=== PATIENT | female | born 1945 | race African-American/Black ===

== ENCOUNTER 2022-10-21 21:04 | Observation (INO) | payer MEDICARE ==
--- NOTE | 2022-10-21 21:21 | ED ---
General Adult HPI - General Chief complaint: Abdominal Pain Stated complaint: nausea/vomiting Time Seen by Provider: 10/21/22 21:15 Source: patient, family Mode of arrival: ambulatory Limitations: no limitations - History of Present Illness Initial comments: Patient presents to the ED with her son for evaluation. Patient states that she has had nausea and vomiting for the past 3 days or so. Patient also admits to having a mild cough and feeling generally weak. Patient also states that she has had "chills" at times. Patient denies having any "pain". Patient denies measured fever, headache, focal numbness/weakness/neuro deficit, visual changes, speech difficulty, sore throat, chest pain or pressure, dyspnea, palpitations, dizziness, abdominal pain, diarrhea or constipation, bloody or melanotic stool, hematemesis, dysuria or urinary symptoms, or any other symptoms or complaints. Patient's son states that the patient appeared to be dragging her left leg when she came out of the bathroom earlier today, and he is unsure if this may be a "h ip issue". Patient denies having any lower extremity pain or leg numbness/weakness. Patient denies Covid vaccination. - Related Data Home Medications Medication Instructions Recorded Confirmed Benztropine Mesylate [Cogentin] 2 mg PO BID 09/18/17 09/18/17 Loratadine [Claritin] 10 mg PO DAILY 09/18/17 09/18/17 Multivitamins, Thera [Multivitamin 1 tab PO DAILY 09/18/17 09/18/17 (formulary)] Triamcinolone 0.5% Cream [Kenalog 1 applic TOPICAL BID PRN 09/18/17 09/18/17 0.5% Cream] haloperidoL [Haldol] 3 mg PO HS 09/18/17 09/18/17 Allergies Allergy/AdvReac Type Severity Reaction Status Date / Time metformin Allergy Unknown Verified 10/21/22 21:14 Sulfa (Sulfonamide Allergy Unknown Verified 10/21/22 21:14 Antibiotics) Review of Systems ROS Statement: Those systems with pertinent positive or pertinent negative responses have been documented in the HPI. ROS Other: All systems not noted in ROS Statement are negative. Past Medical History Past Medical History: CVA/TIA, Dementia, Diabetes Mellitus, Hypertension, Osteoarthritis (OA) Additional Past Medical History / Comment(s): Pt states she is on an antibiotic for ear infection/throat infection at this time, TIA which affected speech, pt denies HTN but it is documented in past medical hx, diet controlled diabetes History of Any Multi-Drug Resistant Organisms: None Reported Past Surgical History: Orthopedic Surgery Additional Past Surgical History / Comment(s): I&D tooth abscess, left trigger finger surgery Past Anesthesia/Blood Transfusion Reactions: No Reported Reaction Past Psychological History: Anxiety, Bipolar, Depression Smoking Status: Never smoker Past Alcohol Use History: None Reported Past Drug Use History: None Reported - Past Family History Father Family Medical History: No Reported History Mother Family Medical History: No Reported History General Exam Limitations: no limitations General appearance: alert, in no apparent distress Head exam: Present: atraumatic, normocephalic Eye exam: Present: normal appearance, PERRL, EOMI ENT exam: Present: normal oropharynx, mucous membranes moist Respiratory exam: Present: normal lung sounds bilaterally. Absent: respiratory distress, wheezes, rales, rhonchi, stridor Cardiovascular Exam: Present: regular rate, normal rhythm, normal heart sounds, other (Normal radial pulses bilaterally) GI/Abdominal exam: Present: soft, diminished bowel sounds. Absent: distended, tenderness, guarding Rectal exam: Present: normal rectal tone, other (Brown-colored stool was recovered from rectal vault on digital rectal exam and sent for Hemoccult testing). Absent: tenderness Extremities exam: Present: other (Pelvis is stable and nontender; patient has full range of motion at bilateral hips). Absent: tenderness, pedal edema, calf tenderness Back exam: Absent: tenderness, CVA tenderness (R), CVA tenderness (L) Neurological exam: Present: alert, oriented X3, CN II-XII intact, other (Patient has 5 out of 5 strength in all 4 extremities; no evidence of neurological deficit). Absent: motor sensory deficit Psychiatric exam: Present: normal affect, normal mood Skin exam: Present: warm, dry, intact, normal color Course Vital Signs 10/21/22 10/21/22 10/21/22 21:09 22:00 23:00 Temperature 97.5 F L Pulse Rate 104 H 96 93 Respiratory 18 18 18 Rate Blood Pressure 148/83 144/89 159/79 O2 Sat by Pulse 99 98 98 Oximetry 10/22/22 00:00 Temperature 98.1 F Pulse Rate 96 Respiratory 16 Rate Blood Pressure 148/86 O2 Sat by Pulse 98 Oximetry - Reevaluation(s) Reevaluation #1: 10/21/22 23:43 Case, H&P, test results and ED management were discussed with Dr. Donahue. She accepts hospital admission. She has no further recommendations at this time. 10/21/22 23:49 Patient states that her symptoms have improved with ED treatment. Patient's abdomen remains soft and nontender on exam. Patient is aware of her test results, and she agrees with hospital admission at this time. Medical Decision Making - Medical Decision Making Was pt. sent in by a medical professional or institution (, JF, [employer], urgent care, hospital, or fpc...) When possible be specific @ -No Did you speak to anyone other than the patient for history (EMS, parent, family, police, friend...)? What history was obtained from this source @ -No Did you review nursing and triage notes (agree or disagree)? Why? @ -I reviewed and agree with nursing and triage notes Were old charts reviewed (outside hosp., previous admission, EMS record, old EKG, old radiological studies, urgent care reports/EKG's, fpc records)? Report findings @ -No old charts were reviewed Differential Diagnosis (chest pain, altered mental status, abdominal pain women, abdominal pain men, vaginal bleeding, weakness, fever, dyspnea, syncope, headache, dizziness, GI bleed, back pain, seizure, CVA, palpatations, mental health)? @ -Vomiting, gastroenteritis, food toxicity, influenza, Covid, viral illness, bronchitis, pneumonia, URI, dehydration, electrolyte abnormality, anemia, medication reaction EKG interpreted by me (3pts min.). @ -None done X-rays interpreted by me (1pt min.). @ -Negative chest x-ray CT interpreted by me (1pt min.). @ -None done U/S interpreted by me (1pt. min.). @ -None done What testing was considered but not performed or refused? (CT, X-rays, U/S, labs)? Why? @ -None What meds were considered but not given or refused? Why? @ -None Did you discuss the management of the patient with other professionals (professionals i.e. , JF, [employer], lab, RT, psych nurse, professor of social work, woodworker helper, teacher, service officer, porter sample case)? Give summary @ -See above Was smoking cessation discussed for >3mins.? @ -No Was critical care preformed (if so, how long)? @ -No Were there social determinants of health that impacted care today? How? (Homelessness, low income, unemployed, alcoholism, drug addiction, transportation, low edu. Level, literacy, decrease access to med. care, prison, rehab)? @ -No Was there de-escalation of care discussed even if they declined (Discuss DNR or withdrawal of care, Hospice)? DNR status @ -No What co-morbidities impacted this encounter? (DM, HTN, Smoking, COPD, CAD, Cancer, CVA, ARF, Chemo, Hep., AIDS, mental health diagnosis, sleep apnea, morbid obesity)? @ -None Was patient admitted / discharged? Hospital course, mention meds given and route, prescriptions, significant lab abnormalities, going to OR and other pertinent info. @ -Patient reports having nausea and vomiting since yesterday. Patient's viral studies are negative. Patient's chest x-ray is negative. Patient is afebrile and without leukocytosis. Patient has a benign abdominal exam. Patient's hemoglobin is noted to be 7.3 on evaluation. Patient's Hemoccult test is negative. I am uncertain of the etiology of the patient's anemia, but given she reports feeling weak, will admit the patient to the hospital for observation and further evaluation. Dr. Donahue has accepted hospital admission. Undiagnosed new problem with uncertain prognosis? @ -No Drug Therapy requiring intensive monitoring for toxicity (Heparin, Nitro, I nsulin, Cardizem)? @ -No Were any procedures done? @ -No Diagnosis/symptom? @ -Vomiting Acute, or Chronic, or Acute on Chronic? @ -Acute Uncomplicated (without systemic symptoms) or Complicated (systemic symptoms)? @ -Uncomplicated Side effects of treatment? @ -No Exacerbation, Progression, or Severe Exacerbation? @ -No Poses a threat to life or bodily function? How? (Chest pain, [place], [place], pneumonia, PE, COPD, DKA, ARF, appy, cholecystitis, CVA, Diverticulitis, Homicidal, Suicidal, threat to staff... and all critical care pts) @ -No Diagnosis/symptom? @ -Anemia Acute, or Chronic, or Acute on Chronic? @ -Uncertain Uncomplicated (without systemic symptoms) or Complicated (systemic symptoms)? @ -Uncomplicated Side effects of treatment? @ -none Exacerbation, Progression, or Severe Exacerbation] @ -no Poses a threat to life or bodily function? @ -no - Lab Data Result diagrams: 10/21/22 21:42 10/21/22 21:42 Lab Results 10/21/22 10/21/22 10/21/22 Range/Units 21:42 21:42 21:42 WBC 5.5 (3.8-10.6) k/uL RBC 2.51 L (3.80-5.40) m/uL Hgb 7.3 L (11.4-16.0) gm/dL Hct 22.4 L (34.0-46.0) % MCV 89.3 (80.0-100.0) fL MCH 28.9 (25.0-35.0) pg MCHC 32.3 (31.0-37.0) g/dL RDW 14.4 (11.5-15.5) % Plt Count 151 (150-450) k/uL MPV 7.3 Neutrophils % 65 % Lymphocytes % 27 % Monocytes % 5 % Eosinophils % 1 % Basophils % 0 % Neutrophils # 3.6 (1.3-7.7) k/uL Lymphocytes # 1.5 (1.0-4.8) k/uL Monocytes # 0.3 (0-1.0) k/uL Eosinophils # 0.1 (0-0.7) k/uL Basophils # 0.0 (0-0.2) k/uL Sodium 138 (137-145) mmol/L Potassium 4.7 (3.5-5.1) mmol/L Chloride 105 (98-107) mmol/L Carbon Dioxide 18 L (22-30) mmol/L Anion Gap 15 mmol/L BUN 19 H (7-17) mg/dL Creatinine 0.55 (0.52-1.04) mg/dL Est GFR (CKD-EPI)AfAm >90 (>60 ml/min/1.73 sqM) Est GFR (CKD-EPI)NonAf >90 (>60 ml/min/1.73 sqM) Glucose 156 H (74-99) mg/dL Calcium 9.5 (8.4-10.2) mg/dL Total Bilirubin 0.7 (0.2-1.3) mg/dL AST 34 (14-36) U/L ALT 26 (4-34) U/L Alkaline Phosphatase 118 (38-126) U/L Total Protein 9.0 H (6.3-8.2) g/dL Albumin 4.3 (3.5-5.0) g/dL Lipase 48 (23-300) U/L Stool Occult Blood (Negative) Coronavirus (PCR) (Not Detectd) Influenza Type A RNA Not Detected (Not Detectd) Influenza Type B (PCR) Not Detected (Not Detectd) 10/21/22 10/21/22 Range/Units 21:42 23:11 WBC (3.8-10.6) k/uL RBC (3.80-5.40) m/uL Hgb (11.4-16.0) gm/dL Hct (34.0-46.0) % MCV (80.0-100.0) fL MCH (25.0-35.0) pg MCHC (31.0-37.0) g/dL RDW (11.5-15.5) % Plt Count (150-450) k/uL MPV Neutrophils % % Lymphocytes % % Monocytes % % Eosinophils % % Basophils % % Neutrophils # (1.3-7.7) k/uL Lymphocytes # (1.0-4.8) k/uL Monocytes # (0-1.0) k/uL Eosinophils # (0-0.7) k/uL Basophils # (0-0.2) k/uL Sodium (137-145) mmol/L Potassium (3.5-5.1) mmol/L Chloride (98-107) mmol/L Carbon Dioxide (22-30) mmol/L Anion Gap mmol/L BUN (7-17) mg/dL Creatinine (0.52-1.04) mg/dL Est GFR (CKD-EPI)AfAm (>60 ml/min/1.73 sqM) Est GFR (CKD-EPI)NonAf (>60 ml/min/1.73 sqM) Glucose (74-99) mg/dL Calcium (8.4-10.2) mg/dL Total Bilirubin (0.2-1.3) mg/dL AST (14-36) U/L ALT (4-34) U/L Alkaline Phosphatase (38-126) U/L Total Protein (6.3-8.2) g/dL Albumin (3.5-5.0) g/dL Lipase (23-300) U/L Stool Occult Blood Negative (Negative) Coronavirus (PCR) Not Detected (Not Detectd) Influenza Type A RNA (Not Detectd) Influenza Type B (PCR) (Not Detectd) - Radiology Data Chest x-ray: No active cardiopulmonary disease. No change. Normal heart. Disposition Clinical Impression: Nausea and vomiting, Anemia Disposition: ADMITTED IP TO THIS HOSP Condition: Stable Is patient prescribed a controlled substance at d/c from ED?: No Referrals: Galina Narayanan MD [Primary Care Provider] - 1-2 days Time of Disposition: 23:43
[2022-10-21] MEDS ORDERED: SODIUM CHLORIDE 0.9% 500 ML 500 ML IV STA (21:26)
[2022-10-21] MEDS ORDERED: ONDANSETRON 4 MG/2 ML VIAL IVP STA (21:26)
--- NOTE | 2022-10-21 21:51 | XR ---
EXAMINATION TYPE: XR chest 2V DATE OF EXAM: 10/21/2022 COMPARISON: 09/18/2017 HISTORY: Chest pain. Cough TECHNIQUE: FINDINGS: Heart and mediastinum are normal. Lungs are clear. Diaphragm is normal. Bony thorax is inta ct IMPRESSION: No active cardiopulmonary disease. No change. Normal heart.
[2022-10-21 21:54] LABS: Basophils % (A) 0 %; Eosinophils # (A) 0.1 k/uL (0-0.7); Eosinophils % (A) 1 %; HCT 22.4 % (34.0-46.0); HGB 7.3 gm/dL (11.4-16.0); Lymphocytes # (A) 1.5 k/uL (1.0-4.8); Lymphocytes % (A) 27 %; MCH 28.9 pg (25.0-35.0); MCHC 32.3 g/dL (31.0-37.0); MCV 89.3 fL (80.0-100.0); Mean Platelet Volume 7.3; Monocytes # (A) 0.3 k/uL (0-1.0); Monocytes % (A) 5 %; Neutrophils # (A) 3.6 k/uL (1.3-7.7); Neutrophils % (A) 65 %; Platelet Count 151 k/uL (150-450); RBC 2.51 m/uL (3.80-5.40); RDW 14.4 % (11.5-15.5); WBC 5.5 k/uL (3.8-10.6)
[2022-10-21 22:05] LABS: ALT 26 U/L (4-34); AST 34 U/L (14-36); African American GFR (CKD) >90 (>60 ml/min/1.73 sqM); Albumin 4.3 g/dL (3.5-5.0); Alkaline Phosphatase 118 U/L (38-126); Anion Gap 15 mmol/L; Blood Urea Nitrogen 19 mg/dL (7-17); Calcium 9.5 mg/dL (8.4-10.2); Carbon Dioxide 18 mmol/L (22-30); Chloride 105 mmol/L (98-107); Glucose 156 mg/dL (74-99); Lipase 48 U/L (23-300); Non-African American GFR(CKD) >90 (>60 ml/min/1.73 sqM); Potassium 4.7 mmol/L (3.5-5.1); Sodium 138 mmol/L (137-145); Total Bilirubin 0.7 mg/dL (0.2-1.3)
[2022-10-21] MEDS ORDERED: NALOXONE 0.4 MG/ML 1 ML VIAL IV PRN (23:43)
[2022-10-21] MEDS ORDERED: ONDANSETRON 4 MG/2 ML VIAL IVP PRN (23:44)
[2022-10-21] MEDS: SODIUM CHLORIDE 0.9% 1,000 ML IV SCH (23:59)
[2022-10-22 06:11] LABS: Basophils # (A) 0.1 k/uL (0-0.2); Basophils % (A) 1 %; Eosinophils # (A) 0.2 k/uL (0-0.7); Eosinophils % (A) 2 %; HCT 35.4 % (34.0-46.0); Lymphocytes # (A) 3.1 k/uL (1.0-4.8); Lymphocytes % (A) 33 %; MCH 28.9 pg (25.0-35.0); MCHC 33.1 g/dL (31.0-37.0); MCV 87.2 fL (80.0-100.0); Mean Platelet Volume 6.9; Monocytes # (A) 0.4 k/uL (0-1.0); Monocytes % (A) 4 %; Neutrophils # (A) 5.5 k/uL (1.3-7.7); Neutrophils % (A) 59 %; Platelet Count 239 k/uL (150-450); RBC 4.06 m/uL (3.80-5.40); RDW 13.9 % (11.5-15.5); WBC 9.4 k/uL (3.8-10.6)
[2022-10-22 06:52] LABS: ALT 23 U/L (4-34); AST 27 U/L (14-36); African American GFR (CKD) >90 (>60 ml/min/1.73 sqM); Albumin 3.4 g/dL (3.5-5.0); Alkaline Phosphatase 96 U/L (38-126); Anion Gap 7 mmol/L; Blood Urea Nitrogen 17 mg/dL (7-17); Carbon Dioxide 24 mmol/L (22-30); Chloride 107 mmol/L (98-107); Glucose 113 mg/dL (74-99); Non-African American GFR(CKD) >90 (>60 ml/min/1.73 sqM); Potassium 4.1 mmol/L (3.5-5.1); Sodium 138 mmol/L (137-145); Total Bilirubin 0.6 mg/dL (0.2-1.3); Total Protein 7.4 g/dL (6.3-8.2)
[2022-10-22 07:49] LABS: HGB 11.7 gm/dL (11.4-16.0)
--- NOTE | 2022-10-22 09:55 | P.HPIM ---
History of Present Illness This is a pleasant 76 years old female with past medical history of CVA/TIA, Dementia, Diabetes Mellitus, Hypertension, Osteoarthritis, Pt states she is on an antibiotic for ear infection/throat infection at this time, TIA which affected speech, diet controlled diabetes, Anxiety, Bipolar, Depression Information were obtained from the patient and son Mr. Gonzalez at bedside. As per son, 10 PM last night and he was helping his mother getting out of the restroom when he notices that she was dragging her left leg and her speech was abnormal, so they came to the hospital. Patient also was complaining of from some nausea and vomiting, she vomited about 3 times yesterday with no blood however no vomiting today and she finished half of her breakfast this morning, no abdominal pain, she's been constipated for 2 days, no diarrhea. She denies any chest pain or dyspnea, no abdominal pain, no urinary symptoms She's been complaining from headache frontal about 4-5/10 in severity, no sinus symptoms, she is ADMITTED from some mild neck pain. She is fully awake and oriented. No numbness or tingling. Family requested to call the son Mr. Ar Ramírez Vitals are stable and patient is a febrile. Labs are reviewed, CBC showing low hemoglobin 7.3, hold records from 2017 was 11.8. BUN elevated 19, rest of the BMP is unremarkable, glucose 156. Liver enzymes no t elevated. Lipase normal Patient covid and influenza virus is are detected Chest x-ray: No active process. Occult blood in the stool is negative Review of Systems Review of systems CONSTITUTIONAL: No fever, no malaise, no fatigue. HEENT: No recent visual problems or hearing problems. Denied any sore throat. CARDIOVASCULAR: No orthopnea, PND, no palpitations, no syncope. PULMONARY: No shortness of breath, no cough, no hemoptysis. GASTROINTESTINAL: No diarrhea, no nausea, no vomiting, no abdominal pain. Normoactive bowel sounds. NEUROLOGICAL: No headaches, no weakness, no numbness. HEMATOLOGICAL: Denies any bleeding or petechiae. GENITOURINARY: Denies any burning micturition, frequency, or urgency. MUSCULOSKELETAL/RHEUMATOLOGICAL: Denies any joint pain, swelling, or any muscle pain. ENDOCRINE: Denies any polyuria or polydipsia. Past Medical History Past Medical History: CVA/TIA, Dementia, Diabetes Mellitus, Hypertension, Osteoarthritis (OA) Additional Past Medical History / Comment(s): Pt states she is on an antibiotic for ear infection/throat infection at this time, TIA which affected speech, pt denies HTN but it is documented in past medical hx, diet controlled diabetes History of Any Multi-Drug Resistant Organisms: None Reported Past Surgical History: Orthopedic Surgery Additional Past Surgical History / Comment(s): I&D tooth abscess, left trigger finger surgery Past Anesthesia/Blood Transfusion Reactions: No Reported Reaction Past Psychological History: Anxiety, Bipolar, Depression Smoking Status: Never smoker Past Alcohol Use History: None Reported Past Drug Use History: None Reported - Past Family History Father Family Medical History: No Reported History Mother Family Medical History: No Reported History Medications and Allergies Home Medications Medication Instructions Recorded Confirmed Type Atorvastatin [Lipitor] 40 mg PO HS 10/22/22 10/22/22 History Benztropine Mesylate [Cogentin] 1 mg PO BID 10/22/22 10/22/22 History Celecoxib [CeleBREX] 100 mg PO BID 10/22/22 10/22/22 History Metoprolol Tartrate [Lopressor] 50 mg PO BID 10/22/22 10/22/22 History haloperidoL [Haldol] 2.5 mg PO HS 10/22/22 10/22/22 History Allergies Allergy/AdvReac Type Severity Reaction Status Date / Time metformin Allergy Unknown Verified 10/22/22 08:12 Sulfa (Sulfonamide Allergy Unknown Verified 10/22/22 08:12 Antibiotics) Physical Exam Vitals: Vital Signs Temp Pulse Pulse Resp BP BP Pulse Ox 10/22/22 00:20 98.3 F 93 16 149/75 98 10/22/22 00:00 98.1 F 96 16 148/86 98 10/21/22 23:00 93 18 159/79 98 10/21/22 22:00 96 18 144/89 98 10/21/22 21:09 97.5 F L 104 H 18 148/83 99 Intake and Output 10/21/22 10/21/22 10/22/22 14:59 22:59 06:59 Other: Weight 77.111 kg 77.111 kg GENERAL: The patient is alert and oriented x3, not in any acute distress. Well developed, well nourished. HEENT: Pupils are round and equally reacting to light. EOMI. No scleral icterus. No conjunctival pallor. Normocephalic, atraumatic. No pharyngeal erythema. No thyromegaly. CARDIOVASCULAR: S1 and S2 present. No murmurs, rubs, or gallops. PULMONARY: Chest is clear to auscultation, no wheezing or crackles. ABDOMEN: Soft, nontender, nondistended, normoactive bowel sounds. No palpable organomegaly. MUSCULOSKELETAL: No joint swelling or deformity. -EXTREMITIES: No cyanosis, clubbing, or pedal edema. Left leg mildly weaker than the right leg and is slower, no loss of sensation. Meningeal signs are absent NEUROLOGICAL: Gross neurological examination did not reveal any focal deficits. SKIN: No rashes. no petechiae. Results CBC & Chem 7: 10/22/22 05:49 10/22/22 05:49 Labs: Abnormal Lab Results - Last 24 Hours (Table) 10/21/22 10/21/22 Range/Units 21:42 21:42 RBC 2.51 L (3.80-5.40) m/uL Hgb 7.3 L (11.4-16.0) gm/dL Hct 22.4 L (34.0-46.0) % Carbon Dioxide 18 L (22-30) mmol/L BUN 19 H (7-17) mg/dL Glucose 156 H (74-99) mg/dL Total Protein 9.0 H (6.3-8.2) g/dL Assessment and Plan Assessment: Left leg weakness, rule out stroke, with mild pain so we will check x-ray of the left hip Nausea vomiting suspicious for acute gastroenteritis, improving Low hemoglobin, recheck hemoglobin is normal, keep monitoring Diabetes mellitus Hypertension History of CVA/TIA History of dementia History of osteoarthritis History of bipolar and anxiety, not active tissue continue with IV fluids Plan: Check hemoglobin A1c Check urinalysis Follow-up hemoglobin Anemia workup Labs and medication were reviewed.. Continue same treatment. Continue with symptomatic treatment. Resume home medication. Monitor labs and vitals. DVT and GI prophylaxis. Further recommendations as per clinical course of the patient DVT prophylaxis: Subcutaneous heparin, deferred . GI Prophylaxis: Pepcid PT/OT: Pending Prognosis is guarded
[2022-10-22 11:05] LABS: % Iron Saturation 18.5 (12.00-45.00)
--- NOTE | 2022-10-22 11:52 | CT ---
EXAMINATION TYPE: CT brain wo con CT DLP: 1121 mGycm, Automated exposure control for dose reduction was used. DATE OF EXAM: 10/22/2022 11:47 AM COMPARISON: CT brain 10/25/2014. CLINICAL INDICATION:Female, 76 years old with history of left leg weakness, TECHNIQUE: Brain: Multiple axial CT images of the brain were obtained without IV contrast. Coronal and sagittal reformats reviewed. FINDINGS: Brain: Extra-axial spaces: No abnormal extra-axial fluid collections. Ventricular system: Within normal limits Cerebral parenchyma: No acute intraparenchymal hemorrhage or mass effect. The abbott-white junction is well differentiated. Scattered hypoattenuating areas are seen within the white matter. Cerebellum: Unremarkable. Mass effect: No evidence of midline shift. Intracranial vasculature: Atherosclerotic calcifications of the intracranial vessels. Soft tissues: Normal. Calvarium/osseous structures: No depressed skull fracture. Paranasal sinuses and mastoid air cells: Clear Visualized orbits: The lenses are surgically removed from the globes. IMPRESSION: 1. No acute intracranial process. 2. Nonspecific white matter changes, likely secondary to chronic small vessel ischemic disease.
--- NOTE | 2022-10-22 12:18 | XR ---
EXAMINATION TYPE: XR Hip LT and AP Pelvis DATE OF EXAM: 10/22/2022 COMPARISON: CT abdomen and pelvis 2017 HISTORY: Pelvic and left hip pain. TECHNIQUE: A single AP view of the pelvis is obtained. Two views of the left hip are obtained. FINDINGS: Exam is suboptimal secondary to patient's large body habitus along with demineralization of osseous structures. There is moderate axial joint space loss in the left hip with [id number] left-sided acetabular spurring redemonstrated. Right hip shows similar findings. Pubic symphysis is intact. Suboptimal evaluation of sacroiliac joints due to body habitus. There is overlying 4.8 cm rim calcified fibroid in the left pelvis redemonstrated. IMPRESSION: As above.
[2022-10-22] MEDS: SODIUM CHLORIDE 0.9% 1,000 ML IV SCH (15:17)
[2022-10-22 16:56] LABS: Amorphous Sediment,Urine Rare /hpf; Appearance,Urine Clear (Clear); Bilirubin,Urine Negative (Negative); Blood,Urine Trace (Negative); Color,Urine Yellow; Glucose,Urine (UA) Negative (Negative); Ketones,Urine 2+ (Negative); Leukocyte Esterase,Urine Moderate (Negative); Mucus,Urine Occasional /hpf; Nitrite,Urine Negative (Negative); PH, Urine 5.5 (5.0-8.0); Protein,Urine Trace (Negative); RBC,Urine 1 /hpf (0-5); Squamous Epithelial Cell,Urine 1 /hpf (0-4); WBC,Urine 9 /hpf (0-5)
[2022-10-22] MEDS: METOPROLOL TARTRATE 50 MG TAB PO SCH (21:21)
[2022-10-22] MEDS: ATORVASTATIN 40 MG TAB PO SCH (21:21)
[2022-10-22] MEDS: haloperidoL 5 MG TAB PO SCH (21:21)
[2022-10-22] MEDS: BENZTROPINE MESYLATE 1 MG TAB PO SCH (21:22)
[2022-10-23] MEDS: SODIUM CHLORIDE 0.9% 1,000 ML IV SCH (05:24)
--- NOTE | 2022-10-23 08:28 | P.CNNES ---
History of Present Illness Consult date: 10/22/22 Requesting physician: Josué Esposito Reason for Consult: Left leg weakness History of Present Illness: Patient is a 76-year-old female with history of dementia, diabetes, was brought to the hospital by patient's family yesterday at 9:04 PM for possible medication concerns. Patient states that she came to the hospital because "I was vomiting, had chills, head was hurting". I spoke to patient's son also on the phone. History obtained from the patient and her son's report. Patient has been on Haldol 2.5 mg daily and Cogentin 2 mg daily. She takes both of these medications at night. Patient tells me that she cannot take Haldol without Cogentin, as it upsets her stomach. About 3 weeks ago, patient ran out of both of these medications. Patient's son was able to get the refill of Haldol from [facility] pharmacy, but Cogentin required authorization from her physician. It took another couple days to get Cogentin after her physician's authorization. Patient usually takes Cogentin 2 mg tablet at night. This time the pharmacist gave her Cogentin 1 mg tablets and she was supposed to take 2 tablets at bedtim e. As a physical appearance of the medication was different, patient would not take her Cogentin, and also would not take her Haldol with it. Therefore she started feeling "sick" for the past 1 week". Not able to walk like she used to, and "tongue would not relax", and her stomach was hurting and was vomiting. Therefore she was brought to the hospital. Patient's son mentions that patient at baseline walks without any assistive device. In June 2022, patient fell him a hit her head. She was in hospital for a week and then went to rehabilitation. She used walker for a few days, but then stopped using any device. At present patient lives at her home. Vital signs arrival blood pressure 148/83, pulse rate 104, temperature 97.5. Blood test shows normal WBC, hemoglobin 7.3, platelets 151, Chem-7 is normal. Hemoglobin A1c 7.8, hepatic panel normal, Bloom virus PCR negative, influenza screen negative. Stool occult blood negative. Repeat blood test with normal hemoglobin 11.7, likely a lab error earlier. Pelvic x-ray revealed moderate axial joint space loss in the left hip with moderate to severe left-sided acetabular spurring redemonstrated. Right hip shows similar findings. Suboptimal evaluation of sacral iliac joints due to body habitus. Chest x-ray showed no active cardiopulmonary disease. CT head revealed no acute intracranial process. Nonspecific white matter changes, likely secondary to chronic small vessel ischemic disease. I personally review CT had come agree with the findings. Grossly narrow bilateral external auditory canal, with moderate to wax on the right. Patient's current medications include metoprolol 50 matter twice a day, Celebrex 100 mg twice a day, Cogentin 1 mg twice a day (she takes 2 mg once at bedtime), Haldol 2.5 g at bedtime and Lipitor 40 mg at bedtime. Patient has history of diabetes for years. No tobacco or alcohol use. She has history of TIA in 15 years ago when she was diagnosed with diabetes. Review of Systems Constitutional: Denies chills, Denies fever Eyes: denies blurred vision, denies pain Ears: bilateral: decreased hearing Ears, nose, mouth and throat: Denies headache, Denies sore throat Cardiovascular: Denies chest pain, Denies shortness of breath Respiratory: Denies cough Gastrointestinal: Reports abdominal pain, Reports nausea, Reports vomiting Genitourinary: Denies dysuria, Denies hematuria Integumentary: Denies pruritus, Denies rash Neurological: Reports as per HPI, Denies convulsions, Denies loss of vision Psychiatric: Reports anxiety Endocrine: Reports as per HPI, Denies fatigue, Denies weight change Past Medical History Past Medical History: CVA/TIA, Dementia, Diabetes Mellitus, Hypertension, Osteoarthritis (OA) Additional Past Medical History / Comment(s): Pt states she is on an antibiotic for ear infection/throat infection at this time, TIA which affected speech, pt denies HTN but it is documented in past medical hx, diet controlled diabetes History of Any Multi-Drug Resistant Organisms: None Reported Past Surgical History: Orthopedic Surgery Additional Past Surgical History / Comment(s): I&D tooth abscess, left trigger finger surgery Past Anesthesia/Blood Transfusion Reactions: No Reported Reaction Past Psychological History: Anxiety, Bipolar, Depression Smoking Status: Never smoker Past Alcohol Use History: None Reported Past Drug Use History: None Reported - Past Family History Father Family Medical History: No Reported History Mother Family Medical History: No Reported History Medications and Allergies Home Medications Medication Instructions Recorded Confirmed Type Atorvastatin [Lipitor] 40 mg PO HS 10/22/22 10/22/22 History Benztropine Mesylate [Cogentin] 1 mg PO BID 10/22/22 10/22/22 History Celecoxib [CeleBREX] 100 mg PO BID 10/22/22 10/22/22 History Metoprolol Tartrate [Lopressor] 50 mg PO BID 10/22/22 10/22/22 History haloperidoL [Haldol] 2.5 mg PO HS 10/22/22 10/22/22 History Allergies Allergy/AdvReac Type Severity Reaction Status Date / Time metformin Allergy Unknown Verified 10/22/22 08:12 Sulfa (Sulfonamide Allergy Unknown Verified 10/22/22 08:12 Antibiotics) Physical Examination - Vital Signs Vital Signs: Vital Signs Temp Pulse Pulse Resp BP BP Pulse Ox 10/22/22 07:00 98.2 F 93 16 158/82 100 10/22/22 00:20 98.3 F 93 16 149/75 98 10/22/22 00:00 98.1 F 96 16 148/86 98 10/21/22 23:00 93 18 159/79 98 10/21/22 22:00 96 18 144/89 98 10/21/22 21:09 97.5 F L 104 H 18 148/83 99 Intake and Output 10/21/22 10/22/22 10/22/22 22:59 06:59 14:59 Intake Total 118 Balance 118 Intake: Oral 118 Other: # Voids 1 Weight 77.111 kg 77.111 kg Patient is an elderly Afro-Faroese female, very pleasant, in no acute distress. Patient is alert awake. Patient knows it is and of September, and the year is . Speech and language functions are normal. Patient can name and repeat very well. Patient has somewhat hoarse voice with some nasal tone to it. No obvious aphasia or dysarthria. Attention, concentration and fund of knowledge is adequate. Patient has very obvious tardive dyskinesia. On cranial nerve examination, pupils are equal, round and reacting to light, vis ual cabrera are full on confrontation, with no neglect on double simultaneous stimulation. Extraocular muscles are intact with no nystagmus. Face is symmetric, tongue protrudes to the midline. Palatal elevation and sensation normal, hearing is moderately decreased and shoulder shrug normal, facial sensation normal. Patient appears to have torticollis. On muscle strength testing, there is no pronator drift and the strength is normal in arms and legs distally and proximally, except left hip flexion, which is 4+, normal on the right. Her hip adduction, abduction, knees and ankles are all normal. Examination of the hip was negative for any pain or restriction. Deep tendon reflexes are (right/left) biceps 1/2, brachioradialis 1/2, knee 2/2, ankles 0/0 and plantars downgoing bilaterally. Sensory to touch is equal with no neglect on double simultaneous stimulation. Cerebellar function showed no ataxia for [id number] testing. No dysdiadochokinesia. No ataxia for [id number] testing on either side. Tone is mildly increased bilaterally and bulk of muscles normal. Gait: Patient able to get up from the bed, walks with slight stoop and shuffling. Patient believes her gait is still not able to walk like she used to. On general examination, there is no carotid bruit or murmur, S1-S2 audible. Chest is clear on consultation. Abdomen is soft nontender. No organomegaly, b owel sounds present. Peripheral pulses are present. No edema. Results - Laboratory Findings CBC and BMP: 10/22/22 05:49 10/22/22 05:49 Abnormal Lab Findings: Abnormal Labs 10/21/22 10/21/22 10/22/22 21:42 21:42 05:49 RBC 2.51 L Hgb 7.3 L Hct 22.4 L Carbon Dioxide 18 L BUN 19 H Glucose 156 H 113 H Hemoglobin A1c Total Protein 9.0 H Albumin 3.4 L 10/22/22 05:49 RBC Hgb Hct Carbon Dioxide BUN Glucose Hemoglobin A1c 7.8 H Total Protein Albumin Assessment and Plan Assessment: * Difficulty with ambulation, likely due to medication side effect. Patient has not been taking her Cogentin, likely resulting in extrapyramidal side effects and difficulty with ambulation. * Tardive dyskinesia, likely due to long-term side effect of Haldol. * Diabetes * Hypertension * Osteoarthritis Plan: * Resume Cogentin 1 mg twice a day. Patient also on Haldol 2.5 mg at bedtime. Consider psychiatry evaluation to address her psych medications. * B12 472, folate 32.10, both normal. * Patient has left hip flexion weakness. Patient's hip adduction, abduction and rest of the strength of the left leg is normal. No significant pain on examination of the hip. Patient's x-ray of the pelvis showed 4.8 cm calcified fibroid in the left pelvis. Uncertain if this fibroid is compressing the lumbar plexus. Consider ADAPTIVE PHYSICAL EDUCATION SPECIALIST consult. * PT OT evaluate gait. * Neurology will follow. Thank you for the consult. Time with Patient: Greater than 30
[2022-10-23] MEDS: METOPROLOL TARTRATE 50 MG TAB PO SCH ×2 (08:55→21:04)
[2022-10-23] MEDS: BENZTROPINE MESYLATE 1 MG TAB PO SCH ×2 (08:55→21:05)
[2022-10-23] MEDS ORDERED: SODIUM CHLORIDE 0.9% 1,000 ML IV SCH (09:15)
[2022-10-23 10:21] LABS: Basophils # (A) 0.04 X 10*3/uL (0.00-0.10); Basophils % (A) 0.4 %; Eosinophils # (A) 0.16 X 10*3/uL (0.04-0.35); Eosinophils % (A) 1.6 %; HCT 36.5 % (37.2-46.3); HGB 11.4 g/dL (12.0-15.0); Immature Grans, Automated 0.6 %; Lymphocytes # (A) 3.62 X 10*3/uL (0.90-5.00); Lymphocytes % (A) 35.4 %; MCH 28.3 pg (27.0-32.0); MCHC 31.2 g/dL (32.0-37.0); MCV 90.6 fL (80.0-97.0); Mean Platelet Volume 10.5 fL (9.5-12.2); Monocytes # (A) 0.73 X 10*3/uL (0.20-1.00); Monocytes % (A) 7.1 %; NRBC Per 100 WBC 0 /100 WBCS (0.0-0.0); Neutrophils # (A) 5.61 X 10*3/uL (1.80-7.70); Neutrophils % (A) 54.9 %; Platelet Count 217 X 10*3/uL (140-440); RBC 4.03 X 10*6/uL (4.10-5.20); RDW 13.5 % (11.5-14.5); WBC 10.22 X 10*3/uL (4.50-10.00)
[2022-10-23 10:38] LABS: African American GFR (CKD) 98.2 (60.0-200.0); Anion Gap 10.3 mmol/L (10.00-18.00); BUN/Creat Ratio 11.71 Ratio (12.00-20.00); Blood Urea Nitrogen 8.2 mg/dL (9.0-27.0); Calcium 9.2 mg/dL (8.7-10.3); Carbon Dioxide 23.7 mmol/L (20.0-27.5); Non-African American GFR(CKD) 84.8 (60.0-200.0); Potassium 4.1 mmol/L (3.5-5.5)
--- NOTE | 2022-10-23 11:32 | P.PN ---
Subjective This is a pleasant 76 years old female with past medical history of CVA/TIA, Dementia, Diabetes Mellitus, Hypertension, Osteoarthritis, Pt states she is on an antibiotic for ear infection/throat infection at this time, TIA which affected speech, diet controlled diabetes, Anxiety, Bipolar, Depression Information were obtained from the patient and son Mr. Gonzalez at bedside. As per son, 10 PM last night and he was helping his mother getting out of the restroom when he notices that she was dragging her left leg and her speech was abnormal, so they came to the hospital. Patient also was complaining of from some nausea and vomiting, she vomited about 3 times yesterday with no blood however no vomiting today and she finished half of her breakfast this morning, no abdominal pain, she's been constipated for 2 days, no diarrhea. She denies any chest pain or dyspnea, no abdominal pain, no urinary symptoms She's been complaining from headache frontal about 4-5/10 in severity, no sinus symptoms, she is ADMITTED from some mild neck pain. She is fully awake and oriented. No numbness or tingling. Family requested to call the son Mr. Ar Ramírez Vitals are stable and patient is a febrile. Labs are reviewed, CBC showing low hemoglobin 7.3, hold records from 2017 was 11 .8. BUN elevated 19, rest of the BMP is unremarkable, glucose 156. Liver enzymes not elevated. Lipase normal Patient covid and influenza virus is are detected Chest x-ray: No active process. Occult blood in the stool is negative 10/23/2022 Patient is improving slowly and gradually, she feels better, weakness in her leg is better. No urinary symptoms today. She tolerates diet well 100% No diarrhea. Vitals are stable. Neurology input is appreciated, extrapyramidal side effects is suspected, psy chiatric team consulted. Patient is on normal saline floor to 40 mL/h. Continue with ceftriaxone follow- up urine culture results Hemoglobin stable, resume subcu heparin Objective - Vital Signs Vital signs: Vital Signs Temp 98.2 F 10/23/22 07:00 Pulse 87 10/23/22 07:00 Resp 16 10/23/22 07:00 BP 129/71 10/23/22 07:00 Pulse Ox 97 10/23/22 07:00 FiO2 Intake & Output 10/22/22 10/23/22 10/23/22 18:59 06:59 18:59 Intake Total 118 Output Total 810 933 Balance -692 -933 Intake: Oral 118 Output: Urine 600 801 Post Void Residual 210 132 Other: Voiding Method Toilet # Voids 0 - Exam GENERAL: The patient is alert and oriented x3, not in any acute distress. Well developed, well nourished. HEENT: Pupils are round and equally reacting to light. EOMI. No scleral icterus. No conjunctival pallor. Normocephalic, atraumatic. No pharyngeal erythema. No thyromegaly. CARDIOVASCULAR: S1 and S2 present. No murmurs, rubs, or gallops. PULMONARY: Chest is clear to auscultation, no wheezing or crackles. ABDOMEN: Soft, nontender, nondistended, normoactive bowel sounds. No palpable organomegaly. MUSCULOSKELETAL: No joint swelling or deformity. EXTREMITIES: No cyanosis, clubbing, or pedal edema. NEUROLOGICAL: Gross neurological examination did not reveal any focal deficits. SKIN: No rashes. no petechiae. - Labs CBC & Chem 7: 10/23/22 07:03 10/23/22 07:03 Labs: Abnormal Lab Results - Last 24 Hours (Table) 10/22/22 10/22/22 10/23/22 Range/Units 05:49 15:41 07:03 WBC 10.22 H (4.50-10.00) X 10*3/uL RBC 4.03 L (4.10-5.20) X 10*6/uL Hgb 11.4 L (12.0-15.0) g/dL Hct 36.5 L (37.2-46.3) % MCHC 31.2 L (32.0-37.0) g/dL Immature Gran # 0.06 H (0.00-0.04) X 10*3/uL BUN (9.0-27.0) mg/dL BUN/Creatinine Ratio (12.00-20.00) Ratio Glucose (70-110) mg/dL Folate 32.10 H (4.40-31.00) ng/mL Urine Protein Trace H (Negative) Urine Ketones 2+ H (Negative) Urine Blood Trace H (Negative) Ur Leukocyte Esterase Moderate H (Negative) Urine WBC 9 H (0-5) /hpf Amorphous Sediment Rare H (None) /hpf Urine Mucus Occasional H (None) /hpf 10/23/22 Range/Units 07:03 WBC (4.50-10.00) X 10*3/uL RBC (4.10-5.20) X 10*6/uL Hgb (12.0-15.0) g/dL Hct (37.2-46.3) % MCHC (32.0-37.0) g/dL Immature Gran # (0.00-0.04) X 10*3/uL BUN 8.2 L (9.0-27.0) mg/dL BUN/Creatinine Ratio 11.71 L (12.00-20.00) Ratio Glucose 154 H (70-110) mg/dL Folate (4.40-31.00) ng/mL Urine Protein (Negative) Urine Ketones (Negative) Urine Blood (Negative) Ur Leukocyte Esterase (Negative) Urine WBC (0-5) /hpf Amorphous Sediment (None) /hpf Urine Mucus (None) /hpf Microbiology - Last 24 Hours (Table) 10/23/22 01:23 Urine Culture - Preliminary Urine,Voided Assessment and Plan Assessment: Acute urinary tract infection Generalized leg weakness, suspected extrapyramidal side effects from psych medication Nausea vomiting suspicious for acute gastroenteritis, improving Low hemoglobin, recheck hemoglobin is normal, keep monitoring Diabetes mellitus Hypertension History of CVA/TIA History of dementia History of osteoarthritis History of bipolar and anxiety, not active tissue continue with IV fluids Plan: Continue with ceftriaxone follow-up urine culture Neurology input is appreciated Consult psych service to address medication Labs and medication were reviewed.. Continue same treatment. Continue with symptomatic treatment. Resume home medication. Monitor labs and vitals. DVT and GI prophylaxis. Further recommendations as per clinical course of the patient DVT prophylaxis: Subcutaneous heparin, GI Prophylaxis: Pepcid PT/OT: Pending, OT recommended home health care Prognosis is guarded
[2022-10-23] MEDS: FAMOTIDINE 20 MG/2 ML VIAL IV SCH ×2 (12:40→21:05)
--- NOTE | 2022-10-23 15:05 | P.CN ---
Psychiatric Consult - . Consult date: 10/23/22 Consult:: 10/23/22 14:00 IDENTIFYING DATA: This patient is a 76-year-old -Burkin[place] female who currently lives with her brother she is . REASON FOR REFERRAL: Psychiatry was consulted for possible EPS reaction HISTORY OF PRESENT ILLNESS: The patient presented to the hospital for evaluation with patient's son on 10/21 for nausea and vomiting for the past 3 days. Patient was also endorsing having a cough fatigue. Patient apparently was noticed by son to be dragging her left leg. Patient was admitted to the medical floors for treatment and evaluation. Patient had a computed tomography scan of her brain which did not show any acute changes or hemorrhages however did show chronic small vessel ischemia. Neurology has been following a long and advised patient had lip smacking movements and chewing which likely were associated with medication side effects and tardive dyskinesia. Patient was seen sitting in her chair today and agreeable to speech and language specialist. She did appear to have facial asymmetry which appeared to be mild and did not show any visible chewing or lipsmacking movements. She was fairly concrete however very pleasant and directable. She claims that she moved to [place] from [facility] about 4 months ago. She states she was having chills nausea and vomiting at home however now is feeling better in the hospital. Apparently patient states that she does have a chronic history of tardive dyskinesia likely related from her antipsychotic that she has been on for several years now which was Haldol. She claims that taking Cogentin has Medicare and feel better. She claims that when she stops taking both of the medications she starts developing they tardive dyskinesia signs again. She claims that she does have chronic auditory hallucinations however states that they are "quiet and not bothering me". She states she is not paranoid at this time, denies any suicidal or homicidal ideation intent or plan. Denies any visual hallucinations. She states that her sleep has been on and off and appetite has been fair. She claims that she tries and take her medications regularly at home with help of her family. She is denying any depression or any anxiety at this time. She was fairly pleasant and directable, goal oriented and logical. Patients admits to using recreational drugs or cigarettes. PAST PSYCHIATRIC HISTORY: Patient has a a history of schizophrenia. Patient has been chronically on haloperidol and Cogentin. She states that she was last psychiatrically admitted several years ago to "[facility]". Patient denies any psychiatric outpatient follow-up over has stated that she has had several different psychiatrists in the past. She currently follows of with her pcp for her meds. Patient denies any history of suicide attempts in the past. Past Medical History: CVA/TIA, Dementia, Diabetes Mellitus, Hypertension, Osteoarthritis (OA) Additional Past Medical History / Comment(s): Pt states she is on an antibiotic for ear infection/throat infection at this time, TIA which affected speech, pt denies HTN but it is documented in past medical hx, diet controlled diabetes History of Any Multi-Drug Resistant Organisms: None Reported Past Surgical History: Orthopedic Surgery Additional Past Surgical History / Comment(s): I&D tooth abscess, left trigger finger surgery Past Anesthesia/Blood Transfusion Reactions: No Reported Reaction Past Psychological History: Anxiety, Bipolar, Depression Smoking Status: Never smoker Past Alcohol Use History: None Reported Past Drug Use History: None Reported ALLERGIES: as per EMR. CHEMICAL DEPENDENCY HISTORY: as per HPI. FAMILY PSYCHIATRIC/SUBSTANCE USE HISTORY: Claims that her sister has some form of mental illness. SOCIAL HISTORY: Patient was born and raised in [place] however moved to [place] and now has moved recently back to [place] in the past 3-4 months. She currently lives with her brother, her son and she has 5 kids. She lives in a house. 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 Denies any legal history. MENTAL STATUS EXAM: General Appearance: Patient appears to be obese, short hair, mild facial asymmetry, stated age is alert, pleasant, and cooperative. Patient appears to have fair hygiene and grooming wearing hospital gown with fair eye contact. Behavior: Patient is calmly lying in bed without any agitated behavior. cooperative. pleasant Speech: Patient's speech is fluent and nonpressured. concrete. Mood/Affect: Patient reports their mood is "good", affect is congruent Suicidality/Homicidality: Patient denies having any suicidal or homicidal ideation intent or plan. Perceptions: Patient denies any visual hallucinations [and admitts to chronic and non distressing auditory halluicnations. Though content/process: There is no evidence of any delusional thought content and thought process is linear and goal-directed. concrete. Memory and concentration: AOX3, grossly intact for the purposes of this session. Can spell "WORLD" backwards Judgment and insight: fair IMPRESSIONS: schizophrenia tardive dyskinesia PLAN: -At this time patient DOES NOT meet criteria for inpatient psychiatric admission. -Would recommend the following medication changes/additions: Patient can continue on with her current medications including Cogentin 1 mg twice a day for EPS reaction, Haldol 2.5 mg daily at bedtime for psychosis. Cooperer offered patient several different options for adjusting her medications and switching to a second generation antipsychotic however patient at this time has declined that and wants to stay on haloperidol and Cogentin. Cooperer spoke to patient about the drawbacks of continuing on with a first generation antipsychotic and the development of EPS and also tardive dyskinesia however patient once again continue on with her current medication regimen. it was suggested to patient that she establish herself with an outpatient psychiatrist in the area to again have this discussion of adjusting her medications and even trying a vmat inhibitor such as Ingrezza to treat TD. patient agreed to this. -carnival worker to provide patient with outpatient mental health/psychiatry resources for appropriate follow up upon discharge -Communicated plan to patient's nurse -Psychiatry will sign off at this time -Please contact with any questions. 10/23/22 14:55
[2022-10-23] MEDS ORDERED: ARTIFICIAL TEARS-HYPROMELLOSE DROPS 15 ML BTL BOTH EYES PRN (17:35)
[2022-10-23] MEDS: haloperidoL 5 MG TAB PO SCH (21:04)
[2022-10-23] MEDS: ATORVASTATIN 40 MG TAB PO SCH (21:04)
[2022-10-23] MEDS: HEPARIN SODIUM,PORCINE/PF 5,000 UNIT/0.5 ML SYRINGE SQ SCH (21:05)
[2022-10-23] MEDS ORDERED: ACETAMINOPHEN TAB 325 MG TAB PO STA (23:36)
[2022-10-23] MEDS ORDERED: ACETAMINOPHEN TAB 325 MG TAB PO PRN (23:36)
[2022-10-24 07:23] VITALS: BP 144/84; PULSE 85; RESP 16; TEMP 98
[2022-10-24] MEDS: BENZTROPINE MESYLATE 1 MG TAB PO SCH (08:47)
[2022-10-24] MEDS: FAMOTIDINE 20 MG/2 ML VIAL IV SCH (08:47)
[2022-10-24] MEDS: METOPROLOL TARTRATE 50 MG TAB PO SCH (08:47)
[2022-10-24] MEDS: HEPARIN SODIUM,PORCINE/PF 5,000 UNIT/0.5 ML SYRINGE SQ SCH (08:47)
[2022-10-24 08:57] LABS: Glucose,Whole Blood 185 mg/dL (70-110)
--- NOTE | 2022-10-24 10:36 | P.PN ---
Subjective Progress Note Date: 10/23/22 Patient was seen for a follow-up. Patient is doing much better. Patient is sitting in the recliner. Patient states that she took a walk with the therapist and did well. She feels she is back to herself. Patient states that she sees Dr. Montez for tardive dyskinesia. She claims that she is on Baclofen for TD. She does complain of some pain in the neck. Objective - Vital Signs Vital signs: Vital Signs Temp 98.2 F 10/23/22 07:00 Pulse 87 10/23/22 07:00 Resp 16 10/23/22 07:00 BP 129/71 10/23/22 07:00 Pulse Ox 97 10/23/22 07:00 FiO2 Intake & Output 10/22/22 10/23/22 10/23/22 18:59 06:59 18:59 Intake Total 118 Output Total 810 933 Balance -692 -933 Intake: Oral 118 Output: Urine 600 801 Post Void Residual 210 132 Other: Voiding Method Toilet # Voids 0 - Exam Patient's mental status is normal. Her speech is less nasal. Cranial nerves are normal. Patient is less dystonic in the neck, and tardive d yskinesia is better. Muscle strength is normal. No ataxia. Sensations equal. - Labs CBC & Chem 7: 10/23/22 07:03 10/23/22 07:03 Labs: Abnormal Lab Results - Last 24 Hours (Table) 10/22/22 10/23/22 10/23/22 Range/Units 15:41 07:03 07:03 WBC 10.22 H (4.50-10.00) X 10*3/uL RBC 4.03 L (4.10-5.20) X 10*6/uL Hgb 11.4 L (12.0-15.0) g/dL Hct 36.5 L (37.2-46.3) % MCHC 31.2 L (32.0-37.0) g/dL Immature Gran # 0.06 H (0.00-0.04) X 10*3/uL BUN 8.2 L (9.0-27.0) mg/dL BUN/Creatinine Ratio 11.71 L (12.00-20.00) Ratio Glucose 154 H (70-110) mg/dL Urine Protein Trace H (Negative) Urine Ketones 2+ H (Negative) Urine Blood Trace H (Negative) Ur Leukocyte Esterase Moderate H (Negative) Urine WBC 9 H (0-5) /hpf Amorphous Sediment Rare H (None) /hpf Urine Mucus Occasional H (None) /hpf Microbiology - Last 24 Hours (Table) 10/23/22 01:23 Urine Culture - Preliminary Urine,Voided Assessment and Plan Assessment: * Difficulty with ambulation, likely due to medication side effect. Patient has not been taking her Cogentin, likely resulting in extrapyramidal side effects and difficulty with ambulation. * Tardive dyskinesia, likely due to long-term side effect of Haldol. * Diabetes * Hypertension * Osteoarthritis Plan: * Resume Cogentin 1 mg twice a day. Patient also on Haldol 2.5 mg at bedtime. Psychiatry on board. Patient's tardive dyskinesia including cervical dystonia much improved with resuming Cogentin. * B12 472, folate 32.10, both normal. * Patient has left hip flexion weakness. Patient's hip adduction, abduction and rest of the strength of the left leg is normal. No significant pain on exami nation of the hip. Patient's x-ray of the pelvis showed 4.8 cm calcified fibroid in the left pelvis. Uncertain if this fibroid is compressing the lumbar plexus. Consider CONTESTANT COORDINATOR consult. * PT OT evaluate gait. * Patient believes that she is back to baseline. * Neurologically clear, if cleared by PT and OT and psychiatry.
[2022-10-24 11:41] LABS: Glucose,Whole Blood 187 mg/dL (70-110)
[2022-10-24] MEDS ORDERED: INSULIN ASPART (NovoLOG) 100 UNIT/ML VIAL SQ SCH (12:30)
--- NOTE | 2022-10-25 00:56 | P.DS ---
Providers Date of admission: 10/21/22 23:45 Attending physician: Karey Donahue MD Consults: 10/22/22 09:42 Consult Physician Urgent Consulting Provider: Aurelia Goodman Consult Reason/Comments: left leg weakness Do you want consulting provider notified?: Yes 10/23/22 11:27 Consult Physician Routine Consulting Provider: Maykel Delgadillo Consult Reason/Comments: possible extrapyramidal side effect Do you want consulting provider notified?: Yes Primary care physician: Oracio Mojica Hospital Course: Diagnoses: Acute urinary tract infection Generalized leg weakness, suspected extrapyramidal side effects from psych medication Nausea vomiting suspicious for acute gastroenteritis, improving Low hemoglobin, recheck hemoglobin is normal, keep monitoring Diabetes mellitus Hypertension History of CVA/TIA History of dementia History of osteoarthritis History of bipolar and anxiety, not active tissue continue with IV fluids Hospital course: This is a pleasant 76 years old female with past medical history of CVA/TIA, Dementia, Diabetes Mellitus, Hypertension, Osteoarthritis, Pt states she is on an antibiotic for ear infection/throat infection at this time, TIA which affected speech, diet controlled diabetes, Anxiety, Bipolar, Depression Information were obtained from the patient and son Mr. Gonzalez at bedside. As per son, 10 PM last night and he was helping his mother getting out of the restroom when he notices that she was dragging her left leg and her speech was abnormal, so they came to the hospital. Also patient has some which is resolved also patient had some vomiting which is resolved. She has left leg weakness which is mild and with flexion only. Secondary to possible history of fibroid, neurologist evaluated the patient, and clear for discharge. Patient will recommend follow-up with bus trolley and taxi instructor as an outpatient and I talked to the son Mr. Joyner regarding this and he is agreeable. She has multiple UTI responded to antibiotic therapy. She will finish short course of oral antibiotics. Patient also evaluated by psychiatrist. Patient had some tardive dyskinesia which is improved with using of Cogentin. ID To the patient and son with the importance of adherence to therapy. Patient apparently that was refusing to take Cogentin 2 mg at bedtime, currently she is clinically doing well on 1 mg twice daily. Physical therapist recommended home health care versus subacute rehab, patient declines to go to rehab but agreeable to [facility] . Patient was cleared for discharge by all consultants occluded neurologist at psychiatrist Patient denies any other new symptoms. Problems and management plan were discussed with the patient and her son Ar over the phone and they verbalized understanding and acceptance Patient was found stable and can be discharged home in guarded prognosis however he needs follow-up as an outpatient. Patient was instructed to follow up with PCP Dr. Allen within one week and patient agrees Patient was instructed to follow up with bus trolley and taxi instructor Dr. hassan in one week at the neurologist dr. montez in one week and she agrees Physical exam Gen: patient is a AAOx3, no distress CVS: S1-S2, RRR, no murmur Lungs: B/L CTA, no wheezing Abdomen: soft, no distention, no tenderness, positive bowel sounds Extremity: no leg edema or induration Time spent more than 35 minutes Patient Condition at Discharge: Stable Plan - Discharge Summary New Discharge Prescriptions: New Artificial Tears-Hypromellose [Artificial Tear Drops] 1 drops BOTH EYES QID PRN #10 ml PRN Reason: Dry Eye(S) Cefuroxime [Ceftin] 250 mg PO BID 3 Days #6 tab Continue Metoprolol Tartrate [Lopressor] 50 mg PO BID Benztropine Mesylate [Cogentin] 1 mg PO BID #60 tab haloperidoL [Haldol] 2.5 mg PO HS Atorvastatin [Lipitor] 40 mg PO HS Discontinued Celecoxib [CeleBREX] 100 mg PO BID Discharge Medication List Atorvastatin [Lipitor] 40 mg PO HS 10/22/22 [History] Metoprolol Tartrate [Lopressor] 50 mg PO BID 10/22/22 [History] haloperidoL [Haldol] 2.5 mg PO HS 10/22/22 [History] Artificial Tears-Hypromellose [Artificial Tear Drops] 1 drops BOTH EYES QID PRN #10 ml 10/24/22 [Rx] Benztropine Mesylate [Cogentin] 1 mg PO BID #60 tab 10/24/22 [Rx] Cefuroxime [Ceftin] 250 mg PO BID 3 Days #6 tab 10/24/22 [Rx] Follow up Appointment(s)/Referral(s): Galina Narayanan MD [Primary Care Provider] - 1-2 days Weston Montez MD [REFERRING] - 1 Week Sol Larsen DO [Doctor of Osteopathic Medicine] - 1 Week (ob-claims customer service representative doctor for your uterine fibroid, possilbly pressing on nerve plexus) Activity/Diet/Wound Care/Special Instructions: Low carbohydrate diet Activity is restricted till you see your doctor [facility] Michael Dominique MD Specialty:Family Medicine [address] [place] [address] Carin Rodney NP Specialty:Family Medicine [address] [place] [address] Brenda Carpio NP Specialty:Family Medicine Nurse Practitioner [address] [place] [address] Jenn Rubio [facility] Specialty:Family Medicine [address] [place] [address] Devin Harman MD Specialty: Internal Medicine [address] [facility], [address] [place] [address] Bc Diana DO Specialty:Adult Undercover Cop [address] [address] Jefferson Chacko MD Specialty: Internal Medicine [address] [place] [address] Lotus Shaw Specialty:Family Medicine [address] [place] [address] James Roland MD Specialty:Family Medicine [address] [place] [address] Ritesh Slaughter MD Specialty: Internal Medicine [address] [place] [address] Nadya Mixon MD Specialty:Family Medicine [address] [place] [address] Raphael Sanchez DO Specialty:Family Medicine [address] [facility], [address] [place] [address] Serafin Mike MD, [facility] Specialty: Family Medicine [address] [place] [address] Laci Blank MD Specialty:Family Medicine [address] [facility], [address] [place] [address] Laci Diana DO Specialty: Family Medicine [address] [place] [address] Sj Butt MD Specialty:Family Medicine [address] [place] [address] Leo Modi MD Specialty: Internal Medicine [address] [place] [address] Mariela Powers DO Specialty:Family Medicine [address] [place] [address] Brigitte Adams [facility]- Specialty: Internal Medicine [address] [place] [address] Caron Wilkins MD Specialty: Internal Medicine, Pediatrics [address] [place] [address] Brien Humphrey MD Specialty:Family Medicine [address] [place] [address] Samir Scott MD FACP Specialty: Internal Medicine [address] [facility] [address] [place] [address] James Lewis DO Specialty: Family Medicine [address] [place] [address] Jerzy Danielle MD Specialty:Family Medicine [address] [facility], [place] [address] Janet Sultana MD Specialty: Internal Medicine 12[address] [facility], [address] [place] [address] Taylor Venegas WASH TEST CHECKER- Specialty:Nurse Practitioner [address] [place] [address] Shabnam Nicole NP Specialty:Family Medicine Nurse Practitioner [address] [place] [address] Sonja Florez PA-C Specialty:Family Medicine [address] [place] [address] Arnol Phelps DO Specialty:Family Medicine [address] [facility] [place] [address] Sj Zepeda MD Specialty: Internal Medicine [address] [place] [address] [facility] Provider Specialty: Family Medicine 116[address] [place] [address] Mari Cid MD Specialty: Internal Medicine [address] [place] [address] Ihsan Donahue [facility] Provider Specialty: Family Medicine [address] [place] [address] Daphney Thibodeaux NP Specialty: Family Medicine Nurse Practitioner [address] [place] [address] Mimi Mahmood MD Specialty: Family Medicine [address] [place] [address] Lolis Burns MD Specialty:Family Medicine [address] [place] [address] Vee Staton MD [facility] Provider Specialty:Family Medicine [facility] [place] [address] Aleja Lima [facility]- Specialty: Internal Medicine Nurse Practitioner [address] [place] [address] Jose Miguel Spence DO Specialty: Family Medicine [address] [place] [address] Conrad Staples DO Specialty:Family Medicine [address] [place] [address] Jenn Merchant DO Specialty: Family Medicine [address] [place] [address] Sj Clark MD Specialty:Family Medicine [address] [facility], [address] [place] [address] Maik Porter MD Specialty:Family Medicine [address] [place] [address] Phi Wasserman MD Specialty:Family Medicine [address] [place] [address] Rosales Suzy DO Specialty: Family Medicine [address] [place] [address] Gucci Obregon MD Specialty:Family Medicine [address] [place] [address] Tika Dodd DO Specialty:Family Medicine [address] [facility] [place] [address] Zeb Crooks MD Specialty:Family Medicine Sub-Specialty:Gerontology, Sports Medicine [address] [place] [address] Arelis Mota NP Specialty:Family Medicine [address] [facility] [place] [address] Checo Hargrove MD Specialty: Family Medicine [address] [place] [address] Raven Hargrove DO Specialty:Family Medicine Sub-Specialty:Vasectomies, Laser [address] [place] [address] Betzaida Ramos DO Specialty: Family Medicine [address] [address] Aleja Alvarez BABY COUNSELOR-C Specialty: Family Medicine [facility] [address] [place] [address] Ritesh Gama DO Specialty:Family Medicine Sub-Specialty:Pediatrics, Sports Medicine, Women's Medicine, Cryotherapy, Simple Surgeries, Synvisc Injections [address] [place] [address] Maykel Mijares DO Specialty:Family Medicine Sub-Specialty:Geriatrics [address] [place] [address] Romero Jacobs Specialty:Family Medicine [address] [place] [address] Aleja Lobo PA-C [address] [place] [address] Sergio Harris DO Specialty: Family Medicine [address] [place] [address] Jaya Fuller MD Specialty:Family Medicine Sub-Specialty:Wound Care, Family Care [address] [facility], [address] [place] [address] Hailey Hodge MD Specialty:Family Medicine [address] [place] [address] Emma Pierce MD Specialty:Family Medicine [address] [place] [address] [facility] [address] [facility], [address] [place] [address] Bc Gold DO [facility] Provider Specialty: Internal Medicine [address] [place] [address] Lianna Collado Specialty:Family Medicine [address] [place] [address] [place] [address] Discharge/Stand Alone Forms: Outpatient Counseling Discharge Disposition: HOME WITH HOME HEALTH SERVICES
== END 2022-10-24 13:40 | disposition home health service (06) ==
LOC: EC 21:04 → 6NMEDSUR 23:45
PROVIDERS: ADMIT Internal Medicine; ATTEND Internal Medicine
DX: R11.2 Nausea with vomiting, unspecified (principal); R71.0 Precipitous drop in hematocrit; E11.9 Type 2 diabetes mellitus without complications; I10 Essential (primary) hypertension; J02.9 Acute pharyngitis, unspecified; Z20.822 Contact with and (suspected) exposure to COVID-19; I69.328 Other speech and language deficits following cerebral infarction; F03.90 Unspecified dementia, unspecified severity, without behavioral disturbance, psychotic disturbance, mood disturbance, and anxiety; M19.90 Unspecified osteoarthritis, unspecified site; F31.9 Bipolar disorder, unspecified; F41.9 Anxiety disorder, unspecified; G24.01 Drug induced subacute dyskinesia; Z87.440 Personal history of urinary (tract) infections; Z98.890 Other specified postprocedural states; Z79.899 Other long term (current) drug therapy; Z88.2 Allergy status to sulfonamides; Z88.8 Allergy status to other drugs, medicaments and biological substances
CPT/HCPCS: 96376 ×2; 96361 ×3; 96365; 96366 ×2; 96372 ×2; 96375 ×2; 99285; 36415; 97110; 97162; 97166; 86900; 86901; 80053 ×2; 80048; 82607; 82728; 82746; 83540; 83550; 83690; 85025 ×3; 86850; 82272; 81001; 87086; 87502; 83036; 87635; 73502; 71046; 70450; G0378 ×3; J2405; J0696 ×3; J1644 ×2

== ENCOUNTER 2023-07-08 13:10 | Emergency (ER) | payer MEDICARE ==
--- NOTE | 2023-07-08 13:22 | ED ---
General Adult HPI - General Chief complaint: Neuro Symptoms/Deficit Stated complaint: Stroke Time Seen by Provider: 07/08/23 13:16 Source: patient Mode of arrival: EMS Limitations: no limitations, language barrier - History of Present Illness Initial comments: Dictation was produced using [employer] dictation software. please excuse any grammatical, word or spelling errors. Chief Complaint: 77-year-old female presents emergency Department with strokelike symptoms History of Present Illness: 37-year-old female she has past medical history of stroke, dementia and diabetes. She takes anticoagulation medications. Patient was noted to have symptoms at around 11 AM at the care home. EMS states that her scalp staff did not have much information about patient's usual baseline.. She is being fed by family when all of a sudden started to show signs of stroke. Patient is not a good historian. EMS reports normal blood glucose The ROS documented in this emergency department record has been reviewed and confirmed by me. Those systems with pertinent positive or negative responses have been documented in the HPI. All other systems are other negative and/or noncontributory. - Related Data Home Medications Medication Instructions Recorded Confirmed Atorvastatin [Lipitor] 40 mg PO HS 10/22/22 11/07/22 Metoprolol Tartrate [Lopressor] 50 mg PO BID 10/22/22 11/07/22 haloperidoL [Haldol] 2.5 mg PO HS 10/22/22 11/07/22 Artificial Tears-Hypromellose 1 drop BOTH EYES QID PRN 11/07/22 11/07/22 [Artificial Tear Drops] Previous Rx's Medication Instructions Recorded Benztropine Mesylate [Cogentin] 1 mg PO BID #60 tab 10/24/22 Apixaban [Eliquis Starter Pack 5 - 10 mg PO DIRECTED 30 Days 11/07/22 (for VTE)] #1 each Acetaminophen Tab [Tylenol] 650 mg PO Q6HR PRN tab 11/08/22 Gmcedvsw-Wplrvxkrus-Enqg Oint 1 applic TOPICAL TID 30 Days #1 11/08/22 [Triple Antibiotic Ointment] each Nystatin 100,000 Unit/gm Powd 1 applic TOPICAL TID 30 Days #1 11/08/22 [Mycostatin Powder] each Glimepiride [Amaryl] 2 mg PO AC-BRKFST 30 Days #30 11/09/22 tablet Allergies Allergy/AdvReac Type Severity Reaction Status Date / Time metformin Allergy Unknown Verified 11/06/22 10:45 Sulfa (Sulfonamide Allergy Unknown Verified 11/06/22 10:45 Antibiotics) Review of Systems ROS Statement: Those systems with pertinent positive or pertinent negative responses have been documented in the HPI. ROS Other: All systems not noted in ROS Statement are negative. Past Medical History Past Medical History: CVA/TIA, Dementia, Diabetes Mellitus, Hypertension, Osteoarthritis (OA) Additional Past Medical History / Comment(s): Pt states she is on an antibiotic for ear infection/throat infection at this time, TIA which affected speech, pt denies HTN but it is documented in past medical hx, diet controlled diabetes History of Any Multi-Drug Resistant Organisms: None Reported Past Surgical History: Orthopedic Surgery Additional Past Surgical History / Comment(s): I&D tooth abscess, left trigger finger surgery Past Anesthesia/Blood Transfusion Reactions: No Reported Reaction Past Psychological History: Anxiety, Bipolar, Depression Smoking Status: Never smoker Past Alcohol Use History: None Reported Past Drug Use History: None Reported - Past Family History Father Family Medical History: No Reported History Mother Family Medical History: No Reported History General Exam - General Exam Comments Initial Comments: PHYSICAL EXAM: General Impression: Alert and oriented x3, not in acute distress HEENT: Normocephalic atraumatic, extra-ocular movements intact, pupils equal and reactive to light bilaterally, mucous membranes moist. Cardiovascular: Heart regular rate and rhythm Chest: Able to complete full sentences, no retractions, no tachypnea Abdomen: abdomen soft, non-tender, non-distended, no organomegaly Musculoskeletal: Pulses present and equal in all extremities, no peripheral edema Motor: no focal deficits noted Neurological: Right-sided facial droop, poor effort with no movement of the bilateral lower extremities, no drift to the upper extremities, mildly dysarthric and mildly aphasic Skin: Intact with no visualized rashes Psych: Normal affect and mood Limitations: no limitations, language barrier Course Vital Signs 07/08/23 07/08/23 07/08/23 13:16 13:17 13:20 Temperature 97.8 F 97.7 F Pulse Rate 86 86 Respiratory 16 16 Rate Blood Pressure 107/86 129/68 O2 Sat by Pulse 99 998 H Oximetry 07/08/23 14:02 Temperature Pulse Rate 85 Respiratory 20 Rate Blood Pressure 126/62 O2 Sat by Pulse 100 Oximetry - Reevaluation(s) Reevaluation #1: 07/08/23 13:22 Patient seen immediately upon arriving to the emergency department in the hallway. Patient has NIH score of approximately 8. She is not a candidate for alteplase secondary to anticoagulation use 07/08/23 14:13 Stroke network did call back approximately 56 minutes after patient's arrival. Code stroke was activated prior to patient's arrival. Spoke with Christie on behalf of Dr. Lopez, the stroke neurologist. They recommend patient not be given alteplase due to history of anticoagulation use. He also reported the patient static candidate for thrombectomy secondary to risk of doing the benefits. Recommendation for medical management. CT imaging studies were reviewed by myself. CT imaging of the brain and CT angiography interpreted by me shows no large vessel occlusion and no intracranial bleed. Reevaluation #2: 07/08/23 14:50 More history was obtained from family. They report that patient has not been able to walk since yesterday. She was just discharged from [facility] for sepsis secondary to discitis in the lumbar spine. She apparently is on antibiotics. Thumb is worried about patient's inability to use her legs. She was walking allegedly 2 days ago. Family reports that the plan at [place] was 2 patient in rehab to have her discitis treated with plans for future back surgery. Family is not aware of what anabiotic patients taking. EKG Findings - EKG Comments: EKG Findings:: My EKG interpretation: Ventricular rate 97, sinus rhythm,. Interval 147, QRS 80, QTC 4:15. Interpretation limited due to significant artifact. No RI prolongation, no QTC prolongation, no ST or T-wave changes not ed. EKG compared to that her 04/18/2023 showing no changes. Overall, this EKG is unremarkable Medical Decision Making - Medical Decision Making Was pt. sent in by a medical professional or institution (, PA, SPECIAL EVENTS PLANNER, urgent care, hospital, or care home...) When possible be specific @ -No Did you speak to anyone other than the patient for history (EMS, parent, family, police, friend...)? What history was obtained from this source @ -see above Did you review nursing and triage notes (agree or disagree)? Why? @ -I reviewed and agree with nursing and triage notes Were old charts reviewed (outside hosp., previous admission, EMS record, old EKG, old radiological studies, urgent care reports/EKG's, care home records)? Report findings @ -No old charts were reviewed Differential Diagnosis (chest pain, altered mental status, abdominal pain women, abdominal pain men, vaginal bleeding, musculoskeletal, weakness, fever, dyspnea, syncope, headache, dizziness, GI bleed, back pain, seizure, CVA, palpatations, mental health)? @ - Differential CVA: Ischemic stroke, hemorrhagic stroke, brain tumor, atypical migraine, Wernicke's encephalopathy, seizure, multiple sclerosis, meningitis, encephalitis, hypoglycemia, Guillain-Ramos, electrolytes disturbance, myasthenia gravis.... This is not meant to be an all-inclusive list EKG interpreted by me (3pts min.). @ -As above X-rays interpreted by me (1pt min.). @ -Chest x-ray shows no acute abnormalities CT interpreted by me (1pt min.). @ -Angiography of the brain and CT brain without contrast shows no large vessel occlusion or intracranial bleeding U/S interpreted by me (1pt. min.). @ -None done What testing was considered but not performed or refused? (CT, X-rays, U/S, labs)? Why? @ -None What meds were considered but not given or refused? Why? @ -None Did you discuss the management of the patient with other professionals (professionals i.e. Dr., PA, SPECIAL EVENTS PLANNER, lab, RT, psych nurse, social science teacher, records manager, teacher, radiation safety officer, rehabilitation case coordinator)? Give summary @ -Case discussed with [facility] ER physician Dr. Mcguire for ER to ER transfer Was smoking cessation discussed for >3mins.? @ -No Was critical care preformed (if so, how long)? @ -yes 30 minutes Were there social determinants of health that impacted care today? How? (Homelessness, low income, unemployed, alcoholism, drug addiction, transportation, low edu. Level, literacy, decrease access to med. care, snf, rehab)? @ -No Was there de-escalation of care discussed even if they declined (Discuss DNR or withdrawal of care, Hospice)? DNR status @ -No What co-morbidities impacted this encounter? (DM, HTN, Smoking, COPD, CAD, Cancer, CVA, ARF, Chemo, Hep., AIDS, mental health diagnosis, sleep apnea, morbid obesity)? @ -None Was patient admitted / discharged? Hospital course, mention meds given and route, prescriptions, significant lab abnormalities, going to OR and other pertinent info. @ -Year-old female presents to the emergency Department from care home for strokelike symptoms. Vital signs upon arrival are within acceptable limits. Patient given an initial NIH score of approximately 8. I can defer alteplase due to anticoagulation use. Code stroke was paged. Case discussed with stroke neurologist. Patient has a negative CT angiography for any large vessel occlusion. Labs shows leukocytosis 22.1 with thrombocytosis. Coag panel is unremarkable. Metabolic panel shows no significant abnormalities. History was obtained from family who was at the bedside states that she was just discharged from [facility] for sepsis secondary to discitis. There worried about patient's lower extremities appear to be relatively flaccid. There is concern that patient's having extension of an infection from discitis to her spinal cord. We are unable to perform stat MRI. Furthermore I believe patient would benefit from transfer back to [facility] for continuity of care. Patient given broad-spectrum antibiotics Undiagnosed new problem with uncertain prognosis? @ -No Drug Therapy requiring intensive monitoring for toxicity (Heparin, Nitro, Insulin, Cardizem)? @ -No Were any procedures done? @ -No Diagnosis/symptom? Acute, or Chronic, or Acute on Chronic? Uncomplicated (w ithout systemic symptoms) or Complicated (systemic symptoms)? @ -1. CVA, 2. Bilateral lower extremity paralysis, history of sepsis and recent dx of discitis Side effects of treatment? @ -No Exacerbation, Progression, or Severe Exacerbation? @ -No Poses a threat to life or bodily function? How? (Chest pain, USA, ID, pneumonia, PE, COPD, DKA, ARF, appy, cholecystitis, CVA, Diverticulitis, Homicidal, Suicidal, threat to staff... and all critical care pts) @ -yes - Lab Data Result diagrams: 07/08/23 13:16 07/08/23 13:16 Lab Results 07/08/23 07/08/23 07/08/23 Range/Units 13:16 13:16 13:16 WBC 22.1 H (3.8-10.6) k/uL RBC 2.55 L (3.80-5.40) m/uL Hgb 7.5 L (11.4-16.0) gm/dL Hct 24.1 L (34.0-46.0) % MCV 94.5 (80.0-100.0) fL MCH 29.2 (25.0-35.0) pg MCHC 30.9 L (31.0-37.0) g/dL RDW 15.2 (11.5-15.5) % Plt Count 483 H (150-450) k/uL MPV 8.7 Neutrophils % 93 % Lymphocytes % 3 % Monocytes % 2 % Eosinophils % 1 % Basophils % 0 % Neutrophils # 20.4 H (1.3-7.7) k/uL Lymphocytes # 0.7 L (1.0-4.8) k/uL Monocytes # 0.5 (0-1.0) k/uL Eosinophils # 0.2 (0-0.7) k/uL Basophils # 0.1 (0-0.2) k/uL Hypochromasia Marked PT 14.4 H (9.0-12.0) sec INR 1.4 H (<1.2) APTT 29.0 (22.0-30.0) sec Sodium 132 L (137-145) mmol/L Potassium 4.5 (3.5-5.1) mmol/L Chloride 100 (98-107) mmol/L Carbon Dioxide 20 L (22-30) mmol/L Anion Gap 12 mmol/L BUN 20 H (7-17) mg/dL Creatinine 0.72 (0.52-1.04) mg/dL Est GFR (CKD-EPI)AfAm >90 (>60 ml/min/1.73 sqM) Est GFR (CKD-EPI)NonAf 82 (>60 ml/min/1.73 sqM) Glucose 253 H (74-99) mg/dL Calcium 8.9 (8.4-10.2) mg/dL Total Bilirubin 0.3 (0.2-1.3) mg/dL AST 27 (14-36) U/L ALT 36 H (4-34) U/L Alkaline Phosphatase 137 H (38-126) U/L Creatine Kinase 129 (30-135) U/L Troponin I (0.000-0.034) ng/mL Total Protein 7.6 (6.3-8.2) g/dL Albumin 2.6 L (3.5-5.0) g/dL 07/08/23 Range/Units 13:16 WBC (3.8-10.6) k/uL RBC (3.80-5.40) m/uL Hgb (11.4-16.0) gm/dL Hct (34.0-46.0) % MCV (80.0-100.0) fL MCH (25.0-35.0) pg MCHC (31.0-37.0) g/dL RDW (11.5-15.5) % Plt Count (150-450) k/uL MPV Neutrophils % % Lymphocytes % % Monocytes % % Eosinophils % % Basophils % % Neutrophils # (1.3-7.7) k/uL Lymphocytes # (1.0-4.8) k/uL Monocytes # (0-1.0) k/uL Eosinophils # (0-0.7) k/uL Basophils # (0-0.2) k/uL Hypochromasia PT (9.0-12.0) sec INR (<1.2) APTT (22.0-30.0) sec Sodium (137-145) mmol/L Potassium (3.5-5.1) mmol/L Chloride (98-107) mmol/L Carbon Dioxide (22-30) mmol/L Anion Gap mmol/L BUN (7-17) mg/dL Creatinine (0.52-1.04) mg/dL Est GFR (CKD-EPI)AfAm (>60 ml/min/1.73 sqM) Est GFR (CKD-EPI)NonAf (>60 ml/min/1.73 sqM) Glucose (74-99) mg/dL Calcium (8.4-10.2) mg/dL Total Bilirubin (0.2-1.3) mg/dL AST (14-36) U/L ALT (4-34) U/L Alkaline Phosphatase (38-126) U/L Creatine Kinase (30-135) U/L Troponin I <0.012 (0.000-0.034) ng/mL Total Protein (6.3-8.2) g/dL Albumin (3.5-5.0) g/dL Disposition Clinical Impression: Paralysis, SIRS (systemic inflammatory response syndrome), CVA (cerebral vascular accident) Disposition: OTHER INSTITUTION NOT DEFINED Condition: Serious Referrals: Maykel Mijares DO [Primary Care Provider] - 1-2 days Time of Disposition: 15:03 - Out of Hospital Transfer - Req. Specs Out of Hospital Transfer - Requested Specifics: Other Emergency Center ([facility])
[2023-07-08 13:23] VITALS: TEMP 97.7
--- NOTE | 2023-07-08 13:32 | CT ---
EXAMINATION TYPE: CT brain wo con CT DLP: 1104.6 mGycm, Automated exposure control for dose reduction was used. DATE OF EXAM: 07/08/2023 1:26 PM COMPARISON: CT brain C-spine 11/06/2022, CT brain 10/22/2022 CLINICAL INDICATION:Female, 77 years old with history of Neuro deficit, acute, stroke suspected, neur o deficit, CODE STROKE. ams TECHNIQUE: Brain: Multiple axial CT images of the brain were obtained without IV contrast. Coronal and sagittal reformats reviewed. FINDINGS: Brain: Extra-axial spaces: No abnormal extra-axial fluid collections. Ventricular system: Within normal limits Cerebral parenchyma: No acute intraparenchymal hemorrhage or mass effect. The abbott-white junction is well differentiated. Scattered hypoattenuating areas are seen within the white matter. Cerebellum: Unremarkable. Mass effect: No evidence of midline shift. Intracranial vasculature: Atherosclerotic calcifications of the intracranial vessels. Soft tissues: Normal. Calvarium/osseous structures: No depressed skull fracture. Paranasal sinuses and mastoid air cells: Partial opacification of the right mastoid air cells. The le ft mastoid air cells are clear. The visualized paranasal sinuses are clear. Visualized orbits: Orbital contents are intact. IMPRESSION: 1. No acute intracranial process. 2. Nonspecific white matter changes, likely secondary to chronic small vessel ischemic disease. 3. Partial opacification of the right mastoid air cells. Correlate for mastoiditis.
--- NOTE | 2023-07-08 14:09 | CT ---
EXAMINATION TYPE: CT angio head neck CT DLP: 436.4 mGycm, Automated exposure control for dose reduction was used. DATE OF EXAM: 07/08/2023 1:43 PM COMPARISON: CT brain 07/08/2023. CLINICAL INDICATION:Female, 77 years old with history of Neuro deficit, acute, stroke suspected; PHH, neuro deficit, CODE STROKE. ams. rt side facial droop TECHNIQUE: Axially acquired helical CT angiogram of the head and neck was obtained with contrast util izing 65 cc of Isovue-370 administered intravenously. Axial images are supplemented with 3D reconstru ctions which were post-processed at an independent workstation. NASCET criteria used. FINDINGS: CTA HEAD: No evidence of acute intracranial hemorrhage, mass effect, or midline shift. The ventricles, sulci, a nd cisterns are unremarkable. The visualized portions of the internal carotid arteries, middle cerebral arteries, anterior cerebral arteries, and posterior cerebral arteries are patent. The basilar and vertebral arteries are patent. CTA NECK: Right Carotid System: The common carotid artery and external carotid artery are patent. Mild atherosclerotic plaque at the carotid bifurcation without significant stenosis. Medial deviation of the right internal carotid lida ry. Moderate calcified stenosis of the cavernous portion of the internal carotid artery. Left Carotid System: The common carotid artery and external carotid artery are patent. The carotid bifurcation demonstrate s no evidence of hemodynamically significant stenosis. Medial deviation of the left internal carotid artery. Moderate calcified stenosis of the cavernous portion of the internal carotid artery. Vertebral arteries are patent without evidence hemodynamically significant stenosis. Hypoplastic appe arance of the intracranial portion of the left vertebral artery. Right vertebral artery is dominant. There is a three-vessel aortic arch. The origins of the great vessels are patent. No evidence of hemo dynamically significant stenosis. Partial visualization of right PICC line. IMPRESSION: 1. No evidence of dissection of the cervical internal carotid arteries or any evidence of significant stenosis at the carotid bifurcations. Hypoplastic appearance of the intracranial portion of the left vertebral artery. 2. No evidence of high-grade stenosis or intracranial aneurysm.
[2023-07-08 14:16] LABS: Basophils # (A) 0.1 k/uL (0-0.2); Basophils % (A) 0 %; Eosinophils # (A) 0.2 k/uL (0-0.7); Eosinophils % (A) 1 %; HCT 24.1 % (34.0-46.0); HGB 7.5 gm/dL (11.4-16.0); Hypochromasia Marked; Lymphocytes # (A) 0.7 k/uL (1.0-4.8); Lymphocytes % (A) 3 %; MCH 29.2 pg (25.0-35.0); MCHC 30.9 g/dL (31.0-37.0); MCV 94.5 fL (80.0-100.0); Mean Platelet Volume 8.7; Monocytes # (A) 0.5 k/uL (0-1.0); Monocytes % (A) 2 %; Neutrophils # (A) 20.4 k/uL (1.3-7.7); Neutrophils % (A) 93 %; Platelet Count 483 k/uL (150-450); RBC 2.55 m/uL (3.80-5.40); RDW 15.2 % (11.5-15.5); WBC 22.1 k/uL (3.8-10.6)
[2023-07-08 14:18] LABS: AST 27 U/L (14-36); African American GFR (CKD) >90 (>60 ml/min/1.73 sqM); Albumin 2.6 g/dL (3.5-5.0); Alkaline Phosphatase 137 U/L (38-126); Anion Gap 12 mmol/L; Blood Urea Nitrogen 20 mg/dL (7-17); Calcium 8.9 mg/dL (8.4-10.2); Carbon Dioxide 20 mmol/L (22-30); Chloride 100 mmol/L (98-107); Creatine Kinase 129 U/L (30-135); Glucose 253 mg/dL (74-99); Non-African American GFR(CKD) 82 (>60 ml/min/1.73 sqM); Potassium 4.5 mmol/L (3.5-5.1); Sodium 132 mmol/L (137-145); Total Bilirubin 0.3 mg/dL (0.2-1.3); Total Protein 7.6 g/dL (6.3-8.2)
[2023-07-08 14:20] LABS: INR 1.4 (<1.2); Prothrombin Time 14.4 sec (9.0-12.0)
--- NOTE | 2023-07-08 14:28 | XR ---
EXAMINATION TYPE: XR chest 2V DATE OF EXAM: 07/08/2023 2:25 PM COMPARISON: Chest radiographs from 11/06/2022 TECHNIQUE: XR chest 2V Frontal and lateral views of the chest. CLINICAL INDICATION:Female, 77 years old with history of altered mental status; FINDINGS: Lungs/Pleura: No evidence of focal consolidation or pneumothorax. Blunting of the costophrenic angles is present. Chronic senescent parenchymal change. Pulmonary vascularity: Unremarkable. Heart/mediastinum: Cardiomediastinal silhouette is enlarged and stable. Atherosclerotic calcificatio ns are seen in the aorta. Musculoskeletal: No acute osseous pathology. Right PICC line identified with distal tip terminating in the high SVC. IMPRESSION: Cardiomegaly with trace bilateral pleural effusions. No overt pulmonary vascular congestion.
[2023-07-08 14:32] LABS: ALT 36 U/L (4-34)
[2023-07-08] MEDS ORDERED: ASPIRIN 81 MG PO STA (14:35)
[2023-07-08] MEDS ORDERED: NALOXONE 0.4 MG/ML 1 ML VIAL IV PRN (14:37)
[2023-07-08] MEDS ORDERED: SODIUM CHLORIDE 0.9% 1,000 ML IV SCH (14:45)
[2023-07-08] MEDS ORDERED: VANCOMYCIN IV PER PHARMACY 1 EACH MISC MISCELLANE PRN (14:51)
[2023-07-08] MEDS ORDERED: PIPERACILLIN-TAZOBACTAM 3.375 GM in SODIUM CHLORIDE 0.9% 100 ML IVPB SCH (16:00)
[2023-07-08] MEDS ORDERED: VANCOMYCIN 1,500 MG in SODIUM CHLORIDE 0.9% 500 ML 500 ML IVPB ONE (16:00)
[2023-07-08 16:19] VITALS: RESP 16
[2023-07-08 17:02] VITALS: BP 110/60; PULSE 86
[2023-07-09] MEDS ORDERED: VANCOMYCIN 1,500 MG in SODIUM CHLORIDE 0.9% 500 ML 500 ML IVPB SCH (06:00)
== END 2023-07-08 17:02 | disposition other institution (70) ==
LOC: EC 13:10
DX: G83.9 Paralytic syndrome, unspecified (principal); I63.9 Cerebral infarction, unspecified; R65.10 Systemic inflammatory response syndrome (SIRS) of non-infectious origin without acute organ dysfunction; E11.9 Type 2 diabetes mellitus without complications; M19.90 Unspecified osteoarthritis, unspecified site; I10 Essential (primary) hypertension; F41.9 Anxiety disorder, unspecified; F31.9 Bipolar disorder, unspecified; Z88.2 Allergy status to sulfonamides; Z88.8 Allergy status to other drugs, medicaments and biological substances; Z79.899 Other long term (current) drug therapy
CPT/HCPCS: 36415; 93005; 80053; 82550; 84484; 85025; 85610; 85730; 71046; 70496; 70450; 70498; 99291; 96365; J2543; Q9967

== ENCOUNTER 2023-07-29 15:03 | Inpatient (IN) | payer MEDICARE, OTHER ==
[2023-07-29] MEDS ORDERED: SODIUM CHLORIDE 0.9% 1,000 ML IV STA (17:47)
[2023-07-29] MEDS ORDERED: VANCOMYCIN IV PER PHARMACY 1 EACH MISC MISCELLANE PRN (17:49)
[2023-07-29] MEDS ORDERED: PIPERACILLIN-TAZOBACTAM 3.375 GM in SODIUM CHLORIDE 0.9% 100 ML IVPB STA (17:49)
--- NOTE | 2023-07-29 17:51 | ED ---
Recheck HPI - General Chief Complaint: Wound/Laceration Stated Complaint: Sacral Wound Time Seen by Provider: 07/29/23 16:24 Source: EMS, RN notes reviewed, old records reviewed Mode of arrival: EMS Limitations: physical limitation - History of Present Illness Initial Comments: This is a 77 show female to the emergency department for evaluation. Patient presents today for evaluation of multiple chronic conditions but main issue is sacral decubitus ulcer performed prehospital evaluation. Patient was sent in for metal lodged for evaluation of wound antibiotics and to primary, surgical evaluation and wound care. Patient's complex history includes CVA with recent transfer to [facility] where she was also found to have significant discitis, osteomyelitis patient does have significant sacral wound currently, and has had this wound for some time now. Patient does have [place] catheter placed, and presents today for evaluation will care. Patient herself has no complaints MD Complaint: wound re-check -: days(s) Returns Today for: wound recheck, needs IV antibiotics, persistent/worsening pain related to initial visit Symptoms Since Prior Visit: no new symptoms Context: planned re-check Associated Symptoms: none Treatments Prior to Arrival: dressings, Given Pain Meds on - Related Data Home Medications Medication Instructions Recorded Confirmed 0.9 % Sodium Chloride [Sodium 10 ml IV Q6H 07/29/23 07/29/23 Chloride Flush] Ampicillin-Sulbactam [Unasyn 3 gm 3 gm IVPB Q6HR 07/29/23 07/29/23 vial] Apixaban [Eliquis] 5 mg PO BID 07/29/23 07/29/23 Ascorbic Acid [Vitamin C] 250 mg PO DAILY 07/29/23 07/29/23 Benztropine Mesylate [Cogentin] 2 mg PO BID 07/29/23 07/29/23 Cholecalciferol [Vitamin D3 (25 50 mcg PO DAILY 07/29/23 07/29/23 Mcg = 1000 Iu)] Famotidine [Pepcid] 20 mg PO DAILY 07/29/23 07/29/23 Ferrous Sulfate [Iron] 325 mg PO DAILY 07/29/23 07/29/23 Gabapentin [Neurontin] 100 mg PO BID 07/29/23 07/29/23 HYDROcodone/APAP 5-325MG [[place] 1 tab PO Q4HR PRN 07/29/23 07/29/23 5-325] Insulin Lispro [humaLOG Kwikpen] See Protocol SQ ACHS 07/29/23 07/29/23 Lactulose 20 gm PO DAILY 07/29/23 07/29/23 Magnesium Hydroxide [Milk of 2,400 mg PO Q72H PRN 07/29/23 07/29/23 Magnesia] Metoprolol Tartrate [Lopressor] 25 mg PO BID 07/29/23 07/29/23 Multivitamins, Thera [Multivitamin 1 tab PO DAILY 07/29/23 07/29/23 (formulary)] Sennosides/Docusate Sodium [Senna 1 tab PO BID 07/29/23 07/29/23 Plus 8.6-50 mg Tablet] droNABinol [Marinol] 2.5 mg PO BID 07/29/23 07/29/23 haloperidoL [Haldol] 2.5 mg PO HS 07/29/23 07/29/23 polyethylene glycoL 3350 [Miralax] 17 gm PO BID 07/29/23 07/29/23 sitaGLIPtin [Januvia] 50 mg PO DAILY 07/29/23 07/29/23 Allergies Allergy/AdvReac Type Severity Reaction Status Date / Time metformin Allergy Unknown Verified 07/29/23 18:14 Sulfa (Sulfonamide Allergy Unknown Verified 07/29/23 18:14 Antibiotics) Review of Systems ROS Statement: Those systems with pertinent positive or pertinent negative responses have been documented in the HPI. ROS Other: All systems not noted in ROS Statement are negative. Past Medical History Past Medical History: CVA/TIA, Dementia, Diabetes Mellitus, Hypertension, Osteoarthritis (OA) Additional Past Medical History / Comment(s): Pt states she is on an antibiotic for ear infection/throat infection at this time, TIA which affected speech, pt denies HTN but it is documented in past medical hx, diet controlled diabetes History of Any Multi-Drug Resistant Organisms: None Reported Past Surgical History: Orthopedic Surgery Additional Past Surgical History / Comment(s): I&D tooth abscess, left trigger finger surgery Past Anesthesia/Blood Transfusion Reactions: No Reported Reaction Past Psychological History: Anxiety, Bipolar, Depression Smoking Status: Never smoker Past Alcohol Use History: None Reported Past Drug Use History: None Reported - Past Family History Father Family Medical History: No Reported History Mother Family Medical History: No Reported History General Exam - General Exam Comments Initial Comments: Significant sacral wound with multiple stages of healing Limitations: physical limitation General appearance: alert, in no apparent distress Head exam: Present: atraumatic, normocephalic, normal inspection Eye exam: Present: normal appearance, PERRL, EOMI. Absent: scleral icterus, conjunctival injection, periorbital swelling ENT exam: Present: normal exam, mucous membranes moist Neck exam: Present: normal inspection. Absent: tenderness, meningismus, lymphadenopathy Respiratory exam: Present: normal lung sounds bilaterally. Absent: respiratory distress, wheezes, rales, rhonchi, stridor Cardiovascular Exam: Present: regular rate, normal rhythm, normal heart sounds. Absent: systolic murmur, diastolic murmur, rubs, gallop, clicks GI/Abdominal exam: Present: soft, normal bowel sounds. Absent: distended, tenderness, guarding, rebound, rigid Extremities exam: Present: normal inspection, full ROM, normal capillary refill. Absent: tenderness, pedal edema, joint swelling, calf tenderness Back exam: Present: normal inspection Neurological exam: Present: alert, oriented X3, CN II-XII intact Psychiatric exam: Present: normal affect, normal mood Skin exam: Present: warm, dry, intact, normal color. Absent: rash Course Vital Signs 07/29/23 07/29/23 07/29/23 15:12 19:55 21:00 Temperature 98.2 F 98.3 F Pulse Rate 97 117 H 114 H Respiratory 16 22 20 Rate Blood Pressure 174/81 156/74 134/66 O2 Sat by Pulse 98 100 100 Oximetry 07/30/23 07/30/23 07/30/23 08:00 09:00 10:00 Temperature 98.4 F Pulse Rate 120 H 111 H 60 Respiratory 20 20 20 Rate Blood Pressure 140/68 151/86 144/79 O2 Sat by Pulse 95 99 98 Oximetry 07/30/23 07/30/23 07/30/23 11:00 13:00 15:00 Temperature 98.9 F Pulse Rate 100 105 H 114 H Respiratory 20 20 20 Rate Blood Pressure 150/86 154/80 138/70 O2 Sat by Pulse 98 98 98 Oximetry 07/30/23 17:00 Temperature 99.5 F Pulse Rate 110 H Respiratory 20 Rate Blood Pressure 135/86 O2 Sat by Pulse 98 Oximetry - Reevaluation(s) Reevaluation #1: 07/29/23 18:29 Medical record is reviewed Reevaluation #2: 07/29/23 18:29 Patient symptoms are unchanged Reevaluation #3: 07/29/23 18:29 Patient informed results questions answered Family at length regarding patient's initial, multiple family members at beds cecilia. Patient states Dr. Mijares this did send patient in from [facility] for evaluation by wound care regarding also Reevaluation #4: 07/29/23 18:29 Was pt. sent in by a medical professional or institution (, JF, OIL WELL D[employer]LLER, urgent care, hospital, or skilled nursing...) When possible be specific @ -no Did you speak to anyone other than the patient for history (EMS, parent, family, police, friend...)? What history was obtained from this source @ -no Did you review nursing and triage notes (agree or disagree)? Why? @ -agree Are old charts reviewed (outside hosp., previous admission, EMS record, old EKG, old radiological studies, urgent care reports/EKG's, skilled nursing records)? Report findings @ -yes Differential Diagnosis (chest pain, altered mental status, abdominal pain women, abdominal pain men, vaginal bleeding, weakness, fever, dyspnea, syncope, headache, dizziness, GI bleed, back pain, seizure, CVA, palpatations, mental health, musculoskeletal)? @ -prior EKG interpreted by me (3pts min.). @ -yes X-rays interpreted by me (1pt min.). @ -no CT interpreted by me (1pt min.). @ -no U/S interpreted by me (1pt. min.). @ -no What testing was considered but not performed or refused? (CT, X-rays, U/S, labs)? Why? @ -none What meds were considered but not given or refused? Why? @ -none Did you discuss the management of the patient with other professionals (professionals i.e. , JF, [employer], lab, RT, psych nurse, social psychologist, screwdown operator, teacher, consular officer, upper caser)? Give summary @ -no Was smoking cessation discussed for >3mins.? @ -no Was critical care preformed (if so, how long)? @ -no Were there social determinants of health that impacted care today? How? (Homelessness, low income, unemployed, alcoholism, drug addiction, transportat ion, low edu. Level, literacy, decrease access to med. care, care home, rehab)? @ -none Was there de-escalation of care discussed even if they declined (Discuss DNR or withdrawal of care, Hospice)? DNR status @ -no What co-morbidities impacted this encounter? (DM, HTN, Smoking, COPD, CAD, Cancer, CVA, ARF, Chemo, Hep., AIDS, mental health diagnosis, sleep apnea, morbid obesity)? @ -none Was patient admitted / discharged? Hospital course, mention meds given and route, prescriptions, significant lab abnormalities, going to OR and other pertinent info. @ - 77 female will be admitted for IV antibiotics and wound care, sacral decubitus ulcer worsening despite wound snf. Patient will be admitted for acute wound care and antibiotics Minute Undiagnosed new problem with uncertain prognosis? @ -no Drug Therapy requiring intensive monitoring for toxicity (Heparin, Nitro, Insulin, Cardizem)? @ -no Were any procedures done? @ -no Diagnosis/symptom? @ -Decubitus ulcer with infection Acute, or Chronic, or Acute on Chronic? @ -Acute Uncomplicated (without systemic symptoms) or Complicated (systemic symptoms)? @ -Complicated Side effects of treatment? @ -no Exacerbation, Progression, or Severe Exacerbation? @ -exacerbation Poses a threat to life or bodily function? How? (Chest pain, USA, GA, pneumonia, PE, COPD, DKA, ARF, appy, cholecystitis, CVA, Diverticulitis, Homicidal, Suicid al, threat to staff... and all critical care pts) @ -yes with severe debilitated comorbidities Reevaluation #5: 07/29/23 18:30 Differential Weakness: Hypoglycemia, shock, sepsis, hyponatremia, anemia, infection, GA, ETOH, adverse medicine reaction, overdose, stroke, this is not meant to be an all-inclusive list. Medical Decision Making - Medical Decision Making 77 female will be admitted for IV antibiotics and wound care, sacral decubitus ulcer worsening despite wound snf. Patient will be admitted for acute wound care and antibiotics - Lab Data Result diagrams: 08/05/23 05:53 08/05/23 05:53 Lab Results 07/29/23 07/29/23 07/29/23 Range/Units 17:58 17:58 17:58 WBC 10.6 (3.8-10.6) k/uL RBC 2.75 L (3.80-5.40) m/uL Hgb 8.2 L (11.4-16.0) gm/dL Hct 26.2 L (34.0-46.0) % MCV 95.3 (80.0-100.0) fL MCH 29.8 (25.0-35.0) pg MCHC 31.2 (31.0-37.0) g/dL RDW 16.5 H (11.5-15.5) % Plt Count 481 H (150-450) k/uL MPV 7.0 Neutrophils % 45 % Lymphocytes % 41 % Monocytes % 5 % Eosinophils % 6 % Basophils % 1 % Neutrophils # 4.8 (1.3-7.7) k/uL Lymphocytes # 4.4 (1.0-4.8) k/uL Monocytes # 0.5 (0-1.0) k/uL Eosinophils # 0.6 (0-0.7) k/uL Basophils # 0.1 (0-0.2) k/uL Hypochromasia Marked Anisocytosis Slight PT 13.1 H (10.0-12.5) sec INR 1.2 H (<1.2) APTT 25.0 (22.0-30.0) sec Sodium 140 (137-145) mmol/L Potassium 3.3 L (3.5-5.1) mmol/L Chloride 110 H (98-107) mmol/L Carbon Dioxide 23 (22-30) mmol/L Anion Gap 7 mmol/L BUN 7 (7-17) mg/dL Creatinine 0.40 L (0.52-1.04) mg/dL Est GFR (CKD-EPI)AfAm >90 (>60 ml/min/1.73 sqM) Est GFR (CKD-EPI)NonAf >90 (>60 ml/min/1.73 sqM) Glucose 114 H (74-99) mg/dL Calcium 8.7 (8.4-10.2) mg/dL Phosphorus 3.7 (2.5-4.5) mg/dL Magnesium 1.8 (1.6-2.3) mg/dL Total Bilirubin 0.3 (0.2-1.3) mg/dL AST 25 (14-36) U/L ALT 14 (4-34) U/L Alkaline Phosphatase 113 (38-126) U/L Troponin I (0.000-0.034) ng/mL C-Reactive Protein 3.3 H (<1.0) mg/dL NT-Pro-B Natriuret Pep 3220 pg/mL Total Protein 8.0 (6.3-8.2) g/dL Albumin 2.5 L (3.5-5.0) g/dL TSH 1.380 (0.465-4.680) mIU/L 07/29/23 Range/Units 17:58 WBC (3.8-10.6) k/uL RBC (3.80-5.40) m/uL Hgb (11.4-16.0) gm/dL Hct (34.0-46.0) % MCV (80.0-100.0) fL MCH (25.0-35.0) pg MCHC (31.0-37.0) g/dL RDW (11.5-15.5) % Plt Count (150-450) k/uL MPV Neutrophils % % Lymphocytes % % Monocytes % % Eosinophils % % Basophils % % Neutrophils # (1.3-7.7) k/uL Lymphocytes # (1.0-4.8) k/uL Monocytes # (0-1.0) k/uL Eosinophils # (0-0.7) k/uL Basophils # (0-0.2) k/uL Hypochromasia Anisocytosis PT (10.0-12.5) sec INR (<1.2) APTT (22.0-30.0) sec Sodium (137-145) mmol/L Potassium (3.5-5.1) mmol/L Chloride (98-107) mmol/L Carbon Dioxide (22-30) mmol/L Anion Gap mmol/L BUN (7-17) mg/dL Creatinine (0.52-1.04) mg/dL Est GFR (CKD-EPI)AfAm (>60 ml/min/1.73 sqM) Est GFR (CKD-EPI)NonAf (>60 ml/min/1.73 sqM) Glucose (74-99) mg/dL Calcium (8.4-10.2) mg/dL Phosphorus (2.5-4.5) mg/dL Magnesium (1.6-2.3) mg/dL Total Bilirubin (0.2-1.3) mg/dL AST (14-36) U/L ALT (4-34) U/L Alkaline Phosphatase (38-126) U/L Troponin I <0.012 (0.000-0.034) ng/mL C-Reactive Protein (<1.0) mg/dL NT-Pro-B Natriuret Pep pg/mL Total Protein (6.3-8.2) g/dL Albumin (3.5-5.0) g/dL TSH (0.465-4.680) mIU/L - EKG Data -: EKG Interpreted by Me (EKG is sinus tachycardia 111 KS 152 QRS 71 QTC 369) Disposition Clinical Impression: Paralysis, General weakness, Sacral decubitus ulcer Disposition: ADMITTED IP TO THIS HOSP Condition: Fair Is patient prescribed a controlled substance at d/c from ED?: No Time of Disposition: 18:40
[2023-07-29] MEDS ORDERED: VANCOMYCIN 1,500 MG in SODIUM CHLORIDE 0.9% 500 ML 500 ML IVPB STA (17:56)
[2023-07-29 19:35] LABS: Anisocytosis Slight; Basophils # (A) 0.1 k/uL (0-0.2); Basophils % (A) 1 %; Eosinophils # (A) 0.6 k/uL (0-0.7); Eosinophils % (A) 6 %; HCT 26.2 % (34.0-46.0); HGB 8.2 gm/dL (11.4-16.0); Hypochromasia Marked; Lymphocytes # (A) 4.4 k/uL (1.0-4.8); Lymphocytes % (A) 41 %; MCH 29.8 pg (25.0-35.0); MCHC 31.2 g/dL (31.0-37.0); MCV 95.3 fL (80.0-100.0); Monocytes # (A) 0.5 k/uL (0-1.0); Monocytes % (A) 5 %; Neutrophils # (A) 4.8 k/uL (1.3-7.7); Neutrophils % (A) 45 %; Platelet Count 481 k/uL (150-450); RBC 2.75 m/uL (3.80-5.40); RDW 16.5 % (11.5-15.5); WBC 10.6 k/uL (3.8-10.6)
[2023-07-29 19:40] LABS: INR 1.2 (<1.2); Prothrombin Time 13.1 sec (10.0-12.5)
[2023-07-29 19:46] LABS: ALT 14 U/L (4-34); AST 25 U/L (14-36); African American GFR (CKD) >90 (>60 ml/min/1.73 sqM); Albumin 2.5 g/dL (3.5-5.0); Alkaline Phosphatase 113 U/L (38-126); Anion Gap 7 mmol/L; Blood Urea Nitrogen 7 mg/dL (7-17); C Reactive Protein 3.3 mg/dL (<1.0); Calcium 8.7 mg/dL (8.4-10.2); Carbon Dioxide 23 mmol/L (22-30); Chloride 110 mmol/L (98-107); Glucose 114 mg/dL (74-99); Magnesium 1.8 mg/dL (1.6-2.3); Non-African American GFR(CKD) >90 (>60 ml/min/1.73 sqM); Phosphorus 3.7 mg/dL (2.5-4.5); Potassium 3.3 mmol/L (3.5-5.1); Sodium 140 mmol/L (137-145); Total Bilirubin 0.3 mg/dL (0.2-1.3)
[2023-07-29 19:53] LABS: NT-Pro-B-Type Natriuretic Pept 3220 pg/mL
[2023-07-29] MEDS ORDERED: NALOXONE 0.4 MG/ML 1 ML VIAL IV PRN (19:58)
[2023-07-29] MEDS ORDERED: ONDANSETRON 4 MG/2 ML VIAL IVP PRN (19:58)
[2023-07-29] MEDS ORDERED: MORPHINE SULFATE 4 MG/ML SYRINGE IV PRN (19:58)
[2023-07-29] MEDS ORDERED: POTASSIUM BICARBONATE/CIT AC 20 MEQ TABLET.EFF PO ONE (20:00)
[2023-07-29] MEDS ORDERED: MAGNESIUM HYDROXIDE 2,400 MG/30 ML CUP PO PRN (20:52)
[2023-07-29] MEDS: SODIUM CHLORIDE 0.9% 1,000 ML IV SCH (21:07)
[2023-07-29] MEDS: BENZTROPINE MESYLATE 1 MG TAB PO SCH (21:08)
[2023-07-29] MEDS: haloperidoL 5 MG TAB PO SCH (21:08)
[2023-07-29] MEDS: GABAPENTIN 100 MG CAP PO SCH (21:58)
[2023-07-29] MEDS: SENNOSIDES-DOCUSATE SODIUM 1 EACH TAB PO SCH (21:58)
[2023-07-29] MEDS: METOPROLOL TARTRATE 25 MG TAB PO SCH (21:58)
[2023-07-29] MEDS: droNABinol 2.5 MG CAP PO SCH (21:58)
[2023-07-29] MEDS: PIPERACILLIN-TAZOBACTAM 3.375 GM in SODIUM CHLORIDE 0.9% 100 ML IVPB SCH (23:50)
[2023-07-30] MEDS: BENZTROPINE MESYLATE 1 MG TAB PO SCH ×2 (08:01→22:54)
[2023-07-30] MEDS: ASCORBIC ACID 500 MG TAB PO SCH (08:05)
[2023-07-30] MEDS: CHOLECALCIFEROL 25 MCG (1000 IU) TABLET PO SCH (08:06)
[2023-07-30] MEDS: FAMOTIDINE 20 MG TAB PO SCH (08:06)
[2023-07-30] MEDS: MULTIVITAMINS, THERA 1 EACH TAB PO SCH (08:07)
[2023-07-30] MEDS: METOPROLOL TARTRATE 25 MG TAB PO SCH ×2 (08:08→22:54)
[2023-07-30] MEDS: FERROUS SULFATE 325 MG TAB PO SCH (08:09)
[2023-07-30] MEDS: SENNOSIDES-DOCUSATE SODIUM 1 EACH TAB PO SCH ×2 (08:09→22:54)
[2023-07-30] MEDS: PIPERACILLIN-TAZOBACTAM 3.375 GM in SODIUM CHLORIDE 0.9% 100 ML IVPB SCH ×2 (08:11→17:29)
[2023-07-30] MEDS: droNABinol 2.5 MG CAP PO SCH ×2 (08:11→22:54)
[2023-07-30] MEDS: GABAPENTIN 100 MG CAP PO SCH ×2 (08:11→22:53)
[2023-07-30 09:55] LABS: Glucose,Whole Blood 149 mg/dL (70-110)
[2023-07-30 09:57] LABS: ALT 17 U/L (4-34); AST 27 U/L (14-36); African American GFR (CKD) >90 (>60 ml/min/1.73 sqM); Albumin 2.5 g/dL (3.5-5.0); Albumin/Globulin Ratio 0.4; Alkaline Phosphatase 107 U/L (38-126); Anion Gap 6 mmol/L; Blood Urea Nitrogen 5 mg/dL (7-17); Calcium 8.5 mg/dL (8.4-10.2); Carbon Dioxide 23 mmol/L (22-30); Chloride 114 mmol/L (98-107); Globulin 5.7 g/dL; Glucose 152 mg/dL (74-99); Lipase 19 U/L (23-300); Magnesium 1.8 mg/dL (1.6-2.3); Non-African American GFR(CKD) >90 (>60 ml/min/1.73 sqM); Phosphorus 3.8 mg/dL (2.5-4.5); Potassium 4.1 mmol/L (3.5-5.1); Sodium 143 mmol/L (137-145); Total Bilirubin 0.5 mg/dL (0.2-1.3); Total Protein 8.2 g/dL (6.3-8.2)
[2023-07-30] MEDS: LINAGLIPTIN 5 MG TABLET PO SCH (10:02)
[2023-07-30] MEDS: VANCOMYCIN 1,500 MG in SODIUM CHLORIDE 0.9% 500 ML 500 ML IVPB SCH ×2 (10:26→22:55)
[2023-07-30 10:27] LABS: Anisocytosis Slight; Basophils # (A) 0.1 k/uL (0-0.2); Basophils % (A) 1 %; Eosinophils # (A) 0.4 k/uL (0-0.7); Eosinophils % (A) 4 %; HCT 27.3 % (34.0-46.0); HGB 8.4 gm/dL (11.4-16.0); Hypochromasia Marked; Lymphocytes # (A) 2.4 k/uL (1.0-4.8); Lymphocytes % (A) 28 %; MCH 29.5 pg (25.0-35.0); MCHC 30.7 g/dL (31.0-37.0); Mean Platelet Volume 8.2; Monocytes # (A) 0.6 k/uL (0-1.0); Monocytes % (A) 6 %; Neutrophils # (A) 4.9 k/uL (1.3-7.7); Neutrophils % (A) 58 %; Platelet Count 477 k/uL (150-450); RBC 2.84 m/uL (3.80-5.40); RDW 16.4 % (11.5-15.5); WBC 8.5 k/uL (3.8-10.6)
[2023-07-30] MEDS: LACTULOSE 20 GM/30 ML CUP PO SCH (15:23)
[2023-07-30] MEDS: polyethylene glycoL 3350 17 GM POWD.PACK PO SCH ×2 (15:23→22:55)
[2023-07-30] MEDS: ACETAMINOPHEN TAB 500 MG TAB PO PRN (16:43)
--- NOTE | 2023-07-30 17:59 | P.HPIM ---
History of Present Illness H&P Date: 07/30/23 Chief Complaint: Decubital ulcer This is a 77-year-old patient, at rehab at [facility]. Being followed by Dr. Mijares. Chronic stable medical conditions includes dementia, diabetes, hypertension, osteoarthritis, bipolar. Most of the history is obtained by the granddaughter the bedside. Approximately 4 weeks ago patient was sent to [facility] where patient was found to have discitis in the lumbar area. Patient got surgery for the same and rods reported the spine. Patient did come back to rehab. Further change in mental status patient is sent back to [facility] again. Patient had been septic. Is on IV Zosyn. Supposed to get a total of 6 weeks. Being followed by infectious disease. His started off with bedsores that has progressively gotten worse. Local wound care has continued. As a sacral decubiti this became larger patient sent back to the ER for further treatment. As per the granddaughter they'll prefer to have treatment done here and not cold to [place] if that can be avoided. At her baseline currently patient is able to walk about 10-15 steps with physical therapy. Patient has been getting IV antibiotics via PICC line. Consultation to ID and vascular for wound care was done. Past medical history to include: Dementia, diabetes, hypertension, osteoarthritis,, bipolar, discitis-lumbar Social history: No smoking or alcohol history. Currently at rehab at [facility]. Patient's son Ar Ramírez is the POA. Physical examination: VITAL SIGNS: 98.2, 120, 20, 140/68, 95% room air GENERAL: BMI 30.2, declining bed awake tired. EYES: Pupils equal. Conjunctiva normal. HEENT: External appearance of nose and ears normal, oral cavity grossly normal. NECK: JVD not raised; masses not palpable. HEART: First and second heart sounds are normal; no edema. LUNGS: Respiratory rate normal; clear to auscultation. ABDOMEN: Soft, nontender, liver spleen not palpable, no masses palpable. PSYCH: [Able to answer simple questions. DERMATOLOGICAL: Large sacral decubitus ulcer down to the bone. Pictures and nursing chart MUSCULOSKELETAL:No Clubbing/cyanosis;muscles-grossly intact, OA NEUROLOGICAL: Cranial nerves grossly intact; no facial asymmetry, power and sensation grossly intact. LYMPHATICS: No lymph nodes palpable in the axilla and neck INVESTIGATIONS, reviewed in the clinical context: July 30: White count 8.5 hemoglobin 8.4 platelets 477 potassium 4.1 BUN 5 creatinine 0.37 CRP 3.3 proBNP 3220 TSH 1.3 EKG tracing personally reviewed by me-normal sinus rhythm. Nonspecific ST-T wave changes. Assessment and plan: -Stage IV large sacral decubitus ulcer. Possibly infected. This seems to progress at the course of about 4 weeks. Patient has been getting IV Zosyn antibiotic for her discitis. Consults vascular Dr. Cobb. ID Dr. Abreu. -Chronic medical debility. At the baseline using a walker last few weeks. -Chronic constipation MiraLAX, senna plus, lactulose -Diabetes mellitus type 2 Januvia. Follow Accu-Cheks with sliding scale -Essential hypertension Lopressor 25 mg twice a day -History of lumbar discitis. Patient had surgery for the same. Currently on IV Unasyn. -Cognitive impairment -Full code -Mark Anthony AVINA, Ar Ramírez. Son Care was discussed length with patient's granddaughter bedside. Patient's son Ar was also on the phone. I discussed with ID Dr. Abreu and Dr. Cobb from vascular. Patient might need a diverting colostomy because of the position of the sacral decubitus ulcer. Consult Dr. Mullen. Past Medical History Past Medical History: CVA/TIA, Dementia, Diabetes Mellitus, Hypertension, Osteoarthritis (OA) Additional Past Medical History / Comment(s): Pt states she is on an antibiotic for ear infection/throat infection at this time, TIA which affected speech, pt denies HTN but it is documented in past medical hx, diet controlled diabetes History of Any Multi-Drug Resistant Organisms: None Reported Past Surgical History: Orthopedic Surgery Additional Past Surgical History / Comment(s): I&D tooth abscess, left trigger finger surgery Past Anesthesia/Blood Transfusion Reactions: No Reported Reaction Past Psychological History: Anxiety, Bipolar, Depression Smoking Status: Never smoker Past Alcohol Use History: None Reported Past Drug Use History: None Reported - Past Family History Father Family Medical History: No Reported History Mother Family Medical History: No Reported History Medications and Allergies Home Medications Medication Instructions Recorded Confirmed Type 0.9 % Sodium Chloride [Sodium 10 ml IV Q6H 07/29/23 07/29/23 History Chloride Flush] Ampicillin-Sulbactam [Unasyn 3 gm 3 gm IVPB Q6HR 07/29/23 07/29/23 History vial] Apixaban [Eliquis] 5 mg PO BID 07/29/23 07/29/23 History Ascorbic Acid [Vitamin C] 250 mg PO DAILY 07/29/23 07/29/23 History Benztropine Mesylate [Cogentin] 2 mg PO BID 07/29/23 07/29/23 History Cholecalciferol [Vitamin D3 (25 50 mcg PO DAILY 07/29/23 07/29/23 History Mcg = 1000 Iu)] Famotidine [Pepcid] 20 mg PO DAILY 07/29/23 07/29/23 History Ferrous Sulfate [Iron] 325 mg PO DAILY 07/29/23 07/29/23 History Gabapentin [Neurontin] 100 mg PO BID 07/29/23 07/29/23 History HYDROcodone/APAP 5-325MG [[place] 1 tab PO Q4HR PRN 07/29/23 07/29/23 History 5-325] Insulin Lispro [humaLOG Kwikpen] See Protocol SQ ACHS 07/29/23 07/29/23 History Lactulose 20 gm PO DAILY 07/29/23 07/29/23 History Magnesium Hydroxide [Milk of 2,400 mg PO Q72H PRN 07/29/23 07/29/23 History Magnesia] Metoprolol Tartrate [Lopressor] 25 mg PO BID 07/29/23 07/29/23 History Multivitamins, Thera [Multivitamin 1 tab PO DAILY 07/29/23 07/29/23 History (formulary)] Sennosides/Docusate Sodium [Senna 1 tab PO BID 07/29/23 07/29/23 History Plus 8.6-50 mg Tablet] droNABinol [Marinol] 2.5 mg PO BID 07/29/23 07/29/23 History haloperidoL [Haldol] 2.5 mg PO HS 07/29/23 07/29/23 History polyethylene glycoL 3350 [Miralax] 17 gm PO BID 07/29/23 07/29/23 History sitaGLIPtin [Januvia] 50 mg PO DAILY 07/29/23 07/29/23 History Allergies Allergy/AdvReac Type Severity Reaction Status Date / Time metformin Allergy Unknown Verified 07/29/23 18:14 Sulfa (Sulfonamide Allergy Unknown Verified 07/29/23 18:14 Antibiotics) Physical Exam Vitals: Vital Signs Temp Pulse Resp BP Pulse Ox 07/30/23 10:00 60 20 144/79 98 07/30/23 09:00 111 H 20 151/86 99 07/30/23 08:00 98.4 F 120 H 20 140/68 95 07/29/23 21:00 98.3 F 114 H 20 134/66 100 07/29/23 19:55 117 H 22 156/74 100 07/29/23 15:12 98.2 F 97 16 174/81 98 Intake and Output 07/29/23 07/30/23 07/30/23 22:59 06:59 14:59 Other: Weight 79.832 kg Results CBC & Chem 7: 07/30/23 09:09 07/30/23 09:09 Labs: Abnormal Lab Results - Last 24 Hours (Table) 07/29/23 07/29/23 07/29/23 Range/Units 17:58 17:58 17:58 RBC 2.75 L (3.80-5.40) m/uL Hgb 8.2 L (11.4-16.0) gm/dL Hct 26.2 L (34.0-46.0) % MCHC (31.0-37.0) g/dL RDW 16.5 H (11.5-15.5) % Plt Count 481 H (150-450) k/uL PT 13.1 H (10.0-12.5) sec INR 1.2 H (<1.2) Potassium 3.3 L (3.5-5.1) mmol/L Chloride 110 H (98-107) mmol/L BUN (7-17) mg/dL Creatinine 0.40 L (0.52-1.04) mg/dL Glucose 114 H (74-99) mg/dL POC Glucose (mg/dL) (70-110) mg/dL C-Reactive Protein 3.3 H (<1.0) mg/dL Albumin 2.5 L (3.5-5.0) g/dL Lipase (23-300) U/L 07/30/23 07/30/23 07/30/23 Range/Units 09:09 09:09 09:53 RBC 2.84 L (3.80-5.40) m/uL Hgb 8.4 L (11.4-16.0) gm/dL Hct 27.3 L (34.0-46.0) % MCHC 30.7 L (31.0-37.0) g/dL RDW 16.4 H (11.5-15.5) % Plt Count 477 H (150-450) k/uL PT (10.0-12.5) sec INR (<1.2) Potassium (3.5-5.1) mmol/L Chloride 114 H (98-107) mmol/L BUN 5 L (7-17) mg/dL Creatinine 0.37 L (0.52-1.04) mg/dL Glucose 152 H (74-99) mg/dL POC Glucose (mg/dL) 149 H (70-110) mg/dL C-Reactive Protein (<1.0) mg/dL Albumin 2.5 L (3.5-5.0) g/dL Lipase 19 L (23-300) U/L
[2023-07-30] MEDS: SODIUM CHLORIDE 0.9% 1,000 ML IV SCH (22:53)
[2023-07-30] MEDS: haloperidoL 5 MG TAB PO SCH (22:54)
[2023-07-30] MEDS: AMPICILLIN-SULBACTAM 3 GM in SODIUM CHLORIDE 0.9% 100 ML IVPB SCH (23:02)
[2023-07-31] MEDS: AMPICILLIN-SULBACTAM 3 GM in SODIUM CHLORIDE 0.9% 100 ML IVPB SCH ×3 (04:28→16:21)
[2023-07-31 06:09] LABS: Glucose,Whole Blood 104 mg/dL (70-110)
[2023-07-31] MEDS ORDERED: VANCOMYCIN TROUGH DUE 1 EACH MISC MISCELLANE ONE (08:00)
[2023-07-31 08:03] LABS: African American GFR (CKD) >90 (>60 ml/min/1.73 sqM); Non-African American GFR(CKD) >90 (>60 ml/min/1.73 sqM)
[2023-07-31] MEDS: METOPROLOL TARTRATE 25 MG TAB PO SCH ×2 (08:10→21:04)
[2023-07-31] MEDS: FERROUS SULFATE 325 MG TAB PO SCH (08:11)
[2023-07-31] MEDS: polyethylene glycoL 3350 17 GM POWD.PACK PO SCH ×2 (08:11→21:04)
[2023-07-31] MEDS: MULTIVITAMINS, THERA 1 EACH TAB PO SCH (08:13)
[2023-07-31] MEDS: FAMOTIDINE 20 MG TAB PO SCH (08:13)
[2023-07-31] MEDS: LINAGLIPTIN 5 MG TABLET PO SCH (08:13)
[2023-07-31] MEDS: droNABinol 2.5 MG CAP PO SCH ×2 (08:14→21:03)
[2023-07-31] MEDS: SENNOSIDES-DOCUSATE SODIUM 1 EACH TAB PO SCH ×2 (08:15→21:04)
[2023-07-31] MEDS: BENZTROPINE MESYLATE 1 MG TAB PO SCH ×2 (08:16→21:03)
[2023-07-31] MEDS: CHOLECALCIFEROL 25 MCG (1000 IU) TABLET PO SCH (08:16)
[2023-07-31] MEDS: GABAPENTIN 100 MG CAP PO SCH ×2 (08:17→21:04)
[2023-07-31] MEDS: ASCORBIC ACID 500 MG TAB PO SCH (08:17)
[2023-07-31] MEDS: LACTULOSE 20 GM/30 ML CUP PO SCH (08:19)
--- NOTE | 2023-07-31 08:54 | P.CONS ---
History of Present Illness - Reason for Consult Consult date: 07/30/23 Decubitus ulcer Requesting physician: Edgar Zuñiga - Chief Complaint Worsening sacral pressure ulcer x few days - History of Present Illness Patient is a 77-year-old -Indian female with a past medical history significant for hypertension diabetes mellitus dementia CVA TIA patient recently did have 2 stay at [facility] initial 1 was for possible discitis and this patient apparently did have a E. coli infection and was advised a 6-week course of IV Rocephin subsequently readmitted to the [facility] with worsening wound to the sacral area s/p debridement culture positive for Enterococcus faecalis antibiotic was switched over to Unasyn 3 g every 6 hours with the patient scheduled to complete as of 08/20/2023 pending the patient have debridement of the wound and the patient was doing well however patient was noticed to have a worsening of the wound for the patient has been sent to the [facility] ER yesterday afternoon for further evaluation history has been provided by the granddaughter at the bedside as the patient was not a very good historian no clear history of any fever or any chills no history of any nausea vomiting diarrhea main concern has been worsening of the wound the pain has got worse over the last few days with significant slough tissue and did have some foul-smelling drainage, some of the information has been extracted from review of her chart at [facility] Review of Systems Positive point and negatives has been mentioned in the HPI, complete review of systems was performed and all other systems are negative Past Medical History Past Medical History: CVA/TIA, Dementia, Diabetes Mellitus, Hypertension, Osteoarthritis (OA) Additional Past Medical History / Comment(s): Pt states she is on an antibiotic for ear infection/throat infection at this time, TIA which affected speech, pt denies HTN but it is documented in past medical hx, diet controlled diabetes History of Any Multi-Drug Resistant Organisms: None Reported Past Surgical History: Orthopedic Surgery Additional Past Surgical History / Comment(s): I&D tooth abscess, left trigger finger surgery Past Anesthesia/Blood Transfusion Reactions: No Reported Reaction Past Psychological History: Anxiety, Bipolar, Depression Smoking Status: Never smoker Past Alcohol Use History: None Reported Past Drug Use History: None Reported - Past Family History Father Family Medical History: No Reported History Mother Family Medical History: No Reported History Medications and Allergies Home Medications Medication Instructions Recorded Confirmed Type 0.9 % Sodium Chloride [Sodium 10 ml IV Q6H 07/29/23 07/29/23 History Chloride Flush] Apixaban [Eliquis] 5 mg PO BID 07/29/23 07/29/23 History Ascorbic Acid [Vitamin C] 250 mg PO DAILY 07/29/23 07/29/23 History Benztropine Mesylate [Cogentin] 2 mg PO BID 07/29/23 07/29/23 History Cholecalciferol [Vitamin D3 (25 50 mcg PO DAILY 07/29/23 07/29/23 History Mcg = 1000 Iu)] Famotidine [Pepcid] 20 mg PO DAILY 07/29/23 07/29/23 History Ferrous Sulfate [Iron] 325 mg PO DAILY 07/29/23 07/29/23 History Insulin Lispro [humaLOG Kwikpen] See Protocol SQ ACHS 07/29/23 07/29/23 History Lactulose 20 gm PO DAILY 07/29/23 07/29/23 History Magnesium Hydroxide [Milk of 2,400 mg PO Q72H PRN 07/29/23 07/29/23 History Magnesia] Multivitamins, Thera [Multivitamin 1 tab PO DAILY 07/29/23 07/29/23 History (formulary)] Sennosides/Docusate Sodium [Senna 1 tab PO BID 07/29/23 07/29/23 History Plus 8.6-50 mg Tablet] polyethylene glycoL 3350 [Miralax] 17 gm PO BID 07/29/23 07/29/23 History sitaGLIPtin [Januvia] 50 mg PO DAILY 07/29/23 07/29/23 History Acetaminophen Tab [Tylenol] 500 mg PO Q6HR PRN tab 08/09/23 Rx Anidulafungin [Eraxis] 100 mg IVPB DAILY #40 each 08/09/23 Rx Collagenase [Santyl Ointment] 1 applic TOPICAL DAILY each 08/09/23 Rx Diclofenac Sodium Gel [Voltaren 1% 2 gm TOPICAL QID gm 08/09/23 Rx Gel] Gabapentin [Neurontin] 100 mg PO BID #6 cap 08/09/23 Rx HYDROcodone/APAP 5-325MG [[place] 1 tab PO Q4HR PRN #18 tab 08/09/23 Rx 5-325] Metoprolol Tartrate [Lopressor] 25 mg PO TID #0 08/09/23 07/29/23 Rx Piperacillin-Tazobactam [Zosyn] 3.375 gm IVPB Q8HR #120 each 08/09/23 Rx droNABinol [Marinol] 2.5 mg PO BID #6 cap 08/09/23 Rx haloperidoL [Haldol] 2.5 mg PO HS #3 tab 08/09/23 Rx Allergies Allergy/AdvReac Type Severity Reaction Status Date / Time metformin Allergy Unknown Verified 07/29/23 18:14 Sulfa (Sulfonamide Allergy Unknown Verified 07/29/23 18:14 Antibiotics) Physical Exam Vitals: Vital Signs Temp Pulse Resp BP Pulse Ox 07/30/23 10:00 60 20 144/79 98 07/30/23 09:00 111 H 20 151/86 99 07/30/23 08:00 98.4 F 120 H 20 140/68 95 07/29/23 21:00 98.3 F 114 H 20 134/66 100 07/29/23 19:55 117 H 22 156/74 100 07/29/23 15:12 98.2 F 97 16 174/81 98 Intake and Output 07/29/23 07/30/23 07/30/23 22:59 06:59 14:59 Other: Weight 79.832 kg GENERAL DESCRIPTION: Elderly female lying in bed, no distress. No tachypnea or accessory muscle of respiration use. HEENT: Shows Pallor , no scleral icterus. Oral mucous membrane is dry. No pharyngeal erythema or thrush NECK: Trachea central, no thyromegaly. LUNGS: Unlabored breathing. Clear to auscultation anteriorly. No wheeze or crackle. HEART: S1, S2, regular rate and rhythm. No loud murmur ABDOMEN: Soft, no tenderness , guarding or rigidity, no organomegaly EXTREMITIES: No edema of feet. SKIN: No rash, no masses palpable. Patient did have a unstageable sacral pressure ulcer with slough tissue surrounding swelling redness and some drainage NEUROLOGICAL: The patient is awake, alert, oriented x3, mood and affect normal. Results CBC & Chem 7: 08/08/23 06:40 08/08/23 06:40 Labs: Abnormal Lab Results - Last 24 Hours (Table) 1007/29/23 07/29/23 Range/Units 17:58 17:58 17:58 RBC 2.75 L (3.80-5.40) m/uL Hgb 8.2 L (11.4-16.0) gm/dL Hct 26.2 L (34.0-46.0) % MCHC (31.0-37.0) g/dL RDW 16.5 H (11.5-15.5) % Plt Count 481 H (150-450) k/uL PT 13.1 H (10.0-12.5) sec INR 1.2 H (<1.2) Potassium 3.3 L (3.5-5.1) mmol/L Chloride 110 H (98-107) mmol/L BUN (7-17) mg/dL Creatinine 0.40 L (0.52-1.04) mg/dL Glucose 114 H (74-99) mg/dL POC Glucose (mg/dL) (70-110) mg/dL C-Reactive Protein 3.3 H (<1.0) mg/dL Albumin 2.5 L (3.5-5.0) g/dL Lipase (23-300) U/L 07/30/23 07/30/23 07/30/23 Range/Units 09:09 09:09 09:53 RBC 2.84 L (3.80-5.40) m/uL Hgb 8.4 L (11.4-16.0) gm/dL Hct 27.3 L (34.0-46.0) % MCHC 30.7 L (31.0-37.0) g/dL RDW 16.4 H (11.5-15.5) % Plt Count 477 H (150-450) k/uL PT (10.0-12.5) sec INR (<1.2) Potassium (3.5-5.1) mmol/L Chloride 114 H (98-107) mmol/L BUN 5 L (7-17) mg/dL Creatinine 0.37 L (0.52-1.04) mg/dL Glucose 152 H (74-99) mg/dL POC Glucose (mg/dL) 149 H (70-110) mg/dL C-Reactive Protein (<1.0) mg/dL Albumin 2.5 L (3.5-5.0) g/dL Lipase 19 L (23-300) U/L Assessment and Plan (1) Sacral decubitus ulcer Current Visit: Yes Status: Acute Code(s): L89.159 - PRESSURE ULCER OF SACRAL REGION, UNSPECIFIED STAGE SNOMED Code(s): 450930989 Plan: 1patient being brought into the hospital with a worsening wound to the sacral area which apparently was recently acquired during one of her hospital stay with a recent admission at [facility] initial notes for discitis subsequently for worsening wound infection that was debrided and culture positive for Enterococcus faecalis patient was getting Unasyn now being admitted to the hospital with worsening wound patient did have significant slough tissue and would require surgical debridement and deep culture and may n eed diverting colostomy to prevent recurrent stool contamination of her sacral wound and wound VAC placement, this has been discussed in detail with the granddaughter at the illness with admitting physician 2-vascular surgery and subsequently general surgery has been consulted awaiting their evaluation and recommendation 3-continue with the vancomycin however discontinue Zosyn start the patient Un asyn to decrease risk of nephrotoxicity 4-check inflammatory markers Family at the bedside multiple questions were answered in layman term We will follow on clinical condition and cultures to further adjust medication if needed Thank you for this consultation we will follow the patient along with you Dictation was produced using [employer] dictation software. please excuse any grammatical, word or spelling errors. Time with Patient: Greater than 30
[2023-07-31] MEDS: VANCOMYCIN 1,500 MG in SODIUM CHLORIDE 0.9% 500 ML 500 ML IVPB SCH ×2 (11:03→21:04)
[2023-07-31 11:39] LABS: Glucose,Whole Blood 133 mg/dL (70-110)
[2023-07-31] MEDS: ACETAMINOPHEN TAB 500 MG TAB PO PRN (11:57)
--- NOTE | 2023-07-31 12:36 | P.PN ---
Subjective Progress Note Date: 07/31/23 Principal diagnosis: Infected sacral pressure ulcer Patient is a 77-year-old -Greenlandic female with a past medical history significant for hypertension diabetes mellitus dementia CVA TIA patient recently did have 2 stay at [facility] initial 1 was for possible discitis and this patient apparently did have a E. coli infection and was advised a 6-week course of IV Rocephin subsequently readmitted to the [facility] with worsening wound to the sacral area s/p debridement culture positive for Enterococcus faecalis antibiotic was switched over to Unasyn 3 g every 6 hours, patient has not been brought to [facility] ER with worsening sacral wound. On today's evaluation that is 07/31/2023, the patient continues to be afebrile , the patient is breathing comfortably on room air and denies any shortness of breath, the patient denies any chest pain and no cough or sputum production, patient denies abdominal pain and no nausea/vomiting or diarrhea has been reported Patient did have white count of 8.5, creatinine 0.30, local and blood cultures are pending Objective - Vital Signs Vital signs: Vital Signs Temp 98.2 F 07/31/23 07:37 Pulse 111 H 07/31/23 07:37 Resp 16 07/31/23 07:37 BP 146/76 07/31/23 07:37 Pulse Ox 98 07/31/23 07:37 FiO2 Intake & Output 07/30/23 07/31/23 07/31/23 18:59 06:59 18:59 Output Total 4700 2750 Balance -4700 -2750 Weight 79.832 kg Output: Urine 4700 2750 Other: Voiding Method Indwelling Catheter - Exam GENERAL DESCRIPTION: An elderly female lying in bed in no distress RESPIRATORY SYSTEM: Unlabored breathing , clear to auscultation anteriorly HEART: S1 S2 regular rate and rhythm , ABDOMEN: Soft , no tenderness EXTREMITIES: No edema feet Patient did have a stage IV sacral pressure ulcer with some slough tissue - Labs CBC & Chem 7: 07/30/23 09:09 07/31/23 07:14 Labs: Abnormal Lab Results - Last 24 Hours (Table) 07/31/23 07/31/23 Range/Units 07:14 11:38 Creatinine 0.30 L (0.52-1.04) mg/dL POC Glucose (mg/dL) 133 H (70-110) mg/dL Microbiology - Last 24 Hours (Table) 07/29/23 19:22 Blood Culture - Preliminary Blood 07/29/23 19:22 Blood Culture - Preliminary Blood 07/29/23 17:58 Gram Stain - Preliminary Buttock Assessment and Plan (1) Infected pressure ulcer Current Visit: Yes Status: Acute Code(s): L89.90 - PRESSURE ULCER OF UNSPECIFIED SITE, UNSPECIFIED STAGE; L08.9 - LOCAL INFECTION OF THE SKIN AND SUBCUTANEOUS TISSUE, UNSP SNOMED Code(s): 468658589 (2) Sacral decubitus ulcer Current Visit: Yes Status: Acute Code(s): L89.159 - PRESSURE ULCER OF SACRAL REGION, UNSPECIFIED STAGE SNOMED Code(s): 069187298 Plan: 1patient being brought into the hospital with a worsening wound to the sacral area which apparently was recently acquired during one of her hospital stay with a recent admission at [facility] initial notes for discitis subsequently for worsening wound infection that was debrided and culture positive for Enterococcus faecalis patient was getting Unasyn now being admitted to the hospital with worsening wound patient did have significant slough tissue and would require surgical debridement and deep culture and may need diverting colostomy to prevent recurrent stool contamination of her sacral wound and wound VAC placement, this has been discussed in detail with the son on the phone 2-General surgery has been consulted awaiting their evaluation and recommendation 3-patient to continue with the vancomycin along with Unasyn while waiting for the culture to be finalize Care was discussed in detail with the granddaughter at the bedside and with the son on the phone Dictation was produced using [employer] dictation software. please excuse any grammatical, word or spelling errors. Time with Patient: Greater than 30
--- NOTE | 2023-07-31 13:09 | P.GSCN ---
History of Present Illness Consult date: 07/31/23 History of present illness: CHIEF COMPLAINT: Sacral decubitus ulcer HISTORY OF PRESENT ILLNESS: This is a 77-year-old female who has a large sacral decubitus ulcer. Patient has limited activity. She is mostly red pound or in her wheelchair. Approximate 4 week ago at [place] she had a discitis of the lumbar spine and had surgery. Patient had been septic and received IV antibiotics. She had been at rehab. Patient sacral ulcer on had continued to worsen patient did receive a debridement to the sacral wound about 2-3 weeks ago at [facility]. Patient is currently on antibiotics for infection in the sacral decubitus ulcer. She will service has been consulted for possible diverting colostomy. Patient is a diabetic. 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 PAST MEDICAL HISTORY: TIA, Dementia, Diabetes Mellitus, Hypertension, Osteoarthritis (OA), diabetes, anxiety, bipolar, depression PAST SURGICAL HISTORY: Orthopedic surgery MEDICATIONS: See below ALLERGIES: See below SOCIAL HISTORY: No illicit drug use. REVIEW OF SYSTEMS: CONSTITUTIONAL: Denies fever or chills. HEENT: Denies blurred vision, vision changes, or eye pain. Denies hemoptysis CARDIOVASCULAR: Denies chest pain or pressure. RESPIRATORY: No shortness of breath. GASTROINTESTINAL: See HPI for pertinent findings HEMATOLOGIC: Denies bleeding disorders. GENITOURINARY: Denies any blood in urine or increased urinary frequency. SKIN: Denies pruitis. Denies rash. PHYSICAL EXAM: VITAL SIGNS: Reviewed GENERAL: Well-developed in no acute distress. ABDOMEN: Soft. Nondistended. nontender Skin: Large Sacral decubitus ulcer with sloughing tissue. Tunneling noted at the distal point of the ulcer. LABORATORY DATA: WBC 8.5 hgb 8.4 platelets 477 Sodium 143 potassium is 4.1 and creatinine 0.37 Blood cultures IMAGING: ASSESSMENT: 1. Large, stage IV sacral decubitus ulcer PLAN: -Plan for diverting colostomy on 08/05/[address] Mullen. Patient will need a diverting colostomy to prevent stool contamination of the sacral decubitus ulcer -Eliquis needs to be held 48 hours before surgery -Continue antibiotics -Continue local wound care Thank you for this consultation Physician Production Machine Shop Supervisor note has been reviewed by physician. Signing provider agrees with the documented findings, assessment, and plan of care. Past Medical History Past Medical History: CVA/TIA, Dementia, Diabetes Mellitus, Hypertension, Osteoarthritis (OA) Additional Past Medical History / Comment(s): Pt states she is on an antibiotic for ear infection/throat infection at this time, TIA which affected speech, pt denies HTN but it is documented in past medical hx, diet controlled diabetes History of Any Multi-Drug Resistant Organisms: None Reported Past Surgical History: Orthopedic Surgery Additional Past Surgical History / Comment(s): I&D tooth abscess, left trigger finger surgery Past Anesthesia/Blood Transfusion Reactions: No Reported Reaction Past Psychological History: Anxiety, Bipolar, Depression Smoking Status: Never smoker Past Alcohol Use History: None Reported Past Drug Use History: None Reported - Past Family History Father Family Medical History: No Reported History Mother Family Medical History: No Reported History Medications and Allergies Home Medications Medication Instructions Recorded Confirmed Type 0.9 % Sodium Chloride [Sodium 10 ml IV Q6H 07/29/23 07/29/23 History Chloride Flush] Ampicillin-Sulbactam [Unasyn 3 gm 3 gm IVPB Q6HR 07/29/23 07/29/23 History vial] Apixaban [Eliquis] 5 mg PO BID 07/29/23 07/29/23 History Ascorbic Acid [Vitamin C] 250 mg PO DAILY 07/29/23 07/29/23 History Benztropine Mesylate [Cogentin] 2 mg PO BID 07/29/23 07/29/23 History Cholecalciferol [Vitamin D3 (25 50 mcg PO DAILY 07/29/23 07/29/23 History Mcg = 1000 Iu)] Famotidine [Pepcid] 20 mg PO DAILY 07/29/23 07/29/23 History Ferrous Sulfate [Iron] 325 mg PO DAILY 07/29/23 07/29/23 History Gabapentin [Neurontin] 100 mg PO BID 07/29/23 07/29/23 History HYDROcodone/APAP 5-325MG [[place] 1 tab PO Q4HR PRN 07/29/23 07/29/23 History 5-325] Insulin Lispro [humaLOG Kwikpen] See Protocol SQ ACHS 07/29/23 07/29/23 History Lactulose 20 gm PO DAILY 07/29/23 07/29/23 History Magnesium Hydroxide [Milk of 2,400 mg PO Q72H PRN 07/29/23 07/29/23 History Magnesia] Metoprolol Tartrate [Lopressor] 25 mg PO BID 07/29/23 07/29/23 History Multivitamins, Thera [Multivitamin 1 tab PO DAILY 07/29/23 07/29/23 History (formulary)] Sennosides/Docusate Sodium [Senna 1 tab PO BID 07/29/23 07/29/23 History Plus 8.6-50 mg Tablet] droNABinol [Marinol] 2.5 mg PO BID 07/29/23 07/29/23 History haloperidoL [Haldol] 2.5 mg PO HS 07/29/23 07/29/23 History polyethylene glycoL 3350 [Miralax] 17 gm PO BID 07/29/23 07/29/23 History sitaGLIPtin [Januvia] 50 mg PO DAILY 07/29/23 07/29/23 History Allergies Allergy/AdvReac Type Severity Reaction Status Date / Time metformin Allergy Unknown Verified 07/29/23 18:14 Sulfa (Sulfonamide Allergy Unknown Verified 07/29/23 18:14 Antibiotics) Surgical - Exam Vital Signs Temp Pulse Resp BP Pulse Ox 98.2 F 97 16 174/81 98 07/29/23 15:12 07/29/23 15:12 07/29/23 15:12 07/29/23 15:12 07/29/23 15:12 Results - Labs 07/30/23 09:09 07/31/23 07:14 Abnormal Lab Results - Last 24 Hours (Table) 07/31/23 Range/Units 07:14 Creatinine 0.30 L (0.52-1.04) mg/dL Microbiology - Last 24 Hours (Table) 07/29/23 19:22 Blood Culture - Preliminary Blood 07/29/23 19:22 Blood Culture - Preliminary Blood 07/29/23 17:58 Gram Stain - Preliminary Buttock Diabetes panel 07/31/23 Range/Units 07:14 Creatinine 0.30 L (0.52-1.04) mg/dL Pituitary panel 07/31/23 Range/Units 07:14 Creatinine 0.30 L (0.52-1.04) mg/dL Adrenal panel 07/31/23 Range/Units 07:14 Creatinine 0.30 L (0.52-1.04) mg/dL
[2023-07-31 15:23] VITALS: BMI 30.2
[2023-07-31] MEDS ORDERED: DEXTROSE 50% SYRINGE 50 ML IVP PRN ×2 (16:24)
[2023-07-31 16:47] LABS: Glucose,Whole Blood 209 mg/dL (70-110)
[2023-07-31] MEDS: INSULIN ASPART (NovoLOG) 100 UNIT/ML VIAL SQ SCH ×2 (17:24→21:04)
[2023-07-31 20:59] LABS: Glucose,Whole Blood 109 mg/dL (70-110)
[2023-07-31] MEDS: haloperidoL 5 MG TAB PO SCH (21:04)
[2023-07-31] MEDS: SODIUM CHLORIDE 0.9% 1,000 ML IV SCH (21:04)
--- NOTE | 2023-07-31 21:10 | P.PN ---
Progress Note - Text Progress Note Date: 07/31/23 Chief Complaint: Decubital ulcer This is a 77-year-old patient, at rehab at [facility]. Being followed by Dr. Mijares. Chronic stable medical conditions includes dementia, diabetes, hypertension, osteoarthritis, bipolar. Most of the history is obtained by the granddaughter the bedside. Approximately 4 weeks ago patient was sent to [facility] where patient was found to have discitis in the lumbar area. Patient got surgery for the same and rods reported the spine. Patient did come back to rehab. Further change in mental status patient is sent back to [facility] again. Patient had been septic. Is on IV Zosyn. Supposed to get a total of 6 weeks. Being followed by infectious disease. His started off with bedsores that has progressively gotten worse. Local wound care has continued. As a sacral decubiti this became larger patient sent back to the ER for further treatment. As per the granddaughter they'll prefer to have treatment done here and not cold to [place] if that can be avoided. At her baseline currently patient is able to walk about 10-15 steps with physical therapy. Patient has been getting IV antibiotics via PICC line. Consultation to ID and vascular for wound care was done. July 31: In bed. Granddaughter the bedside. Patient's son on the phone. That questions about surgery in the wound. Did direct him to infectious disease and vascular. I did get a call from patient's family doctor Dr. Mijares bedside and is requesting's another surgeon from Dr. Mullen and either Dr. Nguyen or Dr. Sierra. Spoke to Samaria the surgical CABIN CLEANER.. Dr. Nguyen's digital production manager been consulted for the same. Patient is on IV Unasyn and vancomycin. Eating well. Patient's colostomy is being scheduled. Patient herself does not want a coloscopy. But patient's son who is the POA wishes to proceed with the same. There is only very way the wound might heal. The wound is rather extensive Active Medications Acetaminophen (Acetaminophen Tab 500 Mg Tab) 500 mg PO Q6HR PRN PRN Reason: Fever and/ or Pain Last Admin: 07/31/23 11:57 Dose: 500 mg Hydrocodone Bitart/Acetaminophen (Hydrocodone/Apap 5-325mg 1 Each Tab) 1 each PO Q4HR PRN PRN Reason: Pain Ascorbic Acid (Ascorbic Acid 500 Mg Tab) 250 mg PO DAILY [facility] Last Admin: 07/31/23 08:17 Dose: 250 mg Benztropine Mesylate (Benztropine Mesylate 1 Mg Tab) 2 mg PO BID [facility] Last Admin: 07/31/23 21:03 Dose: 2 mg Cholecalciferol (Cholecalciferol 25 Mcg (1000 Iu) Tablet) 50 mcg PO DAILY [facility] Last Admin: 07/31/23 08:16 Dose: 50 mcg Dextrose/Water (Dextrose 50% Syringe 50 Ml) 25 ml IVP PER PROTOCOL PRN; Protocol PRN Reason: Hypoglycemia Dextrose/Water (Dextrose 50% Syringe 50 Ml) 50 ml IVP PER PROTOCOL PRN; Protocol PRN Reason: Hypoglycemia Dronabinol (Dronabinol 2.5 Mg Cap) 2.5 mg PO BID [facility] Last Admin: 07/31/23 21:03 Dose: 2.5 mg Famotidine (Famotidine 20 Mg Tab) 20 mg PO DAILY [facility] Last Admin: 07/31/23 08:13 Dose: 20 mg Ferrous Sulfate (Ferrous Sulfate 325 Mg Tab) 325 mg PO DAILY [facility] Last Admin: 07/31/23 08:11 Dose: 325 mg Gabapentin (Gabapentin 100 Mg Cap) 100 mg PO BID [facility] Last Admin: 07/31/23 21:04 Dose: 100 mg Haloperidol (Haloperidol 5 Mg Tab) 2.5 mg PO HS [facility] Last Admin: 07/31/23 21:04 Dose: 2.5 mg Sodium Chloride (Saline 0.9%) 1,000 mls @ 20 mls/hr IV .Q24H [facility] Last Admin: 07/31/23 21:04 Dose: Not Given Vancomycin HCl 1,500 mg/ (Sodium Chloride) 500 mls @ 167 mls/hr IVPB Q12HR [facility] Last Admin: 07/31/23 21:04 Dose: 167 mls/hr Ampicillin Sodium/Sulbactam (Sodium 3 gm/ Sodium Chloride) 100 mls @ 200 mls/hr IVPB Q6H [facility]; Protocol Last Admin: 07/31/23 16:21 Dose: 200 mls/hr Insulin Aspart (Insulin Aspart (Novolog) 100 Unit/Ml Vial) 0 unit SQ ACHS [facility]; Protocol Last Admin: 07/31/23 21:04 Dose: Not Given Lactulose (Lactulose 20 Gm/30 Ml Cup) 20 gm PO DAILY [facility] Last Admin: 07/31/23 08:19 Dose: Not Given Linagliptin (Linagliptin 5 Mg Tablet) 5 mg PO DAILY [facility] Last Admin: 07/31/23 08:13 Dose: 5 mg Magnesium Hydroxide (Magnesium Hydroxide 2,400 Mg/30 Ml Cup) 2,400 mg PO Q72H PRN PRN Reason: Constipation Metoprolol Tartrate (Metoprolol Tartrate 25 Mg Tab) 25 mg PO BID [facility] Last Admin: 07/31/23 21:04 Dose: 25 mg Multivitamins (Multivitamins, Thera 1 Each Tab) 1 each PO DAILY [facility] Last Admin: 07/31/23 08:13 Dose: 1 each Naloxone HCl (Naloxone 0.4 Mg/Ml 1 Ml Vial) 0.2 mg IV Q2M PRN PRN Reason: Opioid Reversal Ondansetron HCl (Ondansetron 4 Mg/2 Ml Vial) 4 mg IVP Q8HR PRN PRN Reason: Nausea And Vomiting Polyethylene Glycol (Polyethylene Glycol 3350 17 Gm Powd.Pack) 17 gm PO BID [facility] Last Admin: 07/31/23 21:04 Dose: 17 gm Senna/Docusate Sodium (Sennosides-Docusate Sodium 1 Each Tab) 1 each PO BID [facility] Admin: 07/31/23 21:04 Dose: 1 each Past medical history to include: Dementia, diabetes, hypertension, osteoarthritis,, bipolar, discitis-lumbar Social history: No smoking or alcohol history. Currently at rehab at [facility]. Patient's son Ar Ramírez is the POA. Physical examination: VITAL SIGNS: 97.6, 85, 17, 139/80, 100% room air GENERAL: Reclining in bed, comfortable EYES: Pupils equal. Conjunctiva normal. HEENT: External appearance of nose and ears normal, oral cavity grossly normal. NECK: JVD not raised; masses not palpable. HEART: First and second heart sounds are normal; no edema. LUNGS: Respiratory rate normal; clear to auscultation. ABDOMEN: Soft, nontender, liver spleen not palpable, no masses palpable. PSYCH: [Able to answer simple questions. Patient stating I do not want colostomy DERMATOLOGICAL: Large sacral decubitus ulcer down to the bone. Pictures and nursing chart MUSCULOSKELETAL:No Clubbing/cyanosis;muscles-grossly intact, OA INVESTIGATIONS, reviewed in the clinical context: July 30: White count 8.5 hemoglobin 8.4 platelets 477 potassium 4.1 BUN 5 creatinine 0.37 CRP 3.3 proBNP 3220 TSH 1.3 EKG tracing personally reviewed by me-normal sinus rhythm. Nonspecific ST-T wave changes. Assessment and plan: -Stage IV large sacral decubitus ulcer. Per ID patient was positive for Enterococcus faecalis and was getting IV Unasyn.: Worsening Consults vascular Dr. Cobb. ID Dr. Abreu. Dr. Mullen consulted for colostomy. Patient's son requesting another surgeon. Dr. Nguyen consulted on-call today -Chronic medical debility. At the baseline using a walker last few weeks. -Chronic constipation MiraLAX, senna plus, lactulose -Diabetes mellitus type 2 Januvia. Follow Accu-Cheks with sliding scale -Essential hypertension Lopressor 25 mg twice a day -Recent History of lumbar discitis. Patient had surgery for the same. received antibiotics. -Cognitive impairment -Full code -Ar FERRARA. Son Dr. Nguyen in no conservative to surgery. For diverting colostomy. Eliquis has been held.
[2023-08-01] MEDS: AMPICILLIN-SULBACTAM 3 GM in SODIUM CHLORIDE 0.9% 100 ML IVPB SCH ×5 (00:22→23:57)
[2023-08-01 05:49] LABS: Glucose,Whole Blood 129 mg/dL (70-110)
[2023-08-01] MEDS: INSULIN ASPART (NovoLOG) 100 UNIT/ML VIAL SQ SCH ×4 (05:50→21:33)
[2023-08-01 07:21] LABS: Anisocytosis Slight; Basophils # (A) 0.1 k/uL (0-0.2); Basophils % (A) 1 %; Eosinophils # (A) 0.2 k/uL (0-0.7); Eosinophils % (A) 2 %; Hypochromasia Marked; Lymphocytes # (A) 3.2 k/uL (1.0-4.8); Lymphocytes % (A) 27 %; MCH 29.8 pg (25.0-35.0); MCHC 30.9 g/dL (31.0-37.0); MCV 96.2 fL (80.0-100.0); Macrocytosis Slight; Monocytes # (A) 0.5 k/uL (0-1.0); Monocytes % (A) 5 %; Neutrophils # (A) 7.4 k/uL (1.3-7.7); Neutrophils % (A) 63 %; Platelet Count 432 k/uL (150-450); RDW 16.8 % (11.5-15.5); WBC 11.8 k/uL (3.8-10.6)
[2023-08-01 08:03] LABS: African American GFR (CKD) >90 (>60 ml/min/1.73 sqM); Anion Gap 7 mmol/L; Blood Urea Nitrogen 8 mg/dL (7-17); Calcium 8.3 mg/dL (8.4-10.2); Carbon Dioxide 23 mmol/L (22-30); Chloride 112 mmol/L (98-107); Glucose 139 mg/dL (74-99); Non-African American GFR(CKD) >90 (>60 ml/min/1.73 sqM); Potassium 3.4 mmol/L (3.5-5.1); Sodium 142 mmol/L (137-145)
[2023-08-01] MEDS: VANCOMYCIN 1,500 MG in SODIUM CHLORIDE 0.9% 500 ML 500 ML IVPB SCH ×2 (08:56→21:09)
[2023-08-01] MEDS: polyethylene glycoL 3350 17 GM POWD.PACK PO SCH ×2 (09:05→21:33)
[2023-08-01] MEDS: droNABinol 2.5 MG CAP PO SCH ×2 (09:05→21:33)
[2023-08-01] MEDS: ASCORBIC ACID 500 MG TAB PO SCH (09:06)
[2023-08-01] MEDS: MULTIVITAMINS, THERA 1 EACH TAB PO SCH (09:06)
[2023-08-01] MEDS: CHOLECALCIFEROL 25 MCG (1000 IU) TABLET PO SCH (09:06)
[2023-08-01] MEDS: LACTULOSE 20 GM/30 ML CUP PO SCH (09:07)
[2023-08-01] MEDS: LINAGLIPTIN 5 MG TABLET PO SCH (09:07)
[2023-08-01] MEDS: SENNOSIDES-DOCUSATE SODIUM 1 EACH TAB PO SCH ×2 (09:07→21:33)
[2023-08-01] MEDS: FAMOTIDINE 20 MG TAB PO SCH (09:07)
[2023-08-01] MEDS: METOPROLOL TARTRATE 25 MG TAB PO SCH ×2 (09:07→21:33)
[2023-08-01] MEDS: GABAPENTIN 100 MG CAP PO SCH ×2 (09:07→21:33)
[2023-08-01] MEDS: FERROUS SULFATE 325 MG TAB PO SCH (09:07)
[2023-08-01] MEDS: BENZTROPINE MESYLATE 1 MG TAB PO SCH ×2 (09:07→21:33)
[2023-08-01 11:44] LABS: Glucose,Whole Blood 115 mg/dL (70-110)
[2023-08-01] MEDS: ACETAMINOPHEN TAB 500 MG TAB PO PRN ×2 (12:59→19:46)
--- NOTE | 2023-08-01 14:06 | P.PN ---
Subjective Progress Note Date: 08/01/23 CHIEF COMPLAINT: Sacral decubitus ulcer HISTORY OF PRESENT ILLNESS: This is a 77 female with a known large sacral decubitus ulcer that has worsened over the last month. Patient is currently on antibiotics for possible sacral wound infection. She is a diabetic. Surgical service consulted for possible diverging colostomy. Afebrile. Mildly tachycardic. WBC elevated at 11.8 hgb 8.0 potassium 3.4 PHYSICAL EXAM: VITAL SIGNS: Reviewed GENERAL: Well-developed in no acute distress. HEENT: No sclera icterus. Extraocular movements grossly intact. Moist buccal mucosa. Head is atraumatic, normocephalic. Hears conversational speech. No nasal drainage. NECK: Supple without lymphadenopathy. CHEST: Non-labored respirations and equal bilateral excursions. CARDIOVASCULAR: Palpable 2+ radial pulses. ABDOMEN: Soft. Nondistended. Nontender. MUSCULOSKELETAL: No clubbing or cyanosis. NEUROLOGIC: No focal or lateralizing signs. Cranial nerves II through XII grossly intact. PSYCH: Awake and alert SKIN: Large Sacral decubitus ulcer with sloughing tissue. Tunneling noted at the distal point of the ulcer. ASSESSMENT: 1. Large, stage IV sacral decubitus ulcer 2. Chronic medical debility 3. Chronic constipation 4. History of diabetes 5. Recent history of lumbar discitis. Patient did require spinal surgery. PLAN: -Continue local wound -Continue antibiotics -Further recommendations forthcoming per surgeon Physician Car Distributor note has been reviewed by physician. Signing provider agrees with the documented findings, assessment, and plan of care. Objective - Vital Signs Vital signs: Vital Signs Temp 97.7 F 08/01/23 07:52 Pulse 119 H 08/01/23 07:52 Resp 15 08/01/23 07:52 BP 131/76 08/01/23 07:52 Pulse Ox 98 08/01/23 07:52 FiO2 Intake & Output 07/31/23 08/01/23 08/01/23 18:59 06:59 18:59 Output Total 1750 Balance -1750 Weight 79.832 kg Output: Urine 1750 Other: Voiding Method Indwelling Catheter Indwelling Catheter - Labs CBC & Chem 7: 08/01/23 07:06 08/01/23 07:06 Labs: Abnormal Lab Results - Last 24 Hours (Table) 07/31/23 08/01/23 08/01/23 Range/Units 16:46 05:47 07:06 WBC (3.8-10.6) k/uL RBC (3.80-5.40) m/uL Hgb (11.4-16.0) gm/dL Hct (34.0-46.0) % MCHC (31.0-37.0) g/dL RDW (11.5-15.5) % Potassium (3.5-5.1) mmol/L Chloride (98-107) mmol/L Creatinine (0.52-1.04) mg/dL Glucose (74-99) mg/dL POC Glucose (mg/dL) 209 H 129 H (70-110) mg/dL Hemoglobin A1c 6.7 H (<=6.0) % Calcium (8.4-10.2) mg/dL 08/01/23 08/01/23 08/01/23 Range/Units 07:06 07:06 11:43 WBC 11.8 H (3.8-10.6) k/uL RBC 2.70 L (3.80-5.40) m/uL Hgb 8.0 L (11.4-16.0) gm/dL Hct 26.0 L (34.0-46.0) % MCHC 30.9 L (31.0-37.0) g/dL RDW 16.8 H (11.5-15.5) % Potassium 3.4 L (3.5-5.1) mmol/L Chloride 112 H (98-107) mmol/L Creatinine 0.47 L (0.52-1.04) mg/dL Glucose 139 H (74-99) mg/dL POC Glucose (mg/dL) 115 H (70-110) mg/dL Hemoglobin A1c (<=6.0) % Calcium 8.3 L (8.4-10.2) mg/dL Microbiology - Last 24 Hours (Table) 07/29/23 19:22 Blood Culture - Preliminary Blood 07/29/23 19:22 Blood Culture - Preliminary Blood 07/29/23 17:58 Gram Stain - Preliminary Buttock Wound Culture - Preliminary Group D Enterococcus Yeast
--- NOTE | 2023-08-01 14:36 | P.PN ---
Subjective Progress Note Date: 08/01/23 Principal diagnosis: Infected sacral pressure ulcer Patient is a 77-year-old -[place] female with a past medical history significant for hypertension diabetes mellitus dementia CVA TIA patient recently did have 2 stay at [facility] initial 1 was for possible discitis and this patient apparently did have a E. coli infection and was advised a 6-week course of IV Rocephin subsequently readmitted to the [facility] with worsening wound to the sacral area s/p debridement culture positive for Enterococcus faecalis antibiotic was switched over to Unasyn 3 g every 6 hours, patient has not been brought to [facility] ER with worsening sacral wound. On today's evaluation that is 08/01/2023, the patient denies any fever or any chills , the patient is breathing comfortably on room air and no need for supplemental oxygen, the patient did answer some simple questions and no chest pain or cough overall oral intake has improved per the granddaughter at the bedside Patient did have white count is mildly elevated at 11.8, creatinine is 0.47, local culture growing enterococcus and blood cultures are pending Objective - Vital Signs Vital signs: Vital Signs Temp 97.7 F 08/01/23 07:52 Pulse 119 H 08/01/23 07:52 Resp 15 08/01/23 07:52 BP 131/76 08/01/23 07:52 Pulse Ox 98 08/01/23 07:52 FiO2 Intake & Output 07/31/23 08/01/23 08/01/23 18:59 06:59 18:59 Output Total 1750 Balance -1750 Weight 79.832 kg Output: Urine 1750 Other: Voiding Method Indwelling Catheter Indwelling Catheter - Exam GENERAL DESCRIPTION: An elderly female lying in bed in no distress RESPIRATORY SYSTEM: Unlabored breathing , clear to auscultation anteriorly HEART: S1 S2 regular rate and rhythm , ABDOMEN: Soft , no tenderness EXTREMITIES: No edema feet Patient did have a stage IV sacral pressure ulcer with some slough tissue - Labs CBC & Chem 7: 08/01/23 07:06 08/01/23 07:06 Labs: Abnormal Lab Results - Last 24 Hours (Table) 07/31/23 08/01/23 08/01/23 Range/Units 16:46 05:47 07:06 WBC (3.8-10.6) k/uL RBC (3.80-5.40) m/uL Hgb (11.4-16.0) gm/dL Hct (34.0-46.0) % MCHC (31.0-37.0) g/dL RDW (11.5-15.5) % Potassium (3.5-5.1) mmol/L Chloride (98-107) mmol/L Creatinine (0.52-1.04) mg/dL Glucose (74-99) mg/dL POC Glucose (mg/dL) 209 H 129 H (70-110) mg/dL Hemoglobin A1c 6.7 H (<=6.0) % Calcium (8.4-10.2) mg/dL 08/01/23 08/01/23 08/01/23 Range/Units 07:06 07:06 11:43 WBC 11.8 H (3.8-10.6) k/uL RBC 2.70 L (3.80-5.40) m/uL Hgb 8.0 L (11.4-16.0) gm/dL Hct 26.0 L (34.0-46.0) % MCHC 30.9 L (31.0-37.0) g/dL RDW 16.8 H (11.5-15.5) % Potassium 3.4 L (3.5-5.1) mmol/L Chloride 112 H (98-107) mmol/L Creatinine 0.47 L (0.52-1.04) mg/dL Glucose 139 H (74-99) mg/dL POC Glucose (mg/dL) 115 H (70-110) mg/dL Hemoglobin A1c (<=6.0) % Calcium 8.3 L (8.4-10.2) mg/dL Microbiology - Last 24 Hours (Table) 07/29/23 19:22 Blood Culture - Preliminary Blood 07/29/23 19:22 Blood Culture - Preliminary Blood 07/29/23 17:58 Gram Stain - Preliminary Buttock Wound Culture - Preliminary Group D Enterococcus Yeast Assessment and Plan (1) Infected pressure ulcer Current Visit: Yes Status: Acute Code(s): L89.90 - PRESSURE ULCER OF UNSPECIFIED SITE, UNSPECIFIED STAGE; L08.9 - LOCAL INFECTION OF THE SKIN AND SUBCUTANEOUS TISSUE, UNSP SNOMED Code(s): 033285280 (2) Sacral decubitus ulcer Current Visit: Yes Status: Acute Code(s): L89.159 - PRESSURE ULCER OF SACRAL REGION, UNSPECIFIED STAGE SNOMED Code(s): 234136764 Plan: 1patient being brought into the hospital with a worsening wound to the sacral area which apparently was recently acquired during one of her hospital stay with a recent admission at [facility] initial notes for discitis subsequently for worsening wound infection that was debrided and culture positive for Enterococcus faecalis patient was getting Unasyn now being admitted to the hospital with worsening wound patient did have significant slough tissue and would require surgical debridement and deep culture and may need diverting colostomy to prevent recurrent stool contamination of her sacral wound and wound VAC placement, this has been discussed in detail with the son on the phone 2-General surgery has been consulted and planning for possible diverting colostomy and debridement 3-patient to continue with the vancomycin along with Unasyn while waiting for the culture to be finalize and monitor clinical course closely Care was discussed in detail with the granddaughter at the bedside Dictation was produced using [employer] dictation software. please excuse any grammatical, word or spelling errors. Time with Patient: Less than 30
[2023-08-01 16:51] LABS: Glucose,Whole Blood 160 mg/dL (70-110)
[2023-08-01 19:58] LABS: Glucose,Whole Blood 129 mg/dL (70-110)
[2023-08-01] MEDS: SODIUM CHLORIDE 0.9% 1,000 ML IV SCH (21:31)
[2023-08-01] MEDS: haloperidoL 5 MG TAB PO SCH (21:33)
--- NOTE | 2023-08-01 22:37 | P.GSCN ---
History of Present Illness Consult date: 08/01/23 History of present illness: CHIEF COMPLAINT: Nonhealing sacral decubitus ulcer HISTORY OF PRESENT ILLNESS: The patient is a 77 year old female who was in rehab at [facility] after undergoing major back surgery at outside institution [facility] 2-3 weeks ago. Patient developed severe decubiti ulcers which are now chronically infected from which she she presented with sepsis. As a result, consultation with infectious disease provider was maintained and requested for diverting colostomy. I am asked as a second opinion for surgical intervention. I personally had discussion with the patient's son Dr. Ramírez regarding her care for which he agrees and wishes to proceed with surgical intervention for colostomy. Patient denies active abdominal pain. No current fevers. WBC elevated at 11.6. Son reports patient did well after her surgery without cardiac event. PAST MEDICAL HISTORY: See list and reviewed PAST SURGICAL HISTORY: See list and reviewed MEDICATIONS: See list and reviewed ALLERGIES: See list and reviewed SOCIAL HISTORY: See list and reviewed FAMILY HISTORY: See list and reviewed REVIEW OF ORGAN SYSTEMS: CONSTITUTIONAL: Low-grade 99.0 fevers. No chills. EYES: Denies any trouble with vision. No glasses. HEENT: No difficulties with hearing. No nosebleeds. No difficulty swallowing. RESPIRATORY: Denies pneumonia. Denies any troubles with breathing or dyspnea on exertion. CARDIOVASCULAR: Denies any chest pain, palpitations, or recent heart attacks. Has hypertensive heart disease. GASTROINTESTINAL: Denies fatty food intolerance. Denies change in bowel habits and gas bloat. GENITOURINARY: Denies any blood in urine or increased urinary frequency. NEUROLOGICAL: Denies any numbness or tingling along the distal extremities. No seizure disorders or headaches. Recent stroke with sequela of speech impairment. MUSCULOSKELETAL: Denies any back pain, stiffness or joint arthritis. SKIN: No current skin cancer. No rash. PSYCHIATRIC: Denies current depression or suicidal thoughts. History of dementia. Has anxiety and depressive disorder. Has bipolar disorder. ENDOCRINE: Denies current thyroid disorders. Insulin-dependent diabetes type 2. HEME/LYMPHATIC: Denies any lumps and bumps around the neck. No recent deep venous thrombosis. On chronic blood thinners. ALLERGY/IMMUNOLOGY: No immunoglobulin therapy. No immune deficiencies. BREAST: Denies current breast lumps, pain or nipple discharge. PHYSICAL EXAM: VITALS: Reviewed CONSTITUTIONAL: Well developed and in no acute distress. EYES: Conjuctivae without sclera icterus. Extraocular movements grossly intact. HEAD, EARS, NOSE, THROAT: Moist buccal mucosa. Head is atraumatic, normocephalic. Hears conversational speech. No nasal drainage. NECK: Supple. No JV distention. No thyroidomegaly. RESPIRATORY: Non-labored respirations and equal bilateral excursions. No gross wheezes. CARDIOVASCULAR: Palpable 2+ radial pulses. ABDOMEN: No large abdominal scars. Nontender. LYMPH: No neck lymphadenopathy. MUSCULOSKELETAL: No clubbing cyanosis or edema SKIN: Sacral dressing intact. NEUROLOGIC: Cranial nerves II through XII grossly intact. No focal or lateralizing signs. PSYCH: Flat affect. Alert to self. CLINCAL LABS: Reviewed. WBC elevated at 11.6. Anemia 8.0. ECHO: Reviewed from October 2022 demonstrates ejection fraction 50-55%. ASSESSMENT: 1. Stage IV sacral decubitus ulcer 2. Sepsis due to sacral decubitus ulcer 3. History of stroke with sequela speech impairment 4. Anemia 5. Hypertensive heart disease PLAN: 1. Recommend cardiac risk assessment she has recent tachycardia recent surgery 2. She is elevated risk for bleeding including complications with blood thinners. 3. Recommend diverting colostomy 4. Recommend surgical aspiration and debridement 5. All questions addressed with patient and family 6. Recommend Augmentin nutrition ADVANCE DIRECTIVE: Thank you for this kind consultation. Past Medical History Past Medical History: CVA/TIA, Dementia, Diabetes Mellitus, Hypertension, Osteoarthritis (OA) Additional Past Medical History / Comment(s): Pt states she is on an antibiotic for ear infection/throat infection at this time, TIA which affected speech, pt denies HTN but it is documented in past medical hx, diet controlled diabetes History of Any Multi-Drug Resistant Organisms: None Reported Past Surgical History: Orthopedic Surgery Additional Past Surgical History / Comment(s): I&D tooth abscess, left trigger finger surgery Past Anesthesia/Blood Transfusion Reactions: No Reported Reaction Past Psychological History: Anxiety, Bipolar, Depression Smoking Status: Never smoker Past Alcohol Use History: None Reported Past Drug Use History: None Reported - Past Family History Father Family Medical History: No Reported History Mother Family Medical History: No Reported History Medications and Allergies Home Medications Medication Instructions Recorded Confirmed Type 0.9 % Sodium Chloride [Sodium 10 ml IV Q6H 07/29/23 07/29/23 History Chloride Flush] Ampicillin-Sulbactam [Unasyn 3 gm 3 gm IVPB Q6HR 07/29/23 07/29/23 History vial] Apixaban [Eliquis] 5 mg PO BID 07/29/23 07/29/23 History Ascorbic Acid [Vitamin C] 250 mg PO DAILY 07/29/23 07/29/23 History Benztropine Mesylate [Cogentin] 2 mg PO BID 07/29/23 07/29/23 History Cholecalciferol [Vitamin D3 (25 50 mcg PO DAILY 07/29/23 07/29/23 History Mcg = 1000 Iu)] Famotidine [Pepcid] 20 mg PO DAILY 07/29/23 07/29/23 History Ferrous Sulfate [Iron] 325 mg PO DAILY 07/29/23 07/29/23 History Gabapentin [Neurontin] 100 mg PO BID 07/29/23 07/29/23 History HYDROcodone/APAP 5-325MG [[place] 1 tab PO Q4HR PRN 07/29/23 07/29/23 History 5-325] Insulin Lispro [humaLOG Kwikpen] See Protocol SQ ACHS 07/29/23 07/29/23 History Lactulose 20 gm PO DAILY 07/29/23 07/29/23 History Magnesium Hydroxide [Milk of 2,400 mg PO Q72H PRN 07/29/23 07/29/23 History Magnesia] Metoprolol Tartrate [Lopressor] 25 mg PO BID 07/29/23 07/29/23 History Multivitamins, Thera [Multivitamin 1 tab PO DAILY 07/29/23 07/29/23 History (formulary)] Sennosides/Docusate Sodium [Senna 1 tab PO BID 07/29/23 07/29/23 History Plus 8.6-50 mg Tablet] droNABinol [Marinol] 2.5 mg PO BID 07/29/23 07/29/23 History haloperidoL [Haldol] 2.5 mg PO HS 07/29/23 07/29/23 History polyethylene glycoL 3350 [Miralax] 17 gm PO BID 07/29/23 07/29/23 History sitaGLIPtin [Januvia] 50 mg PO DAILY 07/29/23 07/29/23 History Allergies Allergy/AdvReac Type Severity Reaction Status Date / Time metformin Allergy Unknown Verified 07/29/23 18:14 Sulfa (Sulfonamide Allergy Unknown Verified 07/29/23 18:14 Antibiotics) Surgical - Exam Vital Signs Temp Pulse Resp BP Pulse Ox 98.2 F 97 16 174/81 98 07/29/23 15:12 07/29/23 15:12 07/29/23 15:12 07/29/23 15:12 07/29/23 15:12 Results - Labs 08/01/23 07:06 08/01/23 07:06 Abnormal Lab Results - Last 24 Hours (Table) 08/01/23 08/01/23 08/01/23 Range/Units 05:47 07:06 07:06 WBC (3.8-10.6) k/uL RBC (3.80-5.40) m/uL Hgb (11.4-16.0) gm/dL Hct (34.0-46.0) % MCHC (31.0-37.0) g/dL RDW (11.5-15.5) % Potassium 3.4 L (3.5-5.1) mmol/L Chloride 112 H (98-107) mmol/L Creatinine 0.47 L (0.52-1.04) mg/dL Glucose 139 H (74-99) mg/dL POC Glucose (mg/dL) 129 H (70-110) mg/dL Hemoglobin A1c 6.7 H (<=6.0) % Calcium 8.3 L (8.4-10.2) mg/dL 08/01/23 08/01/23 08/01/23 Range/Units 07:06 11:43 16:50 WBC 11.8 H (3.8-10.6) k/uL RBC 2.70 L (3.80-5.40) m/uL Hgb 8.0 L (11.4-16.0) gm/dL Hct 26.0 L (34.0-46.0) % MCHC 30.9 L (31.0-37.0) g/dL RDW 16.8 H (11.5-15.5) % Potassium (3.5-5.1) mmol/L Chloride (98-107) mmol/L Creatinine (0.52-1.04) mg/dL Glucose (74-99) mg/dL POC Glucose (mg/dL) 115 H 160 H (70-110) mg/dL Hemoglobin A1c (<=6.0) % Calcium (8.4-10.2) mg/dL 08/01/23 Range/Units 19:56 WBC (3.8-10.6) k/uL RBC (3.80-5.40) m/uL Hgb (11.4-16.0) gm/dL Hct (34.0-46.0) % MCHC (31.0-37.0) g/dL RDW (11.5-15.5) % Potassium (3.5-5.1) mmol/L Chloride (98-107) mmol/L Creatinine (0.52-1.04) mg/dL Glucose (74-99) mg/dL POC Glucose (mg/dL) 129 H (70-110) mg/dL Hemoglobin A1c (<=6.0) % Calcium (8.4-10.2) mg/dL Microbiology - Last 24 Hours (Table) 07/29/23 19:22 Blood Culture - Preliminary Blood 07/29/23 19:22 Blood Culture - Preliminary Blood 07/29/23 17:58 Gram Stain - Preliminary Buttock Wound Culture - Preliminary Group D Enterococcus Yeast Diabetes panel 08/01/23 08/01/23 Range/Units 07:06 07:06 Sodium 142 (137-145) mmol/L Potassium 3.4 L (3.5-5.1) mmol/L Chloride 112 H (98-107) mmol/L Carbon Dioxide 23 (22-30) mmol/L BUN 8 (7-17) mg/dL Creatinine 0.47 L (0.52-1.04) mg/dL Glucose 139 H (74-99) mg/dL Hemoglobin A1c 6.7 H (<=6.0) % Calcium 8.3 L (8.4-10.2) mg/dL Calcium panel 08/01/23 Range/Units 07:06 Calcium 8.3 L (8.4-10.2) mg/dL Pituitary panel 08/01/23 Range/Units 07:06 Sodium 142 (137-145) mmol/L Potassium 3.4 L (3.5-5.1) mmol/L Chloride 112 H (98-107) mmol/L Carbon Dioxide 23 (22-30) mmol/L BUN 8 (7-17) mg/dL Creatinine 0.47 L (0.52-1.04) mg/dL Glucose 139 H (74-99) mg/dL Calcium 8.3 L (8.4-10.2) mg/dL Adrenal panel 08/01/23 Range/Units 07:06 Sodium 142 (137-145) mmol/L Potassium 3.4 L (3.5-5.1) mmol/L Chloride 112 H (98-107) mmol/L Carbon Dioxide 23 (22-30) mmol/L BUN 8 (7-17) mg/dL Creatinine 0.47 L (0.52-1.04) mg/dL Glucose 139 H (74-99) mg/dL Calcium 8.3 L (8.4-10.2) mg/dL
--- NOTE | 2023-08-01 22:38 | P.PN ---
Progress Note - Text Progress Note Date: 08/01/23 Chief Complaint: Decubital ulcer This is a 77-year-old patient, at rehab at [facility]. Being followed by Dr. Mijares. Chronic stable medical conditions includes dementia, diabetes, hypertension, osteoarthritis, bipolar. Most of the history is obtained by the granddaughter the bedside. Approximately 4 weeks ago patient was sent to [facility] where patient was found to have discitis in the lumbar area. Patient got surgery for the same and rods reported the spine. Patient did come back to rehab. Further change in mental status patient is sent back to [facility] again. Patient had been septic. Is on IV Zosyn. Supposed to get a total of 6 weeks. Being followed by infectious disease. His started off with bedsores that has progressively gotten worse. Local wound care has continued. As a sacral decubiti this became larger patient sent back to the ER for further treatment. As per the granddaughter they'll prefer to have treatment done here and not cold to [place] if that can be avoided. At her baseline currently patient is able to walk about 10-15 steps with physical therapy. Patient has been getting IV antibiotics via PICC line. Consultation to ID and vascular for wound care was done. July 31: In bed. Granddaughter the bedside. Patient's son on the phone. That questions about surgery in the wound. Did direct him to infectious disease and vascular. I did get a call from patient's family doctor Dr. Mijares bedside and is requesting's another surgeon from Dr. Mullen and either Dr. Nguyen or Dr. Sierra. Spoke to Samaria the surgical BEATER WORKER HELPER.. Dr. Nguyen's cardiopulmonary supervisor been consulted for the same. Patient is on IV Unasyn and vancomycin. Eating well. Patient's colostomy is being scheduled. Patient herself does not want a coloscopy. But patient's son who is the POA wishes to proceed with the same. There is only very way the wound might heal. The wound is rather extensive August 01: Patient is seen by Dr. Nguyen from general surgery. She spoke to me. Patient being scheduled for surgery on Saturday. She spoke to the patient's son. We'll start the patient and subcu Lovenox 80 mg every 12. Last dose will be on Saturday evening been held. Other medications to continue including antibiotics per Dr. Abreu. Patient eating well. Discussed with patient granddaughter the bedside. Active Medications Acetaminophen (Acetaminophen Tab 500 Mg Tab) 500 mg PO Q6HR PRN PRN Reason: Fever and/ or Pain Last Admin: 08/01/23 19:46 Dose: 500 mg Hydrocodone Bitart/Acetaminophen (Hydrocodone/Apap 5-325mg 1 Each Tab) 1 each PO Q4HR PRN PRN Reason: Pain Ascorbic Acid (Ascorbic Acid 500 Mg Tab) 250 mg PO DAILY [facility] Last Admin: 08/01/23 09:06 Dose: 250 mg Benztropine Mesylate (Benztropine Mesylate 1 Mg Tab) 2 mg PO BID [facility] Last Admin: 08/01/23 21:33 Dose: 2 mg Cholecalciferol (Cholecalciferol 25 Mcg (1000 Iu) Tablet) 50 mcg PO DAILY [facility] Last Admin: 08/01/23 09:06 Dose: 50 mcg Dextrose/Water (Dextrose 50% Syringe 50 Ml) 25 ml IVP PER PROTOCOL PRN; Protocol PRN Reason: Hypoglycemia Dextrose/Water (Dextrose 50% Syringe 50 Ml) 50 ml IVP PER PROTOCOL PRN; Protocol PRN Reason: Hypoglycemia Dronabinol (Dronabinol 2.5 Mg Cap) 2.5 mg PO BID [facility] Last Admin: 08/01/23 21:33 Dose: 2.5 mg Enoxaparin Sodium (Enoxaparin 80 Mg/0.8 Ml Syringe) 80 mg SQ Q12HR [facility] Stop: 08/04/23 23:59 Famotidine (Famotidine 20 Mg Tab) 20 mg PO DAILY [facility] Last Admin: 08/01/23 09:07 Dose: 20 mg Ferrous Sulfate (Ferrous Sulfate 325 Mg Tab) 325 mg PO DAILY [facility] Last Admin: 08/01/23 09:07 Dose: 325 mg Gabapentin (Gabapentin 100 Mg Cap) 100 mg PO BID [facility] Last Admin: 08/01/23 21:33 Dose: 100 mg Haloperidol (Haloperidol 5 Mg Tab) 2.5 mg PO HS [facility] Last Admin: 08/01/23 21:33 Dose: 2.5 mg Sodium Chloride (Saline 0.9%) 1,000 mls @ 20 mls/hr IV .Q24H [facility] Last Admin: 08/01/23 21:31 Dose: Not Given Vancomycin HCl 1,500 mg/ (Sodium Chloride) 500 mls @ 167 mls/hr IVPB Q12HR [facility] Last Admin: 08/01/23 21:09 Dose: 167 mls/hr Ampicillin Sodium/Sulbactam (Sodium 3 gm/ Sodium Chloride) 100 mls @ 200 mls/hr IVPB Q6H [facility]; Protocol Last Admin: 08/01/23 17:22 Dose: 200 mls/hr Insulin Aspart (Insulin Aspart (Novolog) 100 Unit/Ml Vial) 0 unit SQ ACHS [facility]; Protocol Last Admin: 08/01/23 21:33 Dose: Not Given Lactulose (Lactulose 20 Gm/30 Ml Cup) 20 gm PO DAILY [facility] Last Admin: 08/01/23 09:07 Dose: 20 gm Linagliptin (Linagliptin 5 Mg Tablet) 5 mg PO DAILY [facility] Last Admin: 08/01/23 09:07 Dose: 5 mg Magnesium Hydroxide (Magnesium Hydroxide 2,400 Mg/30 Ml Cup) 2,400 mg PO Q72H PRN PRN Reason: Constipation Metoprolol Tartrate (Metoprolol Tartrate 25 Mg Tab) 25 mg PO BID [facility] Last Admin: 08/01/23 21:33 Dose: 25 mg Multivitamins (Multivitamins, Thera 1 Each Tab) 1 each PO DAILY [facility] Last Admin: 08/01/23 09:06 Dose: 1 each Naloxone HCl (Naloxone 0.4 Mg/Ml 1 Ml Vial) 0.2 mg IV Q2M PRN PRN Reason: Opioid Reversal Ondansetron HCl (Ondansetron 4 Mg/2 Ml Vial) 4 mg IVP Q8HR PRN PRN Reason: Nausea And Vomiting Polyethylene Glycol (Polyethylene Glycol 3350 17 Gm Powd.Pack) 17 gm PO BID [facility] Last Admin: 08/01/23 21:33 Dose: 17 gm Senna/Docusate Sodium (Sennosides-Docusate Sodium 1 Each Tab) 1 each PO BID [facility] Last Admin: 08/01/23 21:33 Dose: 1 each Past medical history to include: Dementia, diabetes, hypertension, osteoarthritis,, bipolar, discitis-lumbar Social history: No smoking or alcohol history. Currently at rehab at [facility]. Patient's son Ar Ramírez is the POA. Physical examination: VITAL SIGNS: 98.4, 120, 133/76, 98% room air GENERAL: Reclining in bed, comfortable EYES: Pupils equal. Conjunctiva normal. HEENT: External appearance of nose and ears normal, oral cavity grossly normal. NECK: JVD not raised; masses not palpable. HEART: First and second heart sounds are normal; no edema. LUNGS: Respiratory rate normal; clear to auscultation. ABDOMEN: Soft, nontender, liver spleen not palpable, no masses palpable. PSYCH: [Able to answer simple questions. Patient stating I do not want colostomy DERMATOLOGICAL: Large sacral decubitus ulcer down to the bone. Pictures and nursing chart MUSCULOSKELETAL:No Clubbing/cyanosis;muscles-grossly intact, OA INVESTIGATIONS, reviewed in the clinical context: August 01: White count 11.8 hemoglobin 8 potassium 3.4 creatinine 0.47 July 30: White count 8.5 hemoglobin 8.4 platelets 477 potassium 4.1 BUN 5 creatinine 0.37 CRP 3.3 proBNP 3220 TSH 1.3 EKG tracing personally reviewed by me-normal sinus rhythm. Nonspecific ST-T wave changes. Assessment and plan: -Stage IV large sacral decubitus ulcer. Per ID patient was positive for Enterococcus faecalis and was getting IV Unasyn.: Not improving Consults vascular Dr. Cobb. ID Dr. Abreu. Dr. Nguyen from general surgery: Diverting colostomy to prevent contamination of sacral wound scheduled for Saturday -Chronic medical debility. At the baseline using a walker last few weeks. -Chronic constipation MiraLAX, senna plus, lactulose -Diabetes mellitus type 2 . Follow Accu-Cheks with sliding scale -Essential hypertension Lopressor 25 mg twice a day -Recent History of lumbar discitis. Patient had surgery for the same. received antibiotics. -Cognitive impairment -Full code -Ar FLANAGAN. Son Patient being scheduled for diverting colostomy for Saturday. Start subcu Lovenox in place of eliquis.. Last dose on Saturday.
[2023-08-01] MEDS ORDERED: ENOXAPARIN 80 MG/0.8 ML SYRINGE SQ SCH (22:45)
[2023-08-02] MEDS: ACETAMINOPHEN TAB 500 MG TAB PO PRN (04:41)
[2023-08-02] MEDS: AMPICILLIN-SULBACTAM 3 GM in SODIUM CHLORIDE 0.9% 100 ML IVPB SCH ×4 (04:41→23:46)
[2023-08-02 05:57] LABS: Glucose,Whole Blood 109 mg/dL (70-110)
[2023-08-02] MEDS: INSULIN ASPART (NovoLOG) 100 UNIT/ML VIAL SQ SCH ×4 (06:02→21:03)
[2023-08-02 08:10] LABS: African American GFR (CKD) >90 (>60 ml/min/1.73 sqM); Non-African American GFR(CKD) >90 (>60 ml/min/1.73 sqM)
[2023-08-02] MEDS: VANCOMYCIN 1,500 MG in SODIUM CHLORIDE 0.9% 500 ML 500 ML IVPB SCH ×2 (09:35→22:30)
[2023-08-02] MEDS: polyethylene glycoL 3350 17 GM POWD.PACK PO SCH ×2 (09:37→21:35)
[2023-08-02] MEDS: GABAPENTIN 100 MG CAP PO SCH ×2 (09:38→21:33)
[2023-08-02] MEDS: droNABinol 2.5 MG CAP PO SCH ×2 (09:39→21:33)
[2023-08-02] MEDS: LINAGLIPTIN 5 MG TABLET PO SCH (09:40)
[2023-08-02] MEDS: CHOLECALCIFEROL 25 MCG (1000 IU) TABLET PO SCH (09:41)
[2023-08-02] MEDS: FERROUS SULFATE 325 MG TAB PO SCH (09:42)
[2023-08-02] MEDS: FAMOTIDINE 20 MG TAB PO SCH (09:42)
[2023-08-02] MEDS: MULTIVITAMINS, THERA 1 EACH TAB PO SCH (09:43)
[2023-08-02] MEDS: ASCORBIC ACID 500 MG TAB PO SCH (09:43)
[2023-08-02] MEDS: LACTULOSE 20 GM/30 ML CUP PO SCH ×2 (09:45→21:34)
[2023-08-02] MEDS: SENNOSIDES-DOCUSATE SODIUM 1 EACH TAB PO SCH ×2 (09:45→21:33)
[2023-08-02] MEDS: BENZTROPINE MESYLATE 1 MG TAB PO SCH ×2 (09:46→21:33)
[2023-08-02] MEDS: ENOXAPARIN 80 MG/0.8 ML SYRINGE SQ SCH ×2 (09:47→21:04)
--- NOTE | 2023-08-02 09:55 | P.CRDCN ---
History of Present Illness Consult date: 08/02/23 Reason for Consult (text): Cardiac risk assessment History of present illness: History of present illness: This is a 77 year old black woman with no previous cardiac history does not follow with a confidential investigator. She has a past medical history of DVT on eliquis, hypertension, diabetes mellitus, dementia, CVA or TIA. Patient recently had 2 admissions at [facility]. Initial one was for possible discitis and also E. coli infection for which she was ordered for 6 weeks of IV antibiotics. Subsequently she was readmitted to [facility] with worsening wound to the sacral area status post debridement. Patient is now at [facility]. Patient was sent into the emergency center due to wound evaluation. It has been decided that patient would be benefited by having a diverting colostomy to aid in healing of her sacral decubitus ulcer. We have been asked to evaluate patient for cardiac risk assessment. Patient states to us that she does not wish to have surgery and has not given permission for this surgery. She denies having any history of cardiac problems in the past. She does not follow with a confidential investigator. She denies having any chest pain, chest pressure, no shortness of breath no palpitations. Patient denies having dizziness or syncopal episodes. No nausea or vomiting. No recent CVA and no seizure disorder. She denies smoking. EKG #1 sinus rhythm at 111 bpm, #2 sinus rhythm at 119 bpm WBC 11.8, hemoglobin 8, platelet count 432. Sodium 132, potassium 3.4, chloride 112, CO2 23, creatinine 0.47. Blood sugar 139. Hemoglobin A1c 6.7. Home cardiac medications: Eliquis 5 mg twice daily, Lopressor 25 mg twice daily. Echocardiogram performed 10/2022: Normal left ventricular size and systolic function. Moderate mitral and tricuspid regurgitation with normal pulmonary pressure. Highly mobile intra-atrial septum. Review Of Systems: At the time of my evaluation: Constitutional: No fever, no chills. EENT: No headache. No dizziness. Lungs: No shortness of breath, cough, no sputum production. No wheezing. Cardiovascular: No chest pain, no lower extremity edema. No palpitations. No paroxysmal nocturnal dyspnea. No orthopnea. No lightheadedness or dizziness. No syncopal episodes. Abdominal: No abdominal pain. No nausea, vomiting. No diarrhea. No constipation. No bloody or tarry stools. Musculoskeletal: No myalgias. No muscle weakness, no frequent falls. No back pain. Integumentary: + wounds. No rash. No unusual bruising. Neurologic: No aphasia. No facial droop. No change in mentation. Physical examination: Gen: This is a 77-year-old black female resting bed and appears to be comfortable and in no acute distress. VS: reviewed HEENT: Head is atraumatic, normocephalic. Pupils equal, round. Sclerae is anicteric. NECK: Supple. No JVD. LUNGS: Clear to auscultation. No wheezes or rhonchi. No intercostal retractions. HEART: Regular rate and rhythm. Soft systolic murmur. ABDOMEN: Soft No tenderness. EXTREMITIES: No pedal edema. No calf tenderness. NEUROLOGICAL: Patient is awake, alert. Assessment: Sacral decubitus ulcer Sinus tachycardia History of DVT Hypertension Diabetes Dementia Plan: Increase Lopressor 25 mg frequency of 3 times daily Eliquis is on hold for surgical intervention No need to repeat echocardiogram Patient is cleared for surgery on Saturday. She is at intermediate risk for complications. There is no signs of ischemic heart disease or heart failure at this time. Further recommendations to follow based upon clinical course Thank you kindly for this consultation. Nurse practitioner note has been reviewed, I agree with documented findings and plan of care. Patient was seen and examined. Past Medical History Past Medical History: CVA/TIA, Dementia, Diabetes Mellitus, Hypertension, Osteoarthritis (OA) Additional Past Medical History / Comment(s): Pt states she is on an antibiotic for ear infection/throat infection at this time, TIA which affected speech, pt denies HTN but it is documented in past medical hx, diet controlled diabetes History of Any Multi-Drug Resistant Organisms: None Reported Past Surgical History: Orthopedic Surgery Additional Past Surgical History / Comment(s): I&D tooth abscess, left trigger finger surgery Past Anesthesia/Blood Transfusion Reactions: No Reported Reaction Past Psychological History: Anxiety, Bipolar, Depression Smoking Status: Never smoker Past Alcohol Use History: None Reported Past Drug Use History: None Reported - Past Family History Father Family Medical History: No Reported History Mother Family Medical History: No Reported History Medications and Allergies Home Medications Medication Instructions Recorded Confirmed Type 0.9 % Sodium Chloride [Sodium 10 ml IV Q6H 07/29/23 07/29/23 History Chloride Flush] Ampicillin-Sulbactam [Unasyn 3 gm 3 gm IVPB Q6HR 07/29/23 07/29/23 History vial] Apixaban [Eliquis] 5 mg PO BID 07/29/23 07/29/23 History Ascorbic Acid [Vitamin C] 250 mg PO DAILY 07/29/23 07/29/23 History Benztropine Mesylate [Cogentin] 2 mg PO BID 07/29/23 07/29/23 History Cholecalciferol [Vitamin D3 (25 50 mcg PO DAILY 07/29/23 07/29/23 History Mcg = 1000 Iu)] Famotidine [Pepcid] 20 mg PO DAILY 07/29/23 07/29/23 History Ferrous Sulfate [Iron] 325 mg PO DAILY 07/29/23 07/29/23 History Gabapentin [Neurontin] 100 mg PO BID 07/29/23 07/29/23 History HYDROcodone/APAP 5-325MG [Snook 1 tab PO Q4HR PRN 07/29/23 07/29/23 History 5-325] Insulin Lispro [humaLOG Kwikpen] See Protocol SQ ACHS 07/29/23 07/29/23 History Lactulose 20 gm PO DAILY 07/29/23 07/29/23 History Magnesium Hydroxide [Milk of 2,400 mg PO Q72H PRN 07/29/23 07/29/23 History Magnesia] Metoprolol Tartrate [Lopressor] 25 mg PO BID 07/29/23 07/29/23 History Multivitamins, Thera [Multivitamin 1 tab PO DAILY 07/29/23 07/29/23 History (formulary)] Sennosides/Docusate Sodium [Senna 1 tab PO BID 07/29/23 07/29/23 History Plus 8.6-50 mg Tablet] droNABinol [Marinol] 2.5 mg PO BID 07/29/23 07/29/23 History haloperidoL [Haldol] 2.5 mg PO HS 07/29/23 07/29/23 History polyethylene glycoL 3350 [Miralax] 17 gm PO BID 07/29/23 07/29/23 History sitaGLIPtin [Januvia] 50 mg PO DAILY 07/29/23 07/29/23 History Allergies Allergy/AdvReac Type Severity Reaction Status Date / Time metformin Allergy Unknown Verified 07/29/23 18:14 Sulfa (Sulfonamide Allergy Unknown Verified 07/29/23 18:14 Antibiotics) Physical Exam Vitals: Vital Signs Temp Pulse Resp BP Pulse Ox 08/02/23 07:44 98.3 F 115 H 15 132/77 99 08/02/23 00:51 97.9 F 115 H 18 138/74 100 08/01/23 20:16 97.4 F L 121 H 17 146/79 98 08/01/23 14:00 98.4 F 124 H 16 133/76 98 Intake and Output 08/01/23 08/02/23 08/02/23 22:59 06:59 14:59 Output Total 2425 1500 Balance -2425 -1500 Output: Urine 2425 1500 Other: Voiding Method Indwelling Catheter Results 08/01/23 07:06 08/02/23 06:38 Current Medications Generic Name Dose Route Start Last Admin Trade Name Freq PRN Reason Stop Dose Admin Acetaminophen 500 mg 07/30/23 06:51 08/02/23 04:41 Acetaminophen Tab 500 Mg Tab PO 500 mg Q6HR PRN Administration Fever and/ or Pain Hydrocodone Bitart/Acetaminophen 1 each 07/29/23 20:52 Hydrocodone/Apap 5-325mg 1 Each Tab PO Q4HR PRN Pain Ascorbic Acid 250 mg 07/30/23 09:00 08/01/23 09:06 Ascorbic Acid 500 Mg Tab PO 250 mg DAILY LAUREN Administration Benztropine Mesylate 2 mg 07/29/23 21:00 08/01/23 21:33 Benztropine Mesylate 1 Mg Tab PO 2 mg BID LAUREN Administration Cholecalciferol 50 mcg 07/30/23 09:00 08/01/23 09:06 Cholecalciferol 25 Mcg (1000 Iu) Tablet PO 50 mcg DAILY LAUREN Administration Dextrose/Water 25 ml 07/31/23 16:24 Dextrose 50% Syringe 50 Ml IVP PER PROTOCOL PRN Hypoglycemia Protocol Dextrose/Water 50 ml 07/31/23 16:24 Dextrose 50% Syringe 50 Ml IVP PER PROTOCOL PRN Hypoglycemia Protocol Dronabinol 2.5 mg 07/29/23 21:00 08/01/23 21:33 Dronabinol 2.5 Mg Cap PO 2.5 mg BID LAUREN Administration Enoxaparin Sodium 80 mg 08/02/23 09:00 Enoxaparin 80 Mg/0.8 Ml Syringe SQ Q12HR LAUREN Famotidine 20 mg 07/30/23 09:00 08/01/23 09:07 Famotidine 20 Mg Tab PO 20 mg DAILY LAUREN Administration Ferrous Sulfate 325 mg 07/30/23 09:00 08/01/23 09:07 Ferrous Sulfate 325 Mg Tab PO 325 mg DAILY LAUREN Administration Gabapentin 100 mg 07/29/23 21:00 08/01/23 21:33 Gabapentin 100 Mg Cap PO 100 mg BID LAUREN Administration Haloperidol 2.5 mg 07/29/23 21:00 08/01/23 21:33 Haloperidol 5 Mg Tab PO 2.5 mg HS LAUREN Administration Sodium Chloride 1,000 mls @ 20 mls/hr 07/29/23 20:00 08/01/23 21:31 Saline 0.9% IV Not Given .Q24H LAUREN Vancomycin HCl 1,500 mg/ 500 mls @ 167 mls/hr 07/30/23 09:00 08/01/23 21:09 Sodium Chloride IVPB 167 mls/hr Q12HR LAUREN Administration Ampicillin Sodium/Sulbactam 100 mls @ 200 mls/hr 07/30/23 23:00 08/02/23 04:41 Sodium 3 gm/ Sodium Chloride IVPB 200 mls/hr Q6H LAUREN Administration Protocol Insulin Aspart 0 unit 07/31/23 17:30 08/02/23 06:02 Insulin Aspart (Novolog) 100 Unit/Ml Vial SQ Not Given ACHS [facility] Protocol Lactulose 20 gm 07/30/23 10:45 08/01/23 09:07 Lactulose 20 Gm/30 Ml Cup PO 20 gm DAILY LAUREN Administration Linagliptin 5 mg 07/30/23 09:00 08/01/23 09:07 Linagliptin 5 Mg Tablet PO 5 mg DAILY LAUREN Administration Magnesium Hydroxide 2,400 mg 07/29/23 20:52 Magnesium Hydroxide 2,400 Mg/30 Ml Cup PO Q72H PRN Constipation Metoprolol Tartrate 25 mg 07/29/23 21:00 08/01/23 21:33 Metoprolol Tartrate 25 Mg Tab PO 25 mg BID LAUREN Administration Multivitamins 1 each 07/30/23 09:00 08/01/23 09:06 Multivitamins, Thera 1 Each Tab PO 1 each DAILY LAUREN Administration Naloxone HCl 0.2 mg 07/29/23 19:58 Naloxone 0.4 Mg/Ml 1 Ml Vial IV Q2M PRN Opioid Reversal Ondansetron HCl 4 mg 07/29/23 19:58 Ondansetron 4 Mg/2 Ml Vial IVP Q8HR PRN Nausea And Vomiting Polyethylene Glycol 17 gm 07/30/23 10:45 08/01/23 21:33 Polyethylene Glycol 3350 17 Gm Powd.Pack PO 17 gm BID LAUREN Administration Senna/Docusate Sodium 1 each 07/29/23 21:00 08/01/23 21:33 Sennosides-Docusate Sodium 1 Each Tab PO 1 each BID LAUREN Administration Intake and Output 08/01/23 08/02/23 08/02/23 22:59 06:59 14:59 Output Total 2425 1500 Balance -2425 -1500 Output: Urine 2425 1500 Other: Voiding Method Indwelling Catheter 08/01/23 07:06 08/01/23 07:06
[2023-08-02] MEDS: METOPROLOL TARTRATE 25 MG TAB PO SCH ×3 (10:07→21:42)
[2023-08-02] MEDS ORDERED: METOPROLOL TARTRATE 25 MG TAB PO STA (10:49)
--- NOTE | 2023-08-02 11:27 | P.PN ---
Subjective Progress Note Date: 08/02/23 CHIEF COMPLAINT: Sacral decubitus ulcer HISTORY OF PRESENT ILLNESS: This is a 77 female with a known large sacral decubitus ulcer that has worsened over the last month. Patient is lying in bed comfortably. Surgical service on consult for diverting colostomy placement. Patient has been cleared by cardiology service for surgery. Afebrile. Tachycardic. PHYSICAL EXAM: VITAL SIGNS: Reviewed GENERAL: Well-developed in no acute distress. HEENT: No sclera icterus. Extraocular movements grossly intact. Moist buccal mucosa. Head is atraumatic, normocephalic. Hears conversational speech. No nasal d rainage. NECK: Supple without lymphadenopathy. CHEST: Non-labored respirations and equal bilateral excursions. CARDIOVASCULAR: Palpable 2+ radial pulses. ABDOMEN: Soft. Nondistended. Nontender. MUSCULOSKELETAL: No clubbing or cyanosis. NEUROLOGIC: No focal or lateralizing signs. Cranial nerves II through XII grossly intact. PSYCH: Awake and alert SKIN: Large Sacral decubitus ulcer with sloughing tissue. Tunneling noted at the distal point of the ulcer. ASSESSMENT: 1. Stage IV sacral decubitus ulcer 2. Sepsis due to sacral decubitus ulcer 3. History of stroke with sequela speech impairment 4. Anemia 5. Hypertensive heart disease 6. History of DVT and had been on Eliquis PLAN: -Patient scheduled for diverting colostomy on 08/05/[address] Atwood -Recommend debridement of sacral wound after the diverting colostomy -Continue local wound -Continue antibiotics -Continue protein supplements -Start bowel prep with lactulose bid and milk of magnesia today. Start 2 liter Nulytely bowel prep on Saturday Physician Obiee [employer] note has been reviewed by physician. Signing provider agrees with the documented findings, assessment, and plan of care. Objective - Vital Signs Vital signs: Vital Signs Temp 98.3 F 08/02/23 07:44 Pulse 115 H 08/02/23 07:44 Resp 15 08/02/23 07:44 BP 132/77 08/02/23 07:44 Pulse Ox 99 08/02/23 07:44 FiO2 Intake & Output 08/01/23 08/02/23 08/02/23 18:59 06:59 18:59 Output Total 1475 2450 Balance -1475 -2450 Output: Urine 1475 2450 Other: Voiding Method Indwelling Catheter Indwelling Catheter Indwelling Catheter - Labs CBC & Chem 7: 08/01/23 07:06 08/02/23 06:38 Labs: Abnormal Lab Results - Last 24 Hours (Table) 08/01/23 08/01/23 08/01/23 Range/Units 07:06 11:43 16:50 Creatinine (0.52-1.04) mg/dL POC Glucose (mg/dL) 115 H 160 H (70-110) mg/dL Hemoglobin A1c 6.7 H (<=6.0) % 08/01/23 08/02/23 Range/Units 19:56 06:38 Creatinine 0.35 L (0.52-1.04) mg/dL POC Glucose (mg/dL) 129 H (70-110) mg/dL Hemoglobin A1c (<=6.0) % Microbiology - Last 24 Hours (Table) 07/29/23 19:22 Blood Culture - Preliminary Blood 07/29/23 19:22 Blood Culture - Preliminary Blood 07/29/23 17:58 Gram Stain - Preliminary Buttock Wound Culture - Preliminary Group D Enterococcus Cristina species, not albicans
[2023-08-02 11:36] LABS: Glucose,Whole Blood 125 mg/dL (70-110)
[2023-08-02] MEDS: HYDROcodone/APAP 5-325MG 1 EACH TAB PO PRN ×2 (12:54→17:39)
--- NOTE | 2023-08-02 13:39 | CDI ---
Documentation Clarification Form Date: 08/02/2023 01:20:09 PM From: Tika Ramos RN CCDS Phone: [phone] Admit Date: 07/29/2023 07:58:00 PM Patient Name: Adeline Ramírez Visit Number: [id number] Discharge Date: ATTENTION: The Clinical Documentation Specialists (CDI) and [facility] Coding Staff appreciate your assistance in clarifying documentation. Please respond to the clarification below the line at the bottom and electronically sign. The CDI & [facility] Coding staff will review the response and follow-up if needed. Please note: Queries are made part of the Legal Health Record. If you have any questions, please contact the author of this message via ITS. Dr. Edgar Zuñiga The patient has Sepsis documented in the surgical consult. Based on this information and the findings below, is there an additional diagnosis that is clinically appropriate for this patient? History/Risk Factors: 77-year-old F presents with a sacral decubitus ulcer that has become larger. Medical history: DM, Dementia, HTN ,OA, Lumbar discitis and Bipolor. 07/30, H&P Clinical Indicators: WBC, 07/29: 10.6 Wound cultures, 07/29: Group D Enterococcus, Cristina species, not albicans Vitals signs, 07/29: B/P 174/81; HR 97; Temp 98.2F Oral; RR 16; SpO2 98% ra Treatment: ID Consult, 07/30: Admitted to the hospital with worsening wound patient did have significant slough tissue and would require surgical debridement and deep culture and may need diverting colostomy to prevent recurrent stool contamination. Antibiotics: 07/29 Zosyn IVPB x 1; Vancomycin IVPB x 1; 07/30 Vancomycin IVPB Q12HR; 07/30 Ampicillin IVPB Q6H. IV Bolus: 07/29 0.9ns 1L Bolus x1 Is there an additional diagnosis that is clinically appropriate for this patient? [ + ] Sepsis, present on admission [ ] Sepsis ruled out [ ] Other, please specify [ ] Unable to determine SIRS Criteria: 2 or more of the following may indicate SIRS Temperature < 96.8F (36C) or > 101.0F (38.3C) Heart Rate > 90 bpm Respiratory Rate > 20 breaths/min or PaCO2 < 32 mmHg White Blood Cell Count > 12,000 or < 4,000 cells/mm3 or > 10% bands (Template Last Reviewed: September 2022) MTDD
--- NOTE | 2023-08-02 16:02 | P.PN ---
Subjective Progress Note Date: 08/02/23 This is a pleasant 77 female who is being treated for a sacral decubitus ulceration currently on IV antibiotics of vancomycin and Unasyn with IV followed closely. Patient is also noted to be tachycardic does have history of atrial fibrillation and her metoprolol was increased to 3 times a day by cardiology and monitor. She is scheduled to undergo diverting colostomy on Saturday. Review of Systems Constitutional: Denied any fatigue denied any fever. Cardio vascular: denied any chest pain, palpitations Gastrointestinal: denied any nausea, vomiting, diarrhea Pulmonary: Denied any shortness of breath cough Neurologic denied any new focal deficits All inpatient medications were reviewed and appropriate changes in these medications as dictated in the interval history and assessment and plan. PHYSICAL EXAMINATION: GENERAL: The patient is alert and oriented x3, not in any acute distress. Well developed, well nourished. HEENT: Pupils are round and equally reacting to light. EOMI. No scleral icterus. No conjunctival pallor. Normocephalic, atraumatic. No pharyngeal erythema. No thyromegaly. CARDIOVASCULAR: S1 and S2 present. No murmurs, rubs, or gallops. PULMONARY: Chest is clear to auscultation, no wheezing or crackles. ABDOMEN: Soft, nontender, nondistended, normoactive bowel sounds. No palpable organomegaly. MUSCULOSKELETAL: No joint swelling or deformity. EXTREMITIES: No cyanosis, clubbing, or pedal edema. NEUROLOGICAL: Gross neurological examination did not reveal any focal deficits. SKIN: No rashes. Sacral decubitus ulcer Assessment -Stage IV large sacral decubitus ulcer and sepsis poa, ID following -Chronic medical debility. At the baseline using a walker last few weeks -Chronic constipation -Diabetes mellitus type 2 -Essential hypertension -Recent History of lumbar discitis.Patient had surgery for the same. received antibiotics. -Cognitive impairment -DVT prophylaxis eliquis being held on lovenox with last dose saturday night due to scheduled surgery on Saturday. -GI prophylaxis -Full code -Ar FLANAGAN. Son Plan Patient to continue on IV antibiotics, ID following closely. General surgery has evaluated the patient with plans for diverting colostomy on Saturday in hopes to allow for wound healing of the large sacral decubitus ulceration. Recommend to continue pressure off loading and turn Q2hour. Repeat labs in AM. The impression and plan of care has been dictated by Martha Romero Nurse Practitioner as directed. Dr. Yuliya MD I have performed a history and physical examination and medical decision making of this patient, discussed the same with the dictator, and agree with the dictators assessment and plan as written, documented as a scribe. Based on total visit time, I have performed more than 50% of this visit. Objective - Vital Signs Vital signs: Vital Signs Temp 98.2 F 08/02/23 14:00 Pulse 126 H 08/02/23 14:00 Resp 16 08/02/23 14:00 BP 114/61 08/02/23 14:00 Pulse Ox 98 08/02/23 14:00 FiO2 Intake & Output 08/01/23 08/02/23 08/02/23 18:59 06:59 18:59 Output Total 1475 2450 640 Balance -1475 -2450 -640 Output: Urine 1475 2450 640 Other: Voiding Method Indwelling Catheter Indwelling Catheter Indwelling Catheter - Labs CBC & Chem 7: 08/01/23 07:06 08/02/23 06:38 Labs: Abnormal Lab Results - Last 24 Hours (Table) 08/01/23 08/01/23 08/02/23 Range/Units 16:50 19:56 06:38 Creatinine 0.35 L (0.52-1.04) mg/dL POC Glucose (mg/dL) 160 H 129 H (70-110) mg/dL 08/02/23 Range/Units 11:34 Creatinine (0.52-1.04) mg/dL POC Glucose (mg/dL) 125 H (70-110) mg/dL Microbiology - Last 24 Hours (Table) 07/29/23 19:22 Blood Culture - Preliminary Blood 07/29/23 19:22 Blood Culture - Preliminary Blood 07/29/23 17:58 Gram Stain - Preliminary Buttock Wound Culture - Preliminary Group D Enterococcus Cristina species, not albicans Assessment and Plan Time with Patient: Less than 30
[2023-08-02 16:43] LABS: Glucose,Whole Blood 146 mg/dL (70-110)
[2023-08-02 19:45] LABS: Glucose,Whole Blood 212 mg/dL (70-110)
[2023-08-02] MEDS: haloperidoL 5 MG TAB PO SCH (21:33)
[2023-08-02] MEDS: COLLAGENASE 250 UNIT/GM OINTMENT 30 GM TUBE TOPICAL SCH (21:34)
[2023-08-02] MEDS: SODIUM CHLORIDE 0.9% 1,000 ML IV SCH (21:34)
[2023-08-03] MEDS ORDERED: METOPROLOL TARTRATE 25 MG TAB PO STA (00:21)
[2023-08-03] MEDS: AMPICILLIN-SULBACTAM 3 GM in SODIUM CHLORIDE 0.9% 100 ML IVPB SCH ×3 (04:47→17:00)
[2023-08-03 06:01] LABS: Glucose,Whole Blood 93 mg/dL (70-110)
[2023-08-03] MEDS: INSULIN ASPART (NovoLOG) 100 UNIT/ML VIAL SQ SCH ×4 (06:12→21:06)
[2023-08-03] MEDS ORDERED: VANCOMYCIN TROUGH DUE 1 EACH MISC MISCELLANE ONE (08:00)
[2023-08-03 08:35] LABS: Anisocytosis Slight; Basophils # (A) 0.1 k/uL (0-0.2); Basophils % (A) 1 %; Eosinophils # (A) 0.5 k/uL (0-0.7); Eosinophils % (A) 3 %; HCT 27.3 % (34.0-46.0); HGB 8.3 gm/dL (11.4-16.0); Hypochromasia Marked; Lymphocytes # (A) 6.1 k/uL (1.0-4.8); Lymphocytes % (A) 40 %; MCH 29.4 pg (25.0-35.0); MCHC 30.6 g/dL (31.0-37.0); MCV 96.2 fL (80.0-100.0); Macrocytosis Slight; Mean Platelet Volume 7.5; Monocytes # (A) 0.6 k/uL (0-1.0); Monocytes % (A) 4 %; Neutrophils # (A) 7.7 k/uL (1.3-7.7); Neutrophils % (A) 50 %; Platelet Count 424 k/uL (150-450); RBC 2.83 m/uL (3.80-5.40); RDW 17.2 % (11.5-15.5); WBC 15.3 k/uL (3.8-10.6)
[2023-08-03] MEDS: LACTULOSE 20 GM/30 ML CUP PO SCH ×4 (08:44→21:25)
[2023-08-03] MEDS: VANCOMYCIN 1,500 MG in SODIUM CHLORIDE 0.9% 500 ML 500 ML IVPB SCH ×2 (08:44→21:11)
[2023-08-03] MEDS: SENNOSIDES-DOCUSATE SODIUM 1 EACH TAB PO SCH ×2 (08:45→21:13)
[2023-08-03] MEDS: CHOLECALCIFEROL 25 MCG (1000 IU) TABLET PO SCH (08:45)
[2023-08-03] MEDS: FAMOTIDINE 20 MG TAB PO SCH (08:45)
[2023-08-03] MEDS: droNABinol 2.5 MG CAP PO SCH ×2 (08:45→21:13)
[2023-08-03] MEDS: polyethylene glycoL 3350 17 GM POWD.PACK PO SCH ×3 (08:45→21:25)
[2023-08-03] MEDS: LINAGLIPTIN 5 MG TABLET PO SCH (08:45)
[2023-08-03] MEDS: ASCORBIC ACID 500 MG TAB PO SCH (08:45)
[2023-08-03] MEDS: FERROUS SULFATE 325 MG TAB PO SCH (08:45)
[2023-08-03] MEDS: METOPROLOL TARTRATE 25 MG TAB PO SCH ×3 (08:45→21:14)
[2023-08-03] MEDS: MULTIVITAMINS, THERA 1 EACH TAB PO SCH (08:45)
[2023-08-03] MEDS: ENOXAPARIN 80 MG/0.8 ML SYRINGE SQ SCH ×2 (08:46→21:11)
[2023-08-03] MEDS: GABAPENTIN 100 MG CAP PO SCH ×2 (08:46→21:13)
[2023-08-03] MEDS: COLLAGENASE 250 UNIT/GM OINTMENT 30 GM TUBE TOPICAL SCH (08:46)
[2023-08-03] MEDS: BENZTROPINE MESYLATE 1 MG TAB PO SCH ×2 (08:46→21:13)
[2023-08-03 09:04] LABS: African American GFR (CKD) >90 (>60 ml/min/1.73 sqM); Anion Gap 6 mmol/L; Blood Urea Nitrogen 16 mg/dL (7-17); Calcium 8.6 mg/dL (8.4-10.2); Carbon Dioxide 24 mmol/L (22-30); Chloride 110 mmol/L (98-107); Glucose 96 mg/dL (74-99); Magnesium 1.8 mg/dL (1.6-2.3); Non-African American GFR(CKD) >90 (>60 ml/min/1.73 sqM); Potassium 3.9 mmol/L (3.5-5.1); Sodium 140 mmol/L (137-145)
--- NOTE | 2023-08-03 10:26 | P.PN ---
Subjective Progress Note Date: 08/03/23 (Surgery) CHIEF COMPLAINT: Sacral decubitus ulcer HISTORY OF PRESENT ILLNESS: This is a 77 female with a known large sacral decubitus ulcer that has worsened over the last month. Patient is lying in bed comfortably. Surgical service on consult for diverting colostomy placement. Patient has been cleared by cardiology service for surgery. Afebrile. Tachycardic. PHYSICAL EXAM: VITAL SIGNS: Reviewed GENERAL: Well-developed in no acute distress. HEENT: No sclera icterus. Extraocular movements grossly intact. Moist buccal mucosa. Head is atraumatic, normocephalic. Hears conversational speech. No nasal drainage. NECK: Supple without lymphadenopathy. CHEST: Non-labored respirations and equal bilateral excursions. CARDIOVASCULAR: Palpable 2+ radial pulses. ABDOMEN: Soft. Nondistended. Nontender. MUSCULOSKELETAL: No clubbing or cyanosis. NEUROLOGIC: No focal or lateralizing signs. Cranial nerves II through XII grossly intact. PSYCH: Awake and alert SKIN: Large Sacral decubitus ulcer with sloughing tissue. ASSESSMENT: 1. Stage IV sacral decubitus ulcer 2. Sepsis due to sacral decubitus ulcer 3. History of stroke with sequela speech impairment 4. Anemia 5. Hypertensive heart disease 6. History of DVT and had been on Eliquis PLAN: -Patient scheduled for diverting colostomy on 08/05/[address] Atwood. According to nurse, family is hesitance now. Will leave the discussion to the primary surgeon. -Recommend debridement of sacral wound after the diverting colostomy -Continue local wound -Continue antibiotics -Continue protein supplements Objective - Vital Signs Vital signs: Vital Signs Temp 97.4 F L 08/03/23 09:45 Pulse 99 08/03/23 07:05 Resp 19 08/03/23 07:05 BP 133/69 08/03/23 07:05 Pulse Ox 97 08/03/23 07:05 FiO2 Intake & Output 08/02/23 08/03/23 08/03/23 18:59 06:59 18:59 Output Total 1465 1275 Balance -1465 -1275 Output: Urine 1465 1275 Other: Voiding Method Indwelling Catheter # Bowel Movements 2 - Labs CBC & Chem 7: 08/03/23 08:09 08/03/23 08:09 Labs: Abnormal Lab Results - Last 24 Hours (Table) 08/02/23 08/02/23 08/02/23 Range/Units 11:34 16:42 19:43 WBC (3.8-10.6) k/uL RBC (3.80-5.40) m/uL Hgb (11.4-16.0) gm/dL Hct (34.0-46.0) % MCHC (31.0-37.0) g/dL RDW (11.5-15.5) % Chloride (98-107) mmol/L Creatinine (0.52-1.04) mg/dL POC Glucose (mg/dL) 125 H 146 H 212 H (70-110) mg/dL 08/03/23 08/03/23 Range/Units 08:09 08:09 WBC 15.3 H (3.8-10.6) k/uL RBC 2.83 L (3.80-5.40) m/uL Hgb 8.3 L (11.4-16.0) gm/dL Hct 27.3 L (34.0-46.0) % MCHC 30.6 L (31.0-37.0) g/dL RDW 17.2 H (11.5-15.5) % Chloride 110 H (98-107) mmol/L Creatinine 0.41 L (0.52-1.04) mg/dL POC Glucose (mg/dL) (70-110) mg/dL Microbiology - Last 24 Hours (Table) 07/29/23 17:58 Anaerobic Culture - Final Buttock Anaerobic Gm Negative Bacilli
[2023-08-03 11:37] LABS: Glucose,Whole Blood 86 mg/dL (70-110)
[2023-08-03] MEDS ORDERED: MAGNESIUM HYDROXIDE 2,400 MG/30 ML CUP PO SCH (12:00)
--- NOTE | 2023-08-03 13:30 | P.PN ---
Subjective Progress Note Date: 08/03/23 This is a 77 year old black woman with no previous cardiac history does not follow with a evp and chief operating officer. She has a past medical history of DVT on eliquis, hypertension, diabetes mellitus, dementia, CVA or TIA. Patient recently had 2 admissions at [facility]. Initial one was for possible discitis and also E. coli infection for which she was ordered for 6 weeks of IV antibiotics. Subsequently she was readmitted to [place] with worsening wound to the sacral area status post debridement. Patient is now at [facility]. Patient was sent into the emergency center due to wound evaluation. It has been decided that patient would be benefited by having a diverting colostomy to aid in healing of her sacral decubitus ulcer. We have been asked to evaluate patient for cardiac risk assessment. Patient states to us that she does not wish to have surgery and has not given permission for this surgery. She denies having any history of cardiac problems in the past. She does not follow with a evp and chief operating officer. She denies having any chest pain, chest pressure, no shortness of breath no palpitations. Patient denies having dizziness or syncopal episodes. No nausea or vomiting. No recent CVA and no seizure disorder. She denies smoking. 08/03/2023 The patient was seen and examined resting comfortably in bed. She's had no chest discomfort, shortness of breath, palpitations, dizziness or syncope. She has remained tachycardic at times with underlying sinus mechanism. Blood pressure has been stable. Hemoglobin is stable at 8.3. Anticoagulation remains on hold for possible surgery on Saturday. Objective - Vital Signs Vital signs: Vital Signs Temp 99.7 F H 08/03/23 07:05 Pulse 99 08/03/23 07:05 Resp 19 08/03/23 07:05 BP 133/69 08/03/23 07:05 Pulse Ox 97 08/03/23 07:05 FiO2 Intake & Output 08/02/23 08/03/23 08/03/23 18:59 06:59 18:59 Output Total 1465 1275 Balance -1465 -1275 Output: Urine 1465 1275 Other: Voiding Method Indwelling Catheter # Bowel Movements 2 - Exam HEENT: Head is atraumatic, normocephalic. Pupils equal, round. Sclerae is anicteric. NECK: Supple. No JVD. LUNGS: Clear to auscultation. No wheezes or rhonchi. No intercostal retractions. HEART: Regular rate and rhythm. Soft systolic murmur. ABDOMEN: Soft No tenderness. EXTREMITIES: No pedal edema. No calf tenderness. NEUROLOGICAL: Patient is awake, alert. - Labs CBC & Chem 7: 08/03/23 08:09 08/03/23 08:09 Labs: Abnormal Lab Results - Last 24 Hours (Table) 08/02/23 08/02/23 08/02/23 Range/Units 11:34 16:42 19:43 WBC (3.8-10.6) k/uL RBC (3.80-5.40) m/uL Hgb (11.4-16.0) gm/dL Hct (34.0-46.0) % MCHC (31.0-37.0) g/dL RDW (11.5-15.5) % Chloride (98-107) mmol/L Creatinine (0.52-1.04) mg/dL POC Glucose (mg/dL) 125 H 146 H 212 H (70-110) mg/dL 08/03/23 08/03/23 Range/Units 08:09 08:09 WBC 15.3 H (3.8-10.6) k/uL RBC 2.83 L (3.80-5.40) m/uL Hgb 8.3 L (11.4-16.0) gm/dL Hct 27.3 L (34.0-46.0) % MCHC 30.6 L (31.0-37.0) g/dL RDW 17.2 H (11.5-15.5) % Chloride 110 H (98-107) mmol/L Creatinine 0.41 L (0.52-1.04) mg/dL POC Glucose (mg/dL) (70-110) mg/dL Microbiology - Last 24 Hours (Table) 07/29/23 17:58 Anaerobic Culture - Final Buttock Anaerobic Gm Negative Bacilli Assessment and Plan Assessment: Sacral decubitus ulcer Sinus tachycardia History of DVT Hypertension Diabetes Dementia Plan: From cardiology's perspective medications were reviewed and we will continue the same at this time. Patient is cleared for surgery the patient decides to proceed on Saturday. She is at intermediate risk for complications. There is no sign of ischemic heart disease or heart failure at this time. This time we will follow the patient on as-needed basis. Please do not hesitate to contact us with questions. ARTILLERY OFFICER note has been reviewed, I agree with a documented findings and plan of care. Patient was seen and examined.
[2023-08-03] MEDS: HYDROcodone/APAP 5-325MG 1 EACH TAB PO PRN (13:43)
[2023-08-03] MEDS ORDERED: Magnesium Replacement Protocol 1 EACH MISC MISCELLANE PRN (16:19)
--- NOTE | 2023-08-03 16:20 | P.PN ---
Subjective Progress Note Date: 08/03/23 This is a pleasant 77 female who is being treated for a sacral decubitus ulceration currently on IV antibiotics of vancomycin and Unasyn with IV followed closely. Patient is also noted to be tachycardic does have history of atrial fibrillation and her metoprolol was increased to 3 times a day by cardiology and monitor. She is scheduled to undergo diverting colostomy on Saturday. 08/03/2023 Patient is evaluated today resting in bed. Patient is alert x 3 remains adament she is not getting the colostomy procedure done on Saturday states she does not want it done and doesn't feel it is necessary. White count has increased up to 15.3 today. Patient also had low grade temp of T-max 100.4. Patients appetite remains fair. On dysphagia 3 chopped diet and sitting upright. Aspiration precautions in place. Review of Systems Constitutional: Denied any fatigue denied any fever. Cardio vascular: denied any chest pain, palpitations Gastrointestinal: denied any nausea, vomiting, diarrhea Pulmonary: Denied any shortness of breath cough Neurologic denied any new focal deficits All inpatient medications were reviewed and appropriate changes in these medications as dictated in the interval history and assessment and plan. PHYSICAL EXAMINATION: GENERAL: The patient is alert and oriented x3, not in any acute distress. Well developed, well nourished. HEENT: Pupils are round and equally reacting to light. EOMI. No scleral icterus. No conjunctival pallor. Normocephalic, atraumatic. No pharyngeal erythema. No thyromegaly. CARDIOVASCULAR: S1 and S2 present. No murmurs, rubs, or gallops. PULMONARY: Chest is clear to auscultation, no wheezing or crackles. ABDOMEN: Soft, nontender, nondistended, normoactive bowel sounds. No palpable organomegaly. MUSCULOSKELETAL: No joint swelling or deformity. EXTREMITIES: No cyanosis, clubbing, or pedal edema. NEUROLOGICAL: Gross neurological examination did not reveal any focal deficits. SKIN: No rashes. Sacral decubitus ulcer Assessment -Stage IV large sacral decubitus ulcer and sepsis poa, ID following -Chronic medical debility. At the baseline using a walker last few weeks -Chronic constipation -Diabetes mellitus type 2 -Essential hypertension -Recent History of lumbar discitis.Patient had surgery for the same. received antibiotics. -History of DVT. -Cognitive impairment -DVT prophylaxis eliquis being held on lovenox with last dose saturday night due to scheduled surgery on Saturday. -GI prophylaxis -Full code -Ar FLANAGAN. Son Plan Patient to continue on IV antibiotics, ID following closely. General surgery has evaluated the patient with plans for diverting colostomy on Saturday in hopes to allow for wound healing of the large sacral decubitus ulceration. Recommend to continue pressure off loading and turn Q2hour. Repeat labs in AM. Patient at this time does not want the surgery will follow up with family. Cardiology has cleared patient for surgery on Saturday felt she was an intermediate risk with no obvious signs of heart failure or ischemic heart disease at this time. Check chest xray and urinalysis. The impression and plan of care has been dictated by Martha Romero, Nurse Practitioner as directed. Dr. Yuliya MD I have performed a history and physical examination and medical decision making of this patient, discussed the same with the dictator, and agree with the dictators assessment and plan as written, documented as a scribe. Based on total visit time, I have performed more than 50% of this visit. Objective - Vital Signs Vital signs: Vital Signs Temp 99.7 F H 08/03/23 14:25 Pulse 100 08/03/23 14:25 Resp 18 08/03/23 14:25 BP 134/69 08/03/23 14:25 Pulse Ox 97 08/03/23 14:25 FiO2 Intake & Output 08/02/23 08/03/23 08/03/23 18:59 06:59 18:59 Output Total 1465 1275 Balance -1465 -1275 Output: Urine 1465 1275 Other: Voiding Method Indwelling Catheter Indwelling Catheter # Bowel Movements 2 - Labs CBC & Chem 7: 08/03/23 08:09 08/03/23 08:09 Labs: Abnormal Lab Results - Last 24 Hours (Table) 08/02/23 08/02/23 08/03/23 Range/Units 16:42 19:43 08:09 WBC (3.8-10.6) k/uL RBC (3.80-5.40) m/uL Hgb (11.4-16.0) gm/dL Hct (34.0-46.0) % MCHC (31.0-37.0) g/dL RDW (11.5-15.5) % Chloride 110 H (98-107) mmol/L Creatinine 0.41 L (0.52-1.04) mg/dL POC Glucose (mg/dL) 146 H 212 H (70-110) mg/dL 08/03/23 Range/Units 08:09 WBC 15.3 H (3.8-10.6) k/uL RBC 2.83 L (3.80-5.40) m/uL Hgb 8.3 L (11.4-16.0) gm/dL Hct 27.3 L (34.0-46.0) % MCHC 30.6 L (31.0-37.0) g/dL RDW 17.2 H (11.5-15.5) % Chloride (98-107) mmol/L Creatinine (0.52-1.04) mg/dL POC Glucose (mg/dL) (70-110) mg/dL Microbiology - Last 24 Hours (Table) 07/29/23 17:58 Anaerobic Culture - Final Buttock Anaerobic Gm Negative Bacilli Assessment and Plan Time with Patient: Less than 30
[2023-08-03 16:44] LABS: Glucose,Whole Blood 120 mg/dL (70-110)
[2023-08-03] MEDS: DICLOFENAC SODIUM GEL 100 GM TUBE TOPICAL SCH ×2 (16:59→23:08)
[2023-08-03] MEDS: BACITRACIN OINT 1 EACH PACKET TOPICAL SCH ×2 (17:00→21:16)
[2023-08-03] MEDS ORDERED: MAGNESIUM SULFATE-D5W PMX 1 GM in DEXTROSE/WATER 1 100ML.BAG IVPB ONE (17:00)
[2023-08-03 19:22] LABS: Glucose,Whole Blood 123 mg/dL (70-110)
--- NOTE | 2023-08-03 19:23 | XR ---
EXAMINATION TYPE: XR chest 1V portable DATE OF EXAM: 08/03/2023 7:05 PM CLINICAL INDICATION:Female, 77 years old with history of leukocytosis; COMPARISON: Chest radiographs from 09/07/2023 TECHNIQUE: XR chest 1V portable Frontal view of the chest. FINDINGS: Lungs/Pleura: There is no evidence of pleural effusion, focal consolidation, or pneumothorax. Pulmonary vascularity: Unremarkable. Heart/mediastinum: Cardiomediastinal silhouette is unremarkable. Musculoskeletal: No acute osseous pathology. IMPRESSION: No acute cardiopulmonary disease/process.
[2023-08-03 20:59] LABS: Appearance,Urine Clear (Clear); Bilirubin,Urine Negative (Negative); Blood,Urine Negative (Negative); Color,Urine Colorless; Glucose,Urine (UA) Negative (Negative); Ketones,Urine Negative (Negative); Leukocyte Esterase,Urine Negative (Negative); Nitrite,Urine Negative (Negative); Protein,Urine Negative (Negative); Specific Gravity,Urine 1.015 (1.001-1.035); Urobilinogen,Urine <2.0 mg/dL (<2.0)
[2023-08-03] MEDS: haloperidoL 5 MG TAB PO SCH (21:14)
--- NOTE | 2023-08-03 23:41 | P.PN ---
Subjective Progress Note Date: 08/02/23 Principal diagnosis: Infected sacral pressure ulcer Patient is a 77-year-old -Angolan female with a past medical history significant for hypertension diabetes mellitus dementia CVA TIA patient recently did have 2 stay at [facility] initial 1 was for possible discitis and this patient apparently did have a E. coli infection and was advised a 6-week course of IV Rocephin subsequently readmitted to the [facility] with worsening wound to the sacral area s/p debridement culture positive for Enterococcus faecalis antibiotic was switched over to Unasyn 3 g every 6 hours, patient has not been brought to [facility] ER with worsening sacral wound. On today's evaluation that is 08/02/2023, the patient remains to be afebrile, the patient is breathing comfortably on room air and denies any shortness of breath, the patient denies any chest pain or cough, patient denies nausea/vomiting or diarrhea and no abdominal pain Patient did have white count is mildly elevated at 11.8, creatinine is 0.47 as of yesterday , no labs today, local culture growing enterococcus and blood cultures are pending Objective - Vital Signs Vital signs: Vital Signs Temp 98.2 F 08/02/23 14:00 Pulse 126 H 08/02/23 14:00 Resp 16 08/02/23 14:00 BP 114/61 08/02/23 14:00 Pulse Ox 98 08/02/23 14:00 FiO2 Intake & Output 08/01/23 08/02/23 08/02/23 18:59 06:59 18:59 Output Total 1475 2450 640 Balance -1475 -2450 -640 Output: Urine 1475 2450 640 Other: Voiding Method Indwelling Catheter Indwelling Catheter Indwelling Catheter - Exam GENERAL DESCRIPTION: An elderly female lying in bed in no distress RESPIRATORY SYSTEM: Unlabored breathing , clear to auscultation anteriorly HEART: S1 S2 regular rate and rhythm , ABDOMEN: Soft , no tenderness EXTREMITIES: No edema feet Patient did have a stage IV sacral pressure ulcer with some slough tissue - Labs CBC & Chem 7: 08/03/23 08:09 08/03/23 08:09 Labs: Abnormal Lab Results - Last 24 Hours (Table) 08/01/23 08/01/23 08/02/23 Range/Units 16:50 19:56 06:38 Creatinine 0.35 L (0.52-1.04) mg/dL POC Glucose (mg/dL) 160 H 129 H (70-110) mg/dL 08/02/23 Range/Units 11:34 Creatinine (0.52-1.04) mg/dL POC Glucose (mg/dL) 125 H (70-110) mg/dL Microbiology - Last 24 Hours (Table) 07/29/23 19:22 Blood Culture - Preliminary Blood 07/29/23 19:22 Blood Culture - Preliminary Blood 07/29/23 17:58 Gram Stain - Preliminary Buttock Wound Culture - Preliminary Group D Enterococcus Cristina species, not albicans Assessment and Plan (1) Infected pressure ulcer Current Visit: Yes Status: Acute Code(s): L89.90 - PRESSURE ULCER OF UNSPECIFIED SITE, UNSPECIFIED STAGE; L08.9 - LOCAL INFECTION OF THE SKIN AND SUBCUTANEOUS TISSUE, UNSP SNOMED Code(s): 664050568 (2) Sacral decubitus ulcer Current Visit: Yes Status: Acute Code(s): L89.159 - PRESSURE ULCER OF SACRAL REGION, UNSPECIFIED STAGE SNOMED Code(s): 465301227 Plan: 1patient being brought into the hospital with a worsening wound to the sacral area which apparently was recently acquired during one of her hospital stay with a recent admission at [facility] initial notes for discitis subsequently for worsening wound infection that was debrided and culture positive for Enterococcus faecalis patient was getting Unasyn now being admitted to the hospital with worsening wound patient did have significant sl ough tissue and would require surgical debridement and deep culture and may need diverting colostomy to prevent recurrent stool contamination of her sacral wound and wound VAC placement, this has been discussed in detail with the son on the phone 2-General surgery has been consulted and planning for possible diverting colostomy and debridement 3-patient to continue with the vancomycin along with Unasyn while waiting for the culture to be finalize and repeat CBC with am labs Dictation was produced using [employer] dictation software. please excuse any grammatical, word or spelling errors. Time with Patient: Less than 30
--- NOTE | 2023-08-03 23:43 | P.PN ---
Subjective Progress Note Date: 08/03/23 Principal diagnosis: Infected sacral pressure ulcer Patient is a 77-year-old -Czech female with a past medical history significant for hypertension diabetes mellitus dementia CVA TIA patient recently did have 2 stay at [facility] initial 1 was for possible discitis and this patient apparently did have a E. coli infection and was advised a 6-week course of IV Rocephin subsequently readmitted to the [facility] with worsening wound to the sacral area s/p debridement culture positive for Enterococcus faecalis antibiotic was switched over to Unasyn 3 g every 6 hours, patient has not been brought to [facility] ER with worsening sacral wound. On today's evaluation that is 08/03/2023, the patient continues to be afebrile, the patient is breathing comfortably on room air and denies chest pain or cough, patient denies nausea/vomiting or diarrhea and no abdominal pain Patient did have white count is elevated at 15.3, creatinine is 0.41 , no labs today, local culture growing enterococcus and blood cultures are pending Objective - Vital Signs Vital signs: Vital Signs Temp 99.2 F 08/03/23 19:20 Pulse 102 H 08/03/23 19:20 Resp 18 08/03/23 19:20 BP 130/72 08/03/23 19:20 Pulse Ox 98 08/03/23 19:20 FiO2 Intake & Output 08/03/23 08/03/23 08/04/23 06:59 18:59 05:59 Output Total 1275 620 400 Balance -3099 -620 -400 Output: Urine 1275 620 400 Other: Voiding Method Indwelling Catheter Indwelling Catheter - Exam GENERAL DESCRIPTION: An elderly female lying in bed in no distress RESPIRATORY SYSTEM: Unlabored breathing , clear to auscultation anteriorly HEART: S1 S2 regular rate and rhythm , ABDOMEN: Soft , no tenderness EXTREMITIES: No edema feet Patient did have a stage IV sacral pressure ulcer with some slough tissue - Labs CBC & Chem 7: 08/03/23 08:09 08/03/23 08:09 Labs: Abnormal Lab Results - Last 24 Hours (Table) 08/03/23 08/03/23 08/03/23 Range/Units 08:09 08:09 16:43 WBC 15.3 H (3.8-10.6) k/uL RBC 2.83 L (3.80-5.40) m/uL Hgb 8.3 L (11.4-16.0) gm/dL Hct 27.3 L (34.0-46.0) % MCHC 30.6 L (31.0-37.0) g/dL RDW 17.2 H (11.5-15.5) % Lymphocytes # 6.1 H (1.0-4.8) k/uL Chloride 110 H (98-107) mmol/L Creatinine 0.41 L (0.52-1.04) mg/dL POC Glucose (mg/dL) 120 H (70-110) mg/dL 08/03/23 Range/Units 19:20 WBC (3.8-10.6) k/uL RBC (3.80-5.40) m/uL Hgb (11.4-16.0) gm/dL Hct (34.0-46.0) % MCHC (31.0-37.0) g/dL RDW (11.5-15.5) % Lymphocytes # (1.0-4.8) k/uL Chloride (98-107) mmol/L Creatinine (0.52-1.04) mg/dL POC Glucose (mg/dL) 123 H (70-110) mg/dL Microbiology - Last 24 Hours (Table) 07/29/23 17:58 Anaerobic Culture - Final Buttock Anaerobic Gm Negative Bacilli Assessment and Plan (1) Infected pressure ulcer Current Visit: Yes Status: Acute Code(s): L89.90 - PRESSURE ULCER OF UNSPECIFIED SITE, UNSPECIFIED STAGE; L08.9 - LOCAL INFECTION OF THE SKIN AND SUBCUTANEOUS TISSUE, UNSP SNOMED Code(s): 758867293 (2) Sacral decubitus ulcer Current Visit: Yes Status: Acute Code(s): L89.159 - PRESSURE ULCER OF SACRAL REGION, UNSPECIFIED STAGE SNOMED Code(s): 040719240 Plan: 1patient being brought into the hospital with a worsening wound to the sacral area which apparently was recently acquired during one of her hospital stay with a recent admission at [facility] initial notes for discitis subsequently for worsening wound infection that was debrided and culture positive for Enterococcus faecalis patient was getting Unasyn now being admitted to the hospital with worsening wound patient did have significant slough tissue and would require surgical debridement and deep culture and may need diverting colostomy to prevent recurrent stool contamination of her sacral wound and wound VAC placement, this has been discussed in detail with the son on the phone 2-General surgery has been consulted and planning for possible diverting colostomy and debridement 3-patient did have slight worsening of white count but afebrile , repeat CBC with am lab , to continue with the vancomycin along with Unasyn and adjust antibiotics further if any further worsening of wbc Dictation was produced using [employer] dictation software. please excuse any grammatical, word or spelling errors. Time with Patient: Less than 30
[2023-08-04] MEDS: AMPICILLIN-SULBACTAM 3 GM in SODIUM CHLORIDE 0.9% 100 ML IVPB SCH ×4 (00:53→16:38)
[2023-08-04] MEDS: SODIUM CHLORIDE 0.9% 1,000 ML IV SCH ×2 (00:53→21:49)
[2023-08-04 05:33] LABS: Glucose,Whole Blood 109 mg/dL (70-110)
[2023-08-04] MEDS: INSULIN ASPART (NovoLOG) 100 UNIT/ML VIAL SQ SCH ×4 (05:51→21:47)
[2023-08-04] MEDS: VANCOMYCIN 1,500 MG in SODIUM CHLORIDE 0.9% 500 ML 500 ML IVPB SCH ×2 (07:54→21:42)
[2023-08-04] MEDS: GABAPENTIN 100 MG CAP PO SCH ×2 (07:55→21:43)
[2023-08-04] MEDS: FERROUS SULFATE 325 MG TAB PO SCH (07:56)
[2023-08-04] MEDS: SENNOSIDES-DOCUSATE SODIUM 1 EACH TAB PO SCH ×2 (07:56→21:43)
[2023-08-04] MEDS: droNABinol 2.5 MG CAP PO SCH ×2 (07:56→21:43)
[2023-08-04] MEDS: FAMOTIDINE 20 MG TAB PO SCH (07:56)
[2023-08-04] MEDS: MULTIVITAMINS, THERA 1 EACH TAB PO SCH (07:56)
[2023-08-04] MEDS: CHOLECALCIFEROL 25 MCG (1000 IU) TABLET PO SCH (07:56)
[2023-08-04] MEDS: METOPROLOL TARTRATE 25 MG TAB PO SCH ×3 (07:57→21:43)
[2023-08-04] MEDS: polyethylene glycoL 3350 17 GM POWD.PACK PO SCH ×2 (07:57→21:47)
[2023-08-04] MEDS: ASCORBIC ACID 500 MG TAB PO SCH (07:57)
[2023-08-04] MEDS: LINAGLIPTIN 5 MG TABLET PO SCH (07:57)
[2023-08-04] MEDS: BACITRACIN OINT 1 EACH PACKET TOPICAL SCH ×2 (07:57→21:42)
[2023-08-04] MEDS: BENZTROPINE MESYLATE 1 MG TAB PO SCH ×2 (07:58→21:43)
[2023-08-04] MEDS: ENOXAPARIN 80 MG/0.8 ML SYRINGE SQ SCH (07:58)
[2023-08-04] MEDS: COLLAGENASE 250 UNIT/GM OINTMENT 30 GM TUBE TOPICAL SCH (07:59)
[2023-08-04] MEDS: DICLOFENAC SODIUM GEL 100 GM TUBE TOPICAL SCH ×4 (07:59→22:06)
[2023-08-04 08:34] LABS: Anisocytosis Slight; Basophils # (A) 0.1 k/uL (0-0.2); Basophils % (A) 0 %; Eosinophils # (A) 0.4 k/uL (0-0.7); Eosinophils % (A) 3 %; HCT 26.4 % (34.0-46.0); HGB 8.4 gm/dL (11.4-16.0); Hypochromasia Marked; Lymphocytes # (A) 5.2 k/uL (1.0-4.8); Lymphocytes % (A) 39 %; MCH 30.8 pg (25.0-35.0); MCHC 31.9 g/dL (31.0-37.0); MCV 96.7 fL (80.0-100.0); Macrocytosis Slight; Mean Platelet Volume 7.1; Monocytes # (A) 0.5 k/uL (0-1.0); Monocytes % (A) 4 %; Neutrophils # (A) 7.1 k/uL (1.3-7.7); Neutrophils % (A) 52 %; Platelet Count 423 k/uL (150-450); RBC 2.73 m/uL (3.80-5.40); RDW 17.2 % (11.5-15.5); WBC 13.5 k/uL (3.8-10.6)
[2023-08-04] MEDS ORDERED: PEG 3350 (420 GM/BTL) + LYTES 4,000 ML BOTTLE PO ONE (09:00)
[2023-08-04 09:08] LABS: African American GFR (CKD) >90 (>60 ml/min/1.73 sqM); Anion Gap 6 mmol/L; Blood Urea Nitrogen 17 mg/dL (7-17); Calcium 8.5 mg/dL (8.4-10.2); Carbon Dioxide 25 mmol/L (22-30); Chloride 110 mmol/L (98-107); Glucose 111 mg/dL (74-99); Magnesium 1.9 mg/dL (1.6-2.3); Non-African American GFR(CKD) >90 (>60 ml/min/1.73 sqM); Potassium 3.7 mmol/L (3.5-5.1); Sodium 141 mmol/L (137-145)
--- NOTE | 2023-08-04 11:43 | P.PN ---
Subjective Progress Note Date: 08/04/23 Principal diagnosis: Sacral decubitus ulcer Patient seen at the bedside with the patient's granddaughter present. She states she is not interested in surgery at this time. Objective - Vital Signs Vital signs: Vital Signs Temp 97.7 F 08/04/23 07:15 Pulse 91 08/04/23 07:15 Resp 19 08/04/23 07:15 BP 144/71 08/04/23 07:15 Pulse Ox 97 08/04/23 07:15 FiO2 Intake & Output 08/03/23 08/04/23 08/04/23 19:59 06:59 18:59 Output Total Balance Output: Urine Other: Voiding Method - Exam Sacral wound dressing in place - Labs CBC & Chem 7: 08/04/23 07:51 08/04/23 07:51 Labs: Abnormal Lab Results - Last 24 Hours (Table) 08/03/23 08/03/23 08/03/23 Range/Units 08:09 16:43 19:20 WBC (3.8-10.6) k/uL RBC (3.80-5.40) m/uL Hgb (11.4-16.0) gm/dL Hct (34.0-46.0) % RDW (11.5-15.5) % Lymphocytes # 6.1 H (1.0-4.8) k/uL Chloride (98-107) mmol/L Creatinine (0.52-1.04) mg/dL Glucose (74-99) mg/dL POC Glucose (mg/dL) 120 H 123 H (70-110) mg/dL 08/04/23 08/04/23 Range/Units 07:51 07:51 WBC 13.5 H (3.8-10.6) k/uL RBC 2.73 L (3.80-5.40) m/uL Hgb 8.4 L (11.4-16.0) gm/dL Hct 26.4 L (34.0-46.0) % RDW 17.2 H (11.5-15.5) % Lymphocytes # 5.2 H (1.0-4.8) k/uL Chloride 110 H (98-107) mmol/L Creatinine 0.42 L (0.52-1.04) mg/dL Glucose 111 H (74-99) mg/dL POC Glucose (mg/dL) (70-110) mg/dL Microbiology - Last 24 Hours (Table) 07/29/23 19:22 Blood Culture - Final Blood 07/29/23 19:22 Blood Culture - Final Blood Assessment and Plan (1) Infected pressure ulcer Narrative/Plan: Patient states that she is not interested in surgery at this time. Continue antibiotics. Continue local wound care. Patient will discuss further with her surgeon tomorrow regarding whether to proceed with diverting ostomy. Current Visit: Yes Status: Acute Code(s): L89.90 - PRESSURE ULCER OF UNSPECIFIED SITE, UNSPECIFIED STAGE; L08.9 - LOCAL INFECTION OF THE SKIN AND SUBCUTANEOUS TISSUE, UNSP SNOMED Code(s): 556323439
[2023-08-04 11:47] LABS: Glucose,Whole Blood 136 mg/dL (70-110)
[2023-08-04] MEDS: HYDROcodone/APAP 5-325MG 1 EACH TAB PO PRN (12:45)
--- NOTE | 2023-08-04 14:16 | P.PN ---
Subjective Progress Note Date: 08/04/23 Principal diagnosis: Infected sacral pressure ulcer Patient is a 77-year-old -Gabonese female with a past medical history significant for hypertension diabetes mellitus dementia CVA TIA patient recently did have 2 stay at [facility] initial 1 was for possible discitis and this patient apparently did have a E. coli infection and was advised a 6-week course of IV Rocephin subsequently readmitted to the [facility] with worsening wound to the sacral area s/p debridement culture positive for Enterococcus faecalis antibiotic was switched over to Unasyn 3 g every 6 hours, patient has not been brought to [facility] ER with worsening sacral wound. On today's evaluation that is 08/04/2023, the patient denies any fever or any chills, the patient is breathing comfortably on room air and no need for supplemental oxygen, the patient denies any chest pain and no cough or sputum production, patient denies Abdominal pain and no nausea/vomiting or diarrhea Patient did have white count is down to 13.5, creatinine is 0.42 , local culture growing enterococcus and blood cultures are pending Objective - Vital Signs Vital signs: Vital Signs Temp 97.7 F 08/04/23 07:15 Pulse 91 08/04/23 07:15 Resp 19 08/04/23 07:15 BP 144/71 08/04/23 07:15 Pulse Ox 97 08/04/23 07:15 FiO2 Intake & Output 08/03/23 08/04/23 08/04/23 19:59 06:59 18:59 Output Total Balance Output: Urine Other: Voiding Method - Exam GENERAL DESCRIPTION: An elderly female lying in bed in no distress RESPIRATORY SYSTEM: Unlabored breathing , clear to auscultation anteriorly HEART: S1 S2 regular rate and rhythm , ABDOMEN: Soft , no tenderness EXTREMITIES: No edema feet Patient did have a stage IV sacral pressure ulcer with some slough tissue - Labs CBC & Chem 7: 08/04/23 07:51 08/04/23 07:51 Labs: Abnormal Lab Results - Last 24 Hours (Table) 08/03/23 08/03/23 08/03/23 Range/Units 08:09 16:43 19:20 WBC (3.8-10.6) k/uL RBC (3.80-5.40) m/uL Hgb (11.4-16.0) gm/dL Hct (34.0-46.0) % RDW (11.5-15.5) % Lymphocytes # 6.1 H (1.0-4.8) k/uL Chloride (98-107) mmol/L Creatinine (0.52-1.04) mg/dL Glucose (74-99) mg/dL POC Glucose (mg/dL) 120 H 123 H (70-110) mg/dL 08/04/23 08/04/23 08/04/23 Range/Units 07:51 07:51 11:45 WBC 13.5 H (3.8-10.6) k/uL RBC 2.73 L (3.80-5.40) m/uL Hgb 8.4 L (11.4-16.0) gm/dL Hct 26.4 L (34.0-46.0) % RDW 17.2 H (11.5-15.5) % Lymphocytes # 5.2 H (1.0-4.8) k/uL Chloride 110 H (98-107) mmol/L Creatinine 0.42 L (0.52-1.04) mg/dL Glucose 111 H (74-99) mg/dL POC Glucose (mg/dL) 136 H (70-110) mg/dL Microbiology - Last 24 Hours (Table) 07/29/23 19:22 Blood Culture - Final Blood 07/29/23 19:22 Blood Culture - Final Blood Assessment and Plan (1) Infected pressure ulcer Current Visit: Yes Status: Acute Code(s): L89.90 - PRESSURE ULCER OF UNSPECIFIED SITE, UNSPECIFIED STAGE; L08.9 - LOCAL INFECTION OF THE SKIN AND SUBCUTANEOUS TISSUE, UNSP SNOMED Code(s): 829193621 (2) Sacral decubitus ulcer Current Visit: Yes Status: Acute Code(s): L89.159 - PRESSURE ULCER OF SACRAL REGION, UNSPECIFIED STAGE SNOMED Code(s): 546180019 Plan: 1patient being brought into the hospital with a worsening wound to the sacral area which apparently was recently acquired during one of her hospital stay with a recent admission at [facility] initial notes for discitis subsequently for worsening wound infection that was debrided and culture positive for Enterococcus faecalis patient was getting Unasyn now being admitted to the hospital with worsening wound patient did have significant sl ough tissue and would require surgical debridement and deep culture and may need diverting colostomy to prevent recurrent stool contamination of her sacral wound and wound VAC placement, 2-Patient apparently has refused diverting colostomy waiting for surgical debridement and deep culture 3- continue with the vancomycin along with Unasyn son at the bedside questions were answered Dictation was produced using [employer] dictation software. please excuse any grammatical, word or spelling errors. Time with Patient: Less than 30
[2023-08-04] MEDS ORDERED: MAGNESIUM OXIDE 400 MG TAB PO STA (15:42)
[2023-08-04] MEDS ORDERED: POTASSIUM CHLORIDE ER 20 MEQ TAB.ER PO STA (15:42)
--- NOTE | 2023-08-04 15:44 | P.PN ---
Subjective Progress Note Date: 08/04/23 This is a pleasant 77 female who is being treated for a sacral decubitus ulceration currently on IV antibiotics of vancomycin and Unasyn with IV followed closely. Patient is also noted to be tachycardic does have history of atrial fibrillation and her metoprolol was increased to 3 times a day by cardiology and monitor. She is scheduled to undergo diverting colostomy on Saturday. 08/03/2023 Patient is evaluated today resting in bed. Patient is alert x 3 remains adament she is not getting the colostomy procedure done on Saturday states she does not want it done and doesn't feel it is necessary. White count has increased up to 15.3 today. Patient also had low grade temp of T-max 100.4. Patients appetite remains fair. On dysphagia 3 chopped diet and sitting upright. Aspiration precautions in place. 08/04/2023 Patient evaluated today resting in bed. Talked with patients son luis who is the POA and patient and family have decided against colostomy at this time. They are agreeable to a FMS placed. They are hoping this can be done during surgical debridement. Discussed with surgery and this will be followed up with Dr Atwood tomorrow. Family is hoping for surgical debridement of the wound and placement of wound vac. Otherwise patient has no acute complaints. White count better today down to 13.5, hgb 8.4. Review of Systems Constitutional: Denied any fatigue denied any fever. Cardio vascular: denied any chest pain, palpitations Gastrointestinal: denied any nausea, vomiting, diarrhea Pulmonary: Denied any shortness of breath cough Neurologic denied any new focal deficits All inpatient medications were reviewed and appropriate changes in these medications as dictated in the interval history and assessment and plan. PHYSICAL EXAMINATION: GENERAL: The patient is alert and oriented x3, not in any acute distress. Well developed, well nourished. HEENT: Pupils are round and equally reacting to light. EOMI. No scleral icterus. No conjunctival pallor. Normocephalic, atraumatic. No pharyngeal erythema. No thyromegaly. CARDIOVASCULAR: S1 and S2 present. No murmurs, rubs, or gallops. PULMONARY: Chest is clear to auscultation, no wheezing or crackles. ABDOMEN: Soft, nontender, nondistended, normoactive bowel sounds. No palpable organomegaly. MUSCULOSKELETAL: No joint swelling or deformity. EXTREMITIES: No cyanosis, clubbing, or pedal edema. NEUROLOGICAL: Gross neurological examination did not reveal any focal deficits. SKIN: No rashes. Sacral decubitus ulcer Assessment -Stage IV large sacral decubitus ulcer and sepsis poa, ID following -Chronic medical debility. At the baseline using a walker last few weeks -Chronic constipation -Diabetes mellitus type 2 -Essential hypertension -Recent History of lumbar discitis.Patient had surgery for the same. received antibiotics. -History of DVT. -Cognitive impairment -DVT prophylaxis eliquis being held on lovenox with last dose saturday night due to scheduled surgery on Saturday. -GI prophylaxis -Full code -DPOBIE, Ar Ramírez. Son Plan Patient to continue on IV antibiotics, ID following closely. Family and patient have decided against ostomy placement and this will be discussed with general surgery in the AM. Family hoping for surgical debridement of the sacral decub and placement of wound vac. Recommend to continue pressure off loading and turn Q2hour. Repeat labs in AM.Cardiology has cleared patient for surgery on Saturday felt she was an intermediate risk with no obvious signs of heart failure or ischemic heart disease at this time. Repeat labs in AM. The impression and plan of care has been dictated by Martha Romero, Nurse Practitioner as directed. Dr. Yuliya MD I have performed a history and physical examination and medical decision making of this patient, discussed the same with the dictator, and agree with the dictators assessment and plan as written, documented as a scribe. Based on total visit time, I have performed more than 50% of this visit. Objective - Vital Signs Vital signs: Vital Signs Temp 98.6 F 08/04/23 14:32 Pulse 100 08/04/23 14:32 Resp 18 08/04/23 14:32 BP 158/77 08/04/23 14:32 Pulse Ox 98 08/04/23 14:32 FiO2 Intake & Output 08/03/23 08/04/23 08/04/23 19:59 06:59 18:59 Output Total Balance Output: Urine Other: Voiding Method - Labs CBC & Chem 7: 08/04/23 07:51 08/04/23 07:51 Labs: Abnormal Lab Results - Last 24 Hours (Table) 08/03/23 08/03/23 08/03/23 Range/Units 08:09 16:43 19:20 WBC (3.8-10.6) k/uL RBC (3.80-5.40) m/uL Hgb (11.4-16.0) gm/dL Hct (34.0-46.0) % RDW (11.5-15.5) % Lymphocytes # 6.1 H (1.0-4.8) k/uL Chloride (98-107) mmol/L Creatinine (0.52-1.04) mg/dL Glucose (74-99) mg/dL POC Glucose (mg/dL) 120 H 123 H (70-110) mg/dL 08/04/23 08/04/23 08/04/23 Range/Units 07:51 07:51 11:45 WBC 13.5 H (3.8-10.6) k/uL RBC 2.73 L (3.80-5.40) m/uL Hgb 8.4 L (11.4-16.0) gm/dL Hct 26.4 L (34.0-46.0) % RDW 17.2 H (11.5-15.5) % Lymphocytes # 5.2 H (1.0-4.8) k/uL Chloride 110 H (98-107) mmol/L Creatinine 0.42 L (0.52-1.04) mg/dL Glucose 111 H (74-99) mg/dL POC Glucose (mg/dL) 136 H (70-110) mg/dL Microbiology - Last 24 Hours (Table) 07/29/23 19:22 Blood Culture - Final Blood 07/29/23 19:22 Blood Culture - Final Blood Assessment and Plan Time with Patient: Less than 30
[2023-08-04] MEDS: ACETAMINOPHEN TAB 500 MG TAB PO PRN (15:58)
[2023-08-04 16:52] LABS: Glucose,Whole Blood 142 mg/dL (70-110)
[2023-08-04 19:17] LABS: Glucose,Whole Blood 152 mg/dL (70-110)
[2023-08-04] MEDS: haloperidoL 5 MG TAB PO SCH (21:42)
[2023-08-04] MEDS: LACTULOSE 20 GM/30 ML CUP PO SCH (21:47)
[2023-08-05] MEDS: AMPICILLIN-SULBACTAM 3 GM in SODIUM CHLORIDE 0.9% 100 ML IVPB SCH ×5 (01:10→23:49)
[2023-08-05 06:01] LABS: Glucose,Whole Blood 107 mg/dL (70-110)
[2023-08-05] MEDS: INSULIN ASPART (NovoLOG) 100 UNIT/ML VIAL SQ SCH ×4 (06:16→21:47)
[2023-08-05] MEDS ORDERED: HYDROmorphone 0.5 MG/0.5 ML SYRINGE IVP PRN (08:13)
[2023-08-05] MEDS ORDERED: DEXAMETHASONE SOD PHOSPHATE 4 MG/ML 1 ML VIAL IV ONE (08:13)
[2023-08-05] MEDS ORDERED: ONDANSETRON 4 MG/2 ML VIAL IVP ONE ×2 (08:13→15:51)
[2023-08-05 08:22] LABS: Basophils # (A) 0.04 X 10*3/uL (0.00-0.10); Basophils % (A) 0.3 %; Eosinophils # (A) 0.45 X 10*3/uL (0.04-0.35); Eosinophils % (A) 3.6 %; HCT 24.8 % (37.2-46.3); HGB 7.5 d/dL (12.0-15.0); Lymphocytes # (A) 4.74 X 10*3/uL (0.90-5.00); Lymphocytes % (A) 37.4 %; MCH 29.3 pg (27.0-32.0); MCHC 30.2 d/dL (32.0-37.0); MCV 96.9 FL (80.0-97.0); Monocytes # (A) 0.77 X 10*3/uL (0.20-1.00); Monocytes % (A) 6.1 %; NRBC Per 100 WBC 0 X 10*3/uL (0.00-0.01); Neutrophils # (A) 6.49 X 10*3/uL (1.80-7.70); Neutrophils % (A) 51.3 %; Platelet Count 352 X 10*3/uL (140-440); RBC 2.56 X 10*6/uL (4.10-5.20); RDW 18.3 % (11.5-14.5); WBC 12.66 X 10*3/uL (4.50-10.00)
[2023-08-05 08:39] LABS: BUN/Creat Ratio 36.75 Ratio (12.00-20.00); Blood Urea Nitrogen 14.7 mg/dL (9.0-27.0); Calcium 8.1 mg/dL (8.7-10.3); Carbon Dioxide 25.9 mmol/L (21.6-31.8); Chloride 111 mmol/L (96-109); Glucose 97 mg/dL (70-110); Potassium 3.6 mmol/L (3.5-5.5); Sodium 141 mmol/L (135-145)
--- NOTE | 2023-08-05 08:56 | P.PN ---
Progress Note - Text Progress Note Date: 08/05/23 Notified by on-call team and medical team that patient no longer wants colostomy creation. She only wants wound debridement. We'll proceed with sacral wound debridement and wound VAC placement.
[2023-08-05] MEDS: LACTATED RINGERS 1,000 ML IV SCH (09:41)
[2023-08-05] MEDS: COLLAGENASE 250 UNIT/GM OINTMENT 30 GM TUBE TOPICAL SCH (09:48)
[2023-08-05] MEDS: METOPROLOL TARTRATE 25 MG TAB PO SCH ×4 (09:56→22:20)
[2023-08-05] MEDS: LACTULOSE 20 GM/30 ML CUP PO SCH ×2 (09:56→22:17)
[2023-08-05] MEDS: GABAPENTIN 100 MG CAP PO SCH ×3 (09:56→22:20)
[2023-08-05] MEDS: LINAGLIPTIN 5 MG TABLET PO SCH (09:56)
[2023-08-05] MEDS: SENNOSIDES-DOCUSATE SODIUM 1 EACH TAB PO SCH ×3 (09:56→22:20)
[2023-08-05] MEDS: droNABinol 2.5 MG CAP PO SCH ×2 (09:56→21:36)
[2023-08-05] MEDS: CHOLECALCIFEROL 25 MCG (1000 IU) TABLET PO SCH (09:56)
[2023-08-05] MEDS: FERROUS SULFATE 325 MG TAB PO SCH (09:56)
[2023-08-05] MEDS: VANCOMYCIN 1,500 MG in SODIUM CHLORIDE 0.9% 500 ML 500 ML IVPB SCH ×2 (09:57→21:35)
[2023-08-05] MEDS: ASCORBIC ACID 500 MG TAB PO SCH (09:57)
[2023-08-05] MEDS: polyethylene glycoL 3350 17 GM POWD.PACK PO SCH ×2 (09:57→22:17)
[2023-08-05] MEDS: FAMOTIDINE 20 MG TAB PO SCH (09:57)
[2023-08-05] MEDS: MULTIVITAMINS, THERA 1 EACH TAB PO SCH (09:57)
[2023-08-05] MEDS: BACITRACIN OINT 1 EACH PACKET TOPICAL SCH ×2 (09:58→21:36)
[2023-08-05] MEDS: BENZTROPINE MESYLATE 1 MG TAB PO SCH ×3 (09:59→22:20)
[2023-08-05] MEDS: DICLOFENAC SODIUM GEL 100 GM TUBE TOPICAL SCH ×4 (10:00→22:17)
--- NOTE | 2023-08-05 11:31 | P.PN ---
Subjective Progress Note Date: 08/05/23 Principal diagnosis: Infected sacral pressure ulcer Patient is a 77-year-old -Citizen Of [place] female with a past medical history significant for hypertension diabetes mellitus dementia CVA TIA patient recently did have 2 stay at [facility] initial 1 was for possible discitis and this patient apparently did have a E. coli infection and was advised a 6-week course of IV Rocephin subsequently readmitted to the [facility] with worsening wound to the sacral area s/p debridement culture positive for Enterococcus faecalis antibiotic was switched over to Unasyn 3 g every 6 hours, patient has not been brought to [facility] ER with worsening sacral wound. On today's evaluation that is 08/05/2023, the patient remains to be afebrile, the patient is breathing comfortably on room air , the patient denies any chest pain or cough and no sputum production, patient denies nausea/vomiting or diarrhea , no abdominal pain Patient did have white count is down to 12.66, creatinine is 0.4, local culture growing enterococcus and blood cultures are pending Objective - Vital Signs Vital signs: Vital Signs Temp 97.6 F 08/05/23 07:01 Pulse 74 08/05/23 07:01 Resp 17 08/05/23 07:01 BP 149/75 08/05/23 07:01 Pulse Ox 99 08/05/23 07:01 FiO2 Intake & Output 08/04/23 08/05/23 08/05/23 18:59 06:59 18:59 Output Total 2760 1800 Balance -2760 -1800 Output: Urine 2760 1800 Other: Voiding Method Indwelling Catheter Indwelling Catheter Indwelling Catheter # Bowel Movements 1 - Exam GENERAL DESCRIPTION: An elderly female lying in bed in no distress RESPIRATORY SYSTEM: Unlabored breathing , clear to auscultation anteriorly HEART: S1 S2 regular rate and rhythm , ABDOMEN: Soft , no tenderness EXTREMITIES: No edema feet Patient did have a stage IV sacral pressure ulcer with some slough tissue - Labs CBC & Chem 7: 08/05/23 05:53 08/05/23 05:53 Labs: Abnormal Lab Results - Last 24 Hours (Table) 08/04/23 08/04/23 08/04/23 Range/Units 11:45 16:38 19:15 WBC (4.50-10.00) X 10*3/uL RBC (4.10-5.20) X 10*6/uL Hgb (12.0-15.0) d/dL Hct (37.2-46.3) % MCHC (32.0-37.0) d/dL RDW (11.5-14.5) % MPV (9.5-12.2) FL Eosinophils # (0.04-0.35) X 10*3/uL Chloride (96-109) mmol/L Creatinine (0.6-1.5) mg/dL BUN/Creatinine Ratio (12.00-20.00) Ratio POC Glucose (mg/dL) 136 H 142 H 152 H (70-110) mg/dL Calcium (8.7-10.3) mg/dL 08/05/23 08/05/23 Range/Units 05:53 05:53 WBC 12.66 H (4.50-10.00) X 10*3/uL RBC 2.56 L (4.10-5.20) X 10*6/uL Hgb 7.5 L (12.0-15.0) d/dL Hct 24.8 L (37.2-46.3) % MCHC 30.2 L (32.0-37.0) d/dL RDW 18.3 H (11.5-14.5) % MPV 9.0 L (9.5-12.2) FL Eosinophils # 0.45 H (0.04-0.35) X 10*3/uL Chloride 111 H (96-109) mmol/L Creatinine 0.4 L (0.6-1.5) mg/dL BUN/Creatinine Ratio 36.75 H (12.00-20.00) Ratio POC Glucose (mg/dL) (70-110) mg/dL Calcium 8.1 L (8.7-10.3) mg/dL Assessment and Plan (1) Infected pressure ulcer Current Visit: Yes Status: Acute Code(s): L89.90 - PRESSURE ULCER OF UNSPECIFIED SITE, UNSPECIFIED STAGE; L08.9 - LOCAL INFECTION OF THE SKIN AND SUBCUTANEOUS TISSUE, UNSP SNOMED Code(s): 294050418 (2) Sacral decubitus ulcer Current Visit: Yes Status: Acute Code(s): L89.159 - PRESSURE ULCER OF SACRAL REGION, UNSPECIFIED STAGE SNOMED Code(s): 621392574 Plan: 1patient being brought into the hospital with a worsening wound to the sacral area which apparently was recently acquired during one of her hospital stay with a recent admission at [facility] initial notes for disci tis subsequently for worsening wound infection that was debrided and culture positive for Enterococcus faecalis patient was getting Unasyn now being admitted to the hospital with worsening wound patient did have significant slough tissue and would require surgical debridement and deep culture and may need diverting colostomy to prevent recurrent stool contamination of her sacral wound and wound VAC placement, 2-Patient apparently has refused diverting colostomy waiting for surgical debridement and deep culture, which is scheduled for this afternoon 3- patient to continue with the vancomycin along with Unasyn , white count is trending down son at the bedside questions were answered Dictation was produced using [employer] dictation software. please excuse any grammatical, word or spelling errors. Time with Patient: Less than 30
[2023-08-05 11:57] LABS: Glucose,Whole Blood 101 mg/dL (70-110)
[2023-08-05] MEDS ORDERED: ACETAMINOPHEN IV (For NPO) 1,000 MG in EMPTY BAG 1 BAG IVPB ONE (12:48)
[2023-08-05] MEDS ORDERED: IV FLUID CONTINUATION 1,000 ML IV ONE (15:17)
[2023-08-05 15:28] LABS: Glucose,Whole Blood 106 mg/dL (70-110)
[2023-08-05] MEDS ORDERED: DEXAMETHASONE SOD PHOSPHATE 4 MG/ML 1 ML VIAL IVP ONE (15:51)
[2023-08-05] MEDS ORDERED: SUCCINYLCHOLINE CHLORIDE 200 MG/10 ML VIAL IV ONE (16:09)
[2023-08-05] MEDS ORDERED: PHENYLEPHRINE 10 MG/ML 5 ML VIAL ONE (16:09)
[2023-08-05] MEDS ORDERED: LIDOCAINE 1% INJ 10MG/ML (20 ML MDV) ONE (16:09)
[2023-08-05] MEDS ORDERED: fentaNYL (PF) 50 MCG/ML 2 ML AMP ONE (16:09)
[2023-08-05] MEDS ORDERED: ETOMIDATE 2 MG/ML 10 ML VIAL ONE (16:09)
[2023-08-05] MEDS ORDERED: LIDOCAINE 2%-EPI 1:100,000 20 ML VIAL SQ ONE (16:16)
--- NOTE | 2023-08-05 18:02 | P.PN ---
Subjective Progress Note Date: 08/05/23 This is a pleasant 77 female who is being treated for a sacral decubitus ulceration currently on IV antibiotics of vancomycin and Unasyn with IV followed closely. Patient is also noted to be tachycardic does have history of atrial fibrillation and her metoprolol was increased to 3 times a day by cardiology and monitor. She is scheduled to undergo diverting colostomy on Saturday. 08/03/2023 Patient is evaluated today resting in bed. Patient is alert x 3 remains adament she is not getting the colostomy procedure done on Saturday states she does not want it done and doesn't feel it is necessary. White count has increased up to 15.3 today. Patient also had low grade temp of T-max 100.4. Patients appetite remains fair. On dysphagia 3 chopped diet and sitting upright. Aspiration precautions in place. 08/04/2023 Patient evaluated today resting in bed. Talked with patients son luis who is the POA and patient and family have decided against colostomy at this time. They are agreeable to a FMS placed. They are hoping this can be done during surgical debridement. Discussed with surgery and this will be followed up with Dr Atwood tomorrow. Family is hoping for surgical debridement of the wound and placement of wound vac. Otherwise patient has no acute complaints. White count better today down to 13.5, hgb 8.4. 08/05/2023 Patient evaluated today resting in bed. Talked with family at the bedside and they have decided against colostomy would like to proceed with surgical debridement and wound vac placement which is scheduled for today. White count continues to improve 12.66 today. Remains on IV unasyn and IV vancomycin. Fever has improved. Review of Systems Constitutional: Denied any fatigue denied any fever. Cardio vascular: denied any chest pain, palpitations Gastrointestinal: denied any nausea, vomiting, diarrhea Pulmonary: Denied any shortness of breath cough Neurologic denied any new focal deficits All inpatient medications were reviewed and appropriate changes in these me dications as dictated in the interval history and assessment and plan. PHYSICAL EXAMINATION: GENERAL: The patient is alert and oriented x3, not in any acute distress. Well developed, well nourished. HEENT: Pupils are round and equally reacting to light. EOMI. No scleral icterus. No conjunctival pallor. Normocephalic, atraumatic. No pharyngeal erythema. No thyromegaly. CARDIOVASCULAR: S1 and S2 present. No murmurs, rubs, or gallops. PULMONARY: Chest is clear to auscultation, no wheezing or crackles. ABDOMEN: Soft, nontender, nondistended, normoactive bowel sounds. No palpable organomegaly. MUSCULOSKELETAL: No joint swelling or deformity. EXTREMITIES: No cyanosis, clubbing, or pedal edema. NEUROLOGICAL: Gross neurological examination did not reveal any focal deficits. SKIN: No rashes. Sacral decubitus ulcer Assessment -Stage IV large sacral decubitus ulcer and sepsis poa, ID following status post surgical debridement and wound VAC placement -Chronic medical debility. At the baseline using a walker last few weeks -Chronic constipation -Diabetes mellitus type 2 -Essential hypertension -Recent History of lumbar discitis.Patient had surgery for the same. received antibiotics. -History of DVT. -Cognitive impairment -DVT prophylaxis eliquis being held was on lovenox will resume lovenox and resume eliquis when cleared by surgery. -GI prophylaxis -Full code -Ar FLANAGAN. Son Plan Patient to continue on IV antibiotics, ID following closely. Family and patient have decided against diverting ostomy placement.Patient is status post surgical debridement of the sacral decub and placement of wound vac. Recommend to continue pressure off loading and turn Q2hour. Pending deep tissue surgical cultures for final D/C antibiotics and patient will return [facility] on discharge. The impression and plan of care has been dictated by Martha Romero, Nurse Practitioner as directed. Dr. Yuliya MD I have performed a history and physical examination and medical decision making of this patient, discussed the same with the dictator, and agree with the dictators assessment and plan as written, documented as a scribe. Based on total visit time, I have performed more than 50% of this visit. Objective - Vital Signs Vital signs: Vital Signs Temp 98.0 F 08/05/23 17: Pulse 103 H 08/05/23 17: Resp 18 08/05/23 17: BP 114/54 08/05/23 17: Pulse Ox 100 08/05/23 17:23 FiO2 Intake & Output 08/04/23 08/05/23 08/05/23 18:59 06:59 18:59 Intake Total 200 Output Total 2760 1800 3105 Balance -2760 -1800 -2905 Weight 79.832 kg Intake: IV 200 Output: Urine 322 [id number] 3107 Estimated Blood Loss 5 Other: Voiding Method Indwelling Catheter Indwelling Catheter Indwelling Catheter # Bowel Movements 1 - Labs CBC & Chem 7: 08/05/23 05:53 08/05/23 05:53 Labs: Abnormal Lab Results - Last 24 Hours (Table) 08/04/23 08/05/23 08/05/23 Range/Units 19:15 05:53 05:53 WBC 12.66 H (4.50-10.00) X 10*3/uL RBC 2.56 L (4.10-5.20) X 10*6/uL Hgb 7.5 L (12.0-15.0) d/dL Hct 24.8 L (37.2-46.3) % MCHC 30.2 L (32.0-37.0) d/dL RDW 18.3 H (11.5-14.5) % MPV 9.0 L (9.5-12.2) FL Eosinophils # 0.45 H (0.04-0.35) X 10*3/uL Chloride 111 H (96-109) mmol/L Creatinine 0.4 L (0.6-1.5) mg/dL BUN/Creatinine Ratio 36.75 H (12.00-20.00) Ratio POC Glucose (mg/dL) 152 H (70-110) mg/dL Calcium 8.1 L (8.7-10.3) mg/dL Assessment and Plan Time with Patient: Less than 30
[2023-08-05 20:26] LABS: Glucose,Whole Blood 245 mg/dL (70-110)
--- NOTE | 2023-08-05 21:18 | P.OP ---
Date of Procedure: 08/05/23 Description of Procedure: SURGEON: AARTI SNEED MD RVDA MASTER CERTIFIED RV TECHNICIAN: None. PREOPERATIVE DIAGNOSES: 1. Unstageable sacral decubitus ulcer 2. Dementia 3. Bipolar disorder 4. Deep venous thrombosis 5. Diabetes type 2, insulin-dependent 6. Iron deficiency anemia 7. History of transient ischemic attack 8. Hypertensive heart disease 9. Generalized anxiety disorder 10. Depressive disorder 11. Obesity due to excess calories, BMI 30.2 POSTOPERATIVE DIAGNOSES: 1. Sacrococcygeal decubitus ulcer, stage IV 2. Dementia 3. Bipolar disorder 4. Deep venous thrombosis 5. Diabetes type 2, insulin-dependent 6. Iron deficiency anemia 7. History of transient ischemic attack 8. Hypertensive heart disease 9. Generalized anxiety disorder 10. Depressive disorder 11. Obesity due to excess calories, BMI 30.2 PROCEDURES PERFORMED: 1. Sharp excisional debridement sacrococcygeal ulcer to bone 11 x 11 cm 2. Mechanical debridement using Pulsavac lavage 3 L normal saline 11 x 11 cm 3. Application of negative wound VAC therapy Anesthesia: GETA Estimated Blood Loss (ml): 20 Pathology: Aerobic and anaerobic culture sacrococcygeal wound, bone biopsy coccyx Condition: stable COMPLICATIONS: None. Operative Findings: 1. Sacrococcygeal stage IV ulcer to coccygeal bone 11 x 11 cm 2. 4 cm undermining at 9:00 in prone position 3. 1-cm undermining at 12:00 in prone position 4. Bone biopsy obtained of coccyx 5. Tunneling at 6:00 to muscle, 3 cm INDICATIONS: The patient is a 77-year-old female with recent stroke and lumbar surgery who developed unstageable ulcer over 6 weeks. Benefits and risks of surgical intervention were described including bleeding, infection, seroma, pain, wound dehiscence and recurrence. Informed consent was obtained. DESCRIPTION OR PROCEDURE: Patient was brought into the operating room. After general induction, she was positioned in prone position. The buttocks were prepped and draped in a standard sterile fashion with Betadine. Timeout protocol was confirmed with the surgical team regarding the patient's name, procedure to be performed including scheduled antibiotics. The wound explored with undermining found at 9:00 depth of 4 cm. Undermining also found at 12:00 by 1 cm. Tunneling identified at 6:00 3 cm. All fibrinous exudate was sharply excised using a #15 blade. Bone was palpated at the depths of wound consistent with the coccyx. Using a rongeur, bone biopsies were obtained of the coccyx for osteomyelitis. The bone was firm. Bleeding was controlled using pulse lavage 3 L normal saline. Depths of the wound was measured 11 cm with an 11 cm length. Sharply the edges of necrosis were excised using #15 blade. Bleeding was controlled with Bovie cautery. Anaerobic and aerobic cultures were obtained of the depth of the wound included a bone biopsy site. Next, black foam sponge was cut to the dimensions. Adhesive Tegaderm were placed. A disc suction was applied. Negative suction seal was confirmed. The wound VAC was set to -125 mmHg pressure. Additional sponge along the right buttock was placed to minimize pressure ulceration from the tubing. At the end of the procedure, needle, sponge, and instrument count was verified correct by surgical coordinator. The patient was transferred into the postanesthesia care unit in stable condition.
[2023-08-05] MEDS: ENOXAPARIN 80 MG/0.8 ML SYRINGE SQ SCH (21:36)
[2023-08-05] MEDS: haloperidoL 5 MG TAB PO SCH ×2 (21:37→22:20)
[2023-08-05] MEDS: SODIUM CHLORIDE 0.9% 1,000 ML IV SCH (22:08)
[2023-08-06] MEDS: AMPICILLIN-SULBACTAM 3 GM in SODIUM CHLORIDE 0.9% 100 ML IVPB SCH ×4 (04:34→23:14)
[2023-08-06 06:02] LABS: Glucose,Whole Blood 138 mg/dL (70-110)
[2023-08-06] MEDS: INSULIN ASPART (NovoLOG) 100 UNIT/ML VIAL SQ SCH ×5 (06:12→19:53)
[2023-08-06] MEDS: LACTATED RINGERS 1,000 ML IV SCH (08:27)
[2023-08-06] MEDS: polyethylene glycoL 3350 17 GM POWD.PACK PO SCH ×2 (08:44→19:59)
[2023-08-06] MEDS: LACTULOSE 20 GM/30 ML CUP PO SCH ×2 (08:44→19:59)
[2023-08-06] MEDS: VANCOMYCIN 1,500 MG in SODIUM CHLORIDE 0.9% 500 ML 500 ML IVPB SCH ×2 (08:45→20:00)
[2023-08-06] MEDS: droNABinol 2.5 MG CAP PO SCH ×2 (08:45→20:02)
[2023-08-06] MEDS: SENNOSIDES-DOCUSATE SODIUM 1 EACH TAB PO SCH ×2 (08:45→19:59)
[2023-08-06] MEDS: GABAPENTIN 100 MG CAP PO SCH ×2 (08:46→20:02)
[2023-08-06] MEDS: LINAGLIPTIN 5 MG TABLET PO SCH (08:46)
[2023-08-06] MEDS: HYDROcodone/APAP 5-325MG 1 EACH TAB PO PRN ×2 (08:46→18:12)
[2023-08-06] MEDS: FAMOTIDINE 20 MG TAB PO SCH (08:46)
[2023-08-06] MEDS: MULTIVITAMINS, THERA 1 EACH TAB PO SCH (08:46)
[2023-08-06] MEDS: CHOLECALCIFEROL 25 MCG (1000 IU) TABLET PO SCH (08:46)
[2023-08-06] MEDS: FERROUS SULFATE 325 MG TAB PO SCH (08:46)
[2023-08-06] MEDS: METOPROLOL TARTRATE 25 MG TAB PO SCH ×3 (08:46→20:02)
[2023-08-06] MEDS: BACITRACIN OINT 1 EACH PACKET TOPICAL SCH ×2 (08:47→20:01)
[2023-08-06] MEDS: BENZTROPINE MESYLATE 1 MG TAB PO SCH ×2 (08:47→20:02)
[2023-08-06] MEDS: ASCORBIC ACID 500 MG TAB PO SCH (08:47)
[2023-08-06] MEDS: ENOXAPARIN 80 MG/0.8 ML SYRINGE SQ SCH ×2 (08:48→20:02)
[2023-08-06] MEDS: COLLAGENASE 250 UNIT/GM OINTMENT 30 GM TUBE TOPICAL SCH (09:23)
[2023-08-06] MEDS: DICLOFENAC SODIUM GEL 100 GM TUBE TOPICAL SCH ×4 (10:57→20:03)
--- NOTE | 2023-08-06 11:14 | P.PN ---
Subjective Progress Note Date: 08/06/23 CHIEF COMPLAINT: Sacral decubitus ulcer HISTORY OF PRESENT ILLNESS: Patient postop day #1 status post sharp excisional debridement of the sacrococcygeal ulcer to bone with wound VAC placement. Patient lying in bed comfortably. Wound VAC is in place. Afebrile. WBC 12.66 PHYSICAL EXAM: VITAL SIGNS: Reviewed GENERAL: Well-developed in no acute distress. HEENT: No sclera icterus. Extraocular movements grossly intact. Moist buccal mucosa. Head is atraumatic, normocephalic. Hears conversational speech. No nasal drainage. NECK: Supple without lymphadenopathy. CHEST: Non-labored respirations and equal bilateral excursions. CARDIOVASCULAR: Palpable 2+ radial pulses. ABDOMEN: Soft. Nondistended. Nontender. MUSCULOSKELETAL: No clubbing or cyanosis. NEUROLOGIC: No focal or lateralizing signs. Cranial nerves II through XII grossly intact. PSYCH: Awake and alert SKIN: Large Sacral decubitus ulcer with wound vac placed ASSESSMENT: 1. Sacrococcygeal decubitus ulcer, stage IV 2. Dementia 3. Bipolar disorder 4. Deep venous thrombosis 5. Diabetes type 2, insulin-dependent 6. Iron deficiency anemia 7. History of transient ischemic attack 8. Hypertensive heart disease 9. Generalized anxiety disorder 10. Depressive disorder 11. Obesity due to excess calories, BMI 30.2 PLAN: -Continue wound VAC. Wound VAC to be changed Saturday, Saturday, Saturday -Continue offloading -Continue antibiotics -Continue high protein diet Physician Area Sales Manager note has been reviewed by physician. Signing provider agrees with the documented findings, assessment, and plan of care. Objective - Vital Signs Vital signs: Vital Signs Temp 98.1 F 08/06/23 07:48 Pulse 87 08/06/23 07:48 Resp 18 08/06/23 07:48 BP 151/80 08/06/23 07:48 Pulse Ox 100 08/06/23 07:48 FiO2 Intake & Output 08/05/23 08/06/23 08/06/23 18:59 06:59 18:59 Intake Total 450 Output Total 3105 1300 Balance -2655 -1300 Weight 79.832 kg Intake: IV 450 Output: Urine 3100 1300 Estimated Blood Loss 5 Other: Voiding Method Indwelling Catheter Indwelling Catheter Indwelling Catheter # Voids 1 # Bowel Movements 2 - Labs CBC & Chem 7: 08/05/23 05:53 08/05/23 05:53 Labs: Abnormal Lab Results - Last 24 Hours (Table) 08/05/23 08/06/23 Range/Units 20:24 05:59 POC Glucose (mg/dL) 245 H 138 H (70-110) mg/dL
[2023-08-06 12:09] LABS: Glucose,Whole Blood 170 mg/dL (70-110)
--- NOTE | 2023-08-06 14:42 | P.PN ---
Subjective Progress Note Date: 08/06/23 Principal diagnosis: Infected sacral pressure ulcer Patient is a 77-year-old -Monegasque female with a past medical history significant for hypertension diabetes mellitus dementia CVA TIA patient recently did have 2 stay at [facility] initial 1 was for possible discitis and this patient apparently did have a E. coli infection and was advised a 6-week course of IV Rocephin subsequently readmitted to the [facility] with worsening wound to the sacral area s/p debridement culture positive for Enterococcus faecalis antibiotic was switched over to Unasyn 3 g every 6 hours, patient has not been brought to [facility] ER with worsening sacral wound. Patient is status post Sharp excisional debridement sacrococcygeal ulcer to bone 11 x 11 cm completed on 08/05/2023 along with a deep cultures On today's evaluation that is 08/06/2023, the patient continues to be afebrile, the patient is breathing comfortably on room air and no need for supplemental oxygen, the patient denies any chest pain or cough , patient denies naus ea/vomiting and no diarrhea has been reported by the nursing staff Patient did have white count is down to 12.66, creatinine is 0.4 as of yesterday no laboratory today, deep OR culture currently pending Objective - Vital Signs Vital signs: Vital Signs Temp 98.1 F 08/06/23 07:48 Pulse 87 08/06/23 07:48 Resp 18 08/06/23 07:48 BP 151/80 08/06/23 07:48 Pulse Ox 100 08/06/23 07:48 FiO2 Intake & Output 08/05/23 08/06/23 08/06/23 18:59 06:59 18:59 Intake Total 450 Output Total 3105 1300 Balance -2655 -1300 Weight 79.832 kg Intake: IV 450 Output: Urine 3100 1300 Estimated Blood Loss 5 Other: Voiding Method Indwelling Catheter Indwelling Catheter Indwelling Catheter # Voids 1 # Bowel Movements 2 - Exam GENERAL DESCRIPTION: An elderly female lying in bed in no distress RESPIRATORY SYSTEM: Unlabored breathing , clear to auscultation anteriorly HEART: S1 S2 regular rate and rhythm , ABDOMEN: Soft , no tenderness EXTREMITIES: No edema feet Patient did have a stage IV sacral pressure ulcer with some slough tissue - Labs CBC & Chem 7: 08/05/23 05:53 08/05/23 05:53 Labs: Abnormal Lab Results - Last 24 Hours (Table) 08/05/23 08/06/23 Range/Units 20:24 05:59 POC Glucose (mg/dL) 245 H 138 H (70-110) mg/dL Assessment and Plan (1) Infected pressure ulcer Current Visit: Yes Status: Acute Code(s): L89.90 - PRESSURE ULCER OF UNSPECIFIED SITE, UNSPECIFIED STAGE; L08.9 - LOCAL INFECTION OF THE SKIN AND SUBCUTANEOUS TISSUE, UNSP SNOMED Code(s): 518247862 (2) Sacral decubitus ulcer Current Visit: Yes Status: Acute Code(s): L89.159 - PRESSURE ULCER OF SACRAL REGION, UNSPECIFIED STAGE SNOMED Code(s): 566086175 Plan: 1patient being brought into the hospital with a worsening wound to the sacral area which apparently was recently acquired during one of her hospital stay with a recent admission at [facility] initial notes for discitis subsequently for worsening wound infection that was debrided and culture positive for Enterococcus faecalis patient was getting Unasyn now being admitted to the hospital with worsening wound patient did have significant slough tissue and would require surgical debridement and deep culture and may need diverting colostomy to prevent recurrent stool contamination of her sacral wound and wound VAC placement, 2-Patient apparently has refused diverting colostomy , the patient is status post Sharp excisional debridement sacrococcygeal ulcer to bone 11 x 11 cm along with deep culture which will be followed 3- patient to continue with the vancomycin along with Unasyn while waiting for the culture finalized to determine her discharge antibiotics Dictation was produced using [employer] dictation software. please excuse any grammatical, word or spelling errors. Time with Patient: Less than 30
[2023-08-06 16:52] LABS: Glucose,Whole Blood 162 mg/dL (70-110)
[2023-08-06 19:53] LABS: Glucose,Whole Blood 112 mg/dL (70-110)
[2023-08-06] MEDS: haloperidoL 5 MG TAB PO SCH (20:02)
--- NOTE | 2023-08-06 20:05 | P.PN ---
Progress Note - Text Progress Note Date: 08/06/23 Chief Complaint: Decubital ulcer This is a 77-year-old patient, at rehab at [facility]. Being followed by Dr. Mijares. Chronic stable medical conditions includes dementia, diabetes, hypertension, osteoarthritis, bipolar. Most of the history is obtained by the granddaughter the bedside. Approximately 4 weeks ago patient was sent to [facility] where patient was found to have discitis in the lumbar area. Patient got surgery for the same and rods reported the spine. Patient did come back to rehab. Further change in mental status patient is sent back to [facility] again. Patient had been septic. Is on IV Zosyn. Supposed to get a total of 6 weeks. Being followed by infectious disease. His started off with bedsores that has progressively gotten worse. Local wound care has continued. As a sacral decubiti this became larger patient sent back to the ER for further treatment. As per the granddaughter they'll prefer to have treatment done here and not cold to [place] if that can be avoided. At her baseline currently patient is able to walk about 10-15 steps with physical therapy. Patient has been getting IV antibiotics via PICC line. Consultation to ID and vascular for wound care was done. July 31: In bed. Granddaughter the bedside. Patient's son on the phone. That questions about surgery in the wound. Did direct him to infectious disease and vascular. I did get a call from patient's family doctor Dr. Mijares bedside and is requesting's another surgeon from Dr. Mullen and either Dr. Nguyen or Dr. Sierra. Spoke to Samaria the surgical PLASTICS SHEET FINISHING PRESS OPERATOR.. Dr. Nguyen's electronic scanner operator been consulted for the same. Patient is on IV Unasyn and vancomycin. Eating well. Patient's colostomy is being scheduled. Patient herself does not want a coloscopy. But patient's son who is the POA wishes to proceed with the same. There is only very way the wound might heal. The wound is rather extensive August 01: Patient is seen by Dr. Nguyen from general surgery. She spoke to me. Patient being scheduled for surgery on Saturday. She spoke to the patient's son. We'll start the patient and subcu Lovenox 80 mg every 12. Last dose will be on Saturday evening been held. Other medications to continue including antibiotics per Dr. Abreu. Patient eating well. Discussed with patient granddaughter the bedside. August 06: I resumed care of the patient today. Patient's son, KAILYN as per patient wishes decided not to proceed with colostomy. Patient yesterday underwent debridement by Dr. Nguyen. Wound VAC is placed. Otherwise patient appears to be comfortable. Eating fair. Discussed with Dr. Griffith from [place]. Pending deep wound cultures. I discussed length with patient's son over the phone. Prognosis guarded given patient's age immobility and that wound VAC can only stay for so long. Also discussed with patient's family doctor Dr. Mijares. Discussed the nurse. Total time spent over 1 hour with over 40 minutes of discussion Active Medications Acetaminophen (Acetaminophen Tab 500 Mg Tab) 500 mg PO Q6HR PRN PRN Reason: Fever and/ or Pain Last Admin: 08/04/23 15:58 Dose: 500 mg Hydrocodone Bitart/Acetaminophen (Hydrocodone/Apap 5-325mg 1 Each Tab) 1 each PO Q4HR PRN PRN Reason: Pain Last Admin: 08/06/23 18:12 Dose: 1 each Ascorbic Acid (Ascorbic Acid 500 Mg Tab) 250 mg PO DAILY LAUREN Last Admin: 08/06/23 08:47 Dose: 250 mg Bacitracin (Bacitracin Oint 1 Each Packet) 1 each TOPICAL BID [facility]; Protocol Last Admin: 08/06/23 08:47 Dose: 1 each Benztropine Mesylate (Benztropine Mesylate 1 Mg Tab) 2 mg PO BID LAUREN Last Admin: 08/06/23 08:47 Dose: 2 mg Cholecalciferol (Cholecalciferol 25 Mcg (1000 Iu) Tablet) 50 mcg PO DAILY LAUREN Last Admin: 08/06/23 08:46 Dose: 50 mcg Collagenase (Collagenase 250 Unit/Gm Ointment 30 Gm Tube) 1 applic TOPICAL DAILY [facility]; Protocol Last Admin: 08/06/23 09:23 Dose: Not Given Dextrose/Water (Dextrose 50% Syringe 50 Ml) 25 ml IVP PER PROTOCOL PRN; Protocol PRN Reason: Hypoglycemia Dextrose/Water (Dextrose 50% Syringe 50 Ml) 50 ml IVP PER PROTOCOL PRN; Protocol PRN Reason: Hypoglycemia Diclofenac Sodium (Diclofenac Sodium Gel 100 Gm Tube) 2 gm TOPICAL QID ALUREN; Protocol Last Admin: 08/06/23 17:51 Dose: Not Given Dronabinol (Dronabinol 2.5 Mg Cap) 2.5 mg PO BID [facility] Last Admin: 08/06/23 08:45 Dose: 2.5 mg Enoxaparin Sodium (Enoxaparin 80 Mg/0.8 Ml Syringe) 80 mg SQ Q12HR [facility] Last Admin: 08/06/23 08:48 Dose: 80 mg Famotidine (Famotidine 20 Mg Tab) 20 mg PO DAILY [facility] Last Admin: 08/06/23 08:46 Dose: 20 mg Ferrous Sulfate (Ferrous Sulfate 325 Mg Tab) 325 mg PO DAILY [facility] Last Admin: 08/06/23 08:46 Dose: 325 mg Gabapentin (Gabapentin 100 Mg Cap) 100 mg PO BID [facility] Last Admin: 08/06/23 08:46 Dose: 100 mg Haloperidol (Haloperidol 5 Mg Tab) 2.5 mg PO HS [facility] Last Admin: 08/05/23 22:20 Dose: Not Given Sodium Chloride (Saline 0.9%) 1,000 mls @ 20 mls/hr IV .Q24H [facility] Last Admin: 08/05/23 22:08 Dose: 20 mls/hr Vancomycin HCl 1,500 mg/ (Sodium Chloride) 500 mls @ 167 mls/hr IVPB Q12HR [facility] Last Admin: 08/06/23 08:45 Dose: 167 mls/hr Ampicillin Sodium/Sulbactam (Sodium 3 gm/ Sodium Chloride) 100 mls @ 200 mls/hr IVPB Q6H [facility]; Protocol Last Admin: 08/06/23 17:14 Dose: 200 mls/hr Lactated Ringer's (Lactated Ringers) 1,000 mls @ 20 mls/hr IV .Q24H [facility] Last Admin: 08/06/23 08:27 Dose: Not Given Insulin Aspart (Insulin Aspart (Novolog) 100 Unit/Ml Vial) 0 unit SQ ACHS [facility]; Protocol Last Admin: 08/06/23 19:53 Dose: Not Given Lactulose (Lactulose 20 Gm/30 Ml Cup) 30 gm PO BID [facility] Last Admin: 08/06/23 19:59 Dose: Not Given Linagliptin (Linagliptin 5 Mg Tablet) 5 mg PO DAILY [facility] Last Admin: 08/06/23 08:46 Dose: 5 mg Magnesium Hydroxide (Magnesium Hydroxide 2,400 Mg/30 Ml Cup) 2,400 mg PO Q72H PRN PRN Reason: Constipation Metoprolol Tartrate (Metoprolol Tartrate 25 Mg Tab) 25 mg PO TID [facility] Last Admin: 08/06/23 17:14 Dose: 25 mg Miscellaneous Information (Magnesium Replacement Protocol 1 Each Misc) 1 each MISCELLANE DAILY PRN; Protocol PRN Reason: Per Protocol Multivitamins (Multivitamins, Thera 1 Each Tab) 1 each PO DAILY [facility] Last Admin: 08/06/23 08:46 Dose: 1 each Naloxone HCl (Naloxone 0.4 Mg/Ml 1 Ml Vial) 0.2 mg IV Q2M PRN PRN Reason: Opioid Reversal Ondansetron HCl (Ondansetron 4 Mg/2 Ml Vial) 4 mg IVP Q8HR PRN PRN Reason: Nausea And Vomiting Polyethylene Glycol (Polyethylene Glycol 3350 17 Gm Powd.Pack) 17 gm PO BID [facility] Last Admin: 08/06/23 19:59 Dose: Not Given Senna/Docusate Sodium (Sennosides-Docusate Sodium 1 Each Tab) 1 each PO BID [facility] Last Admin: 08/06/23 19:59 Dose: Not Given Past medical history to include: Dementia, diabetes, hypertension, osteoarthritis,, bipolar, discitis-lumbar Social history: No smoking or alcohol history. Currently at rehab at [facility]. Patient's son Ar Ramírez is the POA. Physical examination: VITAL SIGNS: 98.2, 92, 18, 1:30/74, 100% room air GENERAL: Reclining in bed, comfortable EYES: Pupils equal. Conjunctiva normal. HEENT: External appearance of nose and ears normal, oral cavity grossly normal. NECK: JVD not raised; masses not palpable. HEART: First and second heart sounds are normal; no edema. LUNGS: Respiratory rate normal; clear to auscultation. ABDOMEN: Soft, nontender, liver spleen not palpable, no masses palpable. [place] PSYCH: [Able to answer simple questions. Patient stating I do not want co lostomy DERMATOLOGICAL: Large sacral decubitus ulcer down to the bone. Pictures and nursing chart : Wound VAC MUSCULOSKELETAL:No Clubbing/cyanosis;muscles-grossly intact, OA INVESTIGATIONS, reviewed in the clinical context: August 05: White count 12.6 hemoglobin 7.5 platelets 352 potassium 3.6 creatinine 0.4 August 01: White count 11.8 hemoglobin 8 potassium 3.4 creatinine 0.47 July 30: White count 8.5 hemoglobin 8.4 platelets 477 potassium 4.1 BUN 5 creatinine 0.37 CRP 3.3 proBNP 3220 TSH 1.3 EKG tracing personally reviewed by me-normal sinus rhythm. Nonspecific ST-T wave changes. Assessment and plan: -Stage IV large sacral decubitus ulcer. Per ID patient was positive for Enterococcus faecalis and was getting IV Unasyn.: Consults vascular Dr. Cobb. ID Dr. Abreu. Surgery Dr. Nguyen. As per patient wishes and the son no diverting colostomy. Debridement care of by Dr. Nguyen on August 05. -Chronic medical debility. -Chronic constipation MiraLAX, senna plus, lactulose -Diabetes mellitus type 2 Sepuvia. Follow Accu-Cheks with sliding scale -Essential hypertension Lopressor 25 mg twice a day -Recent History of lumbar discitis. Patient had surgery for the same. received antibiotics. -Cognitive impairment -Full code -Ar FLANAGAN. Son Continue current treatment plan. Pending cultures. Discussed as above.
[2023-08-06] MEDS: SODIUM CHLORIDE 0.9% 1,000 ML IV SCH (22:16)
[2023-08-07] MEDS: HYDROcodone/APAP 5-325MG 1 EACH TAB PO PRN ×2 (03:34→10:22)
[2023-08-07] MEDS: AMPICILLIN-SULBACTAM 3 GM in SODIUM CHLORIDE 0.9% 100 ML IVPB SCH ×3 (04:59→18:42)
[2023-08-07 06:03] LABS: Glucose,Whole Blood 130 mg/dL (70-110)
[2023-08-07] MEDS: INSULIN ASPART (NovoLOG) 100 UNIT/ML VIAL SQ SCH ×4 (06:13→19:58)
[2023-08-07 08:14] LABS: African American GFR (CKD) >90 (>60 ml/min/1.73 sqM); Non-African American GFR(CKD) >90 (>60 ml/min/1.73 sqM)
[2023-08-07] MEDS: SENNOSIDES-DOCUSATE SODIUM 1 EACH TAB PO SCH ×2 (09:13→20:30)
[2023-08-07] MEDS: LACTULOSE 20 GM/30 ML CUP PO SCH ×2 (09:13→20:30)
[2023-08-07] MEDS: polyethylene glycoL 3350 17 GM POWD.PACK PO SCH ×2 (09:13→20:30)
[2023-08-07] MEDS: BACITRACIN OINT 1 EACH PACKET TOPICAL SCH ×2 (09:18→20:11)
[2023-08-07] MEDS: ASCORBIC ACID 500 MG TAB PO SCH (09:18)
[2023-08-07] MEDS: COLLAGENASE 250 UNIT/GM OINTMENT 30 GM TUBE TOPICAL SCH (09:19)
[2023-08-07] MEDS: BENZTROPINE MESYLATE 1 MG TAB PO SCH ×3 (09:19→20:10)
[2023-08-07] MEDS: CHOLECALCIFEROL 25 MCG (1000 IU) TABLET PO SCH (09:19)
[2023-08-07] MEDS: DICLOFENAC SODIUM GEL 100 GM TUBE TOPICAL SCH ×4 (09:20→23:31)
[2023-08-07] MEDS: GABAPENTIN 100 MG CAP PO SCH ×2 (09:21→20:11)
[2023-08-07] MEDS: ENOXAPARIN 80 MG/0.8 ML SYRINGE SQ SCH ×2 (09:21→20:11)
[2023-08-07] MEDS: METOPROLOL TARTRATE 25 MG TAB PO SCH ×3 (09:21→20:09)
[2023-08-07] MEDS: FERROUS SULFATE 325 MG TAB PO SCH (09:21)
[2023-08-07] MEDS: MULTIVITAMINS, THERA 1 EACH TAB PO SCH (09:21)
[2023-08-07] MEDS: droNABinol 2.5 MG CAP PO SCH ×3 (09:21→20:10)
[2023-08-07] MEDS: FAMOTIDINE 20 MG TAB PO SCH (09:21)
[2023-08-07] MEDS: LINAGLIPTIN 5 MG TABLET PO SCH (09:21)
[2023-08-07] MEDS: VANCOMYCIN 1,500 MG in SODIUM CHLORIDE 0.9% 500 ML 500 ML IVPB SCH (10:01)
[2023-08-07 11:25] LABS: Glucose,Whole Blood 175 mg/dL (70-110)
[2023-08-07 11:39] LABS: Basophils # (A) 0.04 X 10*3/uL (0.00-0.10); Basophils % (A) 0.3 %; Eosinophils # (A) 0.27 X 10*3/uL (0.04-0.35); Eosinophils % (A) 2.1 %; HCT 22.8 % (37.2-46.3); HGB 6.7 g/dL (12.0-15.0); Lymphocytes # (A) 4.55 X 10*3/uL (0.90-5.00); Lymphocytes % (A) 34.7 %; MCH 29.4 pg (27.0-32.0); MCHC 29.4 g/dL (32.0-37.0); Mean Platelet Volume 9.3 FL (9.5-12.2); Monocytes # (A) 0.87 X 10*3/uL (0.20-1.00); Monocytes % (A) 6.6 %; NRBC Per 100 WBC 0.03 X 10*3/uL (0.00-0.01); Neutrophils # (A) 7.23 X 10*3/uL (1.80-7.70); Neutrophils % (A) 55.2 %; Platelet Count 341 X 10*3/uL (140-440); RBC 2.28 X 10*6/uL (4.10-5.20); RDW 19.1 % (11.5-14.5); WBC 13.11 X 10*3/uL (4.50-10.00)
--- NOTE | 2023-08-07 12:01 | P.PN ---
Subjective Progress Note Date: 08/07/23 CHIEF COMPLAINT: Sacral decubitus ulcer HISTORY OF PRESENT ILLNESS: Patient postop day #2 status post sharp excisional debridement of the sacrococcygeal ulcer to bone with wound VAC placement. Patient lying in bed comfortably. Wound VAC tubing apparently got plugged last night from blood clots. Patient's wound VAC is currently off. She has wet to dry dressing in place. Afebrile. WBC is up from 12.6-13.1 Hgb 7.5 down to 6.7 platelets 341 PHYSICAL EXAM: VITAL SIGNS: Reviewed GENERAL: Well-developed in no acute distress. HEENT: No sclera icterus. Extraocular movements grossly intact. Moist buccal mucosa. Head is atraumatic, normocephalic. Hears conversational speech. No nasal drainage. NECK: Supple without lymphadenopathy. CHEST: Non-labored respirations and equal bilateral excursions. CARDIOVASCULAR: Palpable 2+ radial pulses. ABDOMEN: Soft. Nondistended. Nontender. MUSCULOSKELETAL: No clubbing or cyanosis. NEUROLOGIC: No focal or lateralizing signs. Cranial nerves II through XII grossly intact. PSYCH: Awake and alert SKIN: Large Sacral decubitus ulcer with wet to dry dressing ASSESSMENT: 1. Sacrococcygeal decubitus ulcer, stage IV 2. Dementia 3. Bipolar disorder 4. Deep venous thrombosis 5. Diabetes type 2, insulin-dependent 6. Iron deficiency anemia 7. History of transient ischemic attack 8. Hypertensive heart disease 9. Generalized anxiety disorder 10. Depressive disorder 11. Obesity due to excess calories, BMI 30.2 PLAN: -New wound VAC dressing to be placed this morning -Continue offloading -Continue antibiotics -Continue high protein diet -Continue Brandan protein supplement -Recommend blood transfusion for hemoglobin of 6.7 Physician Plaster Machine Tender note has been reviewed by physician. Signing provider agrees with the documented findings, assessment, and plan of care. Objective - Vital Signs Vital signs: Vital Signs Temp 98.6 F 08/07/23 06:58 Pulse 87 08/07/23 06:58 Resp 16 08/07/23 06:58 BP 125/69 08/07/23 06:58 Pulse Ox 99 08/07/23 06:58 FiO2 Intake & Output 08/06/23 08/07/23 08/07/23 18:59 06:59 18:59 Intake Total 240 Output Total 7718 366 7637 Balance -1200 -360 -1000 Intake: Intake, IV Titration 240 Amount Sodium Chloride 0.9% 1, 240 000 ml @ 20 mls/hr IV . Q24H [facility] Rx#:[id number] Output: Urine 3132 394 6246 Other: Voiding Method Indwelling Catheter Indwelling Catheter # Bowel Movements 1 - Labs CBC & Chem 7: 08/07/23 07:24 08/07/23 07:24 Labs: Abnormal Lab Results - Last 24 Hours (Table) 08/06/23 08/06/23 08/06/23 Range/Units 12:07 16:50 19:50 Creatinine (0.52-1.04) mg/dL POC Glucose (mg/dL) 170 H 162 H 112 H (70-110) mg/dL 08/07/23 08/07/23 Range/Units 06:00 07:24 Creatinine 0.48 L (0.52-1.04) mg/dL POC Glucose (mg/dL) 130 H (70-110) mg/dL Microbiology - Last 24 Hours (Table) 08/05/23 16:57 Gram Stain - Preliminary Other - Other Wound Culture - Preliminary Gram Neg Bacilli 08/05/23 16:57 Gram Stain - Preliminary Other - Other
[2023-08-07] MEDS: LACTATED RINGERS 1,000 ML IV SCH (12:21)
[2023-08-07 17:11] LABS: Glucose,Whole Blood 177 mg/dL (70-110)
[2023-08-07 19:58] LABS: Glucose,Whole Blood 123 mg/dL (70-110)
[2023-08-07] MEDS: ACETAMINOPHEN TAB 500 MG TAB PO PRN (20:09)
[2023-08-07] MEDS: haloperidoL 5 MG TAB PO SCH (20:10)
--- NOTE | 2023-08-07 20:42 | P.PN ---
Progress Note - Text Progress Note Date: 08/07/23 Chief Complaint: Decubital ulcer This is a 77-year-old patient, at rehab at [facility]. Being followed by Dr. Mijares. Chronic stable medical conditions includes dementia, diabetes, hypertension, osteoarthritis, bipolar. Most of the history is obtained by the granddaughter the bedside. Approximately 4 weeks ago patient was sent to [facility] where patient was found to have discitis in the lumbar area. Patient got surgery for the same and rods reported the spine. Patient did come back to rehab. Further change in mental status patient is sent back to [facility] again. Patient had been septic. Is on IV Zosyn. Supposed to get a total of 6 weeks. Being followed by infectious disease. His started off with bedsores that has progressively gotten worse. Local wound care has continued. As a sacral decubiti this became larger patient sent back to the ER for further treatment. As per the granddaughter they'll prefer to have treatment done here and not cold to [place] if that can be avoided. At her baseline currently patient is able to walk about 10-15 steps with physical therapy. Patient has been getting IV antibiotics via PICC line. Consultation to ID and vascular for wound care was done. July 31: In bed. Granddaughter the bedside. Patient's son on the phone. That questions about surgery in the wound. Did direct him to infectious disease and vascular. I did get a call from patient's family doctor Dr. Mijares bedside and is requesting's another surgeon from Dr. Mullen and either Dr. Nguyen or Dr. Sierra. Spoke to Samaria the surgical [employer].. Dr. Nguyen's loan documentation specialist been consulted for the same. Patient is on IV Unasyn and vancomycin. Eating well. Patient's colostomy is being scheduled. Patient herself does not want a coloscopy. But patient's son who is the POA wishes to proceed with the same. There is only very way the wound might heal. The wound is rather extensive August 01: Patient is seen by Dr. Nguyen from general surgery. She spoke to me. Patient being scheduled for surgery on Saturday. She spoke to the patient's son. We'll start the patient and subcu Lovenox 80 mg every 12. Last dose will be on Saturday evening been held. Other medications to continue including antibiotics per Dr. Abreu. Patient eating well. Discussed with patient granddaughter the bedside. August 06: I resumed care of the patient today. Patient's son, KAILYN as per patient wishes decided not to proceed with colostomy. Patient yesterday underwent debridement by Dr. Nguyen. Wound VAC is placed. Otherwise patient appears to be comfortable. Eating fair. Discussed with Dr. Griffith from [place]. Pending deep wound cultures. I discussed length with patient's son over the phone. Prognosis guarded given patient's age immobility and that wound VAC can only stay for so long. Also discussed with patient's family doctor Dr. Mijares. Discussed the nurse. Total time spent over 1 hour with over 40 minutes of discussion August 07: Patient dropped hemoglobin to 6.7. 1 unit of blood ordered. Anemia felt to be multifactorial including anemia of chronic disease and blood draws. No overt sign of any dark stools. Family member at the bedside this morning. Patient not eating much. Late I spoke to patient's son Ar the phone at length. Updated them. Questions answered. Did talk about CODE STATUS. DO NOT RESUSCITATE will be appropriate. He'll talk to family members and get back to m e. Stool occult blood ordered. Awaiting cultures to find less. Active Medications Acetaminophen (Acetaminophen Tab 500 Mg Tab) 500 mg PO Q6HR PRN PRN Reason: Fever and/ or Pain Last Admin: 08/07/23 20:09 Dose: 500 mg Hydrocodone Bitart/Acetaminophen (Hydrocodone/Apap 5-325mg 1 Each Tab) 1 each PO Q4HR PRN PRN Reason: Pain Last Admin: 08/07/23 10:22 Dose: 1 each Ascorbic Acid (Ascorbic Acid 500 Mg Tab) 250 mg PO DAILY [facility] Last Admin: 08/07/23 09:18 Dose: 250 mg Bacitracin (Bacitracin Oint 1 Each Packet) 1 each TOPICAL BID [facility]; Protocol Last Admin: 08/07/23 20:11 Dose: 1 each Benztropine Mesylate (Benztropine Mesylate 1 Mg Tab) 2 mg PO BID [facility] Last Admin: 08/07/23 20:10 Dose: 2 mg Cholecalciferol (Cholecalciferol 25 Mcg (1000 Iu) Tablet) 50 mcg PO DAILY [facility] Last Admin: 08/07/23 09:19 Dose: 50 mcg Collagenase (Collagenase 250 Unit/Gm Ointment 30 Gm Tube) 1 applic TOPICAL DAILY [facility]; Protocol Last Admin: 08/07/23 09:19 Dose: Not Given Dextrose/Water (Dextrose 50% Syringe 50 Ml) 25 ml IVP PER PROTOCOL PRN; Protocol PRN Reason: Hypoglycemia Dextrose/Water (Dextrose 50% Syringe 50 Ml) 50 ml IVP PER PROTOCOL PRN; Protoco l PRN Reason: Hypoglycemia Diclofenac Sodium (Diclofenac Sodium Gel 100 Gm Tube) 2 gm TOPICAL QID [facility]; Protocol Last Admin: 08/07/23 18:42 Dose: 2 gm Dronabinol (Dronabinol 2.5 Mg Cap) 2.5 mg PO BID [facility] Last Admin: 08/07/23 20:10 Dose: 2.5 mg Enoxaparin Sodium (Enoxaparin 80 Mg/0.8 Ml Syringe) 80 mg SQ Q12HR [facility] Last Admin: 08/07/23 20:11 Dose: 80 mg Famotidine (Famotidine 20 Mg Tab) 20 mg PO DAILY [facility] Last Admin: 08/07/23 09:21 Dose: 20 mg Ferrous Sulfate (Ferrous Sulfate 325 Mg Tab) 325 mg PO DAILY [facility] Last Admin: 08/07/23 09:21 Dose: 325 mg Gabapentin (Gabapentin 100 Mg Cap) 100 mg PO BID [facility] Last Admin: 08/07/23 20:11 Dose: 100 mg Haloperidol (Haloperidol 5 Mg Tab) 2.5 mg PO HS [facility] Last Admin: 08/07/23 20:10 Dose: 2.5 mg Sodium Chloride (Saline 0.9%) 1,000 mls @ 20 mls/hr IV .Q24H [facility] Last Admin: 08/06/23 22:16 Dose: Not Given Ampicillin Sodium/Sulbactam (Sodium 3 gm/ Sodium Chloride) 100 mls @ 200 mls/hr IVPB Q6H [facility]; Protocol Last Admin: 08/07/23 18:42 Dose: 200 mls/hr Lactated Ringer's (Lactated Ringers) 1,000 mls @ 20 mls/hr IV .Q24H [facility] Last Admin: 08/07/23 12:21 Dose: Not Given Vancomycin HCl 1,250 mg/ (Sodium Chloride) 250 mls @ 125 mls/hr IVPB Q12H [facility] Insulin Aspart (Insulin Aspart (Novolog) 100 Unit/Ml Vial) 0 unit SQ ACHS [facility]; Protocol Last Admin: 08/07/23 19:58 Dose: Not Given Lactulose (Lactulose 20 Gm/30 Ml Cup) 30 gm PO BID [facility] Last Admin: 08/07/23 20:30 Dose: Not Given Linagliptin (Linagliptin 5 Mg Tablet) 5 mg PO DAILY [facility] Last Admin: 08/07/23 09:21 Dose: 5 mg Magnesium Hydroxide (Magnesium Hydroxide 2,400 Mg/30 Ml Cup) 2,400 mg PO Q72H PRN PRN Reason: Constipation Metoprolol Tartrate (Metoprolol Tartrate 25 Mg Tab) 25 mg PO TID [facility] Last Admin: 08/07/23 20:09 Dose: 25 mg Miscellaneous Information (Magnesium Replacement Protocol 1 Each Misc) 1 each MISCELLANE DAILY PRN; Protocol PRN Reason: Per Protocol Multivitamins (Multivitamins, Thera 1 Each Tab) 1 each PO DAILY [facility] Last Admin: 08/07/23 09:21 Dose: 1 each Naloxone HCl (Naloxone 0.4 Mg/Ml 1 Ml Vial) 0.2 mg IV Q2M PRN PRN Reason: Opioid Reversal Ondansetron HCl (Ondansetron 4 Mg/2 Ml Vial) 4 mg IVP Q8HR PRN PRN Reason: Nausea And Vomiting Polyethylene Glycol (Polyethylene Glycol 3350 17 Gm Powd.Pack) 17 gm PO BID [facility] Last Admin: 08/07/23 20:30 Dose: Not Given Senna/Docusate Sodium (Sennosides-Docusate Sodium 1 Each Tab) 1 each PO BID [facility] Last Admin: 08/07/23 20:30 Dose: Not Given Past medical history to include: Dementia, diabetes, hypertension, osteoarthritis,, bipolar, discitis-lumbar Social history: No smoking or alcohol history. Currently at rehab at [facility]. Patient's son Ar Ramírez is the POA. Physical examination: VITAL SIGNS: 99.2, 90, 16, 131/76, 90% room air GENERAL: Reclining in bed, comfortable EYES: Pupils equal. Conjunctiva normal. HEENT: External appearance of nose and ears normal, oral cavity grossly normal. NECK: JVD not raised; masses not palpable. HEART: First and second heart sounds are normal; no edema. LUNGS: Respiratory rate normal; clear to auscultation. ABDOMEN: Soft, nontender, liver spleen not palpable, no masses palpable. [place] PSYCH: [Able to answer simple questions. Patient stating I do not want colostomy DERMATOLOGICAL: Large sacral decubitus ulcer down to the bone. Pictures and nursing chart : Wound VAC MUSCULOSKELETAL:No Clubbing/cyanosis;muscles-grossly intact, OA INVESTIGATIONS, reviewed in the clinical context: August 07: White count 13.1 hemoglobin 6.7 platelets 341 August 05: White count 12.6 hemoglobin 7.5 platelets 352 potassium 3.6 creatinine 0.4 August 01: White count 11.8 hemoglobin 8 potassium 3.4 creatinine 0.47 July 30: White count 8.5 hemoglobin 8.4 platelets 477 potassium 4.1 BUN 5 creatinine 0.37 CRP 3.3 proBNP 3220 TSH 1.3 EKG tracing personally reviewed by me-normal sinus rhythm. Nonspecific ST-T wave changes. Assessment and plan: -Stage IV large sacral decubitus ulcer. Per ID patient was positive for Enterococcus faecalis and was getting IV Unasyn.: Consults vascular Dr. Cobb. ID Dr. Abreu. Surgery Dr. Nguyen. As per patient wishes and the son no diverting colostomy. Debridement care of by Dr. Nguyen on August 05. -Anemia felt to be multifactorial. Including anemia of chronic disease. Blood draw anemia. And possibly some loss during debridement.: New diagnosis Transfuse 1 unit of blood. Stool occult blood. Patient being followed by Dr. Nguyen. -Chronic medical debility. -Chronic constipation MiraLAX, senna plus, lactulose -Diabetes mellitus type 2 Sepuvia. Follow Accu-Cheks with sliding scale -Essential hypertension Lopressor 25 mg twice a day -Recent History of lumbar discitis. Patient had surgery for the same. received antibiotics. -Cognitive impairment -Full code -Ar FLANAGAN. Son 1 unit of blood. Stool occult blood. Follow labs. Encourage oral intake. Advance care planning: [08/07/2023] Spoke with the son Ar the phone. Spoke over patient's overall cardiac prognosis. Decreased mobility. Large decubitus wound. Age. Discussed the appropriateness of DO NOT RESUSCITATE. Questions answered. Patient's unmanageable discussed other siblings and get back to me. Meantime patient to remain full code. Time spent for this about 25 minutes
[2023-08-07 22:08] LABS: Anisocytosis Slight; HCT 27.3 % (34.0-46.0); HGB 8.9 gm/dL (11.4-16.0); Hypochromasia Marked; MCH 30.5 pg (25.0-35.0); MCHC 32.6 g/dL (31.0-37.0); MCV 93.4 fL (80.0-100.0); Macrocytosis Slight; Platelet Count 326 k/uL (150-450); Poikilocytosis Slight; RBC 2.93 m/uL (3.80-5.40); RDW 19.6 % (11.5-15.5)
[2023-08-07] MEDS: SODIUM CHLORIDE 0.9% 1,000 ML IV SCH (23:20)
[2023-08-07] MEDS: VANCOMYCIN 1,250 MG in SODIUM CHLORIDE 0.9% 250 ML IVPB SCH (23:45)
[2023-08-08] LABS: Eosinophils # (M) 0.14 k/uL (0-0.7); Lymphocytes # (M) 5.74 k/uL (1.0-4.8); Neutrophils # (M) 7.56 k/uL (1.3-7.7); Neutrophils % (M) 54 %; Nucleated Red Blood Cells 1 /100 WBC (0-0); Total Cells Counted 200
[2023-08-08] MEDS: AMPICILLIN-SULBACTAM 3 GM in SODIUM CHLORIDE 0.9% 100 ML IVPB SCH ×5 (02:13→22:29)
[2023-08-08 06:15] LABS: Glucose,Whole Blood 119 mg/dL (70-110)
[2023-08-08] MEDS: INSULIN ASPART (NovoLOG) 100 UNIT/ML VIAL SQ SCH ×4 (06:46→20:13)
[2023-08-08 07:18] LABS: African American GFR (CKD) >90 (>60 ml/min/1.73 sqM); Non-African American GFR(CKD) >90 (>60 ml/min/1.73 sqM)
[2023-08-08] MEDS: polyethylene glycoL 3350 17 GM POWD.PACK PO SCH ×2 (09:47→20:14)
[2023-08-08] MEDS: SENNOSIDES-DOCUSATE SODIUM 1 EACH TAB PO SCH ×2 (09:47→20:13)
[2023-08-08] MEDS: LACTULOSE 20 GM/30 ML CUP PO SCH ×2 (09:47→20:14)
[2023-08-08] MEDS: LACTATED RINGERS 1,000 ML IV SCH (09:54)
[2023-08-08] MEDS: VANCOMYCIN 1,250 MG in SODIUM CHLORIDE 0.9% 250 ML IVPB SCH ×2 (10:02→23:29)
[2023-08-08] MEDS: GABAPENTIN 100 MG CAP PO SCH ×2 (10:06→20:12)
[2023-08-08] MEDS: METOPROLOL TARTRATE 25 MG TAB PO SCH ×3 (10:06→20:15)
[2023-08-08] MEDS: MULTIVITAMINS, THERA 1 EACH TAB PO SCH (10:06)
[2023-08-08] MEDS: FAMOTIDINE 20 MG TAB PO SCH (10:06)
[2023-08-08] MEDS: FERROUS SULFATE 325 MG TAB PO SCH (10:07)
[2023-08-08] MEDS: ASCORBIC ACID 500 MG TAB PO SCH (10:07)
[2023-08-08] MEDS: LINAGLIPTIN 5 MG TABLET PO SCH (10:07)
[2023-08-08] MEDS: CHOLECALCIFEROL 25 MCG (1000 IU) TABLET PO SCH (10:07)
[2023-08-08] MEDS: ENOXAPARIN 80 MG/0.8 ML SYRINGE SQ SCH ×2 (10:09→20:12)
[2023-08-08] MEDS: COLLAGENASE 250 UNIT/GM OINTMENT 30 GM TUBE TOPICAL SCH (10:10)
[2023-08-08] MEDS: BACITRACIN OINT 1 EACH PACKET TOPICAL SCH ×2 (10:10→20:13)
[2023-08-08] MEDS: DICLOFENAC SODIUM GEL 100 GM TUBE TOPICAL SCH ×4 (10:12→20:15)
[2023-08-08] MEDS: droNABinol 2.5 MG CAP PO SCH ×2 (10:19→20:12)
[2023-08-08 10:46] LABS: Glucose,Whole Blood 115 mg/dL (70-110)
--- NOTE | 2023-08-08 11:29 | P.PN ---
Subjective Progress Note Date: 08/07/23 Principal diagnosis: Infected sacral pressure ulcer Patient is a 77-year-old -Nigerien female with a past medical history significant for hypertension diabetes mellitus dementia CVA TIA patient recently did have 2 stay at [facility] initial 1 was for possible discitis and this patient apparently did have a E. coli infection and was advised a 6-week course of IV Rocephin subsequently readmitted to the [facility] with worsening wound to the sacral area s/p debridement culture positive for Enterococcus faecalis antibiotic was switched over to Unasyn 3 g every 6 hours, patient has not been brought to [facility] ER with worsening sacral wound. Patient is status post Sharp excisional debridement sacrococcygeal ulcer to bone 11 x 11 cm completed on 08/05/2023 along with a deep cultures On today's evaluation that is 08/07/2023, the patient remains to be afebrile, the patient is breathing comfortably on room air , the patient is sleepy and did not answer any question no vomiting diarrhea or any other changes reported by the family at the bedside Patient did have white count is slightly up to 14,000, creatinine is 0.37, deep OR culture currently growing gram-negative and yeast Objective - Vital Signs Vital signs: Vital Signs Temp 98.6 F 08/07/23 06:58 Pulse 87 08/07/23 06:58 Resp 16 08/07/23 06:58 BP 125/69 08/07/23 06:58 Pulse Ox 99 08/07/23 06:58 FiO2 Intake & Output 08/06/23 08/07/23 08/07/23 18:59 06:59 18:59 Intake Total 240 Output Total 5833 437 1409 Balance -1200 -360 -1000 Intake: Intake, IV Titration 240 Amount Sodium Chloride 0.9% 1, 240 000 ml @ 20 mls/hr IV . Q24H [facility] Rx#:[id number] Output: Urine 2348 286 1194 Other: Voiding Method Indwelling Catheter Indwelling Catheter # Bowel Movements 1 - Exam GENERAL DESCRIPTION: An elderly female lying in bed in no distress RESPIRATORY SYSTEM: Unlabored breathing , clear to auscultation anteriorly HEART: S1 S2 regular rate and rhythm , ABDOMEN: Soft , no tenderness EXTREMITIES: No edema feet Patient did have a stage IV sacral pressure ulcer with some slough tissue - Labs CBC & Chem 7: 08/07/23 21:16 08/08/23 06:40 Labs: Abnormal Lab Results - Last 24 Hours (Table) 08/06/23 08/06/23 08/06/23 Range/Units 12:07 16:50 19:50 Creatinine (0.52-1.04) mg/dL POC Glucose (mg/dL) 170 H 162 H 112 H (70-110) mg/dL 08/07/23 08/07/23 Range/Units 06:00 07:24 Creatinine 0.48 L (0.52-1.04) mg/dL POC Glucose (mg/dL) 130 H (70-110) mg/dL Microbiology - Last 24 Hours (Table) 08/05/23 16:57 Gram Stain - Preliminary Other - Other Wound Culture - Preliminary Gram Neg Bacilli Yeast 08/05/23 16:57 Gram Stain - Preliminary Other - Other Wound Culture - Preliminary Gram Neg Bacilli Assessment and Plan (1) Infected pressure ulcer Current Visit: Yes Status: Acute Code(s): L89.90 - PRESSURE ULCER OF UNSPECIFIED SITE, UNSPECIFIED STAGE; L08.9 - LOCAL INFECTION OF THE SKIN AND SUBCUTANEOUS TISSUE, UNSP SNOMED Code(s): 658658836 (2) Sacral decubitus ulcer Current Visit: Yes Status: Acute Code(s): L89.159 - PRESSURE ULCER OF SACRAL REGION, UNSPECIFIED STAGE SNOMED Code(s): 385907645 Plan: 1patient being brought into the hospital with a worsening wound to the sacral area which apparently was recently acquired during one of her hospital stay with a recent admission at [facility] initial notes for discitis subsequently for worsening wound infection that was debrided and culture positive for Enterococcus faecalis patient was getting Unasyn now being admitted to the hospital with worsening wound patient did have significant slough tissue and would require surgical debridement and deep culture and may need diverting colostomy to prevent recurrent stool contamination of her sacral wound and wound VAC placement, 2-Patient apparently has refused diverting colostomy , the patient is status post Sharp excisional debridement sacrococcygeal ulcer to bone 11 x 11 cm along with deep culture which are currently growing gram-negative and yeast 3- patient to continue with the vancomycin along with Unasyn while waiting for the culture finalized to determine her discharge antibiotics and monitor clinical course closely Dictation was produced using [employer] software. please excuse any grammatical, word or spelling errors. Time with Patient: Less than 30
--- NOTE | 2023-08-08 11:30 | P.PN ---
Subjective Progress Note Date: 08/08/23 Principal diagnosis: Infected sacral pressure ulcer Patient is a 77-year-old -Guyanese female with a past medical history significant for hypertension diabetes mellitus dementia CVA TIA patient recently did have 2 stay at [facility] initial 1 was for possible discitis and this patient apparently did have a E. coli infection and was advised a 6-week course of IV Rocephin subsequently readmitted to the [facility] with worsening wound to the sacral area s/p debridement culture positive for Enterococcus faecalis antibiotic was switched over to Unasyn 3 g every 6 hours, patient has not been brought to [facility] ER with worsening sacral wound. Patient is status post Sharp excisional debridement sacrococcygeal ulcer to bone 11 x 11 cm completed on 08/05/2023 along with a deep cultures On today's evaluation that is 08/08/2023, the patient continues to be afebrile, the patient is breathing comfortably on room air , the patient is sleepy and did not answer any question no vomiting diarrhea or any other changes reported by the nursing staff except the patient pulled out her PICC line last night Patient did have white count is slightly up to 14,000, creatinine is 0.37 as of yesterday labs are pending from this morning, deep OR culture currently growing gram-negative and yeast Objective - Vital Signs Vital signs: Vital Signs Temp 98.4 F 08/08/23 07:19 Pulse 92 08/08/23 07:19 Resp 18 08/08/23 07:19 BP 130/78 08/08/23 07:19 Pulse Ox 99 08/08/23 07:19 FiO2 Intake & Output 08/07/23 08/08/23 08/08/23 18:59 06:59 18:59 Intake Total 310 1240 Output Total 2000 1100 Balance -1690 140 Intake: Intake, IV Titration 930 Amount Ampicillin-Sulbactam 3 gm 200 In Sodium Chloride 0.9% 100 ml @ 200 mls/hr IVPB Q6H [facility] Rx#:[id number] Lactated Ringers 1,000 ml 240 @ 20 mls/hr IV .Q24H [facility] Rx#:[id number] Sodium Chloride 0.9% 1, 240 000 ml @ 20 mls/hr IV . Q24H [facility] Rx#:[id number] Vancomycin 1,250 mg In 250 Sodium Chloride 0.9% 250 ml @ 125 mls/hr IVPB Q12H [facility] Rx#:[id number] Blood Product 310 310 Rc As-1 Unit 310 [id number] Output: Urine 2000 1100 Other: Voiding Method Indwelling Catheter Indwelling Catheter Indwelling Catheter - Exam GENERAL DESCRIPTION: An elderly female lying in bed in no distress RESPIRATORY SYSTEM: Unlabored breathing , clear to auscultation anteriorly HEART: S1 S2 regular rate and rhythm , ABDOMEN: Soft , no tenderness EXTREMITIES: No edema feet Patient did have a stage IV sacral pressure ulcer with some slough tissue - Labs CBC & Chem 7: 08/07/23 21:16 08/08/23 06:40 Labs: Abnormal Lab Results - Last 24 Hours (Table) 08/05/23 08/07/23 08/07/23 Range/Units 15:37 07:24 17:10 WBC 13.11 H (4.50-10.00) X 10*3/uL RBC 2.28 L (4.10-5.20) X 10*6/uL Hgb 6.7 A* (12.0-15.0) g/dL Hct 22.8 L (37.2-46.3) % MCV 100.0 H (80.0-97.0) FL MCHC 29.4 L (32.0-37.0) g/dL RDW 19.1 H (11.5-14.5) % MPV 9.3 L (9.5-12.2) FL Lymphocytes # (Manual) (1.0-4.8) k/uL Nucleated RBCs (0-0) /100 WBC NRBC/100 WBC Diff 0.03 H (0.00-0.01) X 10*3/uL Creatinine (0.52-1.04) mg/dL POC Glucose (mg/dL) 177 H (70-110) mg/dL Crossmatch See Detail 08/07/23 08/07/23 08/08/23 Range/Units 19:56 21:16 06:08 WBC 14.0 H (4.50-10.00) X 10*3/uL RBC 2.93 L (4.10-5.20) X 10*6/uL Hgb 8.9 L (12.0-15.0) g/dL Hct 27.3 L (37.2-46.3) % MCV (80.0-97.0) FL MCHC (32.0-37.0) g/dL RDW 19.6 H (11.5-14.5) % MPV (9.5-12.2) FL Lymphocytes # (Manual) 5.74 H (1.0-4.8) k/uL Nucleated RBCs 1 H (0-0) /100 WBC NRBC/100 WBC Diff (0.00-0.01) X 10*3/uL Creatinine (0.52-1.04) mg/dL POC Glucose (mg/dL) 123 H 119 H (70-110) mg/dL Crossmatch 08/08/23 08/08/23 Range/Units 06:40 10:44 WBC (4.50-10.00) X 10*3/uL RBC (4.10-5.20) X 10*6/uL Hgb (12.0-15.0) g/dL Hct (37.2-46.3) % MCV (80.0-97.0) FL MCHC (32.0-37.0) g/dL RDW (11.5-14.5) % MPV (9.5-12.2) FL Lymphocytes # (Manual) (1.0-4.8) k/uL Nucleated RBCs (0-0) /100 WBC NRBC/100 WBC Diff (0.00-0.01) X 10*3/uL Creatinine 0.37 L (0.52-1.04) mg/dL POC Glucose (mg/dL) 115 H (70-110) mg/dL Crossmatch Microbiology - Last 24 Hours (Table) 08/05/23 16:57 Gram Stain - Preliminary Other - Other Wound Culture - Preliminary Gram Neg Bacilli Yeast 08/05/23 16:57 Gram Stain - Preliminary Other - Other Wound Culture - Preliminary Gram Neg Bacilli Assessment and Plan (1) Infected pressure ulcer Current Visit: Yes Status: Acute Code(s): L89.90 - PRESSURE ULCER OF UNSPECIFIED SITE, UNSPECIFIED STAGE; L08.9 - LOCAL INFECTION OF THE SKIN AND S UBCUTANEOUS TISSUE, UNSP SNOMED Code(s): 559308496 (2) Sacral decubitus ulcer Current Visit: Yes Status: Acute Code(s): L89.159 - PRESSURE ULCER OF SACRAL REGION, UNSPECIFIED STAGE SNOMED Code(s): 948696226 Plan: 1patient being brought into the hospital with a worsening wound to the sacral area which apparently was recently acquired during one of her hospital stay with a recent admission at [facility] initial notes for discitis subsequently for worsening wound infection that was debrided and culture positive for Enterococcus faecalis patient was getting Unasyn now being admitted to the hospital with worsening wound patient did have significant slough tissue and would require surgical debridement and deep culture and may need diverting colostomy to prevent recurrent stool contamination of her sacral wound and wound VAC placement, 2-Patient apparently has refused diverting colostomy , the patient is status post Sharp excisional debridement sacrococcygeal ulcer to bone 11 x 11 cm along with deep culture which are currently growing gram-negative and yeast 3- patient to continue with the vancomycin along with Unasyn while waiting for the culture finalized to determine her discharge antibiotics will need to place another PICC line however the patient keep on removing her IV access option will be for possible consideration of comfort oriented care Dictation was produced using [employer] dictation software. please excuse any grammatical, word or spelling errors. Time with Patient: Less than 30
[2023-08-08 12:56] LABS: HCT 26.7 % (37.2-46.3); HGB 8.1 g/dL (12.0-15.0); MCH 28.5 pg (27.0-32.0); MCHC 30.3 g/dL (32.0-37.0); Mean Platelet Volume 9.8 FL (9.5-12.2); NRBC Per 100 WBC 0.04 X 10*3/uL (0.00-0.01); Platelet Count 292 X 10*3/uL (140-440); RBC 2.84 X 10*6/uL (4.10-5.20); RDW 21.5 % (11.5-14.5); WBC 12.95 X 10*3/uL (4.50-10.00)
--- NOTE | 2023-08-08 13:17 | P.PN ---
Subjective Progress Note Date: 08/08/23 CHIEF COMPLAINT: Sacral decubitus ulcer HISTORY OF PRESENT ILLNESS: Patient postop day #3 status post sharp excisional debridement of the sacrococcygeal ulcer to bone with wound VAC placement. Patient lying in bed comfortably. Wound VAC in place. Patient status post 1 unit of blood yesterday. Patient removed her PICC line. Wound VAC was changed yesterday. Afebrile. WBC is down from 14-12 hemoglobin did go from 6.7-8.9 yesterday. Hemoglobin 8.1 PHYSICAL EXAM: VITAL SIGNS: Reviewed GENERAL: Well-developed in no acute distress. HEENT: No sclera icterus. Extraocular movements grossly intact. Moist buccal mucosa. Head is atraumatic, normocephalic. Hears conversational speech. No nasal dr ainage. NECK: Supple without lymphadenopathy. CHEST: Non-labored respirations and equal bilateral excursions. CARDIOVASCULAR: Palpable 2+ radial pulses. ABDOMEN: Soft. Nondistended. Nontender. MUSCULOSKELETAL: No clubbing or cyanosis. NEUROLOGIC: No focal or lateralizing signs. Cranial nerves II through XII grossly intact. PSYCH: Sleeping comfortably SKIN: Large Sacral decubitus ulcer with wound vac in place ASSESSMENT: 1. Sacrococcygeal decubitus ulcer, stage IV 2. Dementia 3. Bipolar disorder 4. Deep venous thrombosis 5. Diabetes type 2, insulin-dependent 6. Iron deficiency anemia 7. History of transient ischemic attack 8. Hypertensive heart disease 9. Generalized anxiety disorder 10. Depressive disorder 11. Obesity due to excess calories, BMI 30.2 12. Anemia status post blood transfusion PLAN: -Continue wound VAC -Continue offloading -Continue antibiotics per ID service -Continue high protein diet -Continue Brandan protein supplement -Patient can be discharged from surgical standpoint when medically cleared Physician Sewer note has been reviewed by physician. Signing provider agrees with the documented findings, assessment, and plan of care. Objective - Vital Signs Vital signs: Vital Signs Temp 98.4 F 08/08/23 07:19 Pulse 92 08/08/23 07:19 Resp 18 08/08/23 07:19 BP 130/78 08/08/23 07:19 Pulse Ox 99 08/08/23 07:19 FiO2 Intake & Output 08/07/23 08/08/23 08/08/23 18:59 06:59 18:59 Intake Total 310 1240 Output Total 2000 1100 900 Balance -1690 140 -900 Intake: Intake, IV Titration 930 Amount Ampicillin-Sulbactam 3 gm 200 In Sodium Chloride 0.9% 100 ml @ 200 mls/hr IVPB Q6H [facility] Rx#:[id number] Lactated Ringers 1,000 ml 240 @ 20 mls/hr IV .Q24H [facility] Rx#:[id number] Sodium Chloride 0.9% 1, 240 000 ml @ 20 mls/hr IV . Q24H [facility] Rx#:[id number] Vancomycin 1,250 mg In 250 Sodium Chloride 0.9% 250 ml @ 125 mls/hr IVPB Q12H [facility] Rx#:[id number] Blood Product 310 310 Rc As-1 Unit 310 [id number] Output: Urine 1999 1100 900 Other: Voiding Method Indwelling Catheter Indwelling Catheter Indwelling Catheter - Labs CBC & Chem 7: 08/08/23 06:40 08/08/23 06:40 Labs: Abnormal Lab Results - Last 24 Hours (Table) 08/05/23 08/07/23 08/07/23 Range/Units 15:37 17:10 19:56 WBC (3.8-10.6) k/uL RBC (3.80-5.40) m/uL Hgb (11.4-16.0) gm/dL Hct (34.0-46.0) % MCHC (32.0-37.0) g/dL RDW (11.5-15.5) % Lymphocytes # (Manual) (1.0-4.8) k/uL Nucleated RBCs (0-0) /100 WBC NRBC/100 WBC Diff (0.00-0.01) X 10*3/uL Creatinine (0.52-1.04) mg/dL POC Glucose (mg/dL) 177 H 123 H (70-110) mg/dL Crossmatch See Detail 08/07/23 08/08/23 08/08/23 Range/Units 21:16 06:08 06:40 WBC 14.0 H 12.95 H (3.8-10.6) k/uL RBC 2.93 L 2.84 L (3.80-5.40) m/uL Hgb 8.9 L 8.1 L (11.4-16.0) gm/dL Hct 27.3 L 26.7 L (34.0-46.0) % MCHC 30.3 L (32.0-37.0) g/dL RDW 19.6 H 21.5 H (11.5-15.5) % Lymphocytes # (Manual) 5.74 H (1.0-4.8) k/uL Nucleated RBCs 1 H (0-0) /100 WBC NRBC/100 WBC Diff 0.04 H (0.00-0.01) X 10*3/uL Creatinine (0.52-1.04) mg/dL POC Glucose (mg/dL) 119 H (70-110) mg/dL Crossmatch 08/08/23 08/08/23 Range/Units 06:40 10:44 WBC (3.8-10.6) k/uL RBC (3.80-5.40) m/uL Hgb (11.4-16.0) gm/dL Hct (34.0-46.0) % MCHC (32.0-37.0) g/dL RDW (11.5-15.5) % Lymphocytes # (Manual) (1.0-4.8) k/uL Nucleated RBCs (0-0) /100 WBC NRBC/100 WBC Diff (0.00-0.01) X 10*3/uL Creatinine 0.37 L (0.52-1.04) mg/dL POC Glucose (mg/dL) 115 H (70-110) mg/dL Crossmatch Microbiology - Last 24 Hours (Table) 08/05/23 16:57 Gram Stain - Final Other - Other Wound Culture - Final Pseudomonas aeruginosa Cristina species, not albicans 08/05/23 16:57 Gram Stain - Final Other - Other Wound Culture - Final Pseudomonas aeruginosa
[2023-08-08] MEDS ORDERED: LIDOCAINE 1% INJ 10MG/ML (20 ML MDV) SQ ONE (13:37)
[2023-08-08 13:47] LABS: Basophils # (M) 0 X 10*3/uL (0.00-0.10); Eosinophils # (M) 0.13 X 10*3/uL (0.04-0.35); Lymphocytes # (M) 5.18 X 10*3/uL (0.90-5.00); Monocytes # (M) 0.39 X 10*3/uL (0.20-1.00); Neutrophils # (M) 7.25 X 10*3/uL (1.80-7.70); Neutrophils % (M) 56 %
--- NOTE | 2023-08-08 14:59 | IR ---
PICC LINE PLACEMENT: HISTORY: Infection requiring long-term antibiotic therapy PROCEDURE: Ultrasound and fluoroscopic guidance of PICC line placement. COMPLICATIONS: None ANESTHESIA: 1. 1% Lidocaine locally. FINDINGS/TECHNIQUE: The procedure was explained to the patient. The risks, complications, benefits and alternatives were discussed and any questions were answered. Informed consent was obtained. The patient was placed supine on the fluoroscopic table and prepped and draped in the usual sterile fash ion. Utilizing a 21 gauge needle and sonographic and fluoroscopic guidance, access in the left basi lic vein was achieved and there is placement of a 0.018 guidewire. The vein is patent. A 4-F sheath was placed over the guidewire. The guidewire and dilator were removed and a 4-F. PICC line was plac ed through the sheath with the tip at the level of the SVC. The sheath was removed, the catheter was flushed and sutured into position. The patient was stable throughout the procedure and remained sta ble upon discharge from the Department of Radiology. The vein puncture was patent under ultrasound. A abbott scale image was obtained to document patency of the vein punctured. All elements of the maximal barrier technique were utilized. FLUOROSCOPY TIME: DAP 0.0541Gy cm2 IMPRESSION: Successful PICC line placement under ultrasound and fluoroscopic guidance.
[2023-08-08 16:16] LABS: Glucose,Whole Blood 146 mg/dL (70-110)
[2023-08-08] MEDS: HYDROcodone/APAP 5-325MG 1 EACH TAB PO PRN (16:45)
--- NOTE | 2023-08-08 17:11 | P.PN ---
Progress Note - Text Progress Note Date: 08/08/23 Chief Complaint: Decubital ulcer This is a 77-year-old patient, at rehab at [facility]. Being followed by Dr. Mijares. Chronic stable medical conditions includes dementia, diabetes, hypertension, osteoarthritis, bipolar. Most of the history is obtained by the granddaughter the bedside. Approximately 4 weeks ago patient was sent to [facility] where patient was found to have discitis in the lumbar area. Patient got surgery for the same and rods reported the spine. Patient did come back to rehab. Further change in mental status patient is sent back to [facility] again. Patient had been septic. Is on IV Zosyn. Supposed to get a total of 6 weeks. Being followed by infectious disease. His started off with bedsores that has progressively gotten worse. Local wound care has continued. As a sacral decubiti this became larger patient sent back to the ER for further treatment. As per the granddaughter they'll prefer to have treatment done here and not cold to [place] if that can be avoided. At her baseline currently patient is able to walk about 10-15 steps with physical therapy. Patient has been getting IV antibiotics via PICC line. Consultation to ID and vascular for wound care was done. July 31: In bed. Granddaughter the bedside. Patient's son on the phone. That questions about surgery in the wound. Did direct him to infectious disease and vascular. I did get a call from patient's family doctor Dr. Mijares bedside and is requesting's another surgeon from Dr. Mullen and either Dr. Nguyen or Dr. Sierra. Spoke to Samaria the surgical [employer] PROF[employer]OR.. Dr. Nguyen's agronomy teacher been consulted for the same. Patient is on IV Unasyn and vancomycin. Eating well. Patient's colostomy is being scheduled. Patient herself does not want a coloscopy. But patient's son who is the POA wishes to proceed with the same. There is only very way the wound might heal. The wound is rather extensive August 01: Patient is seen by Dr. Nguyen from general surgery. She spoke to me. Patient being scheduled for surgery on Saturday. She spoke to the patient's son. We'll start the patient and subcu Lovenox 80 mg every 12. Last dose will be on Saturday evening been held. Other medications to continue including antibiotics per Dr. Abreu. Patient eating well. Discussed with patient granddaughter the bedside. August 06: I resumed care of the patient today. Patient's son, KAILYN as per patient wishes decided not to proceed with colostomy. Patient yesterday underwent debridement by Dr. Nguyen. Wound VAC is placed. Otherwise patient appears to be comfortable. Eating fair. Discussed with Dr. Griffith from ID. Pending deep wound cultures. I discussed length with patient's son over the phone. Prognosis guarded given patient's age immobility and that wound VAC can only stay for so long. Also discussed with patient's family doctor Dr. Mijares. Discussed the nurse. Total time spent over 1 hour with over 40 minutes of discussion August 07: Patient dropped hemoglobin to 6.7. 1 unit of blood ordered. Anemia felt to be multifactorial including anemia of chronic disease and blood draws. No overt sign of any dark stools. Family member at the bedside this morning. Patient not eating much. Late I spoke to patient's son Ar the phone at length. Updated them. Questions answered. Did talk about CODE STATUS. DO NOT RESUSCITATE will be appropriate. He'll talk to family members and get back to m e. Stool occult blood ordered. Awaiting cultures to find less. August 08: Overnight patient pulled out the PICC line. Daughter the bedside. Patient not really eating. We'll discuss with ID about possible discharge tomorrow. Updated the son about possible discharge tomorrow. Active Medications Acetaminophen (Acetaminophen Tab 500 Mg Tab) 500 mg PO Q6HR PRN PRN Reason: Fever and/ or Pain Last Admin: 08/07/23 20:09 Dose: 500 mg Hydrocodone Bitart/Acetaminophen (Hydrocodone/Apap 5-325mg 1 Each Tab) 1 each PO Q4HR PRN PRN Reason: Pain Last Admin: 08/08/23 16:45 Dose: 1 each Ascorbic Acid (Ascorbic Acid 500 Mg Tab) 250 mg PO DAILY [facility] Last Admin: 08/08/23 10:07 Dose: 250 mg Bacitracin (Bacitracin Oint 1 Each Packet) 1 each TOPICAL BID [facility]; Protocol Last Admin: 08/08/23 10:10 Dose: 1 each Benztropine Mesylate (Benztropine Mesylate 1 Mg Tab) 2 mg PO BID [facility] Last Admin: 08/07/23 20:10 Dose: 2 mg Cholecalciferol (Cholecalciferol 25 Mcg (1000 Iu) Tablet) 50 mcg PO DAILY [facility] Last Admin: 08/08/23 10:07 Dose: 50 mcg Collagenase (Collagenase 250 Unit/Gm Ointment 30 Gm Tube) 1 applic TOPICAL DAILY [facility]; Protocol Last Admin: 08/08/23 10:10 Dose: Not Given Dextrose/Water (Dextrose 50% Syringe 50 Ml) 25 ml IVP PER PROTOCOL PRN; Protocol PRN Reason: Hypoglycemia Dextrose/Water (Dextrose 50% Syringe 50 Ml) 50 ml IVP PER PROTOCOL PRN; Protocol PRN Reason: Hypoglycemia Diclofenac Sodium (Diclofenac Sodium Gel 100 Gm Tube) 2 gm TOPICAL QID [facility]; Protocol Last Admin: 08/08/23 16:40 Dose: Not Given Dronabinol (Dronabinol 2.5 Mg Cap) 2.5 mg PO BID [facility] Last Admin: 08/08/23 10:19 Dose: 2.5 mg Enoxaparin Sodium (Enoxaparin 80 Mg/0.8 Ml Syringe) 80 mg SQ Q12HR [facility] Last Admin: 08/08/23 10:09 Dose: 80 mg Famotidine (Famotidine 20 Mg Tab) 20 mg PO DAILY [facility] Last Admin: 08/08/23 10:06 Dose: 20 mg Ferrous Sulfate (Ferrous Sulfate 325 Mg Tab) 325 mg PO DAILY [facility] Last Admin: 08/08/23 10:07 Dose: 325 mg Gabapentin (Gabapentin 100 Mg Cap) 100 mg PO BID [facility] Last Admin: 08/08/23 10:06 Dose: 100 mg Haloperidol (Haloperidol 5 Mg Tab) 2.5 mg PO HS [facility] Last Admin: 08/07/23 20:10 Dose: 2.5 mg Sodium Chloride (Saline 0.9%) 1,000 mls @ 20 mls/hr IV .Q24H [facility] Last Admin: 08/07/23 23:20 Dose: Not Given Ampicillin Sodium/Sulbactam (Sodium 3 gm/ Sodium Chloride) 100 mls @ 200 mls/hr IVPB Q6H [facility]; Protocol Last Admin: 08/08/23 16:45 Dose: 200 mls/hr Lactated Ringer's (Lactated Ringers) 1,000 mls @ 20 mls/hr IV .Q24H [facility] Last Admin: 08/08/23 09:54 Dose: Not Given Vancomycin HCl 1,250 mg/ (Sodium Chloride) 250 mls @ 125 mls/hr IVPB Q12H [facility] Last Admin: 08/08/23 10:02 Dose: 125 mls/hr Insulin Aspart (Insulin Aspart (Novolog) 100 Unit/Ml Vial) 0 unit SQ ACHS [facility]; Protocol Last Admin: 08/08/23 16:39 Dose: Not Given Lactulose (Lactulose 20 Gm/30 Ml Cup) 30 gm PO BID [facility] Last Admin: 08/08/23 09:47 Dose: Not Given Linagliptin (Linagliptin 5 Mg Tablet) 5 mg PO DAILY [facility] Last Admin: 08/08/23 10:07 Dose: 5 mg Magnesium Hydroxide (Magnesium Hydroxide 2,400 Mg/30 Ml Cup) 2,400 mg PO Q72H PRN PRN Reason: Constipation Metoprolol Tartrate (Metoprolol Tartrate 25 Mg Tab) 25 mg PO TID [facility] Last Admin: 08/08/23 16:45 Dose: 25 mg Miscellaneous Information (Magnesium Replacement Protocol 1 Each Misc) 1 each MISCELLANE DAILY PRN; Protocol PRN Reason: Per Protocol Multivitamins (Multivitamins, Thera 1 Each Tab) 1 each PO DAILY [facility] Last Admin: 08/08/23 10:06 Dose: 1 each Naloxone HCl (Naloxone 0.4 Mg/Ml 1 Ml Vial) 0.2 mg IV Q2M PRN PRN Reason: Opioid Reversal Ondansetron HCl (Ondansetron 4 Mg/2 Ml Vial) 4 mg IVP Q8HR PRN PRN Reason: Nausea And Vomiting Polyethylene Glycol (Polyethylene Glycol 3350 17 Gm Powd.Pack) 17 gm PO BID [facility] Last Admin: 08/08/23 09:47 Dose: Not Given Senna/Docusate Sodium (Sennosides-Docusate Sodium 1 Each Tab) 1 each PO BID [facility] Last Admin: 08/08/23 09:47 Dose: Not Given Past medical history to include: Dementia, diabetes, hypertension, osteoarthritis,, bipolar, discitis-lumbar Social history: No smoking or alcohol history. Currently at rehab at [facility]. Patient's son Ar Ramírez is the POA. Physical examination: VITAL SIGNS: 98.6, 90, 20, 145 a 67, 97% room air GENERAL: Reclining in bed, comfortable EYES: Pupils equal. Conjunctiva normal. HEENT: External appearance of nose and ears normal, oral cavity grossly normal. NECK: JVD not raised; masses not palpable. HEART: First and second heart sounds are normal; no edema. LUNGS: Respiratory rate normal; clear to auscultation. ABDOMEN: Soft, nontender, liver spleen not palpable, no masses palpable. [place] PSYCH: [Able to answer simple questions. Patient stating I do not want colostomy DERMATOLOGICAL: Large sacral decubitus ulcer down to the bone. Pictures and nursing chart : Wound VAC MUSCULOSKELETAL:No Clubbing/cyanosis;muscles-grossly intact, OA INVESTIGATIONS, reviewed in the clinical context: Wound culture [August 05] Pseudomonas aeriginosa Candidus species August 08: White count 12.9 hemoglobin 8.1 platelets 292 August 07: White count 13.1 hemoglobin 6.7 platelets 341 August 05: White count 12.6 hemoglobin 7.5 platelets 352 potassium 3.6 creatinine 0.4 August 01: White count 11.8 hemoglobin 8 potassium 3.4 creatinine 0.47 July 30: White count 8.5 hemoglobin 8.4 platelets 477 potassium 4.1 BUN 5 creatinine 0.37 CRP 3.3 proBNP 3220 TSH 1.3 EKG tracing personally reviewed by me-normal sinus rhythm. Nonspecific ST-T wave changes. Assessment and plan: -Stage IV large sacral decubitus ulcer. Wound culture positive for Pseudomonas on this admission vascular Dr. Cobb. ID Dr. Abreu. Surgery Dr. Nguyen. IV Unasyn, IV vancomycin As per patient wishes and the son no diverting colostomy. Debridement care of by Dr. Nguyen on August 05. Wound VAC in place -Anemia felt to be multifactorial. Including anemia of chronic disease. Blood draw anemia. And possibly some loss during debridement.: Transfuse 1 unit of blood. Stool occult blood. Patient being followed by Dr. Nguyen. -Chronic medical debility. -Chronic constipation MiraLAX, senna plus, lactulose -Diabetes mellitus type 2 Januvia. Follow Accu-Cheks with sliding scale -Essential hypertension Lopressor 25 mg twice a day -Recent History of lumbar discitis. Patient had surgery for the same. received antibiotics. -Cognitive impairment -Full code -PANCHITO, Ar Ramírez. Son Advance care planning: [08/07/2023] Spoke with the son Ar the phone. Spoke over patient's overall cardiac prognosis. Decreased mobility. Large decubitus wound. Age. Discussed the appropriateness of DO NOT RESUSCITATE. Questions answered. Patient's unmanageable discussed other siblings and get back to me. Meantime patient to remain full code. Time spent for this about 25 minutes Patient getting a PICC line again placed today. Plan for patient to return to rehab tomorrow. Spoke to son on the phone.
[2023-08-08 19:14] LABS: Glucose,Whole Blood 210 mg/dL (70-110)
[2023-08-08] MEDS: BENZTROPINE MESYLATE 1 MG TAB PO SCH (20:12)
[2023-08-08] MEDS: haloperidoL 5 MG TAB PO SCH (20:13)
[2023-08-08] MEDS: SODIUM CHLORIDE 0.9% 1,000 ML IV SCH (22:24)
[2023-08-09] MEDS: AMPICILLIN-SULBACTAM 3 GM in SODIUM CHLORIDE 0.9% 100 ML IVPB SCH (04:33)
[2023-08-09 05:33] LABS: Glucose,Whole Blood 123 mg/dL (70-110)
[2023-08-09] MEDS: INSULIN ASPART (NovoLOG) 100 UNIT/ML VIAL SQ SCH ×3 (05:47→17:30)
[2023-08-09] MEDS ORDERED: ANIDULAFUNGIN 200 MG in SODIUM CHLORIDE 0.9% 200 ML IVPB ONE (08:40)
[2023-08-09] MEDS: GABAPENTIN 100 MG CAP PO SCH (09:39)
[2023-08-09] MEDS: METOPROLOL TARTRATE 25 MG TAB PO SCH ×2 (09:39→16:24)
[2023-08-09] MEDS: ASCORBIC ACID 500 MG TAB PO SCH (09:40)
[2023-08-09] MEDS: FAMOTIDINE 20 MG TAB PO SCH (09:42)
[2023-08-09] MEDS: SENNOSIDES-DOCUSATE SODIUM 1 EACH TAB PO SCH (09:42)
[2023-08-09] MEDS: LACTULOSE 20 GM/30 ML CUP PO SCH (09:42)
[2023-08-09] MEDS: LINAGLIPTIN 5 MG TABLET PO SCH (09:42)
[2023-08-09] MEDS: CHOLECALCIFEROL 25 MCG (1000 IU) TABLET PO SCH (09:42)
[2023-08-09] MEDS: FERROUS SULFATE 325 MG TAB PO SCH (09:42)
[2023-08-09] MEDS: MULTIVITAMINS, THERA 1 EACH TAB PO SCH (09:42)
[2023-08-09] MEDS: droNABinol 2.5 MG CAP PO SCH (09:42)
[2023-08-09] MEDS: polyethylene glycoL 3350 17 GM POWD.PACK PO SCH (09:43)
[2023-08-09] MEDS: DICLOFENAC SODIUM GEL 100 GM TUBE TOPICAL SCH ×3 (10:03→17:54)
[2023-08-09] MEDS: COLLAGENASE 250 UNIT/GM OINTMENT 30 GM TUBE TOPICAL SCH (10:04)
[2023-08-09] MEDS: BACITRACIN OINT 1 EACH PACKET TOPICAL SCH (10:21)
[2023-08-09] MEDS: ENOXAPARIN 80 MG/0.8 ML SYRINGE SQ SCH (10:21)
[2023-08-09] MEDS: BENZTROPINE MESYLATE 1 MG TAB PO SCH (10:21)
[2023-08-09] MEDS: PIPERACILLIN-TAZOBACTAM 3.375 GM in SODIUM CHLORIDE 0.9% 100 ML IVPB SCH ×2 (10:22→16:24)
--- NOTE | 2023-08-09 10:50 | P.PN ---
Subjective Progress Note Date: 08/09/23 CHIEF COMPLAINT: Sacral decubitus ulcer HISTORY OF PRESENT ILLNESS: Patient postop day #4 status post sharp excisional debridement of the sacrococcygeal ulcer to bone with wound VAC placement. Patient lying in bed comfortably. Wound VAC in place. Patient has new PICC line in place. She is scheduled for discharge to [facility] today. Afebrile. PHYSICAL EXAM: VITAL SIGNS: Reviewed GENERAL: Well-developed in no acute distress. HEENT: No sclera icterus. Extraocular movements grossly intact. Moist buccal mucosa. Head is atraumatic, normocephalic. Hears conversational speech. No nasal drainage. NECK: Supple without lymphadenopathy. CHEST: Non-labored respirations and equal bilateral excursions. CARDIOVASCULAR: Palpable 2+ radial pulses. ABDOMEN: Soft. Nondistended. Nontender. MUSCULOSKELETAL: No clubbing or cyanosis. NEUROLOGIC: No focal or lateralizing signs. Cranial nerves II through XII grossly intact. PSYCH: Sleeping comfortably SKIN: Large Sacral decubitus ulcer with wound vac in place ASSESSMENT: 1. Sacrococcygeal decubitus ulcer, stage IV 2. Dementia 3. Bipolar disorder 4. Deep venous thrombosis 5. Diabetes type 2, insulin-dependent 6. Iron deficiency anemia 7. History of transient ischemic attack 8. Hypertensive heart disease 9. Generalized anxiety disorder 10. Depressive disorder 11. Obesity due to excess calories, BMI 30.2 12. Anemia status post blood transfusion PLAN: -Continue wound VAC. Wound VAC to be changed Saturday -Continue offloading -Continue antibiotics per ID service -Continue high protein diet -Continue Brandan protein supplement -Patient can be discharged from surgical standpoint when medically cleared Physician Cart Attendant note has been reviewed by physician. Signing provider agrees with the documented findings, assessment, and plan of care. Objective - Vital Signs Vital signs: Vital Signs Temp 97.5 F L 08/09/23 06:55 Pulse 89 08/09/23 06:55 Resp 18 08/09/23 06:55 BP 177/76 08/09/23 06:55 Pulse Ox 100 08/09/23 06:55 FiO2 Intake & Output 08/08/23 08/09/23 08/09/23 18:59 06:59 18:59 Output Total 900 1600 Balance -900 -1600 Output: Urine 900 1600 Other: Voiding Method Indwelling Catheter Indwelling Catheter # Voids 500 - Labs CBC & Chem 7: 08/08/23 06:40 08/08/23 06:40 Labs: Abnormal Lab Results - Last 24 Hours (Table) 08/08/23 08/08/23 08/08/23 Range/Units 06:40 10:44 16:14 WBC 12.95 H (4.50-10.00) X 10*3/uL RBC 2.84 L (4.10-5.20) X 10*6/uL Hgb 8.1 L (12.0-15.0) g/dL Hct 26.7 L (37.2-46.3) % MCHC 30.3 L (32.0-37.0) g/dL RDW 21.5 H (11.5-14.5) % Lymphocytes # (Manual) 5.18 H (0.90-5.00) X 10*3/uL NRBC/100 WBC Diff 0.04 H (0.00-0.01) X 10*3/uL POC Glucose (mg/dL) 115 H 146 H (70-110) mg/dL 08/08/23 08/09/23 Range/Units 19:13 05:31 WBC (4.50-10.00) X 10*3/uL RBC (4.10-5.20) X 10*6/uL Hgb (12.0-15.0) g/dL Hct (37.2-46.3) % MCHC (32.0-37.0) g/dL RDW (11.5-14.5) % Lymphocytes # (Manual) (0.90-5.00) X 10*3/uL NRBC/100 WBC Diff (0.00-0.01) X 10*3/uL POC Glucose (mg/dL) 210 H 123 H (70-110) mg/dL Microbiology - Last 24 Hours (Table) 08/05/23 16:57 Anaerobic Culture - Preliminary Other - Other 08/05/23 16:57 Anaerobic Culture - Preliminary Other - Other 08/05/23 16:57 Gram Stain - Final Other - Other Wound Culture - Final Pseudomonas aeruginosa Cristina species, not albicans 08/05/23 16:57 Gram Stain - Final Other - Other Wound Culture - Final Pseudomonas aeruginosa
[2023-08-09] MEDS: LACTATED RINGERS 1,000 ML IV SCH (11:16)
[2023-08-09 11:19] LABS: Glucose,Whole Blood 149 mg/dL (70-110)
--- NOTE | 2023-08-09 13:22 | P.DS ---
Providers Date of admission: 07/29/23 19:58 Expected date of discharge: 08/09/23 Attending physician: Edgar Zuñiga Consults: 07/30/23 10:31 Consult Physician Routine Consulting Provider: Monika Cotto Consult Reason/Comments: decub ulcer Do you want consulting provider notified?: Yes 08/01/23 08:35 Consult Physician Routine Consulting Provider: Savana Atwood Consult Reason/Comments: possible diverting colostomy d/t sacral decubitus ulcer Do you want consulting provider notified?: Yes Primary care physician: [facility] Hospital Course: Chief Complaint: Decubital ulcer This is a 77-year-old patient, at rehab at [facility]. Being followed by Dr. Mijares. Chronic stable medical conditions includes dementia, diabetes, hypertension, osteoarthritis, bipolar. Most of the history is obtained by the granddaughter the bedside. Approximately 4 weeks ago patient was sent to [facility] where patient was found to have discitis in the lumbar area. Patient got surgery for the same and rods reported the spine. Patient did come back to rehab. Further change in mental status patient is sent back to [facility] again. Patient had been septic. Is on IV Zosyn. Supposed to get a total of 6 weeks. Being followed by infectious disease. His started off with bedsores that has progressively gotten worse. Local wound care has continued. As a sacral decubiti this became larger patient sent back to the ER for further treatment. As per the granddaughter they'll prefer to have treatment done here and not cold to [place] if that can be avoided. At her baseline currently patient is able to walk about 10-15 steps with physical therapy. Patient has been getting IV antibiotics via PICC line. Consultation to ID and vascular for wound care was done. July 31: In bed. Granddaughter the bedside. Patient's son on the phone. That questions about surgery in the wound. Did direct him to infectious disease and vascular. I did get a call from patient's family doctor Dr. Mijares bedside and is requesting's another surgeon from Dr. Mullen and either Dr. Nguyen or Dr. Sierra. Spoke to Samaria the surgical MERIT SYSTEM DIRECTOR.. Dr. Nguyen's hotel front desk agent been consulted for the same. Patient is on IV Unasyn and vancomycin. Eating well. Patient's colostomy is being scheduled. Patient herself does not want a colos copy. But patient's son who is the POA wishes to proceed with the same. There is only very way the wound might heal. The wound is rather extensive August 01: Patient is seen by Dr. Nguyen from general surgery. She spoke to me. Patient being scheduled for surgery on Saturday. She spoke to the patient's son. We'll start the patient and subcu Lovenox 80 mg every 12. Last dose will be on Saturday evening been held. Other medications to continue including antibiotics per Dr. Abreu. Patient eating well. Discussed with patient granddaughter the bedside. August 06: I resumed care of the patient today. Patient's son, KAILYN as per patient wishes decided not to proceed with colostomy. Patient yesterday underwent debridement by Dr. Nguyen. Wound VAC is placed. Otherwise patient appears to be comfortable. Eating fair. Discussed with Dr. Griffith from ID. Pending deep wound cultures. I discussed length with patient's son over the phone. Prognosis guarded given patient's age immobility and that wound VAC can only stay for so long. Also discussed with patient's family doctor Dr. Mijares. Discussed the nurse. Total time spent over 1 hour with over 40 minutes of discussion August 07: Patient dropped hemoglobin to 6.7. 1 unit of blood ordered. Anemia felt to be multifactorial including anemia of chronic disease and blood draws. No overt sign of any dark stools. Family member at the bedside this morning. Patient not eating much. Late I spoke to patient's son Ar the phone at length. Updated them. Questions answered. Did talk about CODE STATUS. DO NOT RESUSCITATE will be appropriate. He'll talk to family members and get back to me. Stool occult blood ordered. Awaiting cultures to find less. August 08: Overnight patient pulled out the PICC line. Daughter the bedside. Patient not really eating. We'll discuss with ID about possible discharge tomorrow. Updated the son about possible discharge tomorrow. August 09: Had a good BM today. Eating intermittently. Pain very well controlled. Antibiotics per ID. Wound care per Dr. Nguyen, ID. Patient follow-up at the wound care center at [facility] per Dr. Mccormick. Discussion and discharge planning more than 35 minutes Past medical history to include: Dementia, diabetes, hypertension, osteoarthritis,, bipolar, discitis-lumbar Social history: No smoking or alcohol history. Currently at rehab at [facility]. Patient's son Ar Ramírez is the POA. Physical examination: VITAL SIGNS: 37.5, 99, 18, 145/79, 100% room air GENERAL: Reclining in bed, comfortable EYES: Pupils equal. Conjunctiva normal. HEENT: External appearance of nose and ears normal, oral cavity grossly normal. NECK: JVD not raised; masses not palpable. HEART: First and second heart sounds are normal; no edema. LUNGS: Respiratory rate normal; clear to auscultation. ABDOMEN: Soft, nontender, liver spleen not palpable, no masses palpable. [place] PSYCH: [Able to answer simple questions. Patient stating I do not want colostomy DERMATOLOGICAL: Large sacral decubitus ulcer down to the bone. Pictures and nursing chart : Wound VAC MUSCULOSKELETAL:No Clubbing/cyanosis;muscles-grossly intact, OA INVESTIGATIONS, reviewed in the clinical context: Wound culture [August 05] Pseudomonas aeriginosa Candidus species August 08: White count 12.9 hemoglobin 8.1 platelets 292 August 07: White count 13.1 hemoglobin 6.7 platelets 341 August 05: White count 12.6 hemoglobin 7.5 platelets 352 potassium 3.6 creatinine 0.4 August 01: White count 11.8 hemoglobin 8 potassium 3.4 creatinine 0.47 July 30: White count 8.5 hemoglobin 8.4 platelets 477 potassium 4.1 BUN 5 creatinine 0.37 CRP 3.3 proBNP 3220 TSH 1.3 EKG tracing personally reviewed by me-normal sinus rhythm. Nonspecific ST-T wave changes. Assessment and plan: -Stage IV large sacral decubitus ulcer. Wound culture positive for Pseudomonas on this admission vascular Dr. Cobb. ID Dr. Abreu. Surgery Dr. Nguyen. IV Unasyn, IV vancomycin-received in the hospital Discharged on: eraxis-100 mg daily-40 dose Zosyn 3.375 g IV piggyback every 8-120 dose As per patient wishes and the son no diverting colostomy. Debridement care of by Dr. Nguyen on August 05. Wound VAC in place -Anemia felt to be multifactorial. Including anemia of chronic disease. Blood draw anemia. And possibly some loss during debridement.: Received 1 unit of blood. Stool occult blood. Patient being followed by Dr. Nguyen. -Chronic medical debility. -Chronic constipation MiraLAX, senna plus, lactulose -Diabetes mellitus type 2 Januvia. Follow Accu-Cheks with sliding scale -Essential hypertension Lopressor 25 mg twice a day -Recent History of lumbar discitis. Patient had surgery for the same. received antibiotics. -Cognitive impairment -Full code -Ar FLANAGAN. Son Advance care planning: [08/07/2023] Spoke with the son Ar the phone. Spoke over patient's overall cardiac prognosis. Decreased mobility. Large decubitus wound. Age. Discussed the appropriateness of DO NOT RESUSCITATE. Questions answered. Patient's unmanageable discussed other siblings and get back to me. Meantime patient to remain full code. Time spent for this about 25 minutes Disposition: Rehab at [facility] Wound Vac Orders Medium black Granufoam with Bridge dressing Continuous suction Change wound vac dressing Saturday, Saturday and Saturday Follow-up at wound care center with Dr.S Mccormick at [facility] Patient Condition at Discharge: Fair Plan - Discharge Summary Discharge Rx Participant: No New Discharge Prescriptions: New Anidulafungin [Eraxis] 100 mg IVPB DAILY #40 each Diclofenac Sodium Gel [Voltaren 1% Gel] 2 gm TOPICAL QID gm Piperacillin-Tazobactam [Zosyn] 3.375 gm IVPB Q8HR #120 each Collagenase [Santyl Ointment] 1 applic TOPICAL DAILY each Acetaminophen Tab [Tylenol] 500 mg PO Q6HR PRN tab PRN Reason: Fever And/ Or Pain Continue Insulin Lispro [humaLOG Kwikpen] See Protocol SQ ACHS 0.9 % Sodium Chloride [Sodium Chloride Flush] 10 ml IV Q6H Apixaban [Eliquis] 5 mg PO BID Multivitamins, Thera [Multivitamin (formulary)] 1 tab PO DAILY Famotidine [Pepcid] 20 mg PO DAILY Lactulose 20 gm PO DAILY Cholecalciferol [Vitamin D3 (25 Mcg = 1000 Iu)] 50 mcg PO DAILY Ascorbic Acid [Vitamin C] 250 mg PO DAILY haloperidoL [Haldol] 2.5 mg PO HS #3 tab Gabapentin [Neurontin] 100 mg PO BID #6 cap HYDROcodone/APAP 5-325MG [[place] 5-325] 1 tab PO Q4HR PRN #18 tab PRN Reason: Pain Magnesium Hydroxide [Milk of Magnesia] 2,400 mg PO Q72H PRN PRN Reason: Constipation Benztropine Mesylate [Cogentin] 2 mg PO BID sitaGLIPtin [Januvia] 50 mg PO DAILY Ferrous Sulfate [Iron] 325 mg PO DAILY Sennosides/Docusate Sodium [Senna Plus 8.6-50 mg Tablet] 1 tab PO BID polyethylene glycoL 3350 [Miralax] 17 gm PO BID droNABinol [Marinol] 2.5 mg PO BID #6 cap Changed Metoprolol Tartrate [Lopressor] 25 mg PO TID #0 Discontinued Ampicillin-Sulbactam [Unasyn 3 gm vial] 3 gm IVPB Q6HR Discharge Medication List 0.9 % Sodium Chloride [Sodium Chloride Flush] 10 ml IV Q6H 07/29/23 [History] Apixaban [Eliquis] 5 mg PO BID 07/29/23 [History] Ascorbic Acid [Vitamin C] 250 mg PO DAILY 07/29/23 [History] Benztropine Mesylate [Cogentin] 2 mg PO BID 07/29/23 [History] Cholecalciferol [Vitamin D3 (25 Mcg = 1000 Iu)] 50 mcg PO DAILY 07/29/23 [History] Famotidine [Pepcid] 20 mg PO DAILY 07/29/23 [History] Ferrous Sulfate [Iron] 325 mg PO DAILY 07/29/23 [History] Insulin Lispro [humaLOG Kwikpen] See Protocol SQ ACHS 07/29/23 [History] Lactulose 20 gm PO DAILY 07/29/23 [History] Magnesium Hydroxide [Milk of Magnesia] 2,400 mg PO Q72H PRN 07/29/23 [History] Multivitamins, Thera [Multivitamin (formulary)] 1 tab PO DAILY 07/29/23 [History] Sennosides/Docusate Sodium [Senna Plus 8.6-50 mg Tablet] 1 tab PO BID 07/29/23 [History] polyethylene glycoL 3350 [Miralax] 17 gm PO BID 07/29/23 [History] sitaGLIPtin [Januvia] 50 mg PO DAILY 07/29/23 [History] Acetaminophen Tab [Tylenol] 500 mg PO Q6HR PRN tab 08/09/23 [Rx] Anidulafungin [Eraxis] 100 mg IVPB DAILY #40 each 08/09/23 [Rx] Collagenase [Santyl Ointment] 1 applic TOPICAL DAILY each 08/09/23 [Rx] Diclofenac Sodium Gel [Voltaren 1% Gel] 2 gm TOPICAL QID gm 08/09/23 [Rx] Gabapentin [Neurontin] 100 mg PO BID #6 cap 08/09/23 [Rx] HYDROcodone/APAP 5-325MG [[place] 5-325] 1 tab PO Q4HR PRN #18 tab 08/09/23 [Rx] Metoprolol Tartrate [Lopressor] 25 mg PO TID #0 08/09/23 [Rx] Piperacillin-Tazobactam [Zosyn] 3.375 gm IVPB Q8HR #120 each 08/09/23 [Rx] droNABinol [Marinol] 2.5 mg PO BID #6 cap 08/09/23 [Rx] haloperidoL [Haldol] 2.5 mg PO HS #3 tab 08/09/23 [Rx] Follow up Appointment(s)/Referral(s): Maykel Mijares DO [Primary Care Provider] - 1-2 days ([facility] please call for follow-up appointment.) Monika Cotto MD [STAFF PHYSICIAN] - 2 Weeks (Office is not answering. Please call for follow-up appointment.) Ambulatory/Diagnostic Orders: Basic Metabolic Panel [LAB.AMB] Location: None Selected C Reactive Protein [LAB.AMB] Location: None Selected Complete Blood Count w/diff [LAB.AMB] Location: None Selected Erythrocyte Sedimentation Rate [LAB.AMB] Location: None Selected Activity/Diet/Wound Care/Special Instructions: Wound Vac Orders Medium black Granufoam with Bridge dressing Continuous suction Change wound vac dressing Saturday, Saturday and Saturday f/u at wound care center - with dr mccormick
[2023-08-09 14:51] VITALS: BP 164/74; PULSE 97; RESP 20; TEMP 98.3
[2023-08-09] MEDS: HYDROcodone/APAP 5-325MG 1 EACH TAB PO PRN (14:52)
--- NOTE | 2023-08-09 15:47 | P.PN ---
Subjective Progress Note Date: 08/09/23 Principal diagnosis: Infected sacral pressure ulcer Patient is a 77-year-old -[place] female with a past medical history significant for hypertension diabetes mellitus dementia CVA TIA patient recently did have 2 stay at [facility] initial 1 was for possible discitis and this patient apparently did have a E. coli infection and was advised a 6-week course of IV Rocephin subsequently readmitted to the [facility] with worsening wound to the sacral area s/p debridement culture positive for Enterococcus faecalis antibiotic was switched over to Unasyn 3 g every 6 hours, patient has not been brought to [facility] ER with worsening sacral wound. Patient is status post Sharp excisional debridement sacrococcygeal ulcer to bone 11 x 11 cm completed on 08/05/2023 along with a deep cultures On today's evaluation that is 08/09/2023, the patient remains to be afebrile, the patient is breathing comfortably on room air , the patient denies any chest pain or any cough , patient denies nausea/vomiting diarrhea and no abdominal pain Patient did have white count is down to 12.95, creatinine 0.37 as of yesterday no labs today, deep OR culture currently growing pseudomonas aeruginosa and non-albicans Cristina Objective - Vital Signs Vital signs: Vital Signs Temp 97.5 F L 08/09/23 00:44 Pulse 91 08/09/23 00:44 Resp 18 08/09/23 00:44 BP 145/79 08/09/23 00:44 Pulse Ox 96 08/09/23 00:44 FiO2 Intake & Output 08/08/23 08/09/23 08/09/23 18:59 06:59 18:59 Output Total 900 1600 Balance -900 -1600 Output: Urine 900 1600 Other: Voiding Method Indwelling Catheter Indwelling Catheter # Voids 500 - Exam GENERAL DESCRIPTION: An elderly female lying in bed in no distress RESPIRATORY SYSTEM: Unlabored breathing , clear to auscultation anteriorly HEART: S1 S2 regular rate and rhythm , ABDOMEN: Soft , no tenderness EXTREMITIES: No edema feet Patient did have a stage IV sacral pressure ulcer with some slough tissue - Labs CBC & Chem 7: 08/08/23 06:40 08/08/23 06:40 Labs: Abnormal Lab Results - Last 24 Hours (Table) 08/08/23 08/08/23 08/08/23 Range/Units 06:40 10:44 16:14 WBC 12.95 H (4.50-10.00) X 10*3/uL RBC 2.84 L (4.10-5.20) X 10*6/uL Hgb 8.1 L (12.0-15.0) g/dL Hct 26.7 L (37.2-46.3) % MCHC 30.3 L (32.0-37.0) g/dL RDW 21.5 H (11.5-14.5) % Lymphocytes # (Manual) 5.18 H (0.90-5.00) X 10*3/uL NRBC/100 WBC Diff 0.04 H (0.00-0.01) X 10*3/uL POC Glucose (mg/dL) 115 H 146 H (70-110) mg/dL 08/08/23 08/09/23 Range/Units 19:13 05:31 WBC (4.50-10.00) X 10*3/uL RBC (4.10-5.20) X 10*6/uL Hgb (12.0-15.0) g/dL Hct (37.2-46.3) % MCHC (32.0-37.0) g/dL RDW (11.5-14.5) % Lymphocytes # (Manual) (0.90-5.00) X 10*3/uL NRBC/100 WBC Diff (0.00-0.01) X 10*3/uL POC Glucose (mg/dL) 210 H 123 H (70-110) mg/dL Microbiology - Last 24 Hours (Table) 08/05/23 16:57 Anaerobic Culture - Preliminary Other - Other 08/05/23 16:57 Anaerobic Culture - Preliminary Other - Other 08/05/23 16:57 Gram Stain - Final Other - Other Wound Culture - Final Pseudomonas aeruginosa Cristina species, not albicans 08/05/23 16:57 Gram Stain - Final Other - Other Wound Culture - Final Pseudomonas aeruginosa Assessment and Plan (1) Infected pressure ulcer Current Visit: Yes Status: Acute Code(s): L89.90 - PRESSURE ULCER OF UNSPECIFIED SITE, UNSPECIFIED STAGE; L08.9 - LOCAL INFECTION OF THE SKIN AND SUBCUTANEOUS TISSUE, UNSP SNOMED Code(s): 032274090 (2) Sacral decubitus ulcer Current Visit: Yes Status: Acute Code(s): L89.159 - PRESSURE ULCER OF SACRAL REGION, UNSPECIFIED STAGE SNOMED Code(s): 056884963 Plan: 1patient being brought into the hospital with a worsening wound to the sacral area which apparently was recently acquired during one of her hospital stay with a recent admission at [facility] initial notes for discitis subsequently for worsening wound infection that was debrided and culture positive for Enterococcus faecalis patient was getting Unasyn now being admitted to the hospital with worsening wound patient did have significant slough tissue and would require surgical debridement and deep culture and may need diverting colostomy to prevent recurrent stool contamination of her sacral wound and wound VAC placement, 2-Patient apparently has refused diverting colostomy , the patient is status post Sharp excisional debridement sacrococcygeal ulcer to bone 11 x 11 cm along with deep culture which are currently growing Pseudomonas aeruginosa and non- albicans Cristina 3- we will discontinue Unasyn and vancomycin 4-patient started on Zosyn and Eraxis with a plan for 6 week course of therapy and close outpatient follow-up Dictation was produced using [employer] software. please excuse any grammatical, word or spelling errors. Time with Patient: Less than 30
[2023-08-09 17:05] LABS: Glucose,Whole Blood 238 mg/dL (70-110)
[2023-08-10] MEDS ORDERED: ANIDULAFUNGIN 100 MG in SODIUM CHLORIDE 0.9% 100 ML IVPB SCH (09:00)
[2023-08-11] MEDS ORDERED: VANCOMYCIN TROUGH DUE 1 EACH MISC MISCELLANE ONE (09:00)
== END 2023-08-09 18:29 | DRG 853 ==
LOC: EC 15:03 → 4SSUR 19:58
PROVIDERS: ADMIT Hospitalist; ATTEND Hospitalist
PROC: 0QB10ZZ Excision of Sacrum, Open Approach (ICD-10-PCS; principal; 2023-08-05 07:30)
PROC: 0QBS0ZZ Excision of Coccyx, Open Approach (ICD-10-PCS; principal; 2023-08-05 07:30)
PROC: 0QD10ZZ Extraction of Sacrum, Open Approach (ICD-10-PCS; principal; 2023-08-05 07:30)
PROC: 0QDS0ZZ Extraction of Coccyx, Open Approach (ICD-10-PCS; principal; 2023-08-05 07:30)
PROC: 0W9L00Z Drainage of Lower Back with Drainage Device, Open Approach (ICD-10-PCS; principal; 2023-08-05 07:30)
PROC: 30233N1 Transfusion of Nonautologous Red Blood Cells into Peripheral Vein, Percutaneous Approach (ICD-10-PCS; 2023-08-07)
PROC: 02HV33Z Insertion of Infusion Device into Superior Vena Cava, Percutaneous Approach (ICD-10-PCS; 2023-08-08)
DX: A41.52 Sepsis due to Pseudomonas (principal); L89.154 Pressure ulcer of sacral region, stage 4; F03.93 Unspecified dementia, unspecified severity, with mood disturbance; F03.94 Unspecified dementia, unspecified severity, with anxiety; D50.9 Iron deficiency anemia, unspecified; D63.8 Anemia in other chronic diseases classified elsewhere; E66.09 Other obesity due to excess calories; Z68.30 Body mass index [BMI] 30.0-30.9, adult; E11.9 Type 2 diabetes mellitus without complications; F31.9 Bipolar disorder, unspecified; F41.1 Generalized anxiety disorder; G83.9 Paralytic syndrome, unspecified; I08.1 Rheumatic disorders of both mitral and tricuspid valves; R00.0 Tachycardia, unspecified; I11.9 Hypertensive heart disease without heart failure; I69.328 Other speech and language deficits following cerebral infarction; I48.91 Unspecified atrial fibrillation; K59.09 Other constipation; M19.90 Unspecified osteoarthritis, unspecified site; Z79.01 Long term (current) use of anticoagulants; Z79.2 Long term (current) use of antibiotics; Z79.4 Long term (current) use of insulin; Z28.310 Unvaccinated for COVID-19; Z79.84 Long term (current) use of oral hypoglycemic drugs; Z79.899 Other long term (current) drug therapy; Z86.718 Personal history of other venous thrombosis and embolism; Z28.21 Immunization not carried out because of patient refusal; Z88.0 Allergy status to penicillin
CPT/HCPCS: 36415; 36573; 71045; 80048; 80053; 80202; 81003; 82565; 83036; 83690; 83735; 83880; 84100; 84443; 84484; 85025; 85610; 85730; 86140; 86850; 86900; 86901; 86920; 87040; 87070; 87075; 87077; 87186; 87205; 88307; 93005; 96365; 96366; 96367; 99285

== ENCOUNTER 2023-08-15 07:35 | Emergency (ER) | payer MEDICARE ==
--- NOTE | 2023-08-15 07:43 | ED ---
Fall HPI - General Chief Complaint: Fall Stated Complaint: fall Time Seen by Provider: 08/15/23 07:36 Source: patient, EMS, RN notes reviewed Mode of arrival: EMS - History of Present Illness Initial Comments: This is a 77-year-old female who presents to the emergency department for a fall. Patient was sent from [facility] and was found on the ground next to her bed at around 5:55 this morning. She was checked on before that at 5:15 am and found to be sleeping comfortably. She is on Eliquis 2.5 mg BID but denies hitting her head or sustaining any injuries. Also denies any loss of consciousness. Her bed is about 8 inches tall per EMS. Patient currently has no complaints. MD Complaint: fall - Related Data Home Medications Medication Instructions Recorded Confirmed 0.9 % Sodium Chloride [Sodium 10 ml IV Q6H 07/29/23 08/15/23 Chloride Flush] Apixaban [Eliquis] 5 mg PO BID 07/29/23 08/15/23 Ascorbic Acid [Vitamin C] 250 mg PO DAILY 07/29/23 08/15/23 Benztropine Mesylate [Cogentin] 2 mg PO HS 07/29/23 08/15/23 Cholecalciferol [Vitamin D3 (25 25 mcg PO DAILY 07/29/23 08/15/23 Mcg = 1000 Iu)] Famotidine [Pepcid] 20 mg PO DAILY 07/29/23 08/15/23 Ferrous Sulfate [Iron] 325 mg PO DAILY 07/29/23 08/15/23 Insulin Lispro [humaLOG Kwikpen] See Protocol SQ AC-TID 07/29/23 08/15/23 Lactulose 20 gm PO DAILY 07/29/23 08/15/23 Magnesium Hydroxide [Milk of 2,400 mg PO Q72H PRN 07/29/23 08/15/23 Magnesia] Multivitamins, Thera [Multivitamin 1 tab PO DAILY 07/29/23 08/15/23 (formulary)] Sennosides/Docusate Sodium [Senna 1 tab PO BID 07/29/23 08/15/23 Plus 8.6-50 mg Tablet] polyethylene glycoL 3350 [Miralax] 17 gm PO BID 07/29/23 08/15/23 sitaGLIPtin [Januvia] 50 mg PO DAILY 07/29/23 08/15/23 Diclofenac Sodium Gel [Voltaren 1% 2 gm TOPICAL Q6H 08/15/23 08/15/23 Gel] Brandan Packet 1 packet PO AC-BID 08/15/23 08/15/23 Previous Rx's Medication Instructions Recorded Acetaminophen Tab [Tylenol] 500 mg PO Q6HR PRN tab 08/09/23 Anidulafungin [Eraxis] 100 mg IVPB DAILY #40 each 08/09/23 Gabapentin [Neurontin] 100 mg PO BID #6 cap 08/09/23 HYDROcodone/APAP 5-325MG [[place] 1 tab PO Q4HR PRN #18 tab 08/09/23 5-325] Metoprolol Tartrate [Lopressor] 25 mg PO TID #0 08/09/23 Piperacillin-Tazobactam [Zosyn] 3.375 gm IVPB Q8HR #120 each 08/09/23 droNABinol [Marinol] 2.5 mg PO BID #6 cap 08/09/23 haloperidoL [Haldol] 2.5 mg PO HS #3 tab 08/09/23 Allergies Allergy/AdvReac Type Severity Reaction Status Date / Time metformin Allergy Unknown Verified 08/15/23 08:58 Sulfa (Sulfonamide Allergy Unknown Verified 08/15/23 08:58 Antibiotics) Review of Systems ROS Statement: Those systems with pertinent positive or pertinent negative responses have been documented in the HPI. ROS Other: All systems not noted in ROS Statement are negative. Past Medical History Past Medical History: CVA/TIA, Dementia, Diabetes Mellitus, Hypertension, Osteoarthritis (OA) Additional Past Medical History / Comment(s): Pt states she is on an antibiotic for ear infection/throat infection at this time, TIA which affected speech, pt denies HTN but it is documented in past medical hx, diet controlled diabetes History of Any Multi-Drug Resistant Organisms: None Reported Past Surgical History: Orthopedic Surgery Additional Past Surgical History / Comment(s): I&D tooth abscess, left trigger finger surgery Past Anesthesia/Blood Transfusion Reactions: No Reported Reaction Past Psychological History: Anxiety, Bipolar, Depression Smoking Status: Never smoker Past Alcohol Use History: None Reported Past Drug Use History: None Reported - Past Family History Father Family Medical History: No Reported History Mother Family Medical History: No Reported History General Exam Limitations: no limitations General appearance: alert, in no apparent distress Head exam: Present: atraumatic, normocephalic, normal inspection Eye exam: Present: normal appearance, PERRL, EOMI. Absent: scleral icterus, conjunctival injection, periorbital swelling Respiratory exam: Present: normal lung sounds bilaterally. Absent: respiratory distress, wheezes, rales, rhonchi, stridor Cardiovascular Exam: Present: regular rate, normal rhythm, normal heart sounds. Absent: systolic murmur, diastolic murmur, rubs, gallop, clicks Neurological exam: Present: alert, oriented X3, CN II-XII intact Psychiatric exam: Present: normal affect, normal mood Skin exam: Present: warm, dry, intact, normal color. Absent: rash Course Vital Signs 08/15/23 08/15/23 08/15/23 07:44 08:00 09:00 Temperature 97.8 F Pulse Rate 86 81 80 Respiratory 18 18 18 Rate Blood Pressure 159/81 140/92 141/73 O2 Sat by Pulse 96 97 98 Oximetry 08/15/23 10:00 Temperature 98.0 F Pulse Rate 95 Respiratory 18 Rate Blood Pressure 141/71 O2 Sat by Pulse 97 Oximetry Medical Decision Making - Medical Decision Making This is a 77-year-old female who presents to the emergency department for a fall. Was pt. sent in by a medical professional or institution? @ -No Did you speak to anyone other than the patient for history? @ -EMS provided the majority of the information. Did you review nursing and triage notes? @ -Yes, and I agree, it is accurate with regards to the patient's symptoms. Were old charts reviewed? @ -No Differential Diagnosis? @ -Differential Fall: Head injury, abdominal trauma, musculoskeletal injury, this is not meant to be an all-inclusive list. EKG interpreted by me (3pts min.)? @ -Not obtained X-rays interpreted by me (1pt min.)? @ -Not obtained CT interpreted by me (1pt min.)? @ -Computed tomography scan of the brain and c-spine obtained. My interpretation identifies no evidence of an acute intracranial hemorrhage, skull fracture, or cervical spine fracture. U/S interpreted by me (1pt. min.)? @ -Not obtained What testing was considered but not performed? (CT, X-rays, U/S, labs)? Why? @ -None What meds were considered but not given? Why? @ -None Did you discuss the management of the patient with other professionals? @ -No Did you reconcile home meds? @ -No Was smoking cessation discussed for >3mins.? @ -No Was critical care preformed (if so, how long)? @ -No Were there social determinants of health that impacted care today? How? (Homelessness, low income, unemployed, alcoholism, drug addiction, transportation, low edu. Level, literacy, decrease access to med. care, snf, rehab)? @ -No Was there de-escalation of care discussed even if they declined? (Discuss DNR or withdrawal of care, Hospice)? @ -No What co-morbidities impacted this encounter? (DM, HTN, Smoking, COPD, CAD, Cancer, CVA, Hep., AIDS, mental health diagnosis, sleep apnea, morbid obesity)? @ -Dementia, Hx of CVA Was patient admitted / discharged? @ -Discharged. Physical examination is entirely unremarkable and the patient had no complaints. Nursing staff spoke with [facility], who requested a computed tomography scan of the brain because they could not be entirely certain that the patient did not hit her head even though she is denying this, and because she is on blood thinners. CT scan of the brain was obtained revealing no acute process. Patient transferred back to [facility] in stable condition. Undiagnosed new problem with uncertain prognosis? @ -None Drug Therapy requiring intensive monitoring for toxicity (Heparin, Nitro, Insulin, Cardizem)? @ -None Were any procedures done? @ -None Diagnosis/symptom? @ -Fall Acute, or Chronic, or Acute on Chronic? @ -Acute Uncomplicated (without systemic symptoms) or Complicated (systemic symptoms)? @ -Uncomplicated Side effects of treatment? @ -None Exacerbation, Progression, or Severe Exacerbation] @ -Not applicable Poses a threat to life or bodily function? @ -No Return precautions reviewed in depth, the patient is instructed to return to the emergency department with any new, worsening, or concerning symptoms. Patient verbalized understanding. This case was discussed in detail with the attending ED physician, Dr. Bear. Presentation, findings, and treatment plan discussed in detail as well. - Radiology Data Radiology results: report reviewed, image reviewed Disposition Clinical Impression: Fall Disposition: HOME SELF-CARE Instructions (If sedation given, give patient instructions): Fall Prevention for Older Adults (ED) Additional Instructions: Return to the emergency department with any new, worsening, or concerning symptoms. Follow up with your primary care provider in 1-2 days. Is patient prescribed a controlled substance at d/c from ED?: No Referrals: Maykel Mijares DO [Primary Care Provider] - 1-2 days
[2023-08-15 08:18] VITALS: RESP 18
--- NOTE | 2023-08-15 09:02 | CT ---
EXAMINATION TYPE: CT brain iftikhar wo con DATE OF EXAM: 08/15/2023 COMPARISON: 11/06/2022 and 07/08/2023 HISTORY: Fall. Denies striking head CT DLP: 1434.[address] of the brain was performed. The ventricles, basal cisterns and sulci overlying the cerebral convexities demonstrate mild enlargem ent. There is no evidence for intracranial hemorrhage or sulcal effacement. There is decreased attenuatio n about the periventricular white matter and deep white matter of both cerebral hemispheres, compatib le with chronic small vessel ischemia. No mass effects are seen. If symptoms persist consider MRI. Osseous calvarium is intact. IMPRESSION: 1. Age related atrophic and chronic small vessel ischemic change without acute intracranial process seen at this time. CT Cervical Spine: Unenhanced CT of the cervical spine was performed with bone and soft tissue window settings submitted . Coronal and sagittal reconstruction is obtained. There is normal alignment and prevertebral soft tissues. No evidence for acute cervical fracture . Scattered degenerative disc disease and spondylosis. 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 Biapical scarring. IMPRESSION: 1. No evidence for acute fracture or subluxation of the cervical spine.
[2023-08-15 10:27] VITALS: BP 141/71; PULSE 95; TEMP 98
== END 2023-08-15 10:20 | disposition home or self-care (01) ==
LOC: EC 07:35
DX: Z04.3 Encounter for examination and observation following other accident (principal); E11.9 Type 2 diabetes mellitus without complications; I10 Essential (primary) hypertension; Z79.4 Long term (current) use of insulin; Z79.84 Long term (current) use of oral hypoglycemic drugs; Z88.2 Allergy status to sulfonamides; Z88.8 Allergy status to other drugs, medicaments and biological substances
CPT/HCPCS: 70450; 72125; 99284

== ENCOUNTER 2023-08-21 16:51 | Emergency (ER) | payer MEDICARE ==
[2023-08-21 17:02] VITALS: RESP 20; TEMP 98
--- NOTE | 2023-08-21 18:03 | XR ---
EXAMINATION TYPE: XR chest 1V portable DATE OF EXAM: 08/21/2023 Comparison: 08/03/2023 Clinical History: 77-year-old female with pain after fall Findings: Low lung volumes with crowded vascular markings. Heart borderline in size. No consolidation or pleura l effusion. Left PICC tip likely curled just into the azygos vein. Impression: Hypoventilatory changes. No acute process seen.
--- NOTE | 2023-08-21 18:05 | XR ---
EXAMINATION TYPE: XR pelvis AP view DATE OF EXAM: 08/21/2023 Comparison: None Clinical History: 77-year-old female with pain after fall Findings: Osteopenia. Moderate degenerative change right hip and mild at the left hip. Calcified uterine fibroi ds measuring 4.6 and 2.3 cm. Partially visualized posterior lumbar fusion hardware. Vascular calcific ations in the pelvis. Exam limited by the degree of osteopenia. No displaced fracture is seen. Impression: Limitation due to the degree of osteopenia. No displaced fracture seen. Moderate right and mild left hip OA. Calcified uterine fibroids.
--- NOTE | 2023-08-21 18:31 | ED ---
General Adult HPI - General Chief complaint: Fall Stated complaint: Fall Time Seen by Provider: 08/21/23 17:21 Source: patient, RN notes reviewed, old records reviewed Mode of arrival: ambulatory Limitations: no limitations - History of Present Illness Initial comments: 77-year-old female [facility] of [facility]. Patient states she was in her wheelchair and had fallen without injury. This was unwitnessed by staff. She was sent in for evaluation. She had no complaint. No head injury. No neck pain. No chest or abdominal pain. No upper extremity pain. No lower extremity pain. She is currently undergoing rehabilitation does have a chronic nonhealing wound to the left buttock which is currently being treated with wound care and wound VAC. - Related Data Home Medications Medication Instructions Recorded Confirmed 0.9 % Sodium Chloride [Sodium 10 ml IV Q6H 07/29/23 08/15/23 Chloride Flush] Apixaban [Eliquis] 5 mg PO BID 07/29/23 08/15/23 Ascorbic Acid [Vitamin C] 250 mg PO DAILY 07/29/23 08/15/23 Benztropine Mesylate [Cogentin] 2 mg PO HS 07/29/23 08/15/23 Cholecalciferol [Vitamin D3 (25 25 mcg PO DAILY 07/29/23 08/15/23 Mcg = 1000 Iu)] Famotidine [Pepcid] 20 mg PO DAILY 07/29/23 08/15/23 Ferrous Sulfate [Iron] 325 mg PO DAILY 07/29/23 08/15/23 Insulin Lispro [humaLOG Kwikpen] See Protocol SQ AC-TID 07/29/23 08/15/23 Lactulose 20 gm PO DAILY 07/29/23 08/15/23 Magnesium Hydroxide [Milk of 2,400 mg PO Q72H PRN 07/29/23 08/15/23 Magnesia] Multivitamins, Thera [Multivitamin 1 tab PO DAILY 07/29/23 08/15/23 (formulary)] Sennosides/Docusate Sodium [Senna 1 tab PO BID 07/29/23 08/15/23 Plus 8.6-50 mg Tablet] polyethylene glycoL 3350 [Miralax] 17 gm PO BID 07/29/23 08/15/23 sitaGLIPtin [Januvia] 50 mg PO DAILY 07/29/23 08/15/23 Diclofenac Sodium Gel [Voltaren 1% 2 gm TOPICAL Q6H 08/15/23 08/15/23 Gel] Brandan Packet 1 packet PO AC-BID 08/15/23 08/15/23 Previous Rx's Medication Instructions Recorded Acetaminophen Tab [Tylenol] 500 mg PO Q6HR PRN tab 08/09/23 Anidulafungin [Eraxis] 100 mg IVPB DAILY #40 each 08/09/23 Gabapentin [Neurontin] 100 mg PO BID #6 cap 08/09/23 HYDROcodone/APAP 5-325MG [[place] 1 tab PO Q4HR PRN #18 tab 08/09/23 5-325] Metoprolol Tartrate [Lopressor] 25 mg PO TID #0 08/09/23 Piperacillin-Tazobactam [Zosyn] 3.375 gm IVPB Q8HR #120 each 08/09/23 droNABinol [Marinol] 2.5 mg PO BID #6 cap 08/09/23 haloperidoL [Haldol] 2.5 mg PO HS #3 tab 08/09/23 Allergies Allergy/AdvReac Type Severity Reaction Status Date / Time metformin Allergy Unknown Verified 08/21/23 16:58 Sulfa (Sulfonamide Allergy Unknown Verified 08/21/23 16:58 Antibiotics) Review of Systems ROS Statement: Those systems with pertinent positive or pertinent negative responses have been documented in the HPI. ROS Other: All systems not noted in ROS Statement are negative. Past Medical History Past Medical History: CVA/TIA, Dementia, Diabetes Mellitus, Hypertension, Osteoarthritis (OA) Additional Past Medical History / Comment(s): Pt states she is on an antibiotic for ear infection/throat infection at this time, TIA which affected speech, pt denies HTN but it is documented in past medical hx, diet controlled diabetes History of Any Multi-Drug Resistant Organisms: None Reported Past Surgical History: Orthopedic Surgery Additional Past Surgical History / Comment(s): I&D tooth abscess, left trigger finger surgery Past Anesthesia/Blood Transfusion Reactions: No Reported Reaction Past Psychological History: Anxiety, Bipolar, Depression Smoking Status: Never smoker Past Alcohol Use History: None Reported Past Drug Use History: None Reported - Past Family History Father Family Medical History: No Reported History Mother Family Medical History: No Reported History General Exam Limitations: no limitations General appearance: alert, in no apparent distress Head exam: Present: atraumatic, normocephalic Eye exam: Present: normal appearance, PERRL ENT exam: Present: normal exam Neck exam: Present: normal inspection. Absent: tenderness, meningismus Respiratory exam: Present: normal lung sounds bilaterally. Absent: respiratory distress, wheezes Cardiovascular Exam: Present: regular rate, normal rhythm GI/Abdominal exam: Present: soft. Absent: distended, tenderness, guarding Extremities exam: Present: normal inspection, normal capillary refill. Absent: tenderness Neurological exam: Present: alert, oriented X3 Skin exam: Present: warm, dry, intact Course Vital Signs 08/21/23 16:55 Temperature 98 F Pulse Rate 111 H Respiratory 20 Rate Blood Pressure 139/55 O2 Sat by Pulse 97 Oximetry Medical Decision Making - Medical Decision Making Was pt. sent in by a medical professional or institution ([facility], [employer], urgent care, hospital, or fdc...) When possible be specific @ -No Did you speak to anyone other than the patient for history (EMS, parent, family, police, friend...)? What history was obtained from this source @ -Patient's daughter who is at bedside. Did you review nursing and triage notes (agree or disagree)? Why? @ -I reviewed and agree with nursing and triage notes Were old charts reviewed (outside hosp., previous admission, EMS record, old EKG, old radiological studies, urgent care reports/EKG's, [facility]dc records)? Report findings @ -No old charts were reviewed Differential Diagnosis (chest pain, altered mental status, abdominal pain women, abdominal pain men, vaginal bleeding, weakness, fever, dyspnea, syncope, headache, dizziness, GI bleed, back pain, seizure, CVA, palpatations, mental health, musculoskeletal)? @ -Injury status post mechanical fall. EKG interpreted by me (3pts min.). @ -As above X-rays interpreted by me (1pt min.). @X-rays of the chest and pelvis are performed, negative for traumatic injury. CT interpreted by me (1pt min.). @ -None done U/S interpreted by me (1pt. min.). @ -None done What testing was considered but not performed or refused? (CT, X-rays, U/S, labs)? Why? @ -None What meds were considered but not given or refused? Why? @ -None Did you discuss the management of the patient with other professionals (professionals i.e. Dr., PA, [employer], lab, RT, psych nurse, social work instructor, cyber operator, teacher, accounts officer, keycase assembler)? Give summary @ -No Was smoking cessation discussed for >3mins.? @ -No Was critical care preformed (if so, how long)? @ -No Were there social determinants of health that impacted care today? How? (Homele ssness, low income, unemployed, alcoholism, drug addiction, transportation, low edu. Level, literacy, decrease access to med. care, halfway, rehab)? @ -No Was there de-escalation of care discussed even if they declined (Discuss DNR or withdrawal of care, Hospice)? DNR status @ -No What co-morbidities impacted this encounter? (DM, HTN, Smoking, COPD, CAD, Cancer, CVA, ARF, Chemo, Hep., AIDS, mental health diagnosis, sleep apnea, morbid obesity)? @ -Debility requiring rehabilitation Was patient admitted / discharged? Hospital course, mention meds given and route, prescriptions, significant lab abnormalities, going to OR and other pertinent info. @ -[77-year-old female with fall. Patient denying injury. No complaints. She is alert and oriented without external signs of trauma. Did perform a chest and pelvis x-ray which were negative for traumatic injury there is no head or n nicolette trauma. Patient stable for discharge at this time, will return to the [facility]. Undiagnosed new problem with uncertain prognosis? @ -No Drug Therapy requiring intensive monitoring for toxicity (Heparin, Nitro, Insulin, Cardizem)? @ -No Were any procedures done? @ -No Diagnosis/symptom? @ -[Fall Acute, or Chronic, or Acute on Chronic? @Acute Uncomplicated (without systemic symptoms) or Complicated (systemic symptoms)? @ -[UNComplicated Side effects of treatment? @ -No Exacerbation, Progression, or Severe Exacerbation? @ -No Poses a threat to life or bodily function? How? (Chest pain, [place], [place], pneumonia, PE, COPD, DKA, ARF, appy, cholecystitis, CVA, Diverticulitis, Homicidal, Suicidal, threat to staff... and all critical care pts) @ -No Disposition Clinical Impression: Fall Disposition: HOME SELF-CARE Condition: Fair Instructions (If sedation given, give patient instructions): Fall Prevention for Older Adults (ED) Is patient prescribed a controlled substance at d/c from ED?: No Referrals: None,Stated [Primary Care Provider] - 1-2 days Time of Disposition: 18:31
[2023-08-21] MEDS ORDERED: HYDROcodone/APAP 5-325MG 1 EACH TAB PO STA (18:38)
[2023-08-21 19:29] VITALS: BP 128/79; PULSE 102
== END 2023-08-21 19:06 | disposition home or self-care (01) ==
LOC: EC 16:51
DX: M16.12 Unilateral primary osteoarthritis, left hip (principal); M85.80 Other specified disorders of bone density and structure, unspecified site; E11.9 Type 2 diabetes mellitus without complications; I10 Essential (primary) hypertension; M19.90 Unspecified osteoarthritis, unspecified site; Z86.73 Personal history of transient ischemic attack (TIA), and cerebral infarction without residual deficits; Z79.01 Long term (current) use of anticoagulants; Z79.1 Long term (current) use of non-steroidal anti-inflammatories (NSAID); Z79.84 Long term (current) use of oral hypoglycemic drugs; Z88.2 Allergy status to sulfonamides; Z88.8 Allergy status to other drugs, medicaments and biological substances; Z79.4 Long term (current) use of insulin; Z88.1 Allergy status to other antibiotic agents; W18.30XA Fall on same level, unspecified, initial encounter
CPT/HCPCS: 71045; 72170; 99284

== ENCOUNTER 2023-10-07 19:18 | Inpatient (IN) | payer MEDICARE ==
--- NOTE | 2023-10-07 19:41 | ED ---
General Adult HPI - General Chief complaint: Fever Stated complaint: Fever Time Seen by Provider: 10/07/23 19:21 Source: patient, family, EMS, RN notes reviewed Mode of arrival: EMS Limitations: no limitations - History of Present Illness Initial comments: Patient is a pleasant 77-year-old female presenting to the emergency department with history of reported fever. Patient poorly had temperature of 101.8 prior to arrival. Patient is a poor historian and unable to provide any history. Patient states she feels fine and has no complaints. Patient does have gluteal wound VAC that was changed today at wound center and was reported that it looked well. Patient denies any upper respiratory symptoms or cough. Patient denies any abdominal pain. - Related Data Home Medications Medication Instructions Recorded Confirmed 0.9 % Sodium Chloride [Sodium 10 ml IV Q6H 07/29/23 08/15/23 Chloride Flush] Apixaban [Eliquis] 5 mg PO BID 07/29/23 08/15/23 Ascorbic Acid [Vitamin C] 250 mg PO DAILY 07/29/23 08/15/23 Benztropine Mesylate [Cogentin] 2 mg PO HS 07/29/23 08/15/23 Cholecalciferol [Vitamin D3 (25 25 mcg PO DAILY 07/29/23 08/15/23 Mcg = 1000 Iu)] Famotidine [Pepcid] 20 mg PO DAILY 07/29/23 08/15/23 Ferrous Sulfate [Iron] 325 mg PO DAILY 07/29/23 08/15/23 Insulin Lispro [humaLOG Kwikpen] See Protocol SQ AC-TID 07/29/23 08/15/23 Lactulose 20 gm PO DAILY 07/29/23 08/15/23 Magnesium Hydroxide [Milk of 2,400 mg PO Q72H PRN 07/29/23 08/15/23 Magnesia] Multivitamins, Thera [Multivitamin 1 tab PO DAILY 07/29/23 08/15/23 (formulary)] Sennosides/Docusate Sodium [Senna 1 tab PO BID 07/29/23 08/15/23 Plus 8.6-50 mg Tablet] polyethylene glycoL 3350 [Miralax] 17 gm PO BID 07/29/23 08/15/23 sitaGLIPtin [Januvia] 50 mg PO DAILY 07/29/23 08/15/23 Diclofenac Sodium Gel [Voltaren 1% 2 gm TOPICAL Q6H 08/15/23 08/15/23 Gel] Brandan Packet 1 packet PO AC-BID 08/15/23 08/15/23 Previous Rx's Medication Instructions Recorded Acetaminophen Tab [Tylenol] 500 mg PO Q6HR PRN tab 08/09/23 Anidulafungin [Eraxis] 100 mg IVPB DAILY #40 each 08/09/23 Gabapentin [Neurontin] 100 mg PO BID #6 cap 08/09/23 HYDROcodone/APAP 5-325MG [[place] 1 tab PO Q4HR PRN #18 tab 08/09/23 5-325] Metoprolol Tartrate [Lopressor] 25 mg PO TID #0 08/09/23 Piperacillin-Tazobactam [Zosyn] 3.375 gm IVPB Q8HR #120 each 08/09/23 droNABinol [Marinol] 2.5 mg PO BID #6 cap 08/09/23 haloperidoL [Haldol] 2.5 mg PO HS #3 tab 08/09/23 Allergies Allergy/AdvReac Type Severity Reaction Status Date / Time metformin Allergy Unknown Verified 10/07/23 19:35 Sulfa (Sulfonamide Allergy Unknown Verified 10/07/23 19:35 Antibiotics) Review of Systems ROS Statement: Those systems with pertinent positive or pertinent negative responses have been documented in the HPI. ROS Other: All systems not noted in ROS Statement are negative. Constitutional: Reports: as per HPI, fever Eyes: Denies: eye pain ENT: Denies: ear pain, congestion Respiratory: Denies: cough, dyspnea Cardiovascular: Denies: chest pain Endocrine: Denies: fatigue Gastrointestinal: Denies: abdominal pain Genitourinary: Denies: dysuria Musculoskeletal: Denies: back pain Past Medical History Past Medical History: CVA/TIA, Dementia, Diabetes Mellitus, Hypertension, Osteoarthritis (OA) Additional Past Medical History / Comment(s): Pt states she is on an antibiotic for ear infection/throat infection at this time, TIA which affected speech, pt denies HTN but it is documented in past medical hx, diet controlled diabetes History of Any Multi-Drug Resistant Organisms: None Reported Past Surgical History: Orthopedic Surgery Additional Past Surgical History / Comment(s): I&D tooth abscess, left trigger finger surgery Past Anesthesia/Blood Transfusion Reactions: No Reported Reaction Past Psychological History: Anxiety, Bipolar, Depression Smoking Status: Never smoker Past Alcohol Use History: None Reported Past Drug Use History: None Reported - Past Family History Father Family Medical History: No Reported History Mother Family Medical History: No Reported History General Exam Limitations: no limitations General appearance: alert, in no apparent distress Head exam: Present: normocephalic Eye exam: Present: normal appearance Neck exam: Present: normal inspection. Absent: tenderness, meningismus Respiratory exam: Present: normal lung sounds bilaterally Cardiovascular Exam: Present: regular rate, normal rhythm GI/Abdominal exam: Present: soft. Absent: tenderness Extremities exam: Present: normal inspection Neurological exam: Present: alert Psychiatric exam: Present: normal affect, normal mood Skin exam: Present: other (Wound VAC right lateral gluteal without any altamirano rrounding erythema or discharge.) Course Vital Signs 10/07/23 10/07/23 19:23 22:06 Temperature 98.3 F Pulse Rate 98 88 Respiratory 18 18 Rate Blood Pressure 153/75 132/64 O2 Sat by Pulse 96 97 Oximetry EKG Findings - EKG Results: EKG: interpreted by ERMD (Left axis. Low QRS voltage.), sinus rhythm, normal ST/T Medical Decision Making - Medical Decision Making Was pt. sent in by a medical professional or institution (, PA, [employer], urgent care, hospital, or long term...) When possible be specific @ -Patient was sent in by nursing facility. Did you speak to anyone other than the patient for history (EMS, parent, family, police, friend...)? What history was obtained from this source @ -Family does provide some history. They state patient does currently have PICC line with IV antibiotics however unclear what. Did you review nursing and triage notes (agree or disagree)? Why? @ -I reviewed and agree with nursing and triage notes Were old charts reviewed (outside hosp., previous admission, EMS record, old EKG, old radiological studies, urgent care reports/EKG's, long term records)? Report findings @ -Nursing facility did not provide paperwork. Differential Diagnosis (chest pain, altered mental status, abdominal pain women, abdominal pain men, vaginal bleeding, weakness, fever, dyspnea, syncope, headache, dizziness, GI bleed, back pain, seizure, CVA, palpatations, mental health, musculoskeletal)? @ -Differential Fever: Pneumonia, viral URI, endocarditis, myocarditis, pericarditis, otitis, sinu sitis, peritonsillar Abscess, retropharyngeal Abscess, epiglottitis, peritonitis, appendicitis, Rosemary cystitis, diverticulitis, hepatitis, colitis, UTI, PID, TOA, pyelonephritis, prostatitis, epididymitis, meningitis, encephalitis, pulmonary embolism, CVA, thyroid storm, pancreatitis, adrenal crisis, cavernous sinus thrombosis, this is not meant to be an all-inclusive list. EKG interpreted by me (3pts min.). @ -As above X-rays interpreted by me (1pt min.). @ -Chest x-ray shows no acute process CT interpreted by me (1pt min.). @ -None done U/S interpreted by me (1pt. min.). @ -None done What testing was considered but not performed or refused? (CT, X-rays, U/S, labs)? Why? @ -None What meds were considered but not given or refused? Why? @ -None Did you discuss the management of the patient with other professionals (professionals i.e. , PA, [employer], lab, RT, psych nurse, social work manager, new product trainer, teacher, surveillance officer, gearcase assembler)? Give summary @ -Case was discussed with Dr. Zuñiga, who will admit covering Dr. Mijares Was smoking cessation discussed for >3mins.? @ -No Was critical care preformed (if so, how long)? @ -No Were there social determinants of health that impacted care today? How? (Homelessness, low income, unemployed, alcoholism, drug addiction, transportation, low edu. Level, literacy, decrease access to med. care, shelter, rehab)? @ -No Was there de-escalation of care discussed even if they declined (Discuss DNR or withdrawal of care, Hospice)? DNR status @ -No What co-morbidities impacted this encounter? (DM, HTN, Smoking, COPD, CAD, Cancer, CVA, ARF, Chemo, Hep., AIDS, mental health diagnosis, sleep apnea, m orbid obesity)? @ -None Was patient admitted / discharged? Hospital course, mention meds given and route, prescriptions, significant lab abnormalities, going to OR and other pertinent info. @ -Patient reevaluated and resting comfortably in bed. Patient and family updated on results and plan. She will be admitted. Patient will have surgical consult for wound. Admission orders written. Cultures will be obtained. Undiagnosed new problem with uncertain prognosis? @ -No Drug Therapy requiring intensive monitoring for toxicity (Heparin, Nitro, Insulin, Cardizem)? @ -No Were any procedures done? @ -No Diagnosis/symptom? @ -Fever Acute, or Chronic, or Acute on Chronic? @ -Acute Uncomplicated (without systemic symptoms) or Complicated (systemic symptoms)? @ -default Side effects of treatment? @ -No Exacerbation, Progression, or Severe Exacerbation? @ -No Poses a threat to life or bodily function? How? (Chest pain, [place], [place], pneumonia, PE, COPD, DKA, ARF, appy, cholecystitis, CVA, Diverticulitis, Homicidal, [place] icidal, threat to staff... and all critical care pts) @ -No - Lab Data Result diagrams: 10/07/23 20:00 10/07/23 20:00 Lab Results 10/07/23 10/07/23 10/07/23 Range/Units 20:00 20:00 20:00 WBC 10.7 H (3.8-10.6) k/uL RBC 3.24 L (3.80-5.40) m/uL Hgb 9.8 L (11.4-16.0) gm/dL Hct 30.5 L (34.0-46.0) % MCV 93.9 (80.0-100.0) fL MCH 30.1 (25.0-35.0) pg MCHC 32.0 (31.0-37.0) g/dL RDW 15.8 H (11.5-15.5) % Plt Count 404 (150-450) k/uL MPV 7.9 PT 10.6 (10.0-12.5) sec INR 1.0 (<1.2) APTT 23.2 (22.0-30.0) sec Sodium 141 (137-145) mmol/L Potassium 4.4 (3.5-5.1) mmol/L Chloride 104 (98-107) mmol/L Carbon Dioxide 27 (22-30) mmol/L Anion Gap 10 mmol/L BUN 29 H (7-17) mg/dL Creatinine 0.62 (0.52-1.04) mg/dL Est GFR (CKD-EPI)AfAm >90 (>60 ml/min/1.73 sqM) Est GFR (CKD-EPI)NonAf 88 (>60 ml/min/1.73 sqM) Glucose 123 H (74-99) mg/dL Plasma Lactic Acid John (0.7-2.0) mmol/L Calcium 10.0 (8.4-10.2) mg/dL Total Bilirubin 0.4 (0.2-1.3) mg/dL AST 28 (14-36) U/L ALT 22 (4-34) U/L Alkaline Phosphatase 143 H (38-126) U/L Total Protein 9.3 H (6.3-8.2) g/dL Albumin 3.6 (3.5-5.0) g/dL Urine Color Urine Appearance (Clear) Urine pH (5.0-8.0) Ur Specific Mars (1.001-1.035) Urine Protein (Negative) Urine Glucose (UA) (Negative) Urine Ketones (Negative) Urine Blood (Negative) Urine Nitrite (Negative) Urine Bilirubin (Negative) Urine Urobilinogen (<2.0) mg/dL Ur Leukocyte Esterase (Negative) Influenza Type A (PCR) (Not Detectd) Influenza Type B (PCR) (Not Detectd) RSV (PCR) (Not Detectd) SARS-CoV-2 (PCR) (Not Detectd) 10/07/23 10/07/23 10/07/23 Range/Units 20:00 20:05 21:00 WBC (3.8-10.6) k/uL RBC (3.80-5.40) m/uL Hgb (11.4-16.0) gm/dL Hct (34.0-46.0) % MCV (80.0-100.0) fL MCH (25.0-35.0) pg MCHC (31.0-37.0) g/dL RDW (11.5-15.5) % Plt Count (150-450) k/uL MPV PT (10.0-12.5) sec INR (<1.2) APTT (22.0-30.0) sec Sodium (137-145) mmol/L Potassium (3.5-5.1) mmol/L Chloride (98-107) mmol/L Carbon Dioxide (22-30) mmol/L Anion Gap mmol/L BUN (7-17) mg/dL Creatinine (0.52-1.04) mg/dL Est GFR (CKD-EPI)AfAm (>60 ml/min/1.73 sqM) Est GFR (CKD-EPI)NonAf (>60 ml/min/1.73 sqM) Glucose (74-99) mg/dL Plasma Lactic Acid John 1.2 (0.7-2.0) mmol/L Calcium (8.4-10.2) mg/dL Total Bilirubin (0.2-1.3) mg/dL AST (14-36) U/L ALT (4-34) U/L Alkaline Phosphatase (38-126) U/L Total Protein (6.3-8.2) g/dL Albumin (3.5-5.0) g/dL Urine Color Colorless Urine Appearance Clear (Clear) Urine pH 6.5 (5.0-8.0) Ur Specific [place] 1.008 (1.001-1.035) Urine Protein Negative (Negative) Urine Glucose (UA) Negative (Negative) Urine Ketones Negative (Negative) Urine Blood Negative (Negative) Urine Nitrite Negative (Negative) Urine Bilirubin Negative (Negative) Urine Urobilinogen <2.0 (<2.0) mg/dL Ur Leukocyte Esterase Negative (Negative) Influenza Type A (PCR) Not Detected (Not Detectd) Influenza Type B (PCR) Not Detected (Not Detectd) RSV (PCR) Not Detected (Not Detectd) SARS-CoV-2 (PCR) Not Detected (Not Detectd) Disposition Clinical Impression: Fever Disposition: ADMITTED IP TO THIS HOSP Is patient prescribed a controlled substance at d/c from ED?: No Referrals: Phoebe Cotto MD [Primary Care Provider] - 1-2 days Time of Disposition: 23:35
--- NOTE | 2023-10-07 21:17 | XR ---
EXAMINATION TYPE: XR chest 2V DATE OF EXAM: 10/07/2023 COMPARISON: 08/21/2023 INDICATION: Fever sepsis TECHNIQUE: Frontal and lateral views of the chest are obtained. FINDINGS: The heart size is normal. The pulmonary vasculature is normal. The lungs are clear. PICC line is present on the right with the tip in the superior vena cava region . Fixation pedicle screws and rods are present within the thoracolumbar region IMPRESSION: 1. No acute pulmonary process.
[2023-10-07 21:24] LABS: Basophils % (A) 0 %; Eosinophils # (A) 0.3 k/uL (0-0.7); Eosinophils % (A) 2 %; HCT 30.5 % (34.0-46.0); HGB 9.8 gm/dL (11.4-16.0); Lymphocytes % (A) 56 %; MCH 30.1 pg (25.0-35.0); MCV 93.9 fL (80.0-100.0); Mean Platelet Volume 7.9; Monocytes # (A) 0.4 k/uL (0-1.0); Monocytes % (A) 4 %; Neutrophils # (A) 3.8 k/uL (1.3-7.7); Neutrophils % (A) 36 %; Platelet Count 404 k/uL (150-450); RBC 3.24 m/uL (3.80-5.40); RDW 15.8 % (11.5-15.5); WBC 10.7 k/uL (3.8-10.6)
[2023-10-07 21:29] LABS: Partial Thromboplastin Time 23.2 sec (22.0-30.0); Prothrombin Time 10.6 sec (10.0-12.5)
[2023-10-07 21:36] LABS: ALT 22 U/L (4-34); AST 28 U/L (14-36); African American GFR (CKD) >90 (>60 ml/min/1.73 sqM); Albumin 3.6 g/dL (3.5-5.0); Alkaline Phosphatase 143 U/L (38-126); Anion Gap 10 mmol/L; Blood Urea Nitrogen 29 mg/dL (7-17); Carbon Dioxide 27 mmol/L (22-30); Chloride 104 mmol/L (98-107); Glucose 123 mg/dL (74-99); Non-African American GFR(CKD) 88 (>60 ml/min/1.73 sqM); Potassium 4.4 mmol/L (3.5-5.1); Sodium 141 mmol/L (137-145); Total Bilirubin 0.4 mg/dL (0.2-1.3); Total Protein 9.3 g/dL (6.3-8.2)
[2023-10-07 21:44] LABS: Appearance,Urine Clear (Clear); Bilirubin,Urine Negative (Negative); Blood,Urine Negative (Negative); Color,Urine Colorless; Glucose,Urine (UA) Negative (Negative); Ketones,Urine Negative (Negative); Leukocyte Esterase,Urine Negative (Negative); Nitrite,Urine Negative (Negative); PH, Urine 6.5 (5.0-8.0); Protein,Urine Negative (Negative); Specific Gravity,Urine 1.008 (1.001-1.035); Urobilinogen,Urine <2.0 mg/dL (<2.0)
[2023-10-07] MEDS ORDERED: HYDROcodone/APAP 5-325MG 1 EACH TAB PO STA (21:58)
[2023-10-07] MEDS ORDERED: VANCOMYCIN IV PER PHARMACY 1 EACH MISC MISCELLANE PRN (23:36)
[2023-10-07] MEDS ORDERED: IBUPROFEN 400 MG TAB PO PRN (23:36)
[2023-10-07] MEDS ORDERED: ACETAMINOPHEN TAB 325 MG TAB PO PRN (23:36)
[2023-10-07] MEDS ORDERED: NALOXONE 0.4 MG/ML 1 ML VIAL IV PRN (23:36)
[2023-10-08] MEDS: SODIUM CHLORIDE 0.9% 1,000 ML IV SCH ×2 (00:10→13:42)
[2023-10-08] MEDS ORDERED: VANCOMYCIN 1,250 MG in SODIUM CHLORIDE 0.9% 250 ML IVPB STA (00:59)
[2023-10-08] MEDS ORDERED: HYDROcodone/APAP 5-325MG 1 EACH TAB PO STA (06:36)
[2023-10-08] MEDS ORDERED: ACETAMINOPHEN TAB 500 MG TAB PO PRN (11:07)
[2023-10-08] MEDS ORDERED: DEXTROSE 50% SYRINGE 50 ML IVP PRN ×2 (11:10)
[2023-10-08] MEDS ORDERED: NON FORMULARY DRUG (Prostat 30 ML) PO SCH (11:15)
[2023-10-08] MEDS ORDERED: NON FORMULARY DRUG (Juven Packet 1 PACKET Packet) PO SCH (11:15)
--- NOTE | 2023-10-08 12:22 | P.GSCN ---
History of Present Illness Consult date: 10/08/23 History of present illness: CHIEF COMPLAINT: Fever HISTORY OF PRESENT ILLNESS: This is a 77-year-old female who presented to the emergency room from [facility] due to a fever. Apparently she had a fever of 101.8. She's been afebrile here. Patient is a poor historian. But she has missed no significant complaints. She does have pain where her wound is located on the sacrum. She had a prior debridement of sacral ulcer in July 2023. Patient has a wound VAC in place. She's been following at the wound care center. Her charting patient had wound VAC changed yesterday and the wound care center he reported that it had looked well. Wound care service has been consulted. Patient has wound VAC in place. White count essentially normal at 10.7. PAST MEDICAL HISTORY: See list. PAST SURGICAL HISTORY: See list. MEDICATIONS: See list. ALLERGIES: See list. SOCIAL HISTORY: No illicit drug use. REVIEW OF SYSTEMS: CONSTITUTIONAL: Denies fever or chills. HEENT: Denies blurred vision, vision changes, or eye pain. Denies hemoptysis ENDOCRINE: Denies heat or cold intolerance. CARDIOVASCULAR: Denies chest pain or pressure. RESPIRATORY: No shortness of breath. GASTROINTESTINAL: Denies abdominal pain. Denies nausea or vomiting. NEURO: Denies history of seizures. PSYCH: No depression or suicidal ideation HEMATOLOGIC: Denies bleeding disorders. LYMPHATIC: The patient denies any lumps and bumps around the neck. GENITOURINARY: Denies any blood in urine or increased urinary frequency. MUSCULOSKELETAL: Denies myalgias. Denies joint swelling. Denies decreased range of motion beyond patients baseline. SKIN: Denies pruitis. Denies rash. PHYSICAL EXAM: VITAL SIGNS: Reviewed GENERAL: Well-developed in no acute distress. HEENT: No sclera icterus. Extraocular movements grossly intact. Moist buccal mucosa. Head is atraumatic, normocephalic. Hears conversational speech. No nasal drainage. NECK: Supple without lymphadenopathy. CHEST: Non-labored respirations and equal bilateral excursions. CARDIOVASCULAR: Palpable 2+ radial pulses. ABDOMEN: Soft. Nondistended. Nontender MUSCULOSKELETAL: No clubbing or cyanosis. NEUROLOGIC: No focal or lateralizing signs. Cranial nerves II through XII grossly intact. PSYCH: Appropriate affect. Awake and alert SKIN: Well perfused. Good skin turgor. wound vac in place right lateral gluteal area. No erythema LABORATORY DATA: WBC 10.7 HGb 9.8 Plt 404 Na 141 K 4.4 Cr 0.62 Lactic acid 1.2 Urinalysis negative Influenza, RSV and COVID-19 not detected IMAGING: Chest x-ray no acute process ASSESSMENT: 1. Sacrococcygeal decubitus ulcer status post debridement on 08/05/2023 2. Fever 3. Dementia 4. DVT history 5. Diabetes type 2 insulin-dependent 6. History of TIA 7. Hypertensive heart disease 8. Generalized anxiety disorder 9. Depression 10. History of iron deficiency anemia PLAN: -Agree with wound care service consult -Continue wound VAC and local wound care -Continue offloading -Consult infectious disease for antibiotic management Physician Creative Writing Teacher note has been reviewed by physician. Signing provider agrees with the documented findings, assessment, and plan of care. Past Medical History Past Medical History: CVA/TIA, Dementia, Diabetes Mellitus, Hypertension, Osteoarthritis (OA) Additional Past Medical History / Comment(s): Pt states she is on an antibiotic for ear infection/throat infection at this time, TIA which affected speech, pt denies HTN but it is documented in past medical hx, diet controlled diabetes History of Any Multi-Drug Resistant Organisms: None Reported Past Surgical History: Orthopedic Surgery Additional Past Surgical History / Comment(s): I&D tooth abscess, left trigger finger surgery Past Anesthesia/Blood Transfusion Reactions: No Reported Reaction Past Psychological History: Anxiety, Bipolar, Depression Smoking Status: Never smoker Past Alcohol Use History: None Reported Past Drug Use History: None Reported - Past Family History Father Family Medical History: No Reported History Mother Family Medical History: No Reported History Medications and Allergies Home Medications Medication Instructions Recorded Confirmed Type 0.9 % Sodium Chloride [Sodium 10 ml IV Q6H 07/29/23 10/08/23 History Chloride Flush] Apixaban [Eliquis] 5 mg PO BID 07/29/23 10/08/23 History Ascorbic Acid [Vitamin C] 250 mg PO DAILY 07/29/23 10/08/23 History Benztropine Mesylate [Cogentin] 2 mg PO HS 07/29/23 10/08/23 History Cholecalciferol [Vitamin D3 (25 25 mcg PO DAILY 07/29/23 10/08/23 History Mcg = 1000 Iu)] Famotidine [Pepcid] 20 mg PO DAILY 07/29/23 10/08/23 History Ferrous Sulfate [Iron] 325 mg PO DAILY 07/29/23 10/08/23 History Lactulose 20 gm PO DAILY 07/29/23 10/08/23 History Magnesium Hydroxide [Milk of 2,400 mg PO Q72H PRN 07/29/23 10/08/23 History Magnesia] Multivitamins, Thera [Multivitamin 1 tab PO DAILY 07/29/23 10/08/23 History (formulary)] Sennosides/Docusate Sodium [Senna 1 tab PO BID 07/29/23 10/08/23 History Plus 8.6-50 mg Tablet] polyethylene glycoL 3350 [Miralax] 17 gm PO BID 07/29/23 10/08/23 History sitaGLIPtin [Januvia] 50 mg PO DAILY 07/29/23 10/08/23 History Acetaminophen Tab [Tylenol] 500 mg PO Q6HR PRN tab 08/09/23 10/08/23 Rx Gabapentin [Neurontin] 100 mg PO BID #6 cap 08/09/23 10/08/23 Rx HYDROcodone/APAP 5-325MG [Page 1 tab PO Q4HR PRN #18 tab 08/09/23 10/08/23 Rx 5-325] Metoprolol Tartrate [Lopressor] 25 mg PO TID #0 08/09/23 10/08/23 Rx Piperacillin-Tazobactam [Zosyn] 3.375 gm IVPB Q8HR #120 each 08/09/23 10/08/23 Rx droNABinol [Marinol] 2.5 mg PO BID #6 cap 08/09/23 10/08/23 Rx haloperidoL [Haldol] 2.5 mg PO HS #3 tab 08/09/23 10/08/23 Rx Diclofenac Sodium Gel [Voltaren 1% 2 gm TOPICAL Q6H 08/15/23 10/08/23 History Gel] Brandan Packet 1 packet PO AC-BID 08/15/23 10/08/23 History Benzocaine/Menthol [Cepacol Sore 1 lozenge MM Q4H PRN 10/08/23 10/08/23 History Throat Lozenge] Healthshake 1 dose PO TID-W/MEALS 10/08/23 10/08/23 History INSULIN LISPRO (HumaLOG) [humaLOG] See Protocol SQ AC-TID 10/08/23 10/08/23 History Insulin Glargine,Hum.rec.anlog 10 units SQ DAILY 10/08/23 10/08/23 History [Lantus Solostar Pen] Prostat 30 ml PO BID 10/08/23 10/08/23 History Allergies Allergy/AdvReac Type Severity Reaction Status Date / Time metformin Allergy Unknown Verified 10/08/23 09:09 Sulfa (Sulfonamide Allergy Unknown Verified 10/08/23 09:09 Antibiotics) Surgical - Exam Vital Signs Temp Pulse Resp BP Pulse Ox 98.3 F 98 18 153/75 96 10/07/23 19:23 10/07/23 19:23 10/07/23 19:23 10/07/23 19:23 10/07/23 19:23 Results - Labs 10/07/23 20:00 10/07/23 20:00 Abnormal Lab Results - Last 24 Hours (Table) 10/07/23 10/07/23 Range/Units 20:00 20:00 WBC 10.7 H (3.8-10.6) k/uL RBC 3.24 L (3.80-5.40) m/uL Hgb 9.8 L (11.4-16.0) gm/dL Hct 30.5 L (34.0-46.0) % RDW 15.8 H (11.5-15.5) % Lymphocytes # 6.0 H (1.0-4.8) k/uL BUN 29 H (7-17) mg/dL Glucose 123 H (74-99) mg/dL Alkaline Phosphatase 143 H (38-126) U/L Total Protein 9.3 H (6.3-8.2) g/dL Diabetes panel 10/07/23 Range/Units 20:00 Sodium 141 (137-145) mmol/L Potassium 4.4 (3.5-5.1) mmol/L Chloride 104 (98-107) mmol/L Carbon Dioxide 27 (22-30) mmol/L BUN 29 H (7-17) mg/dL Creatinine 0.62 (0.52-1.04) mg/dL Glucose 123 H (74-99) mg/dL Calcium 10.0 (8.4-10.2) mg/dL AST 28 (14-36) U/L ALT 22 (4-34) U/L Alkaline Phosphatase 143 H (38-126) U/L Total Protein 9.3 H (6.3-8.2) g/dL Albumin 3.6 (3.5-5.0) g/dL Calcium panel 10/07/23 Range/Units 20:00 Calcium 10.0 (8.4-10.2) mg/dL Albumin 3.6 (3.5-5.0) g/dL Pituitary panel 10/07/23 Range/Units 20:00 Sodium 141 (137-145) mmol/L Potassium 4.4 (3.5-5.1) mmol/L Chloride 104 (98-107) mmol/L Carbon Dioxide 27 (22-30) mmol/L BUN 29 H (7-17) mg/dL Creatinine 0.62 (0.52-1.04) mg/dL Glucose 123 H (74-99) mg/dL Calcium 10.0 (8.4-10.2) mg/dL Adrenal panel 10/07/23 Range/Units 20:00 Sodium 141 (137-145) mmol/L Potassium 4.4 (3.5-5.1) mmol/L Chloride 104 (98-107) mmol/L Carbon Dioxide 27 (22-30) mmol/L BUN 29 H (7-17) mg/dL Creatinine 0.62 (0.52-1.04) mg/dL Glucose 123 H (74-99) mg/dL Calcium 10.0 (8.4-10.2) mg/dL Total Bilirubin 0.4 (0.2-1.3) mg/dL AST 28 (14-36) U/L ALT 22 (4-34) U/L Alkaline Phosphatase 143 H (38-126) U/L Total Protein 9.3 H (6.3-8.2) g/dL Albumin 3.6 (3.5-5.0) g/dL
[2023-10-08] MEDS ORDERED: NON FORMULARY DRUG (Healthshake 1 DOSE) PO SCH (12:30)
[2023-10-08 12:32] LABS: Basophils % (A) 0 %; Eosinophils # (A) 0.2 k/uL (0-0.7); Eosinophils % (A) 2 %; HCT 30.3 % (34.0-46.0); HGB 9.8 gm/dL (11.4-16.0); Lymphocytes # (A) 4.2 k/uL (1.0-4.8); Lymphocytes % (A) 47 %; MCH 30.3 pg (25.0-35.0); MCHC 32.2 g/dL (31.0-37.0); MCV 94.1 fL (80.0-100.0); Mean Platelet Volume 7.4; Monocytes # (A) 0.3 k/uL (0-1.0); Monocytes % (A) 4 %; Neutrophils # (A) 4.2 k/uL (1.3-7.7); Neutrophils % (A) 46 %; Platelet Count 392 k/uL (150-450); RBC 3.22 m/uL (3.80-5.40); RDW 15.7 % (11.5-15.5)
[2023-10-08 13:03] LABS: ALT 21 U/L (4-34); AST 30 U/L (14-36); African American GFR (CKD) >90 (>60 ml/min/1.73 sqM); Albumin 3.5 g/dL (3.5-5.0); Alkaline Phosphatase 151 U/L (38-126); Anion Gap 10 mmol/L; Blood Urea Nitrogen 19 mg/dL (7-17); Calcium 9.9 mg/dL (8.4-10.2); Carbon Dioxide 23 mmol/L (22-30); Chloride 106 mmol/L (98-107); Glucose 122 mg/dL (74-99); Non-African American GFR(CKD) >90 (>60 ml/min/1.73 sqM); Potassium 4.3 mmol/L (3.5-5.1); Sodium 139 mmol/L (137-145); Total Bilirubin 0.6 mg/dL (0.2-1.3); Total Protein 9.1 g/dL (6.3-8.2)
--- NOTE | 2023-10-08 13:17 | P.HPIM ---
History of Present Illness H&P Date: 10/08/23 Chief Complaint: Fever This is a 77-year-old patient, at rehab at [facility]. Being followed by Dr. Mijares. Chronic stable medical conditions includes dementia, diabetes, hypertension, osteoarthritis, bipolar. June 2023 patient was sent to [facility] where patient was found to have discitis in the lumbar area. - surgery for the same and rods in the spine. - come back to rehab. change in mental status patient is sent back to [facility] again. Patient had been septic. Started on IV Zosyn. started off with bedsores that has progressively gotten worse. Local wound care has continued. As a sacral decubiti this became larger patient sent back to the ER on July 292022. As per the granddaughter they'll prefer to have treatment done here and not [place] if that can be avoided. Patient subsequently went wound debridement. Patient and family declined colostomy. Patient is discharged with PICC line and IV Zosyn,eraxis. Patient at [facility]. Reported a fever of 100.8. And the POA requested the patient to be larger at [facility]. Patient is able to answer simple questions has underlying cognitive impairment. Hungry. Wound VAC in place. Both surgical team and ID consulted. Patient does complain of pain at the sacral decubitus site. Review of systems: Difficult to obtain as patient is underlying cognitive impairment. Past medical history to include: Dementia, diabetes, hypertension, osteoarthritis,, bipolar, discitis-lumbar, sacral decub is ulcer Social history: No smoking or alcohol history. Currently at rehab at [facility]. Patient's son Ar Ramírez is the POA. Physical examination: VITAL SIGNS: 97.4, 87, 20, 150/81, 98% room air GENERAL: Reclining in bed, comfortable EYES: Pupils equal. Conjunctiva normal. HEENT: External appearance of nose and ears normal, oral cavity grossly normal. NECK: JVD not raised; masses not palpable. HEART: First and second heart sounds are normal; no edema. LUNGS: Respiratory rate normal; clear to auscultation. ABDOMEN: Soft, nontender, liver spleen not palpable, no masses palpable. [place] PSYCH: [Able to answer simple questions. Patient stating I do not want colostomy DERMATOLOGICAL: Sacral decubitus ulcer with: Wound VAC MUSCULOSKELETAL:No Clubbing/cyanosis;muscles-grossly intact, OA NEUROLOGICAL: Cranial nerves grossly intact; no facial asymmetry, power and sensation grossly intact. LYMPHATICS: No lymph nodes palpable in the axilla and neck INVESTIGATIONS, reviewed in the clinical context: 10/08/2023: White count 9 hemoglobin 9.8 platelets 392 potassium 4.3 BUN 19 creatinine 0.42 EKG tracing personally reviewed by me- Chest x-ray film personally reviewed by me-no obvious infiltrate Assessment and plan: -Stage IV large sacral decubitus ulcer. Wound culture positive for Pseudomonas on last admission. Patient presents with a temperature 100.8.-Rule out acute exacerbation Consulted: ID Dr. Cotto. Surgery Dr. Atwood. IV Unasyn, As per patient wishes and the son no diverting colostomy-on last admission. Debridement care of by Dr. Nguyen on August 05. Wound VAC in place -Normocytic anemia of chronic disease: Follow H&H -Chronic medical debility. -Chronic constipation MiraLAX, senna plus, lactulose -Diabetes mellitus type 2 Januvia. Lantus Follow Accu-Cheks with sliding scale -Essential hypertension Lopressor 25 mg twice a day -June 2023: of lumbar discitis. Patient had surgery for the same. received antibiotics. -Cognitive impairment -Full code. Spoke to the son Ar today. He says he smoked his family this point. He does still remain full code. -DPOA, Ar Ramírez. Son Resume home medications. Consultation to ID, general surgery, wound care. Spoke to son Ar and the phone updated. Past Medical History Past Medical History: CVA/TIA, Dementia, Diabetes Mellitus, Hypertension, Osteoarthritis (OA) Additional Past Medical History / Comment(s): Pt states she is on an antibiotic for ear infection/throat infection at this time, TIA which affected speech, pt denies HTN but it is documented in past medical hx, diet controlled diabetes History of Any Multi-Drug Resistant Organisms: None Reported Past Surgical History: Orthopedic Surgery Additional Past Surgical History / Comment(s): I&D tooth abscess, left trigger finger surgery Past Anesthesia/Blood Transfusion Reactions: No Reported Reaction Past Psychological History: Anxiety, Bipolar, Depression Smoking Status: Never smoker Past Alcohol Use History: None Reported Past Drug Use History: None Reported - Past Family History Father Family Medical History: No Reported History Mother Family Medical History: No Reported History Medications and Allergies Home Medications Medication Instructions Recorded Confirmed Type 0.9 % Sodium Chloride [Sodium 10 ml IV Q6H 07/29/23 10/08/23 History Chloride Flush] Apixaban [Eliquis] 5 mg PO BID 07/29/23 10/08/23 History Ascorbic Acid [Vitamin C] 250 mg PO DAILY 07/29/23 10/08/23 History Benztropine Mesylate [Cogentin] 2 mg PO HS 07/29/23 10/08/23 History Cholecalciferol [Vitamin D3 (25 25 mcg PO DAILY 07/29/23 10/08/23 History Mcg = 1000 Iu)] Famotidine [Pepcid] 20 mg PO DAILY 07/29/23 10/08/23 History Ferrous Sulfate [Iron] 325 mg PO DAILY 07/29/23 10/08/23 History Lactulose 20 gm PO DAILY 07/29/23 10/08/23 History Magnesium Hydroxide [Milk of 2,400 mg PO Q72H PRN 07/29/23 10/08/23 History Magnesia] Multivitamins, Thera [Multivitamin 1 tab PO DAILY 07/29/23 10/08/23 History (formulary)] Sennosides/Docusate Sodium [Senna 1 tab PO BID 07/29/23 10/08/23 History Plus 8.6-50 mg Tablet] polyethylene glycoL 3350 [Miralax] 17 gm PO BID 07/29/23 10/08/23 History sitaGLIPtin [Januvia] 50 mg PO DAILY 07/29/23 10/08/23 History Acetaminophen Tab [Tylenol] 500 mg PO Q6HR PRN tab 08/09/23 10/08/23 Rx Gabapentin [Neurontin] 100 mg PO BID #6 cap 08/09/23 10/08/23 Rx HYDROcodone/APAP 5-325MG [[place] 1 tab PO Q4HR PRN #18 tab 08/09/23 10/08/23 Rx 5-325] Metoprolol Tartrate [Lopressor] 25 mg PO TID #0 08/09/23 10/08/23 Rx Piperacillin-Tazobactam [Zosyn] 3.375 gm IVPB Q8HR #120 each 08/09/23 10/08/23 Rx droNABinol [Marinol] 2.5 mg PO BID #6 cap 08/09/23 10/08/23 Rx haloperidoL [Haldol] 2.5 mg PO HS #3 tab 08/09/23 10/08/23 Rx Diclofenac Sodium Gel [Voltaren 1% 2 gm TOPICAL Q6H 08/15/23 10/08/23 History Gel] Brandan Packet 1 packet PO AC-BID 08/15/23 10/08/23 History Benzocaine/Menthol [Cepacol Sore 1 lozenge MM Q4H PRN 10/08/23 10/08/23 History Throat Lozenge] Healthshake 1 dose PO TID-W/MEALS 10/08/23 10/08/23 History INSULIN LISPRO (HumaLOG) [humaLOG] See Protocol SQ AC-TID 10/08/23 10/08/23 History Insulin Glargine,Hum.rec.anlog 10 units SQ DAILY 10/08/23 10/08/23 History [Lantus Solostar Pen] Prostat 30 ml PO BID 10/08/23 10/08/23 History Allergies Allergy/AdvReac Type Severity Reaction Status Date / Time metformin Allergy Unknown Verified 10/08/23 09:09 Sulfa (Sulfonamide Allergy Unknown Verified 10/08/23 09:09 Antibiotics) Physical Exam Vitals: Vital Signs Temp Pulse Pulse Resp BP BP Pulse Ox 10/08/23 07:57 97.4 F L 87 20 150/81 98 10/08/23 06:00 88 18 150/78 98 10/08/23 03:00 81 16 135/73 96 10/07/23 22:06 88 18 132/64 97 10/07/23 19:23 98.3 F 98 18 153/75 96 Intake and Output 10/07/23 10/08/23 10/08/23 22:59 06:59 14:59 Other: Weight 73.028 kg Results CBC & Chem 7: 10/08/23 11:51 10/07/23 20:00 Labs: Abnormal Lab Results - Last 24 Hours (Table) 10/07/23 10/07/23 Range/Units 20:00 20:00 WBC 10.7 H (3.8-10.6) k/uL RBC 3.24 L (3.80-5.40) m/uL Hgb 9.8 L (11.4-16.0) gm/dL Hct 30.5 L (34.0-46.0) % RDW 15.8 H (11.5-15.5) % Lymphocytes # 6.0 H (1.0-4.8) k/uL BUN 29 H (7-17) mg/dL Glucose 123 H (74-99) mg/dL Alkaline Phosphatase 143 H (38-126) U/L Total Protein 9.3 H (6.3-8.2) g/dL
[2023-10-08] MEDS: APIXABAN 5 MG TAB PO SCH ×2 (13:33→21:42)
[2023-10-08] MEDS: polyethylene glycoL 3350 17 GM POWD.PACK PO SCH ×3 (13:33→21:43)
[2023-10-08] MEDS: LACTULOSE 20 GM/30 ML CUP PO SCH ×2 (13:33→13:44)
[2023-10-08] MEDS: SENNOSIDES-DOCUSATE SODIUM 1 EACH TAB PO SCH ×2 (13:34→21:42)
[2023-10-08] MEDS: HYDROcodone/APAP 5-325MG 1 EACH TAB PO PRN ×2 (13:34→19:00)
[2023-10-08] MEDS: droNABinol 2.5 MG CAP PO SCH ×2 (13:34→21:42)
[2023-10-08] MEDS: MULTIVITAMINS, THERA 1 EACH TAB PO SCH (13:34)
[2023-10-08] MEDS: FAMOTIDINE 20 MG TAB PO SCH (13:34)
[2023-10-08] MEDS: LINAGLIPTIN 5 MG TABLET PO SCH (13:34)
[2023-10-08] MEDS: METOPROLOL TARTRATE 25 MG TAB PO SCH ×3 (13:34→21:44)
[2023-10-08] MEDS: GABAPENTIN 100 MG CAP PO SCH ×2 (13:34→21:42)
[2023-10-08] MEDS: INSULIN DETEMIR (LEVEMIR) 100 UNIT/ML SYR SQ SCH (13:41)
[2023-10-08] MEDS: INSULIN ASPART (NovoLOG) 100 UNIT/ML VIAL SQ SCH ×2 (13:59→17:30)
[2023-10-08 14:00] LABS: Glucose,Whole Blood 141 mg/dL (70-110)
[2023-10-08] MEDS: VANCOMYCIN 1,250 MG in SODIUM CHLORIDE 0.9% 250 ML IVPB SCH (15:42)
[2023-10-08 16:58] LABS: Glucose,Whole Blood 141 mg/dL (70-110)
[2023-10-08] MEDS: DICLOFENAC SODIUM GEL 100 GM TUBE TOPICAL SCH ×3 (17:48→23:12)
[2023-10-08] MEDS: BENZTROPINE MESYLATE 1 MG TAB PO SCH (21:42)
[2023-10-08] MEDS: haloperidoL 5 MG TAB PO SCH (21:43)
--- NOTE | 2023-10-08 22:18 | P.CONS ---
History of Present Illness - Reason for Consult Consult date: 10/08/23 Sacral wound antibiotic management Requesting physician: Samaria Man - Chief Complaint Fever x 1 day - History of Present Illness Patient is a 77-year-old -[place] Citizen female with a past medical history significant for infected sacral pressure ulcer with underlying osteomyelitis in this patient who did have debridement of the wound done on 08/05/2023 and the patient did grow Pseudomonas aeruginosa and Cristina species patient has been treated with IV Zosyn and also received a course of Eraxis currently maintained on IV Zosyn as the patient inflammatory markers were trending down but now normalized patient mention she was seen in the wound care center yesterday and has been told that her wound was healing well patient apparently did have fever of 101.8 F at the residential last night for the patient was sent to the ER for further evaluation. On arrival to the ER the patient was afebrile and no fever have recorded subsequently patient was not tachycardic hypotensive or hypoxic patient did have white count of 10.7 no left shift white count is normal at 9.0 this morning creatinine was normal lactic acid was 1.2 liver exams are normal urine has been negative influenza RSV COVID testing was negative patient did have a chest x-ray no acute pulmonary process blood culture has been obtained infectious disease was consulted for further management. At the time my evaluation today patient denies any further fever or any chills patient denies having any headache or URI symptoms no chest pain shortness of breath or cough no nausea vomiting no abdominal pain no diarrhea and denies having any worsening pain to the sacral wound has no problem with the PICC line Review of Systems Positive point and negatives has been mentioned in the HPI, complete review of systems was performed and all other systems are negative Past Medical History Past Medical History: CVA/TIA, Dementia, Diabetes Mellitus, Hypertension, Osteoarthritis (OA) Additional Past Medical History / Comment(s): Pt states she is on an antibiotic for ear infection/throat infection at this time, TIA which affected speech, pt denies HTN but it is documented in past medical hx, diet controlled diabetes History of Any Multi-Drug Resistant Organisms: None Reported Past Surgical History: Orthopedic Surgery Additional Past Surgical History / Comment(s): I&D tooth abscess, left trigger finger surgery Past Anesthesia/Blood Transfusion Reactions: No Reported Reaction Past Psychological History: Anxiety, Bipolar, Depression Smoking Status: Never smoker Past Alcohol Use History: None Reported Past Drug Use History: None Reported - Past Family History Father Family Medical History: No Reported History Mother Family Medical History: No Reported History Medications and Allergies Home Medications Medication Instructions Recorded Confirmed Type 0.9 % Sodium Chloride [Sodium 10 ml IV Q6H 07/29/23 10/08/23 History Chloride Flush] Apixaban [Eliquis] 5 mg PO BID 07/29/23 10/08/23 History Ascorbic Acid [Vitamin C] 250 mg PO DAILY 07/29/23 10/08/23 History Benztropine Mesylate [Cogentin] 2 mg PO HS 07/29/23 10/08/23 History Cholecalciferol [Vitamin D3 (25 25 mcg PO DAILY 07/29/23 10/08/23 History Mcg = 1000 Iu)] Famotidine [Pepcid] 20 mg PO DAILY 07/29/23 10/08/23 History Ferrous Sulfate [Iron] 325 mg PO DAILY 07/29/23 10/08/23 History Lactulose 20 gm PO DAILY 07/29/23 10/08/23 History Magnesium Hydroxide [Milk of 2,400 mg PO Q72H PRN 07/29/23 10/08/23 History Magnesia] Multivitamins, Thera [Multivitamin 1 tab PO DAILY 07/29/23 10/08/23 History (formulary)] Sennosides/Docusate Sodium [Senna 1 tab PO BID 07/29/23 10/08/23 History Plus 8.6-50 mg Tablet] polyethylene glycoL 3350 [Miralax] 17 gm PO BID 07/29/23 10/08/23 History sitaGLIPtin [Januvia] 50 mg PO DAILY 07/29/23 10/08/23 History Acetaminophen Tab [Tylenol] 500 mg PO Q6HR PRN tab 08/09/23 10/08/23 Rx Metoprolol Tartrate [Lopressor] 25 mg PO TID #0 08/09/23 10/08/23 Rx haloperidoL [Haldol] 2.5 mg PO HS #3 tab 08/09/23 10/08/23 Rx Diclofenac Sodium Gel [Voltaren 1% 2 gm TOPICAL Q6H 08/15/23 10/08/23 History Gel] Brandan Packet 1 packet PO AC-BID 08/15/23 10/08/23 History Benzocaine/Menthol [Cepacol Sore 1 lozenge MM Q4H PRN 10/08/23 10/08/23 History Throat Lozenge] Healthshake 1 dose PO TID-W/MEALS 10/08/23 10/08/23 History INSULIN LISPRO (HumaLOG) [humaLOG] See Protocol SQ AC-TID 10/08/23 10/08/23 History Insulin Glargine,Hum.rec.anlog 10 units SQ DAILY 10/08/23 10/08/23 History [Lantus Solostar Pen] Prostat 30 ml PO BID 10/08/23 10/08/23 History Gabapentin [Neurontin] 100 mg PO BID #6 cap 10/11/23 Rx HYDROcodone/APAP 5-325MG [[place] 1 tab PO Q4HR PRN #18 tab 10/11/23 Rx 5-325] droNABinol [Marinol] 2.5 mg PO BID #6 cap 10/11/23 Rx Allergies Allergy/AdvReac Type Severity Reaction Status Date / Time metformin Allergy Unknown Verified 10/08/23 09:09 Sulfa (Sulfonamide Allergy Unknown Verified 10/08/23 09:09 Antibiotics) Physical Exam Vitals: Vital Signs Temp Pulse Pulse Resp BP BP Pulse Ox 10/08/23 07:57 97.4 F L 87 20 150/81 98 10/08/23 06:00 88 18 150/78 98 10/08/23 03:00 81 16 135/73 96 10/07/23 22:06 88 18 132/64 97 10/07/23 19:23 98.3 F 98 18 153/75 96 Intake and Output 10/07/23 10/08/23 10/08/23 22:59 06:59 14:59 Intake Total 240 Output Total 118 Balance 122 Intake: Oral 240 Output: Urine 118 Other: Voiding Method External Catheter Weight 73.028 kg GENERAL DESCRIPTION: Elderly female lying in bed, no distress. No tachypnea or a ccessory muscle of respiration use. HEENT: Shows Pallor , no scleral icterus. Oral mucous membrane is dry. No pharyngeal erythema or thrush NECK: Trachea central, no thyromegaly. LUNGS: Unlabored breathing. Clear to auscultation anteriorly. No wheeze or crackle. HEART: S1, S2, regular rate and rhythm. No loud murmur ABDOMEN: Soft, no tenderness , guarding or rigidity, no organomegaly EXTREMITIES: No edema of feet. SKIN: No rash, no masses palpable. Patient did have a stage IV sacral ulcer currently covered with a wound VAC NEUROLOGICAL: The patient is awake, alert, mood and affect normal. Results CBC & Chem 7: 10/09/23 03:04 10/10/23 05:51 Labs: Abnormal Lab Results - Last 24 Hours (Table) 10/07/23 10/07/23 10/08/23 Range/Units 20:00 20:00 11:51 WBC 10.7 H (3.8-10.6) k/uL RBC 3.24 L 3.22 L (3.80-5.40) m/uL Hgb 9.8 L 9.8 L (11.4-16.0) gm/dL Hct 30.5 L 30.3 L (34.0-46.0) % RDW 15.8 H 15.7 H (11.5-15.5) % Lymphocytes # 6.0 H (1.0-4.8) k/uL BUN 29 H (7-17) mg/dL Creatinine (0.52-1.04) mg/dL Glucose 123 H (74-99) mg/dL POC Glucose (mg/dL) (70-110) mg/dL Alkaline Phosphatase 143 H (38-126) U/L Total Protein 9.3 H (6.3-8.2) g/dL 10/08/23 10/08/23 Range/Units 11:51 13:58 WBC (3.8-10.6) k/uL RBC (3.80-5.40) m/uL Hgb (11.4-16.0) gm/dL Hct (34.0-46.0) % RDW (11.5-15.5) % Lymphocytes # (1.0-4.8) k/uL BUN 19 H (7-17) mg/dL Creatinine 0.42 L (0.52-1.04) mg/dL Glucose 122 H (74-99) mg/dL POC Glucose (mg/dL) 141 H (70-110) mg/dL Alkaline Phosphatase 151 H (38-126) U/L Total Protein 9.1 H (6.3-8.2) g/dL Assessment and Plan (1) Fever Current Visit: Yes Status: Acute Code(s): R50.9 - FEVER, UNSPECIFIED SNOMED Code(s): 682969995 (2) Sacral osteomyelitis Current Visit: Yes Status: Acute Code(s): M46.28 - OSTEOMYELITIS OF VERTEBRA, SACRAL AND SACROCOCCYGEAL REGION SNOMED Code(s): 114015801 (3) Stage IV pressure ulcer of sacral region Current Visit: Yes Status: Acute Code(s): L89.154 - PRESSURE ULCER OF SACRAL REGION, STAGE 4 SNOMED Code(s): 75323322281112 Plan: 1patient presented hospital with a fever at the local residential in this patient who did have a history of sacral osteomyelitis secondary to Pseudomonas aeruginosa for the patient has been on IV Zosyn for almost 8 weeks now, antibiotic were extended beyond 60 because of elevated inflammatory markers which were trending down and this patient was evaluated at the wound care center yesterday and has been told the wound was healing well patient did have a n egative UA chest x-ray reported negative abdomen was soft on clinical examination with question of possible PICC line infection 2-blood culture has been obtained results will be followed 3-patient has been started on vancomycin pharmacy to dose which is appropriate concerning for possible line infection I will add cefepime and oral Flagyl to cover for the sacral osteomyelitis pending the workup 4-we will check inflammatory markers We will follow on clinical condition and cultures to further adjust medication if needed Thank you for this consultation we will follow the patient along with you Dictation was produced using [employer] dictation software. please excuse any grammatical, word or spelling errors. Time with Patient: Greater than 30
[2023-10-08] MEDS: CEFEPIME 2 GM in SODIUM CHLORIDE 0.9% 100 ML IVPB SCH (23:03)
[2023-10-08] MEDS: metroNIDAZOLE 500 MG TAB PO SCH (23:04)
[2023-10-09] MEDS: VANCOMYCIN 1,250 MG in SODIUM CHLORIDE 0.9% 250 ML IVPB SCH ×2 (03:34→16:32)
[2023-10-09 03:53] LABS: Basophils % (A) 0 %; Eosinophils # (A) 0.2 k/uL (0-0.7); Eosinophils % (A) 3 %; HCT 27.3 % (34.0-46.0); HGB 8.8 gm/dL (11.4-16.0); Lymphocytes # (A) 3.3 k/uL (1.0-4.8); Lymphocytes % (A) 40 %; MCH 30.3 pg (25.0-35.0); MCHC 32.2 g/dL (31.0-37.0); MCV 94.1 fL (80.0-100.0); Mean Platelet Volume 8.2; Monocytes # (A) 0.4 k/uL (0-1.0); Monocytes % (A) 5 %; Neutrophils # (A) 4.2 k/uL (1.3-7.7); Neutrophils % (A) 51 %; Platelet Count 374 k/uL (150-450); RDW 15.7 % (11.5-15.5); WBC 8.3 k/uL (3.8-10.6)
[2023-10-09 04:06] LABS: Chloride 106 mmol/L (98-107); Glucose 79 mg/dL (74-99); Potassium 3.8 mmol/L (3.5-5.1); Sodium 137 mmol/L (137-145)
[2023-10-09 04:07] LABS: ALT 18 U/L (4-34); AST 24 U/L (14-36); African American GFR (CKD) >90 (>60 ml/min/1.73 sqM); Albumin 3.1 g/dL (3.5-5.0); Alkaline Phosphatase 125 U/L (38-126); Anion Gap 7 mmol/L; Blood Urea Nitrogen 15 mg/dL (7-17); C Reactive Protein 2.1 mg/dL (<1.0); Calcium 9.7 mg/dL (8.4-10.2); Carbon Dioxide 24 mmol/L (22-30); Non-African American GFR(CKD) >90 (>60 ml/min/1.73 sqM); Total Bilirubin 0.3 mg/dL (0.2-1.3); Total Protein 8.1 g/dL (6.3-8.2)
[2023-10-09 06:17] LABS: Glucose,Whole Blood 81 mg/dL (70-110)
[2023-10-09] MEDS: INSULIN ASPART (NovoLOG) 100 UNIT/ML VIAL SQ SCH ×3 (07:16→18:17)
[2023-10-09] MEDS: CEFEPIME 2 GM in SODIUM CHLORIDE 0.9% 100 ML IVPB SCH ×2 (09:57→19:01)
[2023-10-09] MEDS: LACTULOSE 20 GM/30 ML CUP PO SCH ×2 (09:58→10:25)
[2023-10-09] MEDS: polyethylene glycoL 3350 17 GM POWD.PACK PO SCH ×3 (09:58→21:02)
[2023-10-09] MEDS: APIXABAN 5 MG TAB PO SCH ×2 (10:03→21:00)
[2023-10-09] MEDS: ASCORBIC ACID 500 MG TAB PO SCH (10:04)
[2023-10-09] MEDS: GABAPENTIN 100 MG CAP PO SCH ×2 (10:04→21:00)
[2023-10-09] MEDS: MULTIVITAMINS, THERA 1 EACH TAB PO SCH (10:05)
[2023-10-09] MEDS: METOPROLOL TARTRATE 25 MG TAB PO SCH ×3 (10:05→21:00)
[2023-10-09] MEDS: SENNOSIDES-DOCUSATE SODIUM 1 EACH TAB PO SCH ×2 (10:05→21:00)
[2023-10-09] MEDS: FAMOTIDINE 20 MG TAB PO SCH (10:06)
[2023-10-09] MEDS: metroNIDAZOLE 500 MG TAB PO SCH ×3 (10:06→21:00)
[2023-10-09] MEDS: DICLOFENAC SODIUM GEL 100 GM TUBE TOPICAL SCH ×3 (10:24→19:01)
[2023-10-09] MEDS: droNABinol 2.5 MG CAP PO SCH ×2 (10:36→21:00)
[2023-10-09 10:50] LABS: Glucose,Whole Blood 107 mg/dL (70-110)
--- NOTE | 2023-10-09 11:22 | P.CON ---
Consult Note - . Consult date: 10/09/23 Assessment/Plan:: Wound care consultation: Date of consultation: 10/09/2023 Reason for consultation: Sacral decubitus with wound VAC in place. History of chief complaint: This 77-year-old woman is a resident of [facility]. She is being treated with a wound VAC. Examination: We find an elderly woman lying quietly in no distress. She has a 3 cm presacral ulceration which is fairly clean. A wound VAC was in place but the celiac been somewhat broken. I would recommend continuation of the wound VAC. I have written orders for of the wound VAC settings. I would also recommend keeping her off of the backside but did take specific cushioning and positioning precautions to keep her from developing an ulceration on either great trochanter. I appreciate 82 assist in this lady's care. If there are further questions please let us know.
[2023-10-09 11:43] LABS: Erythrocyte Sedimentation Rate 77 mm/Hr (0-30)
[2023-10-09 12:15] VITALS: BMI 29.4
[2023-10-09] MEDS: INSULIN DETEMIR (LEVEMIR) 100 UNIT/ML SYR SQ SCH (12:30)
--- NOTE | 2023-10-09 12:35 | P.PN ---
Progress Note - Text Progress Note Date: 10/09/23 Chief Complaint: Fever This is a 77-year-old patient, at rehab at [facility]. Being followed by Dr. Mijares. Chronic stable medical conditions includes dementia, diabetes, hypertension, osteoarthritis, bipolar. June [address] [facility] where patient was found to have discitis in the lumbar area. - surgery for the same and rods in the spine. - come back to rehab. change in mental status patient is sent back to [facility] again. Patient had been septic. Started on IV Zosyn. started off with bedsores that has progressively gotten worse. Local wound care has continued. As a sacral decubiti this became larger patient sent back to the ER on July 292022. As per the granddaughter they'll prefer to have treatment done here and not [place] if that can be avoided. Patient subsequently went wound debridement. Patient and family declined colostomy. Patient is discharged with PICC line and IV Zosyn,eraxis. Patient at [facility]. Reported a fever of 100.8. And the POA requested the patient to be larger at [facility]. Patient is able to answer simple questions has underlying cognitive impairment. Hungry. Wound VAC in place. Both surgical team and ID consulted. Patient does complain of pain at the sacral decubitus site. 10/09/2023: Patient is seen by wound care team Dr. mccallum. Wound VAC to continue. I spoke to patient's son Kai over the phone. Because of cultures pending and further evaluation patient has been made inpatient. Patient is picky about her diet. Told the nurse to have the family, come in during mealtimes to encourage oral intake. Past medical history to include: Dementia, diabetes, hypertension, osteoarthritis,, bipolar, discitis-lumbar, sacral decub is ulcer Social history: No smoking or alcohol history. Currently at rehab at [facility]. Patient's son Ar Ramírez is the POA. Physical examination: VITAL SIGNS: 97.8, 79, 16, 1 52 x 75, 96% room air GENERAL: Reclining in bed, comfortable EYES: Pupils equal. Conjunctiva normal. HEENT: External appearance of nose and ears normal, oral cavity grossly normal. NECK: JVD not raised; masses not palpable. HEART: First and second heart sounds are normal; no edema. LUNGS: Respiratory rate normal; clear to auscultation. ABDOMEN: Soft, nontender, liver spleen not palpable, no masses palpable. [place] PSYCH: [Able to answer simple questions. Patient stating I do not want colostomy DERMATOLOGICAL: Sacral decubitus ulcer with: Wound VAC MUSCULOSKELETAL:No Clubbing/cyanosis;muscles-grossly intact, OA INVESTIGATIONS, reviewed in the clinical context: 10/09/2023: White count 8.3 and globin 8.8 platelets 334 potassium 3.8 creatinine 0.58 10/08/2023: White count 9 hemoglobin 9.8 platelets 392 potassium 4.3 BUN 19 creatinine 0.42 EKG tracing personally reviewed by me- Chest x-ray film personally reviewed by me-no obvious infiltrate Assessment and plan: -Stage IV large sacral decubitus ulcer. Wound culture positive for Pseudomonas on last admission. Patient presents with a temperature 100.8.-Rule out acute exacerbation Consulted: ID Dr. Cotto. Surgery Dr. Atwood. Wound care team. IV Unasyn, As per patient wishes and the son no diverting colostomy-on last admission. Debridement care of by Dr. Nguyen on August 05. Wound VAC in place -Normocytic anemia of chronic disease: Follow H&H -Chronic medical debility. -Chronic constipation MiraLAX, senna plus, lactulose -Diabetes mellitus type 2 Januvia. Lantus Follow Accu-Cheks with sliding scale -Essential hypertension Lopressor 25 mg twice a day -June 2023: of lumbar discitis. Patient had surgery for the same. received antibiotics. -Cognitive impairment -Full code. Spoke to the son Ar . He says he talked to family-patient to remain full code. -DPOA, Ar Ramírez. Son Pending cultures. Continue with ID and wound care team. Wound VAC in place. Past Medical History Past Medical History: CVA/TIA, Dementia, Diabetes Mellitus, Hypertension, Osteoarthritis (OA) Additional Past Medical History / Comment(s): Pt states she is on an antibiotic for ear infection/throat infection at this time, TIA which affected speech, pt denies HTN but it is documented in past medical hx, diet controlled diabetes History of Any Multi-Drug Resistant Organisms: None Reported Past Surgical History: Orthopedic Surgery Additional Past Surgical History / Comment(s): I&D tooth abscess, left trigger finger surgery Past Anesthesia/Blood Transfusion Reactions: No Reported Reaction Past Psychological History: Anxiety, Bipolar, Depression Smoking Status: Never smoker Past Alcohol Use History: None Reported Past Drug Use History: None Reported
--- NOTE | 2023-10-09 13:09 | P.PN ---
Subjective Progress Note Date: 10/09/23 CHIEF COMPLAINT: Fever HISTORY OF PRESENT ILLNESS: Patient resting comfortably. Has wound VAC in place. History of sacrococcygeal decubitus ulcer No fevers reported. White count 8.3 hemoglobin 8.8. Patient seen by wound care service and infectious disease. She is on antibiotics. PHYSICAL EXAM: VITAL SIGNS: Reviewed GENERAL: Well-developed in no acute distress. HEENT: No sclera icterus. Extraocular movements grossly intact. Moist buccal mucosa. Head is atraumatic, normocephalic. Hears conversational speech. No nasal drainage. NECK: Supple without lymphadenopathy. CHEST: Non-labored respirations and equal bilateral excursions. CARDIOVASCULAR: Palpable 2+ radial pulses. ABDOMEN: Soft. Nondistended. Nontender. MUSCULOSKELETAL: No clubbing or cyanosis. NEUROLOGIC: No focal or lateralizing signs. Cranial nerves II through XII grossly intact. SKIN: Well perfused. Good skin turgor. ASSESSMENT: 1. Sacrococcygeal decubitus ulcer status post debridement on 08/05/2023 2. Fever 3. Dementia 4. DVT history 5. Diabetes type 2 insulin-dependent 6. History of TIA 7. Hypertensive heart disease 8. Generalized anxiety disorder 9. Depression 10. History of iron deficiency anemia PLAN: -Continue wound VAC -Continue antibiotics per infectious disease -Continue offloading -Continue supportive care -No surgical intervention planned at this time Physician Benzene Washer Operator note has been reviewed by physician. Signing provider agrees with the documented findings, assessment, and plan of care. Objective - Vital Signs Vital signs: Vital Signs Temp 97.8 F 10/09/23 07:00 Pulse 79 10/09/23 07:00 Resp 16 10/09/23 07:00 BP 152/75 10/09/23 07:00 Pulse Ox 96 10/09/23 07:00 FiO2 Intake & Output 10/08/23 10/09/23 10/09/23 18:59 06:59 18:59 Intake Total 358 775 Output Total 916 1050 Balance -560 -275 Weight 73.028 kg Intake: Intake, IV Titration 625 Amount Sodium Chloride 0.9% 1, 375 000 ml @ 75 mls/hr IV . [id number] [facility] Rx#:[id number] Vancomycin 1,250 mg In 250 Sodium Chloride 0.9% 250 ml @ 125 mls/hr IVPB Q12H [facility] Rx#:[id number] Oral 358 150 Output: Urine 918 1050 Other: Voiding Method External Catheter External Catheter - Labs CBC & Chem 7: 10/09/23 03:04 10/09/23 03:04 Labs: Abnormal Lab Results - Last 24 Hours (Table) 10/08/23 10/08/23 10/08/23 Range/Units 11:51 11:51 13:58 RBC 3.22 L (3.80-5.40) m/uL Hgb 9.8 L (11.4-16.0) gm/dL Hct 30.3 L (34.0-46.0) % RDW 15.7 H (11.5-15.5) % BUN 19 H (7-17) mg/dL Creatinine 0.42 L (0.52-1.04) mg/dL Glucose 122 H (74-99) mg/dL POC Glucose (mg/dL) 141 H (70-110) mg/dL Alkaline Phosphatase 151 H (38-126) U/L C-Reactive Protein (<1.0) mg/dL Total Protein 9.1 H (6.3-8.2) g/dL Albumin (3.5-5.0) g/dL 10/08/23 10/09/23 10/09/23 Range/Units 16:56 03:04 03:04 RBC 2.90 L (3.80-5.40) m/uL Hgb 8.8 L (11.4-16.0) gm/dL Hct 27.3 L (34.0-46.0) % RDW 15.7 H (11.5-15.5) % BUN (7-17) mg/dL Creatinine (0.52-1.04) mg/dL Glucose (74-99) mg/dL POC Glucose (mg/dL) 141 H (70-110) mg/dL Alkaline Phosphatase (38-126) U/L C-Reactive Protein 2.1 H (<1.0) mg/dL Total Protein (6.3-8.2) g/dL Albumin 3.1 L (3.5-5.0) g/dL Microbiology - Last 24 Hours (Table) 10/07/23 20:00 Blood Culture - Preliminary Blood 10/07/23 19:50 Blood Culture - Preliminary Blood
[2023-10-09] MEDS ORDERED: VANCOMYCIN TROUGH DUE 1 EACH MISC MISCELLANE ONE (14:00)
[2023-10-09] MEDS: LINAGLIPTIN 5 MG TABLET PO SCH (14:03)
[2023-10-09] MEDS: SODIUM CHLORIDE 0.9% 1,000 ML IV SCH ×2 (16:32→18:14)
[2023-10-09 16:45] LABS: Glucose,Whole Blood 110 mg/dL (70-110)
[2023-10-09] MEDS ORDERED: ASPIRIN 325 MG TAB PO STA (18:08)
[2023-10-09] MEDS: haloperidoL 5 MG TAB PO SCH (21:00)
[2023-10-09] MEDS: BENZTROPINE MESYLATE 1 MG TAB PO SCH (21:01)
--- NOTE | 2023-10-10 01:12 | CT ---
EXAM: CT Head Without Intravenous Contrast CLINICAL HISTORY: ITS.REASON CT Reason: altered mental status TECHNIQUE: Axial computed tomography images of the head/brain without intravenous contrast. CTDI is 49.2 mGy and DLP is 1138.4 mGy-cm. This CT exam was performed using one or more of the following dose reduction techniques: automated exposure control, adjustment of the mA and/or kV according to patient size, and/or use of iterative reconstruction technique. COMPARISON: No relevant prior studies available. FINDINGS: Brain: No hemorrhage or mass effect. Ventricles: No hydrocephalus. Bones/joints: Unremarkable. Soft tissues: Unremarkable. Sinuses: No air fluid level. Mastoid air cells: Clear. IMPRESSION: No acute hemorrhage, hydrocephalus, or mass effect.
[2023-10-10] MEDS: CEFEPIME 2 GM in SODIUM CHLORIDE 0.9% 100 ML IVPB SCH ×3 (01:13→16:25)
[2023-10-10] MEDS: DICLOFENAC SODIUM GEL 100 GM TUBE TOPICAL SCH ×4 (01:15→16:34)
[2023-10-10] MEDS: VANCOMYCIN 1,250 MG in SODIUM CHLORIDE 0.9% 250 ML IVPB SCH ×2 (02:59→14:19)
[2023-10-10] MEDS: SODIUM CHLORIDE 0.9% 1,000 ML IV SCH ×2 (06:04→14:20)
[2023-10-10 06:10] LABS: Glucose,Whole Blood 155 mg/dL (70-110)
[2023-10-10] MEDS: INSULIN ASPART (NovoLOG) 100 UNIT/ML VIAL SQ SCH ×3 (06:32→17:27)
[2023-10-10 06:58] LABS: African American GFR (CKD) >90 (>60 ml/min/1.73 sqM); Non-African American GFR(CKD) >90 (>60 ml/min/1.73 sqM)
[2023-10-10] MEDS: ASCORBIC ACID 500 MG TAB PO SCH (08:32)
[2023-10-10] MEDS: metroNIDAZOLE 500 MG TAB PO SCH ×2 (08:32→16:25)
[2023-10-10] MEDS: FAMOTIDINE 20 MG TAB PO SCH (08:32)
[2023-10-10] MEDS: APIXABAN 5 MG TAB PO SCH ×2 (08:32→21:20)
[2023-10-10] MEDS: METOPROLOL TARTRATE 25 MG TAB PO SCH ×3 (08:32→21:20)
[2023-10-10] MEDS: MULTIVITAMINS, THERA 1 EACH TAB PO SCH (08:32)
[2023-10-10] MEDS: SENNOSIDES-DOCUSATE SODIUM 1 EACH TAB PO SCH ×2 (08:32→21:20)
[2023-10-10] MEDS: LACTULOSE 20 GM/30 ML CUP PO SCH (08:32)
[2023-10-10] MEDS: GABAPENTIN 100 MG CAP PO SCH ×2 (08:32→21:20)
[2023-10-10] MEDS: LINAGLIPTIN 5 MG TABLET PO SCH (08:33)
[2023-10-10] MEDS: polyethylene glycoL 3350 17 GM POWD.PACK PO SCH ×2 (08:33→21:20)
[2023-10-10] MEDS: droNABinol 2.5 MG CAP PO SCH ×2 (08:33→21:20)
[2023-10-10] MEDS: INSULIN DETEMIR (LEVEMIR) 100 UNIT/ML SYR SQ SCH (08:33)
--- NOTE | 2023-10-10 10:46 | P.PN ---
Subjective Progress Note Date: 10/10/23 CHIEF COMPLAINT: Fever HISTORY OF PRESENT ILLNESS: Patient is lying in bed comfortably. She has wound VAC in place. She was seen by wound care service the recommending to the continuation of the wound VAC. She's also been seen by infectious disease. Currently on IV antibiotics. Has wound VAC in place. History of sacrococcygeal decubitus ulcer. No further fevers reported. PHYSICAL EXAM: VITAL SIGNS: Reviewed GENERAL: Well-developed in no acute distress. HEENT: No sclera icterus. Extraocular movements grossly intact. Moist buccal mucosa. Head is atraumatic, normocephalic. Hears conversational speech. No nasal drainage. NECK: Supple without lymphadenopathy. CHEST: Non-labored respirations and equal bilateral excursions. CARDIOVASCULAR: Palpable 2+ radial pulses. ABDOMEN: Soft. Nondistended. Nontender. MUSCULOSKELETAL: No clubbing or cyanosis. NEUROLOGIC: No focal or lateralizing signs. Cranial nerves II through XII grossly intact. SKIN: Well perfused. Good skin turgor. ASSESSMENT: 1. Sacrococcygeal decubitus ulcer status post debridement on 08/05/2023 2. Fever 3. Dementia 4. DVT history 5. Diabetes type 2 insulin-dependent 6. History of TIA 7. Hypertensive heart disease 8. Generalized anxiety disorder 9. Depression 10. History of iron deficiency anemia PLAN: -Continue wound VAC -Continue antibiotics per infectious disease -Continue offloading -Continue supportive care -No surgical intervention planned at this time -Surgical service will sign off. Please call with any questions or concerns. Physician Electro Tech note has been reviewed by physician. Signing provider agrees with the documented findings, assessment, and plan of care. Objective - Vital Signs Vital signs: Vital Signs Temp 98.9 F 10/10/23 07:00 Pulse 84 10/10/23 07:00 Resp 18 10/10/23 07:00 BP 152/74 10/10/23 07:00 Pulse Ox 100 10/10/23 07:00 FiO2 Intake & Output 10/09/23 10/10/23 10/10/23 18:59 06:59 18:59 Output Total 1000 300 Balance -1000 -300 Weight 73.028 kg Output: Urine 1000 300 Other: Voiding Method External Catheter External Catheter # Voids 5 - Labs CBC & Chem 7: 10/09/23 03:04 10/10/23 05:51 Labs: Abnormal Lab Results - Last 24 Hours (Table) 10/09/23 10/10/23 Range/Units 03:04 05:54 ESR 77 H (0-30) mm/Hr POC Glucose (mg/dL) 155 H (70-110) mg/dL Microbiology - Last 24 Hours (Table) 10/07/23 20:00 Blood Culture - Preliminary Blood 10/07/23 19:50 Blood Culture - Preliminary Blood
[2023-10-10 11:17] LABS: Glucose,Whole Blood 168 mg/dL (70-110)
--- NOTE | 2023-10-10 15:10 | P.PN ---
Subjective Progress Note Date: 10/09/23 Principal diagnosis: Reason for follow-up is fever Patient is a 77-year-old -Spanish female with a past medical history significant for infected sacral pressure ulcer with underlying osteomyelitis in this patient who did have debridement of the wound done on 08/05/2023 and the patient did grow Pseudomonas aeruginosa and Cristina species patient has been treated with IV Zosyn and also received a course of Eraxis, patient was sent to the ER for evaluation of a fever at the long-term. On today's evaluation that is 10/09/2023 patient did have a low-grade fever of 99 point 12:07 however the patient is afebrile since then, patient is breathing comfortably on room air no chest pain shortness of the cough no abdominal pain no diarrhea has been reported. Patient did have a white count of 8.3, creatinine 0.58 blood cultures so far pending Objective - Vital Signs Vital signs: Vital Signs Temp 97.8 F 10/09/23 07:00 Pulse 79 10/09/23 07:00 Resp 16 10/09/23 07:00 BP 152/75 10/09/23 07:00 Pulse Ox 96 10/09/23 07:00 FiO2 Intake & Output 10/08/23 10/09/23 10/09/23 18:59 06:59 18:59 Intake Total 358 775 Output Total 918 1050 Balance -560 -275 Weight 73.028 kg 73.028 kg Intake: Intake, IV Titration 625 Amount Sodium Chloride 0.9% 1, 375 000 ml @ 75 mls/hr IV . [id number] [facility] Rx#:[id number] Vancomycin 1,250 mg In 250 Sodium Chloride 0.9% 250 ml @ 125 mls/hr IVPB Q12H [facility] Rx#:[id number] Oral 358 150 Output: Urine 918 1050 Other: Voiding Method External Catheter External Catheter External Catheter - Exam GENERAL DESCRIPTION: An elderly female lying in bed in no distress RESPIRATORY SYSTEM: Unlabored breathing , decreased breath sounds at bases HEART: S1 S2 regular rate and rhythm , ABDOMEN: Soft , no tenderness EXTREMITIES: No edema feet Patient did have a stage IV sacral pressure ulcer however the wound bed looks clean wound has decreased in size no surrounding redness or foul-smelling drainage - Labs CBC & Chem 7: 10/09/23 03:04 10/10/23 05:51 Labs: Abnormal Lab Results - Last 24 Hours (Table) 10/08/23 10/08/23 10/08/23 Range/Units 11:51 13:58 16:56 RBC (3.80-5.40) m/uL Hgb (11.4-16.0) gm/dL Hct (34.0-46.0) % RDW (11.5-15.5) % ESR (0-30) mm/Hr BUN 19 H (7-17) mg/dL Creatinine 0.42 L (0.52-1.04) mg/dL Glucose 122 H (74-99) mg/dL POC Glucose (mg/dL) 141 H 141 H (70-110) mg/dL Alkaline Phosphatase 151 H (38-126) U/L C-Reactive Protein (<1.0) mg/dL Total Protein 9.1 H (6.3-8.2) g/dL Albumin (3.5-5.0) g/dL 10/09/23 10/09/23 Range/Units 03:04 03:04 RBC 2.90 L (3.80-5.40) m/uL Hgb 8.8 L (11.4-16.0) gm/dL Hct 27.3 L (34.0-46.0) % RDW 15.7 H (11.5-15.5) % ESR 77 H (0-30) mm/Hr BUN (7-17) mg/dL Creatinine (0.52-1.04) mg/dL Glucose (74-99) mg/dL POC Glucose (mg/dL) (70-110) mg/dL Alkaline Phosphatase (38-126) U/L C-Reactive Protein 2.1 H (<1.0) mg/dL Total Protein (6.3-8.2) g/dL Albumin 3.1 L (3.5-5.0) g/dL Microbiology - Last 24 Hours (Table) 10/07/23 20:00 Blood Culture - Preliminary Blood 10/07/23 19:50 Blood Culture - Preliminary Blood Assessment and Plan (1) Sacral osteomyelitis Current Visit: Yes Status: Acute Code(s): M46.28 - OSTEOMYELITIS OF VERTEBRA, SACRAL AND SACROCOCCYGEAL REGION SNOMED Code(s): 673119546 (2) Stage IV pressure ulcer of sacral region Current Visit: Yes Status: Acute Code(s): L89.154 - PRESSURE ULCER OF SACRAL REGION, STAGE 4 SNOMED Code(s): 68205165901600 (3) Fever Current Visit: Yes Status: Acute Code(s): R50.9 - FEVER, UNSPECIFIED SNOMED Code(s): 946546744 Plan: 1patient presented hospital with a fever at the local long-term in this patient who did have a history of sacral osteomyelitis secondary to Pseudomonas aeruginosa for the patient has been on IV Zosyn for almost 8 weeks now, antibiotic were extended beyond 6 weeks because of elevated inflammatory markers which were trending down and this patient was evaluated at the wound care center yesterday and has been told the wound was healing well patient did have a negative UA chest x-ray reported negative abdomen was soft on clinical examination with question of possible PICC line infection 2-blood culture has been obtained and are currently pending 3-patient to continue vancomycin pharmacy to dose which is appropriate concerning for possible line infection along with cefepime and oral Flagyl to cover for the sacral osteomyelitis, however the patient sacral wound has shown significant improvement and there is no evidence of any cellulitis or infection clinically as the patient has received almost 8 weeks of antibiotic therapy we will be recommending no antibiotic on discharge for the sacral wound this has been discussed with the daughter at the bedside as well as with the son Ar on the phone Dictation was produced using [email or web address] dictation software. please excuse any grammatical, word or spelling errors. Time with Patient: Less than 30
--- NOTE | 2023-10-10 15:13 | P.PN ---
Subjective Progress Note Date: 10/10/23 Principal diagnosis: Reason for follow-up is fever Patient is a 77-year-old -[place] female with a past medical history significant for infected sacral pressure ulcer with underlying osteomyelitis in this patient who did have debridement of the wound done on 08/05/2023 and the patient did grow Pseudomonas aeruginosa and Cristina species patient has been treated with IV Zosyn and also received a course of Eraxis, patient was sent to the ER for evaluation of a fever at the detention. On today's evaluation that is 10/10/2023 patient is afebrile today, patient is breathing comfortably on room air with no need for supplemental oxygen, patient denies chest pain shortness of the cough no abdominal pain no diarrhea has been reported. Patient did have a white count of 8.3, creatinine 0.58 blood cultures so far pending Objective - Vital Signs Vital signs: Vital Signs Temp 98.9 F 10/10/23 07:00 Pulse 84 10/10/23 07:00 Resp 18 10/10/23 07:00 BP 152/74 10/10/23 07:00 Pulse Ox 100 10/10/23 07:00 FiO2 Intake & Output 10/09/23 10/10/23 10/10/23 18:59 06:59 18:59 Intake Total 950 Output Total 1000 300 Balance -1000 -300 950 Weight 73.028 kg 73.028 kg Intake: Intake, IV Titration 950 Amount Cefepime 2 gm In Sodium 100 Chloride 0.9% 100 ml @ 25 mls/hr IVPB Q8HR [facility] Rx# :[id number] Sodium Chloride 0.9% 1, 600 000 ml @ 75 mls/hr IV . [id number] [facility] Rx#:[id number] Vancomycin 1,250 mg In 250 Sodium Chloride 0.9% 250 ml @ 125 mls/hr IVPB Q12H [facility] Rx#:[id number] Output: Urine 1000 300 Other: Voiding Method External Catheter External Catheter External Catheter # Voids 5 - Exam GENERAL DESCRIPTION: An elderly female lying in bed in no distress RESPIRATORY SYSTEM: Unlabored breathing , decreased breath sounds at bases HEART: S1 S2 regular rate and rhythm , ABDOMEN: Soft , no tenderness EXTREMITIES: No edema feet Patient sacral wound is current with a wound VAC - Labs CBC & Chem 7: 10/09/23 03:04 10/10/23 05:51 Labs: Abnormal Lab Results - Last 24 Hours (Table) 10/10/23 10/10/23 Range/Units 05:54 11:16 POC Glucose (mg/dL) 155 H 168 H (70-110) mg/dL Microbiology - Last 24 Hours (Table) 10/07/23 20:00 Blood Culture - Preliminary Blood 10/07/23 19:50 Blood Culture - Preliminary Blood Assessment and Plan (1) Sacral osteomyelitis Current Visit: Yes Status: Acute Code(s): M46.28 - OSTEOMYELITIS OF VERTEBRA, SACRAL AND SACROCOCCYGEAL REGION SNOMED Code(s): 555177193 (2) Stage IV pressure ulcer of sacral region Current Visit: Yes Status: Acute Code(s): L89.154 - PRESSURE ULCER OF SACRAL REGION, STAGE 4 SNOMED Code(s): 52033591373165 (3) Fever Current Visit: Yes Status: Acute Code(s): R50.9 - FEVER, UNSPECIFIED SNOMED Code(s): 690537900 Plan: 1patient presented hospital with a fever at the local detention in this patient who did have a history of sacral osteomyelitis secondary to Pseudomonas aeruginosa for the patient has been on IV Zosyn for almost 8 weeks now, antibiotic were extended beyond 6 weeks because of elevated inflammatory markers which were trending down and this patient was evaluated at the wound care center yesterday and has been told the wound was healing well patient did have a negative UA chest x-ray reported negative abdomen was soft on clinical examination with question of possible PICC line infection 2-blood culture has been obtained and are currently pending 3-patient to continue vancomycin pharmacy to dose, along with cefepime and oral Flagyl to cover for the sacral osteomyelitis, keeping in mind blood culture has been negative so far we will obtain Doppler ultrasound of the right upper extrem ity make sure no evidence of any DVT and monitor clinical course closely Dictation was produced using [employer] dictation software. please excuse any grammatical, word or spelling errors. Time with Patient: Less than 30
--- NOTE | 2023-10-10 16:14 | US ---
EXAMINATION TYPE: US venous doppler duplex UE RT DATE OF EXAM: 10/10/2023 COMPARISON: NONE CLINICAL INDICATION: Female, 77 years old with history of Fever questionably DVT at the PICC site; Qu estion DVT at PICC line site SIDE PERFORMED: right Right Arm: Positive for DVT Head Start Coordinator notes: Small area of thrombus at the distal axillary vein along the PICC line with partia l compressibility IMPRESSION: Exam positive for small thrombus in the lower axillary vein along the right PICC line.
[2023-10-10 16:47] LABS: Glucose,Whole Blood 211 mg/dL (70-110)
--- NOTE | 2023-10-10 17:21 | P.PN ---
Progress Note - Text Progress Note Date: 10/10/23 Chief Complaint: Fever This is a 77-year-old patient, at rehab at [facility]. Being followed by Dr. Mijares. Chronic stable medical conditions includes dementia, diabetes, hypertension, osteoarthritis, bipolar. June 2023 patient was sent to [facility] where patient was found to have discitis in the lumbar area. - surgery for the same and rods in the spine. - come back to rehab. change in mental status patient is sent back to [facility] again. Patient had been septic. Started on IV Zosyn. started off with bedsores that has progressively gotten worse. Local wound care has continued. As a sacral decubiti this became larger patient sent back to the ER on July 292022. As per the granddaughter they'll prefer to have treatment done here and not [place] if that can be avoided. Patient subsequently went wound debridement. Patient and family declined colostomy. Patient is discharged with PICC line and IV Zosyn,eraxis. Patient at [facility]. Reported a fever of 100.8. And the POA requested the patient to be larger at [facility]. Patient is able to answer simple questions has underlying cognitive impairment. Hungry. Wound VAC in place. Both surgical team and ID consulted. Patient does complain of pain at the sacral decubitus site. 10/09/2023: Patient is seen by wound care team Dr. mccallum. Wound VAC to continue. I spoke to patient's son Kai over the phone. Because of cultures pending and further evaluation patient has been made inpatient. Patient is picky about her diet. Told the nurse to have the family, come in during mealtimes to encourage oral intake. 10/10/2023: Late yesterday of this consult with the family about mental status changes. Computed tomography scan of the brain without contrast was negative for any stroke. Patient's other picky about food. On antibiotics. Discussed with Dr. Griffith from ID.. Wound appears to be healing well. Antiemetics can be discontinued. PICC line to be discontinued. With a small thrombus reported in the lower extremity. Along the right PICC line. We'll consult vascular for that. In regards to anticoagulation. Active Medications Acetaminophen (Acetaminophen Tab 325 Mg Tab) 650 mg PO Q6HR PRN PRN Reason: Mild Pain or Fever > 100.5 Acetaminophen (Acetaminophen Tab 500 Mg Tab) 500 mg PO Q6HR PRN PRN Reason: Fever and/ or Pain Hydrocodone Bitart/Acetaminophen (Hydrocodone/Apap 5-325mg 1 Each Tab) 1 each PO Q4HR PRN PRN Reason: Pain Last Admin: 10/08/23 19:00 Dose: 1 each Apixaban (Apixaban 5 Mg Tab) 5 mg PO BID [facility]; Protocol Last Admin: 10/10/23 08:32 Dose: 5 mg Ascorbic Acid (Ascorbic Acid 500 Mg Tab) 250 mg PO DAILY [facility] Last Admin: 10/10/23 08:32 Dose: 250 mg Benztropine Mesylate (Benztropine Mesylate 1 Mg Tab) 2 mg PO HS [facility] Last Admin: 10/09/23 21:01 Dose: 2 mg Dextrose/Water (Dextrose 50% Syringe 50 Ml) 25 ml IVP PER PROTOCOL PRN; Protocol PRN Reason: Hypoglycemia Dextrose/Water (Dextrose 50% Syringe 50 Ml) 50 ml IVP PER PROTOCOL PRN; Protoc ol PRN Reason: Hypoglycemia Diclofenac Sodium (Diclofenac Sodium Gel 100 Gm Tube) 2 gm TOPICAL Q6HR [facility]; Protocol Last Admin: 10/10/23 16:34 Dose: 2 gm Dronabinol (Dronabinol 2.5 Mg Cap) 2.5 mg PO BID [facility] Last Admin: 10/10/23 08:33 Dose: 2.5 mg Famotidine (Famotidine 20 Mg Tab) 20 mg PO DAILY [facility] Last Admin: 10/10/23 08:32 Dose: 20 mg Gabapentin (Gabapentin 100 Mg Cap) 100 mg PO BID [facility] Last Admin: 10/10/23 08:32 Dose: 100 mg Haloperidol (Haloperidol 5 Mg Tab) 2.5 mg PO HS [facility] Last Admin: 10/09/23 21:00 Dose: 2.5 mg Sodium Chloride (Saline 0.9%) 1,000 mls @ 75 mls/hr IV .[id number] [facility] Last Admin: 10/10/23 14:20 Dose: 75 mls/hr Vancomycin HCl 1,250 mg/ (Sodium Chloride) 250 mls @ 125 mls/hr IVPB Q12H [facility] Last Admin: 10/10/23 14:19 Dose: 125 mls/hr Cefepime HCl 2 gm/ Sodium (Chloride) 100 mls @ 25 mls/hr IVPB Q8HR [facility]; Protocol Last Admin: 10/10/23 16:25 Dose: 25 mls/hr Insulin Aspart (Insulin Aspart (Novolog) 100 Unit/Ml Vial) 0 unit SQ AC-TID [facility] ; Protocol Last Admin: 10/10/23 11:43 Dose: 1 unit Insulin Detemir (Insulin Detemir (Levemir) 100 Unit/Ml Syr) 10 unit SQ DAILY [facility] Last Admin: 10/10/23 08:33 Dose: 10 unit Lactulose (Lactulose 20 Gm/30 Ml Cup) 20 gm PO DAILY [facility] Last Admin: 10/10/23 08:32 Dose: Not Given Linagliptin (Linagliptin 5 Mg Tablet) 5 mg PO DAILY [facility] Last Admin: 10/10/23 08:33 Dose: 5 mg Metoprolol Tartrate (Metoprolol Tartrate 25 Mg Tab) 25 mg PO TID [facility] Last Admin: 10/10/23 16:25 Dose: 25 mg Metronidazole (Metronidazole 500 Mg Tab) 500 mg PO TID [facility]; Protocol Last Admin: 10/10/23 16:25 Dose: 500 mg Miscellaneous Information (Vancomycin Trough Due 1 Each Misc) 0 each MISCELLANE DIRECTED ONE Stop: 10/11/23 14:01 Multivitamins (Multivitamins, Thera 1 Each Tab) 1 each PO DAILY [facility] Last Admin: 10/10/23 08:32 Dose: 1 each Naloxone HCl (Naloxone 0.4 Mg/Ml 1 Ml Vial) 0.2 mg IV Q2M PRN PRN Reason: Opioid Reversal Polyethylene Glycol (Polyethylene Glycol 3350 17 Gm Powd.Pack) 17 gm PO BID [facility] Last Admin: 10/10/23 08:33 Dose: 17 gm Senna/Docusate Sodium (Sennosides-Docusate Sodium 1 Each Tab) 1 each PO BID [facility] Last Admin: 10/10/23 08:32 Dose: 1 each Past medical history to include: Dementia, diabetes, hypertension, osteoarthritis,, bipolar, discitis-lumbar, sacral decub is ulcer Social history: No smoking or alcohol history. Currently at rehab at [facility]. Patient's son Ar Ramírez is the POA. Physical examination: VITAL SIGNS: At 8.7, 80, 18, 125/71, 96% room air GENERAL: In bed, comfortable EYES: Pupils equal. Conjunctiva normal. HEENT: External appearance of nose and ears normal, oral cavity grossly normal. NECK: JVD not raised; masses not palpable. HEART: First and second heart sounds are normal; no edema. LUNGS: Respiratory rate normal; clear to auscultation. ABDOMEN: Soft, nontender, liver spleen not palpable, no masses palpable. [place] PSYCH: [Able to answer simple questions. Patient stating I do not want co lostomy DERMATOLOGICAL: Sacral decubitus ulcer with: Wound VAC MUSCULOSKELETAL:No Clubbing/cyanosis;muscles-grossly intact, OA INVESTIGATIONS, reviewed in the clinical context: Venous Doppler duplex right upper extremity: Small thrombus in the lower axillary vein along the right PICC line. 10/09/2023: White count 8.3 and globin 8.8 platelets 334 potassium 3.8 creatinine 0.58 10/08/2023: White count 9 hemoglobin 9.8 platelets 392 potassium 4.3 BUN 19 creatinine 0.42 EKG tracing personally reviewed by me- Chest x-ray film personally reviewed by me-no obvious infiltrate Assessment and plan: -Stage IV large sacral decubitus ulcer. Wound culture positive for Pseudomonas on last admission. Patient presents with a temperature 100.8.-Rule out acute exacerbation Consulted: ID Dr. Cotto. Surgery Dr. Atwood. Wound care team. IV Unasyn, As per patient wishes and the son no diverting colostomy-on last admission. Debridement care of by Dr. Nguyen on August 05. Wound VAC in place Discussed with ID. No evidence of acute infection. Stop antibiotics. DC PICC line. -Acute small thrombus in the lower axillary vein along the right PICC line. DC PICC line. Consult Dr. Cobb from vascula. patient already on eliquis r. -Normocytic anemia of chronic disease: Follow H&H -Chronic medical debility. -Chronic constipation MiraLAX, senna plus, lactulose -Diabetes mellitus type 2 Januvia. Lantus Follow Accu-Cheks with sliding scale -Essential hypertension Lopressor 25 mg twice a day -June 2023: of lumbar discitis. Patient had surgery for the same. received antibiotics. -Cognitive impairment -Full code. Spoke to the son Ar . He says he talked to family-patient to remain full code. -PANCHITO Ar Darrell. Son Continue current medication treatment plan. Continue eliquis. DC PICC line. Stop antiemetics. Past Medical History Past Medical History: CVA/TIA, Dementia, Diabetes Mellitus, Hypertension, Osteoarthritis (OA) Additional Past Medical History / Comment(s): Pt states she is on an antibiotic for ear infection/throat infection at this time, TIA which affected speech, pt denies HTN but it is documented in past medical hx, diet controlled diabetes History of Any Multi-Drug Resistant Organisms: None Reported Past Surgical History: Orthopedic Surgery Additional Past Surgical History / Comment(s): I&D tooth abscess, left trigger finger surgery Past Anesthesia/Blood Transfusion Reactions: No Reported Reaction Past Psychological History: Anxiety, Bipolar, Depression Smoking Status: Never smoker Past Alcohol Use History: None Reported Past Drug Use History: None Reported
[2023-10-10 20:17] LABS: Glucose,Whole Blood 197 mg/dL (70-110)
[2023-10-10] MEDS: haloperidoL 5 MG TAB PO SCH (21:20)
[2023-10-10] MEDS: BENZTROPINE MESYLATE 1 MG TAB PO SCH (21:20)
[2023-10-11] MEDS: DICLOFENAC SODIUM GEL 100 GM TUBE TOPICAL SCH ×4 (00:50→16:47)
[2023-10-11 05:47] LABS: Glucose,Whole Blood 133 mg/dL (70-110)
[2023-10-11] MEDS: HYDROcodone/APAP 5-325MG 1 EACH TAB PO PRN ×2 (06:01→16:46)
[2023-10-11] MEDS: INSULIN ASPART (NovoLOG) 100 UNIT/ML VIAL SQ SCH ×3 (06:06→16:47)
[2023-10-11] MEDS: SODIUM CHLORIDE 0.9% 1,000 ML IV SCH (06:06)
[2023-10-11] MEDS: ASCORBIC ACID 500 MG TAB PO SCH (08:28)
[2023-10-11] MEDS: LINAGLIPTIN 5 MG TABLET PO SCH (08:28)
[2023-10-11] MEDS: METOPROLOL TARTRATE 25 MG TAB PO SCH ×3 (08:28→21:39)
[2023-10-11] MEDS: FAMOTIDINE 20 MG TAB PO SCH (08:28)
[2023-10-11] MEDS: polyethylene glycoL 3350 17 GM POWD.PACK PO SCH ×2 (08:28→21:40)
[2023-10-11] MEDS: APIXABAN 5 MG TAB PO SCH ×2 (08:28→21:40)
[2023-10-11] MEDS: SENNOSIDES-DOCUSATE SODIUM 1 EACH TAB PO SCH ×2 (08:28→21:39)
[2023-10-11] MEDS: MULTIVITAMINS, THERA 1 EACH TAB PO SCH (08:28)
[2023-10-11] MEDS: GABAPENTIN 100 MG CAP PO SCH ×2 (08:28→21:40)
[2023-10-11] MEDS: INSULIN DETEMIR (LEVEMIR) 100 UNIT/ML SYR SQ SCH (08:29)
[2023-10-11] MEDS: LACTULOSE 20 GM/30 ML CUP PO SCH (08:29)
[2023-10-11] MEDS: droNABinol 2.5 MG CAP PO SCH ×2 (08:29→21:40)
[2023-10-11 11:21] LABS: Glucose,Whole Blood 259 mg/dL (70-110)
--- NOTE | 2023-10-11 13:19 | P.GSCN ---
History of Present Illness History of present illness: 77-year-old pleasant female patient has a venous stick for decub ulcer patient IV antibiotic the PICC line patient is a clot in the right jugular vein along the PICC line which has been removed the clot is small in size flow noted into the vein patient has no evidence of swelling of the arm I was consulted for evaluation patient is on a liquids continue patient has no shortness of breath or chest pain. Medical history history of diabetes, hypertension, history of bipolar disorder, Patient was seen in the room neck supple no bruit appreciated chest is clear abdomen soft nontender right arm brachial radial pulses are present patient has no evidence of any vascular compromise some swelling noted Plan is continue with the anticoagulation if patient goes home we will follow in my office in 2 weeks to check the status of the artery and the right and remained is any propagation Past Medical History Past Medical History: CVA/TIA, Dementia, Diabetes Mellitus, Hypertension, Osteoarthritis (OA) Additional Past Medical History / Comment(s): Pt states she is on an antibiotic for ear infection/throat infection at this time, TIA which affected speech, pt denies HTN but it is documented in past medical hx, diet controlled diabetes History of Any Multi-Drug Resistant Organisms: None Reported Past Surgical History: Orthopedic Surgery Additional Past Surgical History / Comment(s): I&D tooth abscess, left trigger finger surgery Past Anesthesia/Blood Transfusion Reactions: No Reported Reaction Past Psychological History: Anxiety, Bipolar, Depression Smoking Status: Never smoker Past Alcohol Use History: None Reported Past Drug Use History: None Reported - Past Family History Father Family Medical History: No Reported History Mother Family Medical History: No Reported History Medications and Allergies Home Medications Medication Instructions Recorded Confirmed Type 0.9 % Sodium Chloride [Sodium 10 ml IV Q6H 07/29/23 10/08/23 History Chloride Flush] Apixaban [Eliquis] 5 mg PO BID 07/29/23 10/08/23 History Ascorbic Acid [Vitamin C] 250 mg PO DAILY 07/29/23 10/08/23 History Benztropine Mesylate [Cogentin] 2 mg PO HS 07/29/23 10/08/23 History Cholecalciferol [Vitamin D3 (25 25 mcg PO DAILY 07/29/23 10/08/23 History Mcg = 1000 Iu)] Famotidine [Pepcid] 20 mg PO DAILY 07/29/23 10/08/23 History Ferrous Sulfate [Iron] 325 mg PO DAILY 07/29/23 10/08/23 History Lactulose 20 gm PO DAILY 07/29/23 10/08/23 History Magnesium Hydroxide [Milk of 2,400 mg PO Q72H PRN 07/29/23 10/08/23 History Magnesia] Multivitamins, Thera [Multivitamin 1 tab PO DAILY 07/29/23 10/08/23 History (formulary)] Sennosides/Docusate Sodium [Senna 1 tab PO BID 07/29/23 10/08/23 History Plus 8.6-50 mg Tablet] polyethylene glycoL 3350 [Miralax] 17 gm PO BID 07/29/23 10/08/23 History sitaGLIPtin [Januvia] 50 mg PO DAILY 07/29/23 10/08/23 History Acetaminophen Tab [Tylenol] 500 mg PO Q6HR PRN tab 08/09/23 10/08/23 Rx Metoprolol Tartrate [Lopressor] 25 mg PO TID #0 08/09/23 10/08/23 Rx haloperidoL [Haldol] 2.5 mg PO HS #3 tab 08/09/23 10/08/23 Rx Diclofenac Sodium Gel [Voltaren 1% 2 gm TOPICAL Q6H 08/15/23 10/08/23 History Gel] Brandan Packet 1 packet PO AC-BID 08/15/23 10/08/23 History Benzocaine/Menthol [Cepacol Sore 1 lozenge MM Q4H PRN 10/08/23 10/08/23 History Throat Lozenge] Healthshake 1 dose PO TID-W/MEALS 10/08/23 10/08/23 History INSULIN LISPRO (HumaLOG) [humaLOG] See Protocol SQ AC-TID 10/08/23 10/08/23 Hi story Insulin Glargine,Hum.rec.anlog 10 units SQ DAILY 10/08/23 10/08/23 History [Lantus Solostar Pen] Prostat 30 ml PO BID 10/08/23 10/08/23 History Gabapentin [Neurontin] 100 mg PO BID #6 cap 10/11/23 Rx HYDROcodone/APAP 5-325MG [[place] 1 tab PO Q4HR PRN #18 tab 10/11/23 Rx 5-325] droNABinol [Marinol] 2.5 mg PO BID #6 cap 10/11/23 Rx Allergies Allergy/AdvReac Type Severity Reaction Status Date / Time metformin Allergy Unknown Verified 10/08/23 09:09 Sulfa (Sulfonamide Allergy Unknown Verified 10/08/23 09:09 Antibiotics) Surgical - Exam Vital Signs Temp Pulse Resp BP Pulse Ox 98.3 F 98 18 153/75 96 10/07/23 19:23 10/07/23 19:23 10/07/23 19:23 10/07/23 19:23 10/07/23 19:23 Results - Labs 10/09/23 03:04 10/10/23 05:51 Abnormal Lab Results - Last 24 Hours (Table) 10/10/23 10/10/23 10/11/23 Range/Units 16:45 20:16 05:45 POC Glucose (mg/dL) 211 H 197 H 133 H (70-110) mg/dL 10/11/23 Range/Units 11:20 POC Glucose (mg/dL) 259 H (70-110) mg/dL Microbiology - Last 24 Hours (Table) 10/07/23 20:00 Blood Culture - Preliminary Blood 10/07/23 19:50 Blood Culture - Preliminary Blood
[2023-10-11] MEDS ORDERED: VANCOMYCIN TROUGH DUE 1 EACH MISC MISCELLANE ONE (14:00)
--- NOTE | 2023-10-11 14:02 | P.DS ---
Providers Date of admission: 10/09/23 10:38 Expected date of discharge: 10/11/23 Attending physician: Edgar Zuñiga Consults: 10/08/23 12:29 Consult Physician Routine Consulting Provider: Monika Cotto Consult Reason/Comments: sacral wound, antibiotic management Do you want consulting provider notified?: Yes 10/10/23 17:18 Consult Physician Routine Consulting Provider: Molina Mccormick Consult Reason/Comments: assess the need for anticoagulation with Doppler ultrasound results Do you want consulting provider notified?: Yes Primary care physician: Phoebe Cotto [facility] Course: Chief Complaint: Fever This is a 77-year-old patient, at rehab at [facility]. Being followed by Dr. Mijares. Chronic stable medical conditions includes dementia, diabetes, hypertension, osteoarthritis, bipolar. June 2023 patient was sent to [facility] where patient was found to have discitis in the lumbar area. - surgery for the same and rods in the spine. - come back to rehab. change in mental status patient is sent back to [facility] again. Patient had been septic. Started on IV Zosyn. started off with bedsores that has progressively gotten worse. Local wound care has continued. As a sacral decubiti this became larger patient sent back to the ER on July 292022. As per the granddaughter they'll prefer to have treatment done here and not [place] if that can be avoided. Patient subsequently went wound debridement. Patient and family declined colostomy. Patient is discharged with PICC line and IV Zosyn,eraxis. Patient at [facility]. Reported a fever of 100.8. And the POA requested the patient to be larger at [facility]. Patient is able to answer simple questions has underlying cognitive impairment. Hungry. Wound VAC in place. Both surgical team and ID consulted. Patient does complain of pain at the sacral decubitus site. 10/09/2023: Patient is seen by wound care team Dr. mccallum. Wound VAC to continue. I spoke to patient's son Kai over the phone. Because of cultures pending and further evaluation patient has been made inpatient. Patient is picky about her diet. Told the nurse to have the family, come in during mealtimes to encourage oral intake. 10/10/2023: Late yesterday of this consult with the family about mental status changes. Computed tomography scan of the brain without contrast was negative for any stroke. Patient's other picky about food. On antibiotics. Discussed with Dr. Griffith from ID.. Wound appears to be healing well. Antiemetics can be discontinued. PICC line to be discontinued. With a small thrombus reported in the lower extremity. Along the right PICC line. We'll consult vascular for that. In regards to anticoagulation. 10/11/2023: Comfortable. Eating well this morning. Antibiotics discontinued. PICC line discontinued. Discussed with Dr. Cobb from vascular. Continue eliquis. Follow-up with them. Also spoke to patient's son Kai over the phone. Updated. Patient is pending authorization to go back to [facility]. Discussion and discharge planning more than 35 minutes Past medical history to include: Dementia, diabetes, hypertension, osteoarthritis,, bipolar, discitis-lumbar, sacral decub is ulcer Social history: No smoking or alcohol history. Currently at rehab at [facility]. Patient's son Ar Ramírez is the POA. Physical examination: VITAL SIGNS: 98.5, 74, 16, 155 and 72, 99% room air GENERAL: In bed, comfortable EYES: Pupils equal. Conjunctiva normal. HEENT: External appearance of nose and ears normal, oral cavity grossly normal. NECK: JVD not raised; masses not palpable. HEART: First and second heart sounds are normal; no edema. LUNGS: Respiratory rate normal; clear to auscultation. ABDOMEN: Soft, nontender, liver spleen not palpable, no masses palpable. [place] PSYCH: [Able to answer simple questions. Patient stating I do not want colostomy DERMATOLOGICAL: Sacral decubitus ulcer with: Wound VAC MUSCULOSKELETAL:No Clubbing/cyanosis;muscles-grossly intact, OA INVESTIGATIONS, reviewed in the clinical context: Venous Doppler duplex right upper extremity: Small thrombus in the lower axillary vein along the right PICC line. 10/09/2023: White count 8.3 and globin 8.8 platelets 334 potassium 3.8 creatinine 0.58 10/08/2023: White count 9 hemoglobin 9.8 platelets 392 potassium 4.3 BUN 19 creatinine 0.42 EKG tracing personally reviewed by me- Chest x-ray film personally reviewed by me-no obvious infiltrate Assessment and plan: -Stage IV large sacral decubitus ulcer. Wound culture positive for Pseudomonas on last admission. Patient presents with a temperature 100.8.-Rule out acute exacerbation Consulted: ID Dr. Cotto. Surgery Dr. Atwood. Wound care team. Antibiotics discontinued. It was felt the patient's wound has healing well. As per patient wishes and the son no diverting colostomy-on last admission. Debridement care of by Dr. Nguyen on August 05. Wound VAC in place Discussed with ID. No evidence of acute infection. Stop antibiotics. DC PICC line. -Acute small thrombus in the lower axillary vein along the right PICC line. DC PICC line. Consult Dr. Cobb. Continue eliquis.. -Normocytic anemia of chronic disease: Follow H&H -Chronic medical debility. -Chronic constipation MiraLAX, senna plus, lactulose -Diabetes mellitus type 2 Januvia. Lantus Follow Accu-Cheks with sliding scale -Essential hypertension Lopressor 25 mg twice a day -June 2023: of lumbar discitis. Patient had surgery for the same. received antibiotics. -Cognitive impairment -Full code. Spoke to the son Ar . He says he talked to family-patient to remain full code. -DPOA, Ar Ramírez. Son Disposition: [facility] Past Medical History Past Medical History: CVA/TIA, Dementia, Diabetes Mellitus, Hypertension, Osteoarthritis (OA) Additional Past Medical History / Comment(s): Pt states she is on an antibiotic for ear infection/throat infection at this time, TIA which affected speech, pt denies HTN but it is documented in past medical hx, diet controlled diabetes History of Any Multi-Drug Resistant Organisms: None Reported Past Surgical History: Orthopedic Surgery Additional Past Surgical History / Comment(s): I&D tooth abscess, left trigger finger surgery Past Anesthesia/Blood Transfusion Reactions: No Reported Reaction Past Psychological History: Anxiety, Bipolar, Depression Smoking Status: Never smoker Past Alcohol Use History: None Reported Past Drug Use History: None Reported Plan - Discharge Summary Discharge Rx Participant: Yes New Discharge Prescriptions: Continue 0.9 % Sodium Chloride [Sodium Chloride Flush] 10 ml IV Q6H Apixaban [Eliquis] 5 mg PO BID Multivitamins, Thera [Multivitamin (formulary)] 1 tab PO DAILY Famotidine [Pepcid] 20 mg PO DAILY Lactulose 20 gm PO DAILY Cholecalciferol [Vitamin D3 (25 Mcg = 1000 Iu)] 25 mcg PO DAILY Ascorbic Acid [Vitamin C] 250 mg PO DAILY haloperidoL [Haldol] 2.5 mg PO HS #3 tab Brandan Packet 1 packet PO AC-BID Prostat 30 ml PO BID INSULIN LISPRO (HumaLOG) [humaLOG] See Protocol SQ AC-TID droNABinol [Marinol] 2.5 mg PO BID #6 cap HYDROcodone/APAP 5-325MG [[place] 5-325] 1 tab PO Q4HR PRN #18 tab PRN Reason: Pain Magnesium Hydroxide [Milk of Magnesia] 2,400 mg PO Q72H PRN PRN Reason: Constipation Benztropine Mesylate [Cogentin] 2 mg PO HS sitaGLIPtin [Januvia] 50 mg PO DAILY Ferrous Sulfate [Iron] 325 mg PO DAILY Sennosides/Docusate Sodium [Senna Plus 8.6-50 mg Tablet] 1 tab PO BID polyethylene glycoL 3350 [Miralax] 17 gm PO BID Acetaminophen Tab [Tylenol] 500 mg PO Q6HR PRN tab PRN Reason: Fever And/ Or Pain Metoprolol Tartrate [Lopressor] 25 mg PO TID #0 Diclofenac Sodium Gel [Voltaren 1% Gel] 2 gm TOPICAL Q6H Healthshake 1 dose PO TID-W/MEALS Benzocaine/Menthol [Cepacol Sore Throat Lozenge] 1 lozenge MM Q4H PRN PRN Reason: cough/sore throat Insulin Glargine,Hum.rec.anlog [Lantus Solostar Pen] 10 units SQ DAILY Gabapentin [Neurontin] 100 mg PO BID #6 cap Discontinued Piperacillin-Tazobactam [Zosyn] 3.375 gm IVPB Q8HR #120 each Discharge Medication List 0.9 % Sodium Chloride [Sodium Chloride Flush] 10 ml IV Q6H 07/29/23 [History] Apixaban [Eliquis] 5 mg PO BID 07/29/23 [History] Ascorbic Acid [Vitamin C] 250 mg PO DAILY 07/29/23 [History] Benztropine Mesylate [Cogentin] 2 mg PO HS 07/29/23 [History] Cholecalciferol [Vitamin D3 (25 Mcg = 1000 Iu)] 25 mcg PO DAILY 07/29/23 [History] Famotidine [Pepcid] 20 mg PO DAILY 07/29/23 [History] Ferrous Sulfate [Iron] 325 mg PO DAILY 07/29/23 [History] Lactulose 20 gm PO DAILY 07/29/23 [History] Magnesium Hydroxide [Milk of Magnesia] 2,400 mg PO Q72H PRN 07/29/23 [History] Multivitamins, Thera [Multivitamin (formulary)] 1 tab PO DAILY 07/29/23 [History] Sennosides/Docusate Sodium [Senna Plus 8.6-50 mg Tablet] 1 tab PO BID 07/29/23 [History] polyethylene glycoL 3350 [Miralax] 17 gm PO BID 07/29/23 [History] sitaGLIPtin [Januvia] 50 mg PO DAILY 07/29/23 [History] Acetaminophen Tab [Tylenol] 500 mg PO Q6HR PRN tab 08/09/23 [Rx] Metoprolol Tartrate [Lopressor] 25 mg PO TID #0 08/09/23 [Rx] haloperidoL [Haldol] 2.5 mg PO HS #3 tab 08/09/23 [Rx] Diclofenac Sodium Gel [Voltaren 1% Gel] 2 gm TOPICAL Q6H 08/15/23 [History] Brandan Packet 1 packet PO AC-BID 08/15/23 [History] Benzocaine/Menthol [Cepacol Sore Throat Lozenge] 1 lozenge MM Q4H PRN 10/08/23 [History] Healthshake 1 dose PO TID-W/MEALS 10/08/23 [History] INSULIN LISPRO (HumaLOG) [humaLOG] See Protocol SQ AC-TID 10/08/23 [History] Insulin Glargine,Hum.rec.anlog [Lantus Solostar Pen] 10 units SQ DAILY 10/08/23 [History] Prostat 30 ml PO BID 10/08/23 [History] Gabapentin [Neurontin] 100 mg PO BID #6 cap 10/11/23 [Rx] HYDROcodone/APAP 5-325MG [[place] 5-325] 1 tab PO Q4HR PRN #18 tab 10/11/23 [Rx] droNABinol [Marinol] 2.5 mg PO BID #6 cap 10/11/23 [Rx] Follow up Appointment(s)/Referral(s): Maykel Mijares DO [STAFF PHYSICIAN] - 1-2 Days [facility] [place], [NON-STAFF] - As Needed
--- NOTE | 2023-10-11 15:00 | P.PN ---
Subjective Progress Note Date: 10/11/23 Principal diagnosis: Reason for follow-up is fever Patient is a 77-year-old -Finnish female with a past medical history significant for infected sacral pressure ulcer with underlying osteomyelitis in this patient who did have debridement of the wound done on 08/05/2023 and the patient did grow Pseudomonas aeruginosa and Cristina species patient has been treated with IV Zosyn and also received a course of Eraxis, patient was sent to the ER for evaluation of a fever at the [facility]. On today's evaluation that is 10/11/2023 patient continues to be afebrile, patient is breathing comfortably on room air, the patient denies chest pain shortness of the cough no abdominal pain no diarrhea has been reported. No new symptoms Patient did have a white count of 8.3, creatinine 0.58 blood cultures so far negative ultrasound right upper extremity positive for DVT in the axillary vein Objective - Vital Signs Vital signs: Vital Signs Temp 98.5 F 10/11/23 08:00 Pulse 74 10/11/23 08:00 Resp 16 10/11/23 08:00 BP 155/72 10/11/23 08:00 Pulse Ox 99 10/11/23 08:00 FiO2 Intake & Output 10/10/23 10/11/23 10/11/23 18:59 06:59 18:59 Intake Total 950 Output Total 850 1 Balance 100 -1 Weight 73.028 kg Intake: Intake, IV Titration 950 Amount Cefepime 2 gm In Sodium 100 Chloride 0.9% 100 ml @ 25 mls/hr IVPB Q8HR LA[facility]EN Rx# :[id number] Sodium Chloride 0.9% 1, 600 000 ml @ 75 mls/hr IV . [id number] LAUREN Rx#:[id number] Vancomycin 1,250 mg In 250 Sodium Chloride 0.9% 250 ml @ 125 mls/hr IVPB Q12H LAUREN Rx#:[id number] Output: Urine 850 Stool 1 Other: Voiding Method External Catheter External Catheter # Voids 4 - Exam GENERAL DESCRIPTION: An elderly female lying in bed in no distress RESPIRATORY SYSTEM: Unlabored breathing , decreased breath sounds at bases HEART: S1 S2 regular rate and rhythm , ABDOMEN: Soft , no tenderness EXTREMITIES: No edema feet Patient sacral wound is current with a wound VAC - Labs CBC & Chem 7: 10/09/23 03:04 10/10/23 05:51 Labs: Abnormal Lab Results - Last 24 Hours (Table) 10/10/23 10/10/23 10/10/23 Range/Units 11:16 16:45 20:16 POC Glucose (mg/dL) 168 H 211 H 197 H (70-110) mg/dL 10/11/23 Range/Units 05:45 POC Glucose (mg/dL) 133 H (70-110) mg/dL Microbiology - Last 24 Hours (Table) 10/07/23 20:00 Blood Culture - Preliminary Blood 10/07/23 19:50 Blood Culture - Preliminary Blood Assessment and Plan (1) Sacral osteomyelitis Current Visit: Yes Status: Acute Code(s): M46.28 - OSTEOMYELITIS OF VERTEBRA , SACRAL AND SACROCOCCYGEAL REGION SNOMED Code(s): 966758309 (2) Stage IV pressure ulcer of sacral region Current Visit: Yes Status: Acute Code(s): L89.154 - PRESSURE ULCER OF SACRAL REGION, STAGE 4 SNOMED Code(s): 49554853778259 (3) Fever Current Visit: Yes Status: Acute Code(s): R50.9 - FEVER, UNSPECIFIED SNOMED Code(s): 940622174 Plan: 1patient presented hospital with a fever at the local [facility] in this patient who did have a history of sacral osteomyelitis secondary to Pseudomonas aeruginosa for the patient has been on IV Zosyn for almost 8 weeks now, antibiotic were extended beyond 6 weeks because of elevated inflammatory markers which were trending down and this patient was evaluated at the wound care center yesterday and has been told the wound was healing well patient did have a negative UA chest x-ray reported negative abdomen was soft on clinical examination with question of possible PICC line infection, blood culture has been negative ultrasound has been suggestive of clot in the axillary vein around the PICC line possible source of the fever 2-blood culture has been negative 3-patient did have evidence of any DVT in the axillary on the PICC line more likely responsible for fever as cultures are negative patient has received more than 8 weeks of IV antibiotic therapy and the sacral wound looks clean antibiotics has been discontinued PICC line has been discontinued patient is already on Eliquis, she will continue follow-up with the wound care center for local wound care Dictation was produced using [employer] dictation software. please excuse any grammatical, word or spelling errors. Time with Patient: Less than 30
[2023-10-11 16:05] LABS: African American GFR (CKD) >90 (>60 ml/min/1.73 sqM); Non-African American GFR(CKD) >90 (>60 ml/min/1.73 sqM)
[2023-10-11 16:41] LABS: Glucose,Whole Blood 95 mg/dL (70-110)
[2023-10-11] MEDS: BENZTROPINE MESYLATE 1 MG TAB PO SCH (21:39)
[2023-10-11] MEDS: haloperidoL 5 MG TAB PO SCH (21:39)
[2023-10-12] MEDS: DICLOFENAC SODIUM GEL 100 GM TUBE TOPICAL SCH ×5 (00:58→23:02)
[2023-10-12 05:14] LABS: Glucose,Whole Blood 97 mg/dL (70-110)
[2023-10-12] MEDS: INSULIN ASPART (NovoLOG) 100 UNIT/ML VIAL SQ SCH ×4 (06:40→21:10)
[2023-10-12] MEDS: APIXABAN 5 MG TAB PO SCH ×3 (11:37→21:09)
[2023-10-12] MEDS: droNABinol 2.5 MG CAP PO SCH ×2 (11:37→21:10)
[2023-10-12] MEDS: ASCORBIC ACID 500 MG TAB PO SCH (11:37)
[2023-10-12] MEDS: FAMOTIDINE 20 MG TAB PO SCH ×2 (11:38→16:46)
[2023-10-12] MEDS: MULTIVITAMINS, THERA 1 EACH TAB PO SCH (11:38)
[2023-10-12] MEDS: INSULIN DETEMIR (LEVEMIR) 100 UNIT/ML SYR SQ SCH (11:38)
[2023-10-12] MEDS: METOPROLOL TARTRATE 25 MG TAB PO SCH ×3 (11:38→21:10)
[2023-10-12] MEDS: GABAPENTIN 100 MG CAP PO SCH ×3 (11:38→21:11)
[2023-10-12] MEDS: LINAGLIPTIN 5 MG TABLET PO SCH ×2 (11:38→16:46)
[2023-10-12] MEDS: LACTULOSE 20 GM/30 ML CUP PO SCH ×2 (11:38→16:46)
[2023-10-12] MEDS: polyethylene glycoL 3350 17 GM POWD.PACK PO SCH ×2 (11:39→21:09)
[2023-10-12] MEDS: SENNOSIDES-DOCUSATE SODIUM 1 EACH TAB PO SCH ×2 (11:39→21:10)
[2023-10-12 11:41] LABS: Glucose,Whole Blood 117 mg/dL (70-110)
--- NOTE | 2023-10-12 14:50 | P.PN ---
Subjective Progress Note Date: 10/12/23 77-year-old patient, at rehab at [facility]. Being followed by Dr. Mijares. Chronic stable medical conditions includes dementia, diabetes, hypertension, osteoarthritis, bipolar. June 2023 patient was sent to [facility] where patient was found to have discitis in the lumbar area. - surgery for the same and rods in the spine. - come back to rehab. change in mental status patient is sent back to [facility] again. Patient had been septic. Started on IV Zosyn. started off with bedsores that has progressively gotten worse. Local wound care has continued. As a sacral decubiti this became larger patient sent back to the ER on July [id number]. As per the granddaughter they'll prefer to have treatment done here and not [place] if that can be avoided. Patient subsequently went wound debridement. Patient and family declined colostomy. Patient is discharged with PICC line and IV Zosyn,eraxis. Patient at [facility]. Reported a fever of 100.8. And the POA requested the patient to be larger at [facility]. Patient is able to answer simple questions has underlying cognitive impairment. Hungry. Wound VAC in place. Both surgical team and ID consulted. Patient does complain of pain at the sacral decubitus site. 10/09/2023: Patient is seen by wound care team Dr. mccallum. Wound VAC to continue. I spoke to patient's son Kai over the phone. Because of cultures pending and further evaluation patient has been made inpatient. Patient is picky about her diet. Told the nurse to have the family, come in during mealtimes to encourage oral intake. 10/10/2023: Late yesterday of this consult with the family about mental status changes. Computed tomography scan of the brain without contrast was negative for any stroke. Patient's other picky about food. On antibiotics. Discussed with Dr. Griffith from ID.. Wound appears to be healing well. Antiemetics can be discontinued. PICC line to be discontinued. With a small thrombus reported in the lower extremity. Along the right PICC line. We'll consult vascular for that. In regards to anticoagulation. 10/11/2023: Comfortable. Eating well this morning. Antibiotics discontinued. PICC line discontinued. Discussed with Dr. Cobb from vascular. Continue eliquis. Follow-up with them. Also spoke to patient's son Kai over the phone. Updated. Patient is pending authorization to go back to [facility]. 10/12/2023: Patient seen and evaluated bedside, patient is alert per nursing Center patient refusing medication, patient counseled regarding medication compliance. Plan to discharge to rehab once authorization approved GENERAL: In bed, comfortable EYES: Pupils equal. Conjunctiva normal. HEENT: External appearance of nose and ears normal, oral cavity grossly normal. NECK: JVD not raised; masses not palpable. HEART: First and second heart sounds are normal; no edema. LUNGS: Respiratory rate normal; clear to auscultation. ABDOMEN: Soft, nontender, liver spleen not palpable, no masses palpable. Quintanilla PSYCH: [Able to answer simple questions. Patient stating I do not want colostomy DERMATOLOGICAL: Sacral decubitus ulcer with: Wound VAC MUSCULOSKELETAL:No Clubbing/cyanosis;muscles-grossly intact, OA Objective - Vital Signs Vital signs: Vital Signs Temp 97.6 F 10/12/23 07:50 Pulse 75 10/12/23 07:50 Resp 17 10/12/23 07:50 BP 127/75 10/12/23 07:50 Pulse Ox 92 L 10/12/23 07:50 FiO2 Intake & Output 10/11/23 10/12/23 10/12/23 18:59 06:59 18:59 Output Total 300 1100 Balance -300 -1100 Output: Urine 300 1100 Other: Voiding Method External Catheter # Voids 3 2 # Bowel Movements 2 - Labs CBC & Chem 7: 10/09/23 03:04 10/11/23 15:12 Labs: Abnormal Lab Results - Last 24 Hours (Table) 10/11/23 10/12/23 Range/Units 15:12 11:39 Creatinine 0.47 L (0.52-1.04) mg/dL POC Glucose (mg/dL) 117 H (70-110) mg/dL Assessment and Plan Assessment: Assessment and plan: * Stage IV large sacral decubitus ulcer. Wound culture positive for Pseudomonas on last admission. Patient presents with a temperature 100.8.-Rule out acute exacerbation * Consulted: ID Dr. Cotto. Surgery Dr. Atwood. Wound care team. * Antibiotics discontinued. It was felt the patient's wound has healing well. * As per patient wishes and the son no diverting colostomy-on last admission. * Debridement care of by Dr. Nguyen on August 05. * Wound VAC in place * Discussed with ID. No evidence of acute infection. Stop antibiotics. DC PICC line. * Acute small thrombus in the lower axillary vein along the right PICC line. * DC PICC line. Consult Dr. Cobb. Continue eliquis.. * Normocytic anemia of chronic disease: * Chronic medical debility. * Chronic constipation >> MiraLAX, senna plus, lactulose * Diabetes mellitus type 2 >> Januvia. Lantus Follow Accu-Cheks with sliding scale * Essential hypertension >> Lopressor 25 mg twice a day * Cognitive impairment
--- NOTE | 2023-10-12 14:54 | P.PN ---
Subjective Progress Note Date: 10/12/23 Principal diagnosis: Reason for follow-up is fever Patient is a 77-year-old -Kazakh female with a past medical history significant for infected sacral pressure ulcer with underlying osteomyelitis in this patient who did have debridement of the wound done on 08/05/2023 and the patient did grow Pseudomonas aeruginosa and Cristina species patient has been treated with IV Zosyn and also received a course of Eraxis, patient was sent to the ER for evaluation of a fever at the [facility]. On today's evaluation that is 10/12/2023 patient remains to be afebrile, patient is breathing comfortably on room air, the patient denies chest pain shortness of the cough, the patient denies having any nausea no vomiting no abdominal pain no diarrhea has been reported. Patient did have a white count of 8.3, creatinine 0.58 as of 10/11/2023 blood cultures so far negative ultrasound right upper extremity positive for DVT in the axillary vein Objective - Vital Signs Vital signs: Vital Signs Temp 97.6 F 10/12/23 07:50 Pulse 75 10/12/23 07:50 Resp 17 10/12/23 07:50 BP 127/75 10/12/23 07:50 Pulse Ox 92 L 10/12/23 07:50 FiO2 Intake & Output 10/11/23 10/12/23 10/12/23 18:59 06:59 18:59 Output Total 300 1100 Balance -300 -1100 Output: Urine 300 1100 Other: Voiding Method External Catheter # Voids 3 2 # Bowel Movements 2 - Exam GENERAL DESCRIPTION: An elderly female lying in bed in no distress RESPIRATORY SYSTEM: Unlabored breathing , decreased breath sounds at bases HEART: S1 S2 regular rate and rhythm , ABDOMEN: Soft , no tenderness EXTREMITIES: No edema feet Patient sacral wound is current with a wound VAC - Labs CBC & Chem 7: 10/09/23 03:04 10/11/23 15:12 Labs: Abnormal Lab Results - Last 24 Hours (Table) 10/11/23 10/11/23 Range/Units 11:20 15:12 Creatinine 0.47 L (0.52-1.04) mg/dL POC Glucose (mg/dL) 259 H (70-110) mg/dL Assessment and Plan (1) Fever Current Visit: Yes Status: Acute Code(s): R50.9 - FEVER, UNSPECIFIED SNOMED Code(s): 203579475 (2) Sacral osteomyelitis Current Visit: Yes Status: Acute Code(s): M46.28 - OSTEOMYELITIS OF VERTEBRA, SACRAL AND SACROCOCCYGEAL REGION SNOMED Code(s): 378876920 (3) Stage IV pressure ulcer of sacral region Current Visit: Yes Status: Acute Code(s): L89.154 - PRESSURE ULCER OF SACRAL REGION, STAGE 4 SNOMED Code(s): 35924951504555 Plan: 1patient presented hospital with a fever at the local [facility] in this patient who did have a history of sacral osteomyelitis secondary to Pseudomonas aeruginosa for the patient has been on IV Zosyn for almost 8 weeks now, antibiotic were extended beyond 6 weeks because of elevated inflammatory markers which were trending down and this patient was evaluated at the wound care center yesterday and has been told the wound was healing well patient did have a negative UA chest x-ray reported negative abdomen was soft on clinical examination with question of possible PICC line infection, blood culture has been negative ultrasound has been suggestive of clot in the axillary vein around the PICC line possible source of the fever 2-blood culture has been negative 3-patient did have evidence of any DVT in the axillary on the PICC line more likely responsible for fever as cultures are negative patient has received more than 8 weeks of IV antibiotic therapy and the sacral wound looks clean antibiotics has been discontinued PICC line has been discontinued, patient is already on Eliquis to continue 4we will monitor the patient closely off antibiotic therapy local wound care to continue with the wound VAC Dictation was produced using [employer] dictation software. please excuse any gram matical, word or spelling errors.
[2023-10-12] MEDS: HYDROcodone/APAP 5-325MG 1 EACH TAB PO PRN ×2 (16:46→21:11)
[2023-10-12 17:06] LABS: Glucose,Whole Blood 160 mg/dL (70-110)
[2023-10-12 19:45] LABS: Glucose,Whole Blood 320 mg/dL (70-110)
[2023-10-12 19:48] LABS: Glucose,Whole Blood 337 mg/dL (70-110)
[2023-10-12] MEDS: haloperidoL 5 MG TAB PO SCH (21:10)
[2023-10-12] MEDS: BENZTROPINE MESYLATE 1 MG TAB PO SCH (21:11)
[2023-10-13 05:10] LABS: Glucose,Whole Blood 184 mg/dL (70-110)
[2023-10-13] MEDS: INSULIN ASPART (NovoLOG) 100 UNIT/ML VIAL SQ SCH ×4 (06:17→20:16)
[2023-10-13] MEDS: DICLOFENAC SODIUM GEL 100 GM TUBE TOPICAL SCH ×3 (06:18→18:49)
[2023-10-13] MEDS: SENNOSIDES-DOCUSATE SODIUM 1 EACH TAB PO SCH ×2 (09:53→20:17)
[2023-10-13] MEDS: ASCORBIC ACID 500 MG TAB PO SCH (09:53)
[2023-10-13] MEDS: LACTULOSE 20 GM/30 ML CUP PO SCH (09:53)
[2023-10-13] MEDS: LINAGLIPTIN 5 MG TABLET PO SCH (09:53)
[2023-10-13] MEDS: droNABinol 2.5 MG CAP PO SCH ×2 (09:53→20:16)
[2023-10-13] MEDS: METOPROLOL TARTRATE 25 MG TAB PO SCH ×3 (09:53→20:15)
[2023-10-13] MEDS: MULTIVITAMINS, THERA 1 EACH TAB PO SCH (09:53)
[2023-10-13] MEDS: GABAPENTIN 100 MG CAP PO SCH ×2 (09:53→20:15)
[2023-10-13] MEDS: polyethylene glycoL 3350 17 GM POWD.PACK PO SCH ×2 (09:53→20:17)
[2023-10-13] MEDS: APIXABAN 5 MG TAB PO SCH ×2 (09:54→20:16)
[2023-10-13] MEDS: FAMOTIDINE 20 MG TAB PO SCH (09:54)
[2023-10-13] MEDS: INSULIN DETEMIR (LEVEMIR) 100 UNIT/ML SYR SQ SCH (09:55)
[2023-10-13 11:32] LABS: Glucose,Whole Blood 140 mg/dL (70-110)
--- NOTE | 2023-10-13 14:06 | P.PN ---
Subjective Progress Note Date: 10/13/23 77-year-old patient, at rehab at [facility]. Being followed by Dr. Mijares. Chronic stable medical conditions includes dementia, diabetes, hypertension, osteoarthritis, bipolar. June 2023 patient was sent to [facility] where patient was found to have discitis in the lumbar area. - surgery for the same and rods in the spine. - come back to rehab. change in mental status patient is sent back to [facility] again. Patient had been septic. Started on IV Zosyn. started off with bedsores that has progressively gotten worse. Local wound care has continued. As a sacral decubiti this became larger patient sent back to the ER on July 292022. As per the granddaughter they'll prefer to have treatment done here and not [place] if that can be avoided. Patient subsequently went wound debridement. Patient and family declined colostomy. Patient is discharged with PICC line and IV Zosyn,eraxis. Patient at [facility]. Reported a fever of 100.8. And the POA requested the patient to be larger at [facility]. Patient is able to answer simple questions has underlying cognitive impairment. Hungry. Wound VAC in place. Both surgical team and ID consulted. Patient does complain of pain at the sacral decubitus site. 10/09/2023: Patient is seen by wound care team Dr. mccallum. Wound VAC to continue. I spoke to patient's son Kai over the phone. Because of cultures pending and further evaluation patient has been made inpatient. Patient is picky about her diet. Told the nurse to have the family, come in during mealtimes to encourage oral intake. 10/10/2023: Late yesterday of this consult with the family about mental status changes. Computed tomography scan of the brain without contrast was negative for any stroke. Patient's other picky about food. On antibiotics. Discussed with Dr. Griffith from ID.. Wound appears to be healing well. Antiemetics can be discontinued. PICC line to be discontinued. With a small thrombus reported in the lower extremity. Along the right PICC line. We'll consult vascular for that. In regards to anticoagulation. 10/11/2023: Comfortable. Eating well this morning. Antibiotics discontinued. PICC line discontinued. Discussed with Dr. Cobb from vascular. Continue eliquis. Follow-up with them. Also spoke to patient's son Kai over the phone. Updated. Patient is pending authorization to go back to [facility]. 10/12/2023: Patient seen and evaluated bedside, patient is alert per nursing Center patient refusing medication, patient counseled regarding medication compliance. Plan to discharge to rehab once authorization approved 10/13/2023: Patient seen and evaluated bedside patient is sleeping however easily arousable denies of any acute issues .patient to be discharged to rehab facility GENERAL: In bed, comfortable EYES: Pupils equal. Conjunctiva normal. HEENT: External appearance of nose and ears normal, oral cavity grossly normal. NECK: JVD not raised; masses not palpable. HEART: First and second heart sounds are normal; no edema. LUNGS: Respiratory rate normal; clear to auscultation. ABDOMEN: Soft, nontender, liver spleen not palpable, no masses palpable. Quintanilla PSYCH: [Able to answer simple questions. Patient stating I do not want colostomy DERMATOLOGICAL: Sacral decubitus ulcer with: Wound VAC MUSCULOSKELETAL:No Clubbing/cyanosis;muscles-grossly intact, OA Objective - Vital Signs Vital signs: Vital Signs Temp 98.0 F 10/13/23 07:49 Pulse 85 10/13/23 07:49 Resp 21 10/13/23 07:49 BP 117/68 10/13/23 07:49 Pulse Ox 96 10/13/23 07:49 FiO2 Intake & Output 10/12/23 10/13/23 10/13/23 18:59 06:59 18:59 Output Total 1 Balance -1 Output: Stool 1 Other: Voiding Method External Catheter External Catheter External Catheter # Voids 1 # Bowel Movements 0 - Labs CBC & Chem 7: 10/09/23 03:04 10/11/23 15:12 Labs: Abnormal Lab Results - Last 24 Hours (Table) 10/12/23 10/12/23 10/12/23 Range/Units 17:05 19:45 19:48 POC Glucose (mg/dL) 160 H 320 H 337 H (70-110) mg/dL 10/13/23 10/13/23 Range/Units 05:09 11:31 POC Glucose (mg/dL) 184 H 140 H (70-110) mg/dL Microbiology - Last 24 Hours (Table) 10/07/23 20:00 Blood Culture - Final Blood 10/07/23 19:50 Blood Culture - Final Blood Assessment and Plan Assessment: Assessment and plan: * Stage IV large sacral decubitus ulcer. Wound culture positive for Pseudomonas on last admission. Patient presents with a temperature 100.8.-Rule out acute exacerbation * Consulted: ID Dr. Cotto. Surgery Dr. Atwood. Wound care team. * Antibiotics discontinued. It was felt the patient's wound has healing well. * As per patient wishes and the son no diverting colostomy-on last admission. * Debridement care of by Dr. Nguyen on August 05. * Wound VAC in place * Discussed with ID. No evidence of acute infection. Stop antibiotics. DC PICC line. * Acute small thrombus in the lower axillary vein along the right PICC line. * DC PICC line. Consult Dr. Cobb. Continue eliquis.. * Normocytic anemia of chronic disease: * Chronic medical debility. * Chronic constipation >> MiraLAX, senna plus, lactulose * Diabetes mellitus type 2 >> Januvia. Lantus Follow Accu-Cheks with sliding scale * Essential hypertension >> Lopressor 25 mg twice a day * Cognitive impairment
[2023-10-13] MEDS: HYDROcodone/APAP 5-325MG 1 EACH TAB PO PRN (14:45)
[2023-10-13 16:33] LABS: Glucose,Whole Blood 154 mg/dL (70-110)
--- NOTE | 2023-10-13 17:05 | P.PN ---
Subjective Progress Note Date: 10/13/23 Principal diagnosis: Reason for follow-up is fever Patient is a 77-year-old -Tongan female with a past medical history significant for infected sacral pressure ulcer with underlying osteomyelitis in this patient who did have debridement of the wound done on 08/05/2023 and the patient did grow Pseudomonas aeruginosa and Cristina species patient has been treated with IV Zosyn and also received a course of Eraxis, patient was sent to the ER for evaluation of a fever at the long term. On today's evaluation that is 10/13/2023, the patient remains to be afebrile, the patient is breathing comfortably on room air and the patient denies any shortness of breath, the patient denies chest pain or any cough , patient denies any nausea/vomiting abdominal pain or diarrhea Patient did have a white count of 8.3, creatinine 0.58 as of 10/11/2023, no new labs has been obtained today blood cultures so far negative ultrasound right upper extremity positive for DVT in the axillary vein Objective - Vital Signs Vital signs: Vital Signs Temp 97.5 F L 10/13/23 14:00 Pulse 74 10/13/23 14:00 Resp 19 10/13/23 14:00 BP 120/62 10/13/23 14:00 Pulse Ox 96 10/13/23 14:00 FiO2 Intake & Output 10/12/23 10/13/23 10/13/23 18:59 06:59 18:59 Output Total 1 Balance -1 Output: Stool 1 Other: Voiding Method External Catheter External Catheter External Catheter # Voids 1 # Bowel Movements 0 - Exam GENERAL DESCRIPTION: An elderly female lying in bed in no distress RESPIRATORY SYSTEM: Unlabored breathing , decreased breath sounds at bases HEART: S1 S2 regular rate and rhythm , ABDOMEN: Soft , no tenderness EXTREMITIES: No edema feet Patient sacral wound is current with a wound VAC - Labs CBC & Chem 7: 10/09/23 03:04 10/11/23 15:12 Labs: Abnormal Lab Results - Last 24 Hours (Table) 10/12/23 10/12/23 10/12/23 Range/Units 17:05 19:45 19:48 POC Glucose (mg/dL) 160 H 320 H 337 H (70-110) mg/dL 10/13/23 10/13/23 10/13/23 Range/Units 05:09 11:31 16:31 POC Glucose (mg/dL) 184 H 140 H 154 H (70-110) mg/dL Microbiology - Last 24 Hours (Table) 10/07/23 20:00 Blood Culture - Final Blood 10/07/23 19:50 Blood Culture - Final Blood Assessment and Plan (1) Fever Current Visit: Yes Status: Acute Code(s): R50.9 - FEVER, UNSPECIFIED SNOM ED Code(s): 457359111 (2) Sacral osteomyelitis Current Visit: Yes Status: Acute Code(s): M46.28 - OSTEOMYELITIS OF VERTEBRA, SACRAL AND SACROCOCCYGEAL REGION SNOMED Code(s): 188074854 (3) Stage IV pressure ulcer of sacral region Current Visit: Yes Status: Acute Code(s): L89.154 - PRESSURE ULCER OF SACRAL REGION, STAGE 4 SNOMED Code(s): 91575950802118 Plan: 1patient presented hospital with a fever at the local long term in this patient who did have a history of sacral osteomyelitis secondary to Pseudomonas aeruginosa for the patient has been on IV Zosyn for almost 8 weeks now, antibiotic were extended beyond 6 weeks because of elevated inflammatory markers which were trending down and this patient was evaluated at the wound care center yesterday and has been told the wound was healing well patient did have a negative UA chest x-ray reported negative abdomen was soft on clinical examination with question of possible PICC line infection, blood culture has been negative ultrasound has been suggestive of clot in the axillary vein around the PICC line possible source of the fever 2-blood culture has been negative 3-patient did have evidence of any DVT in the axillary on the PICC line more lik lisa responsible for fever as cultures are negative patient has received more than 8 weeks of IV antibiotic therapy and the sacral wound looks clean antibiotics has been discontinued PICC line has been discontinued, patient is already on Eliquis to continue 4patient currently doing well off antibiotic therapy for more than 48 hours with no recurrence of fever and will be monitored closely off antibiotic Dictation was produced using [employer] dictation software. please excuse any grammatical, word or spelling errors. Time with Patient: Less than 30
[2023-10-13 19:59] LABS: Glucose,Whole Blood 282 mg/dL (70-110)
[2023-10-13] MEDS: BENZTROPINE MESYLATE 1 MG TAB PO SCH (20:16)
[2023-10-13] MEDS: haloperidoL 5 MG TAB PO SCH (20:16)
[2023-10-14] MEDS: DICLOFENAC SODIUM GEL 100 GM TUBE TOPICAL SCH ×4 (02:36→16:39)
[2023-10-14 05:51] LABS: Glucose,Whole Blood 170 mg/dL (70-110)
[2023-10-14] MEDS: INSULIN ASPART (NovoLOG) 100 UNIT/ML VIAL SQ SCH ×3 (05:51→16:39)
[2023-10-14] MEDS: LINAGLIPTIN 5 MG TABLET PO SCH (09:23)
[2023-10-14] MEDS: droNABinol 2.5 MG CAP PO SCH (09:23)
[2023-10-14] MEDS: APIXABAN 5 MG TAB PO SCH (09:23)
[2023-10-14] MEDS: LACTULOSE 20 GM/30 ML CUP PO SCH ×2 (09:23→09:48)
[2023-10-14] MEDS: FAMOTIDINE 20 MG TAB PO SCH (09:23)
[2023-10-14] MEDS: SENNOSIDES-DOCUSATE SODIUM 1 EACH TAB PO SCH (09:23)
[2023-10-14] MEDS: GABAPENTIN 100 MG CAP PO SCH (09:23)
[2023-10-14] MEDS: ASCORBIC ACID 500 MG TAB PO SCH (09:23)
[2023-10-14] MEDS: METOPROLOL TARTRATE 25 MG TAB PO SCH ×2 (09:23→16:39)
[2023-10-14] MEDS: polyethylene glycoL 3350 17 GM POWD.PACK PO SCH ×2 (09:23→09:29)
[2023-10-14] MEDS: INSULIN DETEMIR (LEVEMIR) 100 UNIT/ML SYR SQ SCH (09:24)
[2023-10-14] MEDS: MULTIVITAMINS, THERA 1 EACH TAB PO SCH ×2 (09:26→09:48)
[2023-10-14] MEDS: HYDROcodone/APAP 5-325MG 1 EACH TAB PO PRN (09:26)
[2023-10-14 11:30] LABS: Glucose,Whole Blood 166 mg/dL (70-110)
--- NOTE | 2023-10-14 13:14 | P.DS ---
Providers Date of admission: 10/09/23 10:38 Expected date of discharge: 10/14/23 Attending physician: Edgar Zuñiga Consults: 10/08/23 12:29 Consult Physician Routine Consulting Provider: Monika Cotto Consult Reason/Comments: sacral wound, antibiotic management Do you want consulting provider notified?: Yes 10/10/23 17:18 Consult Physician Routine Consulting Provider: Molina Mccormick Consult Reason/Comments: assess the need for anticoagulation with Doppler ultrasound results Do you want consulting provider notified?: Yes Primary care physician: Phoebe Cotto [place] [facility] Course: 77-year-old patient, at rehab at [facility]. Being followed by Dr. Mijares. Chronic stable medical conditions includes dementia, diabetes, hypertension, osteoarthritis, bipolar. June 2023 patient was sent to [facility] where patient was found to have discitis in the lumbar area. - surgery for the same and rods in the spine. - come back to rehab. change in mental status patient is sent back to [facility] again. Patient had been septic. Started on IV Zosyn. started off with bedsores that has progressively gotten worse. Local wound care has continued. As a sacral decubiti this became larger patient sent back to the ER on July [id number]. As per the granddaughter they'll prefer to have treatment done here and not [place] if that can be avoided. Patient subsequently went wound debridement. Patient and family declined colostomy. Patient is discharged with PICC line and IV Zosyn,eraxis. Patient at [facility]. Reported a fever of 100.8. And the POA requested the patient to be larger at [facility]. Patient is able to answer simple questions has underlying cognitive impairment. Hungry. Wound VAC in place. Both surgical team and ID consulted. Patient does complain of pain at the sacral decubitus site. 10/09/2023: Patient is seen by wound care team Dr. mccallum. Wound VAC to continue. I spoke to patient's son Kai over the phone. Because of cultures pending and further evaluation patient has been made inpatient. Patient is picky about her diet. Told the nurse to have the family, come in during meal times to encourage oral intake. 10/10/2023: Late yesterday of this consult with the family about mental status changes. Computed tomography scan of the brain without contrast was negative for any stroke. Patient's other picky about food. On antibiotics. Discussed with Dr. Griffith from ID.. Wound appears to be healing well. Antiemetics can be discontinued. PICC line to be discontinued. With a small thrombus reported in the lower extremity. Along the right PICC line. We'll consult vascular for that. In regards to anticoagulation. 10/11/2023: Comfortable. Eating well this morning. Antibiotics discontinued. PICC line discontinued. Discussed with Dr. Cobb from vascular. Continue eliquis. Follow-up with them. Also spoke to patient's son Kai over the phone. Updated. Patient is pending authorization to go back to [facility]. 10/12/2023: Patient seen and evaluated bedside, patient is alert per nursing Center patient refusing medication, patient counseled regarding medication compl iance. Plan to discharge to rehab once authorization approved 10/13/2023: Patient seen and evaluated bedside patient is sleeping however easily arousable denies of any acute issues .patient to be discharged to rehab facility 10/14/2023: Patient seen and evaluated bedside, patient is alert and following commands, patient to be discharged to rehab Ortho proved seen by infectious disease. For discharge GENERAL: In bed, comfortable EYES: Pupils equal. Conjunctiva normal. HEENT: External appearance of nose and ears normal, oral cavity grossly normal. NECK: JVD not raised; masses not palpable. HEART: S1, S2 rate is controlled LUNGS: Respiratory rate normal; clear to auscultation. ABDOMEN: Soft, nontender, liver spleen not palpable, no masses palpable. [place] PSYCH: Able to answer simple questions. DERMATOLOGICAL: Sacral decubitus ulcer with: Wound VAC MUSCULOSKELETAL:No Clubbing/cyanosis;muscles-grossly intact Assessment: Assessment and plan: * Stage IV large sacral decubitus ulcer. Wound culture positive for Pseudomonas on last admission. Patient presents with a temperature 100.8.-Rule out acute exacerbation * Consulted: ID Dr. Cotto. Surgery Dr. Atwood. Wound care team. * Antibiotics discontinued. It was felt the patient's wound has healing well. * As per patient wishes and the son no diverting colostomy-on last admission. * Debridement care by Dr. Nguyen * Wound VAC in place * Discussed with ID. No evidence of acute infection. Stop antibiotics. DC PICC line. * Acute small thrombus in the lower axillary vein along the right PICC line. * DC PICC line. Consult Dr. Cobb. Continue eliquis.. * Normocytic anemia of chronic disease: * Chronic medical debility. * Chronic constipation >> MiraLAX, senna plus, lactulose * Diabetes mellitus type 2 >> Januvia. Lantus Follow Accu-Cheks with sliding scale * Essential hypertension >> Lopressor 25 mg twice a day * Cognitive impairment Patient Condition at Discharge: Fair Plan - Discharge Summary Discharge Rx Participant: Yes New Discharge Prescriptions: Continue 0.9 % Sodium Chloride [Sodium Chloride Flush] 10 ml IV Q6H Apixaban [Eliquis] 5 mg PO BID Multivitamins, Thera [Multivitamin (formulary)] 1 tab PO DAILY Famotidine [Pepcid] 20 mg PO DAILY Lactulose 20 gm PO DAILY Cholecalciferol [Vitamin D3 (25 Mcg = 1000 Iu)] 25 mcg PO DAILY Ascorbic Acid [Vitamin C] 250 mg PO DAILY haloperidoL [Haldol] 2.5 mg PO HS #3 tab Brandan Packet 1 packet PO AC-BID Prostat 30 ml PO BID INSULIN LISPRO (HumaLOG) [humaLOG] See Protocol SQ AC-TID droNABinol [Marinol] 2.5 mg PO BID #6 cap HYDROcodone/APAP 5-325MG [Terry 5-325] 1 tab PO Q4HR PRN #18 tab PRN Reason: Pain Magnesium Hydroxide [Milk of Magnesia] 2,400 mg PO Q72H PRN PRN Reason: Constipation Benztropine Mesylate [Cogentin] 2 mg PO HS sitaGLIPtin [Januvia] 50 mg PO DAILY Ferrous Sulfate [Iron] 325 mg PO DAILY Sennosides/Docusate Sodium [Senna Plus 8.6-50 mg Tablet] 1 tab PO BID polyethylene glycoL 3350 [Miralax] 17 gm PO BID Acetaminophen Tab [Tylenol] 500 mg PO Q6HR PRN tab PRN Reason: Fever And/ Or Pain Metoprolol Tartrate [Lopressor] 25 mg PO TID #0 Diclofenac Sodium Gel [Voltaren 1% Gel] 2 gm TOPICAL Q6H Healthshake 1 dose PO TID-W/MEALS Benzocaine/Menthol [Cepacol Sore Throat Lozenge] 1 lozenge MM Q4H PRN PRN Reason: cough/sore throat Insulin Glargine,Hum.rec.anlog [Lantus Solostar Pen] 10 units SQ DAILY Gabapentin [Neurontin] 100 mg PO BID #6 cap Discontinued Piperacillin-Tazobactam [Zosyn] 3.375 gm IVPB Q8HR #120 each Discharge Medication List 0.9 % Sodium Chloride [Sodium Chloride Flush] 10 ml IV Q6H 07/29/23 [History] Apixaban [Eliquis] 5 mg PO BID 07/29/23 [History] Ascorbic Acid [Vitamin C] 250 mg PO DAILY 07/29/23 [History] Benztropine Mesylate [Cogentin] 2 mg PO HS 07/29/23 [History] Cholecalciferol [Vitamin D3 (25 Mcg = 1000 Iu)] 25 mcg PO DAILY 07/29/23 [History] Famotidine [Pepcid] 20 mg PO DAILY 07/29/23 [History] Ferrous Sulfate [Iron] 325 mg PO DAILY 07/29/23 [History] Lactulose 20 gm PO DAILY 07/29/23 [History] Magnesium Hydroxide [Milk of Magnesia] 2,400 mg PO Q72H PRN 07/29/23 [History] Multivitamins, Thera [Multivitamin (formulary)] 1 tab PO DAILY 07/29/23 [History] Sennosides/Docusate Sodium [Senna Plus 8.6-50 mg Tablet] 1 tab PO BID 07/29/23 [History] polyethylene glycoL 3350 [Miralax] 17 gm PO BID 07/29/23 [History] sitaGLIPtin [Januvia] 50 mg PO DAILY 07/29/23 [History] Acetaminophen Tab [Tylenol] 500 mg PO Q6HR PRN tab 08/09/23 [Rx] Metoprolol Tartrate [Lopressor] 25 mg PO TID #0 08/09/23 [Rx] haloperidoL [Haldol] 2.5 mg PO HS #3 tab 08/09/23 [Rx] Diclofenac Sodium Gel [Voltaren 1% Gel] 2 gm TOPICAL Q6H 08/15/23 [History] Brandan Packet 1 packet PO AC-BID 08/15/23 [History] Benzocaine/Menthol [Cepacol Sore Throat Lozenge] 1 lozenge MM Q4H PRN 10/08/23 [History] Healthshake 1 dose PO TID-W/MEALS 10/08/23 [History] INSULIN LISPRO (HumaLOG) [humaLOG] See Protocol SQ AC-TID 10/08/23 [History] Insulin Glargine,Hum.rec.anlog [Lantus Solostar Pen] 10 units SQ DAILY 10/08/23 [History] Prostat 30 ml PO BID 10/08/23 [History] Gabapentin [Neurontin] 100 mg PO BID #6 cap 10/11/23 [Rx] HYDROcodone/APAP 5-325MG [Terry 5-325] 1 tab PO Q4HR PRN #18 tab 10/11/23 [Rx] droNABinol [Marinol] 2.5 mg PO BID #6 cap 10/11/23 [Rx] Follow up Appointment(s)/Referral(s): Maykel Mijares DO [STAFF PHYSICIAN] - 1-2 Days [facility], [NON-STAFF] - As Needed Molina Mccormick MD [STAFF PHYSICIAN] - 2 Weeks Activity/Diet/Wound Care/Special Instructions: Wound care orders from surgery. Follow up with wound care center. Discharge Disposition: TRANSFER TO SNF/ECF
[2023-10-14 15:14] VITALS: BP 116/64; PULSE 77; RESP 17; TEMP 96.4
[2023-10-14 16:32] LABS: Glucose,Whole Blood 229 mg/dL (70-110)
== END 2023-10-14 17:38 | DRG 314 ==
LOC: EC 19:18 → 6NMEDSUR 23:37 → 1SOBS 10-08 20:31 → OBSVTOIN 10-09 10:38 → 4SSUR 10-09 17:10
PROVIDERS: ADMIT Hospitalist; ATTEND Hospitalist
DX: T82.868A Thrombosis due to vascular prosthetic devices, implants and grafts, initial encounter (principal); L89.154 Pressure ulcer of sacral region, stage 4; M46.28 Osteomyelitis of vertebra, sacral and sacrococcygeal region; I82.A11 Acute embolism and thrombosis of right axillary vein; D63.8 Anemia in other chronic diseases classified elsewhere; R50.9 Fever, unspecified; I10 Essential (primary) hypertension; E11.69 Type 2 diabetes mellitus with other specified complication; M46.46 Discitis, unspecified, lumbar region; F31.9 Bipolar disorder, unspecified; K59.00 Constipation, unspecified; F41.1 Generalized anxiety disorder; K59.09 Other constipation; Z79.01 Long term (current) use of anticoagulants; Z79.4 Long term (current) use of insulin; Z79.84 Long term (current) use of oral hypoglycemic drugs; Y84.8 Other medical procedures as the cause of abnormal reaction of the patient, or of later complication, without mention of misadventure at the time of the procedure; Z11.52 Encounter for screening for COVID-19; Z86.73 Personal history of transient ischemic attack (TIA), and cerebral infarction without residual deficits; M19.90 Unspecified osteoarthritis, unspecified site; Z79.899 Other long term (current) drug therapy; Z86.718 Personal history of other venous thrombosis and embolism; Z66 Do not resuscitate; Z88.0 Allergy status to penicillin
CPT/HCPCS: 36415; 70450; 71046; 80053; 80202; 81003; 82565; 83605; 85025; 85610; 85652; 85730; 86140; 87040; 87636; 93005; 96361; 96365; 96366; 99285

== ENCOUNTER 2023-11-06 13:07 | Observation (INO) | payer MEDICARE ==
--- NOTE | 2023-11-06 14:03 | ED ---
Weakness HPI - General Chief complaint: Urogenital Stated complaint: UTI Time Seen by Provider: 11/06/23 13:24 Source: patient, RN notes reviewed, old records reviewed, Caregiver Mode of arrival: wheelchair Limitations: no limitations - History of Present Illness Initial comments: This is a 77-year-old female of a poor historian who presents with family member today. Patient passed with family member in regards to change in urinary output, change in urine consistency as it was significantly purulent today per the daughter. Patient is also been increasingly weak with altered mental status and having nausea and vomiting. Patient has not been feeling well for a few days per family, does have wound VAC which does appear to be working MD Complaint: generalized weakness, lack of energy, difficulty walking -: days(s) Location: generalized Severity: severe Severity scale (1-10): 10 Consistency: constant Improves with: none Worsens with: none Context: history of similar Associated Symptoms: confusion, nausea/vomiting - Related Data Home Medications Medication Instructions Recorded Confirmed Apixaban [Eliquis] 5 mg PO BID 07/29/23 11/06/23 Ascorbic Acid [Vitamin C] 250 mg PO DAILY 07/29/23 11/06/23 Benztropine Mesylate [Cogentin] 2 mg PO HS 07/29/23 11/06/23 Cholecalciferol [Vitamin D3 (25 25 mcg PO DAILY 07/29/23 11/06/23 Mcg = 1000 Iu)] Famotidine [Pepcid] 20 mg PO DAILY 07/29/23 11/06/23 Ferrous Sulfate [Iron] 325 mg PO DAILY 07/29/23 11/06/23 Lactulose 20 gm PO DAILY PRN 07/29/23 11/06/23 Multivitamins, Thera [Multivitamin 1 tab PO DAILY 07/29/23 11/06/23 (formulary)] Sennosides/Docusate Sodium [Senna 1 tab PO BID 07/29/23 11/06/23 Plus 8.6-50 mg Tablet] polyethylene glycoL 3350 [Miralax] 17 gm PO BID 07/29/23 11/06/23 sitaGLIPtin [Januvia] 50 mg PO DAILY 07/29/23 11/06/23 Diclofenac Sodium Gel [Voltaren 1% 2 gm TOPICAL Q6H 08/15/23 11/06/23 Gel] INSULIN LISPRO (HumaLOG) [humaLOG] See Protocol SQ AC-TID 10/08/23 11/06/23 Insulin Glargine,Hum.rec.anlog 10 units SQ DAILY 10/08/23 11/06/23 [Lantus Solostar Pen] Previous Rx's Medication Instructions Recorded Acetaminophen Tab [Tylenol] 500 mg PO Q6HR PRN tab 08/09/23 Metoprolol Tartrate [Lopressor] 25 mg PO TID #0 08/09/23 haloperidoL [Haldol] 2.5 mg PO HS #3 tab 08/09/23 Gabapentin [Neurontin] 100 mg PO BID #6 cap 10/11/23 Cefdinir [Omnicef] 300 mg PO Q12HR #4 capsule 11/11/23 HYDROcodone/APAP 5-325MG [[place] 1 tab PO Q4HR PRN #18 tab 11/11/23 5-325] droNABinol [Marinol] 2.5 mg PO BID #6 cap 11/11/23 Allergies Allergy/AdvReac Type Severity Reaction Status Date / Time metformin Allergy Unknown Verified 11/06/23 15:34 Sulfa (Sulfonamide Allergy Unknown Verified 11/06/23 15:34 Antibiotics) Review of Systems ROS Statement: Those systems with pertinent positive or pertinent negative responses have been documented in the HPI. ROS Other: All systems not noted in ROS Statement are negative. Past Medical History Past Medical History: CVA/TIA, Dementia, Diabetes Mellitus, Hypertension, Osteoarthritis (OA) Additional Past Medical History / Comment(s): Pt states she is on an antibiotic for ear infection/throat infection at this time, TIA which affected speech, pt denies HTN but it is documented in past medical hx, diet controlled diabetes History of Any Multi-Drug Resistant Organisms: None Reported Past Surgical History: Orthopedic Surgery Additional Past Surgical History / Comment(s): I&D tooth abscess, left trigger finger surgery Past Anesthesia/Blood Transfusion Reactions: No Reported Reaction Past Psychological History: Anxiety, Bipolar, Depression Smoking Status: Never smoker Past Alcohol Use History: None Reported Past Drug Use History: None Reported - Past Family History Father Family Medical History: No Reported History Mother Family Medical History: No Reported History General Exam Limitations: no limitations General appearance: alert, in no apparent distress, anxious Head exam: Present: atraumatic, normocephalic, normal inspection Eye exam: Present: normal appearance, PERRL, EOMI. Absent: scleral icterus, conjunctival injection, periorbital swelling ENT exam: Present: normal exam, mucous membranes moist Neck exam: Present: normal inspection. Absent: tenderness, meningismus, lymphadenopathy Respiratory exam: Present: normal lung sounds bilaterally. Absent: respiratory distress, wheezes, rales, rhonchi, stridor Cardiovascular Exam: Present: regular rate, normal rhythm, normal heart sounds. Absent: systolic murmur, diastolic murmur, rubs, gallop, clicks GI/Abdominal exam: Present: soft, normal bowel sounds. Absent: distended, tenderness, guarding, rebound, rigid Extremities exam: Present: normal inspection, full ROM, normal capillary refill. Absent: tenderness, pedal edema, joint swelling, calf tenderness Back exam: Present: normal inspection Neurological exam: Present: alert, oriented X3, CN II-XII intact Psychiatric exam: Present: normal affect, normal mood Skin exam: Present: warm, dry, intact, normal color. Absent: rash Course Vital Signs 11/06/23 11/06/23 11/06/23 13:19 15:15 17:27 Temperature 98.1 F Pulse Rate 77 76 80 Respiratory 20 20 Rate Blood Pressure 154/78 186/92 169/76 O2 Sat by Pulse 98 Oximetry 11/06/23 18:15 Temperature Pulse Rate 79 Respiratory 20 Rate Blood Pressure 190/97 O2 Sat by Pulse 96 Oximetry - Reevaluation(s) Reevaluation #1: 11/06/23 15:59 Medical records reviewed Reevaluation #2: 11/06/23 15:59 Patient symptoms unchanged, patient is actively vomiting here in the ER 11/06/23 15:59 Patient is still having severe back pain Reevaluation #3: 11/06/23 15:59 Patient informed of results and questions answered Reevaluation #4: 11/06/23 15:59 Was pt. sent in by a medical professional or institution (, PA, RAILROAD SHOP INSPECTOR, urgent care, hospital, or custodial...) When possible be specific @ -no Did you speak to anyone other than the patient for history (EMS, parent, family, police, friend...)? What history was obtained from this source @ -no Did you review nursing and triage notes (agree or disagree)? Why? @ -agree Are old charts reviewed (outside hosp., previous admission, EMS record, old EKG, old radiological studies, urgent care reports/EKG's, custodial records)? Report findings @ -yes Differential Diagnosis (chest pain, altered mental status, abdominal pain women, abdominal pain men, vaginal bleeding, weakness, fever, dyspnea, syncope, headache, dizziness, GI bleed, back pain, seizure, CVA, palpatations, mental health, musculoskeletal)? @ -prior EKG interpreted by me (3pts min.). @ -yes X-rays interpreted by me (1pt min.). @ -no CT interpreted by me (1pt min.). @ -no U/S interpreted by me (1pt. min.). @ -no What testing was considered but not performed or refused? (CT, X-rays, U/S, labs)? Why? @ -none What meds were considered but not given or refused? Why? @ -none Did you discuss the management of the patient with other professionals (professionals i.e. , PA, RAILROAD SHOP INSPECTOR, lab, RT, psych nurse, social work instructor, senior net c developer, teacher, housing management officer, binder caser)? Give summary @ -no Was smoking cessation discussed for >3mins.? @ -no Was critical care preformed (if so, how long)? @ -no Were there social determinants of health that impacted care today? How? (Homelessness, low income, unemployed, alcoholism, drug addiction, transportation, low edu. Level, literacy, decrease access to med. care, half-way, rehab)? @ -none Was there de-escalation of care discussed even if they declined (Discuss DNR or withdrawal of care, Hospice)? DNR status @ -no What co-morbidities impacted this encounter? (DM, HTN, Smoking, COPD, CAD, Cancer, CVA, ARF, Chemo, Hep., AIDS, mental health diagnosis, sleep apnea, morbid obesity)? @ -none Was patient admitted / discharged? Hospital course, mention meds given and route, prescriptions, significant lab abnormalities, going to OR and other pertinent info. @ - 77 female will be admitted for evaluation of severe back pain with urinary tract infection purulent cystitis. Patient will be admitted on IV antibiotics Admitted Undiagnosed new problem with uncertain prognosis? @ -no Drug Therapy requiring intensive monitoring for toxicity (Heparin, Nitro, Insulin, Cardizem)? @ -no Were any procedures done? @ -no Diagnosis/symptom? @ -UTI weakness Acute, or Chronic, or Acute on Chronic? @ -Acute Uncomplicated (without systemic symptoms) or Complicated (systemic symptoms)? @ -Complicated Side effects of treatment? @ -no Exacerbation, Progression, or Severe Exacerbation? @ -exacerbation Poses a threat to life or bodily function? How? (Chest pain, [place], [place], pneumonia, PE, COPD, DKA, ARF, appy, cholecystitis, CVA, Diverticulitis, Homicidal, Suicidal, threat to staff... and all critical care pts) @ -yes UTI with extremes of age Reevaluation #5: 11/06/23 15:59 Differential Weakness: Hypoglycemia, shock, sepsis, hyponatremia, anemia, infection, [place], ETOH, adverse medicine reaction, overdose, stroke, this is not meant to be an all-inclusive list. Differential Back Pain: Strain, zoster, cauda equina syndrome, epidural abscess, vertebral osteom yelitis, discitis, fracture, subluxation, disc herniation, DJD, spinal stenosis, dissection, AAA, pancreatitis, peptic ulcer disease, pyelonephritis, kidney stone, this is not meant to be an all-inclusive list. - Consultations Consultation #1: Spoke with sound who agrees to admit this patient EKG Findings - EKG Comments: EKG Findings:: EKG is sinus 75 [place] 174 QRS 87 QTc 362 - EKG Results: EKG: interpreted by APOORVA Medical Decision Making - Medical Decision Making 77 female will be admitted for evaluation of severe back pain with urinary tract infection purulent cystitis. Patient will be admitted on IV antibiotics - Lab Data Result diagrams: 11/07/23 05:09 11/07/23 05:09 Lab Results 11/06/23 11/06/23 11/06/23 Range/Units 14:21 14:21 14:21 WBC 7.2 (3.8-10.6) k/uL RBC 3.73 L (3.80-5.40) m/uL Hgb 11.4 (11.4-16.0) gm/dL Hct 34.3 (34.0-46.0) % MCV 92.0 (80.0-100.0) fL MCH 30.7 (25.0-35.0) pg MCHC 33.3 (31.0-37.0) g/dL RDW 15.5 (11.5-15.5) % Plt Count 284 (150-450) k/uL MPV 7.8 Neutrophils % 53 % Lymphocytes % 39 % Monocytes % 4 % Eosinophils % 1 % Basophils % 0 % Neutrophils # 3.8 (1.3-7.7) k/uL Lymphocytes # 2.8 (1.0-4.8) k/uL Monocytes # 0.3 (0-1.0) k/uL Eosinophils # 0.1 (0-0.7) k/uL Basophils # 0.0 (0-0.2) k/uL Hypochromasia Slight PT 11.5 (10.0-12.5) sec INR 1.1 (<1.2) APTT 25.8 (22.0-30.0) sec Sodium (137-145) mmol/L Potassium (3.5-5.1) mmol/L Chloride (98-107) mmol/L Carbon Dioxide (22-30) mmol/L Anion Gap mmol/L BUN (7-17) mg/dL Creatinine (0.52-1.04) mg/dL Est GFR (CKD-EPI)AfAm (>60 ml/min/1.73 sqM) Est GFR (CKD-EPI)NonAf (>60 ml/min/1.73 sqM) Glucose (74-99) mg/dL Plasma Lactic Acid John (0.7-2.0) mmol/L Calcium (8.4-10.2) mg/dL Phosphorus (2.5-4.5) mg/dL Magnesium (1.6-2.3) mg/dL Total Bilirubin (0.2-1.3) mg/dL AST (14-36) U/L ALT (4-34) U/L Alkaline Phosphatase (38-126) U/L Troponin I (0.000-0.034) ng/mL NT-Pro-B Natriuret Pep pg/mL Total Protein (6.3-8.2) g/dL Albumin (3.5-5.0) g/dL Urine Color Light Yellow Urine Appearance Turbid H (Clear) Urine pH 8.0 (5.0-8.0) Ur Specific [place] 1.013 (1.001-1.035) Urine Protein 1+ H (Negative) Urine Glucose (UA) Negative (Negative) Urine Ketones Negative (Negative) Urine Blood Small H (Negative) Urine Nitrite Negative (Negative) Urine Bilirubin Negative (Negative) Urine Urobilinogen <2.0 (<2.0) mg/dL Ur Leukocyte Esterase Large H (Negative) Urine RBC 11 H (0-5) /hpf Urine WBC 182 H (0-5) /hpf Ur Squamous Epith Cells <1 (0-4) /hpf Calcium Oxalate Crystal Rare H (None) /hpf 11/06/23 11/06/23 11/06/23 Range/Units 14:21 14:21 14:21 WBC (3.8-10.6) k/uL RBC (3.80-5.40) m/uL Hgb (11.4-16.0) gm/dL Hct (34.0-46.0) % MCV (80.0-100.0) fL MCH (25.0-35.0) pg MCHC (31.0-37.0) g/dL RDW (11.5-15.5) % Plt Count (150-450) k/uL MPV Neutrophils % % Lymphocytes % % Monocytes % % Eosinophils % % Basophils % % Neutrophils # (1.3-7.7) k/uL Lymphocytes # (1.0-4.8) k/uL Monocytes # (0-1.0) k/uL Eosinophils # (0-0.7) k/uL Basophils # (0-0.2) k/uL Hypochromasia PT (10.0-12.5) sec INR (<1.2) APTT (22.0-30.0) sec Sodium 141 (137-145) mmol/L Potassium 3.6 (3.5-5.1) mmol/L Chloride 111 H (98-107) mmol/L Carbon Dioxide 21 L (22-30) mmol/L Anion Gap 9 mmol/L BUN 17 (7-17) mg/dL Creatinine 0.47 L (0.52-1.04) mg/dL Est GFR (CKD-EPI)AfAm >90 (>60 ml/min/1.73 sqM) Est GFR (CKD-EPI)NonAf >90 (>60 ml/min/1.73 sqM) Glucose 127 H (74-99) mg/dL Plasma Lactic Acid John 1.0 (0.7-2.0) mmol/L Calcium 9.3 (8.4-10.2) mg/dL Phosphorus 3.8 (2.5-4.5) mg/dL Magnesium 1.8 (1.6-2.3) mg/dL Total Bilirubin 0.6 (0.2-1.3) mg/dL AST 29 (14-36) U/L ALT 19 (4-34) U/L Alkaline Phosphatase 123 (38-126) U/L Troponin I <0.012 (0.000-0.034) ng/mL NT-Pro-B Natriuret Pep 376 pg/mL Total Protein 9.1 H (6.3-8.2) g/dL Albumin 3.6 (3.5-5.0) g/dL Urine Color Urine Appearance (Clear) Urine pH (5.0-8.0) Ur Specific [place] (1.001-1.035) Urine Protein (Negative) Urine Glucose (UA) (Negative) Urine Ketones (Negative) Urine Blood (Negative) Urine Nitrite (Negative) Urine Bilirubin (Negative) Urine Urobilinogen (<2.0) mg/dL Ur Leukocyte Esterase (Negative) Urine RBC (0-5) /hpf Urine WBC (0-5) /hpf Ur Squamous Epith Cells (0-4) /hpf Calcium Oxalate Crystal (None) /hpf - EKG Data -: EKG Interpreted by Me Disposition Clinical Impression: General weakness, Urinary tract infection, Stage IV pressure ulcer of sacral region, Altered mental status Disposition: ADMITTED IP TO THIS HOSP Is patient prescribed a controlled substance at d/c from ED?: No Time of Disposition: 16:00
[2023-11-06 14:33] LABS: Basophils % (A) 0 %; Eosinophils # (A) 0.1 k/uL (0-0.7); Eosinophils % (A) 1 %; HCT 34.3 % (34.0-46.0); HGB 11.4 gm/dL (11.4-16.0); Hypochromasia Slight; Lymphocytes # (A) 2.8 k/uL (1.0-4.8); Lymphocytes % (A) 39 %; MCH 30.7 pg (25.0-35.0); MCHC 33.3 g/dL (31.0-37.0); Mean Platelet Volume 7.8; Monocytes # (A) 0.3 k/uL (0-1.0); Monocytes % (A) 4 %; Neutrophils # (A) 3.8 k/uL (1.3-7.7); Neutrophils % (A) 53 %; Platelet Count 284 k/uL (150-450); RBC 3.73 m/uL (3.80-5.40); RDW 15.5 % (11.5-15.5); WBC 7.2 k/uL (3.8-10.6)
[2023-11-06 14:44] LABS: INR 1.1 (<1.2); Partial Thromboplastin Time 25.8 sec (22.0-30.0); Prothrombin Time 11.5 sec (10.0-12.5)
[2023-11-06 14:52] LABS: ALT 19 U/L (4-34); AST 29 U/L (14-36); African American GFR (CKD) >90 (>60 ml/min/1.73 sqM); Albumin 3.6 g/dL (3.5-5.0); Alkaline Phosphatase 123 U/L (38-126); Anion Gap 9 mmol/L; Blood Urea Nitrogen 17 mg/dL (7-17); Calcium 9.3 mg/dL (8.4-10.2); Carbon Dioxide 21 mmol/L (22-30); Chloride 111 mmol/L (98-107); Glucose 127 mg/dL (74-99); Magnesium 1.8 mg/dL (1.6-2.3); Non-African American GFR(CKD) >90 (>60 ml/min/1.73 sqM); Phosphorus 3.8 mg/dL (2.5-4.5); Potassium 3.6 mmol/L (3.5-5.1); Sodium 141 mmol/L (137-145); Total Bilirubin 0.6 mg/dL (0.2-1.3); Total Protein 9.1 g/dL (6.3-8.2)
[2023-11-06] MEDS: SODIUM CHLORIDE 0.9% 1,000 ML IV STA (14:52)
[2023-11-06] MEDS: HYDROmorphone 1 MG/ML 1 ML SYRINGE IVP STA (14:54)
[2023-11-06 14:59] LABS: NT-Pro-B-Type Natriuretic Pept 376 pg/mL
[2023-11-06 15:32] LABS: Appearance,Urine Turbid (Clear); Bilirubin,Urine Negative (Negative); Blood,Urine Small (Negative); Calcium Oxalate Crystals,Urine Rare /hpf; Color,Urine Light Yellow; Glucose,Urine (UA) Negative (Negative); Ketones,Urine Negative (Negative); Leukocyte Esterase,Urine Large (Negative); Nitrite,Urine Negative (Negative); Protein,Urine 1+ (Negative); RBC,Urine 11 /hpf (0-5); Specific Gravity,Urine 1.013 (1.001-1.035); Squamous Epithelial Cell,Urine <1 /hpf (0-4); Urobilinogen,Urine <2.0 mg/dL (<2.0); WBC,Urine 182 /hpf (0-5)
[2023-11-06] MEDS ORDERED: NALOXONE 0.4 MG/ML 1 ML VIAL IV PRN (15:56)
[2023-11-06] MEDS: SODIUM CHLORIDE 0.9% 1,000 ML IV SCH (17:26)
[2023-11-06] MEDS: ONDANSETRON 4 MG/2 ML VIAL IVP PRN (17:27)
[2023-11-06] MEDS ORDERED: ACETAMINOPHEN TAB 500 MG TAB PO PRN (19:20)
[2023-11-06] MEDS ORDERED: LACTULOSE 20 GM/30 ML CUP PO PRN (19:22)
[2023-11-06] MEDS ORDERED: DEXTROSE 50% SYRINGE 50 ML IVP PRN ×2 (19:23)
[2023-11-06] MEDS ORDERED: CALCIUM CARBONATE 500 MG CHEWABLE PO PRN (19:24)
[2023-11-06] MEDS ORDERED: ALPRAZolam 0.25 MG TAB PO PRN (19:24)
[2023-11-06] MEDS ORDERED: TEMAZEPAM 15 MG CAP PO PRN (19:24)
[2023-11-06] MEDS: DICLOFENAC SODIUM GEL 100 GM TUBE TOPICAL SCH (23:57)
[2023-11-06] MEDS: haloperidoL 5 MG TAB PO SCH (23:58)
[2023-11-06] MEDS: METOPROLOL TARTRATE 25 MG TAB PO SCH (23:58)
[2023-11-06] MEDS: APIXABAN 5 MG TAB PO SCH (23:58)
[2023-11-06] MEDS: BENZTROPINE MESYLATE 1 MG TAB PO SCH (23:58)
[2023-11-06] MEDS: droNABinol 2.5 MG CAP PO SCH (23:58)
[2023-11-06] MEDS: GABAPENTIN 100 MG CAP PO SCH (23:58)
[2023-11-06] MEDS: polyethylene glycoL 3350 17 GM POWD.PACK PO SCH (23:59)
[2023-11-06] MEDS: SENNOSIDES-DOCUSATE SODIUM 1 EACH TAB PO SCH (23:59)
[2023-11-07] MEDS: ASCORBIC ACID 500 MG TAB PO SCH (07:36)
[2023-11-07] MEDS: MULTIVITAMINS, THERA 1 EACH TAB PO SCH (07:36)
[2023-11-07] MEDS: FERROUS SULFATE 325 MG TAB PO SCH (07:37)
[2023-11-07] MEDS: CHOLECALCIFEROL 25 MCG (1000 IU) TABLET PO SCH (07:37)
[2023-11-07] MEDS: FAMOTIDINE 20 MG TAB PO SCH (07:37)
[2023-11-07] MEDS: LINAGLIPTIN 5 MG TABLET PO SCH (07:37)
[2023-11-07] MEDS: INSULIN DETEMIR (LEVEMIR) 100 UNIT/ML SYR SQ SCH (08:01)
[2023-11-07 08:02] LABS: Glucose,Whole Blood 115 mg/dL (70-110)
[2023-11-07] MEDS: INSULIN ASPART (NovoLOG) 100 UNIT/ML VIAL SQ SCH (08:08)
[2023-11-07] MEDS: PANTOPRAZOLE 40 MG/10 ML VIAL IV SCH (08:19)
[2023-11-07 08:37] LABS: Basophils # (A) 0.01 X 10*3/uL (0.00-0.10); Basophils % (A) 0.1 %; Eosinophils # (A) 0.12 X 10*3/uL (0.04-0.35); Eosinophils % (A) 1.7 %; HCT 29.2 % (37.2-46.3); HGB 9.2 g/dL (12.0-15.0); Lymphocytes # (A) 3.14 X 10*3/uL (0.90-5.00); Lymphocytes % (A) 45.6 %; MCH 29.1 pg (27.0-32.0); MCHC 31.5 g/dL (32.0-37.0); MCV 92.4 FL (80.0-97.0); Mean Platelet Volume 9.3 FL (9.5-12.2); Monocytes # (A) 0.56 X 10*3/uL (0.20-1.00); Monocytes % (A) 8.1 %; NRBC Per 100 WBC 0 X 10*3/uL (0.00-0.01); Neutrophils # (A) 2.95 X 10*3/uL (1.80-7.70); Platelet Count 355 X 10*3/uL (140-440); RBC 3.16 X 10*6/uL (4.10-5.20); RDW 14.7 % (11.5-14.5); WBC 6.88 X 10*3/uL (4.50-10.00)
[2023-11-07 08:47] LABS: Blood Urea Nitrogen 9.6 mg/dL (9.0-27.0); Carbon Dioxide 22.9 mmol/L (21.6-31.8); Chloride 107 mmol/L (96-109); Glucose 101 mg/dL (70-110); Magnesium 1.7 mg/dL (1.5-2.4); Potassium 3.3 mmol/L (3.5-5.5); Sodium 141 mmol/L (135-145)
[2023-11-07 08:48] LABS: ALT 15 U/L (8-44); AST 20 U/L (13-35); Albumin 3.1 g/dL (3.8-4.9); Albumin/Globulin Ratio 0.63 Ratio (1.60-3.17); Alkaline Phosphatase 98 U/L (41-126); Calcium 9.5 mg/dL (8.7-10.3); Globulin 4.9 g/dL (1.6-3.3); Total Bilirubin 0.6 mg/dL (0.3-1.2)
[2023-11-07] MEDS: HYDROcodone/APAP 5-325MG 1 EACH TAB PO PRN (10:19)
[2023-11-07] MEDS: HYDROmorphone 1 MG/ML 1 ML SYRINGE IVP PRN (12:03)
[2023-11-07 12:04] LABS: Glucose,Whole Blood 133 mg/dL (70-110)
--- NOTE | 2023-11-07 16:54 | P.GSCN ---
History of Present Illness Consult date: 11/07/23 History of present illness: CHIEF COMPLAINT: Weakness and UTI HISTORY OF PRESENT ILLNESS: This is a 77-year-old female who is a poor historian. Apparently she presented with urinary changes found to have evidence of a UTI and also weakness. She is on antibiotics. She does have a known sacral decubitus ulcer with wound VAC. She follows up with wound care service a nd has wound care nurse that comes to her house. Her wound VAC was changed yesterday. Per family at bedside the sacral wound has been healing. Patient denies any fever chills or sweats. PAST MEDICAL HISTORY: See list. PAST SURGICAL HISTORY: See list. MEDICATIONS: See list. ALLERGIES: See list. SOCIAL HISTORY: No illicit drug use. REVIEW OF SYSTEMS: CONSTITUTIONAL: Denies fever or chills. HEENT: Denies blurred vision, vision changes, or eye pain. Denies hemoptysis ENDOCRINE: Denies heat or cold intolerance. CARDIOVASCULAR: Denies chest pain or pressure. RESPIRATORY: No shortness of breath. GASTROINTESTINAL: Denies abdominal pain. Denies nausea or vomiting. NEURO: Denies history of seizures. PSYCH: No depression or suicidal ideation HEMATOLOGIC: Denies bleeding disorders. LYMPHATIC: The patient denies any lumps and bumps around the neck. GENITOURINARY: Denies any blood in urine or increased urinary frequency. MUSCULOSKELETAL: Denies myalgias. Denies joint swelling. Denies decreased range of motion beyond patients baseline. SKIN: Denies pruitis. Denies rash. PHYSICAL EXAM: VITAL SIGNS: Reviewed GENERAL: Well-developed in no acute distress. HEENT: No sclera icterus. Extraocular movements grossly intact. Moist buccal mucosa. Head is atraumatic, normocephalic. Hears conversational speech. No nasal drainage. NECK: Supple without lymphadenopathy. CHEST: Non-labored respirations and equal bilateral excursions. CARDIOVASCULAR: Palpable 2+ radial pulses. ABDOMEN: Soft. Nondistended. Nontender MUSCULOSKELETAL: No clubbing or cyanosis. NEUROLOGIC: No focal or lateralizing signs. Cranial nerves II through XII grossly intact. PSYCH: Awake and alert SKIN: Well perfused. Good skin turgor. LABORATORY DATA: WBC 6.8 Hgb 9.2 platelets of 14.7 Sodium is 144 potassium 3.3 creatinine 0.5 Urinalysis positive IMAGING: ASSESSMENT: 1. Sacral decubitus ulcer status post debridement in July 2023 2. UTI PLAN: -Consult wound care service for wound VAC management -Recommend a high-protein diet to help promote wound healing -Start Ensure clear 3 times daily -Continue supportive care -Antibiotics for UTI Physician Mortgage Collector note has been reviewed by physician. Signing provider agrees with the documented findings, assessment, and plan of care. Past Medical History Past Medical History: CVA/TIA, Dementia, Diabetes Mellitus, Hypertension, Osteoarthritis (OA) Additional Past Medical History / Comment(s): Pt states she is on an antibiotic for ear infection/throat infection at this time, TIA which affected speech, pt denies HTN but it is documented in past medical hx, diet controlled diabetes History of Any Multi-Drug Resistant Organisms: None Reported Past Surgical History: Orthopedic Surgery Additional Past Surgical History / Comment(s): I&D tooth abscess, left trigger finger surgery Past Anesthesia/Blood Transfusion Reactions: No Reported Reaction Past Psychological History: Anxiety, Bipolar, Depression Additional Psychological History / Comment(s): Pt states she sees a Dr. Ramírez for her mental health care. She resides with her granddaughter and [address] [facility]. She does not drive. She gets to appts with family or friends or cab. uses no assistive devices. Smoking Status: Never smoker Past Alcohol Use History: None Reported Past Drug Use History: None Reported - Past Family History Father Family Medical History: No Reported History Mother Family Medical History: No Reported History Medications and Allergies Home Medications Medication Instructions Recorded Confirmed Type Apixaban [Eliquis] 5 mg PO BID 07/29/23 11/06/23 History Ascorbic Acid [Vitamin C] 250 mg PO DAILY 07/29/23 11/06/23 History Benztropine Mesylate [Cogentin] 2 mg PO HS 07/29/23 11/06/23 History Cholecalciferol [Vitamin D3 (25 25 mcg PO DAILY 07/29/23 11/06/23 History Mcg = 1000 Iu)] Famotidine [Pepcid] 20 mg PO DAILY 07/29/23 11/06/23 History Ferrous Sulfate [Iron] 325 mg PO DAILY 07/29/23 11/06/23 History Lactulose 20 gm PO DAILY PRN 07/29/23 11/06/23 History Multivitamins, Thera [Multivitamin 1 tab PO DAILY 07/29/23 11/06/23 History (formulary)] Sennosides/Docusate Sodium [Senna 1 tab PO BID 07/29/23 11/06/23 History Plus 8.6-50 mg Tablet] polyethylene glycoL 3350 [Miralax] 17 gm PO BID 07/29/23 11/06/23 History sitaGLIPtin [Januvia] 50 mg PO DAILY 07/29/23 11/06/23 History Acetaminophen Tab [Tylenol] 500 mg PO Q6HR PRN tab 08/09/23 11/06/23 Rx Metoprolol Tartrate [Lopressor] 25 mg PO TID #0 08/09/23 11/06/23 Rx haloperidoL [Haldol] 2.5 mg PO HS #3 tab 08/09/23 11/06/23 Rx Diclofenac Sodium Gel [Voltaren 1% 2 gm TOPICAL Q6H 08/15/23 11/06/23 History Gel] INSULIN LISPRO (HumaLOG) [humaLOG] See Protocol SQ AC-TID 10/08/23 11/06/23 History Insulin Glargine,Hum.rec.anlog 10 units SQ DAILY 10/08/23 11/06/23 History [Lantus Solostar Pen] Gabapentin [Neurontin] 100 mg PO BID #6 cap 10/11/23 11/06/23 Rx HYDROcodone/APAP 5-325MG [[place] 1 tab PO Q4HR PRN #18 tab 10/11/23 11/06/23 Rx 5-325] droNABinol [Marinol] 2.5 mg PO BID #6 cap 10/11/23 11/06/23 Rx Allergies Allergy/AdvReac Type Severity Reaction Status Date / Time metformin Allergy Unknown Verified 11/06/23 15:34 Sulfa (Sulfonamide Allergy Unknown Verified 11/06/23 15:34 Antibiotics) Surgical - Exam Vital Signs Temp Pulse Resp BP Pulse Ox 98.1 F 77 20 154/78 98 11/06/23 13:19 11/06/23 13:19 11/06/23 13:19 11/06/23 13:19 11/06/23 13:19 Results - Labs 11/07/23 05:09 11/07/23 05:09 Abnormal Lab Results - Last 24 Hours (Table) 11/07/23 11/07/23 11/07/23 Range/Units 05:09 05:09 08:00 RBC 3.16 L (4.10-5.20) X 10*6/uL Hgb 9.2 L (12.0-15.0) g/dL Hct 29.2 L (37.2-46.3) % MCHC 31.5 L (32.0-37.0) g/dL RDW 14.7 H (11.5-14.5) % MPV 9.3 L (9.5-12.2) FL Immature Gran # 0.10 H (0.00-0.04) X 10*3/uL Potassium 3.3 L (3.5-5.5) mmol/L Creatinine 0.5 L (0.6-1.5) mg/dL POC Glucose (mg/dL) 115 H (70-110) mg/dL Albumin 3.1 L (3.8-4.9) g/dL Globulin 4.9 H (1.6-3.3) g/dL Albumin/Globulin Ratio 0.63 L (1.60-3.17) Ratio 11/07/23 Range/Units 12:02 RBC (4.10-5.20) X 10*6/uL Hgb (12.0-15.0) g/dL Hct (37.2-46.3) % MCHC (32.0-37.0) g/dL RDW (11.5-14.5) % MPV (9.5-12.2) FL Immature Gran # (0.00-0.04) X 10*3/uL Potassium (3.5-5.5) mmol/L Creatinine (0.6-1.5) mg/dL POC Glucose (mg/dL) 133 H (70-110) mg/dL Albumin (3.8-4.9) g/dL Globulin (1.6-3.3) g/dL Albumin/Globulin Ratio (1.60-3.17) Ratio Diabetes panel 11/07/23 Range/Units 05:09 Sodium 141 (135-145) mmol/L Potassium 3.3 L (3.5-5.5) mmol/L Chloride 107 (96-109) mmol/L Carbon Dioxide 22.9 (21.6-31.8) mmol/L BUN 9.6 (9.0-27.0) mg/dL Creatinine 0.5 L (0.6-1.5) mg/dL Glucose 101 (70-110) mg/dL Calcium 9.5 (8.7-10.3) mg/dL AST 20 (13-35) U/L ALT 15 (8-44) U/L Alkaline Phosphatase 98 (41-126) U/L Total Protein 8.0 (6.2-8.2) g/dL Albumin 3.1 L (3.8-4.9) g/dL Calcium panel 11/07/23 Range/Units 05:09 Calcium 9.5 (8.7-10.3) mg/dL Phosphorus 3.0 (2.4-5.1) mg/dL Albumin 3.1 L (3.8-4.9) g/dL Pituitary panel 11/07/23 Range/Units 05:09 Sodium 141 (135-145) mmol/L Potassium 3.3 L (3.5-5.5) mmol/L Chloride 107 (96-109) mmol/L Carbon Dioxide 22.9 (21.6-31.8) mmol/L BUN 9.6 (9.0-27.0) mg/dL Creatinine 0.5 L (0.6-1.5) mg/dL Glucose 101 (70-110) mg/dL Calcium 9.5 (8.7-10.3) mg/dL Adrenal panel 11/07/23 Range/Units 05:09 Sodium 141 (135-145) mmol/L Potassium 3.3 L (3.5-5.5) mmol/L Chloride 107 (96-109) mmol/L Carbon Dioxide 22.9 (21.6-31.8) mmol/L BUN 9.6 (9.0-27.0) mg/dL Creatinine 0.5 L (0.6-1.5) mg/dL Glucose 101 (70-110) mg/dL Calcium 9.5 (8.7-10.3) mg/dL Total Bilirubin 0.6 (0.3-1.2) mg/dL AST 20 (13-35) U/L ALT 15 (8-44) U/L Alkaline Phosphatase 98 (41-126) U/L Total Protein 8.0 (6.2-8.2) g/dL Albumin 3.1 L (3.8-4.9) g/dL
[2023-11-07 17:07] LABS: Glucose,Whole Blood 126 mg/dL (70-110)
[2023-11-07] MEDS: POTASSIUM CHLORIDE ER 20 MEQ TAB.ER PO STA (17:48)
--- NOTE | 2023-11-07 19:44 | P.HPIM ---
History of Present Illness H&P Date: 11/06/23 Chief Complaint: Tired This is a 77-year-old patient, at rehab at [facility]. Being followed by Dr. Mijares. Chronic stable medical conditions includes dementia, diabetes, hypertension, osteoarthritis, bipolar. June 2023 patient was sent to [facility] where patient was found to have discitis in the lumbar area. - surgery for the same and rods in the spine. - come back to rehab. change in mental status patient is sent back to [facility] again. Patient had been septic. Started on IV Zosyn. started off with bedsores that has progressively gotten worse. Local wound care has continued. As a sacral decubiti this became larger patient sent back to the ER on July [id number]. As per the granddaughter they'll prefer to have treatment done here and not [place] if that can be avoided. Patient subsequently went wound debridement. Patient and family declined colostomy. discharged with PICC line and IV Zosyn,eraxis. Patient presented with decreased urine output. [place] to be purulent. Questionable discomfort. Patient other tired. No fever reported. Review of systems: Difficult to obtain as patient is underlying cognitive impairment. Past medical history to include: Dementia, diabetes, hypertension, osteoarthritis,, bipolar, discitis-lumbar, sacral decub is ulcer Social history: No smoking or alcohol history. Currently at rehab at [facility]. Patient's son Ar Ramírez is the POA. Physical examination: VITAL SIGNS: 98.1, 77, 20, 154/78, 98% room air GENERAL: Reclining in bed, tired EYES: Pupils equal. Conjunctiva normal. HEENT: External appearance of nose and ears normal, oral cavity grossly normal. NECK: JVD not raised; masses not palpable. HEART: First and second heart sounds are normal; no edema. LUNGS: Respiratory rate normal; clear to auscultation. ABDOMEN: Soft, nontender, liver spleen not palpable, no masses palpable. [place] PSYCH: Can answer simple questions DERMATOLOGICAL: Sacral decubitus ulcer with: Wound VAC MUSCULOSKELETAL:No Clubbing/cyanosis;muscles-grossly intact, OA NEUROLOGICAL: Cranial nerves grossly intact; no facial asymmetry, power and sensation grossly intact. LYMPHATICS: No lymph nodes palpable in the axilla and neck INVESTIGATIONS, reviewed in the clinical context: November 06: White count 7.2 hemoglobin 11.4 platelets 284 sodium 141 potassium 3.6 BUN 17 creatinine 0.47 UA: Leukoesterase positive. Nitrate negative. WBC 182 EKG tracing personally reviewed by me-normal sinus rhythm nonspecific T wave changes. Assessment and plan: -Possible UTI with cystitis IV ceftriaxone -Stage IV large sacral decubitus ulcer. Previous debridement by Dr. Atwood. Wound VAC in place As per patient wishes and the son no diverting colostomy-on last admission. Consult surgery -Normocytic anemia of chronic disease: Follow H&H -Chronic medical debility. -Chronic constipation MiraLAX, senna plus, lactulose -Diabetes mellitus type 2 Januvia. Lantus Follow Accu-Cheks with sliding scale -Essential hypertension Lopressor 25 mg twice a day -June 2023: of lumbar discitis. Patient had surgery for the same. received antibiotics. -Cognitive impairment -Full code. -PANCHITO, Ar Ramírez. Son Past Medical History Past Medical History: CVA/TIA, Dementia, Diabetes Mellitus, Hypertension, Osteo arthritis (OA) Additional Past Medical History / Comment(s): Pt states she is on an antibiotic for ear infection/throat infection at this time, TIA which affected speech, pt d enies HTN but it is documented in past medical hx, diet controlled diabetes History of Any Multi-Drug Resistant Organisms: None Reported Past Surgical History: Orthopedic Surgery Additional Past Surgical History / Comment(s): I&D tooth abscess, left trigger finger surgery Past Anesthesia/Blood Transfusion Reactions: No Reported Reaction Past Psychological History: Anxiety, Bipolar, Depression Additional Psychological History / Comment(s): Pt states she sees a Dr. Ramírez for her mental health care. She resides with her granddaughter and 3 greatg randchildren. She does not drive. She gets to appts with family or friends or cab. uses no assistive devices. Smoking Status: Never smoker Past Alcohol Use History: None Reported Past Drug Use History: None Reported - Past Family History Father Family Medical History: No Reported History Mother Family Medical History: No Reported History Medications and Allergies Home Medications Medication Instructions Recorded Confirmed Type Apixaban [Eliquis] 5 mg PO BID 07/29/23 11/06/23 History Ascorbic Acid [Vitamin C] 250 mg PO DAILY 07/29/23 11/06/23 History Benztropine Mesylate [Cogentin] 2 mg PO HS 07/29/23 11/06/23 History Cholecalciferol [Vitamin D3 (25 25 mcg PO DAILY 07/29/23 11/06/23 History Mcg = 1000 Iu)] Famotidine [Pepcid] 20 mg PO DAILY 07/29/23 11/06/23 History Ferrous Sulfate [Iron] 325 mg PO DAILY 07/29/23 11/06/23 History Lactulose 20 gm PO DAILY PRN 07/29/23 11/06/23 History Multivitamins, Thera [Multivitamin 1 tab PO DAILY 07/29/23 11/06/23 History (formulary)] Sennosides/Docusate Sodium [Senna 1 tab PO BID 07/29/23 11/06/23 History Plus 8.6-50 mg Tablet] polyethylene glycoL 3350 [Miralax] 17 gm PO BID 07/29/23 11/06/23 History sitaGLIPtin [Januvia] 50 mg PO DAILY 07/29/23 11/06/23 History Acetaminophen Tab [Tylenol] 500 mg PO Q6HR PRN tab 08/09/23 11/06/23 Rx Metoprolol Tartrate [Lopressor] 25 mg PO TID #0 08/09/23 11/06/23 Rx haloperidoL [Haldol] 2.5 mg PO HS #3 tab 08/09/23 11/06/23 Rx Diclofenac Sodium Gel [Voltaren 1% 2 gm TOPICAL Q6H 08/15/23 11/06/23 History Gel] INSULIN LISPRO (HumaLOG) [humaLOG] See Protocol SQ AC-TID 10/08/23 11/06/23 History Insulin Glargine,Hum.rec.anlog 10 units SQ DAILY 10/08/23 11/06/23 History [Lantus Solostar Pen] Gabapentin [Neurontin] 100 mg PO BID #6 cap 10/11/23 11/06/23 Rx HYDROcodone/APAP 5-325MG [[place] 1 tab PO Q4HR PRN #18 tab 10/11/23 11/06/23 Rx 5-325] droNABinol [Marinol] 2.5 mg PO BID #6 cap 10/11/23 11/06/23 Rx Allergies Allergy/AdvReac Type Severity Reaction Status Date / Time metformin Allergy Unknown Verified 11/06/23 15:34 Sulfa (Sulfonamide Allergy Unknown Verified 11/06/23 15:34 Antibiotics) Physical Exam Vitals: Vital Signs Temp Pulse Pulse Resp BP BP Pulse Ox 11/06/23 19:53 98 F 71 16 154/71 98 11/06/23 19:45 98 F 71 16 154/71 11/06/23 18:15 79 20 190/97 96 11/06/23 17:27 80 169/76 11/06/23 15:15 76 20 186/92 11/06/23 13:19 98.1 F 77 20 154/78 98 Intake and Output 11/06/23 11/06/23 11/06/23 06:59 14:59 22:59 Other: Voiding Method Incontinent Weight 69.853 kg 69.853 kg Results CBC & Chem 7: 11/07/23 05:09 11/07/23 05:09 Labs: Abnormal Lab Results - Last 24 Hours (Table) 11/06/23 11/06/23 11/06/23 Range/Units 14:21 14:21 14:21 RBC 3.73 L (3.80-5.40) m/uL Chloride 111 H (98-107) mmol/L Carbon Dioxide 21 L (22-30) mmol/L Creatinine 0.47 L (0.52-1.04) mg/dL Glucose 127 H (74-99) mg/dL Total Protein 9.1 H (6.3-8.2) g/dL Urine Appearance Turbid H (Clear) Urine Protein 1+ H (Negative) Urine Blood Small H (Negative) Ur Leukocyte Esterase Large H (Negative) Urine RBC 11 H (0-5) /hpf Urine WBC 182 H (0-5) /hpf Calcium Oxalate Crystal Rare H (None) /hpf
--- NOTE | 2023-11-07 19:48 | P.PN ---
Progress Note - Text Progress Note Date: 11/07/23 Chief Complaint: Tired This is a 77-year-old patient, at rehab at [facility]. Being followed by Dr. Mijares. Chronic stable medical conditions includes dementia, diabetes, hypertension, osteoarthritis, bipolar. June 2023 patient was sent to [facility] where patient was found to have discitis in the lumbar area. - surgery for the same and rods in the spine. - come back to rehab. change in mental status patient is sent back to [facility] again. Patient had been septic. Started on IV Zosyn. started off with bedsores that has progressively gotten worse. Local wound care has continued. As a sacral decubiti this became larger patient sent back to the ER on July 292022. As per the granddaughter they'll prefer to have treatment done here and not [place] if that can be avoided. Patient subsequently went wound debridement. Patient and family declined colostomy. discharged with PICC line and IV Zosyn,eraxis. Patient presented with decreased urine output. [place] to be purulent. Questionable discomfort. Patient other tired. No fever reported. November 07: Sitting up in a recliner. Appears comfortable. Had about half of breakfast. Surgery was consulted for the wound VAC.-They consulted wound care team. Active Medications Acetaminophen (Acetaminophen Tab 500 Mg Tab) 500 mg PO Q6HR PRN PRN Reason: Fever and/ or Pain Hydrocodone Bitart/Acetaminophen (Hydrocodone/Apap 5-325mg 1 Each Tab) 1 each PO Q4HR PRN PRN Reason: Pain Last Admin: 11/07/23 10:19 Dose: 1 each Alprazolam (Alprazolam 0.25 Mg Tab) 0.25 mg PO Q6HR PRN PRN Reason: Anxiety Apixaban (Apixaban 5 Mg Tab) 5 mg PO BID [facility]; Protocol Last Admin: 11/07/23 07:35 Dose: 5 mg Ascorbic Acid (Ascorbic Acid 500 Mg Tab) 250 mg PO DAILY [facility] Last Admin: 11/07/23 07:36 Dose: 250 mg Benztropine Mesylate (Benztropine Mesylate 1 Mg Tab) 2 mg PO HS [facility] Last Admin: 11/06/23 23:58 Dose: Not Given Calcium Carbonate/Glycine (Calcium Carbonate 500 Mg Chewable) 1,000 mg PO Q4HR PRN PRN Reason: Dyspepsia Cholecalciferol (Cholecalciferol 25 Mcg (1000 Iu) Tablet) 25 mcg PO DAILY [facility] Last Admin: 11/07/23 07:37 Dose: 25 mcg Dextrose/Water (Dextrose 50% Syringe 50 Ml) 25 ml IVP PER PROTOCOL PRN; Protoc ol PRN Reason: Hypoglycemia Dextrose/Water (Dextrose 50% Syringe 50 Ml) 50 ml IVP PER PROTOCOL PRN; Protocol PRN Reason: Hypoglycemia Diclofenac Sodium (Diclofenac Sodium Gel 100 Gm Tube) 2 gm TOPICAL Q6H [facility]; Protocol Last Admin: 11/07/23 17:48 Dose: 2 gm Dronabinol (Dronabinol 2.5 Mg Cap) 2.5 mg PO BID [facility] Last Admin: 11/07/23 07:37 Dose: 2.5 mg Famotidine (Famotidine 20 Mg Tab) 20 mg PO DAILY [facility] Last Admin: 11/07/23 07:37 Dose: 20 mg Ferrous Sulfate (Ferrous Sulfate 325 Mg Tab) 325 mg PO DAILY [facility] Last Admin: 11/07/23 07:37 Dose: 325 mg Gabapentin (Gabapentin 100 Mg Cap) 100 mg PO BID [facility] Last Admin: 11/07/23 07:36 Dose: 100 mg Haloperidol (Haloperidol 5 Mg Tab) 2.5 mg PO HS [facility] Last Admin: 11/06/23 23:58 Dose: Not Given Hydromorphone HCl (Hydromorphone 1 Mg/Ml 1 Ml Syringe) 1 mg IVP Q3HR PRN PRN Reason: Severe Pain (Scale 7 to 10) Last Admin: 11/07/23 12:03 Dose: 1 mg Sodium Chloride (Saline 0.9%) 1,000 mls @ 75 mls/hr IV .[id number] [facility] Last Admin: 11/07/23 18:56 Dose: Not Given Ceftriaxone Sodium 2 gm/ (Sodium Chloride) 50 mls @ 100 mls/hr IVPB Q24HR [facility]; Protocol Last Admin: 11/07/23 07:37 Dose: 100 mls/hr Insulin Aspart (Insulin Aspart (Novolog) 100 Unit/Ml Vial) 0 unit SQ AC-TID [facility]; Protocol Last Admin: 11/07/23 17:29 Dose: Not Given Insulin Detemir (Insulin Detemir (Levemir) 100 Unit/Ml Syr) 10 unit SQ DAILY@0700 [facility] Last Admin: 11/07/23 08:01 Dose: 10 unit Lactulose (Lactulose 20 Gm/30 Ml Cup) 20 gm PO DAILY PRN PRN Reason: Constipation Linagliptin (Linagliptin 5 Mg Tablet) 5 mg PO DAILY [facility] Last Admin: 11/07/23 07:37 Dose: 5 mg Metoprolol Tartrate (Metoprolol Tartrate 25 Mg Tab) 25 mg PO TID [facility] Last Admin: 11/07/23 16:38 Dose: 25 mg Multivitamins (Multivitamins, Thera 1 Each Tab) 1 each PO DAILY [facility] Last Admin: 11/07/23 07:36 Dose: 1 each Naloxone HCl (Naloxone 0.4 Mg/Ml 1 Ml Vial) 0.2 mg IV Q2M PRN PRN Reason: Opioid Reversal Ondansetron HCl (Ondansetron 4 Mg/2 Ml Vial) 4 mg IVP Q8HR PRN PRN Reason: Nausea And Vomiting Last Admin: 11/07/23 13:37 Dose: 4 mg Pantoprazole Sodium (Pantoprazole 40 Mg/10 Ml Vial) 40 mg IV DAILY [facility] Last Admin: 11/07/23 08:19 Dose: 40 mg Polyethylene Glycol (Polyethylene Glycol 3350 17 Gm Powd.Pack) 17 gm PO BID [facility] Last Admin: 11/07/23 08:08 Dose: Not Given Senna/Docusate Sodium (Sennosides-Docusate Sodium 1 Each Tab) 1 each PO BID [facility] Last Admin: 11/07/23 08:08 Dose: Not Given Temazepam (Temazepam 15 Mg Cap) 15 mg PO HS PRN PRN Reason: Insomnia Past medical history to include: Dementia, diabetes, hypertension, osteoarthritis,, bipolar, discitis-lumbar, sacral decub is ulcer Social history: No smoking or alcohol history. Currently at rehab at [facility]. Patient's son Ar Ramírez is the POA. Physical examination: VITAL SIGNS: 98, 71, 16, 154 x 71, 96% room air GENERAL: Sitting up in recliner, comfortable EYES: Pupils equal. Conjunctiva normal. HEENT: External appearance of nose and ears normal, oral cavity grossly normal. NECK: JVD not raised; masses not palpable. HEART: First and second heart sounds are normal; no edema. LUNGS: Respiratory rate normal; clear to auscultation. ABDOMEN: Soft, nontender, liver spleen not palpable, no masses palpable. [place] PSYCH: Can answer simple questions DERMATOLOGICAL: Sacral decubitus ulcer with: Wound VAC MUSCULOSKELETAL:No Clubbing/cyanosis;muscles-grossly intact, OA NEUROLOGICAL: Cranial nerves grossly intact; no facial asymmetry, power and sensation grossly intact. LYMPHATICS: No lymph nodes palpable in the axilla and neck INVESTIGATIONS, reviewed in the clinical context: November 07: White count 6.8 hemoglobin 9.2 potassium 3.3 creatinine 0.5 November 06: White count 7.2 hemoglobin 11.4 platelets 284 sodium 141 potassium 3.6 BUN 17 creatinine 0.47 UA: Leukoesterase positive. Nitrate negative. WBC 182 EKG tracing personally reviewed by me-normal sinus rhythm nonspecific T wave changes. Assessment and plan: -Possible UTI with cystitis IV ceftriaxone -Stage IV large sacral decubitus ulcer. Previous debridement by Dr. Atwood. Wound VAC in place As per patient wishes and the son no diverting colostomy-on last admission. Dr. Atwood consulted. Wound care team consulted. -Normocytic anemia of chronic disease: Follow H&H -Chronic medical debility. -Chronic constipation MiraLAX, senna plus, lactulose -Diabetes mellitus type 2 ia. Lantus Follow Accu-Cheks with sliding scale -Essential hypertension Lopressor 25 mg twice a day -June 2023: of lumbar discitis. Patient had surgery for the same. received antibiotics. -Cognitive impairment -Full code. -PANCHITO, Ar Ramírez. Son Tried to reach patient's son on the phone. Went into voicemail. Past Medical History Past Medical History: CVA/TIA, Dementia, Diabetes Mellitus, Hypertension, Osteoarthritis (OA) Additional Past Medical History / Comment(s): Pt states she is on an antibiotic for ear infection/throat infection at this time, TIA which affected speech, pt denies HTN but it is documented in past medical hx, diet controlled diabetes History of Any Multi-Drug Resistant Organisms: None Reported Past Surgical History: Orthopedic Surgery Additional Past Surgical History / Comment(s): I&D tooth abscess, left trigger finger surgery Past Anesthesia/Blood Transfusion Reactions: No Reported Reaction Past Psychological History: Anxiety, Bipolar, Depression Additional Psychological History / Comment(s): Pt states she sees a Dr. Ramírez for her mental health care. She resides with her granddaughter and 3 great grandchildren. She does not drive. She gets to appts with family or friends or cab. uses no assistive devices. Smoking Status: Never smoker Past Alcohol Use History: None Reported Past Drug Use History: None Reported
[2023-11-07 20:27] LABS: Glucose,Whole Blood 220 mg/dL (70-110)
[2023-11-08 00:22] LABS: Amorphous Sediment,Urine Few /hpf; Appearance,Urine Turbid (Clear); Bacteria,Urine Many /hpf; Bilirubin,Urine Negative (Negative); Blood,Urine Small (Negative); Color,Urine Light Yellow; Glucose,Urine (UA) Negative (Negative); Hyaline Casts,Urine 30 /lpf (0-2); Ketones,Urine Negative (Negative); Leukocyte Esterase,Urine Large (Negative); Mucus,Urine Many /hpf; Nitrite,Urine Negative (Negative); Protein,Urine Trace (Negative); RBC,Urine 29 /hpf (0-5); Specific Gravity,Urine 1.018 (1.001-1.035); Squamous Epithelial Cell,Urine 4 /hpf (0-4); Urobilinogen,Urine <2.0 mg/dL (<2.0); WBC,Urine >182 /hpf (0-5)
[2023-11-08 07:34] LABS: Glucose,Whole Blood 107 mg/dL (70-110)
--- NOTE | 2023-11-08 10:19 | P.CONS ---
History of Present Illness - Reason for Consult Consult date: 11/08/23 wound care - History of Present Illness This is a 77-year-old patient being seen on 5 [address]. for a stage III pressure ulcer. Patient is currently under treatment in the wound care center. Her last wound appointment was on November 04. At that time the ulceration was showing improvement with size and morphology. Patient no longer has bone exposed. Original cause of wound was Pressure Injury. The date acquired was: 05/26/2023. The wound has been in treatment 10 weeks. The wound is currently classified as a Category/Stage IV wound with etiology of Pressure Ulcer and is located on the Medial Sacrum. The wound measures 3.2cm length x 2.4cm width x 1.5cm depth; 6.032cm^2 area and 9.048cm^3 volume. There is Fat Layer (Subcutaneous Tissue) and fascia exposed. There is no tunneling noted, however, there is undermining starting at :00 and ending at :00. There is a medium amount of drainage noted. The wound margin is well defined and not attached to the wound base. There is large (67-100%) red, pink granulation within the wound bed. There is a small (1- 33%) amount of necrotic tissue within the wound bed. The periwound skin appearance exhibited: Scarring. The periwound skin appearance did not exhibit: Callus, Crepitus, Excoriation, Induration, Rash, Atrophie Юлия, Cyanosis, Ecchymosis, Hemosiderin Staining, Mottled, Pallor, Rubor, Erythema. Periwound temperature was noted as No Abnormality. Review of systems: Unable to obtain due to patient's mental status Physical exam: General Appearance: Alert, cooperative, no distress, appears stated age. Skin: See HPI all other Skin color, texture, tugor normal, no rashes or lesions. Neurologic: Alert oriented x3 Assessment: 1. Sacral pressure ulcer stage III 2. Diabetes with skin ulceration 3. Dementia Plan: 1.Apply negative pressure wound VAC at 125 mmHg continuous pressure with black foam. Patient's next wound care appointment is November 11 at 830 Thank you for the consultation any questions please contact the wound care center DNP note has been reviewed and discussed with Dr. Lim and the impression and plan of care has been directed as dictated. Past Medical History Past Medical History: CVA/TIA, Dementia, Diabetes Mellitus, Hypertension, Osteoarthritis (OA) Additional Past Medical History / Comment(s): Pt states she is on an antibiotic for ear infection/throat infection at this time, TIA which affected speech, pt denies HTN but it is documented in past medical hx, diet controlled diabetes History of Any Multi-Drug Resistant Organisms: None Reported Past Surgical History: Orthopedic Surgery Additional Past Surgical History / Comment(s): I&D tooth abscess, left trigger finger surgery Past Anesthesia/Blood Transfusion Reactions: No Reported Reaction Past Psychological History: Anxiety, Bipolar, Depression Additional Psychological History / Comment(s): Pt states she sees a Dr. Ramírez for her mental health care. She resides [facility] her granddaughter [facility] [place] She does not drive. She gets to appts with family or friends or cab. uses no assistive devices. Smoking Status: Never smoker Past Alcohol Use History: None Reported Past Drug Use History: None Reported - Past Family History Father Family Medical History: No Reported History Mother Family Medical History: No Reported History Medications and Allergies Home Medications Medication Instructions Recorded Confirmed Type Apixaban [Eliquis] 5 mg PO BID 07/29/23 11/06/23 History Ascorbic Acid [Vitamin C] 250 mg PO DAILY 07/29/23 11/06/23 History Benztropine Mesylate [Cogentin] 2 mg PO HS 07/29/23 11/06/23 History Cholecalciferol [Vitamin D3 (25 25 mcg PO DAILY 07/29/23 11/06/23 History Mcg = 1000 Iu)] Famotidine [Pepcid] 20 mg PO DAILY 07/29/23 11/06/23 History Ferrous Sulfate [Iron] 325 mg PO DAILY 07/29/23 11/06/23 History Lactulose 20 gm PO DAILY PRN 07/29/23 11/06/23 History Multivitamins, Thera [Multivitamin 1 tab PO DAILY 07/29/23 11/06/23 History (formulary)] Sennosides/Docusate Sodium [Senna 1 tab PO BID 07/29/23 11/06/23 History Plus 8.6-50 mg Tablet] polyethylene glycoL 3350 [Miralax] 17 gm PO BID 07/29/23 11/06/23 History sitaGLIPtin [Januvia] 50 mg PO DAILY 07/29/23 11/06/23 History Acetaminophen Tab [Tylenol] 500 mg PO Q6HR PRN tab 08/09/23 11/06/23 Rx Metoprolol Tartrate [Lopressor] 25 mg PO TID #0 08/09/23 11/06/23 Rx haloperidoL [Haldol] 2.5 mg PO HS #3 tab 08/09/23 11/06/23 Rx Diclofenac Sodium Gel [Voltaren 1% 2 gm TOPICAL Q6H 08/15/23 11/06/23 History Gel] INSULIN LISPRO (HumaLOG) [humaLOG] See Protocol SQ AC-TID 10/08/23 11/06/23 History Insulin Glargine,Hum.rec.anlog 10 units SQ DAILY 10/08/23 11/06/23 History [Lantus Solostar Pen] Gabapentin [Neurontin] 100 mg PO BID #6 cap 10/11/23 11/06/23 Rx HYDROcodone/APAP 5-325MG [[place] 1 tab PO Q4HR PRN #18 tab 10/11/23 11/06/23 Rx 5-325] droNABinol [Marinol] 2.5 mg PO BID #6 cap 10/11/23 11/06/23 Rx Allergies Allergy/AdvReac Type Severity Reaction Status Date / Time metformin Allergy Unknown Verified 11/06/23 15:34 Sulfa (Sulfonamide Allergy Unknown Verified 11/06/23 15:34 Antibiotics) Physical Exam Vitals: Vital Signs Temp Pulse Resp BP Pulse Ox 11/08/23 07:32 76 16 150/68 97 11/08/23 02:00 98 F 81 16 147/77 95 11/07/23 19:53 97.7 F 69 17 139/79 97 11/07/23 19:40 97.3 F L 84 16 153/74 96 11/07/23 19:24 96 11/07/23 17:01 97.6 F 77 17 163/80 97 11/07/23 13:13 97.5 F L 74 16 170/80 97 Intake and Output 11/07/23 11/08/23 11/08/23 22:59 06:59 14:59 Output Total 550 900 Balance -550 -900 Output: Urine 550 900 Other: Voiding Method Incontinent Incontinent External Catheter Indwelling Catheter Results CBC & Chem 7: 11/07/23 05:09 11/07/23 05:09 Labs: Abnormal Lab Results - Last 24 Hours (Table) 11/07/23 11/07/23 11/07/23 Range/Units 12:02 17:05 20:25 POC Glucose (mg/dL) 133 H 126 H 220 H (70-110) mg/dL Urine Appearance (Clear) Urine Protein (Negative) Urine Blood (Negative) Ur Leukocyte Esterase (Negative) Urine RBC (0-5) /hpf Urine WBC (0-5) /hpf Amorphous Sediment (None) /hpf Urine Bacteria (None) /hpf Hyaline Casts (0-2) /lpf Urine Mucus (None) /hpf 11/07/23 Range/Units 23:45 POC Glucose (mg/dL) (70-110) mg/dL Urine Appearance Turbid H (Clear) Urine Protein Trace H (Negative) Urine Blood Small H (Negative) Ur Leukocyte Esterase Large H (Negative) Urine RBC 29 H (0-5) /hpf Urine WBC >182 H (0-5) /hpf Amorphous Sediment Few H (None) /hpf Urine Bacteria Many H (None) /hpf Hyaline Casts 30 H (0-2) /lpf Urine Mucus Many H (None) /hpf Microbiology - Last 24 Hours (Table) 11/06/23 14:25 Blood Culture - Preliminary Blood 11/06/23 14:21 Blood Culture - Preliminary Blood Assessment and Plan (1) Pressure ulcer of sacral region, stage 3 Current Visit: Yes Status: Acute Code(s): L89.153 - PRESSURE ULCER OF SACRAL REGION, STAGE 3 SNOMED Code(s): 43703404478340 (2) Type 2 diabetes mellitus with other skin ulcer Current Visit: Yes Status: Acute Code(s): E11.622 - TYPE 2 DIABETES MELLITUS WITH OTHER SKIN ULCER; L98.499 - NON-PRESSURE CHRONIC ULCER OF SKIN OF SITES W UNSP SEVERITY SNOMED Code(s): 771262848 (3) Dementia in other diseases classified elsewhere, moderate, without behavioral disturbance, psychotic disturbance, mood disturbance, and anxiety Current Visit: Yes Status: Acute Code(s): F02.B0 - DEM IN OTHER DIS CLASSD ELSWHR, MOD, W/O BEH/PSYCH/MOOD/ANX SNOMED Code(s): 275620269
[2023-11-08 12:27] LABS: Glucose,Whole Blood 107 mg/dL (70-110)
--- NOTE | 2023-11-08 14:24 | P.PN ---
Subjective Progress Note Date: 11/08/23 CHIEF COMPLAINT: Sacral decubitus ulcer HISTORY OF PRESENT ILLNESS: Patient has been seen by wound care service. Sacral wound is healing. Wound VAC to be changed today. Patient resting comfortably. No new complaints. Afebrile. PHYSICAL EXAM: VITAL SIGNS: Reviewed GENERAL: Well-developed in no acute distress. HEENT: No sclera icterus. Extraocular movements grossly intact. Moist buccal mucosa. Head is atraumatic, normocephalic. Hears conversational speech. No nasal drainage. NECK: Supple without lymphadenopathy. CHEST: Non-labored respirations and equal bilateral excursions. CARDIOVASCULAR: Palpable 2+ radial pulses. ABDOMEN: Soft. Nondistended. Nontender. MUSCULOSKELETAL: No clubbing or cyanosis. NEUROLOGIC: No focal or lateralizing signs. Cranial nerves II through XII grossly intact. PSYCH: Awake and alert SKIN: Well perfused. Good skin turgor. ASSESSMENT: 1. Sacral decubitus ulcer status post debridement in July 2023 2. UTI PLAN: -Wound VAC management per wound care service -Continue a high-protein diet to promote wound healing -Antibiotics per infectious disease for UTI -Surgical service will sign off. Please call with any questions or concerns. Physician Silk Screen Layout Drafter note has been reviewed by physician. Signing provider agrees with the documented findings, assessment, and plan of care. Objective - Vital Signs Vital signs: Vital Signs Temp 98 F 11/08/23 02:00 Pulse 76 11/08/23 07:32 Resp 16 11/08/23 07:32 BP 150/68 11/08/23 07:32 Pulse Ox 97 11/08/23 07:32 FiO2 Intake & Output 11/07/23 11/08/23 11/08/23 18:59 06:59 18:59 Output Total 550 900 Balance -550 -900 Output: Urine 550 900 Other: Voiding Method Incontinent Incontinent Incontinent External Catheter External Catheter Indwelling Catheter - Labs CBC & Chem 7: 11/07/23 05:09 11/07/23 05:09 Labs: Abnormal Lab Results - Last 24 Hours (Table) 11/07/23 11/07/23 11/07/23 Range/Units 12:02 17:05 20:25 POC Glucose (mg/dL) 133 H 126 H 220 H (70-110) mg/dL Urine Appearance (Clear) Urine Protein (Negative) Urine Blood (Negative) Ur Leukocyte Esterase (Negative) Urine RBC (0-5) /hpf Urine WBC (0-5) /hpf Amorphous Sediment (None) /hpf Urine Bacteria (None) /hpf Hyaline Casts (0-2) /lpf Urine Mucus (None) /hpf 11/07/23 Range/Units 23:45 POC Glucose (mg/dL) (70-110) mg/dL Urine Appearance Turbid H (Clear) Urine Protein Trace H (Negative) Urine Blood Small H (Negative) Ur Leukocyte Esterase Large H (Negative) Urine RBC 29 H (0-5) /hpf Urine WBC >182 H (0-5) /hpf Amorphous Sediment Few H (None) /hpf Urine Bacteria Many H (None) /hpf Hyaline Casts 30 H (0-2) /lpf Urine Mucus Many H (None) /hpf Microbiology - Last 24 Hours (Table) 11/06/23 14:25 Blood Culture - Preliminary Blood 11/06/23 14:21 Blood Culture - Preliminary Blood
--- NOTE | 2023-11-08 14:57 | P.PN ---
Progress Note - Text Progress Note Date: 11/08/23 Chief Complaint: Tired This is a 77-year-old patient, at rehab at [facility]. Being followed by Dr. Mijares. Chronic stable medical conditions includes dementia, diabetes, hypertension, osteoarthritis, bipolar. June 2023 patient was sent to [facility] where patient was found to have discitis in the lumbar area. - surgery for the same and rods in the spine. - come back to rehab. change in mental status patient is sent back to [facility] again. Patient had been septic. Started on IV Zosyn. started off with bedsores that has progressively gotten worse. Local wound care has continued. As a sacral decubiti this became larger patient sent back to the ER on July [id number]. As per the granddaughter they'll prefer to have treatment done here and not [place] if that can be avoided. Patient subsequently went wound debridement. Patient and family declined colostomy. discharged with PICC line and IV Zosyn,eraxis. Patient presented with decreased urine output. [place] to be purulent. Questionable discomfort. Patient other tired. No fever reported. November 07: Sitting up in a recliner. Appears comfortable. Had about half of breakfast. Surgery was consulted for the wound VAC.-They consulted wound care team. November 08: Reclining bed. Comfortable. Seen by Dr. Mercado's team for wound VAC. Applied. Urine culture pending. Active Medications Acetaminophen (Acetaminophen Tab 500 Mg Tab) 500 mg PO Q6HR PRN PRN Reason: Fever and/ or Pain Hydrocodone Bitart/Acetaminophen (Hydrocodone/Apap 5-325mg 1 Each Tab) 1 each PO Q4HR PRN PRN Reason: Pain Last Admin: 11/08/23 03:54 Dose: 1 each Alprazolam (Alprazolam 0.25 Mg Tab) 0.25 mg PO Q6HR PRN PRN Reason: Anxiety Apixaban (Apixaban 5 Mg Tab) 5 mg PO BID [facility]; Protocol Last Admin: 11/08/23 08:36 Dose: 5 mg Ascorbic Acid (Ascorbic Acid 500 Mg Tab) 250 mg PO DAILY [facility] Last Admin: 11/08/23 08:36 Dose: 250 mg Benztropine Mesylate (Benztropine Mesylate 1 Mg Tab) 2 mg PO HS [facility] Last Admin: 11/07/23 22:40 Dose: 2 mg Calcium Carbonate/Glycine (Calcium Carbonate 500 Mg Chewable) 1,000 mg PO Q4HR PRN PRN Reason: Dyspepsia Cholecalciferol (Cholecalciferol 25 Mcg (1000 Iu) Tablet) 25 mcg PO DAILY [facility] Last Admin: 11/08/23 08:36 Dose: 25 mcg Dextrose/Water (Dextrose 50% Syringe 50 Ml) 25 ml IVP PER PROTOCOL PRN; Protocol PRN Reason: Hypoglycemia Dextrose/Water (Dextrose 50% Syringe 50 Ml) 50 ml IVP PER PROTOCOL PRN; Protocol PRN Reason: Hypoglycemia Diclofenac Sodium (Diclofenac Sodium Gel 100 Gm Tube) 2 gm TOPICAL Q6H [facility]; Protocol Last Admin: 11/08/23 12:00 Dose: 2 gm Dronabinol (Dronabinol 2.5 Mg Cap) 2.5 mg PO BID [facility] Last Admin: 11/08/23 08:36 Dose: 2.5 mg Famotidine (Famotidine 20 Mg Tab) 20 mg PO DAILY [facility] Last Admin: 11/08/23 08:36 Dose: 20 mg Ferrous Sulfate (Ferrous Sulfate 325 Mg Tab) 325 mg PO DAILY [facility] Last Admin: 11/08/23 08:36 Dose: 325 mg Gabapentin (Gabapentin 100 Mg Cap) 100 mg PO BID [facility] Last Admin: 11/08/23 08:36 Dose: 100 mg Haloperidol (Haloperidol 5 Mg Tab) 2.5 mg PO [facility] Last Admin: 11/07/23 22:35 Dose: 2.5 mg Hydromorphone HCl (Hydromorphone 1 Mg/Ml 1 Ml Syringe) 1 mg IVP Q3HR PRN PRN Reason: Severe Pain (Scale 7 to 10) Last Admin: 11/08/23 12:01 Dose: 1 mg Sodium Chloride (Saline 0.9%) 1,000 mls @ 75 mls/hr IV .[id number] [facility] Last Admin: 11/08/23 08:34 Dose: 75 mls/hr Ceftriaxone Sodium 2 gm/ (Sodium Chloride) 50 mls @ 100 mls/hr IVPB Q24HR [facility]; Protocol Last Admin: 11/08/23 08:34 Dose: 100 mls/hr Insulin Aspart (Insulin Aspart (Novolog) 100 Unit/Ml Vial) 0 unit SQ AC-TID [facility]; Protocol Last Admin: 11/08/23 12:48 Dose: Not Given Insulin Detemir (Insulin Detemir (Levemir) 100 Unit/Ml Syr) 10 unit SQ DAILY@0700 [facility] Last Admin: 11/08/23 08:35 Dose: 10 unit Lactulose (Lactulose 20 Gm/30 Ml Cup) 20 gm PO DAILY PRN PRN Reason: Constipation Linagliptin (Linagliptin 5 Mg Tablet) 5 mg PO DAILY [facility] Last Admin: 11/08/23 08:36 Dose: 5 mg Metoprolol Tartrate (Metoprolol Tartrate 25 Mg Tab) 25 mg PO TID [facility] Last Admin: 11/08/23 08:36 Dose: 25 mg Multivitamins (Multivitamins, Thera 1 Each Tab) 1 each PO DAILY [facility] Last Admin: 11/08/23 08:36 Dose: 1 each Naloxone HCl (Naloxone 0.4 Mg/Ml 1 Ml Vial) 0.2 mg IV Q2M PRN PRN Reason: Opioid Reversal Ondansetron HCl (Ondansetron 4 Mg/2 Ml Vial) 4 mg IVP Q8HR PRN PRN Reason: Nausea And Vomiting Last Admin: 11/07/23 13:37 Dose: 4 mg Pantoprazole Sodium (Pantoprazole 40 Mg/10 Ml Vial) 40 mg IV DAILY [facility] Last Admin: 11/08/23 08:35 Dose: 40 mg Polyethylene Glycol (Polyethylene Glycol 3350 17 Gm Powd.Pack) 17 gm PO BID [facility] Last Admin: 11/08/23 08:37 Dose: Not Given Senna/Docusate Sodium (Sennosides-Docusate Sodium 1 Each Tab) 1 each PO BID [facility] Last Admin: 11/08/23 08:36 Dose: 1 each Temazepam (Temazepam 15 Mg Cap) 15 mg PO HS PRN PRN Reason: Insomnia Past medical history to include: Dementia, diabetes, hypertension, osteoarthritis,, bipolar, discitis-lumbar, sacral decub is ulcer Social history: No smoking or alcohol history. Currently at rehab at [facility]. Patient's son Ar Ramírez is the POA. Physical examination: VITAL SIGNS: 97.9, 85, 16, 134 x 64, 95% room air GENERAL: Resting in bed comfortable EYES: Pupils equal. Conjunctiva normal. HEENT: External appearance of nose and ears normal, oral cavity grossly normal. NECK: JVD not raised; masses not palpable. HEART: First and second heart sounds are normal; no edema. LUNGS: Respiratory rate normal; clear to auscultation. ABDOMEN: Soft, nontender, liver spleen not palpable, no masses palpable. [place] PSYCH: Can answer simple questions DERMATOLOGICAL: Sacral decubitus ulcer with: Wound VAC MUSCULOSKELETAL:No Clubbing/cyanosis;muscles-grossly intact, OA INVESTIGATIONS, reviewed in the clinical context: November 07: White count 6.8 hemoglobin 9.2 potassium 3.3 creatinine 0.5 November 06: White count 7.2 hemoglobin 11.4 platelets 284 sodium 141 potassium 3.6 BUN 17 creatinine 0.47 UA: Leukoesterase positive. Nitrate negative. WBC 182 EKG tracing personally reviewed by me-normal sinus rhythm nonspecific T wave changes. Assessment and plan: -Possible UTI with cystitis. Pending culture IV ceftriaxone -Stage 3 large sacral decubitus ulcer. Previous debridement by Dr. Atwood. Wound VAC in place As per patient wishes and the son no diverting colostomy-on last admission. Dr. Atwood consulted. Wound care team following for the wound VAC -Normocytic anemia of chronic disease: Follow H&H -Chronic medical debility. -Chronic constipation MiraLAX, senna plus, lactulose -Diabetes mellitus type 2 Sepuvia. Lantus Follow Accu-Cheks with sliding scale -Essential hypertension Lopressor 25 mg twice a day -June 2023: of lumbar discitis. Patient had surgery for the same. received antibiotics. -Cognitive impairment -Full code. -Ar FLANAGAN. Son Continue current medication treatment plan. Pending cultures. Past Medical History Past Medical History: CVA/TIA, Dementia, Diabetes Mellitus, Hypertension, Osteoarthritis (OA) Additional Past Medical History / Comment(s): Pt states she is on an antibiotic for ear infection/throat infection at this time, TIA which affected speech, pt denies HTN but it is documented in past medical hx, diet controlled diabetes History of Any Multi-Drug Resistant Organisms: None Reported Past Surgical History: Orthopedic Surgery Additional Past Surgical History / Comment(s): I&D tooth abscess, left trigger finger surgery Past Anesthesia/Blood Transfusion Reactions: No Reported Reaction Past Psychological History: Anxiety, Bipolar, Depression Additional Psychological History / Comment(s): Pt states she sees a Dr. Ramírez for her mental health care. She resides with her granddaughter and [facility]. She does not drive. She gets to appts with family or friends or cab. uses no assistive devices. Smoking Status: Never smoker Past Alcohol Use History: None Reported Past Drug Use History: None Reported
[2023-11-08 17:34] LABS: Glucose,Whole Blood 198 mg/dL (70-110)
[2023-11-08 20:16] LABS: Glucose,Whole Blood 249 mg/dL (70-110)
[2023-11-09 07:22] LABS: Glucose,Whole Blood 99 mg/dL (70-110)
[2023-11-09 12:57] LABS: Glucose,Whole Blood 131 mg/dL (70-110)
[2023-11-09 17:22] LABS: Glucose,Whole Blood 154 mg/dL (70-110)
--- NOTE | 2023-11-09 18:45 | P.PN ---
Progress Note - Text Progress Note Date: 11/09/23 Chief Complaint: Tired This is a 77-year-old patient, at rehab at [facility]. Being followed by Dr. Mijares. Chronic stable medical conditions includes dementia, diabetes, hypertension, osteoarthritis, bipolar. June 2023 patient was sent to [facility] where patient was found to have discitis in the lumbar area. - surgery for the same and rods in the spine. - come back to rehab. change in mental status patient is sent back to [facility] again. Patient had been septic. Started on IV Zosyn. started off with bedsores that has progressively gotten worse. Local wound care has continued. As a sacral decubiti this became larger patient sent back to the ER on July [id number]. As per the granddaughter they'll prefer to have treatment done here and not [place] if that can be avoided. Patient subsequently went wound debridement. Patient and family declined colostomy. discharged with PICC line and IV Zosyn,eraxis. Patient presented with decreased urine output. [place] to be purulent. Questionable discomfort. Patient other tired. No fever reported. November 07: Sitting up in a recliner. Appears comfortable. Had about half of breakfast. Surgery was consulted for the wound VAC.-They consulted wound care team. November 08: Reclining bed. Comfortable. Seen by Dr. Mercado's team for wound VAC. Applied. Urine culture pending. November 09: Comfortable. Tolerating diet. Urine cultures negative. Wound VAC in place. Eating about 25%. Sometimes more. Again tried to reach patient's son on the phone. Mailbox is full Active Medications Acetaminophen (Acetaminophen Tab 500 Mg Tab) 500 mg PO Q6HR PRN PRN Reason: Fever and/ or Pain Hydrocodone Bitart/Acetaminophen (Hydrocodone/Apap 5-325mg 1 Each Tab) 1 each PO Q4HR PRN PRN Reason: Pain Last Admin: 11/09/23 16:51 Dose: 1 each Alprazolam (Alprazolam 0.25 Mg Tab) 0.25 mg PO Q6HR PRN PRN Reason: Anxiety Apixaban (Apixaban 5 Mg Tab) 5 mg PO BID [facility]; Protocol Last Admin: 11/09/23 09:23 Dose: 5 mg Ascorbic Acid (Ascorbic Acid 500 Mg Tab) 250 mg PO DAILY [facility] Last Admin: 11/09/23 09:22 Dose: 250 mg Benztropine Mesylate (Benztropine Mesylate 1 Mg Tab) 2 mg PO HS [facility] Last Admin: 11/08/23 21:53 Dose: 2 mg Calcium Carbonate/Glycine (Calcium Carbonate 500 Mg Chewable) 1,000 mg PO Q4HR PRN PRN Reason: Dyspepsia Cholecalciferol (Cholecalciferol 25 Mcg (1000 Iu) Tablet) 25 mcg PO DAILY [facility] Last Admin: 11/09/23 09:23 Dose: 25 mcg Dextrose/Water (Dextrose 50% Syringe 50 Ml) 25 ml IVP PER PROTOCOL PRN; Protocol PRN Reason: Hypoglycemia Dextrose/Water (Dextrose 50% Syringe 50 Ml) 50 ml IVP PER PROTOCOL PRN; Protocol PRN Reason: Hypoglycemia Diclofenac Sodium (Diclofenac Sodium Gel 100 Gm Tube) 2 gm TOPICAL Q6H [facility]; Protocol Last Admin: 11/09/23 16:52 Dose: 2 gm Dronabinol (Dronabinol 2.5 Mg Cap) 2.5 mg PO BID [facility] Last Admin: 11/09/23 09:23 Dose: 2.5 mg Famotidine (Famotidine 20 Mg Tab) 20 mg PO DAILY [facility] Last Admin: 11/09/23 09:21 Dose: 20 mg Ferrous Sulfate (Ferrous Sulfate 325 Mg Tab) 325 mg PO DAILY [facility] Last Admin: 11/09/23 09:22 Dose: 325 mg Gabapentin (Gabapentin 100 Mg Cap) 100 mg PO BID [facility] Last Admin: 11/09/23 09:23 Dose: 100 mg Haloperidol (Haloperidol 5 Mg Tab) 2.5 mg PO HS [facility] Last Admin: 11/08/23 21:53 Dose: 2.5 mg Hydromorphone HCl (Hydromorphone 1 Mg/Ml 1 Ml Syringe) 1 mg IVP Q3HR PRN PRN Reason: Severe Pain (Scale 7 to 10) Last Admin: 11/08/23 12:01 Dose: 1 mg Sodium Chloride (Saline 0.9%) 1,000 mls @ 75 mls/hr IV .[id number] [facility] Last Admin: 11/09/23 08:37 Dose: 75 mls/hr Ceftriaxone Sodium 2 gm/ (Sodium Chloride) 50 mls @ 100 mls/hr IVPB Q24HR [facility]; Protocol Last Admin: 11/09/23 09:21 Dose: 100 mls/hr Insulin Aspart (Insulin Aspart (Novolog) 100 Unit/Ml Vial) 0 unit SQ AC-TID [facility]; Protocol Last Admin: 11/09/23 17:24 Dose: 1 unit Insulin Detemir (Insulin Detemir (Levemir) 100 Unit/Ml Syr) 10 unit SQ DAILY@0700 [facility] Last Admin: 11/09/23 09:21 Dose: 10 unit Lactulose (Lactulose 20 Gm/30 Ml Cup) 20 gm PO DAILY PRN PRN Reason: Constipation Linagliptin (Linagliptin 5 Mg Tablet) 5 mg PO DAILY [facility] Last Admin: 11/09/23 09:21 Dose: 5 mg Metoprolol Tartrate (Metoprolol Tartrate 25 Mg Tab) 25 mg PO TID [facility] Last Admin: 11/09/23 15:34 Dose: 25 mg Multivitamins (Multivitamins, Thera 1 Each Tab) 1 each PO DAILY [facility] Last Admin: 11/09/23 09:23 Dose: 1 each Naloxone HCl (Naloxone 0.4 Mg/Ml 1 Ml Vial) 0.2 mg IV Q2M PRN PRN Reason: Opioid Reversal Ondansetron HCl (Ondansetron 4 Mg/2 Ml Vial) 4 mg IVP Q8HR PRN PRN Reason: Nausea And Vomiting Last Admin: 11/07/23 13:37 Dose: 4 mg Pantoprazole Sodium (Pantoprazole 40 Mg/10 Ml Vial) 40 mg IV DAILY [facility] Last Admin: 11/09/23 08:38 Dose: 40 mg Polyethylene Glycol (Polyethylene Glycol 3350 17 Gm Powd.Pack) 17 gm PO BID [facility] Last Admin: 11/09/23 09:26 Dose: Not Given Senna/Docusate Sodium (Sennosides-Docusate Sodium 1 Each Tab) 1 each PO BID [facility] Last Admin: 11/09/23 09:21 Dose: 1 each Temazepam (Temazepam 15 Mg Cap) 15 mg PO HS PRN PRN Reason: Insomnia Past medical history to include: Dementia, diabetes, hypertension, osteoarthritis,, bipolar, discitis-lumbar, sacral decub is ulcer Social history: No smoking or alcohol history. Currently at rehab at [facility]. Patient's son Ar Ramírez is the POA. Physical examination: VITAL SIGNS: 98.2, 93, 16, 133 x 65, 97% room air GENERAL: Resting in bed comfortable EYES: Pupils equal. Conjunctiva normal. HEENT: External appearance of nose and ears normal, oral cavity grossly normal. NECK: JVD not raised; masses not palpable. HEART: First and second heart sounds are normal; no edema. LUNGS: Respiratory rate normal; clear to auscultation. ABDOMEN: Soft, nontender, liver spleen not palpable, no masses palpable. [place] PSYCH: Can answer simple questions DERMATOLOGICAL: Sacral decubitus ulcer with: Wound VAC MUSCULOSKELETAL:No Clubbing/cyanosis;muscles-grossly intact, OA INVESTIGATIONS, reviewed in the clinical context: November 07: White count 6.8 hemoglobin 9.2 potassium 3.3 creatinine 0.5 November 06: White count 7.2 hemoglobin 11.4 platelets 284 sodium 141 potassium 3.6 BUN 17 creatinine 0.47 UA: Leukoesterase positive. Nitrate negative. WBC 182 EKG tracing personally reviewed by me-normal sinus rhythm nonspecific T wave changes. Assessment and plan: -Possible UTI with cystitis. Culture negative IV ceftriaxone. Changed to Omnicef -Stage 3 large sacral decubitus ulcer. Previous debridement by Dr. Atwood. Wound VAC in place As per patient wishes and the son no diverting colostomy-on last admission. Dr. Atwood consulted. Wound care team following for the wound VAC -Normocytic anemia of chronic disease: Follow H&H -Chronic medical debility. -Chronic constipation MiraLAX, senna plus, lactulose -Diabetes mellitus type 2 Januvia. Lantus Follow Accu-Cheks with sliding scale -Essential hypertension Lopressor 25 mg twice a day -June 2023: of lumbar discitis. Patient had surgery for the same. received antibiotics. -Cognitive impairment -Full code. -PANCHITO, Ar Ramírez. Son Unable to reach patient's son Kai on the phone. His mailbox is full. Changed to Omnicef. Past Medical History Past Medical History: CVA/TIA, Dementia, Diabetes Mellitus, Hypertension, Osteoarthritis (OA) Additional Past Medical History / Comment(s): Pt states she is on an antibiotic for ear infection/throat infection at this time, TIA which affected speech, pt denies HTN but it is documented in past medical hx, diet controlled diabetes History of Any Multi-Drug Resistant Organisms: None Reported Past Surgical History: Orthopedic Surgery Additional Past Surgical History / Comment(s): I&D tooth abscess, left trigger finger surgery Past Anesthesia/Blood Transfusion Reactions: No Reported Reaction Past Psychological History: Anxiety, Bipolar, Depression Additional Psychological History / Comment(s): Pt states she sees a Dr. Ramírez for her mental health care. She resides with her granddaughter and [facility] She does not drive. She gets to appts with family or friends or cab. uses no assistive devices. Smoking Status: Never smoker Past Alcohol Use History: None Reported Past Drug Use History: None Reported
[2023-11-09 20:29] LABS: Glucose,Whole Blood 121 mg/dL (70-110)
[2023-11-10 07:39] LABS: Glucose,Whole Blood 113 mg/dL (70-110)
[2023-11-10] MEDS: CEFDINIR 300 MG CAP PO SCH (09:08)
[2023-11-10 12:21] LABS: Glucose,Whole Blood 109 mg/dL (70-110)
--- NOTE | 2023-11-10 16:43 | P.PN ---
Progress Note - Text Progress Note Date: 11/10/23 Chief Complaint: Tired This is a 77-year-old patient, at rehab at [facility]. Being followed by Dr. Mijares. Chronic stable medical conditions includes dementia, diabetes, hypertension, osteoarthritis, bipolar. June 2023 patient was sent to [facility] where patient was found to have discitis in the lumbar area. - surgery for the same and rods in the spine. - come back to rehab. change in mental status patient is sent back to [facility] again. Patient had been septic. Started on IV Zosyn. started off with bedsores that has progressively gotten worse. Local wound care has continued. As a sacral decubiti this became larger patient sent back to the ER on July 292022. As per the granddaughter they'll prefer to have treatment done here and not [place] if that can be avoided. Patient subsequently went wound debridement. Patient and family declined colostomy. discharged with PICC line and IV Zosyn,eraxis. Patient presented with decreased urine output. [place] to be purulent. Questionable discomfort. Patient other tired. No fever reported. November 07: Sitting up in a recliner. Appears comfortable. Had about half of breakfast. Surgery was consulted for the wound VAC.-They consulted wound care team. November 08: Reclining bed. Comfortable. Seen by Dr. Mercado's team for wound VAC. Applied. Urine culture pending. November 09: Comfortable. Tolerating diet. Urine cultures negative. Wound VAC in place. Eating about 25%. Sometimes more. Again tried to reach patient's son on the phone. Mailbox is full November 10: Up in a chair. Comfortable. Eating fair. No new symptoms. Active Medications Acetaminophen (Acetaminophen Tab 500 Mg Tab) 500 mg PO Q6HR PRN PRN Reason: Fever and/ or Pain Hydrocodone Bitart/Acetaminophen (Hydrocodone/Apap 5-325mg 1 Each Tab) 1 each PO Q4HR PRN PRN Reason: Pain Last Admin: 11/10/23 16:04 Dose: 1 each Alprazolam (Alprazolam 0.25 Mg Tab) 0.25 mg PO Q6HR PRN PRN Reason: Anxiety Apixaban (Apixaban 5 Mg Tab) 5 mg PO BID [facility]; Protocol Last Admin: 11/10/23 09:08 Dose: 5 mg Ascorbic Acid (Ascorbic Acid 500 Mg Tab) 250 mg PO DAILY [facility] Last Admin: 11/10/23 09:07 Dose: 250 mg Benztropine Mesylate (Benztropine Mesylate 1 Mg Tab) 2 mg PO HS [facility] Last Admin: 11/09/23 20:56 Dose: 2 mg Calcium Carbonate/Glycine (Calcium Carbonate 500 Mg Chewable) 1,000 mg PO Q4HR PRN PRN Reason: Dyspepsia Cefdinir (Cefdinir 300 Mg Cap) 300 mg PO BID [facility]; Protocol Last Admin: 11/10/23 09:08 Dose: 300 mg Cholecalciferol (Cholecalciferol 25 Mcg (1000 Iu) Tablet) 25 mcg PO DAILY [facility] Last Admin: 11/10/23 09:07 Dose: 25 mcg Dextrose/Water (Dextrose 50% Syringe 50 Ml) 25 ml IVP PER PROTOCOL PRN; Protocol PRN Reason: Hypoglycemia Dextrose/Water (Dextrose 50% Syringe 50 Ml) 50 ml IVP PER PROTOCOL PRN; Protocol PRN Reason: Hypoglycemia Diclofenac Sodium (Diclofenac Sodium Gel 100 Gm Tube) 2 gm TOPICAL Q6H [facility]; Protocol Last Admin: 11/10/23 12:05 Dose: 2 gm Dronabinol (Dronabinol 2.5 Mg Cap) 2.5 mg PO BID [facility] Last Admin: 11/10/23 09:07 Dose: 2.5 mg Famotidine (Famotidine 20 Mg Tab) 20 mg PO DAILY [facility] Last Admin: 11/10/23 09:07 Dose: 20 mg Ferrous Sulfate (Ferrous Sulfate 325 Mg Tab) 325 mg PO DAILY [facility] Last Admin: 11/10/23 09:07 Dose: 325 mg Gabapentin (Gabapentin 100 Mg Cap) 100 mg PO BID [facility] Last Admin: 11/10/23 09:07 Dose: 100 mg Haloperidol (Haloperidol 5 Mg Tab) 2.5 mg PO HS [facility] Last Admin: 11/09/23 20:57 Dose: 2.5 mg Hydromorphone HCl (Hydromorphone 1 Mg/Ml 1 Ml Syringe) 1 mg IVP Q3HR PRN PRN Reason: Severe Pain (Scale 7 to 10) Last Admin: 11/08/23 12:01 Dose: 1 mg Sodium Chloride (Saline 0.9%) 1,000 mls @ 75 mls/hr IV .[id number] [facility] Last Admin: 11/10/23 12:05 Dose: 75 mls/hr Insulin Aspart (Insulin Aspart (Novolog) 100 Unit/Ml Vial) 0 unit SQ AC-TID [facility]; Protocol Last Admin: 11/10/23 12:37 Dose: Not Given Insulin Detemir (Insulin Detemir (Levemir) 100 Unit/Ml Syr) 10 unit SQ DAILY@0700 [facility] Last Admin: 11/10/23 09:07 Dose: 10 unit Lactulose (Lactulose 20 Gm/30 Ml Cup) 20 gm PO DAILY PRN PRN Reason: Constipation Linagliptin (Linagliptin 5 Mg Tablet) 5 mg PO DAILY [facility] Last Admin: 11/10/23 09:07 Dose: 5 mg Metoprolol Tartrate (Metoprolol Tartrate 25 Mg Tab) 25 mg PO TID [facility] Last Admin: 11/10/23 15:57 Dose: 25 mg Multivitamins (Multivitamins, Thera 1 Each Tab) 1 each PO DAILY [facility] Last Admin: 11/10/23 09:07 Dose: 1 each Naloxone HCl (Naloxone 0.4 Mg/Ml 1 Ml Vial) 0.2 mg IV Q2M PRN PRN Reason: Opioid Reversal Ondansetron HCl (Ondansetron 4 Mg/2 Ml Vial) 4 mg IVP Q8HR PRN PRN Reason: Nausea And Vomiting Last Admin: 11/07/23 13:37 Dose: 4 mg Pantoprazole Sodium (Pantoprazole 40 Mg/10 Ml Vial) 40 mg IV DAILY [facility] Last Admin: 11/10/23 09:09 Dose: 40 mg Polyethylene Glycol (Polyethylene Glycol 3350 17 Gm Powd.Pack) 17 gm PO BID [facility] Last Admin: 11/10/23 09:08 Dose: Not Given Senna/Docusate Sodium (Sennosides-Docusate Sodium 1 Each Tab) 1 each PO BID [facility] Last Admin: 11/10/23 09:07 Dose: 1 each Temazepam (Temazepam 15 Mg Cap) 15 mg PO HS PRN PRN Reason: Insomnia Past medical history to include: Dementia, diabetes, hypertension, osteoarthritis,, bipolar, discitis-lumbar, sacral decub is ulcer Social history: No smoking or alcohol history. Currently at rehab at [facility]. Patient's son Ar Ramírez is the POA. Physical examination: VITAL SIGNS: 97.7, 78, 18, 154/69, 98% room air GENERAL: Up in chair comfortable EYES: Pupils equal. Conjunctiva normal. HEENT: External appearance of nose and ears normal, oral cavity grossly normal. NECK: JVD not raised; masses not palpable. HEART: First and second heart sounds are normal; no edema. LUNGS: Respiratory rate normal; clear to auscultation. ABDOMEN: Soft, nontender, liver spleen not palpable, no masses palpable. [place] PSYCH: Answering simple questions DERMATOLOGICAL: Sacral decubitus ulcer with: Wound VAC MUSCULOSKELETAL:No Clubbing/cyanosis;muscles-grossly intact, OA INVESTIGATIONS, reviewed in the clinical context: November 07: White count 6.8 hemoglobin 9.2 potassium 3.3 creatinine 0.5 November 06: White count 7.2 hemoglobin 11.4 platelets 284 sodium 141 potassium 3.6 BUN 17 creatinine 0.47 UA: Leukoesterase positive. Nitrate negative. WBC 182 EKG tracing personally reviewed by me-normal sinus rhythm nonspecific T wave changes. Assessment and plan: -Possible UTI with cystitis. Culture negative IV ceftriaxone. Changed to Omnicef -Stage 3 large sacral decubitus ulcer. Previous debridement by Dr. Atwood. Wound VAC in place As per patient wishes and the son no diverting colostomy-on last admission. Dr. Atwood consulted. Wound care team following for the wound VAC -Normocytic anemia of chronic disease: Follow H&H -Chronic medical debility. -Chronic constipation MiraLAX, senna plus, lactulose -Diabetes mellitus type 2 . Lantus Follow Accu-Cheks with sliding scale -Essential hypertension Lopressor 25 mg twice a day -June 2023: of lumbar discitis. Patient had surgery for the same. received antibiotics. -Cognitive impairment -Full code. -DPOA, Ar Ramírez. Son Stable. Plan for discharge to [facility] tomorrow. Past Medical History Past Medical History: CVA/TIA, Dementia, Diabetes Mellitus, Hypertension, Osteoarthritis (OA) Additional Past Medical History / Comment(s): Pt states she is on an antibiotic for ear infection/throat infection at this time, TIA which affected speech, pt denies HTN but it is documented in past medical hx, diet controlled diabetes History of Any Multi-Drug Resistant Organisms: None Reported Past Surgical History: Orthopedic Surgery Additional Past Surgical History / Comment(s): I&D tooth abscess, left trigger finger surgery Past Anesthesia/Blood Transfusion Reactions: No Reported Reaction Past Psychological History: Anxiety, Bipolar, Depression Additional Psychological History / Comment(s): Pt states she sees a Dr. Ramírez for her mental health care. She resides with her granddaughter and [address] She gets to appts with family or friends or cab. uses no assistive devices. Smoking Status: Never smoker Past Alcohol Use History: None Reported Past Drug Use History: None Reported
[2023-11-10 17:36] LABS: Glucose,Whole Blood 168 mg/dL (70-110)
[2023-11-10 20:19] LABS: Glucose,Whole Blood 162 mg/dL (70-110)
[2023-11-11 07:42] LABS: Glucose,Whole Blood 104 mg/dL (70-110)
[2023-11-11 08:03] VITALS: RESP 18
[2023-11-11 12:13] LABS: Glucose,Whole Blood 118 mg/dL (70-110)
[2023-11-11 14:35] VITALS: BP 149/77; PULSE 104; TEMP 98.1
--- NOTE | 2023-11-11 20:17 | P.DS ---
Providers Date of admission: 11/06/23 15:57 Expected date of discharge: 11/11/23 Attending physician: Edgar Zuñiga Primary care physician: [facility] Course: Chief Complaint: Tired This is a 77-year-old patient, at rehab at [facility]. Being followed by Dr. Mijares. Chronic stable medical conditions includes dementia, diabetes, hypertension, osteoarthritis, bipolar. June 2023 patient was sent to [facility] where patient was found to have discitis in the lumbar area. - surgery for the same and rods in the spine. - come back to rehab. change in mental status patient is sent back to [facility] again. Patient had been septic. Started on IV Zosyn. started off with bedsores that has progressively gotten worse. Local wound care has continued. As a sacral decubiti this became larger patient sent back to the ER on July [id number]. As per the granddaughter they'll prefer to have treatment done here and not [place] if that can be avoided. Patient subsequently went wound debridement. Patient and family declined colostomy. discharged with PICC line and IV Zosyn,eraxis. Patient presented with decreased urine output. [place] to be purulent. Quest[place] onable discomfort. Patient other tired. No fever reported. November 07: Sitting up in a recliner. Appears comfortable. Had about half of breakfast. Surgery was consulted for the wound VAC.-They consulted wound care team. November 08: Reclining bed. Comfortable. Seen by Dr. Mercado's team for wound VAC. Applied. Urine culture pending. November 09: Comfortable. Tolerating diet. Urine cultures negative. Wound VAC in place. Eating about 25%. Sometimes more. Again tried to reach patient's son on the phone. Mailbox is full November 10: Up in a chair. Comfortable. Eating fair. No new symptoms. November 11: Patient comfortable. Tolerating diet. Spoke to patient's son over the phone. Updated. Urine culture has been negative. Completed short course of Ceftin for the UTI. Patient was not accepted at rehab. And patient's son Kai spoke to this case management manager and decided to take the patient home. [facility] care will be helping out. Wound care to continue. Discussion and discharge planning more than 35 minutes Past medical history to include: Dementia, diabetes, hypertension, osteoarthritis,, bipolar, discitis-lumbar, sacral decub is ulcer Social history: No smoking or alcohol history. Currently at rehab at [facility]. Patient's son Ar Ramírez is the POA. Physical examination: VITAL SIGNS: 98.1, 76, 18, 149 x 77, 99% room air GENERAL: Reclining in bed comfortable EYES: Pupils equal. Conjunctiva normal. HEENT: External appearance of nose and ears normal, oral cavity grossly normal. NECK: JVD not raised; masses not palpable. HEART: First and second heart sounds are normal; no edema. LUNGS: Respiratory rate normal; clear to auscultation. ABDOMEN: Soft, nontender, liver spleen not palpable, no masses palpable. [place] PSYCH: Answering simple questions DERMATOLOGICAL: Sacral decubitus ulcer with: Wound VAC MUSCULOSKELETAL:No Clubbing/cyanosis;muscles-grossly intact, OA INVESTIGATIONS, reviewed in the clinical context: November 07: White count 6.8 hemoglobin 9.2 potassium 3.3 creatinine 0.5 November 06: White count 7.2 hemoglobin 11.4 platelets 284 sodium 141 potassium 3.6 BUN 17 creatinine 0.47 UA: Leukoesterase positive. Nitrate negative. WBC 182 EKG tracing personally reviewed by me-normal sinus rhythm nonspecific T wave changes. Assessment and plan: -Possible UTI with cystitis. Culture negative IV ceftriaxone. DC on Omnicef-4 more doses -Stage 3 large sacral decubitus ulcer. Previous debridement by Dr. Atwood. Wound VAC in place As per patient wishes and the son no diverting colostomy-on last admission. Dr. Atwood consulted. Wound care team following for the wound VAC -Normocytic anemia of chronic disease: Follow H&H -Chronic medical debility. -Chronic constipation MiraLAX, senna plus, lactulose -Diabetes mellitus type 2 . Lantus Follow Accu-Cheks with sliding scale -Essential hypertension Lopressor 25 mg twice a day -June 2023: of lumbar discitis. Patient had surgery for the same. received antibiotics. -Cognitive impairment -Full code. -DPOA, Ar Ramírez. Son Disposition: Home Past Medical History Past Medical History: CVA/TIA, Dementia, Diabetes Mellitus, Hypertension, Osteoarthritis (OA) Additional Past Medical History / Comment(s): Pt states she is on an antibiotic for ear infection/throat infection at this time, TIA which affected speech, pt denies HTN but it is documented in past medical hx, diet controlled diabetes History of Any Multi-Drug Resistant Organisms: None Reported Past Surgical History: Orthopedic Surgery Additional Past Surgical History / Comment(s): I&D tooth abscess, left trigger finger surgery Past Anesthesia/Blood Transfusion Reactions: No Reported Reaction Past Psychological History: Anxiety, Bipolar, Depression Additional Psychological History / Comment(s): Pt states she sees a Dr. Ramírez for her mental health care. She resides with her granddaughter and [facility]. She does not drive. She gets to appts with family or friends or cab. uses no assistive devices. Smoking Status: Never smoker Past Alcohol Use History: None Reported Past Drug Use History: None Reported Plan - Discharge Summary Discharge Rx Participant: Yes New Discharge Prescriptions: New Cefdinir [Omnicef] 300 mg PO Q12HR #4 capsule Continue Apixaban [Eliquis] 5 mg PO BID Multivitamins, Thera [Multivitamin (formulary)] 1 tab PO DAILY Famotidine [Pepcid] 20 mg PO DAILY Lactulose 20 gm PO DAILY PRN PRN Reason: Constipation Cholecalciferol [Vitamin D3 (25 Mcg = 1000 Iu)] 25 mcg PO DAILY Ascorbic Acid [Vitamin C] 250 mg PO DAILY haloperidoL [Haldol] 2.5 mg PO HS #3 tab INSULIN LISPRO (HumaLOG) [humaLOG] See Protocol SQ AC-TID droNABinol [Marinol] 2.5 mg PO BID #6 cap Benztropine Mesylate [Cogentin] 2 mg PO HS sitaGLIPtin [Januvia] 50 mg PO DAILY Ferrous Sulfate [Iron] 325 mg PO DAILY Sennosides/Docusate Sodium [Senna Plus 8.6-50 mg Tablet] 1 tab PO BID polyethylene glycoL 3350 [Miralax] 17 gm PO BID Acetaminophen Tab [Tylenol] 500 mg PO Q6HR PRN tab PRN Reason: Fever And/ Or Pain Metoprolol Tartrate [Lopressor] 25 mg PO TID #0 Diclofenac Sodium Gel [Voltaren 1% Gel] 2 gm TOPICAL Q6H Insulin Glargine,Hum.rec.anlog [Lantus Solostar Pen] 10 units SQ DAILY Gabapentin [Neurontin] 100 mg PO BID #6 cap HYDROcodone/APAP 5-325MG [[place] 5-325] 1 tab PO Q4HR PRN #18 tab PRN Reason: Pain Discharge Medication List Apixaban [Eliquis] 5 mg PO BID 07/29/23 [History] Ascorbic Acid [Vitamin C] 250 mg PO DAILY 07/29/23 [History] Benztropine Mesylate [Cogentin] 2 mg PO HS 07/29/23 [History] Cholecalciferol [Vitamin D3 (25 Mcg = 1000 Iu)] 25 mcg PO DAILY 07/29/23 [History] Famotidine [Pepcid] 20 mg PO DAILY 07/29/23 [History] Ferrous Sulfate [Iron] 325 mg PO DAILY 07/29/23 [History] Lactulose 20 gm PO DAILY PRN 07/29/23 [History] Multivitamins, Thera [Multivitamin (formulary)] 1 tab PO DAILY 07/29/23 [History] Sennosides/Docusate Sodium [Senna Plus 8.6-50 mg Tablet] 1 tab PO BID 07/29/23 [History] polyethylene glycoL 3350 [Miralax] 17 gm PO BID 07/29/23 [History] sitaGLIPtin [Januvia] 50 mg PO DAILY 07/29/23 [History] Acetaminophen Tab [Tylenol] 500 mg PO Q6HR PRN tab 08/09/23 [Rx] Metoprolol Tartrate [Lopressor] 25 mg PO TID #0 08/09/23 [Rx] haloperidoL [Haldol] 2.5 mg PO HS #3 tab 08/09/23 [Rx] Diclofenac Sodium Gel [Voltaren 1% Gel] 2 gm TOPICAL Q6H 08/15/23 [History] INSULIN LISPRO (HumaLOG) [humaLOG] See Protocol SQ AC-TID 10/08/23 [History] Insulin Glargine,Hum.rec.anlog [Lantus Solostar Pen] 10 units SQ DAILY 10/08/23 [History] Gabapentin [Neurontin] 100 mg PO BID #6 cap 10/11/23 [Rx] Cefdinir [Omnicef] 300 mg PO Q12HR #4 capsule 11/11/23 [Rx] HYDROcodone/APAP 5-325MG [[place] 5-325] 1 tab PO Q4HR PRN #18 tab 11/11/23 [Rx] droNABinol [Marinol] 2.5 mg PO BID #6 cap 11/11/23 [Rx] Follow up Appointment(s)/Referral(s): [facility], [NON-STAFF] - 1 Week Maykel Mijares DO [Primary Care Provider] - 1 Week Phoebe Cotto MD [REFERRING] - 1-2 days Patient Instructions/Handouts: Urinary Tract Infection in Women (DC), How to Turn a Person in Bed (GEN), How to Prevent Pressure Injuries (GEN), Chronic Wounds (DC) Discharge Disposition: HOME WITH HOME HEALTH SERVICES
== END 2023-11-11 17:31 | disposition home health service (06) ==
LOC: EC 13:07 → 5NMEDONC 15:57
PROVIDERS: ADMIT Hospitalist; ATTEND Hospitalist
DX: N30.90 Cystitis, unspecified without hematuria (principal); E11.622 Type 2 diabetes mellitus with other skin ulcer; L89.154 Pressure ulcer of sacral region, stage 4; F03.90 Unspecified dementia, unspecified severity, without behavioral disturbance, psychotic disturbance, mood disturbance, and anxiety; R53.81 Other malaise; K59.09 Other constipation; D63.8 Anemia in other chronic diseases classified elsewhere; I10 Essential (primary) hypertension; F31.9 Bipolar disorder, unspecified; F41.9 Anxiety disorder, unspecified; Z86.73 Personal history of transient ischemic attack (TIA), and cerebral infarction without residual deficits; Z79.01 Long term (current) use of anticoagulants; Z79.84 Long term (current) use of oral hypoglycemic drugs; Z79.899 Other long term (current) drug therapy; Z88.2 Allergy status to sulfonamides
CPT/HCPCS: 96376 ×5; 96361 ×5; 96366 ×3; 96375 ×2; 96365; 99285; 36415; 94760; 93005; 97530; 97162; 97166; 83880; 80053 ×2; 83605; 83735 ×2; 84100 ×2; 84484; 85025 ×2; 85610; 85730; 81001 ×2; 87040; 87086; G0378 ×6; Q0167 ×5; J2405 ×2; J0696 ×4; J1170 ×3; C9113 ×5

== ENCOUNTER 2023-12-07 20:37 | Inpatient (IN) | payer MEDICARE ==
[2023-12-07 22:13] LABS: Basophils # (A) 0.1 k/uL (0-0.2); Basophils % (A) 0 %; Eosinophils # (A) 0.4 k/uL (0-0.7); Eosinophils % (A) 3 %; HCT 30.2 % (34.0-46.0); Lymphocytes # (A) 4.8 k/uL (1.0-4.8); Lymphocytes % (A) 39 %; MCH 29.9 pg (25.0-35.0); MCHC 32.2 g/dL (31.0-37.0); MCV 92.8 fL (80.0-100.0); Mean Platelet Volume 7.9; Monocytes # (A) 0.4 k/uL (0-1.0); Monocytes % (A) 4 %; Neutrophils # (A) 6.5 k/uL (1.3-7.7); Neutrophils % (A) 53 %; Platelet Count 332 k/uL (150-450); RBC 3.26 m/uL (3.80-5.40); WBC 12.3 k/uL (3.8-10.6)
[2023-12-07 22:23] LABS: INR 1.1 (<1.2); Partial Thromboplastin Time 26.5 sec (22.0-30.0); Prothrombin Time 11.7 sec (10.0-12.5)
[2023-12-07 22:26] LABS: HGB 9.7 gm/dL (11.4-16.0)
--- NOTE | 2023-12-07 22:32 | ED ---
Extremity Problem HPI - General Chief complaint: Extremity Problem,Nontraumatic Stated complaint: swollen feet possible blood clot Time Seen by Provider: 12/07/23 20:56 Source: family Mode of arrival: wheelchair - History of Present Illness Initial comments: 78-year-old female presented to the ED with a chief complaint of extremity problem. Patient has dementia and is a poor historian. Entirety of history obtained by the patient's son at bedside. Per patient's son, normally receives PT/OT and wound care at home. Reports over the past week has seemed to be more fatigued than usual and has had difficulties completing PT/OT. Reports that she has also had some falls however is unsure about any head injury. Additionally, reports over the past week patient has had some increased swelling to her bilateral lower legs. He does not note that the patient has been complaining of pain of her bilateral lower extremities. 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 They state that the patient has been complaining of chest pain as well however notes that this has been an ongoing issue. Are unable to tell me whether or not the patient has been complaining of pain more than usual lately. No fever or chills. No other complaints at this time. - Related Data Home Medications Medication Instructions Recorded Confirmed Apixaban [Eliquis] 5 mg PO BID 07/29/23 11/06/23 Ascorbic Acid [Vitamin C] 250 mg PO DAILY 07/29/23 11/06/23 Benztropine Mesylate [Cogentin] 2 mg PO HS 07/29/23 11/06/23 Cholecalciferol [Vitamin D3 (25 25 mcg PO DAILY 07/29/23 11/06/23 Mcg = 1000 Iu)] Famotidine [Pepcid] 20 mg PO DAILY 07/29/23 11/06/23 Ferrous Sulfate [Iron] 325 mg PO DAILY 07/29/23 11/06/23 Lactulose 20 gm PO DAILY PRN 07/29/23 11/06/23 Multivitamins, Thera [Multivitamin 1 tab PO DAILY 07/29/23 11/06/23 (formulary)] Sennosides/Docusate Sodium [Senna 1 tab PO BID 07/29/23 11/06/23 Plus 8.6-50 mg Tablet] polyethylene glycoL 3350 [Miralax] 17 gm PO BID 07/29/23 11/06/23 sitaGLIPtin [Januvia] 50 mg PO DAILY 07/29/23 11/06/23 Diclofenac Sodium Gel [Voltaren 1% 2 gm TOPICAL Q6H 08/15/23 11/06/23 Gel] INSULIN LISPRO (HumaLOG) [humaLOG] See Protocol SQ AC-TID 10/08/23 11/06/23 Insulin Glargine,Hum.rec.anlog 10 units SQ DAILY 10/08/23 11/06/23 [Lantus Solostar Pen] Previous Rx's Medication Instructions Recorded Acetaminophen Tab [Tylenol] 500 mg PO Q6HR PRN tab 08/09/23 Metoprolol Tartrate [Lopressor] 25 mg PO TID #0 08/09/23 haloperidoL [Haldol] 2.5 mg PO HS #3 tab 08/09/23 Gabapentin [Neurontin] 100 mg PO BID #6 cap 10/11/23 Cefdinir [Omnicef] 300 mg PO Q12HR #4 capsule 11/11/23 HYDROcodone/APAP 5-325MG [[place] 1 tab PO Q4HR PRN #18 tab 11/11/23 5-325] droNABinol [Marinol] 2.5 mg PO BID #6 cap 11/11/23 Allergies Allergy/AdvReac Type Severity Reaction Status Date / Time metformin Allergy Unknown Verified 11/06/23 15:34 Sulfa (Sulfonamide Allergy Unknown Verified 11/06/23 15:34 Antibiotics) Review of Systems ROS Statement: Those systems with pertinent positive or pertinent negative responses have been documented in the HPI. ROS Other: All systems not noted in ROS Statement are negative. Past Medical History Past Medical History: CVA/TIA, Dementia, Diabetes Mellitus, Hypertension, Osteoarthritis (OA) Additional Past Medical History / Comment(s): Pt states she is on an antibiotic for ear infection/throat infection at this time, TIA which affected speech, pt denies HTN but it is documented in past medical hx, diet controlled diabetes History of Any Multi-Drug Resistant Organisms: None Reported Past Surgical History: Orthopedic Surgery Additional Past Surgical History / Comment(s): I&D tooth abscess, left trigger finger surgery Past Anesthesia/Blood Transfusion Reactions: No Reported Reaction Past Psychological History: Anxiety, Bipolar, Depression Smoking Status: Never smoker Past Alcohol Use History: None Reported Past Drug Use History: None Reported - Past Family History Father Family Medical History: No Reported History Mother Family Medical History: No Reported History General Exam General appearance: alert Eye exam: Present: normal appearance Neck exam: Present: normal inspection Respiratory exam: Present: normal lung sounds bilaterally Cardiovascular Exam: Present: regular rate Extremities exam: Present: other (1+ pitting edema bilateral lower extremities. DP/PT pulse palpable.) Skin exam: Present: warm, dry Course Vital Signs 12/07/23 12/07/23 12/07/23 20:46 21:30 22:00 Temperature 98.4 F Pulse Rate 85 90 90 Respiratory 18 20 20 Rate Blood Pressure 139/81 141/71 141/71 O2 Sat by Pulse 97 96 95 Oximetry 12/08/23 00:00 Temperature Pulse Rate 87 Respiratory 16 Rate Blood Pressure 138/76 O2 Sat by Pulse 97 Oximetry Medical Decision Making - Medical Decision Making Was pt. sent in by a medical professional or institution (, PA, CLOTH EXAMINER HAND, urgent care, hospital, or fci...) When possible be specific @ -No Did you speak to anyone other than the patient for history (EMS, parent, family, police, friend...)? What history was obtained from this source @ -Entirety of the history provided by the patient's son. For further details please see HPI. Did you review nursing and triage notes (agree or disagree)? Why? @ -I reviewed and agree with nursing and triage notes Were old charts reviewed (outside hosp., previous admission, EMS record, old EKG, old radiological studies, urgent care reports/EKG's, fci records)? Report findings @ -No old charts were reviewed Differential Diagnosis (chest pain, altered mental status, abdominal pain women, abdominal pain men, vaginal bleeding, weakness, fever, dyspnea, syncope, headache, dizziness, GI bleed, back pain, seizure, CVA, palpatations, mental health, musculoskeletal)? @ -Differential Weakness: Hypoglycemia, shock, sepsis, hyponatremia, anemia, infection, PR, ETOH, adverse medicine reaction, overdose, stroke, this is not meant to be an all-inclusive list. Differential Musculoskeletal Muscular strain, contusion, ligament sprain, fracture, arthritis, septic arthritis, bursitis, cellulitis, muscle spasm, nerve compression, DVT, arterial occlusion, herpes zoster, electrolyte abnormality, tumor.... This is not meant to be in all inclusive list EKG interpreted by me (3pts min.). @ -EKG interpreted by me showing a sinus rhythm at [address] or T wave changes at a rate of 89 bpm. W[place] 165, QRS 71, QT/QTc 346/392. Interpretation limited by artifact. X-rays interpreted by me (1pt min.). @ -Chest x-ray interpreted me showing some bibasilar opacities opacities. X-ray of sacrum/coccyx interpreted me showing soft tissue gas posterior to the coccyx likely related to ulcer. CT interpreted by me (1pt min.). @ -CT brain/cervical spine interpreted me showing no evidence of acute finding. U/S interpreted by me (1pt. min.). @ -Ultrasound bilateral lower extremities interpreted me showing no evidence of DVT. What testing was considered but not performed or refused? (CT, X-rays, U/S, labs)? Why? @ -None What meds were considered but not given or refused? Why? @ -None Did you discuss the management of the patient with other professionals (professionals i.e. , PA, CLOTH EXAMINER HAND, lab, RT, psych nurse, social insurance analyst, hotel maintenance engineer, teacher, chief security officer, case making machine operator)? Give summary @ -Case discussed with Dr. Sultana, who accepts admission Was smoking cessation discussed for >3mins.? @ -No Was critical care preformed (if so, how long)? @ -No Were there social determinants of health that impacted care today? How? (Homelessness, low income, unemployed, alcoholism, drug addiction, transpor tation, low edu. Level, literacy, decrease access to med. care, correction, rehab)? @ -No Was there de-escalation of care discussed even if they declined (Discuss DNR or withdrawal of care, Hospice)? DNR status @ -No What co-morbidities impacted this encounter? (DM, HTN, Smoking, COPD, CAD, Cancer, CVA, ARF, Chemo, Hep., AIDS, mental health diagnosis, sleep apnea, morbid obesity)? @ -Dementia Was patient admitted / discharged? Hospital course, mention meds given and route, prescriptions, significant lab abnormalities, going to OR and other pertinent info. @ -Admission 78-year-old female with a history of dementia presenting with his son. Per son over the past week has had increasing generalized fatigue. So much so that she has had difficulties completing PT/OT at home and has some frequent falls as well. Unsure of any head injury. Patient is on Eliquis. Additionally son notes that she has had some increasing leg swelling. At this time it is di fficult to obtain a history from patient's secondary to history of dementia however patient does not seem to have any complaints. She did note some chest pain however per family this has been going on for a while and they are unable to differentiate if she has been complaining of this more often than usual. Also did note that she does receive regular care from wound nurse and did note a possibility of placing a wound VAC on her ulcer however this was never completed. Wound VAC was placed here in the ED. Patient was unable to provide us a urine sample and bladder scan did show 600-700 cc. [place] catheter was placed. UA pending at this time. Culture was obtained from patient's wound. Laboratory studies reviewed. CBC significant for an elevated white blood cell count of 12.9. Some anemia with hemoglobin at 9.7 however this appears to be around baseline. Chemistry panel largely unremarkable. Troponin undetectable. BNP 188. Serology panel unremarkable. Chest x-ray did show bibasilar opacities possibly due to atelectasis or developing infiltrate. At this time patient has no complaints of cough. X-ray of the sacrum/coccyx did show soft tissue gas posterior to the coccyx likely related to ulcer. No other acute findings on this image. Venous Doppler studies revealed no acute findings. CT cervical spine and head revealed no evidence of acute bleed. Patient will be admitted to consult with PT/OT. Additionally consult will be placed to wound care. Undiagnosed new problem with uncertain prognosis? @ -No Drug Therapy requiring intensive monitoring for toxicity (Heparin, Nitro, Insulin, Cardizem)? @ -No Were any procedures done? @ -No Diagnosis/symptom? @ -Generalized fatigue, falls, chronic ulcer Acute, or Chronic, or Acute on Chronic? @ -Acute Uncomplicated (without systemic symptoms) or Complicated (systemic symptoms)? @ -Uncomplicated Side effects of treatment? @ -No Exacerbation, Progression, or Severe Exacerbation? @ -No Poses a threat to life or bodily function? How? (Chest pain, [place], PR, pneumonia, PE, COPD, DKA, ARF, appy, cholecystitis, CVA, Diverticulitis, Homicidal, Suicidal, threat to staff... and all critical care pts) @ -No - Lab Data Result diagrams: 12/07/23 21:58 12/07/23 21:58 Lab Results 12/07/23 12/07/23 12/07/23 Range/Units 21:58 21:58 21:58 WBC 12.3 H (3.8-10.6) k/uL RBC 3.26 L (3.80-5.40) m/uL Hgb 9.7 L D (11.4-16.0) gm/dL Hct 30.2 L (34.0-46.0) % MCV 92.8 (80.0-100.0) fL MCH 29.9 (25.0-35.0) pg MCHC 32.2 (31.0-37.0) g/dL RDW 15.0 (11.5-15.5) % Plt Count 332 (150-450) k/uL MPV 7.9 Neutrophils % 53 % Lymphocytes % 39 % Monocytes % 4 % Eosinophils % 3 % Basophils % 0 % Neutrophils # 6.5 (1.3-7.7) k/uL Lymphocytes # 4.8 (1.0-4.8) k/uL Monocytes # 0.4 (0-1.0) k/uL Eosinophils # 0.4 (0-0.7) k/uL Basophils # 0.1 (0-0.2) k/uL PT 11.7 (10.0-12.5) sec INR 1.1 (<1.2) APTT 26.5 (22.0-30.0) sec Sodium 134 L (137-145) mmol/L Potassium 4.4 (3.5-5.1) mmol/L Chloride 108 H (98-107) mmol/L Carbon Dioxide 20 L (22-30) mmol/L Anion Gap 6 mmol/L BUN 20 H (7-17) mg/dL Creatinine 0.63 (0.52-1.04) mg/dL Est GFR (CKD-EPI)AfAm >90 (>60 ml/min/1.73 sqM) Est GFR (CKD-EPI)NonAf 87 (>60 ml/min/1.73 sqM) Glucose 154 H (74-99) mg/dL Calcium 9.2 (8.4-10.2) mg/dL Magnesium 2.0 (1.6-2.3) mg/dL Total Bilirubin 0.8 (0.2-1.3) mg/dL AST 46 H (14-36) U/L ALT 22 (4-34) U/L Alkaline Phosphatase 142 H (38-126) U/L Troponin I (0.000-0.034) ng/mL NT-Pro-B Natriuret Pep 188 pg/mL Total Protein 9.0 H (6.3-8.2) g/dL Albumin 3.5 (3.5-5.0) g/dL Urine Color Urine Appearance (Clear) Urine pH (5.0-8.0) Ur Specific [place] (1.001-1.035) Urine Protein (Negative) Urine Glucose (UA) (Negative) Urine Ketones (Negative) Urine Blood (Negative) Urine Nitrite (Negative) Urine Bilirubin (Negative) Urine Urobilinogen (<2.0) mg/dL Ur Leukocyte Esterase (Negative) Urine RBC (0-5) /hpf Urine WBC (0-5) /hpf Ur Squamous Epith Cells (0-4) /hpf Amorphous Sediment (None) /hpf Urine Bacteria (None) /hpf Hyaline Casts (0-2) /lpf Urine Yeast (Budding) (None) /hpf Influenza Type A (PCR) (Not Detectd) Influenza Type B (PCR) (Not Detectd) RSV (PCR) (Not Detectd) SARS-CoV-2 (PCR) (Not Detectd) 12/07/23 12/07/23 12/08/23 Range/Units 21:58 22:41 03:15 WBC (3.8-10.6) k/uL RBC (3.80-5.40) m/uL Hgb (11.4-16.0) gm/dL Hct (34.0-46.0) % MCV (80.0-100.0) fL MCH (25.0-35.0) pg MCHC (31.0-37.0) g/dL RDW (11.5-15.5) % Plt Count (150-450) k/uL MPV Neutrophils % % Lymphocytes % % Monocytes % % Eosinophils % % Basophils % % Neutrophils # (1.3-7.7) k/uL Lymphocytes # (1.0-4.8) k/uL Monocytes # (0-1.0) k/uL Eosinophils # (0-0.7) k/uL Basophils # (0-0.2) k/uL PT (10.0-12.5) sec INR (<1.2) APTT (22.0-30.0) sec Sodium (137-145) mmol/L Potassium (3.5-5.1) mmol/L Chloride (98-107) mmol/L Carbon Dioxide (22-30) mmol/L Anion Gap mmol/L BUN (7-17) mg/dL Creatinine (0.52-1.04) mg/dL Est GFR (CKD-EPI)AfAm (>60 ml/min/1.73 sqM) Est GFR (CKD-EPI)NonAf (>60 ml/min/1.73 sqM) Glucose (74-99) mg/dL Calcium (8.4-10.2) mg/dL Magnesium (1.6-2.3) mg/dL Total Bilirubin (0.2-1.3) mg/dL AST (14-36) U/L ALT (4-34) U/L Alkaline Phosphatase (38-126) U/L Troponin I <0.012 (0.000-0.034) ng/mL NT-Pro-B Natriuret Pep pg/mL Total Protein (6.3-8.2) g/dL Albumin (3.5-5.0) g/dL Urine Color Colorless Urine Appearance Clear (Clear) Urine pH 6.0 (5.0-8.0) Ur Specific [place] 1.010 (1.001-1.035) Urine Protein Negative (Negative) Urine Glucose (UA) Negative (Negative) Urine Ketones Negative (Negative) Urine Blood Trace H (Negative) Urine Nitrite Positive H (Negative) Urine Bilirubin Negative (Negative) Urine Urobilinogen <2.0 (<2.0) mg/dL Ur Leukocyte Esterase Small H (Negative) Urine RBC 1 (0-5) /hpf Urine WBC 16 H (0-5) /hpf Ur Squamous Epith Cells <1 (0-4) /hpf Amorphous Sediment Rare H (None) /hpf Urine Bacteria Occasional H (None) /hpf Hyaline Casts 3 H (0-2) /lpf Urine Yeast (Budding) Occasional H (None) /hpf Influenza Type A (PCR) Not Detected (Not Detectd) Influenza Type B (PCR) Not Detected (Not Detectd) RSV (PCR) Not Detected (Not Detectd) SARS-CoV-2 (PCR) Not Detected (Not Detectd) Disposition Clinical Impression: Fatigue, Leg swelling Disposition: ADMITTED IP TO THIS [facility] Condition: Good Referrals: Janet Sultana MD [Primary Care Provider] - 1-2 days Time of Disposition: 03:30
[2023-12-07 22:33] LABS: ALT 22 U/L (4-34); African American GFR (CKD) >90 (>60 ml/min/1.73 sqM); Albumin 3.5 g/dL (3.5-5.0); Anion Gap 6 mmol/L; Blood Urea Nitrogen 20 mg/dL (7-17); Calcium 9.2 mg/dL (8.4-10.2); Carbon Dioxide 20 mmol/L (22-30); Chloride 108 mmol/L (98-107); Glucose 154 mg/dL (74-99); Non-African American GFR(CKD) 87 (>60 ml/min/1.73 sqM); Sodium 134 mmol/L (137-145); Total Bilirubin 0.8 mg/dL (0.2-1.3)
[2023-12-07 22:41] LABS: NT-Pro-B-Type Natriuretic Pept 188 pg/mL
[2023-12-07 22:44] LABS: AST 46 U/L (14-36); Alkaline Phosphatase 142 U/L (38-126); Potassium 4.4 mmol/L (3.5-5.1)
--- NOTE | 2023-12-07 23:09 | CT ---
EXAMINATION TYPE: CT brain cspine wo con CT DLP: 1225.3 mGycm, Automated exposure control for dose reduction was used. DATE OF EXAM: 12/07/2023 10:36 PM COMPARISON: None. CLINICAL INDICATION:Female, 78 years old with history of fall on eliquis; pain, fall on blood thinner s TECHNIQUE: Brain: Multiple axial CT images of the brain were obtained without IV contrast. Cspine: Axial CT images from the skull base to the inferior aspect of T2 we obtained without intraven ous contrast. Coronal and sagittal reformatted images were also reviewed. FINDINGS: Brain: Extra-axial spaces: No abnormal extra-axial fluid collections. Ventricular system: Appear dilated in proportion to the degree of cerebral atrophy. Cerebral parenchyma: No increased attenuation to suggest acute intraparenchymal hemorrhage. The gra y-white matter interface appears maintained. Mild/moderate generalized brain atrophy. Scattered hyp oattenuating areas are seen within the cerebral white matter, nonspecific but most often seen with ch ronic microvascular ischemic changes; mild/moderate in degree. Cerebellum: No acute abnormality. Mass effect: No evidence of mass effect or midline shift. Intracranial vasculature: Unremarkable Soft tissues: Normal. Visualized orbits: Orbital contents appear grossly intact. Calvarium/osseous structures: No evidence of calvarial fracture. Bones appear osteopenic. Paranasal sinuses and mastoid air cells: Paranasal sinuses are clear. There is minimal opacification of a couple of posterior mastoid air cells on the left. No fracture is seen. MRI is more sensitive for detecting acute processes such as infarct, and may be considered if clinica lly warranted. Cervical spine: Assessment is limited by generalized osteopenia, chronic/degenerative changes, and the patient's rota gregory head position. Fracture: No clear evidence of acute fracture lucency. Osseous structures, spinal canal/neural foramina: Generalized osteopenia. The craniocervical junction appears intact, with chronic degenerative changes of the atlantooccipital joints. Mild/moderate heel turner barbara degenerative change of the anterior C1-C2 articulation, with small cystic spaces in the dens and spindle-shaped retrodental soft tissue density which causes at least moderate spinal canal stenosis, and mass effect on the cervical medullary junction cannot be excluded. Relatively mild degenerative disc disease changes, however there are bulky anterior flowing marginal osteophytes throughout the cervical and into the upper thoracic spine, compatible with DISH. Mild to moderate facet disease throughout, greatest at the C2-C3 level. From C2-C3 inferiorly, there seem to be generally mild neural foraminal and spinal canal stenoses. Vertebral alignment: No traumatic malal ignment. Slight straightening of the normal cervical lordosis inferiorly. Neck soft tissues: No acute finding.. Calcifications noted involving the cervical carotid arteries mo stly bifurcation regions. Other: Lung apices show no acute infiltrate or pneumothorax. Airway appears patent. IMPRESSION: CT head: 1. No CT evidence of an acute intracranial abnormality. 2. Atrophy and chronic microvascular ischemic white matter changes. CT cervical spine: 1. No evidence of acute cervical spine fracture or traumatic malalignment. 2. Generalized osteopenia, with chronic/degenerative changes described above including changes of DI SH. 3. 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 This causes at least moderate spinal canal stenosis, and mass effect on the cervicomedulla ry junction cannot be excluded. If clinically warranted/the patient has neurologic symptoms, MRI coul d be obtained for further evaluation.
[2023-12-07] MEDS: KETOROLAC 15 MG/ML 1 ML VIAL IVP STA (23:26)
--- NOTE | 2023-12-07 23:33 | US ---
EXAMINATION TYPE: US venous doppler duplex LE BI DATE OF EXAM: 12/07/2023 11:06 PM COMPARISON: 10/10/2023 - UE Venous 11/06/2022 - LE Venous CLINICAL INDICATION: Female, 78 years old with history of hx dvt. increased leg swelling; Hx DVT Left Popliteal and Right Axial vein; Patient is on blood thinners; Foot swelling ?x 1 week - family unsur e of duration. SIDE PERFORMED: Bilateral TECHNIQUE: Grayscale, color doppler, spectral doppler imaging performed of the deep veins of the low er extremities. There is normal flow, compressibility, vascular waveforms. VESSELS IMAGED: Common Femoral Vein Deep Femoral Vein Greater Saphenous Vein * Femoral Vein Popliteal Vein Small Saphenous Vein * Proximal Calf Veins (* superficial vessels) Right Leg: Negative for DVT Left Leg: Negative for DVT IMPRESSION: No evidence of DVT in the bilateral lower extremities.
--- NOTE | 2023-12-07 23:44 | XR ---
EXAMINATION TYPE: XR sacrum coccyx DATE OF EXAM: 12/07/2023 10:40 PM CLINICAL INDICATION:Female, 78 years old with history of chronic wound r/o osteo; [facility] COMPARISON: None TECHNIQUE: The sacrum and coccyx was examined in frontal and lateral projections. FINDINGS: Decreased attenuation posterior to the coccyx likely represents soft tissue gas which could be relate d to sacral decubitus ulcer. This does appear to come in close proximity to the dorsal margin of the bone. Severe osseous demineralization limits evaluation for acute process, however no acute displaced fract ure or osseous destructive changes is identified. Degenerative changes of the lower lumbar spine with pedicle screws and posterior fixation rods. Moder ate degenerative changes of the SI joints and partially imaged hips. Spherical calcifications project ed over the pelvis are probably related to fibroids. Multiple phleboliths are also seen. IMPRESSION: 1. Soft tissue gas posterior to the coccyx likely related to decubitus ulcer. 2. No clear radiographic evidence of an acute bony abnormality. 3. Osteopenia and chronic/degenerative changes.
--- NOTE | 2023-12-08 00:19 | XR ---
EXAMINATION TYPE: XR chest 2V DATE OF EXAM: 12/07/2023 10:40 PM CLINICAL INDICATION:Female, 78 years old with history of Chest Pain; [facility] COMPARISON: 10/07/2023 TECHNIQUE: XR chest 2V. Frontal and lateral views of the chest.. FINDINGS: Lines/Tubes/Devices: No indwelling lines are seen. EKG leads and other extrinsic densities the chest. Heart/mediastinum: Heart size is prominent which could be exaggerated by the low lung volumes. Media stinum appears within normal limits. Pulmonary vascularity: Not increased, Lungs/Pleura: Lung volumes are diminished with crowding of the bronchovascular markings. There are bi basilar opacities, left greater than right with partial obscuration of the left hemidiaphragm and mil d blunting of the costophrenic angle. Right costophrenic angle is sharp. No evidence of pneumothorax. Musculoskeletal: No acute osseous abnormality demonstrated in the limits of the exam. Degenerative c hanges of the shoulders and spine. Partially seen upper lumbar posterior fixation hardware. Other findings: None. IMPRESSION: 1. Heart size is prominent. 2. Decreased lung volumes. Bibasilar opacities, left greater than right, could be due to atelectasis or developing infiltrate. Follow-up as clinically warranted.
[2023-12-08 03:32] LABS: Amorphous Sediment,Urine Rare /hpf; Appearance,Urine Clear (Clear); Bacteria,Urine Occasional /hpf; Bilirubin,Urine Negative (Negative); Blood,Urine Trace (Negative); Budding Yeast,Urine Occasional /hpf; Color,Urine Colorless; Glucose,Urine (UA) Negative (Negative); Hyaline Casts,Urine 3 /lpf (0-2); Ketones,Urine Negative (Negative); Leukocyte Esterase,Urine Small (Negative); Nitrite,Urine Positive (Negative); Protein,Urine Negative (Negative); RBC,Urine 1 /hpf (0-5); Squamous Epithelial Cell,Urine <1 /hpf (0-4); Urobilinogen,Urine <2.0 mg/dL (<2.0); WBC,Urine 16 /hpf (0-5)
[2023-12-08] MEDS ORDERED: NALOXONE 0.4 MG/ML 1 ML VIAL IV PRN (03:59)
[2023-12-08] MEDS ORDERED: ONDANSETRON 4 MG/2 ML VIAL IVP PRN (03:59)
[2023-12-08] MEDS ORDERED: ACETAMINOPHEN TAB 325 MG TAB PO PRN (03:59)
[2023-12-08] MEDS ORDERED: DEXTROSE 50% SYRINGE 50 ML IVP PRN ×2 (04:06)
[2023-12-08] MEDS: SODIUM CHLORIDE 0.9% 1,000 ML IV SCH (04:08)
[2023-12-08 06:12] LABS: Glucose,Whole Blood 138 mg/dL (70-110)
[2023-12-08] MEDS: INSULIN ASPART (NovoLOG) 100 UNIT/ML VIAL SQ SCH (06:26)
[2023-12-08] MEDS: APIXABAN 5 MG TAB PO SCH (09:13)
--- NOTE | 2023-12-08 10:41 | P.HPIM ---
History of Present Illness H&P Date: 12/08/23 this is a 78-year-old female patient who presented to the ER with concerns of increased weakness. Patient is a poor historian and there is currently no family at bedside most history is obtained from medical record patient has past medical history of dementia, CVA, diabetes mellitus, hypertension, osteoarthritis, wounds in which she follows with wound care and PT OT. Patient has decubitus ulcer. Anxiety, bipolar and depression. According to records patient has had increasing frequent falls and completing PT OT at home. Head and cervical CT completed showing no evidence of acute cervical spine fracture or traumatic malalignment. Generalized osteopenia. 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 Bilateral lower extremity venous Doppler completed showing negative for DVT. X-ray of sacrum and coccyx completed showing soft tissue gas posterior to the Sleep around related to decubitus ulcer no clear radiographic evidence of acute bony abnormality. Chest x-ray completed showing heart size is prominent increased lung volumes by basilar opacities left greater than right could be due to atelectasis or developing infiltrate. Current vital signs temp 98.2, heart rate 91, respiratory 18, blood pressure 124/62 with pulse ox 96% on room air. Influenza RSV COVID-19 negative UA showing small amount of leukocyte Estrace will order urine culture. White blood cell 12.3 hemoglobin 9.7. At this time patient will be admitted infectious disease service is consulted wound care service is consulted. Urine and wound cultures ordered Review of Systems Visit for HPI otherwise unremarkable Past Medical History Past Medical History: CVA/TIA, Dementia, Diabetes Mellitus, Hypertension, Osteoarthritis (OA) Additional Past Medical History / Comment(s): Pt states she is on an antibiotic for ear infection/throat infection at this time, TIA which affected speech, pt denies HTN but it is documented in past medical hx, diet controlled diabetes History of Any Multi-Drug Resistant Organisms: None Reported Past Surgical History: Orthopedic Surgery Additional Past Surgical History / Comment(s): I&D tooth abscess, left trigger finger surgery Past Anesthesia/Blood Transfusion Reactions: No Reported Reaction Past Psychological History: Anxiety, Bipolar, Depression Additional Psychological History / Comment(s): Pt states she sees a Dr. Ramírez for her mental health care. She resides with her granddaughter and [facility]. She does not drive. She gets to appts with family or friends or cab. uses no assistive devices. Smoking Status: Never smoker Past Alcohol Use History: None Reported Past Drug Use History: None Reported - Past Family History Father Family Medical History: No Reported History Mother Family Medical History: No Reported History Medications and Allergies Home Medications Medication Instructions Recorded Confirmed Type Apixaban [Eliquis] 5 mg PO BID 07/29/23 11/06/23 History Ascorbic Acid [Vitamin C] 250 mg PO DAILY 07/29/23 11/06/23 History Benztropine Mesylate [Cogentin] 2 mg PO HS 07/29/23 11/06/23 History Cholecalciferol [Vitamin D3 (25 25 mcg PO DAILY 07/29/23 11/06/23 History Mcg = 1000 Iu)] Famotidine [Pepcid] 20 mg PO DAILY 07/29/23 11/06/23 History Ferrous Sulfate [Iron] 325 mg PO DAILY 07/29/23 11/06/23 History Lactulose 20 gm PO DAILY PRN 07/29/23 11/06/23 History Multivitamins, Thera [Multivitamin 1 tab PO DAILY 07/29/23 11/06/23 History (formulary)] Sennosides/Docusate Sodium [Senna 1 tab PO BID 07/29/23 11/06/23 History Plus 8.6-50 mg Tablet] polyethylene glycoL 3350 [Miralax] 17 gm PO BID 07/29/23 11/06/23 History sitaGLIPtin [Januvia] 50 mg PO DAILY 07/29/23 11/06/23 History Acetaminophen Tab [Tylenol] 500 mg PO Q6HR PRN tab 08/09/23 11/06/23 Rx Metoprolol Tartrate [Lopressor] 25 mg PO TID #0 08/09/23 11/06/23 Rx haloperidoL [Haldol] 2.5 mg PO HS #3 tab 08/09/23 11/06/23 Rx Diclofenac Sodium Gel [Voltaren 1% 2 gm TOPICAL Q6H 08/15/23 11/06/23 History Gel] INSULIN LISPRO (HumaLOG) [humaLOG] See Protocol SQ AC-TID 10/08/23 11/06/23 History Insulin Glargine,Hum.rec.anlog 10 units SQ DAILY 10/08/23 11/06/23 History [Lantus Solostar Pen] Gabapentin [Neurontin] 100 mg PO BID #6 cap 10/11/23 11/06/23 Rx Cefdinir [Omnicef] 300 mg PO Q12HR #4 capsule 11/11/23 Rx HYDROcodone/APAP 5-325MG [Smiley 1 tab PO Q4HR PRN #18 tab 11/11/23 Rx 5-325] droNABinol [Marinol] 2.5 mg PO BID #6 cap 11/11/23 Rx Allergies Allergy/AdvReac Type Severity Reaction Status Date / Time metformin Allergy Unknown Verified 11/06/23 15:34 Sulfa (Sulfonamide Allergy Unknown Verified 11/06/23 15:34 Antibiotics) Physical Exam Vitals: Vital Signs Temp Pulse Pulse Resp BP BP Pulse Ox 12/08/23 07:08 98.2 F 91 18 124/62 96 12/08/23 04:00 90 18 130/64 95 12/08/23 00:00 87 16 138/76 97 12/07/23 22:00 90 20 141/71 95 12/07/23 21:30 90 20 141/71 96 12/07/23 20:46 98.4 F 85 18 139/81 97 Intake and Output 12/07/23 12/08/23 12/08/23 21:59 06:59 14:59 Output Total Balance Output: Urine Other: Weight Head normocephalic Neck supple Lungs clear to auscultation bilaterally no wheezing or crackles Heart regular rate and rhythm S1-S2, no rub or gallop Abdomen is soft nontender nondistended positive bowel sounds no hepatosplenomegaly Extremities no edema Neuro alert and orientated to 1. Known dementia Decubitus ulcer noted coccyx Results CBC & Chem 7: 12/07/23 21:58 12/07/23 21:58 Labs: Abnormal Lab Results - Last 24 Hours (Table) 12/07/23 12/07/23 12/08/23 Range/Units 21:58 21:58 03:15 WBC 12.3 H (3.8-10.6) k/uL RBC 3.26 L (3.80-5.40) m/uL Hgb 9.7 L D (11.4-16.0) gm/dL Hct 30.2 L (34.0-46.0) % Sodium 134 L (137-145) mmol/L Chloride 108 H (98-107) mmol/L Carbon Dioxide 20 L (22-30) mmol/L BUN 20 H (7-17) mg/dL Glucose 154 H (74-99) mg/dL POC Glucose (mg/dL) (70-110) mg/dL AST 46 H (14-36) U/L Alkaline Phosphatase 142 H (38-126) U/L Total Protein 9.0 H (6.3-8.2) g/dL Urine Blood Trace H (Negative) Urine Nitrite Positive H (Negative) Ur Leukocyte Esterase Small H (Negative) Urine WBC 16 H (0-5) /hpf Amorphous Sediment Rare H (None) /hpf Urine Bacteria Occasional H (None) /hpf Hyaline Casts 3 H (0-2) /lpf Urine Yeast (Budding) Occasional H (None) /hpf 12/08/23 Range/Units 06:11 WBC (3.8-10.6) k/uL RBC (3.80-5.40) m/uL Hgb (11.4-16.0) gm/dL Hct (34.0-46.0) % Sodium (137-145) mmol/L Chloride (98-107) mmol/L Carbon Dioxide (22-30) mmol/L BUN (7-17) mg/dL Glucose (74-99) mg/dL POC Glucose (mg/dL) 138 H (70-110) mg/dL AST (14-36) U/L Alkaline Phosphatase (38-126) U/L Total Protein (6.3-8.2) g/dL Urine Blood (Negative) Urine Nitrite (Negative) Ur Leukocyte Esterase (Negative) Urine WBC (0-5) /hpf Amorphous Sediment (None) /hpf Urine Bacteria (None) /hpf Hyaline Casts (0-2) /lpf Urine Yeast (Budding) (None) /hpf Thrombosis Risk Factor Assmnt - Choose All That Apply Each Factor Represents 1 point: Obesity (BMI >25), Swollen legs (current) Each Risk Factor Represents 3 Points: Age 75 years or older, History of DVT/PE Other congenital or acquired thrombophilia - If yes, enter type in comment: No Thrombosis Risk Factor Assessment Total Risk Factor Score: 8 Thrombosis Risk Factor Assessment Level: High Risk Assessment and Plan Assessment: 1. Increased weakness and falls 2. Stage III decubitus ulcer. Patient follows with wound care 3. History of diabetes mellitus type 2 4. History of dementia 5. History of anemia 6. History of lumbar discitis 7. History of essential hypertension DVT prophylaxis eliquis. GI prophylaxis Protonix Infectious disease Wound Care service is consulted Wound and urine cultures ordered Awaiting pharmacy verification of home medication Repeat labs ordered in a.m. PT OT and social work services consulted Time with Patient: Greater than 30 (Greater than 60% of the total time spent in counseling and coordination of care)
[2023-12-08 11:13] LABS: Glucose,Whole Blood 121 mg/dL (70-110)
[2023-12-08] MEDS ORDERED: LACTULOSE 20 GM/30 ML CUP PO PRN (14:30)
[2023-12-08 16:28] LABS: Glucose,Whole Blood 138 mg/dL (70-110)
[2023-12-08] MEDS: LINAGLIPTIN 5 MG TABLET PO SCH (17:03)
[2023-12-08] MEDS: METOPROLOL TARTRATE 25 MG TAB PO SCH (17:03)
[2023-12-08 20:47] LABS: Glucose,Whole Blood 107 mg/dL (70-110)
--- NOTE | 2023-12-08 20:58 | P.CONS ---
History of Present Illness - Reason for Consult Consult date: 12/08/23 Wounds Requesting physician: Janet Sultana - Chief Complaint Fatigue and weakness x few days - History of Present Illness Patient is a 78-year-old -[place] Citizen female with a past medical history significant for diabetes mellitus hypertension osteoarthritis CVA TIA patient also have a history of infected sacral pressure ulcer with underlying osteomyelitis with a culture positive for Pseudomonas aeruginosa Cristina and Enterococcus faecalis back in July 2023 for the patient has completed her antibiotic therapy and has been off antibiotic for couple of weeks now patient to follow at [facility] wound care [place] for local wound care patient was brought into the hospital last night for apparently concern for lower extremity swelling and the patient has been more fatigued than usual and have difficulties completing PT OT there is no clear history of any fever or any chills and no fever was recorded on presentation to the hospital, patient is breathing comfortably on room air no significant cough sputum production choking on the food vomiting or diarrhea was reported by the son at the bedside patient did have a Quintanilla catheter with a positive UA on admission and did have a white count of 12.3 creatinine was normal liver isms are normal influenza RSV COVID testing was negative patient did have a sacral x-ray did not show any bony erosion chest x-ray heart size is prominent decreased lung volumes with bibasilar opacity atelectasis or developing infiltrate lower extremity Doppler was negative for DVT infectious disease was consulted for further management of her sacral wound and need for antibiotic therapy patient currently to have a wound VAC for her s acral wound Review of Systems Positive point and negatives has been mentioned in the HPI, complete review of systems was performed and all other systems are negative Past Medical History Past Medical History: CVA/TIA, Dementia, Diabetes Mellitus, Hypertension, Osteoarthritis (OA) Additional Past Medical History / Comment(s): Pt states she is on an antibiotic for ear infection/throat infection at this time, TIA which affected speech, pt denies HTN but it is documented in past medical hx, diet controlled diabetes History of Any Multi-Drug Resistant Organisms: None Reported Past Surgical History: Orthopedic Surgery Additional Past Surgical History / Comment(s): I&D tooth abscess, left trigger finger surgery Past Anesthesia/Blood Transfusion Reactions: No Reported Reaction Past Psychological History: Anxiety, Bipolar, Depression Additional Psychological History / Comment(s): Pt states she sees a Dr. Ramírez for her mental health care. She [facility] She does not drive. She gets to app with family or friends or cab. uses no assistive devices. Smoking Status: Never smoker Past Alcohol Use History: None Reported Past Drug Use History: None Reported - Past Family History Father Family Medical History: No Reported History Mother Family Medical History: No Reported History Medications and Allergies Home Medications Medication Instructions Recorded Confirmed Type Apixaban [Eliquis] 5 mg PO BID 07/29/23 12/08/23 History Ascorbic Acid [Vitamin C] 250 mg PO DAILY 07/29/23 12/08/23 History Benztropine Mesylate [Cogentin] 2 mg PO HS 07/29/23 12/08/23 History Cholecalciferol [Vitamin D3 (25 25 mcg PO DAILY 07/29/23 12/08/23 History Mcg = 1000 Iu)] Famotidine [Pepcid] 20 mg PO DAILY 07/29/23 12/08/23 History Ferrous Sulfate [Iron] 325 mg PO DAILY 07/29/23 12/08/23 History Lactulose 20 gm PO DAILY PRN 07/29/23 12/08/23 History Multivitamins, Thera [Multivitamin 1 tab PO DAILY 07/29/23 12/08/23 History (formulary)] Sennosides/Docusate Sodium [Senna 1 tab PO BID 07/29/23 12/08/23 History Plus 8.6-50 mg Tablet] polyethylene glycoL 3350 [Miralax] 17 gm PO BID 07/29/23 12/08/23 History sitaGLIPtin [Januvia] 50 mg PO DAILY 07/29/23 12/08/23 History Acetaminophen Tab [Tylenol] 500 mg PO Q6HR PRN tab 08/09/23 12/08/23 Rx Metoprolol Tartrate [Lopressor] 25 mg PO TID #0 08/09/23 12/08/23 Rx haloperidoL [Haldol] 2.5 mg PO HS #3 tab 08/09/23 12/08/23 Rx Diclofenac Sodium Gel [Voltaren 1% 2 gm TOPICAL Q6H 08/15/23 12/08/23 History Gel] INSULIN LISPRO (HumaLOG) [humaLOG] See Protocol SQ AC-TID 10/08/23 12/08/23 History Insulin Glargine,Hum.rec.anlog 10 units SQ DAILY 10/08/23 12/08/23 History [Lantus Solostar Pen] Gabapentin [Neurontin] 100 mg PO BID #6 cap 10/11/23 12/08/23 Rx droNABinol [Marinol] 2.5 mg PO BID #6 cap 11/11/23 12/08/23 Rx HYDROcodone/APAP 5-325MG [Lissie 1 tab PO Q8H PRN 12/08/23 12/08/23 History 5-325] Linezolid [Zyvox] 600 mg PO Q12H #14 tab 12/16/23 Rx Allergies Allergy/AdvReac Type Severity Reaction Status Date / Time metformin Allergy Unknown Verified 12/08/23 11:22 Sulfa (Sulfonamide Allergy Unknown Verified 12/08/23 11:22 Antibiotics) Physical Exam Vitals: Vital Signs Temp Pulse Pulse Resp BP BP Pulse Ox 12/08/23 07:08 98.2 F 91 18 124/62 96 12/08/23 04:00 90 18 130/64 95 12/08/23 00:00 87 16 138/76 97 12/07/23 22:00 90 20 141/71 95 12/07/23 21:30 90 20 141/71 96 12/07/23 20:46 98.4 F 85 18 139/81 97 Intake and Output 12/07/23 12/08/23 12/08/23 21:59 06:59 14:59 Output Total Balance Output: Urine Other: Voiding Method Indwelling Catheter Weight GENERAL DESCRIPTION: Elderly female lying in bed, no distress. No tachypnea or accessory muscle of respiration use. HEENT: Shows Pallor , no scleral icterus. Oral mucous membrane is dry. No pharyngeal erythema or thrush NECK: Trachea central, no thyromegaly. LUNGS: Unlabored breathing. Clear to auscultation anteriorly. HEART: S1, S2, regular rate and rhythm. No loud murmur ABDOMEN: Soft, no tenderness , EXTREMITIES: No edema of feet. SKIN: No rash, no masses palpable. Sacral wound is currently covered with wound VAC NEUROLOGICAL: The patient is sleepy but arousable mood and affect normal. Results CBC & Chem 7: 12/17/23 08:44 12/17/23 08:44 Labs: Abnormal Lab Results - Last 24 Hours (Table) 12/07/23 12/07/23 12/08/23 Range/Units 21:58 21:58 03:15 WBC 12.3 H (3.8-10.6) k/uL RBC 3.26 L (3.80-5.40) m/uL Hgb 9.7 L D (11.4-16.0) gm/dL Hct 30.2 L (34.0-46.0) % Sodium 134 L (137-145) mmol/L Chloride 108 H (98-107) mmol/L Carbon Dioxide 20 L (22-30) mmol/L BUN 20 H (7-17) mg/dL Glucose 154 H (74-99) mg/dL POC Glucose (mg/dL) (70-110) mg/dL AST 46 H (14-36) U/L Alkaline Phosphatase 142 H (38-126) U/L Total Protein 9.0 H (6.3-8.2) g/dL Urine Blood Trace H (Negative) Urine Nitrite Positive H (Negative) Ur Leukocyte Esterase Small H (Negative) Urine WBC 16 H (0-5) /hpf Amorphous Sediment Rare H (None) /hpf Urine Bacteria Occasional H (None) /hpf Hyaline Casts 3 H (0-2) /lpf Urine Yeast (Budding) Occasional H (None) /hpf 12/08/23 12/08/23 Range/Units 06:11 11:12 WBC (3.8-10.6) k/uL RBC (3.80-5.40) m/uL Hgb (11.4-16.0) gm/dL Hct (34.0-46.0) % Sodium (137-145) mmol/L Chloride (98-107) mmol/L Carbon Dioxide (22-30) mmol/L BUN (7-17) mg/dL Glucose (74-99) mg/dL POC Glucose (mg/dL) 138 H 121 H (70-110) mg/dL AST (14-36) U/L Alkaline Phosphatase (38-126) U/L Total Protein (6.3-8.2) g/dL Urine Blood (Negative) Urine Nitrite (Negative) Ur Leukocyte Esterase (Negative) Urine WBC (0-5) /hpf Amorphous Sediment (None) /hpf Urine Bacteria (None) /hpf Hyaline Casts (0-2) /lpf Urine Yeast (Budding) (None) /hpf Assessment and Plan (1) Stage IV pressure ulcer of sacral region Current Visit: No Status: Acute Code(s): L89.154 - PRESSURE ULCER OF SACRAL REGION, STAGE 4 SNOMED Code(s): 41675938957352 (2) Urinary tract infection Current Visit: No Status: Acute Code(s): N39.0 - URINARY TRACT INFECTION, SITE NOT SPECIFIED SNOMED Code(s): 98764076 Plan: 1-patient with a stage IV sacral pressure ulcer with the patient has for couple of months now and did have a previous episode of osteomyelitis for the patient received adequate antibiotic therapy patient was seen last week in the office and her sacral wound was healing well currently did have wound VAC we will leave on the wound tomorrow at the time of wound VAC change suspicious low for infected sacral wound 2-patient did have a weakness which could be likely multifactorial did have a positive UA and a possible component of UTI pneumonia less likely 3-we will check inflammation markers 4-empirically start the patient on cefepime while awaiting further workup to be completed Son at the bedside questions answered We will follow on clinical condition and cultures to further adjust medication if needed Thank you for this consultation we will follow the patient along with you Dictation was produced using [employer] dictation software. please excuse any grammatical, word or spelling errors. Time with Patient: Greater than 30
[2023-12-08] MEDS: polyethylene glycoL 3350 17 GM POWD.PACK PO SCH (21:00)
[2023-12-08] MEDS: GABAPENTIN 100 MG CAP PO SCH (21:01)
[2023-12-08] MEDS: SENNOSIDES-DOCUSATE SODIUM 1 EACH TAB PO SCH (21:01)
[2023-12-08] MEDS: haloperidoL 5 MG TAB PO SCH (21:03)
[2023-12-08] MEDS: BENZTROPINE MESYLATE 1 MG TAB PO SCH (21:03)
[2023-12-08] MEDS: droNABinol 2.5 MG CAP PO SCH (21:04)
[2023-12-08] MEDS: ACETAMINOPHEN TAB 500 MG TAB PO PRN (21:10)
[2023-12-08] MEDS: CEFEPIME 2 GM in SODIUM CHLORIDE 0.9% 100 ML IVPB SCH (22:36)
[2023-12-09 06:28] LABS: Glucose,Whole Blood 119 mg/dL (70-110)
[2023-12-09] MEDS: INSULIN DETEMIR (LEVEMIR) 100 UNIT/ML SYR SQ SCH (08:44)
[2023-12-09] MEDS: FERROUS SULFATE 325 MG TAB PO SCH (08:54)
[2023-12-09] MEDS: ASCORBIC ACID 500 MG TAB PO SCH (08:55)
[2023-12-09] MEDS: CHOLECALCIFEROL 25 MCG (1000 IU) TABLET PO SCH (08:55)
[2023-12-09] MEDS: PANTOPRAZOLE 40 MG TABLET PO SCH (08:55)
[2023-12-09] MEDS: MULTIVITAMINS, THERA 1 EACH TAB PO SCH (08:55)
[2023-12-09] MEDS: FAMOTIDINE 20 MG TAB PO SCH (08:55)
--- NOTE | 2023-12-09 09:10 | P.CNOR ---
History of Present Illness - [facility] Consult date: 12/09/23 Requesting physician: Janet Sultana Consult reason: other (Abnormal CT cervical spine) History of present illness: History of Presenting Illness Patient is a pleasantly confused 78-year-old female who presented to the ER with complaint of bilateral swollen feet and possible blood clotting. Patient was admitted to Dr. Sultana for further evaluation. Patient does have dementia and is a poor historian. It is documented that the history was obtained by the patient's son. He states that patient normally receives physical therapy and occupational therapy with wound care at home. It was stated that over the past week patient seemed to become more fatigued and had difficulties completing her therapies. Patient's son also reported that she has had some falls, unsure of any head injury or loss of consciousness. 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 Her son reports that she is having increased swelling to her bilateral lower extremities into her feet. Patient states that she does have pain into her bilateral lower extremities, associated without numbness or tingling. During ER evaluation and work up it was found that patient does have a UTI. Our services were consulted due to an abnormal computed tomography scan of the cervical spine. CT of the cervical spine taken on 12/07/23 demonstrates generalized osteopenia with degenerative changes of DISH. Negative for any acute changes or fractures. 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 This causes at least moderate spinal canal stenosis, and mass effect on the cervical medullary junction that cannot be excluded. If clinically warranted, the patient has neurological symptoms and MRI could be obtained for further evaluation. Review of Systems Pertinent positives and negatives as discussed in HPI, a complete review of systems was performed and all other systems are negative. Physical Examination Inspection: Skin is warm and dry negative for any open fractures. Stage III pressure wound present on coccyx, wound VAC is intact and patent. Exam is limited due to patient cognition and inability to follow all commands or answer questions. Special tests: Negative Homans bilaterally. Negative Maicol bilaterally. Negative clonus bilaterally. Neurovascular: Radial pulse intact, 2+ bilaterally. Cap refill under 3 seconds in digits upper extremities. Assessment and Plan Cervical spondylosis DISH Generalized weakness Falls Multiple comorbidities At this time we do not recommend any emergent/urgent orthopedic surgical intervention. Continue with conservative measures. 2. Appreciate medical management 3. Pain management - Tylenol, [place] 4. GI prophylaxis - Eliquis 5. DVT prophylaxis - Protonix, senna, miralax 6. PT/OT - weightbearing as tolerated with a walker as needed. 7. Appreciate consult, we will continue to follow patient at this time. I reviewed and discussed this case with my attending Dr. Puente, whom has reviewed this chart and films and is in agreement with assessment and plan of care as outlined above. I have personally seen and examined the patient, performed the documentation and the assessment and plan as written. Number of minutes spent on the visit: 20m. Past Medical History Past Medical History: CVA/TIA, Dementia, Diabetes Mellitus, Hypertension, Osteoarthritis (OA) Additional Past Medical History / Comment(s): Pt states she is on an antibiotic for ear infection/throat infection at this time, TIA which affected speech, pt denies HTN but it is documented in past medical hx, diet controlled diabetes History of Any Multi-Drug Resistant Organisms: None Reported Past Surgical History: Orthopedic Surgery Additional Past Surgical History / Comment(s): I&D tooth abscess, left trigger finger surgery Past Anesthesia/Blood Transfusion Reactions: No Reported Reaction Past Psychological History: Anxiety, Bipolar, Depression Additional Psychological History / Comment(s): Pt states she sees a Dr. Ramírez for her mental health care. She resides with her granddaughter and [facility] She does not drive. She gets to appts with family or friends or cab. uses no assistive devices. Smoking Status: Never smoker Past Alcohol Use History: None Reported Past Drug Use History: None Reported - Past Family History Father Family Medical History: No Reported History Mother Family Medical History: No Reported History Medications and Allergies Home Medications Medication Instructions Recorded Confirmed Type Apixaban [Eliquis] 5 mg PO BID 07/29/23 12/08/23 History Ascorbic Acid [Vitamin C] 250 mg PO DAILY 07/29/23 12/08/23 History Benztropine Mesylate [Cogentin] 2 mg PO HS 07/29/23 12/08/23 History Cholecalciferol [Vitamin D3 (25 25 mcg PO DAILY 07/29/23 12/08/23 History Mcg = 1000 Iu)] Famotidine [Pepcid] 20 mg PO DAILY 07/29/23 12/08/23 History Ferrous Sulfate [Iron] 325 mg PO DAILY 07/29/23 12/08/23 History Lactulose 20 gm PO DAILY PRN 07/29/23 12/08/23 History Multivitamins, Thera [Multivitamin 1 tab PO DAILY 07/29/23 12/08/23 History (formulary)] Sennosides/Docusate Sodium [Senna 1 tab PO BID 07/29/23 12/08/23 History Plus 8.6-50 mg Tablet] polyethylene glycoL 3350 [Miralax] 17 gm PO BID 07/29/23 12/08/23 History sitaGLIPtin [Januvia] 50 mg PO DAILY 07/29/23 12/08/23 History Acetaminophen Tab [Tylenol] 500 mg PO Q6HR PRN tab 08/09/23 12/08/23 Rx Metoprolol Tartrate [Lopressor] 25 mg PO TID #0 08/09/23 12/08/23 Rx haloperidoL [Haldol] 2.5 mg PO HS #3 tab 08/09/23 12/08/23 Rx Diclofenac Sodium Gel [Voltaren 1% 2 gm TOPICAL Q6H 08/15/23 12/08/23 History Gel] INSULIN LISPRO (HumaLOG) [humaLOG] See Protocol SQ AC-TID 10/08/23 12/08/23 History Insulin Glargine,Hum.rec.anlog 10 units SQ DAILY 10/08/23 12/08/23 History [Lantus Solostar Pen] Gabapentin [Neurontin] 100 mg PO BID #6 cap 10/11/23 12/08/23 Rx droNABinol [Marinol] 2.5 mg PO BID #6 cap 11/11/23 12/08/23 Rx HYDROcodone/APAP 5-325MG [[place] 1 tab PO Q8H PRN 12/08/23 12/08/23 History 5-325] Allergies Allergy/AdvReac Type Severity Reaction Status Date / Time metformin Allergy Unknown Verified 12/08/23 11:22 Sulfa (Sulfonamide Allergy Unknown Verified 12/08/23 11:22 Antibiotics) Results - Labs Labs: Abnormal Lab Results - Last 24 Hours (Table) 12/08/23 12/08/23 12/09/23 Range/Units 11:12 16:23 06:26 POC Glucose (mg/dL) 121 H 138 H 119 H (70-110) mg/dL Microbiology - Last 24 Hours (Table) 12/08/23 03:15 Gram Stain - Preliminary Buttock H & H 12/07/23 Range/Units 21:58 Hgb 9.7 L D (11.4-16.0) gm/dL Hct 30.2 L (34.0-46.0) % Coagulation 12/07/23 Range/Units 21:58 INR 1.1 (<1.2) Result Diagrams: 12/07/23 21:58 12/07/23 21:58
[2023-12-09 11:00] LABS: Basophils # (A) 0.02 X 10*3/uL (0.00-0.10); Basophils % (A) 0.2 %; Eosinophils # (A) 0.27 X 10*3/uL (0.04-0.35); Eosinophils % (A) 3.2 %; HCT 27.9 % (37.2-46.3); HGB 8.7 g/dL (12.0-15.0); Lymphocytes # (A) 3.54 X 10*3/uL (0.90-5.00); Lymphocytes % (A) 41.9 %; MCH 29.3 pg (27.0-32.0); MCHC 31.2 g/dL (32.0-37.0); MCV 93.9 FL (80.0-97.0); Mean Platelet Volume 9.4 FL (9.5-12.2); Monocytes # (A) 0.48 X 10*3/uL (0.20-1.00); Monocytes % (A) 5.7 %; NRBC Per 100 WBC 0 X 10*3/uL (0.00-0.01); Neutrophils % (A) 48.5 %; Platelet Count 288 X 10*3/uL (140-440); RBC 2.97 X 10*6/uL (4.10-5.20); RDW 14.6 % (11.5-14.5); WBC 8.45 X 10*3/uL (4.50-10.00)
[2023-12-09 11:11] LABS: Glucose,Whole Blood 135 mg/dL (70-110)
[2023-12-09 11:15] LABS: Blood Urea Nitrogen 7.5 mg/dL (9.0-27.0); Glucose 102 mg/dL (70-110)
[2023-12-09 11:16] LABS: ALT 18 U/L (8-44); AST 26 U/L (13-35); Albumin 2.8 g/dL (3.8-4.9); Albumin/Globulin Ratio 0.56 Ratio (1.60-3.17); Alkaline Phosphatase 106 U/L (41-126); Calcium 9.1 mg/dL (8.7-10.3); Carbon Dioxide 25.1 mmol/L (21.6-31.8); Chloride 110 mmol/L (96-109); Sodium 142 mmol/L (135-145); Total Bilirubin 0.4 mg/dL (0.3-1.2); Total Protein 7.8 g/dL (6.2-8.2)
[2023-12-09 15:15] VITALS: BMI 28.3
[2023-12-09 17:00] LABS: Glucose,Whole Blood 287 mg/dL (70-110)
--- NOTE | 2023-12-09 17:32 | P.PN ---
Subjective Progress Note Date: 12/09/23 this is a 78-year-old female patient who presented to the ER with concerns of increased weakness. Patient is a poor historian and there is currently no family at bedside most history is obtained from medical record patient has past medical history of dementia, CVA, diabetes mellitus, hypertension, oste oarthritis, wounds in which she follows with wound care and PT OT. Patient has decubitus ulcer. Anxiety, bipolar and depression. According to records patient has had increasing frequent falls and completing PT OT at home. Head and cervical CT completed showing no evidence of acute cervical spine fracture or traumatic malalignment. Generalized osteopenia. 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 Bilateral lower extremity venous Doppler completed showing negative for DVT. X- ray of sacrum and coccyx completed showing soft tissue gas posterior to the Sleep around related to decubitus ulcer no clear radiographic evidence of acute bony abnormality. Chest x-ray completed showing heart size is prominent increased lung volumes by basilar opacities left greater than right could be due to atelectasis or developing infiltrate. Current vital signs temp 98.2, heart rate 91, respiratory 18, blood pressure 124/62 with pulse ox 96% on room air. Influenza RSV COVID-19 negative UA showing small amount of leukocyte Estrace wi ll order urine culture. White blood cell 12.3 hemoglobin 9.7. At this time patient will be admitted infectious disease service is consulted wound care service is consulted. Urine and wound cultures ordered On 12/09/2023 patient was seen and examined on the medical floor she is alert and oriented 3 in no apparent distress she is still complaining of lower back pain and pain in the sacral area otherwise she denies any complaints there is no fever or chills no headache or dizziness no chest pain no shortness of breath no cough no nausea or vomiting no abdominal pain no diarrhea and no urinary symptoms Objective - Vital Signs Vital signs: Vital Signs Temp 98.6 F 12/09/23 07:00 Pulse 74 12/09/23 07:00 Resp 16 12/09/23 07:00 BP 146/73 12/09/23 07:00 Pulse Ox 96 12/09/23 07:00 FiO2 Intake & Output 12/08/23 12/09/23 12/09/23 18:59 06:59 18:59 Output Total 1200 2300 Balance -1200 -2300 Output: Urine 1200 2300 Other: Voiding Method Indwelling Catheter Indwelling Catheter - Exam Head normocephalic Neck supple Lungs clear to auscultation bilaterally no wheezing or crackles Heart regular rate and rhythm S1-S2, no rub or gallop Abdomen is soft nontender nondistended positive bowel sounds no hepatosplenomegaly Extremities no edema Neuro alert and orientated to 1. Known dementia Decubitus ulcer noted coccyx - Labs CBC & Chem 7: 12/09/23 06:23 12/09/23 06:23 Labs: Abnormal Lab Results - Last 24 Hours (Table) 12/08/23 12/08/23 12/09/23 Range/Units 11:12 16:23 06:26 POC Glucose (mg/dL) 121 H 138 H 119 H (70-110) mg/dL Microbiology - Last 24 Hours (Table) 12/08/23 03:15 Gram Stain - Preliminary Buttock Wound Culture - Preliminary Presumptive MRSA Assessment and Plan Assessment: 1. Increased weakness and falls 2. Stage III decubitus ulcer. Patient follows with wound care 3. History of diabetes mellitus type 2 4. History of dementia 5. History of anemia 6. History of lumbar discitis 7. History of essential hypertension DVT prophylaxis eliquis. GI prophylaxis Protonix Infectious disease Wound Care service is consulted Wound and urine cultures ordered Awaiting pharmacy verification of home medication Repeat labs ordered in a.m. PT OT and social work services consulted
[2023-12-09 21:06] LABS: Glucose,Whole Blood 146 mg/dL (70-110)
--- NOTE | 2023-12-09 23:10 | P.PN ---
Subjective Progress Note Date: 12/09/23 Principal diagnosis: Reason for follow-up is possible UTI and sacral pressure ulcer Patient is a 78-year-old -[place] female with a past medical history significant for diabetes mellitus hypertension osteoarthritis CVA TIA patient also have a history of infected sacral pressure ulcer with underlying osteomyelitis for the patient has completed extensive course of IV and by therapy currently local wound care with a wound VAC patient has been brought into the hospital for evaluation of fatigue and weakness did have a positive UA concerning for possible UTI. On today's visit that is 12/09/2023,the patient seem to be slightly more awake and alert today than yesterday remains to be afebrile, patient is on room air not requiring supplemental oxygen and denies any shortness of breath no chest pain or cough.Patient denies having any nausea or vomiting, no abdominal pain and no diarrhea has been reported by the nursing staff. Patient white count is 8.45, creatinine 0.5 liver isms are normal CRP is 2.90 procalcitonin 0.06 Objective - Vital Signs Vital signs: Vital Signs Temp 98.6 F 12/09/23 07:00 Pulse 74 12/09/23 07:00 Resp 16 12/09/23 07:00 BP 146/73 12/09/23 07:00 Pulse Ox 96 12/09/23 07:00 FiO2 Intake & Output 12/08/23 12/09/23 12/09/23 18:59 06:59 18:59 Output Total 1200 2300 Balance -1200 -2300 Output: Urine 1200 2300 Other: Voiding Method Indwelling Catheter Indwelling Catheter - Exam GENERAL DESCRIPTION: An elderly female lying in bed in no distress RESPIRATORY SYSTEM: Unlabored breathing , decreased breath sounds at bases HEART: S1 S2 regular rate and rhythm , ABDOMEN: Soft , no tenderness EXTREMITIES: No edema feet - Labs CBC & Chem 7: 12/09/23 06:23 12/09/23 06:23 Labs: Abnormal Lab Results - Last 24 Hours (Table) 12/08/23 12/09/23 12/09/23 Range/Units 16:23 06:23 06:23 RBC 2.97 L (4.10-5.20) X 10*6/uL Hgb 8.7 L (12.0-15.0) g/dL Hct 27.9 L (37.2-46.3) % MCHC 31.2 L (32.0-37.0) g/dL RDW 14.6 H (11.5-14.5) % MPV 9.4 L (9.5-12.2) FL Chloride (96-109) mmol/L BUN (9.0-27.0) mg/dL Creatinine (0.6-1.5) mg/dL POC Glucose (mg/dL) 138 H (70-110) mg/dL Hemoglobin A1c 7.3 H (<=6.0) % C-Reactive Protein (0.00-0.80) mg/dL Albumin (3.8-4.9) g/dL Globulin (1.6-3.3) g/dL Albumin/Globulin Ratio (1.60-3.17) Ratio 12/09/23 12/09/23 12/09/23 Range/Units 06:23 06:26 11:10 RBC (4.10-5.20) X 10*6/uL Hgb (12.0-15.0) g/dL Hct (37.2-46.3) % MCHC (32.0-37.0) g/dL RDW (11.5-14.5) % MPV (9.5-12.2) FL Chloride 110 H (96-109) mmol/L BUN 7.5 L (9.0-27.0) mg/dL Creatinine 0.5 L (0.6-1.5) mg/dL POC Glucose (mg/dL) 119 H 135 H (70-110) mg/dL Hemoglobin A1c (<=6.0) % C-Reactive Protein 2.90 H (0.00-0.80) mg/dL Albumin 2.8 L (3.8-4.9) g/dL Globulin 5.0 H (1.6-3.3) g/dL Albumin/Globulin Ratio 0.56 L (1.60-3.17) Ratio Microbiology - Last 24 Hours (Table) 12/08/23 03:15 Gram Stain - Preliminary Buttock Wound Culture - Preliminary Presumptive MRSA Assessment and Plan (1) Stage IV pressure ulcer of sacral region Current Visit: No Status: Acute Code(s): L89.154 - PRESSURE ULCER OF SACRAL REGION, STAGE 4 SNOMED Code(s): 78584988130166 (2) Urinary tract infection Current Visit: No Status: Acute Code(s): N39.0 - URINARY TRACT INFECTION, SITE NOT SPECIFIED SNOMED Code(s): 42900287 Plan: 1-patient with a stage IV sacral pressure ulcer with the patient has for couple of months now and did have a previous episode of osteomyelitis for the patient received adequate antibiotic therapy patient was seen last week in the office and her sacral wound was healing well currently did have wound VAC per the nursing staff the wound VAC was changed yesterday hence we will have to reevaluate the wound tomorrow at the time of next VAC change 2-patient did have a weakness which could be likely multifactorial did have a positive UA and a possible component of UTI pneumonia less likely 3-did have mild elevated inflammation markers 4-patient to continue with cefepime while awaiting further workup to be completed Dictation was produced using [employer] dictation software. please excuse any grammatical, word or spelling errors. Time with Patient: Less than 30
[2023-12-10] MEDS: HYDROcodone/APAP 5-325MG 1 EACH TAB PO PRN (05:01)
[2023-12-10 05:39] LABS: Glucose,Whole Blood 130 mg/dL (70-110)
--- NOTE | 2023-12-10 06:46 | P.PN ---
Subjective Progress Note Date: 12/10/23 Principal diagnosis: Abnormal CT cervical spine Patient seen and examined this morning. Patient is resting comfortably in bed. No complaints overnight. Encourage patient to work with physical therapy as tolerated. Patient is cleared from orthopedic standpoint for discharge when medically stable. Objective - Vital Signs Vital signs: Vital Signs Temp 97.4 F L 12/10/23 01:23 Pulse 81 12/10/23 01:23 Resp 17 12/10/23 01:23 BP 129/64 12/10/23 01:23 Pulse Ox 97 12/10/23 01:23 FiO2 Intake & Output 12/09/23 12/09/23 12/10/23 06:59 18:59 06:59 Output Total 2300 2500 350 Balance -2300 -2500 -350 Weight 74.843 kg Output: Urine 2300 2500 350 Other: Voiding Method Indwelling Catheter # Bowel Movements 1 - Exam Inspection: Skin is warm and dry negative for any open fractures. Stage III pressure wound present on coccyx, wound VAC is intact and patent. Exam is limited due to patient cognition and inability to follow all commands or answer questions. Special tests: Negative Homans bilaterally. Negative Maicol bilaterally. Negative clonus bilaterally. Neurovascular: Radial pulse intact, 2+ bilaterally. Cap refill under 3 seconds in digits upper extremities. - Labs CBC & Chem 7: 12/09/23 06:23 12/09/23 06:23 Labs: Abnormal Lab Results - Last 24 Hours (Table) 12/09/23 12/09/23 12/09/23 Range/Units 06:23 06:23 06:23 RBC 2.97 L (4.10-5.20) X 10*6/uL Hgb 8.7 L (12.0-15.0) g/dL Hct 27.9 L (37.2-46.3) % MCHC 31.2 L (32.0-37.0) g/dL RDW 14.6 H (11.5-14.5) % MPV 9.4 L (9.5-12.2) FL Chloride 110 H (96-109) mmol/L BUN 7.5 L (9.0-27.0) mg/dL Creatinine 0.5 L (0.6-1.5) mg/dL POC Glucose (mg/dL) (70-110) mg/dL Hemoglobin A1c 7.3 H (<=6.0) % C-Reactive Protein 2.90 H (0.00-0.80) mg/dL Albumin 2.8 L (3.8-4.9) g/dL Globulin 5.0 H (1.6-3.3) g/dL Albumin/Globulin Ratio 0.56 L (1.60-3.17) Ratio 12/09/23 12/09/23 12/09/23 Range/Units 11:10 16:48 21:03 RBC (4.10-5.20) X 10*6/uL Hgb (12.0-15.0) g/dL Hct (37.2-46.3) % MCHC (32.0-37.0) g/dL RDW (11.5-14.5) % MPV (9.5-12.2) FL Chloride (96-109) mmol/L BUN (9.0-27.0) mg/dL Creatinine (0.6-1.5) mg/dL POC Glucose (mg/dL) 135 H 287 H 146 H (70-110) mg/dL Hemoglobin A1c (<=6.0) % C-Reactive Protein (0.00-0.80) mg/dL Albumin (3.8-4.9) g/dL Globulin (1.6-3.3) g/dL Albumin/Globulin Ratio (1.60-3.17) Ratio 12/10/23 Range/Units 05:34 RBC (4.10-5.20) X 10*6/uL Hgb (12.0-15.0) g/dL Hct (37.2-46.3) % MCHC (32.0-37.0) g/dL RDW (11.5-14.5) % MPV (9.5-12.2) FL Chloride (96-109) mmol/L BUN (9.0-27.0) mg/dL Creatinine (0.6-1.5) mg/dL POC Glucose (mg/dL) 130 H (70-110) mg/dL Hemoglobin A1c (<=6.0) % C-Reactive Protein (0.00-0.80) mg/dL Albumin (3.8-4.9) g/dL Globulin (1.6-3.3) g/dL Albumin/Globulin Ratio (1.60-3.17) Ratio Microbiology - Last 24 Hours (Table) 12/08/23 03:15 Gram Stain - Preliminary Buttock Wound Culture - Preliminary Presumptive MRSA Assessment and Plan Assessment: Cervical spondylosis DISH Generalized weakness Falls Multiple comorbidities Plan: 1. Continue with conservative measures. 2. Appreciate medical management 3. Pain management - Tylenol, [place] 4. GI prophylaxis - Eliquis 5. DVT prophylaxis - Protonix, senna, miralax 6. PT/OT - weightbearing as tolerated with a walker as needed. 7. Appreciate consult, orthopedics will be signing off at this time, no further recommendations. Patient may follow up in office as needed. Please feel free to reach out with any questions or concerns. I reviewed and discussed this case with my attending Dr. Puente, whom has reviewed this chart and films and is in agreement with assessment and plan of care as outlined above. I have personally seen and examined the patient, performed the documentation and the assessment and plan as written. Number of minutes spent on the visit: 20m.
[2023-12-10 08:51] LABS: Basophils # (A) 0.03 X 10*3/uL (0.00-0.10); Basophils % (A) 0.3 %; Eosinophils # (A) 0.29 X 10*3/uL (0.04-0.35); Eosinophils % (A) 2.9 %; HCT 27.9 % (37.2-46.3); HGB 8.9 g/dL (12.0-15.0); Lymphocytes # (A) 4.48 X 10*3/uL (0.90-5.00); Lymphocytes % (A) 45.2 %; MCHC 31.9 g/dL (32.0-37.0); MCV 93.9 FL (80.0-97.0); Mean Platelet Volume 9.6 FL (9.5-12.2); Monocytes # (A) 0.53 X 10*3/uL (0.20-1.00); Monocytes % (A) 5.3 %; NRBC Per 100 WBC 0 X 10*3/uL (0.00-0.01); Neutrophils # (A) 4.51 X 10*3/uL (1.80-7.70); Neutrophils % (A) 45.6 %; Platelet Count 301 X 10*3/uL (140-440); RBC 2.97 X 10*6/uL (4.10-5.20); RDW 14.6 % (11.5-14.5); WBC 9.91 X 10*3/uL (4.50-10.00)
--- NOTE | 2023-12-10 09:04 | P.PN ---
Subjective Progress Note Date: 12/10/23 this is a 78-year-old female patient who presented to the ER with concerns of increased weakness. Patient is a poor historian and there is currently no family at bedside most history is obtained from medical record patient has past medical history of dementia, CVA, diabetes mellitus, hypertension, osteo arthritis, wounds in which she follows with wound care and PT OT. Patient has decubitus ulcer. Anxiety, bipolar and depression. According to records patient has had increasing frequent falls and completing PT OT at home. Head and cervical CT completed showing no evidence of acute cervical spine fracture or traumatic malalignment. Generalized osteopenia. 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 Bilateral lower extremity venous Doppler completed showing negative for DVT. X- ray of sacrum and coccyx completed showing soft tissue gas posterior to the Sleep around related to decubitus ulcer no clear radiographic evidence of acute bony abnormality. Chest x-ray completed showing heart size is prominent increased lung volumes by basilar opacities left greater than right could be due to atelectasis or developing infiltrate. Current vital signs temp 98.2, heart rate 91, respiratory 18, blood pressure 124/62 with pulse ox 96% on room air. Influenza RSV COVID-19 negative UA showing small amount of leukocyte Estrace camryn l order urine culture. White blood cell 12.3 hemoglobin 9.7. At this time patient will be admitted infectious disease service is consulted wound care service is consulted. Urine and wound cultures ordered On 12/09/2023 patient was seen and examined on the medical floor she is alert and oriented 3 in no apparent distress she is still complaining of lower back pain and pain in the sacral area otherwise she denies any complaints there is no fever or chills no headache or dizziness no chest pain no shortness of breath no cough no nausea or vomiting no abdominal pain no diarrhea and no urinary symptoms On 12/10/2023 patients alert and oriented 3. Current vital signs temp 97.8, heart rate 78, respiratory rate 18, blood pressure 148/51 with pulse ox of 99% on room air. Patient remains on IV Maxipime. Infectious disease and orthopedic services following. Patient complains of generalized pain. Patient denies chest pain or shortness breath. Patient denies nausea vomiting or diarrhea. Patient denies any urinary burning or frequency Objective - Vital Signs Vital signs: Vital Signs Temp 97.8 F 12/10/23 07:27 Pulse 78 12/10/23 07:27 Resp 18 12/10/23 07:27 BP 148/51 12/10/23 07:27 Pulse Ox 99 12/10/23 07:27 FiO2 Intake & Output 12/09/23 12/10/23 12/10/23 18:59 06:59 18:59 Output Total 2500 350 Balance -2500 -350 Weight 74.843 kg Output: Urine 2500 350 Other: # Bowel Movements 1 - Exam Head normocephalic Neck supple Lungs clear to auscultation bilaterally no wheezing or crackles Heart regular rate and rhythm S1-S2, no rub or gallop Abdomen is soft nontender nondistended positive bowel sounds no hepatosp lenomegaly Extremities no edema Neuro alert and orientated to 1. Known dementia Decubitus ulcer noted coccyx - Labs CBC & Chem 7: 12/10/23 06:01 12/09/23 06:23 Labs: Abnormal Lab Results - Last 24 Hours (Table) 12/09/23 12/09/23 12/09/23 Range/Units 06:23 06:23 06:23 RBC 2.97 L (4.10-5.20) X 10*6/uL Hgb 8.7 L (12.0-15.0) g/dL Hct 27.9 L (37.2-46.3) % MCHC 31.2 L (32.0-37.0) g/dL RDW 14.6 H (11.5-14.5) % MPV 9.4 L (9.5-12.2) FL Immature Gran # (0.00-0.04) X 10*3/uL Chloride 110 H (96-109) mmol/L BUN 7.5 L (9.0-27.0) mg/dL Creatinine 0.5 L (0.6-1.5) mg/dL POC Glucose (mg/dL) (70-110) mg/dL Hemoglobin A1c 7.3 H (<=6.0) % C-Reactive Protein 2.90 H (0.00-0.80) mg/dL Albumin 2.8 L (3.8-4.9) g/dL Globulin 5.0 H (1.6-3.3) g/dL Albumin/Globulin Ratio 0.56 L (1.60-3.17) Ratio 12/09/23 12/09/23 12/09/23 Range/Units 11:10 16:48 21:03 RBC (4.10-5.20) X 10*6/uL Hgb (12.0-15.0) g/dL Hct (37.2-46.3) % MCHC (32.0-37.0) g/dL RDW (11.5-14.5) % MPV (9.5-12.2) FL Immature Gran # (0.00-0.04) X 10*3/uL Chloride (96-109) mmol/L BUN (9.0-27.0) mg/dL Creatinine (0.6-1.5) mg/dL POC Glucose (mg/dL) 135 H 287 H 146 H (70-110) mg/dL Hemoglobin A1c (<=6.0) % C-Reactive Protein (0.00-0.80) mg/dL Albumin (3.8-4.9) g/dL Globulin (1.6-3.3) g/dL Albumin/Globulin Ratio (1.60-3.17) Ratio 12/10/23 12/10/23 Range/Units 05:34 06:01 RBC 2.97 L (4.10-5.20) X 10*6/uL Hgb 8.9 L (12.0-15.0) g/dL Hct 27.9 L (37.2-46.3) % MCHC 31.9 L (32.0-37.0) g/dL RDW 14.6 H (11.5-14.5) % MPV (9.5-12.2) FL Immature Gran # 0.07 H (0.00-0.04) X 10*3/uL Chloride (96-109) mmol/L BUN (9.0-27.0) mg/dL Creatinine (0.6-1.5) mg/dL POC Glucose (mg/dL) 130 H (70-110) mg/dL Hemoglobin A1c (<=6.0) % C-Reactive Protein (0.00-0.80) mg/dL Albumin (3.8-4.9) g/dL Globulin (1.6-3.3) g/dL Albumin/Globulin Ratio (1.60-3.17) Ratio Microbiology - Last 24 Hours (Table) 12/08/23 03:15 Gram Stain - Final Buttock Wound Culture - Final Methicillin resist S. aureus Assessment and Plan Assessment: 1. Increased weakness and falls 2. Stage III decubitus ulcer. Patient follows with wound care 3. History of diabetes mellitus type 2 4. History of dementia 5. History of anemia 6. History of lumbar discitis 7. History of essential hypertension DVT prophylaxis eliquis. GI prophylaxis Protonix Infectious disease Wound Care service is consulted Wound and urine cultures ordered Awaiting pharmacy verification of home medication Repeat labs ordered in a.m. PT OT and social work services consulted
[2023-12-10 11:31] LABS: ALT 16 U/L (8-44); AST 22 U/L (13-35); Albumin 2.8 g/dL (3.8-4.9); Albumin/Globulin Ratio 0.56 Ratio (1.60-3.17); Alkaline Phosphatase 107 U/L (41-126); BUN/Creat Ratio 12.67 Ratio (12.00-20.00); Blood Urea Nitrogen 7.6 mg/dL (9.0-27.0); Carbon Dioxide 25.1 mmol/L (21.6-31.8); Chloride 106 mmol/L (96-109); Glucose 108 mg/dL (70-110); Sodium 138 mmol/L (135-145); Total Bilirubin 0.5 mg/dL (0.3-1.2); Total Protein 7.8 g/dL (6.2-8.2)
[2023-12-10 11:37] LABS: Glucose,Whole Blood 215 mg/dL (70-110)
--- NOTE | 2023-12-10 13:32 | CDI ---
Documentation Clarification Form Date: 12/10/2023 12:52:52 PM From: Tika Ramos Phone: [phone] Admit Date: 12/08/2023 03:59:00 AM Patient Name: Adeline Ramírez Visit Number: [id number] Discharge Date: ATTENTION: The Clinical Documentation Specialists (CDI) and [facility] Coding Staff appreciate your assistance in clarifying documentation. Please respond to the clarification below the line at the bottom and electronically sign. The CDI & [facility] Coding staff will review the response and follow-up if needed. Please note: Queries are made part of the Legal Health Record. If you have any questions, please contact the author of this message via ITS. Dr. Janet Sultana The patients principal diagnosis the diagnosis that was chiefly responsible for the admission - has not been clearly identified and clarification is requested. The patient presented with the following UTI, Sacrum decubitus ulcer and fatigue. History/Risk factors: 78 year old female presents to the ED for being more fatigued than usual. Medical History: HTN, CVA/TIA, Dementia, DM2, HTN and OA. 12/07, H&P Clinical Indicators: Lab findings, 12/06: Wbc 12.3; UA - Blood trace, Nitrate positive, Leukocyte esterase small, Wbc 16. XRAY Sacrum Coccyx, 12/06: Soft tissue gas posterior to the coccyx likely related to decubitus ulcer. Osteopenia and chronic / degenerative changes. Vital Signs, 12/06: B/P 139/81; HR 85; Temp 98.4 F Oral; RR 18; SpO2 97% RA BMI 28.3kg Wound Culture Final, 12/07: Methicillin resist S. aureus ID Consult, 12/07: patient with a stage IV sacral pressure ulcer with the patient has for couple of months now and did have a previous episode of osteomyelitis for the patient received adequate antibiotic therapy patient was seen last week in the office and her sacral wound was healing well currently did have wound VAC we will leave on the wound tomorrow at the time of wound VAC change suspicious low for infected sacral wound 2-patient did have a weakness which could be likely multifactorial did have a positive UA and a possible component of UTI. Treatment: 12/07 Cefepime HCI 2gm IVPB Q8H, Wound Vac Consults: Infectious Disease see above In your professional opinion, can you please clarify which diagnosis, after study, was the reason chiefly responsible for the admission? [ ] UTI [ xxxx] MRSA infected Sacrum decubitus ulcer [ ] Other, please specify [ ] Unable to determine (Template Last Revised: November 2020) MTDD
--- NOTE | 2023-12-10 13:33 | CDI ---
Documentation Clarification Form Date: 12/10/2023 01:16:39 PM From: Tika Ramos RN CCDS Phone: [phone] Admit Date: 12/08/2023 03:59:00 AM Patient Name: Adeline Ramírez Visit Number: [id number] Discharge Date: ATTENTION: The Clinical Documentation Specialists (CDI) and [facility] Coding Staff appreciate your assistance in clarifying documentation. Please respond to the clarification below the line at the bottom and electronically sign. The CDI & [facility] Coding staff will review the response and follow-up if needed. Please note: Queries are made part of the Legal Health Record. If you have any questions, please contact the author of this message via ITS. Dr. Janet Sultana Conflicting documentation has been found in the medical record. As attending physician, please provide clarification. Stage III decubitus ulcer, H&P, 12/07 Stage IV Sacral pressure ulcer , ID consult, 12/07 History/Risk factors: 78 year old female presents to the ED for being more fatigued than usual. Medical History: HTN, CVA/TIA, Dementia, DM2, HTN and OA. 12/07, H&P Clinical Indicators: XRAY Sacrum Coccyx, 12/06: Soft tissue gas posterior to the coccyx likely related to decubitus ulcer. Osteopenia and chronic / degenerative changes. Nursing Wound Assessment, 12/07: Coccyx, pressure injury poa, Stage III, Drainage Amount Scant. ID consult, 12/07: Stage IV sacral pressure ulcer with the patient has for couple of months now and did have previous episode of osteomyelitis for the patient received adequate antibiotic therapy patient was seen last week in the office and her sacral wound was healing well currently did have wound vac. Treatment: 12/07 Cefepime HCI 2gm IVPB Q8H, Wound vac, Offf loading Q2H, Pressure relieving device, Absorbent under pad check hourly. Consult: See above Please clarify which diagnosis is most appropriate: [ ] Stage III Sacral decubitus ulcer [ xxxx ] Stage IV Sacral pressure ucer [ ] Other (please specify) [ ] Unable to determine (Template Last Revised: November 2020) MTDD
--- NOTE | 2023-12-10 16:13 | P.PN ---
Subjective Progress Note Date: 12/10/23 Principal diagnosis: Reason for follow-up is possible UTI and sacral pressure ulcer Patient is a 78-year-old -Beninese female with a past medical history significant for diabetes mellitus hypertension osteoarthritis CVA TIA patient also have a history of infected sacral pressure ulcer with underlying osteomyelitis for the patient has completed extensive course of IV and by therapy currently local wound care with a wound VAC patient has been brought into the hospital for evaluation of fatigue and weakness did have a positive UA concerning for possible UTI. On today's visit that is 12/10/2023, the patient continues to be afebrile, the patient is on room air and breathing comfortably, the Pt is more awake alert today denies any chest pain no cough no vomiting no diarrhea or any other changes reported by the nursing staff. Patient white count normalized to 9.91, creatinine is 0.6 sacral wound culture growing MRSA Objective - Vital Signs Vital signs: Vital Signs Temp 97 F L 12/10/23 11:18 Pulse 83 12/10/23 11:18 Resp 16 12/10/23 11:58 BP 131/76 12/10/23 11:18 Pulse Ox 99 12/10/23 07:27 FiO2 Intake & Output 12/09/23 12/10/23 12/10/23 18:59 06:59 18:59 Output Total 2500 350 Balance -2500 -350 Weight 74.843 kg Output: Urine 2500 350 Other: Voiding Method Indwelling Catheter # Bowel Movements 1 - Exam GENERAL DESCRIPTION: An elderly female lying in bed in no distress RESPIRATORY SYSTEM: Unlabored breathing , decreased breath sounds at bases HEART: S1 S2 regular rate and rhythm , ABDOMEN: Soft , no tenderness Sacral wound, wound VAC was removed wound base looks clean with no slough tissue there is no surrounding cellulitis or any foul-smelling drainage EXTREMITIES: No edema feet - Labs CBC & Chem 7: 12/10/23 06:01 12/10/23 06:01 Labs: Abnormal Lab Results - Last 24 Hours (Table) 12/09/23 12/09/23 12/10/23 Range/Units 16:48 21:03 05:34 RBC (4.10-5.20) X 10*6/uL Hgb (12.0-15.0) g/dL Hct (37.2-46.3) % MCHC (32.0-37.0) g/dL RDW (11.5-14.5) % Immature Gran # (0.00-0.04) X 10*3/uL BUN (9.0-27.0) mg/dL POC Glucose (mg/dL) 287 H 146 H 130 H (70-110) mg/dL Albumin (3.8-4.9) g/dL Globulin (1.6-3.3) g/dL Albumin/Globulin Ratio (1.60-3.17) Ratio 12/10/23 12/10/23 12/10/23 Range/Units 06:01 06:01 11:36 RBC 2.97 L (4.10-5.20) X 10*6/uL Hgb 8.9 L (12.0-15.0) g/dL Hct 27.9 L (37.2-46.3) % MCHC 31.9 L (32.0-37.0) g/dL RDW 14.6 H (11.5-14.5) % Immature Gran # 0.07 H (0.00-0.04) X 10*3/uL BUN 7.6 L (9.0-27.0) mg/dL POC Glucose (mg/dL) 215 H (70-110) mg/dL Albumin 2.8 L (3.8-4.9) g/dL Globulin 5.0 H (1.6-3.3) g/dL Albumin/Globulin Ratio 0.56 L (1.60-3.17) Ratio Microbiology - Last 24 Hours (Table) 12/08/23 03:15 Anaerobic Culture - Preliminary Buttock 12/08/23 03:15 Gram Stain - Final Buttock Wound Culture - Final Methicillin resist S. aureus Assessment and Plan (1) Stage IV pressure ulcer of sacral region Current Visit: No Status: Acute Code(s): L89.154 - PRESSURE ULCER OF SACRAL REGION, STAGE 4 SNOMED Code(s): 89008976896924 (2) Urinary tract infection Current Visit: No Status: Acute Code(s): N39.0 - URINARY TRACT INFECTION, SITE NOT SPECIFIED SNOMED Code(s): 93258520 (3) MRSA (methicillin resistant staph aureus) culture positive Current Visit: Yes Status: Acute Code(s): Z22.322 - CARRIER OR SUSPECTED CARRIER OF METHICILLIN RESIS STAPH SNOMED Code(s): 616420445 Plan: 1-patient with a stage IV sacral pressure ulcer with the patient has for couple of months now and did have a previous episode of osteomyelitis for the patient received adequate antibiotic therapy, patient did have a superficial culture from the sacral wound to the right MRSA wound was examined with the patient nurse wound base looks clean there is no surrounding redness more likely r epresenting colonization rather than infection as the patient shows improvement without getting any treatment for vancomycin, hence we will hold on adding any due to be directed over this positive culture which grew more likely colonization 2-patient did have a weakness which could be likely multifactorial did have a positive UA and a possible component of UTI and patient seem to be improving with cefepime to continue while waiting for the culture to finalize Care has been discussed in detail with the son as well as the daughter at the bedside Dictation was produced using [employer] dictation software. please excuse any grammatical, word or spelling errors. Time with Patient: Less than 30
[2023-12-10 16:44] LABS: Glucose,Whole Blood 86 mg/dL (70-110)
[2023-12-10 20:09] LABS: Glucose,Whole Blood 122 mg/dL (70-110)
[2023-12-11 05:58] LABS: Glucose,Whole Blood 97 mg/dL (70-110)
--- NOTE | 2023-12-11 11:17 | P.PN ---
Subjective Progress Note Date: 12/11/23 this is a 78-year-old female patient who presented to the ER with concerns of increased weakness. Patient is a poor historian and there is currently no family at bedside most history is obtained from medical record patient has past medical history of dementia, CVA, diabetes mellitus, hypertension, oste oarthritis, wounds in which she follows with wound care and PT OT. Patient has decubitus ulcer. Anxiety, bipolar and depression. According to records patient has had increasing frequent falls and completing PT OT at home. Head and cervical CT completed showing no evidence of acute cervical spine fracture or traumatic malalignment. Generalized osteopenia. 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 Bilateral lower extremity venous Doppler completed showing negative for DVT. X- ray of sacrum and coccyx completed showing soft tissue gas posterior to the Sleep around related to decubitus ulcer no clear radiographic evidence of acute bony abnormality. Chest x-ray completed showing heart size is prominent increased lung volumes by basilar opacities left greater than right could be due to atelectasis or developing infiltrate. Current vital signs temp 98.2, heart rate 91, respiratory 18, blood pressure 124/62 with pulse ox 96% on room air. Influenza RSV COVID-19 negative UA showing small amount of leukocyte Estrace wi ll order urine culture. White blood cell 12.3 hemoglobin 9.7. At this time patient will be admitted infectious disease service is consulted wound care service is consulted. Urine and wound cultures ordered On 12/09/2023 patient was seen and examined on the medical floor she is alert and oriented 3 in no apparent distress she is still complaining of lower back pain and pain in the sacral area otherwise she denies any complaints there is no fever or chills no headache or dizziness no chest pain no shortness of breath no cough no nausea or vomiting no abdominal pain no diarrhea and no urinary symptoms On 12/10/2023 patients alert and oriented 3. Current vital signs temp 97.8, heart rate 78, respiratory rate 18, blood pressure 148/51 with pulse ox of 99% on room air. Patient remains on IV Maxipime. Infectious disease and orthopedic services following. Patient complains of generalized pain. Patient denies chest pain or shortness breath. Patient denies nausea vomiting or diarrhea. Patient denies any urinary burning or frequency on 12/11/2023 patient is alert and oriented x 3. current vital temps 98.9, Hr 77, RR 18 blood pressure 147/74 with pulse ox 98%. Urine and growing MRSA. Patient remains on IV antibiotics per infectious disease. Patient denies chest pain or shortness of breath. Patient denies nausea vomiting or diarrhea. Patient denies any urinary burning or frequency Objective - Vital Signs Vital signs: Vital Signs Temp 98.9 F 12/11/23 07:30 Pulse 77 12/11/23 07:30 Resp 18 12/11/23 07:30 BP 147/74 12/11/23 07:30 Pulse Ox 98 12/11/23 07:30 FiO2 Intake & Output 12/10/23 12/11/23 12/11/23 18:59 06:59 18:59 Output Total 1200 1250 1350 Balance -1200 -1250 -1350 Output: Urine 1200 1250 1350 Other: Voiding Method Indwelling Catheter Indwelling Catheter Indwelling Catheter - Exam Head normocephalic Neck supple Lungs clear to auscultation bilaterally no wheezing or crackles Heart regular rate and rhythm S1-S2, no rub or gallop Abdomen is soft nontender nondistended positive bowel sounds no hepatosplenomegaly Extremities no edema Neuro alert and orientated to 1. Known dementia Decubitus ulcer noted coccyx - Labs CBC & Chem 7: 12/10/23 06:01 12/10/23 06:01 Labs: Abnormal Lab Results - Last 24 Hours (Table) 12/10/23 12/10/23 12/10/23 Range/Units 06:01 11:36 20:07 BUN 7.6 L (9.0-27.0) mg/dL POC Glucose (mg/dL) 215 H 122 H (70-110) mg/dL Albumin 2.8 L (3.8-4.9) g/dL Globulin 5.0 H (1.6-3.3) g/dL Albumin/Globulin Ratio 0.56 L (1.60-3.17) Ratio Microbiology - Last 24 Hours (Table) 12/08/23 11:08 Urine Culture - Final Urine,Voided Methicillin resist S. aureus 12/08/23 03:15 Anaerobic Culture - Preliminary Buttock 12/08/23 03:15 Gram Stain - Final Buttock Wound Culture - Final Methicillin resist S. aureus Assessment and Plan Assessment: 1. Increased weakness and falls 2. Stage III decubitus ulcer. Patient follows with wound care 3. History of diabetes mellitus type 2 4. History of dementia 5. History of anemia 6. History of lumbar discitis 7. History of essential hypertension DVT prophylaxis eliquis. GI prophylaxis Protonix Infectious disease Wound Care service is consulted Wound and urine cultures ordered Awaiting pharmacy verification of home medication Repeat labs ordered in a.m. PT OT and social work services consulted
[2023-12-11 11:18] LABS: Basophils # (A) 0.03 X 10*3/uL (0.00-0.10); Basophils % (A) 0.4 %; Eosinophils # (A) 0.31 X 10*3/uL (0.04-0.35); Eosinophils % (A) 3.7 %; HCT 28.6 % (37.2-46.3); HGB 8.9 g/dL (12.0-15.0); Lymphocytes # (A) 3.42 X 10*3/uL (0.90-5.00); Lymphocytes % (A) 40.8 %; MCH 28.9 pg (27.0-32.0); MCHC 31.1 g/dL (32.0-37.0); MCV 92.9 FL (80.0-97.0); Mean Platelet Volume 9.3 FL (9.5-12.2); Monocytes # (A) 0.42 X 10*3/uL (0.20-1.00); NRBC Per 100 WBC 0 X 10*3/uL (0.00-0.01); Neutrophils # (A) 4.13 X 10*3/uL (1.80-7.70); Neutrophils % (A) 49.1 %; Platelet Count 350 X 10*3/uL (140-440); RBC 3.08 X 10*6/uL (4.10-5.20); RDW 14.7 % (11.5-14.5); WBC 8.39 X 10*3/uL (4.50-10.00)
[2023-12-11 11:36] LABS: ALT 15 U/L (8-44); AST 20 U/L (13-35); Albumin 2.9 g/dL (3.8-4.9); Albumin/Globulin Ratio 0.55 Ratio (1.60-3.17); Alkaline Phosphatase 107 U/L (41-126); Blood Urea Nitrogen 8.1 mg/dL (9.0-27.0); Calcium 9.4 mg/dL (8.7-10.3); Carbon Dioxide 26.2 mmol/L (21.6-31.8); Chloride 106 mmol/L (96-109); Globulin 5.3 g/dL (1.6-3.3); Glucose 93 mg/dL (70-110); Potassium 4.1 mmol/L (3.5-5.5); Sodium 139 mmol/L (135-145); Total Bilirubin <0.2 mg/dL (0.3-1.2); Total Protein 8.2 g/dL (6.2-8.2)
[2023-12-11] MEDS ORDERED: VANCOMYCIN IV PER PHARMACY 1 EACH MISC MISCELLANE PRN (11:49)
[2023-12-11 11:53] LABS: Glucose,Whole Blood 104 mg/dL (70-110)
--- NOTE | 2023-12-11 12:34 | P.CONS ---
History of Present Illness - Reason for Consult Consult date: 12/11/23 wound care - History of Present Illness This is a 77-year-old patient being seen on [address] for a stage III pressure ulcer. Patient is currently under treatment in the wound care center. Her last wound appointment was on November 04. At that time the ulceration was showing improvement with size and morphology. Patient no longer has bone exposed. Original cause of wound was Pressure Injury. The date acquired was: 05/26/2023. The wound has been in treatment 10 weeks. The wound is currently classified as a Category/Stage IV wound with etiology of Pressure Ulcer and is located on the Medial Sacrum. The wound measures 2.9cm length x 2.0cm width x 1.2cm depth; 6.032cm^2 area and 9.048cm^3 volume. There is Fat Layer (Subcutaneous Tissue) and fascia exposed. There is no tunneling noted, however, there is undermining starting at :00 and ending at :00. There is a medium amount of drainage noted. The wound margin is well defined and not attached to the wound base. There is large (67-100%) red, pink granulation within the wound bed. There is a small (1- 33%) amount of necrotic tissue within the wound bed. The periwound skin appearance exhibited: Scarring. The periwound skin appearance did not exhibit: Callus, Crepitus, Excoriation, Induration, Rash, Atrophie Юлия, Cyanosis, Ecchymosis, Hemosiderin Staining, Mottled, Pallor, Rubor, Erythema. Periwound temperature was noted as No Abnormality. Review Of Systems: Constitutional: No fever, no chills, no night sweats. No weight change. No weakness, fatigue or lethargy. No daytime sleepiness. Integumentary:reports wounds, no lesions. No rash or pruritus. No unusual bruising. No change in hair or nails. Physical exam: General Appearance: Alert, cooperative, no distress, appears stated age. Skin: See HPI all other Skin color, texture, tugor normal, no rashes or lesions. Neurologic: Alert oriented x3 Assessment: 1. Sacral pressure ulcer stage III 2. Diabetes with skin ulceration 3. Dementia Plan: 1.Apply negative pressure wound VAC at 125 mmHg continuous pressure with black foam. Patient's next wound care appointment is December 15 at 9:00 Thank you for the consultation any questions please contact the wound care center DNP note has been reviewed and discussed with Dr. Lim and the impression and plan of care has been directed as dictated. Past Medical History Past Medical History: CVA/TIA, Dementia, Diabetes Mellitus, Hypertension, Osteoarthritis (OA) Additional Past Medical History / Comment(s): Pt states she is on an antibiotic for ear infection/throat infection at this time, TIA which affected speech, pt denies HTN but it is documented in past medical hx, diet controlled diabetes History of Any Multi-Drug Resistant Organisms: None Reported Past Surgical History: Orthopedic Surgery Additional Past Surgical History / Comment(s): I&D tooth abscess, left trigger finger surgery Past Anesthesia/Blood Transfusion Reactions: No Reported Reaction Past Psychological History: Anxiety, Bipolar, Depression Additional Psychological History / Comment(s): Pt states she sees a Dr. Ramírez for her mental health care. She resides with her granddaughter and 3 greatgrand children. She does not drive. She gets to appts with family or friends or cab. uses no assistive devices. Smoking Status: Never smoker Past Alcohol Use History: None Reported Past Drug Use History: None Reported - Past Family History Father Family Medical History: No Reported History Mother Family Medical History: No Reported History Medications and Allergies Home Medications Medication Instructions Recorded Confirmed Type Apixaban [Eliquis] 5 mg PO BID 07/29/23 12/08/23 History Ascorbic Acid [Vitamin C] 250 mg PO DAILY 07/29/23 12/08/23 History Benztropine Mesylate [Cogentin] 2 mg PO HS 07/29/23 12/08/23 History Cholecalciferol [Vitamin D3 (25 25 mcg PO DAILY 07/29/23 12/08/23 History Mcg = 1000 Iu)] Famotidine [Pepcid] 20 mg PO DAILY 07/29/23 12/08/23 History Ferrous Sulfate [Iron] 325 mg PO DAILY 07/29/23 12/08/23 History Lactulose 20 gm PO DAILY PRN 07/29/23 12/08/23 History Multivitamins, Thera [Multivitamin 1 tab PO DAILY 07/29/23 12/08/23 History (formulary)] Sennosides/Docusate Sodium [Senna 1 tab PO BID 07/29/23 12/08/23 History Plus 8.6-50 mg Tablet] polyethylene glycoL 3350 [Miralax] 17 gm PO BID 07/29/23 12/08/23 History sitaGLIPtin [Januvia] 50 mg PO DAILY 07/29/23 12/08/23 History Acetaminophen Tab [Tylenol] 500 mg PO Q6HR PRN tab 08/09/23 12/08/23 Rx Metoprolol Tartrate [Lopressor] 25 mg PO TID #0 08/09/23 12/08/23 Rx haloperidoL [Haldol] 2.5 mg PO HS #3 tab 08/09/23 12/08/23 Rx Diclofenac Sodium Gel [Voltaren 1% 2 gm TOPICAL Q6H 08/15/23 12/08/23 History Gel] INSULIN LISPRO (HumaLOG) [humaLOG] See Protocol SQ AC-TID 10/08/23 12/08/23 History Insulin Glargine,Hum.rec.anlog 10 units SQ DAILY 10/08/23 12/08/23 History [Lantus Solostar Pen] Gabapentin [Neurontin] 100 mg PO BID #6 cap 10/11/23 12/08/23 Rx droNABinol [Marinol] 2.5 mg PO BID #6 cap 11/11/23 12/08/23 Rx HYDROcodone/APAP 5-325MG [[place] 1 tab PO Q8H PRN 12/08/23 12/08/23 History 5-325] Allergies Allergy/AdvReac Type Severity Reaction Status Date / Time metformin Allergy Unknown Verified 12/08/23 11:22 Sulfa (Sulfonamide Allergy Unknown Verified 12/08/23 11:22 Antibiotics) Physical Exam Vitals: Vital Signs Temp Pulse Resp BP Pulse Ox 12/11/23 07:30 98.9 F 77 18 147/74 98 12/11/23 01:52 98.3 F 76 17 131/64 97 12/10/23 19:13 97.5 F L 76 18 131/54 98 12/10/23 15:14 98.7 F 65 16 142/71 97 Intake and Output 12/10/23 12/11/23 12/11/23 22:59 06:59 14:59 Output Total 600 1250 1350 Balance -600 -1250 -1350 Output: Urine 600 1250 1350 Other: Voiding Method Indwelling Catheter Indwelling Catheter Results CBC & Chem 7: 12/11/23 06:22 12/11/23 06:22 Labs: Abnormal Lab Results - Last 24 Hours (Table) 12/10/23 12/11/23 12/11/23 Range/Units 20:07 06:22 06:22 RBC 3.08 L (4.10-5.20) X 10*6/uL Hgb 8.9 L (12.0-15.0) g/dL Hct 28.6 L (37.2-46.3) % MCHC 31.1 L (32.0-37.0) g/dL RDW 14.7 H (11.5-14.5) % MPV 9.3 L (9.5-12.2) FL Immature Gran # 0.08 H (0.00-0.04) X 10*3/uL BUN 8.1 L (9.0-27.0) mg/dL POC Glucose (mg/dL) 122 H (70-110) mg/dL Total Bilirubin <0.2 L (0.3-1.2) mg/dL Albumin 2.9 L (3.8-4.9) g/dL Globulin 5.3 H (1.6-3.3) g/dL Albumin/Globulin Ratio 0.55 L (1.60-3.17) Ratio Microbiology - Last 24 Hours (Table) 12/08/23 11:08 Urine Culture - Final Urine,Voided Methicillin resist S. aureus 12/08/23 03:15 Anaerobic Culture - Preliminary Buttock 12/08/23 03:15 Gram Stain - Final Buttock Wound Culture - Final Methicillin resist S. aureus Assessment and Plan (1) Pressure ulcer of sacral region, stage 3 Current Visit: No Status: Acute Code(s): L89.153 - PRESSURE ULCER OF SACRAL REGION, STAGE 3 SNOMED Code(s): 98057159657110 (2) Type 2 diabetes mellitus with other skin ulcer Current Visit: No Status: Acute Code(s): E11.622 - TYPE 2 DIABETES MELLITUS WITH OTHER SKIN ULCER; L98.499 - NON-PRESSURE CHRONIC ULCER OF SKIN OF SITES W UNSP SEVERITY SNOMED Code(s): 992415467 (3) Dementia in other diseases classified elsewhere, moderate, without behavioral disturbance, psychotic disturbance, mood disturbance, and anxiety Current Visit: No Status: Acute Code(s): F02.B0 - DEM IN OTHER DIS CLASSD ELSWHR, MOD, W/O BEH/PSYCH/MOOD/ANX SNOMED Code(s): 712232042
[2023-12-11] MEDS: VANCOMYCIN 1,250 MG in SODIUM CHLORIDE 0.9% 250 ML IVPB ONE (14:13)
[2023-12-11 16:40] LABS: Glucose,Whole Blood 113 mg/dL (70-110)
[2023-12-11 20:10] LABS: Glucose,Whole Blood 186 mg/dL (70-110)
[2023-12-11] MEDS: VANCOMYCIN 1,250 MG in SODIUM CHLORIDE 0.9% 250 ML IVPB SCH (21:00)
[2023-12-12 06:03] LABS: Glucose,Whole Blood 129 mg/dL (70-110)
[2023-12-12 11:30] LABS: HCT 29.2 % (37.2-46.3); HGB 9.1 g/dL (12.0-15.0); MCH 29.4 pg (27.0-32.0); MCHC 31.2 g/dL (32.0-37.0); MCV 94.2 FL (80.0-97.0); Mean Platelet Volume 9.4 FL (9.5-12.2); NRBC Per 100 WBC 0.02 X 10*3/uL (0.00-0.01); Platelet Count 375 X 10*3/uL (140-440); RDW 14.8 % (11.5-14.5); WBC 11.04 X 10*3/uL (4.50-10.00)
[2023-12-12 11:45] LABS: Glucose,Whole Blood 242 mg/dL (70-110)
[2023-12-12 11:58] LABS: ALT 13 U/L (8-44); AST 17 U/L (13-35); Albumin 2.8 g/dL (3.8-4.9); Albumin/Globulin Ratio 0.54 Ratio (1.60-3.17); Alkaline Phosphatase 110 U/L (41-126); BUN/Creat Ratio 31.83 Ratio (12.00-20.00); Blood Urea Nitrogen 19.1 mg/dL (9.0-27.0); Calcium 9.5 mg/dL (8.7-10.3); Carbon Dioxide 25.9 mmol/L (21.6-31.8); Chloride 106 mmol/L (96-109); Globulin 5.2 g/dL (1.6-3.3); Glucose 124 mg/dL (70-110); Potassium 4.3 mmol/L (3.5-5.5); Sodium 137 mmol/L (135-145); Total Bilirubin 0.6 mg/dL (0.3-1.2)
[2023-12-12 12:06] LABS: Basophils # (M) 0 X 10*3/uL (0.00-0.10); Eosinophils # (M) 0.33 X 10*3/uL (0.04-0.35); Lymphocytes # (M) 5.41 X 10*3/uL (0.90-5.00); Monocytes # (M) 0.33 X 10*3/uL (0.20-1.00); Neutrophils # (M) 4.97 X 10*3/uL (1.80-7.70); Neutrophils % (M) 45 %
--- NOTE | 2023-12-12 15:51 | P.PN ---
Subjective Progress Note Date: 12/12/23 Principal diagnosis: Reason for follow-up is possible UTI and sacral pressure ulcer Patient is a 78-year-old -[place]is[place] female with a past medical history significant for diabetes mellitus hypertension osteoarthritis CVA TIA patient also have a history of infected sacral pressure ulcer with underlying osteomyelitis for the patient has completed extensive course of IV and by therapy currently local wound care with a wound VAC patient has been brought into the hospital for evaluation of fatigue and weakness did have a positive UA concerning for possible UTI. On today's visit that is 12/12/2023, patient has been afebrile, patient is more awake and alert today up in the chair, the patient breathing comfortably and is currently on room air, patient denies having any significant cough no chest pain shortness of breath, patient denies nausea vomiting or diarrhea and no abdominal pain. Patient white count slightly up to 11.04 creatinine 0.6, blood cultures pending Objective - Vital Signs Vital signs: Vital Signs Temp 98.6 F 12/12/23 14:00 Pulse 85 12/12/23 14:00 Resp 16 12/12/23 14:00 BP 117/65 12/12/23 14:00 Pulse Ox 98 12/12/23 14:00 FiO2 Intake & Output 12/11/23 12/12/23 12/12/23 18:59 06:59 18:59 Intake Total 100 Output Total 2150 Balance -2049 Weight 74.843 kg Intake: Oral 100 Output: Urine 2150 Other: Voiding Method Indwelling Catheter Indwelling Catheter - Exam GENERAL DESCRIPTION: An elderly female lying in bed in no distress RESPIRATORY SYSTEM: Unlabored breathing , decreased breath sounds at bases HEART: S1 S2 regular rate and rhythm , ABDOMEN: Soft , no tenderness Sacral wound, wound VAC was removed wound base looks clean with no slough tissue there is no surrounding cellulitis or any foul-smelling drainage EXTREMITIES: No edema feet - Labs CBC & Chem 7: 12/12/23 06:30 12/12/23 06:30 Labs: Abnormal Lab Results - Last 24 Hours (Table) 12/11/23 12/11/23 12/12/23 Range/Units 16:39 20:08 06:02 WBC (4.50-10.00) X 10*3/uL RBC (4.10-5.20) X 10*6/uL Hgb (12.0-15.0) g/dL Hct (37.2-46.3) % MCHC (32.0-37.0) g/dL RDW (11.5-14.5) % MPV (9.5-12.2) FL Lymphocytes # (Manual) (0.90-5.00) X 10*3/uL NRBC/100 WBC Diff (0.00-0.01) X 10*3/uL BUN/Creatinine Ratio (12.00-20.00) Ratio Glucose (70-110) mg/dL POC Glucose (mg/dL) 113 H 186 H 129 H (70-110) mg/dL Albumin (3.8-4.9) g/dL Globulin (1.6-3.3) g/dL Albumin/Globulin Ratio (1.60-3.17) Ratio 12/12/23 12/12/23 12/12/23 Range/Units 06:30 06:30 11:43 WBC 11.04 H (4.50-10.00) X 10*3/uL RBC 3.10 L (4.10-5.20) X 10*6/uL Hgb 9.1 L (12.0-15.0) g/dL Hct 29.2 L (37.2-46.3) % MCHC 31.2 L (32.0-37.0) g/dL RDW 14.8 H (11.5-14.5) % MPV 9.4 L (9.5-12.2) FL Lymphocytes # (Manual) 5.41 H (0.90-5.00) X 10*3/uL NRBC/100 WBC Diff 0.02 H (0.00-0.01) X 10*3/uL BUN/Creatinine Ratio 31.83 H (12.00-20.00) Ratio Glucose 124 H (70-110) mg/dL POC Glucose (mg/dL) 242 H (70-110) mg/dL Albumin 2.8 L (3.8-4.9) g/dL Globulin 5.2 H (1.6-3.3) g/dL Albumin/Globulin Ratio 0.54 L (1.60-3.17) Ratio Microbiology - Last 24 Hours (Table) 12/08/23 03:15 Anaerobic Culture - Final Buttock Assessment and Plan (1) Stage IV pressure ulcer of sacral region Current Visit: No Status: Acute Code(s): L89.154 - PRESSURE ULCER OF SACRAL REGION, STAGE 4 SNOMED Code(s): 86961491867815 (2) Urinary tract infection Current Visit: No Status: Acute Code(s): N39.0 - URINARY TRACT INFECTION, SITE NOT SPECIFIED SNOMED Code(s): 90834378 (3) MRSA (methicillin resistant staph aureus) culture positive Current Visit: Yes Status: Acute Code(s): Z22.322 - CARRIER OR SUSPECTED CARRIER OF METHICILLIN RESIS STAPH SNOMED Code(s): 489611392 Plan: 1-patient with a stage IV sacral pressure ulcer with the patient has for couple of months now and did have a previous episode of osteomyelitis for the patient received adequate antibiotic therapy, patient did have a superficial culture from the sacral wound to the right MRSA wound was examined with the patient nurse wound base looks clean there is no surrounding redness more likely representing colonization rather than infection as the patient shows improvement without getting any treatment for vancomycin, hence we will hold on adding any due to be directed over this positive culture which grew more likely colonization 2-patient did have a weakness which could be likely multifactorial did have a positive UA and a possible component of UTI, urine has been growing MRSA, patient has been started on vancomycin we are currently waiting for the blood cu lture and will also check inflammatory marker that we will decide her discharge antibiotics Daughter at the bedside questions answered Dictation was produced using [employer] dictation software. please excuse any grammatical, word or spelling errors. Time with Patient: Less than 30
--- NOTE | 2023-12-12 15:51 | P.PN ---
Subjective Progress Note Date: 12/11/23 Principal diagnosis: Reason for follow-up is possible UTI and sacral pressure ulcer Patient is a 78-year-old -Vietnamese female with a past medical history significant for diabetes mellitus hypertension osteoarthritis CVA TIA patient also have a history of infected sacral pressure ulcer with underlying osteomyelitis for the patient has completed extensive course of IV and by therapy currently local wound care with a wound VAC patient has been brought into the hospital for evaluation of fatigue and weakness did have a positive UA concerning for possible UTI. On today's visit that is 12/11/2023, Patient is afebrile patient is currently on room air and patient is more lethargic today and did not answer any question no other changes reported by the nursing staff Patient white count normal at 8.39 creatinine 0.6 urine culture growing MRSA Objective - Vital Signs Vital signs: Vital Signs Temp 98.9 F 12/11/23 07:30 Pulse 77 12/11/23 07:30 Resp 18 12/11/23 07:30 BP 147/74 12/11/23 07:30 Pulse Ox 98 12/11/23 07:30 FiO2 Intake & Output 12/10/23 12/11/23 12/11/23 18:59 06:59 18:59 Output Total 1200 1250 1350 Balance -1200 -1250 -1350 Output: Urine 1200 1250 1350 Other: Voiding Method Indwelling Catheter Indwelling Catheter Indwelling Catheter - Exam GENERAL DESCRIPTION: An elderly female lying in bed in no distress RESPIRATORY SYSTEM: Unlabored breathing , decreased breath sounds at bases HEART: S1 S2 regular rate and rhythm , ABDOMEN: Soft , no tenderness Sacral wound, wound VAC was removed wound base looks clean with no slough tissue there is no surrounding cellulitis or any foul-smelling drainage EXTREMITIES: No edema feet - Labs CBC & Chem 7: 12/12/23 06:30 12/12/23 06:30 Labs: Abnormal Lab Results - Last 24 Hours (Table) 12/10/23 12/11/23 12/11/23 Range/Units 20:07 06:22 06:22 RBC 3.08 L (4.10-5.20) X 10*6/uL Hgb 8.9 L (12.0-15.0) g/dL Hct 28.6 L (37.2-46.3) % MCHC 31.1 L (32.0-37.0) g/dL RDW 14.7 H (11.5-14.5) % MPV 9.3 L (9.5-12.2) FL Immature Gran # 0.08 H (0.00-0.04) X 10*3/uL BUN 8.1 L (9.0-27.0) mg/dL POC Glucose (mg/dL) 122 H (70-110) mg/dL Total Bilirubin <0.2 L (0.3-1.2) mg/dL Albumin 2.9 L (3.8-4.9) g/dL Globulin 5.3 H (1.6-3.3) g/dL Albumin/Globulin Ratio 0.55 L (1.60-3.17) Ratio Microbiology - Last 24 Hours (Table) 12/08/23 11:08 Urine Culture - Final Urine,Voided Methicillin resist S. aureus 12/08/23 03:15 Anaerobic Culture - Preliminary Buttock 12/08/23 03:15 Gram Stain - Final Buttock Wound Culture - Final Methicillin resist S. aureus Assessment and Plan (1) Stage IV pressure ulcer of sacral region Current Visit: No Status: Acute Code(s): L89.154 - PRESSURE ULCER OF SACRAL REGION, STAGE 4 SNOMED Code(s): 38634505866261 (2) Urinary tract infection Current Visit: No Status: Acute Code(s): N39.0 - URINARY TRACT INFECTION, SITE NOT SPECIFIED SNOMED Code(s): 79252776 (3) MRSA (methicillin resistant staph aureus) culture positive Current Visit: Yes Status: Acute Code(s): Z22.322 - CARRIER OR SUSPECTED CARRIER OF METHICILLIN RESIS STAPH SNOMED Code(s): 426415746 Plan: 1-patient with a stage IV sacral pressure ulcer with the patient has for couple of months now and did have a previous episode of osteomyelitis for the patient received adequate antibiotic therapy, patient did have a superficial culture from the sacral wound to the right MRSA wound was examined with the patient nurse wound base looks clean there is no surrounding redness more likely representing colonization rather than infection as the patient shows improvement without getting any treatment for vancomycin, hence we will hold on adding any due to be directed over this positive culture which grew more likely colonization 2-patient did have a weakness which could be likely multifactorial did have a positive UA and a possible component of UTI, urine has been growing MRSA we will go ahead and draw blood cultures x 1 to make sure evidence of any bacteremia we will add vancomycin and discontinue cefepime Dictation was produced using [employer] dictation software. please excuse any grammatical, word or spelling errors. Time with Patient: Less than 30
[2023-12-12 16:25] LABS: Glucose,Whole Blood 129 mg/dL (70-110)
--- NOTE | 2023-12-12 16:56 | P.PN ---
Subjective Progress Note Date: 12/12/23 this is a 78-year-old female patient who presented to the ER with concerns of increased weakness. Patient is a poor historian and there is currently no family at bedside most history is obtained from medical record patient has past medical history of dementia, CVA, diabetes mellitus, hypertension, oste oarthritis, wounds in which she follows with wound care and PT OT. Patient has decubitus ulcer. Anxiety, bipolar and depression. According to records patient has had increasing frequent falls and completing PT OT at home. Head and cervical CT completed showing no evidence of acute cervical spine fracture or traumatic malalignment. Generalized osteopenia. 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 Bilateral lower extremity venous Doppler completed showing negative for DVT. X- ray of sacrum and coccyx completed showing soft tissue gas posterior to the Sleep around related to decubitus ulcer no clear radiographic evidence of acute bony abnormality. Chest x-ray completed showing heart size is prominent increased lung volumes by basilar opacities left greater than right could be due to atelectasis or developing infiltrate. Current vital signs temp 98.2, heart rate 91, respiratory 18, blood pressure 124/62 with pulse ox 96% on room air. Influenza RSV COVID-19 negative UA showing small amount of leukocyte Estrace wi ll order urine culture. White blood cell 12.3 hemoglobin 9.7. At this time patient will be admitted infectious disease service is consulted wound care service is consulted. Urine and wound cultures ordered On 12/09/2023 patient was seen and examined on the medical floor she is alert and oriented 3 in no apparent distress she is still complaining of lower back pain and pain in the sacral area otherwise she denies any complaints there is no fever or chills no headache or dizziness no chest pain no shortness of breath no cough no nausea or vomiting no abdominal pain no diarrhea and no urinary symptoms On 12/10/2023 patients alert and oriented 3. Current vital signs temp 97.8, heart rate 78, respiratory rate 18, blood pressure 148/51 with pulse ox of 99% on room air. Patient remains on IV Maxipime. Infectious disease and orthopedic services following. Patient complains of generalized pain. Patient denies chest pain or shortness breath. Patient denies nausea vomiting or diarrhea. Patient denies any urinary burning or frequency on 12/11/2023 patient is alert and oriented x 3. current vital temps 98.9, Hr 77, RR 18 blood pressure 147/74 with pulse ox 98%. Urine and growing MRSA. Patient remains on IV antibiotics per infectious disease. Patient denies chest pain or shortness of breath. Patient denies nausea vomiting or diarrhea. Patient denies any urinary burning or frequency On 12/12/2023 patient was seen and examined on the medical floor she is alert and oriented 3 in no apparent distress she is complaining of lower back pain and pain in the sacral area otherwise she denies any complaints there is no fever or chills no headache or dizziness no chest pain no shortness of breath no cough no nausea or vomiting no abdominal pain no diarrhea and no urinary sy mptoms Objective - Vital Signs Vital signs: Vital Signs Temp 98.6 F 12/12/23 14:00 Pulse 85 12/12/23 14:00 Resp 16 12/12/23 14:00 BP 117/65 12/12/23 14:00 Pulse Ox 98 12/12/23 14:00 FiO2 Intake & Output 12/11/23 12/12/23 12/12/23 18:59 06:59 18:59 Intake Total 100 Output Total 2150 -2049 Weight 74.843 kg Intake: Oral 100 Output: Urine 2150 Other: Voiding Method Indwelling Catheter Indwelling Catheter - Exam Head normocephalic Neck supple Lungs clear to auscultation bilaterally no wheezing or crackles Heart regular rate and rhythm S1-S2, no rub or gallop Abdomen is soft nontender nondistended positive bowel sounds no hepatosplenomegaly Extremities no edema Neuro alert and orientated to 1. Known dementia Decubitus ulcer noted coccyx - Labs CBC & Chem 7: 12/12/23 06:30 12/12/23 06:30 Labs: Abnormal Lab Results - Last 24 Hours (Table) 12/11/23 12/11/23 12/12/23 Range/Units 16:39 20:08 06:02 WBC (4.50-10.00) X 10*3/uL RBC (4.10-5.20) X 10*6/uL Hgb (12.0-15.0) g/dL Hct (37.2-46.3) % MCHC (32.0-37.0) g/dL RDW (11.5-14.5) % MPV (9.5-12.2) FL Lymphocytes # (Manual) (0.90-5.00) X 10*3/uL NRBC/100 WBC Diff (0.00-0.01) X 10*3/uL BUN/Creatinine Ratio (12.00-20.00) Ratio Glucose (70-110) mg/dL POC Glucose (mg/dL) 113 H 186 H 129 H (70-110) mg/dL Albumin (3.8-4.9) g/dL Globulin (1.6-3.3) g/dL Albumin/Globulin Ratio (1.60-3.17) Ratio 12/12/23 12/12/23 12/12/23 Range/Units 06:30 06:30 11:43 WBC 11.04 H (4.50-10.00) X 10*3/uL RBC 3.10 L (4.10-5.20) X 10*6/uL Hgb 9.1 L (12.0-15.0) g/dL Hct 29.2 L (37.2-46.3) % MCHC 31.2 L (32.0-37.0) g/dL RDW 14.8 H (11.5-14.5) % MPV 9.4 L (9.5-12.2) FL Lymphocytes # (Manual) 5.41 H (0.90-5.00) X 10*3/uL NRBC/100 WBC Diff 0.02 H (0.00-0.01) X 10*3/uL BUN/Creatinine Ratio 31.83 H (12.00-20.00) Ratio Glucose 124 H (70-110) mg/dL POC Glucose (mg/dL) 242 H (70-110) mg/dL Albumin 2.8 L (3.8-4.9) g/dL Globulin 5.2 H (1.6-3.3) g/dL Albumin/Globulin Ratio 0.54 L (1.60-3.17) Ratio Microbiology - Last 24 Hours (Table) 12/08/23 03:15 Anaerobic Culture - Final Buttock Assessment and Plan Assessment: 1. Increased weakness and falls 2. Stage III decubitus ulcer. Patient follows with wound care 3. History of diabetes mellitus type 2 4. History of dementia 5. History of anemia 6. History of lumbar discitis 7. History of essential hypertension DVT prophylaxis eliquis. GI prophylaxis Protonix Infectious disease Wound Care service is consulted Wound and urine cultures ordered Awaiting pharmacy verification of home medication Repeat labs ordered in a.m. PT OT and social work services consulted
[2023-12-12 20:31] LABS: Glucose,Whole Blood 185 mg/dL (70-110)
[2023-12-13 06:08] LABS: Glucose,Whole Blood 154 mg/dL (70-110)
[2023-12-13 08:53] LABS: Basophils % (A) 0 %; Eosinophils # (A) 0.3 k/uL (0-0.7); Eosinophils % (A) 4 %; HCT 28.8 % (34.0-46.0); HGB 9.1 gm/dL (11.4-16.0); Hypochromasia Slight; Lymphocytes % (A) 34 %; MCH 30.1 pg (25.0-35.0); MCHC 31.4 g/dL (31.0-37.0); MCV 95.6 fL (80.0-100.0); Mean Platelet Volume 8.2; Monocytes # (A) 0.4 k/uL (0-1.0); Monocytes % (A) 4 %; Neutrophils # (A) 4.9 k/uL (1.3-7.7); Neutrophils % (A) 56 %; Platelet Count 376 k/uL (150-450); RBC 3.02 m/uL (3.80-5.40); RDW 15.1 % (11.5-15.5); WBC 8.8 k/uL (3.8-10.6)
[2023-12-13 09:04] LABS: ALT 16 U/L (4-34); AST 24 U/L (14-36); African American GFR (CKD) >90 (>60 ml/min/1.73 sqM); Albumin 2.9 g/dL (3.5-5.0); Albumin/Globulin Ratio 0.5; Alkaline Phosphatase 128 U/L (38-126); Anion Gap 5 mmol/L; Blood Urea Nitrogen 21 mg/dL (7-17); Calcium 9.2 mg/dL (8.4-10.2); Carbon Dioxide 25 mmol/L (22-30); Chloride 107 mmol/L (98-107); Globulin 5.3 g/dL; Glucose 131 mg/dL (74-99); Non-African American GFR(CKD) >90 (>60 ml/min/1.73 sqM); Potassium 4.2 mmol/L (3.5-5.1); Sodium 137 mmol/L (137-145); Total Bilirubin 0.3 mg/dL (0.2-1.3); Total Protein 8.2 g/dL (6.3-8.2)
[2023-12-13] MEDS: VANCOMYCIN TROUGH DUE 1 EACH MISC MISCELLANE ONE (09:04)
[2023-12-13 09:09] LABS: African American GFR (CKD) >90 (>60 ml/min/1.73 sqM); Non-African American GFR(CKD) >90 (>60 ml/min/1.73 sqM)
--- NOTE | 2023-12-13 09:55 | P.PN ---
Subjective Progress Note Date: 12/13/23 this is a 78-year-old female patient who presented to the ER with concerns of increased weakness. Patient is a poor historian and there is currently no family at bedside most history is obtained from medical record patient has past medical history of dementia, CVA, diabetes mellitus, hypertension, osteo arthritis, wounds in which she follows with wound care and PT OT. Patient has decubitus ulcer. Anxiety, bipolar and depression. According to records patient has had increasing frequent falls and completing PT OT at home. Head and cervical CT completed showing no evidence of acute cervical spine fracture or traumatic malalignment. Generalized osteopenia. 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 Bilateral lower extremity venous Doppler completed showing negative for DVT. X- ray of sacrum and coccyx completed showing soft tissue gas posterior to the Sleep around related to decubitus ulcer no clear radiographic evidence of acute bony abnormality. Chest x-ray completed showing heart size is prominent increased lung volumes by basilar opacities left greater than right could be due to atelectasis or developing infiltrate. Current vital signs temp 98.2, heart rate 91, respiratory 18, blood pressure 124/62 with pulse ox 96% on room air. Influenza RSV COVID-19 negative UA showing small amount of leukocyte Estrace camryn l order urine culture. White blood cell 12.3 hemoglobin 9.7. At this time patient will be admitted infectious disease service is consulted wound care service is consulted. Urine and wound cultures ordered On 12/09/2023 patient was seen and examined on the medical floor she is alert and oriented 3 in no apparent distress she is still complaining of lower back pain and pain in the sacral area otherwise she denies any complaints there is no fever or chills no headache or dizziness no chest pain no shortness of breath no cough no nausea or vomiting no abdominal pain no diarrhea and no urinary symptoms On 12/10/2023 patients alert and oriented 3. Current vital signs temp 97.8, heart rate 78, respiratory rate 18, blood pressure 148/51 with pulse ox of 99% on room air. Patient remains on IV Maxipime. Infectious disease and orthopedic services following. Patient complains of generalized pain. Patient denies chest pain or shortness breath. Patient denies nausea vomiting or diarrhea. Patient denies any urinary burning or frequency on 12/11/2023 patient is alert and oriented x 3. current vital temps 98.9, Hr 77, RR 18 blood pressure 147/74 with pulse ox 98%. Urine and growing MRSA. Patient remains on IV antibiotics per infectious disease. Patient denies chest pain or shortness of breath. Patient denies nausea vomiting or diarrhea. Patient denies any urinary burning or frequency On 12/12/2023 patient was seen and examined on the medical floor she is alert and oriented 3 in no apparent distress she is complaining of lower back pain and pain in the sacral area otherwise she denies any complaints there is no fever or chills no headache or dizziness no chest pain no shortness of breath no cough no nausea or vomiting no abdominal pain no diarrhea and no urinary sym ptoms On 12/13/2023 patients alert and oriented 3 resting in bed. Patient maintained on IV vancomycin. Current vital signs temp 98.1, heart rate 85, respiratory rate 18, blood pressure 137/75 with pulse ox of 95% on room air. Wound VAC remains in place. Patient denies chest pain or shortness of breath. Patient denies nausea vomiting or diarrhea. Patient denies any urinary burning or frequency Objective - Vital Signs Vital signs: Vital Signs Temp 98.1 F 12/13/23 08:00 Pulse 85 12/13/23 08:00 Resp 18 12/13/23 08:00 BP 137/75 12/13/23 08:00 Pulse Ox 95 12/13/23 01:08 FiO2 Intake & Output 12/12/23 12/13/23 12/13/23 18:59 06:59 18:59 Intake Total 1000 Output Total 900 3000 Balance Weight 74.843 kg Intake: Intake, IV Titration 1000 Amount Sodium Chloride 0.9% 1, 750 000 ml @ 75 mls/hr IV . [id number] [facility] Rx#:[id number] Vancomycin 1,250 mg In 250 Sodium Chloride 0.9% 250 ml @ 125 mls/hr IVPB Q12H [facility] Rx#:[id number] Output: Urine 900 3000 Other: Voiding Method Indwelling Catheter - Exam Head normocephalic Neck supple Lungs clear to auscultation bilaterally no wheezing or crackles Heart regular rate and rhythm S1-S2, no rub or gallop Abdomen is soft nontender nondistended positive bowel sounds no hepatosplenomegaly Extremities no edema Neuro alert and orientated to 1. Known dementia Decubitus ulcer noted coccyx - Labs CBC & Chem 7: 12/13/23 07:46 12/13/23 07:46 Labs: Abnormal Lab Results - Last 24 Hours (Table) 12/12/23 12/12/23 12/12/23 Range/Units 06:30 06:30 11:43 WBC 11.04 H (4.50-10.00) X 10*3/uL RBC 3.10 L (4.10-5.20) X 10*6/uL Hgb 9.1 L (12.0-15.0) g/dL Hct 29.2 L (37.2-46.3) % MCHC 31.2 L (32.0-37.0) g/dL RDW 14.8 H (11.5-14.5) % MPV 9.4 L (9.5-12.2) FL Lymphocytes # (Manual) 5.41 H (0.90-5.00) X 10*3/uL NRBC/100 WBC Diff 0.02 H (0.00-0.01) X 10*3/uL BUN (7-17) mg/dL Creatinine (0.52-1.04) mg/dL BUN/Creatinine Ratio 31.83 H (12.00-20.00) Ratio Glucose 124 H (70-110) mg/dL POC Glucose (mg/dL) 242 H (70-110) mg/dL Alkaline Phosphatase (38-126) U/L Albumin 2.8 L (3.8-4.9) g/dL Globulin 5.2 H (1.6-3.3) g/dL Albumin/Globulin Ratio 0.54 L (1.60-3.17) Ratio 12/12/23 12/12/23 12/13/23 Range/Units 16:23 20:29 06:06 WBC (4.50-10.00) X 10*3/uL RBC (4.10-5.20) X 10*6/uL Hgb (12.0-15.0) g/dL Hct (37.2-46.3) % MCHC (32.0-37.0) g/dL RDW (11.5-14.5) % MPV (9.5-12.2) FL Lymphocytes # (Manual) (0.90-5.00) X 10*3/uL NRBC/100 WBC Diff (0.00-0.01) X 10*3/uL BUN (7-17) mg/dL Creatinine (0.52-1.04) mg/dL BUN/Creatinine Ratio (12.00-20.00) Ratio Glucose (70-110) mg/dL POC Glucose (mg/dL) 129 H 185 H 154 H (70-110) mg/dL Alkaline Phosphatase (38-126) U/L Albumin (3.8-4.9) g/dL Globulin (1.6-3.3) g/dL Albumin/Globulin Ratio (1.60-3.17) Ratio 12/13/23 12/13/23 12/13/23 Range/Units 07:46 07:46 07:46 WBC (4.50-10.00) X 10*3/uL RBC 3.02 L (4.10-5.20) X 10*6/uL Hgb 9.1 L (12.0-15.0) g/dL Hct 28.8 L (37.2-46.3) % MCHC (32.0-37.0) g/dL RDW (11.5-14.5) % MPV (9.5-12.2) FL Lymphocytes # (Manual) (0.90-5.00) X 10*3/uL NRBC/100 WBC Diff (0.00-0.01) X 10*3/uL BUN 21 H (7-17) mg/dL Creatinine 0.46 L 0.47 L (0.52-1.04) mg/dL BUN/Creatinine Ratio (12.00-20.00) Ratio Glucose 131 H (70-110) mg/dL POC Glucose (mg/dL) (70-110) mg/dL Alkaline Phosphatase 128 H (38-126) U/L Albumin 2.9 L (3.8-4.9) g/dL Globulin (1.6-3.3) g/dL Albumin/Globulin Ratio (1.60-3.17) Ratio Microbiology - Last 24 Hours (Table) 12/11/23 12:17 Blood Culture - Preliminary Blood 12/08/23 03:15 Anaerobic Culture - Final Buttock Assessment and Plan Assessment: 1. Increased weakness and falls 2. Stage III decubitus ulcer. Patient follows with wound care 3. History of diabetes mellitus type 2 4. History of dementia 5. History of anemia 6. History of lumbar discitis 7. History of essential hypertension DVT prophylaxis eliquis. GI prophylaxis Protonix Infectious disease Wound Care service is consulted Wound and urine cultures ordered Awaiting pharmacy verification of home medication Repeat labs ordered in a.m. PT OT and social work services consulted
[2023-12-13 10:26] LABS: C Reactive Protein 1.4 mg/dL (<1.0)
[2023-12-13 11:49] LABS: Glucose,Whole Blood 145 mg/dL (70-110)
--- NOTE | 2023-12-13 12:26 | P.PN ---
Subjective Progress Note Date: 12/13/23 Principal diagnosis: Reason for follow-up is possible UTI and sacral pressure ulcer Patient is a 78-year-old -[place] female with a past medical history significant for diabetes mellitus hypertension osteoarthritis CVA TIA patient also have a history of infected sacral pressure ulcer with underlying osteomyelitis for the patient has completed extensive course of IV and by therapy currently local wound care with a wound VAC patient has been brought into the hospital for evaluation of fatigue and weakness did have a positive UA concerning for possible UTI. On today's visit that is 12/13/2023,the patient remains to be afebrile the patient is breathing comfortably on room air, the patient is slightly sleepy but arousable responded to her name however did not answer any question no vomiting diarrhea or any other changes reported. Patient did have white count of 8.8, creatinine 0.47 CRP is 1.4 sed rate is pending blood cultures currently pending Objective - Vital Signs Vital signs: Vital Signs Temp 98.1 F 12/13/23 08:00 Pulse 85 12/13/23 08:00 Resp 18 12/13/23 08:00 BP 137/75 12/13/23 08:00 Pulse Ox 95 12/13/23 01:08 FiO2 Intake & Output 12/12/23 12/13/23 12/13/23 18:59 06:59 18:59 Intake Total 1000 Output Total 900 3000 Balance -900 -2000 Weight 74.843 kg Intake: Intake, IV Titration 1000 Amount Sodium Chloride 0.9% 1, 750 000 ml @ 75 mls/hr IV . [id number] [facility] Rx#:[id number] Vancomycin 1,250 mg In 250 Sodium Chloride 0.9% 250 ml @ 125 mls/hr IVPB Q12H [facility] Rx#:[id number] Output: Urine 900 3000 Other: Voiding Method Indwelling Catheter - Exam GENERAL DESCRIPTION: An elderly female lying in bed in no distress RESPIRATORY SYSTEM: Unlabored breathing , decreased breath sounds at bases HEART: S1 S2 regular rate and rhythm , ABDOMEN: Soft , no tenderness Sacral wound, wound VAC was removed wound base looks clean with no slough tissue there is no surrounding cellulitis or any foul-smelling drainage EXTREMITIES: No edema feet - Labs CBC & Chem 7: 12/13/23 07:46 12/13/23 07:46 Labs: Abnormal Lab Results - Last 24 Hours (Table) 12/12/23 12/12/23 12/13/23 Range/Units 16:23 20:29 06:06 RBC (3.80-5.40) m/uL Hgb (11.4-16.0) gm/dL Hct (34.0-46.0) % BUN (7-17) mg/dL Creatinine (0.52-1.04) mg/dL Glucose (74-99) mg/dL POC Glucose (mg/dL) 129 H 185 H 154 H (70-110) mg/dL Alkaline Phosphatase (38-126) U/L C-Reactive Protein (<1.0) mg/dL Albumin (3.5-5.0) g/dL 12/13/23 12/13/23 12/13/23 Range/Units 07:46 07:46 07:46 RBC 3.02 L (3.80-5.40) m/uL Hgb 9.1 L (11.4-16.0) gm/dL Hct 28.8 L (34.0-46.0) % BUN 21 H (7-17) mg/dL Creatinine 0.46 L 0.47 L (0.52-1.04) mg/dL Glucose 131 H (74-99) mg/dL POC Glucose (mg/dL) (70-110) mg/dL Alkaline Phosphatase 128 H (38-126) U/L C-Reactive Protein 1.4 H (<1.0) mg/dL Albumin 2.9 L (3.5-5.0) g/dL 12/13/23 Range/Units 11:48 RBC (3.80-5.40) m/uL Hgb (11.4-16.0) gm/dL Hct (34.0-46.0) % BUN (7-17) mg/dL Creatinine (0.52-1.04) mg/dL Glucose (74-99) mg/dL POC Glucose (mg/dL) 145 H (70-110) mg/dL Alkaline Phosphatase (38-126) U/L C-Reactive Protein (<1.0) mg/dL Albumin (3.5-5.0) g/dL Microbiology - Last 24 Hours (Table) 12/11/23 12:17 Blood Culture - Preliminary Blood 12/08/23 03:15 Anaerobic Culture - Final Buttock Assessment and Plan (1) Stage IV pressure ulcer of sacral region Current Visit: No Status: Acute Code(s): L89.154 - PRESSURE ULCER OF SACRAL REGION, STAGE 4 SNOMED Code(s): 38832259905552 (2) Urinary tract infection Current Visit: No Status: Acute Code(s): N39.0 - URINARY TRACT INFECTION, SITE NOT SPECIFIED SNOMED Code(s): 95858677 (3) MRSA (methicillin resistant staph aureus) culture positive Current Visit: Yes Status: Acute Code(s): Z22.322 - CARRIER OR SUSPECTED CARRIER OF METHICILLIN RESIS STAPH SNOMED Code(s): 085008635 Plan: 1-patient with a stage IV sacral pressure ulcer with the patient has for couple of months now and did have a previous episode of osteomyelitis for the patient received adequate antibiotic therapy, patient did have a superficial culture from the sacral wound to the right MRSA wound was examined with the patient nurse wound base looks clean there is no surrounding redness more likely representing colonization rather than infection as the patient shows improvement without getting any treatment for vancomycin, hence we will hold on adding any due to be directed over this positive culture which grew more likely colonization 2-patient did have positive UA and a possible component of UTI, urine has been growing MRSA, patient to continue with vancomycin we are currently waiting for the blood culture and will also sed rate to be finalized that will decide her discharge antibiotics Dictation was produced using [employer] dictation software. please excuse any grammatical, word or spelling errors. Time with Patient: Less than 30
[2023-12-13 16:48] LABS: Glucose,Whole Blood 148 mg/dL (70-110)
[2023-12-13 20:22] LABS: Glucose,Whole Blood 115 mg/dL (70-110)
[2023-12-14] MEDS: HYDROmorphone 0.5 MG/0.5 ML SYRINGE IVP PRN (02:47)
[2023-12-14 05:12] LABS: Erythrocyte Sedimentation Rate 50 mm/Hr (0-30)
[2023-12-14 06:13] LABS: Glucose,Whole Blood 132 mg/dL (70-110)
--- NOTE | 2023-12-14 07:59 | P.PN ---
Subjective Progress Note Date: 12/14/23 this is a 78-year-old female patient who presented to the ER with concerns of increased weakness. Patient is a poor historian and there is currently no family at bedside most history is obtained from medical record patient has past medical history of dementia, CVA, diabetes mellitus, hypertension, oste oarthritis, wounds in which she follows with wound care and PT OT. Patient has decubitus ulcer. Anxiety, bipolar and depression. According to records patient has had increasing frequent falls and completing PT OT at home. Head and cervical CT completed showing no evidence of acute cervical spine fracture or traumatic malalignment. Generalized osteopenia. 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 Bilateral lower extremity venous Doppler completed showing negative for DVT. X- ray of sacrum and coccyx completed showing soft tissue gas posterior to the Sleep around related to decubitus ulcer no clear radiographic evidence of acute bony abnormality. Chest x-ray completed showing heart size is prominent increased lung volumes by basilar opacities left greater than right could be due to atelectasis or developing infiltrate. Current vital signs temp 98.2, heart rate 91, respiratory 18, blood pressure 124/62 with pulse ox 96% on room air. Influenza RSV COVID-19 negative UA showing small amount of leukocyte Estrace wi ll order urine culture. White blood cell 12.3 hemoglobin 9.7. At this time patient will be admitted infectious disease service is consulted wound care service is consulted. Urine and wound cultures ordered On 12/09/2023 patient was seen and examined on the medical floor she is alert and oriented 3 in no apparent distress she is still complaining of lower back pain and pain in the sacral area otherwise she denies any complaints there is no fever or chills no headache or dizziness no chest pain no shortness of breath no cough no nausea or vomiting no abdominal pain no diarrhea and no urinary symptoms On 12/10/2023 patients alert and oriented 3. Current vital signs temp 97.8, heart rate 78, respiratory rate 18, blood pressure 148/51 with pulse ox of 99% on room air. Patient remains on IV Maxipime. Infectious disease and orthopedic services following. Patient complains of generalized pain. Patient denies chest pain or shortness breath. Patient denies nausea vomiting or diarrhea. Patient denies any urinary burning or frequency on 12/11/2023 patient is alert and oriented x 3. current vital temps 98.9, Hr 77, RR 18 blood pressure 147/74 with pulse ox 98%. Urine and growing MRSA. Patient remains on IV antibiotics per infectious disease. Patient denies chest pain or shortness of breath. Patient denies nausea vomiting or diarrhea. Patient denies any urinary burning or frequency On 12/12/2023 patient was seen and examined on the medical floor she is alert and oriented 3 in no apparent distress she is complaining of lower back pain and pain in the sacral area otherwise she denies any complaints there is no fever or chills no headache or dizziness no chest pain no shortness of breath no cough no nausea or vomiting no abdominal pain no diarrhea and no urinary sy mptoms On 12/13/2023 patients alert and oriented 3 resting in bed. Patient maintained on IV vancomycin. Current vital signs temp 98.1, heart rate 85, respiratory rate 18, blood pressure 137/75 with pulse ox of 95% on room air. Wound VAC remains in place. Patient denies chest pain or shortness of breath. Patient denies nausea vomiting or diarrhea. Patient denies any urinary burning or frequ ency On 12/14/2023 patients alert and oriented 3 sitting up in chair eating breakfast. Patient remains on IV vancomycin. Current vital signs temp 98.1, heart rate 90, respiratory rate 14, blood pressure 144/83 with a pulse ox 95% on room air. Patient denies chest pain or shortness of breath. Patient denies nausea vomiting or diarrhea. Patient denies any urinary burning or frequency. Awaiting infectious disease final recommendations for discharge. Social work services following for discharge planning Objective - Vital Signs Vital signs: Vital Signs Temp 99.1 F 12/14/23 02:00 Pulse 83 12/14/23 02:00 Resp 16 12/14/23 02:00 BP 144/83 12/14/23 02:00 Pulse Ox 94 L 12/14/23 02:00 FiO2 Intake & Output 12/13/23 12/14/23 12/14/23 18:59 06:59 18:59 Intake Total 1150 Output Total 2700 Balance -1550 Intake: Intake, IV Titration 1150 Amount Sodium Chloride 0.9% 1, 900 000 ml @ 75 mls/hr IV . [id number] [facility] Rx#:[id number] Vancomycin 1,250 mg In 250 Sodium Chloride 0.9% 250 ml @ 125 mls/hr IVPB Q12H [facility] Rx#:[id number] Output: Urine 2700 Other: Voiding Method Bedside Commode Diaper # Voids 2 - Exam Head normocephalic Neck supple Lungs clear to auscultation bilaterally no wheezing or crackles Heart regular rate and rhythm S1-S2, no rub or gallop Abdomen is soft nontender nondistended positive bowel sounds no hepatosplenomegaly Extremities no edema Neuro alert and orientated to 1. Known dementia Decubitus ulcer noted coccyx - Labs CBC & Chem 7: 12/13/23 07:46 12/13/23 07:46 Labs: Abnormal Lab Results - Last 24 Hours (Table) 12/13/23 12/13/23 12/13/23 Range/Units 07:46 07:46 07:46 RBC 3.02 L (3.80-5.40) m/uL Hgb 9.1 L (11.4-16.0) gm/dL Hct 28.8 L (34.0-46.0) % ESR 50 H (0-30) mm/Hr BUN 21 H (7-17) mg/dL Creatinine 0.46 L 0.47 L (0.52-1.04) mg/dL Glucose 131 H (74-99) mg/dL POC Glucose (mg/dL) (70-110) mg/dL Alkaline Phosphatase 128 H (38-126) U/L C-Reactive Protein 1.4 H (<1.0) mg/dL Albumin 2.9 L (3.5-5.0) g/dL 12/13/23 12/13/23 12/13/23 Range/Units 11:48 16:46 20:20 RBC (3.80-5.40) m/uL Hgb (11.4-16.0) gm/dL Hct (34.0-46.0) % ESR (0-30) mm/Hr BUN (7-17) mg/dL Creatinine (0.52-1.04) mg/dL Glucose (74-99) mg/dL POC Glucose (mg/dL) 145 H 148 H 115 H (70-110) mg/dL Alkaline Phosphatase (38-126) U/L C-Reactive Protein (<1.0) mg/dL Albumin (3.5-5.0) g/dL 12/14/23 Range/Units 06:11 RBC (3.80-5.40) m/uL Hgb (11.4-16.0) gm/dL Hct (34.0-46.0) % ESR (0-30) mm/Hr BUN (7-17) mg/dL Creatinine (0.52-1.04) mg/dL Glucose (74-99) mg/dL POC Glucose (mg/dL) 132 H (70-110) mg/dL Alkaline Phosphatase (38-126) U/L C-Reactive Protein (<1.0) mg/dL Albumin (3.5-5.0) g/dL Microbiology - Last 24 Hours (Table) 12/11/23 12:17 Blood Culture - Preliminary Blood Assessment and Plan Assessment: 1. Increased weakness and falls 2. Stage III decubitus ulcer. Patient follows with wound care 3. History of diabetes mellitus type 2 4. History of dementia 5. History of anemia 6. History of lumbar discitis 7. History of essential hypertension DVT prophylaxis eliquis. GI prophylaxis Protonix Infectious disease Wound Care service is consulted Wound and urine cultures ordered Awaiting pharmacy verification of home medication Repeat labs ordered in a.m. PT OT and social work services consulted
[2023-12-14 08:04] LABS: African American GFR (CKD) >90 (>60 ml/min/1.73 sqM); Non-African American GFR(CKD) >90 (>60 ml/min/1.73 sqM)
[2023-12-14 11:40] LABS: Glucose,Whole Blood 255 mg/dL (70-110)
--- NOTE | 2023-12-14 15:51 | P.PN ---
Subjective Progress Note Date: 12/14/23 Principal diagnosis: Reason for follow-up is possible UTI and sacral pressure ulcer Patient is a 78-year-old -[place] female with a past medical history significant for diabetes mellitus hypertension osteoarthritis CVA TIA patient also have a history of infected sacral pressure ulcer with underlying osteomyelitis for the patient has completed extensive course of IV and by therapy currently local wound care with a wound VAC patient has been brought into the hospital for evaluation of fatigue and weakness did have a positive UA concerning for possible UTI. On today's visit that is 12/14/2023,the patient remains to be afebrile, patient is on room air not requiring supplemental oxygen and denies any shortness of breath no chest pain or cough.Patient denies having any nausea or vomiting, no abdominal pain and no diarrhea has been reported. Patient did have a sed rate of 50 creatinine 0.43 blood cultures so far pending Objective - Vital Signs Vital signs: Vital Signs Temp 97.7 F 12/14/23 06:57 Pulse 90 12/14/23 06:57 Resp 17 12/14/23 06:57 BP 153/68 12/14/23 06:57 Pulse Ox 96 12/14/23 06:57 FiO2 Intake & Output 12/13/23 12/14/23 12/14/23 18:59 06:59 18:59 Intake Total 1150 Output Total 2700 Balance -1550 Intake: Intake, IV Titration 1150 Amount Sodium Chloride 0.9% 1, 900 000 ml @ 75 mls/hr IV . [id number] [facility] Rx#:[id number] Vancomycin 1,250 mg In 250 Sodium Chloride 0.9% 250 ml @ 125 mls/hr IVPB Q12H [facility] Rx#:[id number] Output: Urine 2700 Other: Voiding Method Bedside Commode Bedside Commode Diaper Diaper External Catheter # Voids 2 - Exam GENERAL DESCRIPTION: An elderly female lying in bed in no distress RESPIRATORY SYSTEM: Unlabored breathing , decreased breath sounds at bases HEART: S1 S2 regular rate and rhythm , ABDOMEN: Soft , no tenderness Sacral wound, wound VAC was removed wound base looks clean with no slough tissue there is no surrounding cellulitis or any foul-smelling drainage EXTREMITIES: No edema feet - Labs CBC & Chem 7: 12/13/23 07:46 12/14/23 06:51 Labs: Abnormal Lab Results - Last 24 Hours (Table) 12/13/23 12/13/23 12/13/23 Range/Units 07:46 16:46 20:20 ESR 50 H (0-30) mm/Hr Creatinine (0.52-1.04) mg/dL POC Glucose (mg/dL) 148 H 115 H (70-110) mg/dL 12/14/23 12/14/23 12/14/23 Range/Units 06:11 06:51 11:39 ESR (0-30) mm/Hr Creatinine 0.43 L (0.52-1.04) mg/dL POC Glucose (mg/dL) 132 H 255 H (70-110) mg/dL Microbiology - Last 24 Hours (Table) 12/11/23 12:17 Blood Culture - Preliminary Blood Assessment and Plan (1) Stage IV pressure ulcer of sacral region Current Visit: No Status: Acute Code(s): L89.154 - PRESSURE ULCER OF SACRAL REGION, STAGE 4 SNOMED Code(s): 98672250029642 (2) Urinary tract infection Current Visit: No Status: Acute Code(s): N39.0 - URINARY TRACT INFECTION, SITE NOT SPECIFIED SNOMED Code(s): 16744109 (3) MRSA (methicillin resistant staph aureus) culture positive Current Visit: Yes Status: Acute Code(s): Z22.322 - CARRIER OR SUSPECTED CARRIER OF METHICILLIN RESIS STAPH SNOMED Code(s): 182597744 Plan: 1-patient with a stage IV sacral pressure ulcer with the patient has for couple of months now and did have a previous episode of osteomyelitis for the patient received adequate antibiotic therapy, patient did have a superficial culture from the sacral wound to the right MRSA wound was examined with the patient nurse wound base looks clean there is no surrounding redness more likely representing colonization rather than infection as the patient shows improvement without getting any treatment for vancomycin, hence we will hold on adding any due to be directed over this positive culture which grew more likely colonization 2-patient did have positive UA and a possible component of UTI, urine has been growing MRSA, 3-patient did have elevated sed rate blood culture so far negative keeping in mind her complicated course of recommended PICC line and short course of IV vancomycin on discharge Dictation was produced using [employer] dictation software. please excuse any grammatical, word or spelling errors. Time with Patient: Less than 30
[2023-12-14 16:48] LABS: Glucose,Whole Blood 102 mg/dL (70-110)
[2023-12-14 20:32] LABS: Glucose,Whole Blood 188 mg/dL (70-110)
[2023-12-15 06:01] LABS: Glucose,Whole Blood 131 mg/dL (70-110)
[2023-12-15 08:35] LABS: Basophils # (A) 0.1 k/uL (0-0.2); Basophils % (A) 0 %; Eosinophils # (A) 0.3 k/uL (0-0.7); Eosinophils % (A) 3 %; HCT 31.5 % (34.0-46.0); HGB 9.9 gm/dL (11.4-16.0); Hypochromasia Marked; Lymphocytes # (A) 3.2 k/uL (1.0-4.8); Lymphocytes % (A) 29 %; MCH 30.1 pg (25.0-35.0); MCHC 31.3 g/dL (31.0-37.0); MCV 96.1 fL (80.0-100.0); Mean Platelet Volume 7.5; Monocytes # (A) 0.4 k/uL (0-1.0); Monocytes % (A) 4 %; Neutrophils # (A) 6.7 k/uL (1.3-7.7); Neutrophils % (A) 61 %; Platelet Count 437 k/uL (150-450); RBC 3.28 m/uL (3.80-5.40); RDW 15.1 % (11.5-15.5); WBC 10.9 k/uL (3.8-10.6)
--- NOTE | 2023-12-15 08:39 | P.PN ---
Subjective Progress Note Date: 12/15/23 this is a 78-year-old female patient who presented to the ER with concerns of increased weakness. Patient is a poor historian and there is currently no family at bedside most history is obtained from medical record patient has past medical history of dementia, CVA, diabetes mellitus, hypertension, oste oarthritis, wounds in which she follows with wound care and PT OT. Patient has decubitus ulcer. Anxiety, bipolar and depression. According to records patient has had increasing frequent falls and completing PT OT at home. Head and cervical CT completed showing no evidence of acute cervical spine fracture or traumatic malalignment. Generalized osteopenia. 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 Bilateral lower extremity venous Doppler completed showing negative for DVT. X- ray of sacrum and coccyx completed showing soft tissue gas posterior to the Sleep around related to decubitus ulcer no clear radiographic evidence of acute bony abnormality. Chest x-ray completed showing heart size is prominent increased lung volumes by basilar opacities left greater than right could be due to atelectasis or developing infiltrate. Current vital signs temp 98.2, heart rate 91, respiratory 18, blood pressure 124/62 with pulse ox 96% on room air. Influenza RSV COVID-19 negative UA showing small amount of leukocyte Estrace wi ll order urine culture. White blood cell 12.3 hemoglobin 9.7. At this time patient will be admitted infectious disease service is consulted wound care service is consulted. Urine and wound cultures ordered On 12/09/2023 patient was seen and examined on the medical floor she is alert and oriented 3 in no apparent distress she is still complaining of lower back pain and pain in the sacral area otherwise she denies any complaints there is no fever or chills no headache or dizziness no chest pain no shortness of breath no cough no nausea or vomiting no abdominal pain no diarrhea and no urinary symptoms On 12/10/2023 patients alert and oriented 3. Current vital signs temp 97.8, heart rate 78, respiratory rate 18, blood pressure 148/51 with pulse ox of 99% on room air. Patient remains on IV Maxipime. Infectious disease and orthopedic services following. Patient complains of generalized pain. Patient denies chest pain or shortness breath. Patient denies nausea vomiting or diarrhea. Patient denies any urinary burning or frequency on 12/11/2023 patient is alert and oriented x 3. current vital temps 98.9, Hr 77, RR 18 blood pressure 147/74 with pulse ox 98%. Urine and growing MRSA. Patient remains on IV antibiotics per infectious disease. Patient denies chest pain or shortness of breath. Patient denies nausea vomiting or diarrhea. Patient denies any urinary burning or frequency On 12/12/2023 patient was seen and examined on the medical floor she is alert and oriented 3 in no apparent distress she is complaining of lower back pain and pain in the sacral area otherwise she denies any complaints there is no fever or chills no headache or dizziness no chest pain no shortness of breath no cough no nausea or vomiting no abdominal pain no diarrhea and no urinary sy mptoms On 12/13/2023 patients alert and oriented 3 resting in bed. Patient maintained on IV vancomycin. Current vital signs temp 98.1, heart rate 85, respiratory rate 18, blood pressure 137/75 with pulse ox of 95% on room air. Wound VAC remains in place. Patient denies chest pain or shortness of breath. Patient denies nausea vomiting or diarrhea. Patient denies any urinary burning or frequ ency On 12/14/2023 patients alert and oriented 3 sitting up in chair eating breakfast. Patient remains on IV vancomycin. Current vital signs temp 98.1, heart rate 90, respiratory rate 14, blood pressure 144/83 with a pulse ox 95% on room air. Patient denies chest pain or shortness of breath. Patient denies nausea vomiting or diarrhea. Patient denies any urinary burning or frequency. Awaiting infectious disease final recommendations for discharge. Social work services following for discharge planning On 12/15/2023 patient was seen and examined on the medical floor she is alert and oriented 3 in no distress she is complaining of pain in the sacral area otherwise she denies any complaints there is no fever or chills no headache or dizziness no chest pain no shortness of breath no cough no nausea or vomiting no abdominal pain no diarrhea and no urinary symptoms. Temperature is 97.4 pulse 92 respiration 16 blood pressure 152/72 pulse ox 98% on room air white blood count is 10.9 hemoglobin 9.9 platelet count 437 Objective - Vital Signs Vital signs: Vital Signs Temp 97.4 F L 12/15/23 07:35 Pulse 92 12/15/23 07:35 Resp 16 12/15/23 07:35 BP 152/72 12/15/23 07:35 Pulse Ox 98 12/15/23 07:35 FiO2 Intake & Output 12/14/23 12/15/23 12/15/23 18:59 06:59 18:59 Intake Total 1150 Output Total 400 Balance 750 Intake: Intake, IV Titration 1150 Amount Sodium Chloride 0.9% 1, 900 000 ml @ 75 mls/hr IV . [id number] [facility] Rx#:[id number] Vancomycin 1,250 mg In 250 Sodium Chloride 0.9% 250 ml @ 125 mls/hr IVPB Q12H [facility] Rx#:[id number] Output: Urine 400 Other: Voiding Method Bedside Commode Bedside Commode Diaper Diaper External Catheter External Catheter # Voids 2 4 # Bowel Movements 1 - Exam Head normocephalic Neck supple Lungs clear to auscultation bilaterally no wheezing or crackles Heart regular rate and rhythm S1-S2, no rub or gallop Abdomen is soft nontender nondistended positive bowel sounds no hepatosplenomegaly Extremities no edema Neuro alert and orientated to 1. Known dementia Decubitus ulcer noted coccyx - Labs CBC & Chem 7: 12/15/23 08:01 12/14/23 06:51 Labs: Abnormal Lab Results - Last 24 Hours (Table) 12/14/23 12/14/23 12/15/23 Range/Units 11:39 20:31 06:00 POC Glucose (mg/dL) 255 H 188 H 131 H (70-110) mg/dL Microbiology - Last 24 Hours (Table) 12/11/23 12:17 Blood Culture - Preliminary Blood Assessment and Plan Assessment: 1. Increased weakness and falls 2. Stage III decubitus ulcer. Patient follows with wound care 3. History of diabetes mellitus type 2 4. History of dementia 5. History of anemia 6. History of lumbar discitis 7. History of essential hypertension DVT prophylaxis eliquis. GI prophylaxis Protonix Infectious disease Wound Care service is consulted Wound and urine cultures ordered Awaiting pharmacy verification of home medication Repeat labs ordered in a.m. PT OT and social work services consulted
[2023-12-15 08:57] LABS: ALT 17 U/L (4-34); AST 35 U/L (14-36); African American GFR (CKD) >90 (>60 ml/min/1.73 sqM); Albumin 3.4 g/dL (3.5-5.0); Albumin/Globulin Ratio 0.6; Alkaline Phosphatase 137 U/L (38-126); Anion Gap 8 mmol/L; Blood Urea Nitrogen 27 mg/dL (7-17); Calcium 9.8 mg/dL (8.4-10.2); Carbon Dioxide 21 mmol/L (22-30); Chloride 111 mmol/L (98-107); Globulin 5.7 g/dL; Glucose 131 mg/dL (74-99); Non-African American GFR(CKD) 85 (>60 ml/min/1.73 sqM); Sodium 140 mmol/L (137-145); Total Bilirubin 0.5 mg/dL (0.2-1.3); Total Protein 9.1 g/dL (6.3-8.2)
[2023-12-15 08:58] LABS: Potassium 4.3 mmol/L (3.5-5.1)
[2023-12-15] MEDS: VANCOMYCIN TROUGH DUE 1 EACH MISC MISCELLANE ONE (09:00)
[2023-12-15 11:19] LABS: Glucose,Whole Blood 147 mg/dL (70-110)
--- NOTE | 2023-12-15 15:04 | P.PN ---
Subjective Progress Note Date: 12/15/23 Principal diagnosis: Reason for follow-up is possible UTI and sacral pressure ulcer Patient is a 78-year-old -[place] female with a past medical history significant for diabetes mellitus hypertension osteoarthritis CVA TIA patient also have a history of infected sacral pressure ulcer with underlying osteomyelitis for the patient has completed extensive course of IV and by therapy currently local wound care with a wound VAC patient has been brought into the hospital for evaluation of fatigue and weakness did have a positive UA concerning for possible UTI. On today's visit that is 12/15/2023, the patient continues to be afebrile, the patient is on room air and breathing comfortably, the Pt denies having any chest pain or cough, the patient denies having any abdominal pain no vomiting or any diarrhea mention feeling better. Patient white count is 10.9, creatinine 0.67 Vanco trough is 25.3 blood culture negative Objective - Vital Signs Vital signs: Vital Signs Temp 97.8 F 12/15/23 12:30 Pulse 88 12/15/23 12:30 Resp 17 12/15/23 12:30 BP 141/79 12/15/23 12:30 Pulse Ox 98 12/15/23 12:30 FiO2 Intake & Output 12/14/23 12/15/23 12/15/23 18:59 06:59 18:59 Intake Total 1150 Output Total 400 Balance 750 Intake: Intake, IV Titration 1150 Amount Sodium Chloride 0.9% 1, 900 000 ml @ 75 mls/hr IV . [id number] [facility]UREN Rx#:[id number] Vancomycin 1,250 mg In 250 Sodium Chloride 0.9% 250 ml @ 125 mls/hr IVPB Q12H [facility]UREN Rx#:[id number] Output: Urine 400 Other: Voiding Method Bedside Commode Bedside Commode Bedside Commode Diaper Diaper Diaper External Catheter External Catheter External Catheter # Voids 2 4 # Bowel Movements 1 - Exam GENERAL DESCRIPTION: An elderly female lying in bed in no distress RESPIRATORY SYSTEM: Unlabored breathing , decreased breath sounds at bases HEART: S1 S2 regular rate and rhythm , ABDOMEN: Soft , no tenderness Sacral wound, wound VAC was removed wound base looks clean with no slough tissue there is no surrounding cellulitis or any foul-smelling drainage EXTREMITIES: No edema feet - Labs CBC & Chem 7: 12/15/23 08:01 12/15/23 08:01 Labs: Abnormal Lab Results - Last 24 Hours (Table) 12/14/23 12/15/23 12/15/23 Range/Units 20:31 06:00 08:01 WBC (3.8-10.6) k/uL RBC (3.80-5.40) m/uL Hgb (11.4-16.0) gm/dL Hct (34.0-46.0) % Chloride 111 H (98-107) mmol/L Carbon Dioxide 21 L (22-30) mmol/L BUN 27 H (7-17) mg/dL Glucose 131 H (74-99) mg/dL POC Glucose (mg/dL) 188 H 131 H (70-110) mg/dL Alkaline Phosphatase 137 H (38-126) U/L Total Protein 9.1 H (6.3-8.2) g/dL Albumin 3.4 L (3.5-5.0) g/dL 12/15/23 12/15/23 Range/Units 08:01 11:17 WBC 10.9 H (3.8-10.6) k/uL RBC 3.28 L (3.80-5.40) m/uL Hgb 9.9 L (11.4-16.0) gm/dL Hct 31.5 L (34.0-46.0) % Chloride (98-107) mmol/L Carbon Dioxide (22-30) mmol/L BUN (7-17) mg/dL Glucose (74-99) mg/dL POC Glucose (mg/dL) 147 H (70-110) mg/dL Alkaline Phosphatase (38-126) U/L Total Protein (6.3-8.2) g/dL Albumin (3.5-5.0) g/dL Microbiology - Last 24 Hours (Table) 12/11/23 12:17 Blood Culture - Preliminary Blood Assessment and Plan (1) Stage IV pressure ulcer of sacral region Current Visit: No Status: Acute Code(s): L89.154 - PRESSURE ULCER OF SACRAL REGION, STAGE 4 SNOMED Code(s): 76929642581990 (2) Urinary tract infection Current Visit: No Status: Acute Code(s): N39.0 - URINARY TRACT INFECTION, SITE NOT SPECIFIED SNOMED Code(s): 64394814 (3) MRSA (methicillin resistant staph aureus) culture positive Current Visit: Yes Status: Acute Code(s): Z22.322 - CARRIER OR SUSPECTED CARRIER OF METHICILLIN RESIS STAPH SNOMED Code(s): 169047765 Plan: 1-patient with a stage IV sacral pressure ulcer with the patient has for couple of months now and did have a previous episode of osteomyelitis for the patient received adequate antibiotic therapy, patient did have a superficial culture from the sacral wound to the right MRSA wound was examined with the patient nurse wound base looks clean there is no surrounding redness more likely representing colonization rather than infection as the patient shows improvement without getting any treatment for vancomycin, hence we will hold on adding any due to be directed over this positive culture which grew more likely colonization 2-patient did have positive UA and a possible component of UTI, urine has been growing MRSA, 3-patient did have elevated sed rate blood culture so far negative keeping in mind her complicated course we will order PICC line for short course of IV vancomycin on discharge dosing to be adjusted down to keep the trough around 15 Dictation was produced using [employer] dictation software. please excuse any grammatical, word or spelling errors. Time with Patient: Less than 30
[2023-12-15 16:49] LABS: Glucose,Whole Blood 152 mg/dL (70-110)
[2023-12-15 20:07] LABS: Glucose,Whole Blood 131 mg/dL (70-110)
[2023-12-16] MEDS: VANCOMYCIN 1,250 MG in SODIUM CHLORIDE 0.9% 250 ML IVPB SCH (04:39)
[2023-12-16 05:39] LABS: Glucose,Whole Blood 104 mg/dL (70-110)
[2023-12-16 07:05] LABS: INR 1.1 (<1.2); Prothrombin Time 11.5 sec (10.0-12.5)
[2023-12-16 07:23] LABS: ALT 17 U/L (4-34); AST 34 U/L (14-36); African American GFR (CKD) >90 (>60 ml/min/1.73 sqM); Albumin 3.1 g/dL (3.5-5.0); Albumin/Globulin Ratio 0.6; Alkaline Phosphatase 140 U/L (38-126); Anion Gap 7 mmol/L; Blood Urea Nitrogen 20 mg/dL (7-17); Calcium 9.6 mg/dL (8.4-10.2); Carbon Dioxide 23 mmol/L (22-30); Chloride 112 mmol/L (98-107); Globulin 5.5 g/dL; Glucose 101 mg/dL (74-99); Non-African American GFR(CKD) 86 (>60 ml/min/1.73 sqM); Potassium 3.9 mmol/L (3.5-5.1); Sodium 142 mmol/L (137-145); Total Bilirubin 0.4 mg/dL (0.2-1.3); Total Protein 8.6 g/dL (6.3-8.2)
[2023-12-16 11:24] LABS: Basophils # (A) 0.04 X 10*3/uL (0.00-0.10); Basophils % (A) 0.3 %; Eosinophils # (A) 0.25 X 10*3/uL (0.04-0.35); HCT 29.9 % (37.2-46.3); HGB 9.1 g/dL (12.0-15.0); Lymphocytes # (A) 4.45 X 10*3/uL (0.90-5.00); Lymphocytes % (A) 35.6 %; MCH 29.1 pg (27.0-32.0); MCHC 30.4 g/dL (32.0-37.0); MCV 95.5 FL (80.0-97.0); Mean Platelet Volume 9.3 FL (9.5-12.2); Monocytes # (A) 0.84 X 10*3/uL (0.20-1.00); Monocytes % (A) 6.7 %; NRBC Per 100 WBC 0 X 10*3/uL (0.00-0.01); Neutrophils # (A) 6.86 X 10*3/uL (1.80-7.70); Neutrophils % (A) 54.8 %; Platelet Count 437 X 10*3/uL (140-440); RBC 3.13 X 10*6/uL (4.10-5.20); WBC 12.51 X 10*3/uL (4.50-10.00)
[2023-12-16 11:41] LABS: Glucose,Whole Blood 109 mg/dL (70-110)
[2023-12-16 16:42] LABS: Glucose,Whole Blood 188 mg/dL (70-110)
--- NOTE | 2023-12-16 17:00 | P.PN ---
Subjective Progress Note Date: 12/16/23 this is a 78-year-old female patient who presented to the ER with concerns of increased weakness. Patient is a poor historian and there is currently no family at bedside most history is obtained from medical record patient has past medical history of dementia, CVA, diabetes mellitus, hypertension, oste oarthritis, wounds in which she follows with wound care and PT OT. Patient has decubitus ulcer. Anxiety, bipolar and depression. According to records patient has had increasing frequent falls and completing PT OT at home. Head and cervical CT completed showing no evidence of acute cervical spine fracture or traumatic malalignment. Generalized osteopenia. 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 Bilateral lower extremity venous Doppler completed showing negative for DVT. X- ray of sacrum and coccyx completed showing soft tissue gas posterior to the Sleep around related to decubitus ulcer no clear radiographic evidence of acute bony abnormality. Chest x-ray completed showing heart size is prominent increased lung volumes by basilar opacities left greater than right could be due to atelectasis or developing infiltrate. Current vital signs temp 98.2, heart rate 91, respiratory 18, blood pressure 124/62 with pulse ox 96% on room air. Influenza RSV COVID-19 negative UA showing small amount of leukocyte Estrace wi ll order urine culture. White blood cell 12.3 hemoglobin 9.7. At this time patient will be admitted infectious disease service is consulted wound care service is consulted. Urine and wound cultures ordered On 12/09/2023 patient was seen and examined on the medical floor she is alert and oriented 3 in no apparent distress she is still complaining of lower back pain and pain in the sacral area otherwise she denies any complaints there is no fever or chills no headache or dizziness no chest pain no shortness of breath no cough no nausea or vomiting no abdominal pain no diarrhea and no urinary symptoms On 12/10/2023 patients alert and oriented 3. Current vital signs temp 97.8, heart rate 78, respiratory rate 18, blood pressure 148/51 with pulse ox of 99% on room air. Patient remains on IV Maxipime. Infectious disease and orthopedic services following. Patient complains of generalized pain. Patient denies chest pain or shortness breath. Patient denies nausea vomiting or diarrhea. Patient denies any urinary burning or frequency on 12/11/2023 patient is alert and oriented x 3. current vital temps 98.9, Hr 77, RR 18 blood pressure 147/74 with pulse ox 98%. Urine and growing MRSA. Patient remains on IV antibiotics per infectious disease. Patient denies chest pain or shortness of breath. Patient denies nausea vomiting or diarrhea. Patient denies any urinary burning or frequency On 12/12/2023 patient was seen and examined on the medical floor she is alert and oriented 3 in no apparent distress she is complaining of lower back pain and pain in the sacral area otherwise she denies any complaints there is no fever or chills no headache or dizziness no chest pain no shortness of breath no cough no nausea or vomiting no abdominal pain no diarrhea and no urinary sy mptoms On 12/13/2023 patients alert and oriented 3 resting in bed. Patient maintained on IV vancomycin. Current vital signs temp 98.1, heart rate 85, respiratory rate 18, blood pressure 137/75 with pulse ox of 95% on room air. Wound VAC remains in place. Patient denies chest pain or shortness of breath. Patient denies nausea vomiting or diarrhea. Patient denies any urinary burning or frequ ency On 12/14/2023 patients alert and oriented 3 sitting up in chair eating breakfast. Patient remains on IV vancomycin. Current vital signs temp 98.1, heart rate 90, respiratory rate 14, blood pressure 144/83 with a pulse ox 95% on room air. Patient denies chest pain or shortness of breath. Patient denies nausea vomiting or diarrhea. Patient denies any urinary burning or frequency. Awaiting infectious disease final recommendations for discharge. Social work services following for discharge planning On 12/15/2023 patient was seen and examined on the medical floor she is alert and oriented 3 in no distress she is complaining of pain in the sacral area otherwise she denies any complaints there is no fever or chills no headache or dizziness no chest pain no shortness of breath no cough no nausea or vomiting no abdominal pain no diarrhea and no urinary symptoms. Temperature is 97.4 pulse 92 respiration 16 blood pressure 152/72 pulse ox 98% on room air white blood count is 10.9 hemoglobin 9.9 platelet count 437 On 12/16/2023 patient was seen and examined on the medical floor she is alert and oriented 3 in no apparent distress she is still complaining of pain in the sacral area otherwise she denies any complaints at this time will continue was current medications, awaiting further recommendation from infectious disease regarding antibiotic at the time of discharge, awaiting social work or input in regard to destination at discharge. Objective - Vital Signs Vital signs: Vital Signs Temp 97.8 F 12/16/23 14:00 Pulse 103 H 12/16/23 14:00 Resp 17 12/16/23 14:00 BP 149/78 12/16/23 14:00 Pulse Ox 96 12/16/23 14:00 FiO2 Intake & Output 12/15/23 12/16/23 12/16/23 18:59 06:59 18:59 Output Total 700 675 900 Balance -057 -718 -983 Output: Urine 700 675 900 Other: Voiding Method Bedside Commode Diaper Diaper External Catheter External Catheter # Bowel Movements 1 - Exam Head normocephalic Neck supple Lungs clear to auscultation bilaterally no wheezing or crackles Heart regular rate and rhythm S1-S2, no rub or gallop Abdomen is soft nontender nondistended positive bowel sounds no hepatosplen omegaly Extremities no edema Neuro alert and orientated to 1. Known dementia Decubitus ulcer noted coccyx - Labs CBC & Chem 7: 12/16/23 06:19 12/16/23 06:19 Labs: Abnormal Lab Results - Last 24 Hours (Table) 12/15/23 12/16/23 12/16/23 Range/Units 20:06 06:19 06:19 WBC 12.51 H (4.50-10.00) X 10*3/uL RBC 3.13 L (4.10-5.20) X 10*6/uL Hgb 9.1 L (12.0-15.0) g/dL Hct 29.9 L (37.2-46.3) % MCHC 30.4 L (32.0-37.0) g/dL RDW 15.0 H (11.5-14.5) % MPV 9.3 L (9.5-12.2) FL Immature Gran # 0.07 H (0.00-0.04) X 10*3/uL Chloride 112 H (98-107) mmol/L BUN 20 H (7-17) mg/dL Glucose 101 H (74-99) mg/dL POC Glucose (mg/dL) 131 H (70-110) mg/dL Alkaline Phosphatase 140 H (38-126) U/L Total Protein 8.6 H (6.3-8.2) g/dL Albumin 3.1 L (3.5-5.0) g/dL 12/16/23 Range/Units 16:41 WBC (4.50-10.00) X 10*3/uL RBC (4.10-5.20) X 10*6/uL Hgb (12.0-15.0) g/dL Hct (37.2-46.3) % MCHC (32.0-37.0) g/dL RDW (11.5-14.5) % MPV (9.5-12.2) FL Immature Gran # (0.00-0.04) X 10*3/uL Chloride (98-107) mmol/L BUN (7-17) mg/dL Glucose (74-99) mg/dL POC Glucose (mg/dL) 188 H (70-110) mg/dL Alkaline Phosphatase (38-126) U/L Total Protein (6.3-8.2) g/dL Albumin (3.5-5.0) g/dL Assessment and Plan Assessment: 1. Increased weakness and falls 2. Stage III decubitus ulcer. Patient follows with wound care 3. History of diabetes mellitus type 2 4. History of dementia 5. History of anemia 6. History of lumbar discitis 7. History of essential hypertension DVT prophylaxis eliquis. GI prophylaxis Protonix Infectious disease Wound Care service is consulted Wound and urine cultures ordered Awaiting pharmacy verification of home medication Repeat labs ordered in a.m. PT OT and social work services consulted
--- NOTE | 2023-12-16 17:41 | P.PN ---
Subjective Progress Note Date: 12/16/23 Principal diagnosis: Reason for follow-up is possible UTI and sacral pressure ulcer Patient is a 78-year-old -[place]wegian female with a past medical history significant for diabetes mellitus hypertension osteoarthritis CVA TIA patient also have a history of infected sacral pressure ulcer with underlying osteomyelitis for the patient has completed extensive course of IV and by therapy currently local wound care with a wound VAC patient has been brought into the hospital for evaluation of fatigue and weakness did have a positive UA concerning for possible UTI. On today's visit that is 12/16/2023, Patient is afebrile patient is currently on room air and denies having any shortness of breath, the patient denies any chest pain or cough, the patient denies any nausea vomiting did not have any abdominal pain and no diarrhea. No new symptoms. Patient white count slightly up to 12.51 today, creatinine 0.66 blood culture negative Objective - Vital Signs Vital signs: Vital Signs Temp 98.2 F 12/16/23 07:10 Pulse 89 12/16/23 07:10 Resp 17 12/16/23 07:10 BP 137/67 12/16/23 07:10 Pulse Ox 100 12/16/23 07:10 FiO2 Intake & Output 12/15/23 12/16/23 12/16/23 18:59 06:59 18:59 Output Total 700 675 Balance -700 -675 Output: Urine 700 675 Other: Voiding Method Bedside Commode Diaper Diaper External Catheter External Catheter - Exam GENERAL DESCRIPTION: An elderly female lying in bed in no distress RESPIRATORY SYSTEM: Unlabored breathing , decreased breath sounds at bases HEART: S1 S2 regular rate and rhythm , ABDOMEN: Soft , no tenderness Sacral wound, wound VAC was removed wound base looks clean with no slough tissue there is no surrounding cellulitis or any foul-smelling drainage EXTREMITIES: No edema feet - Labs CBC & Chem 7: 12/16/23 06:19 12/16/23 06:19 Labs: Abnormal Lab Results - Last 24 Hours (Table) 12/15/23 12/15/23 12/16/23 Range/Units 16:48 20:06 06:19 WBC (4.50-10.00) X 10*3/uL RBC (4.10-5.20) X 10*6/uL Hgb (12.0-15.0) g/dL Hct (37.2-46.3) % MCHC (32.0-37.0) g/dL RDW (11.5-14.5) % MPV (9.5-12.2) FL Immature Gran # (0.00-0.04) X 10*3/uL Chloride 112 H (98-107) mmol/L BUN 20 H (7-17) mg/dL Glucose 101 H (74-99) mg/dL POC Glucose (mg/dL) 152 H 131 H (70-110) mg/dL Alkaline Phosphatase 140 H (38-126) U/L Total Protein 8.6 H (6.3-8.2) g/dL Albumin 3.1 L (3.5-5.0) g/dL 12/16/23 Range/Units 06:19 WBC 12.51 H (4.50-10.00) X 10*3/uL RBC 3.13 L (4.10-5.20) X 10*6/uL Hgb 9.1 L (12.0-15.0) g/dL Hct 29.9 L (37.2-46.3) % MCHC 30.4 L (32.0-37.0) g/dL RDW 15.0 H (11.5-14.5) % MPV 9.3 L (9.5-12.2) FL Immature Gran # 0.07 H (0.00-0.04) X 10*3/uL Chloride (98-107) mmol/L BUN (7-17) mg/dL Glucose (74-99) mg/dL POC Glucose (mg/dL) (70-110) mg/dL Alkaline Phosphatase (38-126) U/L Total Protein (6.3-8.2) g/dL Albumin (3.5-5.0) g/dL Assessment and Plan (1) Stage IV pressure ulcer of sacral region Current Visit: No Status: Acute Code(s): L89.154 - PRESSURE ULCER OF SACRAL REGION, STAGE 4 SNOMED Code(s): 20626986783869 (2) Urinary tract infection Current Visit: No Status: Acute Code(s): N39.0 - URINARY TRACT INFECTION, SITE NOT SPECIFIED SNOMED Code(s): 38184826 (3) MRSA (methicillin resistant staph aureus) culture positive Current Visit: Yes Status: Acute Code(s): Z22.322 - CARRIER OR SUSPECTED CARRIER OF METHICILLIN RESIS STAPH SNOMED Code(s): 299649656 Plan: 1-patient with a stage IV sacral pressure ulcer with the patient has for couple of months now and did have a previous episode of osteomyelitis for the patient received adequate antibiotic therapy, patient did have a superficial culture from the sacral wound to the right MRSA wound was examined with the patient nurse wound base looks clean there is no surrounding redness more likely representing colonization rather than infection as the patient shows improvement without getting any treatment for vancomycin, hence we will hold on adding any due to be directed over this positive culture which grew more likely coloniza tion 2-patient did have positive UA and a possible component of UTI, urine has been growing MRSA, blood culture negative 3-patient apparently has been refused at all local group home and son is requ esting for the patient to be transition to oral antibiotics patient is allergic to sulfa we will recommend a 7-day course of Zyvox prescription sent to the pharmacy and close outpatient follow-up Dictation was produced using [employer] dictation software. please excuse any grammatical, word or spelling errors. Time with Patient: Less than 30
[2023-12-16 21:04] LABS: Glucose,Whole Blood 161 mg/dL (70-110)
[2023-12-17 06:17] LABS: Glucose,Whole Blood 148 mg/dL (70-110)
[2023-12-17 07:16] VITALS: BP 134/73; PULSE 94; RESP 18; TEMP 98.1
[2023-12-17 10:02] LABS: Basophils % (A) 0 %; Eosinophils # (A) 0.2 k/uL (0-0.7); Eosinophils % (A) 1 %; HCT 28.5 % (34.0-46.0); HGB 8.6 gm/dL (11.4-16.0); Hypochromasia Marked; Lymphocytes # (A) 3.1 k/uL (1.0-4.8); Lymphocytes % (A) 28 %; MCH 29.5 pg (25.0-35.0); MCHC 30.1 g/dL (31.0-37.0); MCV 98.2 fL (80.0-100.0); Mean Platelet Volume 8.2; Monocytes # (A) 0.6 k/uL (0-1.0); Monocytes % (A) 5 %; Neutrophils # (A) 7.1 k/uL (1.3-7.7); Neutrophils % (A) 64 %; Platelet Count 387 k/uL (150-450); RDW 15.1 % (11.5-15.5); WBC 11.1 k/uL (3.8-10.6)
[2023-12-17 10:08] LABS: ALT 16 U/L (4-34); AST 27 U/L (14-36); African American GFR (CKD) >90 (>60 ml/min/1.73 sqM); Albumin 2.8 g/dL (3.5-5.0); Albumin/Globulin Ratio 0.5; Alkaline Phosphatase 132 U/L (38-126); Anion Gap 7 mmol/L; Blood Urea Nitrogen 21 mg/dL (7-17); Calcium 9.1 mg/dL (8.4-10.2); Carbon Dioxide 21 mmol/L (22-30); Chloride 113 mmol/L (98-107); Globulin 5.2 g/dL; Glucose 120 mg/dL (74-99); Non-African American GFR(CKD) 85 (>60 ml/min/1.73 sqM); Potassium 3.7 mmol/L (3.5-5.1); Sodium 141 mmol/L (137-145); Total Bilirubin 0.6 mg/dL (0.2-1.3)
--- NOTE | 2023-12-17 10:38 | P.DS ---
Providers Date of admission: 12/08/23 03:59 Expected date of discharge: 12/17/23 Attending physician: Janet Sultana Consults: 12/08/23 09:22 Consult Physician Routine Consulting Provider: Monika Cotto Consult Reason/Comments: wounds Do you want consulting provider notified?: Yes 12/08/23 11:02 Consult Physician Routine Consulting Provider: Wagner Puente Consult Reason/Comments: abdnormal Ct of cervical spine Do you want consulting provider notified?: Yes Primary care physician: Janet Kayy [facility] Course: discharge diagnosis 1. Increased weakness and falls 2. Stage III decubitus ulcer. Patient follows with wound care 3. History of diabetes mellitus type 2 4. History of dementia 5. History of anemia 6. History of lumbar discitis 7. History of essential hypertension hospital course this is a 78-year-old female patient who presented to the ER with concerns of increased weakness. Patient is a poor historian and there is currently no family at bedside most history is obtained from medical record patient has past medical history of dementia, CVA, diabetes mellitus, hypertension, osteoarthritis, wounds in which she follows with wound care and PT OT. Patient has decubitus ulcer. Anxiety, bipolar and depression. According to records patient has had increasing frequent falls and completing PT OT at home. Head and cervical CT completed showing no evidence of acute cervical spine fracture or traumatic malalignment. Generalized osteopenia. 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 Bilateral lower extremity venous Doppler completed showing negative for DVT. X-ray of sacrum and coccyx completed showing soft tissue gas posterior to the Sleep around related to decubitus ulcer no clear radiographic evidence of acute bony abnormality. Chest x-ray completed showing heart size is prominent increased lung volumes by basilar opacities left greater than right could be due to atelectasis or developing infiltrate. Current vital signs temp 98.2, heart rate 91, respiratory 18, blood pressure 124/62 with pulse ox 96% on room air. Influenza RSV COVID-19 negative UA showing small amount of leukocyte Estrace will order urine culture. White blood cell 12.3 hemoglobin 9.7. At this time patient will be admitted infectious disease service is consulted wound care service is consulted. Urine and wound cultures ordered On 12/09/2023 patient was seen and examined on the medical floor she is alert and oriented 3 in no apparent distress she is still complaining of lower back pain and pain in the sacral area otherwise she denies any complaints there is no fever or chills no headache or dizziness no chest pain no shortness of breath no cough no nausea or vomiting no abdominal pain no diarrhea and no urinary symptoms On 12/10/2023 patients alert and oriented 3. Current vital signs temp 97.8, heart rate 78, respiratory rate 18, blood pressure 148/51 with pulse ox of 99% on room air. Patient remains on IV Maxipime. Infectious disease and orthopedic services following. Patient complains of generalized pain. Patient denies chest pain or shortness breath. Patient denies nausea vomiting or diarrhea. Patient denies any urinary burning or frequency on 12/11/2023 patient is alert and oriented x 3. current vital temps 98.9, Hr 77, RR 18 blood pressure 147/74 with pulse ox 98%. Urine and growing MRSA. Patient remains on IV antibiotics per infectious disease. Patient denies chest pain or shortness of breath. Patient denies nausea vomiting or diarrhea. Patient denies any urinary burning or frequency On 12/12/2023 patient was seen and examined on the medical floor she is alert and oriented 3 in no apparent distress she is complaining of lower back pain and pain in the sacral area otherwise she denies any complaints there is no fever or chills no headache or dizziness no chest pain no shortness of breath no cough no nausea or vomiting no abdominal pain no diarrhea and no urinary symptoms On 12/13/2023 patients alert and oriented 3 resting in bed. Patient maintained on IV vancomycin. Current vital signs temp 98.1, heart rate 85, respiratory rate 18, blood pressure 137/75 with pulse ox of 95% on room air. Wound VAC remains in place. Patient denies chest pain or shortness of breath. Patient denies nausea vomiting or diarrhea. Patient denies any urinary burning or frequency On 12/14/2023 patients alert and oriented 3 sitting up in chair eating breakfast. Patient remains on IV vancomycin. Current vital signs temp 98.1, heart rate 90, respiratory rate 14, blood pressure 144/83 with a pulse ox 95% on room air. Patient denies chest pain or shortness of breath. Patient denies n ausea vomiting or diarrhea. Patient denies any urinary burning or frequency. Awaiting infectious disease final recommendations for discharge. Social work services following for discharge planning On 12/15/2023 patient was seen and examined on the medical floor she is alert and oriented 3 in no distress she is complaining of pain in the sacral area otherwise she denies any complaints there is no fever or chills no headache or dizziness no chest pain no shortness of breath no cough no nausea or vomiting no abdominal pain no diarrhea and no urinary symptoms. Temperature is 97.4 pulse 92 respiration 16 blood pressure 152/72 pulse ox 98% on room air white blood count is 10.9 hemoglobin 9.9 platelet count 437 On 12/16/2023 patient was seen and examined on the medical floor she is alert an d oriented 3 in no apparent distress she is still complaining of pain in the sacral area otherwise she denies any complaints at this time will continue was current medications, awaiting further recommendation from infectious disease regarding antibiotic at the time of discharge, awaiting social work or input in regard to destination at discharge. On 12/17/2023 patient is resting comfortably in bed. discussed case with social work prescription sent for po zyvox per ID. insurance is able to cover. Patient will be d/c home. patient to follow up with pcp and infectious disease for further management. Patient Condition at Discharge: Good Plan - Discharge Summary Discharge Rx Participant: No New Discharge Prescriptions: New Linezolid [Zyvox] 600 mg PO Q12H #14 tab Continue Apixaban [Eliquis] 5 mg PO BID Multivitamins, Thera [Multivitamin (formulary)] 1 tab PO DAILY Famotidine [Pepcid] 20 mg PO DAILY Lactulose 20 gm PO DAILY PRN PRN Reason: Constipation Cholecalciferol [Vitamin D3 (25 Mcg = 1000 Iu)] 25 mcg PO DAILY Ascorbic Acid [Vitamin C] 250 mg PO DAILY haloperidoL [Haldol] 2.5 mg PO HS #3 tab INSULIN LISPRO (HumaLOG) [humaLOG] See Protocol SQ AC-TID droNABinol [Marinol] 2.5 mg PO BID #6 cap HYDROcodone/APAP 5-325MG [[place] 5-325] 1 tab PO Q8H PRN PRN Reason: Pain Benztropine Mesylate [Cogentin] 2 mg PO HS sitaGLIPtin [Januvia] 50 mg PO DAILY Ferrous Sulfate [Iron] 325 mg PO DAILY Sennosides/Docusate Sodium [Senna Plus 8.6-50 mg Tablet] 1 tab PO BID polyethylene glycoL 3350 [Miralax] 17 gm PO BID Acetaminophen Tab [Tylenol] 500 mg PO Q6HR PRN tab PRN Reason: Fever And/ Or Pain Metoprolol Tartrate [Lopressor] 25 mg PO TID #0 Diclofenac Sodium Gel [Voltaren 1% Gel] 2 gm TOPICAL Q6H Insulin Glargine,Hum.rec.anlog [Lantus Solostar Pen] 10 units SQ DAILY Gabapentin [Neurontin] 100 mg PO BID #6 cap Discharge Medication List Apixaban [Eliquis] 5 mg PO BID 07/29/23 [History] Ascorbic Acid [Vitamin C] 250 mg PO DAILY 07/29/23 [History] Benztropine Mesylate [Cogentin] 2 mg PO HS 07/29/23 [History] Cholecalciferol [Vitamin D3 (25 Mcg = 1000 Iu)] 25 mcg PO DAILY 07/29/23 [History] Famotidine [Pepcid] 20 mg PO DAILY 07/29/23 [History] Ferrous Sulfate [Iron] 325 mg PO DAILY 07/29/23 [History] Lactulose 20 gm PO DAILY PRN 07/29/23 [History] Multivitamins, Thera [Multivitamin (formulary)] 1 tab PO DAILY 07/29/23 [History] Sennosides/Docusate Sodium [Senna Plus 8.6-50 mg Tablet] 1 tab PO BID 07/29/23 [History] polyethylene glycoL 3350 [Miralax] 17 gm PO BID 07/29/23 [History] sitaGLIPtin [Januvia] 50 mg PO DAILY 07/29/23 [History] Acetaminophen Tab [Tylenol] 500 mg PO Q6HR PRN tab 08/09/23 [Rx] Metoprolol Tartrate [Lopressor] 25 mg PO TID #0 08/09/23 [Rx] haloperidoL [Haldol] 2.5 mg PO HS #3 tab 08/09/23 [Rx] Diclofenac Sodium Gel [Voltaren 1% Gel] 2 gm TOPICAL Q6H 08/15/23 [History] INSULIN LISPRO (HumaLOG) [humaLOG] See Protocol SQ AC-TID 10/08/23 [History] Insulin Glargine,Hum.rec.anlog [Lantus Solostar Pen] 10 units SQ DAILY 10/08/23 [History] Gabapentin [Neurontin] 100 mg PO BID #6 cap 10/11/23 [Rx] droNABinol [Marinol] 2.5 mg PO BID #6 cap 11/11/23 [Rx] HYDROcodone/APAP 5-325MG [[place] 5-325] 1 tab PO Q8H PRN 12/08/23 [History] Linezolid [Zyvox] 600 mg PO Q12H #14 tab 12/16/23 [Rx] Follow up Appointment(s)/Referral(s): Janet Sultana MD [Primary Care Provider] - 1-2 days Monika Cotto MD [STAFF PHYSICIAN] - 1 Week Discharge Disposition: HOME WITH HOME HEALTH SERVICES
[2023-12-17 10:46] LABS: C Reactive Protein 5.5 mg/dL (<1.0)
[2023-12-17 11:31] LABS: Glucose,Whole Blood 196 mg/dL (70-110)
--- NOTE | 2023-12-17 15:03 | P.PN ---
Subjective Progress Note Date: 12/17/23 Principal diagnosis: Reason for follow-up is possible UTI and sacral pressure ulcer Patient is a 78-year-old -[place] female with a past medical history significant for diabetes mellitus hypertension osteoarthritis CVA TIA patient also have a history of infected sacral pressure ulcer with underlying osteomyelitis for the patient has completed extensive course of IV and by therapy currently local wound care with a wound VAC patient has been brought into the hospital for evaluation of fatigue and weakness did have a positive UA concerning for possible UTI. On today's visit that is 12/17/2023, patient has been afebrile, patient is breathing comfortably and is currently on room air, patient denies having any significant cough no chest pain shortness of breath, patient denies nausea vomiting or diarrhea and no abdominal pain, no new symptoms. Patient white count is down to 11.1, creatinine 0.67 blood culture negative Objective - Vital Signs Vital signs: Vital Signs Temp 98.1 F 12/17/23 07:05 Pulse 94 12/17/23 07:05 Resp 18 12/17/23 07:05 BP 134/73 12/17/23 07:05 Pulse Ox 99 12/17/23 07:05 FiO2 Intake & Output 12/16/23 12/17/23 12/17/23 18:59 06:59 18:59 Output Total 900 250 Balance -900 -250 Weight 74.843 kg Output: Urine 900 250 Other: Voiding Method Diaper Diaper Diaper External Catheter External Catheter External Catheter # Voids 1 # Bowel Movements 1 - Exam GENERAL DESCRIPTION: An elderly female lying in bed in no distress RESPIRATORY SYSTEM: Unlabored breathing , decreased breath sounds at bases HEART: S1 S2 regular rate and rhythm , ABDOMEN: Soft , no tenderness Sacral wound, wound VAC was removed wound base looks clean with no slough tissue there is no surrounding cellulitis or any foul-smelling drainage EXTREMITIES: No edema feet - Labs CBC & Chem 7: 12/17/23 08:44 12/17/23 08:44 Labs: Abnormal Lab Results - Last 24 Hours (Table) 12/16/23 12/16/23 12/17/23 Range/Units 16:41 21:02 06:16 WBC (3.8-10.6) k/uL RBC (3.80-5.40) m/uL Hgb (11.4-16.0) gm/dL Hct (34.0-46.0) % MCHC (31.0-37.0) g/dL Chloride (98-107) mmol/L Carbon Dioxide (22-30) mmol/L BUN (7-17) mg/dL Glucose (74-99) mg/dL POC Glucose (mg/dL) 188 H 161 H 148 H (70-110) mg/dL Alkaline Phosphatase (38-126) U/L C-Reactive Protein (<1.0) mg/dL Albumin (3.5-5.0) g/dL 12/17/23 12/17/23 12/17/23 Range/Units 08:44 08:44 11:30 WBC 11.1 H (3.8-10.6) k/uL RBC 2.90 L (3.80-5.40) m/uL Hgb 8.6 L (11.4-16.0) gm/dL Hct 28.5 L (34.0-46.0) % MCHC 30.1 L (31.0-37.0) g/dL Chloride 113 H (98-107) mmol/L Carbon Dioxide 21 L (22-30) mmol/L BUN 21 H (7-17) mg/dL Glucose 120 H (74-99) mg/dL POC Glucose (mg/dL) 196 H (70-110) mg/dL Alkaline Phosphatase 132 H (38-126) U/L C-Reactive Protein 5.5 H (<1.0) mg/dL Albumin 2.8 L (3.5-5.0) g/dL Microbiology - Last 24 Hours (Table) 12/11/23 12:17 Blood Culture - Final Blood Assessment and Plan (1) Stage IV pressure ulcer of sacral region Current Visit: No Status: Acute Code(s): L89.154 - PRESSURE ULCER OF SACRAL REGION, STAGE 4 SNOMED Code(s): 20259066086077 (2) Urinary tract infection Current Visit: No Status: Acute Code(s): N39.0 - URINARY TRACT INFECTION, SITE NOT SPECIFIED SNOMED Code(s): 98546989 (3) MRSA (methicillin resistant staph aureus) culture positive Current Visit: Yes Status: Acute Code(s): Z22.322 - CARRIER OR SUSPECTED CARRIER OF METHICILLIN RESIS STAPH SNOMED Code(s): 798754729 Plan: 1-patient with a stage IV sacral pressure ulcer with the patient has for couple of months now and did have a previous episode of osteomyelitis for the patient received adequate antibiotic therapy, patient did have a superficial culture from the sacral wound to the right MRSA wound was examined with the patient nurse wound base looks clean there is no surrounding redness more likely representing colonization rather than infection as the patient shows improvement without getting any treatment for vancomycin, hence we will hold on adding any due to be directed over this positive culture which grew more likely colonizat ion 2-patient did have positive UA and a possible component of UTI, urine has been growing MRSA, blood culture negative 3-patient to finish treatment with 7-day course of Zyvox prescription was sent t o the pharmacy yesterday and close outpatient follow-up Dictation was produced using [employer] dictation software. please excuse any grammatical, word or spelling errors.
[2023-12-18] MEDS ORDERED: VANCOMYCIN TROUGH DUE 1 EACH MISC MISCELLANE ONE (04:00)
== END 2023-12-17 15:00 | disposition home health service (06) | DRG 593 ==
LOC: EC 20:37 → 4SSUR 12-08 03:59
PROVIDERS: ADMIT Internal Medicine; ATTEND Internal Medicine
DX: L89.154 Pressure ulcer of sacral region, stage 4 (principal); N39.0 Urinary tract infection, site not specified; F03.90 Unspecified dementia, unspecified severity, without behavioral disturbance, psychotic disturbance, mood disturbance, and anxiety; M46.46 Discitis, unspecified, lumbar region; L08.89 Other specified local infections of the skin and subcutaneous tissue; B95.62 Methicillin resistant Staphylococcus aureus infection as the cause of diseases classified elsewhere; D64.9 Anemia, unspecified; M85.88 Other specified disorders of bone density and structure, other site; I10 Essential (primary) hypertension; M47.812 Spondylosis without myelopathy or radiculopathy, cervical region; B95.7 Other staphylococcus as the cause of diseases classified elsewhere; E11.69 Type 2 diabetes mellitus with other specified complication; Z88.8 Allergy status to other drugs, medicaments and biological substances; Z88.2 Allergy status to sulfonamides; Z86.73 Personal history of transient ischemic attack (TIA), and cerebral infarction without residual deficits
CPT/HCPCS: 36415; 51702; 70450; 71046; 72125; 72220; 80053; 80202; 81001; 82565; 83036; 83735; 83880; 84145; 84484; 85025; 85610; 85652; 85730; 86140; 87040; 87070; 87075; 87077; 87086; 87186; 87205; 87636; 93005; 93970; 96374; 99285

== ENCOUNTER 2024-01-06 15:12 | Emergency (ER) | payer MEDICARE ==
--- NOTE | 2024-01-06 15:52 | ED ---
General Adult HPI - General Chief complaint: Urogenital Stated complaint: Urogenital Time Seen by Provider: 01/06/24 15:35 Source: family Mode of arrival: wheelchair Limitations: no limitations - History of Present Illness Initial comments: Dictation was produced using [employer] dictation software. please excuse any grammatical, word or spelling errors. Chief Complaint: 78-year-old female brought by daughter for urinalysis History of Present Illness: Patient 78-year-old female she is a poor historian. She is accompanied by her daughter who is also a poor historian states that her primary care doctor Dr. Sultana somehow had patient evaluated by Dr. Mijares who daughter states is infectious disease. States that she had a full workup. Daughter however states that she is concern of urinary tract infection. States that whenever she wipes her mother that there is a brownish discharge. Patient denies any complaints. The ROS documented in this emergency department record has been reviewed and confirmed by me. Those systems with pertinent positive or negative responses have been documented in the HPI. All other systems are other negative and/or noncontributory. - Related Data Home Medications Medication Instructions Recorded Confirmed Apixaban [Eliquis] 5 mg PO BID 07/29/23 12/08/23 Ascorbic Acid [Vitamin C] 250 mg PO DAILY 07/29/23 12/08/23 Benztropine Mesylate [Cogentin] 2 mg PO HS 07/29/23 12/08/23 Cholecalciferol [Vitamin D3 (25 25 mcg PO DAILY 07/29/23 12/08/23 Mcg = 1000 Iu)] Famotidine [Pepcid] 20 mg PO DAILY 07/29/23 12/08/23 Ferrous Sulfate [Iron] 325 mg PO DAILY 07/29/23 12/08/23 Lactulose 20 gm PO DAILY PRN 07/29/23 12/08/23 Multivitamins, Thera [Multivitamin 1 tab PO DAILY 07/29/23 12/08/23 (formulary)] Sennosides/Docusate Sodium [Senna 1 tab PO BID 07/29/23 12/08/23 Plus 8.6-50 mg Tablet] polyethylene glycoL 3350 [Miralax] 17 gm PO BID 07/29/23 12/08/23 sitaGLIPtin [Januvia] 50 mg PO DAILY 07/29/23 12/08/23 Diclofenac Sodium Gel [Voltaren 1% 2 gm TOPICAL Q6H 08/15/23 12/08/23 Gel] INSULIN LISPRO (HumaLOG) [humaLOG] See Protocol SQ AC-TID 10/08/23 12/08/23 Insulin Glargine,Hum.rec.anlog 10 units SQ DAILY 10/08/23 12/08/23 [Lantus Solostar Pen] HYDROcodone/APAP 5-325MG [[place] 1 tab PO Q8H PRN 12/08/23 12/08/23 5-325] Previous Rx's Medication Instructions Recorded Acetaminophen Tab [Tylenol] 500 mg PO Q6HR PRN tab 08/09/23 Metoprolol Tartrate [Lopressor] 25 mg PO TID #0 08/09/23 haloperidoL [Haldol] 2.5 mg PO HS #3 tab 08/09/23 Gabapentin [Neurontin] 100 mg PO BID #6 cap 10/11/23 droNABinol [Marinol] 2.5 mg PO BID #6 cap 11/11/23 Linezolid [Zyvox] 600 mg PO Q12H #14 tab 12/16/23 Allergies Allergy/AdvReac Type Severity Reaction Status Date / Time metformin Allergy Unknown Verified 01/06/24 15:33 Sulfa (Sulfonamide Allergy Unknown Verified 01/06/24 15:33 Antibiotics) Review of Systems ROS Statement: Those systems with pertinent positive or pertinent negative responses have been documented in the HPI. ROS Other: All systems not noted in ROS Statement are negative. Past Medical History Past Medical History: CVA/TIA, Dementia, Diabetes Mellitus, Hypertension, Osteoarthritis (OA) Additional Past Medical History / Comment(s): Pt states she is on an antibiotic for ear infection/throat infection at this time, TIA which affected speech, pt denies HTN but it is documented in past medical hx, diet controlled diabetes History of Any Multi-Drug Resistant Organisms: None Reported Past Surgical History: Orthopedic Surgery Additional Past Surgical History / Comment(s): I&D tooth abscess, left trigger finger surgery Past Anesthesia/Blood Transfusion Reactions: No Reported Reaction Past Psychological History: Anxiety, Bipolar, Depression Smoking Status: Never smoker Past Alcohol Use History: None Reported Past Drug Use History: None Reported - Past Family History Father Family Medical History: No Reported History Mother Family Medical History: No Reported History General Exam - General Exam Comments Initial Comments: General: Well-appearing, nontoxic, no acute distress. Head: Normocephalic, atraumatic Eyes: PERRLA, EOMI ENT: Airway patent Chest: Nonlabored breathing Skin: No visual rash, normal skin tone Neuro: Alert and oriented 3 Musculoskeletal: No gross abnormalities Pelvic exam: Patient refusing Limitations: no limitations Course Vital Signs 01/06/24 15:26 Temperature 98.6 F Pulse Rate 89 Respiratory 15 Rate Blood Pressure 122/75 O2 Sat by Pulse 99 Oximetry Medical Decision Making - Medical Decision Making Was pt. sent in by a medical professional or institution (, JF, ACCOUNT COLLECTOR, urgent care, hospital, or fdc...) When possible be specific @ -No Did you speak to anyone other than the patient for history (EMS, parent, family, police, friend...)? What history was obtained from this source @ -No Did you review nursing and triage notes (agree or disagree)? Why? @ -I reviewed and agree with nursing and triage notes Were old charts reviewed (outside hosp., previous admission, EMS record, old EKG, old radiological studies, urgent care reports/EKG's, fdc records)? Report findings @ -No old charts were reviewed Differential Diagnosis (chest pain, altered mental status, abdominal pain women, abdominal pain men, vaginal bleeding, musculoskeletal, weakness, fever, dyspnea, syncope, headache, dizziness, GI bleed, back pain, seizure, CVA, palpatations, mental health)? @ -Not applicable EKG interpreted by me (3pts min.). @ -None done X-rays interpreted by me (1pt min.). @ -None done CT interpreted by me (1pt min.). @ -None done U/S interpreted by me (1pt. min.). @ -None done What testing was considered but not performed or refused? (CT, X-rays, U/S, labs)? Why? @ -None What meds were considered but not given or refused? Why? @ -None Did you discuss the management of the patient with other professionals (professionals i.e. , PA, ACCOUNT COLLECTOR, lab, RT, psych nurse, high school social science teacher, photo finisher, teacher, police patrol officer, case management rn)? Give summary @ -No Was smoking cessation discussed for >3mins.? @ -No Was critical care preformed (if so, how long)? @ -No Were there social determinants of health that impacted care today? How? (Homelessness, low income, unemployed, alcoholism, drug addiction, transportation, low edu. Level, literacy, decrease access to med. care, detention, rehab)? @ -No Was there de-escalation of care discussed even if they declined (Discuss DNR or withdrawal of care, Hospice)? DNR status @ -No What co-morbidities impacted this encounter? (DM, HTN, Smoking, COPD, CAD, Cancer, CVA, ARF, Chemo, Hep., AIDS, mental health diagnosis, sleep apnea, morbid obesity)? @ -None Was patient admitted / discharged? Hospital course, mention meds given and route, prescriptions, significant lab abnormalities, going to OR and other pertinent info. @ -78-year-old female brought in by daughter who is requesting urinalysis. Vital signs stable. Patient has no acute complaints. Urinalysis positive for 18 white blood cells however patient denies any urinary symptoms. Patient refused any pelvic exam for me however nurse performed a straight cath and patient has a sacral wound. Daughter was questioned about this states that they have been following closely with wound clinic and that this decubitus ulcer has been ongoing for the last several weeks. Urine will be sent to the lab for vivi landa. Advised follow-up with primary care doctor. Undiagnosed new problem with uncertain prognosis? @ -No Drug Therapy requiring intensive monitoring for toxicity (Heparin, Nitro, Insulin, Cardizem)? @ -No Were any procedures done? @ -No Diagnosis/symptom? Acute, or Chronic, or Acute on Chronic? Uncomplicated (without systemic symptoms) or Complicated (systemic symptoms)? @ -Pelvic discharge Side effects of treatment? @ -No Exacerbation, Progression, or Severe Exacerbation? @ -No Poses a threat to life or bodily function? How? (Chest pain, [place], PR, pneumonia, PE, COPD, DKA, ARF, appy, cholecystitis, CVA, Diverticulitis, Homicidal, Suicidal, threat to staff... and all critical care pts) @ -No - Lab Data Lab Results 01/06/24 Range/Units 16:10 Urine Color Yellow Urine Appearance Cloudy H (Clear) Urine pH 6.0 (5.0-8.0) Ur Specific [place] 1.023 (1.001-1.035) Urine Protein 1+ H (Negative) Urine Glucose (UA) Negative (Negative) Urine Ketones Trace H (Negative) Urine Blood Trace H (Negative) Urine Nitrite Negative (Negative) Urine Bilirubin Negative (Negative) Urine Urobilinogen 3.0 (<2.0) mg/dL Ur Leukocyte Esterase Moderate H (Negative) Urine RBC 2 (0-5) /hpf Urine WBC 18 H (0-5) /hpf Ur Squamous Epith Cells <1 (0-4) /hpf Urine Bacteria Many H (None) /hpf Urine Mucus Occasional H (None) /hpf Disposition Clinical Impression: Vaginal discharge Disposition: HOME SELF-CARE Condition: Fair Instructions (If sedation given, give patient instructions): How to Prevent Pressure Injuries (ED) Is patient prescribed a controlled substance at d/c from ED?: No Referrals: Janet Sultana MD [Primary Care Provider] - 1-2 days Time of Disposition: 16:47
[2024-01-06 16:25] LABS: Appearance,Urine Cloudy (Clear); Bacteria,Urine Many /hpf; Bilirubin,Urine Negative (Negative); Blood,Urine Trace (Negative); Color,Urine Yellow; Glucose,Urine (UA) Negative (Negative); Ketones,Urine Trace (Negative); Leukocyte Esterase,Urine Moderate (Negative); Mucus,Urine Occasional /hpf; Nitrite,Urine Negative (Negative); Protein,Urine 1+ (Negative); RBC,Urine 2 /hpf (0-5); Specific Gravity,Urine 1.023 (1.001-1.035); Squamous Epithelial Cell,Urine <1 /hpf (0-4); WBC,Urine 18 /hpf (0-5)
[2024-01-06 16:26] VITALS: TEMP 98.6
[2024-01-06 17:04] VITALS: BP 117/72; PULSE 87; RESP 16
== END 2024-01-06 17:05 | disposition home or self-care (01) ==
LOC: EC 15:12
DX: N89.8 Other specified noninflammatory disorders of vagina (principal); Z88.2 Allergy status to sulfonamides; Z88.8 Allergy status to other drugs, medicaments and biological substances; Z86.73 Personal history of transient ischemic attack (TIA), and cerebral infarction without residual deficits
CPT/HCPCS: 81001; 99283

== ENCOUNTER → 2024-03-09 | Outpatient (CLI) | payer MEDICARE ==
[2024-03-09 19:15] LABS: HCT 32.3 % (37.2-46.3); HGB 9.7 g/dL (12.0-15.0); MCH 29.7 pg (27.0-32.0); MCV 98.8 FL (80.0-97.0); Mean Platelet Volume 9.8 FL (9.5-12.2); NRBC Per 100 WBC 0 X 10*3/uL (0.00-0.01); Platelet Count 381 X 10*3/uL (140-440); RBC 3.27 X 10*6/uL (4.10-5.20); RDW 16.3 % (11.5-14.5); WBC 10.26 X 10*3/uL (4.50-10.00)
[2024-03-09 19:37] LABS: Eosinophils # (M) 0 X 10*3/uL (0.04-0.35); Lymphocytes # (M) 4.82 X 10*3/uL (0.90-5.00); Metamyelocytes % 1 % (0-0); Monocytes # (M) 0.41 X 10*3/uL (0.20-1.00); Neutrophils # (M) 4.82 X 10*3/uL (1.80-7.70); Neutrophils % (M) 47 %; RBC Morphology Normal (Normal)
== END | disposition home or self-care (01) ==
LOC: LABWHC1 11:07
PROVIDERS: ATTEND Midwife
DX: N95.0 Postmenopausal bleeding (principal)
CPT/HCPCS: 36415; 85025; 86304

== ENCOUNTER → 2024-03-12 | Outpatient (CLI) | payer MEDICARE ==
[2024-03-12 16:51] LABS: African American GFR (CKD) >90 (>60 ml/min/1.73 sqM); Blood Urea Nitrogen 19 mg/dL (7-17); Non-African American GFR(CKD) 86 (>60 ml/min/1.73 sqM)
--- NOTE | 2024-03-12 19:06 | CT ---
EXAMINATION TYPE: CT abdomen pelvis wo/w con DATE OF EXAM: 03/12/2024 HISTORY: post mel bleeding x [address] DLP: 1800mGycm Automated Exposure Control for Dose Reduction was Utilized. CONTRAST: CT scan of the abdomen and pelvis is performed without and with IV Contrast, patient inject ed with 100ml mL of Isovue 300. Oral contrast also administered. COMPARISON: CT 09/18/2017 FINDINGS: LUNG BASES: No acute process. Prominent left and right coronary calcifications are noted, in addition to mild cardiomegaly and panchamber enlargement. LIVER/GB: No significant abnormality is appreciated. PANCREAS: No significant abnormality is seen. SPLEEN: No significant abnormality is seen. ADRENALS: No significant abnormality is seen. KIDNEYS: No significant abnormality is seen. BOWEL: No dilated loops of bowel or focal inflammatory changes. Appendix is negative. There is a mar kedly excessive volume of stool throughout the colon. PERITONEAL CAVITY: No pneumoperitoneum or fluid. PELVIC VISCERA: There is marked urinary bladder distention, extending up to the level of the umbilicu s. The uterus is anteverted and enlarged, even more so than the bladder, extending above the level of th e umbilicus and measuring 15.5 cm CC x 7.5 cm AP x 8.5 cm TV. There are multifocal myometrial leiomyo mas, some which are heavily calcified. Endometrial cavity appears markedly thickened and predominantly hypodense but with some areas of high attenuation; some or most of this endometrial process could be due to hemorrhage but underlying path ology cannot be excluded. MRI can further characterize. The thickened endometrial stripe measures 3.1 - 3.5 cm contiguously from the fundus to the distal cervix. Also in the fundus is a 3.5 x 2 x 1 cm f ocus of gas which appears to be nondependent. LYMPH NODES: No greater than 1cm abdominal or pelvic lymph nodes are appreciated. VASCULATURE: No acute process. Markedly advanced nonaneurysmal atherosclerotic changes are seen throu ghout the visualized arterial anatomy, including the coronary arteries. OSSEOUS STRUCTURES: No aggressive focal findings. IMPRESSION: 1. Enlarged leiomyomatous uterus with abnormal endometrial findings as discussed. 2. Marked urinary bladder distention. 3. Markedly excessive pancolonic stool volume. 4. Marked and excessive left and right coronary calcifications.
== END | disposition home or self-care (01) ==
LOC: RADCTMAIN 15:58
PROVIDERS: ATTEND Obstetrics & Gynecology
DX: N95.0 Postmenopausal bleeding (principal); D25.9 Leiomyoma of uterus, unspecified; R33.9 Retention of urine, unspecified
CPT/HCPCS: 82565; 84520; 74178; 36415; Q9967

== ENCOUNTER → 2024-04-06 | Outpatient (CLI) | payer MEDICARE, OTHER ==
--- NOTE | 2024-04-06 12:01 | MR ---
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 TECHNIQUE: Multi planar, multi sequence imaging was performed through the brain including: T1, T2, In version recovery, Diffusion weighted imaging, and gradient echo imaging. No gadolinium was given. FINDINGS: Mild cerebral atrophy with proportional dilation of ventricular system. Scattered foci of high T2 s ignal intensity are seen within the periventricular white matter. Midline structures show no abnormal ity. Diffusion-weighted imaging shows no evidence of restricted diffusion. The susceptibility weighte d images do not reveal any evidence for micro-hemorrhage. The bone marrow signal is within normal limits. Paranasal sinuses and mastoid air cells: No significant paranasal sinus disease. Visualized orbits: Orbital contents are intact. IMPRESSION: Exam done without contrast due to lack of IV access. 1. No evidence of intracranial mass or acute/subacute infarct. 2. Nonspecific white matter changes, likely secondary to small vessel ischemic disease.
== END | disposition home or self-care (01) ==
LOC: RADMRIMAIN 09:17
PROVIDERS: ATTEND Psychiatry & Neurology Neurology
DX: G24.4 Idiopathic orofacial dystonia (principal); G93.41 Metabolic encephalopathy; R93.89 Abnormal findings on diagnostic imaging of other specified body structures; I67.82 Cerebral ischemia; R90.82 White matter disease, unspecified; Z12.9 Encounter for screening for malignant neoplasm, site unspecified
CPT/HCPCS: 70551

== ENCOUNTER 2024-06-14 07:24 | Inpatient (IN) | payer MEDICARE ==
--- NOTE | 2024-06-14 09:18 | XR ---
EXAMINATION TYPE: XR chest 2V DATE OF EXAM: 06/14/2024 COMPARISON: 12/07/2023 HISTORY: 78-year-old female weakness and pain TECHNIQUE: AP and lateral views FINDINGS: New diffuse cannonball metastases. Heart mildly enlarged. Possible trace pleural effusions. Posterior lumbar fusion partially visualized. 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 [facility], , 06/14/2024 9:16 AM
[2024-06-14 10:35] LABS: Anisocytosis Slight; Basophils % (A) 0 %; Eosinophils # (A) 0.2 k/uL (0-0.7); Eosinophils % (A) 4 %; HCT 26.9 % (34.0-46.0); HGB 8.4 gm/dL (11.4-16.0); Hypochromasia Moderate; Lymphocytes # (A) 0.8 k/uL (1.0-4.8); Lymphocytes % (A) 13 %; MCH 30.3 pg (25.0-35.0); MCHC 31.3 g/dL (31.0-37.0); MCV 96.6 fL (80.0-100.0); Mean Platelet Volume 7.8; Monocytes # (A) 0.4 k/uL (0-1.0); Monocytes % (A) 6 %; Neutrophils # (A) 4.7 k/uL (1.3-7.7); Neutrophils % (A) 75 %; Platelet Count 401 k/uL (150-450); RBC 2.78 m/uL (3.80-5.40); RDW 16.3 % (11.5-15.5); WBC 6.3 k/uL (3.8-10.6)
--- NOTE | 2024-06-14 10:43 | ED ---
Altered Mental Status HPI - General Chief Complaint: Recheck/Abnormal Lab/Rx Stated Complaint: Left flank pain, back sore Time Seen by Provider: 06/14/24 09:29 Source: patient, family, RN notes reviewed Mode of arrival: wheelchair Limitations: no limitations - History of Present Illness Initial Comments: This is a 78-year-old female who presents to the emergency department for confusion, left-sided rib pain, and a sacral wound. Family states that she started seeming confused a couple of days ago, which typically occurs when she has a UTI. Additionally, she has a pressure ulcer to her sacrum that has been there for about a year. The family had been changing the dressings and monitoring it, however her son states that he started to notice green drainage coming from this a couple of days ago and is worried about infection. States that she has been septic before from this. Not currently on any antibiotics. Patient also complaining of lower back pain. She does have a history of endometrial cancer and is currently being treated with radiation. MD Complaint: altered mental status, confusion - Related Data Home Medications Medication Instructions Recorded Confirmed Famotidine [Pepcid] 20 mg PO DAILY 07/29/23 06/14/24 Atorvastatin [Lipitor] 40 mg PO DAILY 06/14/24 06/14/24 Benztropine Mesylate [Cogentin] 1 mg PO BID 06/14/24 06/14/24 Celecoxib [CeleBREX] 100 mg PO DAILY 06/14/24 06/14/24 Ondansetron Odt [Zofran Odt] 4 mg PO Q8HR PRN 06/14/24 06/14/24 traMADol HCL 25 - 50 mg PO Q4H PRN 06/14/24 06/14/24 Previous Rx's Medication Instructions Recorded Metoprolol Tartrate [Lopressor] 25 mg PO TID #0 08/09/23 haloperidoL [Haldol] 2.5 mg PO HS #3 tab 08/09/23 Allergies Allergy/AdvReac Type Severity Reaction Status Date / Time metformin Allergy Unknown Verified 06/14/24 07:55 Sulfa (Sulfonamide Allergy Unknown Verified 06/14/24 07:55 Antibiotics) Review of Systems ROS Statement: Those systems with pertinent positive or pertinent negative responses have been documented in the HPI. ROS Other: All systems not noted in ROS Statement are negative. Past Medical History Past Medical History: CVA/TIA, Dementia, Diabetes Mellitus, Hypertension, Osteoarthritis (OA) Additional Past Medical History / Comment(s): Pt states she is on an antibiotic for ear infection/throat infection at this time, TIA which affected speech, pt denies HTN but it is documented in past medical hx, diet controlled diabetes History of Any Multi-Drug Resistant Organisms: None Reported Past Surgical History: Orthopedic Surgery Additional Past Surgical History / Comment(s): I&D tooth abscess, left trigger finger surgery Past Anesthesia/Blood Transfusion Reactions: No Reported Reaction Past Psychological History: Anxiety, Bipolar, Depression Smoking Status: Never smoker Past Alcohol Use History: None Reported Past Drug Use History: None Reported - Past Family History Father Family Medical History: No Reported History Mother Family Medical History: No Reported History General Exam Limitations: no limitations General appearance: alert, in no apparent distress Head exam: Present: atraumatic, normocephalic, normal inspection Respiratory exam: Present: normal lung sounds bilaterally. Absent: respiratory distress, wheezes, rales, rhonchi, stridor Cardiovascular Exam: Present: regular rate, normal rhythm, normal heart sounds. Absent: systolic murmur, diastolic murmur, rubs, gallop, clicks Neurological exam: Present: alert Psychiatric exam: Present: normal affect, normal mood Course Vital Signs 06/14/24 06/14/24 07:52 13:54 Temperature 97.6 F Pulse Rate 86 89 Respiratory 16 18 Rate Blood Pressure 124/74 130/54 O2 Sat by Pulse 97 99 Oximetry Medical Decision Making - Medical Decision Making This is a 78-year-old female who presents to the emergency department for confusion, left-sided rib pain, and a sacral pressure ulcer. Was pt. sent in by a medical professional or institution? @ -No Did you speak to anyone other than the patient for history? @ -Her son provided most of the history. Did you review nursing and triage notes? @ -Yes, and I agree, it is accurate with regards to the patient's symptoms. Were old charts reviewed? @ -No Differential Diagnosis? @ -Differential Altered Mental Status: Hypoglycemia, DKA, hypercapnia, ETOH, overdose, CO poisoning, trauma, myxedema coma, HTN encephalopathy, infection, encephalitis, psychosis, intercranial hemorrhage, hepatic encephalopathy, meningitis, CVA, this is not meant to be an all-inclusive list EKG interpreted by me (3pts min.)? @ -EKG interpreted by me demonstrating the following: Sinus rhythm. Ventricular rate 95 bpm, ID interval 158 ms, QRS duration 78 ms, QTc 379 ms. X-rays interpreted by me (1pt min.)? @ -Chest x-ray obtained. My interpretation identifies diffuse pulmonary lesions. CT interpreted by me (1pt min.)? @ -CT scan of the abdomen and pelvis obtained. My interpretation identifies a sacral decubitus ulcer. U/S interpreted by me (1pt. min.)? @ -Not obtained What testing was considered but not performed? (CT, X-rays, U/S, labs)? Why? @ -None What meds were considered but not given? Why? @ -None Did you discuss the management of the patient with other professionals? @ -Yes, Dr. Donahue, who accepts the patient for admission Did you reconcile home meds? @ -No Was smoking cessation discussed for >3mins.? @ -No Was critical care preformed (if so, how long)? @ -No Were there social determinants of health that impacted care today? How? (Homelessness, low income, unemployed, alcoholism, drug addiction, transportation, low edu. Level, literacy, decrease access to med. care, nursing home, rehab)? @ -No Was there de-escalation of care discussed even if they declined? (Discuss DNR or withdrawal of care, Hospice)? @ -No What co-morbidities impacted this encounter? (DM, HTN, Smoking, COPD, CAD, Cancer, CVA, Hep., AIDS, mental health diagnosis, sleep apnea, morbid obesity)? @ -Dementia, DM, HLD, cancer Was patient admitted / discharged? @ -Admitted. Lab work demonstrates a hemoglobin of 8.4, which is fairly consistent when compared with prior values. ESR elevated at 66 and CRP elevated at 2.3. Urinalysis consistent with infection. Chest x-ray demonstrates new cannonball pulmonary metastasis suspicious for metastatic endometrial carcinoma given prior history. She did have a fairly prominent sacral ulcer on exam and a CT scan of the abdomen and pelvis was obtained for further evaluation of this area. CT scan demonstrates midline sacral decubitus ulcer with the ulcer crater appearing larger than prior. This remains full-thickness. The endometrial thickening does appear improved when compared with prior. However, this did also again identify the cannonball pulmonary mets visualized on the x-ray. Urinalysis consistent with infection. Urine sent for culture. Given patient's increasing confusion with urinary tract infection and possible infected sacral d ecubitus ulcer, patient was admitted to medicine for management with IV antibiotics. Blood culture obtained. Aerobic and anaerobic wound cultures obtained as well. She was started on Rocephin and vancomycin to cover for both urine and possible infected sacral decubitus ulcer. Consult placed for infectious disease. Hem/onc consulted for further evaluation of metastasis. Case discussed with ED attending Dr. Sawyer. Undiagnosed new problem with uncertain prognosis? @ -None Drug Therapy requiring intensive monitoring for toxicity (Heparin, Nitro, Insul in, Cardizem)? @ -None Were any procedures done? @ -None Diagnosis/symptom? @ -UTI, confusion, infected sacral decubitus ulcer Acute, or Chronic, or Acute on Chronic? @ -Acute Uncomplicated (without systemic symptoms) or Complicated (systemic symptoms)? @ -Complicated Side effects of treatment? @ -None Exacerbation, Progression, or Severe Exacerbation] @ -Not applicable Poses a threat to life or bodily function? @ -Yes, can lead to worsening infection and sepsis - Lab Data Result diagrams: 06/14/24 08:57 06/14/24 10:51 Lab Results 06/14/24 06/14/24 06/14/24 Range/Units 08:57 08:57 08:57 WBC 6.3 (3.8-10.6) k/uL RBC 2.78 L (3.80-5.40) m/uL Hgb 8.4 L (11.4-16.0) gm/dL Hct 26.9 L (34.0-46.0) % MCV 96.6 (80.0-100.0) fL MCH 30.3 (25.0-35.0) pg MCHC 31.3 (31.0-37.0) g/dL RDW 16.3 H (11.5-15.5) % Plt Count 401 (150-450) k/uL MPV 7.8 Neutrophils % 75 % Lymphocytes % 13 % Monocytes % 6 % Eosinophils % 4 % Basophils % 0 % Neutrophils # 4.7 (1.3-7.7) k/uL Lymphocytes # 0.8 L (1.0-4.8) k/uL Monocytes # 0.4 (0-1.0) k/uL Eosinophils # 0.2 (0-0.7) k/uL Basophils # 0.0 (0-0.2) k/uL Hypochromasia Moderate Anisocytosis Slight ESR 66 H (0-30) mm/Hr Sodium (137-145) mmol/L Potassium (3.5-5.1) mmol/L Chloride (98-107) mmol/L Carbon Dioxide (22-30) mmol/L Anion Gap mmol/L BUN (7-17) mg/dL Creatinine (0.52-1.04) mg/dL Est GFR (CKD-EPI)AfAm (>60 ml/min/1.73 sqM) Est GFR (CKD-EPI)NonAf (>60 ml/min/1.73 sqM) Glucose (74-99) mg/dL Plasma Lactic Acid John 1.3 (0.7-2.0) mmol/L Calcium (8.4-10.2) mg/dL Phosphorus (2.5-4.5) mg/dL Magnesium (1.6-2.3) mg/dL Total Bilirubin (0.2-1.3) mg/dL AST (14-36) U/L ALT (4-34) U/L Alkaline Phosphatase (38-126) U/L Troponin I (0.000-0.034) ng/mL C-Reactive Protein (<1.0) mg/dL Total Protein (6.3-8.2) g/dL Albumin (3.5-5.0) g/dL Urine Color Yellow Urine Appearance Cloudy H (Clear) Urine pH 6.0 (5.0-8.0) Ur Specific Wallace 1.020 (1.001-1.035) Urine Protein Trace H (Negative) Urine Glucose (UA) Negative (Negative) Urine Ketones Negative (Negative) Urine Blood Negative (Negative) Urine Nitrite Positive H (Negative) Urine Bilirubin Negative (Negative) Urine Urobilinogen <2.0 (<2.0) mg/dL Ur Leukocyte Esterase Small H (Negative) Urine RBC 3 (0-5) /hpf Urine WBC 24 H (0-5) /hpf Calcium Oxalate Crystal Few H (None) /hpf Urine Bacteria Moderate H (None) /hpf Urine Mucus Occasional H (None) /hpf 06/14/24 06/14/24 Range/Units 10:51 11:00 WBC (3.8-10.6) k/uL RBC (3.80-5.40) m/uL Hgb (11.4-16.0) gm/dL Hct (34.0-46.0) % MCV (80.0-100.0) fL MCH (25.0-35.0) pg MCHC (31.0-37.0) g/dL RDW (11.5-15.5) % Plt Count (150-450) k/uL MPV Neutrophils % % Lymphocytes % % Monocytes % % Eosinophils % % Basophils % % Neutrophils # (1.3-7.7) k/uL Lymphocytes # (1.0-4.8) k/uL Monocytes # (0-1.0) k/uL Eosinophils # (0-0.7) k/uL Basophils # (0-0.2) k/uL Hypochromasia Anisocytosis ESR (0-30) mm/Hr Sodium 136 L (137-145) mmol/L Potassium 4.4 (3.5-5.1) mmol/L Chloride 104 (98-107) mmol/L Carbon Dioxide 27 (22-30) mmol/L Anion Gap 5 mmol/L BUN 19 H (7-17) mg/dL Creatinine 0.53 (0.52-1.04) mg/dL Est GFR (CKD-EPI)AfAm >90 (>60 ml/min/1.73 sqM) Est GFR (CKD-EPI)NonAf >90 (>60 ml/min/1.73 sqM) Glucose 100 H (74-99) mg/dL Plasma Lactic Acid John (0.7-2.0) mmol/L Calcium 9.9 (8.4-10.2) mg/dL Phosphorus 3.9 (2.5-4.5) mg/dL Magnesium 1.7 (1.6-2.3) mg/dL Total Bilirubin 0.7 (0.2-1.3) mg/dL AST 32 (14-36) U/L ALT 16 (4-34) U/L Alkaline Phosphatase 87 (38-126) U/L Troponin I <0.012 (0.000-0.034) ng/mL C-Reactive Protein 2.3 H (<1.0) mg/dL Total Protein 9.3 H (6.3-8.2) g/dL Albumin 3.4 L (3.5-5.0) g/dL Urine Color Urine Appearance (Clear) Urine pH (5.0-8.0) Ur Specific Wallace (1.001-1.035) Urine Protein (Negative) Urine Glucose (UA) (Negative) Urine Ketones (Negative) Urine Blood (Negative) Urine Nitrite (Negative) Urine Bilirubin (Negative) Urine Urobilinogen (<2.0) mg/dL Ur Leukocyte Esterase (Negative) Urine RBC (0-5) /hpf Urine WBC (0-5) /hpf Calcium Oxalate Crystal (None) /hpf Urine Bacteria (None) /hpf Urine Mucus (None) /hpf - Radiology Data Radiology results: report reviewed, image reviewed Disposition Clinical Impression: UTI (urinary tract infection), Confusion, Sacral decubitus ulcer Disposition: ADMITTED IP TO THIS HOSP
[2024-06-14 11:50] LABS: ALT 16 U/L (4-34); AST 32 U/L (14-36); African American GFR (CKD) >90 (>60 ml/min/1.73 sqM); Albumin 3.4 g/dL (3.5-5.0); Alkaline Phosphatase 87 U/L (38-126); Anion Gap 5 mmol/L; Blood Urea Nitrogen 19 mg/dL (7-17); Calcium 9.9 mg/dL (8.4-10.2); Carbon Dioxide 27 mmol/L (22-30); Chloride 104 mmol/L (98-107); Glucose 100 mg/dL (74-99); Magnesium 1.7 mg/dL (1.6-2.3); Non-African American GFR(CKD) >90 (>60 ml/min/1.73 sqM); Phosphorus 3.9 mg/dL (2.5-4.5); Potassium 4.4 mmol/L (3.5-5.1); Sodium 136 mmol/L (137-145); Total Bilirubin 0.7 mg/dL (0.2-1.3); Total Protein 9.3 g/dL (6.3-8.2)
[2024-06-14 12:31] LABS: C Reactive Protein 2.3 mg/dL (<1.0)
[2024-06-14 12:58] LABS: Appearance,Urine Cloudy (Clear); Bacteria,Urine Moderate /hpf; Bilirubin,Urine Negative (Negative); Blood,Urine Negative (Negative); Calcium Oxalate Crystals,Urine Few /hpf; Color,Urine Yellow; Glucose,Urine (UA) Negative (Negative); Ketones,Urine Negative (Negative); Leukocyte Esterase,Urine Small (Negative); Mucus,Urine Occasional /hpf; Nitrite,Urine Positive (Negative); Protein,Urine Trace (Negative); RBC,Urine 3 /hpf (0-5); Urobilinogen,Urine <2.0 mg/dL (<2.0); WBC,Urine 24 /hpf (0-5)
--- NOTE | 2024-06-14 13:35 | CT ---
EXAMINATION TYPE: CT abdomen pelvis w con DATE OF EXAM: 06/14/2024 COMPARISON: 03/12/2024 HISTORY: 78-year-old female Weakness, sacral wound TECHNIQUE: Contiguous axial scanning of the abdomen and pelvis following administration of 100 ml Iso kylah 300 IV contrast. Delayed images through the kidneys and coronal/sagittal reconstructions perform ed. CT DLP: 785.1 mGycm Automated exposure control for dose reduction was used. FINDINGS: Generalized anasarca changes. Coronary artery calcifications. Heart normal size without per icardial effusion. Cannonball metastases in the visualized lungs measuring up to 3.1 cm. Trace right pleural effusion. No focal liver lesion. Similar hydropic gallbladder measuring 4.8 cm wide with layering gravel/tiny calculi. Adrenal glands, left kidney, spleen, and pancreas are gross abnormality. 1.5 cm cortical cyst posterior right kidney. The abdominal rectus directly redemonstrated with anterior bulging caused by underlying colon. No dilated small bowel, free fluid, or free air. There is moderate atherosclerotic calcifications infrarenal abdominal aorta and iliac arteries. Quintanilla catheter is in place. Bladder collapsed. Bulky fibroid uterus. Abnormal enlargement of the endo metrium up to 2 cm shows partial improvement from 2.9 cm, previously. Ovaries not well delineated fro m adjacent bowel loops. No definite pelvic lymphadenopathy. Bones: Posterior lumbar fusion L1-L4 levels. Previous vertebroplasty change L2 level. Sacral wound is redemonstrated. Air directly contacts the underlying coccyx. Irregularity and bone lo ss here is similar to possibly minimally increased, sagittal image 60 and 61. Diffuse osteopenia. IMPRESSION: 1. MIDLINE SACRAL DECUBITUS ULCER. THE ULCER CRATER APPEARS LARGER AND REMAINS FULL THICKNESS TO THE UNDERLYING COCCYX. THE BONE LOSS HERE TO THE COCCYX IS SIMILAR TO POSSIBLY MINIMALLY INCREASED. NO FR ANK PROGRESSIVE OSSEOUS DESTRUCTION AT THIS TIME. 2. Abnormal endometrial thickening up to 2.0 cm shows partial improvement compared to 2.9 cm, previou sly. Query any relevant oncologic history. 3. New cannonball pulmonary metastases throughout the visualized lungs measuring up to 3.1 cm. Trace right pleural effusion. [facility], , 06/14/2024 1:33 PM
[2024-06-14] MEDS ORDERED: VANCOMYCIN IV PER PHARMACY 1 EACH MISC MISCELLANE PRN (13:46)
[2024-06-14] MEDS ORDERED: MORPHINE SULFATE 4 MG/ML SYRINGE IV PRN (13:58)
[2024-06-14] MEDS ORDERED: NALOXONE 0.4 MG/ML 1 ML VIAL IV PRN (13:58)
[2024-06-14] MEDS ORDERED: ONDANSETRON 4 MG/2 ML VIAL IVP PRN (13:58)
[2024-06-14 14:55] LABS: Erythrocyte Sedimentation Rate 66 mm/Hr (0-30)
[2024-06-14] MEDS: SODIUM CHLORIDE 0.9% 1,000 ML IV SCH (15:13)
--- NOTE | 2024-06-14 16:31 | P.HPIM ---
History of Present Illness H&P Date: 06/14/24 Chief Complaint: Worsening sacral wound/confusion 78-year-old female, history of hypertension, diabetes mellitus, dementia, metastatic uterine cancer, who presents to the emergency department for confusion, left-sided rib pain, and a sacral wound. Family states that she st arted seeming confused a couple of days ago, which typically occurs when she has a UTI. Additionally, she has a pressure ulcer to her sacrum that has been there for about a year. The family had been changing the dressings and monitoring it, however her son states that he started to notice green drainage coming from this a couple of days ago and is worried about infection. States that she has been septic before from this. Not currently on any antibiotics. Patient also complaining of lower back pain. Blood work completed in ED reveals a WBC of 6.3, hemoglobin of 8.1 and platelet count of 401, sodium 136, potassium 4.4, BUN/creatinine of 19/0.53 and blood glucose of 100, lactic acid level of 1.3, UA is positive for nitrites, leukocyte esterase, WBCs and bacteria, troponin is less than 0.012 Sacral decubitus ulcer, crater appears larger and remains full-thickness to the underlying coccyx. Bone loss minimally increased but no osseous disease; new cannonball pulmonary metastases throughout the visualized lungs measuring up to 3.1 cm with trace pleural effusion Review of Systems REVIEW OF SYSTEMS: CONSTITUTIONAL: No fever, no malaise, no fatigue. HEENT: No recent visual problems or hearing problems. Denied any sore throat. CARDIOVASCULAR: No chest pain, orthopnea, PND, no palpitations, no syncope. PULMONARY: No shortness of breath, no cough, no hemoptysis. GASTROINTESTINAL: No diarrhea, no nausea, no vomiting, no abdominal pain. NEUROLOGICAL: No headaches, no weakness, no numbness. HEMATOLOGICAL: Denies any bleeding or petechiae. GENITOURINARY: Denies any burning micturition, frequency, or urgency. MUSCULOSKELETAL/RHEUMATOLOGICAL: Denies any joint pain, swelling, or any muscle pain. ENDOCRINE: Denies any polyuria or polydipsia. The rest of the 14-point review of systems is negative. Past Medical History Past Medical History: CVA/TIA, Dementia, Diabetes Mellitus, Hypertension, Osteoarthritis (OA) Additional Past Medical History / Comment(s): Pt states she is on an antibiotic for ear infection/throat infection at this time, TIA which affected speech, pt denies HTN but it is documented in past medical hx, diet controlled diabetes History of Any Multi-Drug Resistant Organisms: None Reported Past Surgical History: Orthopedic Surgery Additional Past Surgical History / Comment(s): I&D tooth abscess, left trigger finger surgery Past Anesthesia/Blood Transfusion Reactions: No Reported Reaction Past Psychological History: Anxiety, Bipolar, Depression Smoking Status: Never smoker Past Alcohol Use History: None Reported Past Drug Use History: None Reported - Past Family History Father Family Medical History: No Reported History Mother Family Medical History: No Reported History Medications and Allergies Home Medications Medication Instructions Recorded Confirmed Type Famotidine [Pepcid] 20 mg PO DAILY 07/29/23 06/14/24 History Metoprolol Tartrate [Lopressor] 25 mg PO TID #0 08/09/23 06/14/24 Rx haloperidoL [Haldol] 2.5 mg PO HS #3 tab 08/09/23 06/14/24 Rx Atorvastatin [Lipitor] 40 mg PO DAILY 06/14/24 06/14/24 History Benztropine Mesylate [Cogentin] 1 mg PO BID 06/14/24 06/14/24 History Celecoxib [CeleBREX] 100 mg PO DAILY 06/14/24 06/14/24 History Ondansetron Odt [Zofran Odt] 4 mg PO Q8HR PRN 06/14/24 06/14/24 History traMADol HCL 25 - 50 mg PO Q4H PRN 06/14/24 06/14/24 History Allergies Allergy/AdvReac Type Severity Reaction Status Date / Time metformin Allergy Unknown Verified 06/14/24 07:55 Sulfa (Sulfonamide Allergy Unknown Verified 06/14/24 07:55 Antibiotics) Physical Exam Vitals: Vital Signs Temp Pulse Resp BP Pulse Ox 06/14/24 13:54 89 18 130/54 99 06/14/24 07:52 97.6 F 86 16 124/74 97 Intake and Output 06/14/24 06/14/24 06/14/24 06:59 14:59 22:59 Other: Weight 57.606 kg General appearance: alert, in no apparent distress Head exam: Present: atraumatic, normocephalic, normal inspection Respiratory exam: Present: normal lung sounds bilaterally. Absent: respiratory distress, wheezes, rales, rhonchi, stridor Cardiovascular Exam: Present: regular rate, normal rhythm, normal heart sounds. Absent: systolic murmur, diastolic murmur, rubs, gallop, clicks Neurological exam: Present: alert Psychiatric exam: Present: normal affect, normal mood Results CBC & Chem 7: 06/14/24 08:57 06/14/24 10:51 Labs: Abnormal Lab Results - Last 24 Hours (Table) 06/14/24 06/14/24 06/14/24 Range/Units 08:57 08:57 10:51 RBC 2.78 L (3.80-5.40) m/uL Hgb 8.4 L (11.4-16.0) gm/dL Hct 26.9 L (34.0-46.0) % RDW 16.3 H (11.5-15.5) % Lymphocytes # 0.8 L (1.0-4.8) k/uL ESR 66 H (0-30) mm/Hr Sodium 136 L (137-145) mmol/L BUN 19 H (7-17) mg/dL Glucose 100 H (74-99) mg/dL C-Reactive Protein 2.3 H (<1.0) mg/dL Total Protein 9.3 H (6.3-8.2) g/dL Albumin 3.4 L (3.5-5.0) g/dL Urine Appearance Cloudy H (Clear) Urine Protein Trace H (Negative) Urine Nitrite Positive H (Negative) Ur Leukocyte Esterase Small H (Negative) Urine WBC 24 H (0-5) /hpf Calcium Oxalate Crystal Few H (None) /hpf Urine Bacteria Moderate H (None) /hpf Urine Mucus Occasional H (None) /hpf Assessment and Plan Assessment: 1. Confusion/altered mental status; likely toxic metabolic encephalopathy related to UTI/infected decubitus ulcer -Patient is awake and alert and at baseline per family 2. UTI; patient has been placed on Rocephin 1 g IV daily; we will monitor blood cultures and urine culture; further recommendations once culture results are av ailable 3. Sacral decubitus ulcer; no osteomyelitis; will consult ID for further recommendations 4. Uterine cancer with new cannonball pulmonary metastases; patient has known history of uterine cancer with metastatic disease; CT of the abdomen pelvis reveals new cannonball pulmonary metastases; will consult oncology 5. Hypertension; metoprolol 25 mg 3 times daily 6. Hyperlipidemia; Lipitor 40 mg daily 7. Dementia with behavioral disturbance; patient takes Haldol 2.5 mg nightly, Cogentin 1 mg twice daily 8. Degenerative joint disease/back pain; Celebrex 100 mg daily; tramadol 50 mg every 4 hours as needed VTE prophylaxis; SCDs/subcu heparin CODE STATUS; full code
[2024-06-14] MEDS: VANCOMYCIN 1,000 MG in SODIUM CHLORIDE 0.9% 250 ML IVPB ONE (16:45)
[2024-06-14] MEDS: haloperidoL 5 MG TAB PO SCH (21:30)
[2024-06-14] MEDS: METOPROLOL TARTRATE 25 MG TAB PO SCH (21:30)
[2024-06-14] MEDS: BENZTROPINE MESYLATE 1 MG TAB PO SCH (21:31)
[2024-06-14] MEDS: HEPARIN SODIUM,PORCINE 5,000 UNIT/ML 1 ML VIAL SQ SCH (21:37)
[2024-06-15] MEDS: KETOROLAC 15 MG/ML 1 ML VIAL IVP PRN (05:46)
[2024-06-15] MEDS: VANCOMYCIN 1,000 MG in SODIUM CHLORIDE 0.9% 250 ML IVPB SCH (05:56)
[2024-06-15 07:57] LABS: African American GFR (CKD) >90 (>60 ml/min/1.73 sqM); Anion Gap 7 mmol/L; Blood Urea Nitrogen 13 mg/dL (7-17); Calcium 9.6 mg/dL (8.4-10.2); Carbon Dioxide 24 mmol/L (22-30); Chloride 104 mmol/L (98-107); Glucose 96 mg/dL (74-99); Non-African American GFR(CKD) >90 (>60 ml/min/1.73 sqM); Potassium 4.3 mmol/L (3.5-5.1); Sodium 135 mmol/L (137-145)
--- NOTE | 2024-06-15 08:08 | P.CONS ---
History of Present Illness - Reason for Consult Consult date: 06/14/24 Possible infected sacral pressure ulcer Requesting physician: Nidia Buenrostro - Chief Complaint Increasing confusion and worsening sacral wound x days - History of Present Illness Patient is a 78-year-old -[place] female with a past medical history significant for diabetes mellitus hypertension osteoarthritis dementia CVA TIA previous episode of sacral osteomyelitis that has been treated with prolonged course of IV antibiotic therapy and did have subsequent healing of the wound patient has not been brought back to the hospital concern for confusion left-sided rib pain and sacral wound plan with the patient seem to be getting more confused over the last few days as reported by the son at the bedside and also noticed to have reopening of her sacral wound and apparently there has been some foul-smelling drainage from right over the last few days with the send the patient has been reported to the hospital on arrival to the ER patient was afebrile and no fever have been called subsequently patient was not tachycardic hypotensive or hypoxic white count was 6.3 creatinine 0.53 liver enzymes are normal urine has been mildly positive patient did have chest x-ray new cannonball pulmonary metastasis suspicious for metastatic endometrial carcinoma given findings on the CT patient also have abdominal pelvis CT midline sacral decubitus ulcer the ulcer crater appears larger and remains full-thickness to the underlying coccyx upon loss similar to the previous versus minimally increased no gnoc progressive ostomy destruction at this time abnormal endometr ial thickening new cannonball pulmonary metastasis patient was started on vancomycin and Rocephin infectious disease was consulted for further management of antibiotic therapy Review of Systems Positive point and negatives has been mentioned in the HPI, complete review of systems was performed and all other systems are negative Past Medical History Past Medical History: CVA/TIA, Dementia, Diabetes Mellitus, Hypertension, Osteoa rthritis (OA) Additional Past Medical History / Comment(s): Pt states she is on an antibiotic for ear infection/throat infection at this time, TIA which affected speech, pt denies HTN but it is documented in past medical hx, diet controlled diabetes History of Any Multi-Drug Resistant Organisms: None Reported Past Surgical History: Orthopedic Surgery Additional Past Surgical History / Comment(s): I&D tooth abscess, left trigger finger surgery Past Anesthesia/Blood Transfusion Reactions: No Reported Reaction Past Psychological History: Anxiety, Bipolar, Depression Smoking Status: Never smoker Past Alcohol Use History: None Reported Past Drug Use History: None Reported - Past Family History Father Family Medical History: No Reported History Mother Family Medical History: No Reported History Medications and Allergies Home Medications Medication Instructions Recorded Confirmed Type Famotidine [Pepcid] 20 mg PO DAILY 07/29/23 06/14/24 History Metoprolol Tartrate [Lopressor] 25 mg PO TID #0 08/09/23 06/14/24 Rx haloperidoL [Haldol] 2.5 mg PO HS #3 tab 08/09/23 06/14/24 Rx Atorvastatin [Lipitor] 40 mg PO DAILY 06/14/24 06/14/24 History Benztropine Mesylate [Cogentin] 1 mg PO BID 06/14/24 06/14/24 History Celecoxib [CeleBREX] 100 mg PO DAILY 06/14/24 06/14/24 History Ondansetron Odt [Zofran Odt] 4 mg PO Q8HR PRN 06/14/24 06/14/24 History traMADol HCL 25 - 50 mg PO Q4H PRN 06/14/24 06/14/24 History Allergies Allergy/AdvReac Type Severity Reaction Status Date / Time metformin Allergy Unknown Verified 06/14/24 07:55 Sulfa (Sulfonamide Allergy Unknown Verified 06/14/24 07:55 Antibiotics) Physical Exam Vitals: Vital Signs Temp Pulse Resp BP Pulse Ox 06/14/24 13:54 89 18 130/54 99 06/14/24 07:52 97.6 F 86 16 124/74 97 Intake and Output 06/13/24 06/14/24 06/14/24 22:59 06:59 14:59 Other: Weight 57.606 kg GENERAL DESCRIPTION: Middle-aged male lying in bed, no distress. No tachypnea or accessory muscle of respiration use. HEENT: Shows Pallor , no scleral icterus. Oral mucous membrane is dry. No pharyngeal erythema or thrush NECK: Trachea central, no thyromegaly. LUNGS: Unlabored breathing. Clear to auscultation anteriorly. No wheeze or crackle. HEART: S1, S2, regular rate and rhythm. No loud murmur ABDOMEN: Soft, no tenderness , guarding or rigidity, no organomegaly EXTREMITIES: No edema of feet. SKIN: Patient did have a sacral pressure ulcer some foul-smelling drainage wound was not palpable though NEUROLOGICAL: The patient is awake, mood and affect normal. Results CBC & Chem 7: 06/14/24 08:57 06/15/24 06:42 Labs: Abnormal Lab Results - Last 24 Hours (Table) 06/14/24 06/14/24 06/14/24 Range/Units 08:57 08:57 10:51 RBC 2.78 L (3.80-5.40) m/uL Hgb 8.4 L (11.4-16.0) gm/dL Hct 26.9 L (34.0-46.0) % RDW 16.3 H (11.5-15.5) % Lymphocytes # 0.8 L (1.0-4.8) k/uL Sodium 136 L (137-145) mmol/L BUN 19 H (7-17) mg/dL Glucose 100 H (74-99) mg/dL C-Reactive Protein 2.3 H (<1.0) mg/dL Total Protein 9.3 H (6.3-8.2) g/dL Albumin 3.4 L (3.5-5.0) g/dL Urine Appearance Cloudy H (Clear) Urine Protein Trace H (Negative) Urine Nitrite Positive H (Negative) Ur Leukocyte Esterase Small H (Negative) Urine WBC 24 H (0-5) /hpf Calcium Oxalate Crystal Few H (None) /hpf Urine Bacteria Moderate H (None) /hpf Urine Mucus Occasional H (None) /hpf Assessment and Plan (1) Sacral decubitus ulcer Current Visit: Yes Status: Acute Code(s): L89.159 - PRESSURE ULCER OF SACRAL REGION, UNSPECIFIED STAGE SNOMED Code(s): 322272834 (2) Urinary tract infection Current Visit: Yes Status: Acute Code(s): N39.0 - URINARY TRACT INFECTION, SITE NOT SPECIFIED SNOMED Code(s): 03515892 Plan: 1patient presented to hospital with confusion which is likely multifactorial in this patient who did have a positive UA and also noticed to have worsening of her sacral wound concerning for sacral wound infection and possible osteo on the basis of the CT however the wound was not palpable on clinical examination. 2blood urine and sacral wound culture has been obtained results will be followed. 3local wound care to the sacral wound with Aquacel silver dressing change every 48 hours. 4continue the patient on vancomycin pharmacy to dose and Rocephin pending cu lture finalization. Son at the bedside question concern of ulcer. We will follow on clinical condition and cultures to further adjust medication if needed Thank you for this consultation we will follow the patient along with you Dictation was produced using meets dictation software. please excuse any grammatical, word or spelling errors. Time with Patient: Greater than 30
[2024-06-15] MEDS: FAMOTIDINE 20 MG TAB PO SCH (10:12)
[2024-06-15] MEDS: PANTOPRAZOLE 40 MG/10 ML VIAL IV SCH (10:13)
[2024-06-15] MEDS: ATORVASTATIN 40 MG TAB PO SCH (10:13)
[2024-06-15 10:27] LABS: Basophils # (A) 0.01 X 10*3/uL (0.00-0.10); Basophils % (A) 0.2 %; Eosinophils # (A) 0.29 X 10*3/uL (0.04-0.35); HCT 25.3 % (37.2-46.3); HGB 7.8 g/dL (12.0-15.0); Lymphocytes % (A) 8.6 %; MCH 30.7 pg (27.0-32.0); MCHC 30.8 g/dL (32.0-37.0); MCV 99.6 FL (80.0-97.0); Monocytes # (A) 0.52 X 10*3/uL (0.20-1.00); Monocytes % (A) 8.9 %; NRBC Per 100 WBC 0 X 10*3/uL (0.00-0.01); Neutrophils # (A) 4.43 X 10*3/uL (1.80-7.70); Neutrophils % (A) 76.1 %; Platelet Count 329 X 10*3/uL (140-440); RBC 2.54 X 10*6/uL (4.10-5.20); RDW 16.5 % (11.5-14.5); WBC 5.82 X 10*3/uL (4.50-10.00)
[2024-06-15] MEDS ORDERED: RX INFO: IV CONTRAST WAS GIVEN 1 EACH MISC MISCELLANE PRN (12:20)
--- NOTE | 2024-06-15 17:16 | CT ---
EXAMINATION TYPE: CT chest w con CT DLP: 559 mGycm, Automated exposure control for dose reduction was used. DATE OF EXAM: 06/15/2024 3:49 PM COMPARISON: Chest radiograph from 06/14/2024 CLINICAL INDICATION: Female, 78 years old with history of lung mass; PHH, Lung Mass TECHNIQUE: Multiple axial images were obtained through the chest. Sagittal and coronal reformats were created for review. Contrast used:100 mL of Isovue 300 with IV Contrast (None if empty) Oral contrast used: (None if empty) FINDINGS: LUNGS/ PLEURA: The lung parenchyma appears unremarkable. Scattered pulmonary nodules compatible with metastatic disease seen throughout the lungs is greater than 100 nodules throughout the lungs larges t in the left lower lobe measuring 25 mm the left upper lobe measuring 22 mm in the right lower lobe measuring 31 mm in the right upper lobe measuring 18mm AIRWAY: Patent and unremarkable. HEART: Size within normal limits. MEDIASTINUM: No gross evidence of adenopathy. VASCULATURE: No aortic aneurysm. MUSCULOSKELETAL: No acute osseous abnormalities, fixation changes to the spine partially visualized a ppear intact. Multilevel degeneration changes with disc space narrowing at C5 formation and facet harshad nt arthropathy. SOFT TISSUES/LYMPH NODES: Unremarkable. LOWER NECK: No significant findings. UPPER ABDOMEN: No significant findings. IMPRESSION: Diffuse pulmonary nodules/masses most compatible with metastatic disease. Correlate with history of malignancy. [facility], , 06/15/2024 5:14 PM
[2024-06-15] MEDS: MELOXICAM 7.5 MG TAB PO SCH (17:35)
[2024-06-15] MEDS: THIAMINE 100 MG TAB PO SCH (17:36)
--- NOTE | 2024-06-15 20:31 | P.CONS ---
History of Present Illness - Reason for Consult Consult date: 06/15/24 metastatic disease Requesting physician: Nidia Buenrostro - Chief Complaint altered mental status, sacral wound - History of Present Illness Patient is a 78 year old female who presented to the ER for confusion and sacral wound. Consult was placed for lung mets. HPI was limited as patient is a poor historian. Spoke with patient's son after todays visit, who provided oncology history. 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 Since, patient moved with her son, and receives oncology care in [place], [place], and follows with medical oncology and radiation oncology, Dr. Powers and Dr. Encarnacion. Patient has completed 27 of 28 fractions of RT. She was not felt to be a good surgical candidate, and pt had declined surgical intervention. Once RT is complete they are considering systemic treatment. On admission CT AP showed abnormal endometrial thickening up to 2.0 cm, shows partial improvement compared to 2.9cm previously. Pulmonary metastases measuring up to 3.1 cm. CXR revealed new cannonball pulmonary metastases. Son states pt had CT chest in the last 1-2 months which did not show metastasis at that time. Patient found to have UTI on admit, rocephin started. Also being treated for sacral decubitus ulcer and started on vancomycin. ID following. Admit labs reviewed, WBC 6.3, hgb 8.4, plts 401. Creatinine 0.53, GFR >90, LFTs/ biirubin WNL. At todays visit, pt denies chest pain and SOB, but is c/o pain at wound site on her sacrum. Review of Systems 10 point ROS is negative except as stated in the HPI Past Medical History Past Medical History: CVA/TIA, Dementia, Diabetes Mellitus, Hypertension, Osteoarthritis (OA) Additional Past Medical History / Comment(s): Pt states she is on an antibiotic for ear infection/throat infection at this time, TIA which affected speech, pt denies HTN but it is documented in past medical hx, diet controlled diabetes History of Any Multi-Drug Resistant Organisms: None Reported Past Surgical History: Orthopedic Surgery Additional Past Surgical History / Comment(s): I&D tooth abscess, left trigger finger surgery Past Anesthesia/Blood Transfusion Reactions: No Reported Reaction Past Psychological History: Anxiety, Bipolar, Depression Smoking Status: Never smoker Past Alcohol Use History: None Reported Past Drug Use History: None Reported - Past Family History Father Family Medical History: No Reported History Mother Family Medical History: No Reported History Medications and Allergies Home Medications Medication Instructions Recorded Confirmed Type Famotidine [Pepcid] 20 mg PO DAILY 07/29/23 06/14/24 History Metoprolol Tartrate [Lopressor] 25 mg PO TID #0 08/09/23 06/14/24 Rx haloperidoL [Haldol] 2.5 mg PO HS #3 tab 08/09/23 06/14/24 Rx Atorvastatin [Lipitor] 40 mg PO DAILY 06/14/24 06/14/24 History Benztropine Mesylate [Cogentin] 1 mg PO BID 06/14/24 06/14/24 History Celecoxib [CeleBREX] 100 mg PO DAILY 06/14/24 06/14/24 History Ondansetron Odt [Zofran Odt] 4 mg PO Q8HR PRN 06/14/24 06/14/24 History traMADol HCL 25 - 50 mg PO Q4H PRN 06/14/24 06/14/24 History Allergies Allergy/AdvReac Type Severity Reaction Status Date / Time metformin Allergy Unknown Verified 06/14/24 07:55 Sulfa (Sulfonamide Allergy Unknown Verified 06/14/24 07:55 Antibiotics) Physical Exam Vitals: Vital Signs Temp Pulse Pulse Resp BP BP Pulse Ox 06/15/24 08:00 97.8 F 86 20 135/66 99 06/15/24 02:07 90 18 136/67 98 06/14/24 17:00 78 18 130/54 98 06/14/24 13:54 89 18 130/54 99 Intake and Output 06/14/24 06/15/24 06/15/24 22:59 06:59 14:59 Intake Total 118 118 Balance 118 118 Intake: Oral 118 118 - Constitutional General appearance: no acute distress - EENT Eyes: anicteric sclerae, EOMI ENT: hearing grossly normal - Respiratory breathing is even and unlabored - Cardiovascular well perfused - Gastrointestinal midline incision. Palpable 5cm x 5cm irregular density along midline incision, l ikely scar tissue General gastrointestinal: soft, no tenderness - Integumentary Integumentary: no cyanotic, no jaundiced - Musculoskeletal Musculoskeletal: generalized weakness Results CBC & Chem 7: 09/16/24 06:42 06/15/24 06:42 Labs: Abnormal Lab Results - Last 24 Hours (Table) 06/14/24 06/14/24 06/14/24 Range/Units 08:57 08:57 10:51 RBC (4.10-5.20) X 10*6/uL Hgb (12.0-15.0) g/dL Hct (37.2-46.3) % MCV (80.0-97.0) FL MCHC (32.0-37.0) g/dL RDW (11.5-14.5) % MPV (9.5-12.2) FL Immature Gran # (0.00-0.04) X 10*3/uL Lymphocytes # (0.90-5.00) X 10*3/uL ESR 66 H (0-30) mm/Hr Sodium 136 L (137-145) mmol/L BUN 19 H (7-17) mg/dL Creatinine (0.52-1.04) mg/dL Glucose 100 H (74-99) mg/dL C-Reactive Protein 2.3 H (<1.0) mg/dL Total Protein 9.3 H (6.3-8.2) g/dL Albumin 3.4 L (3.5-5.0) g/dL Urine Appearance Cloudy H (Clear) Urine Protein Trace H (Negative) Urine Nitrite Positive H (Negative) Ur Leukocyte Esterase Small H (Negative) Urine WBC 24 H (0-5) /hpf Calcium Oxalate Crystal Few H (None) /hpf Urine Bacteria Moderate H (None) /hpf Urine Mucus Occasional H (None) /hpf 06/15/24 06/15/24 Range/Units 06:42 06:42 RBC 2.54 L (4.10-5.20) X 10*6/uL Hgb 7.8 L (12.0-15.0) g/dL Hct 25.3 L (37.2-46.3) % MCV 99.6 H (80.0-97.0) FL MCHC 30.8 L (32.0-37.0) g/dL RDW 16.5 H (11.5-14.5) % MPV 9.0 L (9.5-12.2) FL Immature Gran # 0.07 H (0.00-0.04) X 10*3/uL Lymphocytes # 0.50 L (0.90-5.00) X 10*3/uL ESR (0-30) mm/Hr Sodium 135 L (137-145) mmol/L BUN (7-17) mg/dL Creatinine 0.46 L (0.52-1.04) mg/dL Glucose (74-99) mg/dL C-Reactive Protein (<1.0) mg/dL Total Protein (6.3-8.2) g/dL Albumin (3.5-5.0) g/dL Urine Appearance (Clear) Urine Protein (Negative) Urine Nitrite (Negative) Ur Leukocyte Esterase (Negative) Urine WBC (0-5) /hpf Calcium Oxalate Crystal (None) /hpf Urine Bacteria (None) /hpf Urine Mucus (None) /hpf Microbiology - Last 24 Hours (Table) 06/14/24 10:23 Gram Stain - Preliminary Buttock Wound Culture - Preliminary Gram Neg Bacilli Chest x-ray: report reviewed CT scan - abdomen: report reviewed CT scan - pelvis: report reviewed Assessment and Plan (1) Confusion Current Visit: Yes Status: Acute Code(s): R41.0 - DISORIENTATION, UNSPECI FIED SNOMED Code(s): 287238368 (2) Sacral decubitus ulcer Current Visit: Yes Status: Acute Code(s): L89.159 - PRESSURE ULCER OF SACRAL REGION, UNSPECIFIED STAGE SNOMED Code(s): 875022293 (3) Urinary tract infection Current Visit: Yes Status: Acute Code(s): N39.0 - URINARY TRACT INFECTION, SITE NOT SPECIFIED SNOMED Code(s): 91307295 (4) Metastatic cancer Current Visit: Yes Status: Acute Priority: High Code(s): C79.9 - SECONDARY MALIGNANT NEOPLASM OF UNSPECIFIED SITE SNOMED Code(s): 094113950 Plan: Confusion, UTI: -UA suspicious for UTI. Urine culture pending -Rocephin started Sacral decubitis ulcer: -ID following -Wound culture positive for gram negative bacilli -Continues on IV abx with Rocephin and Vancomycin -Wound care consult placed Malignant sarcomatoid carcinoma of endometrium: -Receives oncological care in [place], [place]. Follows with medical oncology and radiation oncology, Dr. Powers and Dr. Encarnacion -Has completed 27 of 28 fractions of RT -Was not felt to be a good surgical candidate, and pt had declined surgical intervention -Considering systemic treatment once RT is complete -CT AP showing abnormal endometrial thickening up to 2.0 cm, shows partial improvement compared to 2.9cm previously. Pulmonary metastases measuring up to 3.1 cm. Son states pt had CT chest in the last 1-2 months which did not show metastasis at that time. Will request records from [facility] where imaging was obtained -CT chest ordered for further visualization of noted mass -Patient will f/u with her primary medical and radiation oncologist upon discharge for further management/treatment attests: I have seen and examined patient, performed H&P, developed impression and plan of care. Discussed with dictator. Agree with documentation, dictated as a scribe
[2024-06-15] MEDS: HYDROcodone/APAP 5-325MG 1 EACH TAB PO PRN (20:36)
--- NOTE | 2024-06-16 02:49 | PN ---
PROGRESS NOTE DATE OF SERVICE: 06/15/2024 SUBJECTIVE: This is a year-old woman who was admitted with sacral wound and confusion, is being closely monitored. No chest pain. No palpitation. The patient is on broad- spectrum IV antibiotics. OBJECTIVE: VITAL SIGNS: Pulse is 90, blood pressure 130/64, respirations 18. CHEST: Clear to auscultation. CARDIOVASCULAR: S1, S2. ABDOMEN: Soft. Sacral decubitus ulcer. LABORATORY DATA: Hemoglobin 7.8. Cultures showed gram-negative bacilli. ASSESSMENT: 1. Sacral decubitus ulcer with infection. 2. Change in mental status and confusion. 3. Metabolic encephalopathy. 4. Possible urinary tract infection. 5. Uterine cancer with a new cannibal pulmonary mental status. 6. Hyperlipidemia. 7. Dementia. 8. Multiple medical issues. RECOMMENDATIONS AND DISCUSSION: I recommend to continue current management. Continue symptomatic treatment. Continue with antibiotics. ID consultation. Resume home medications. DVT prophylaxis. Guarded prognosis. Further recommendations to follow. MMHEYDIL / IJN: [id number] / COLBY
--- NOTE | 2024-06-16 08:37 | P.PN ---
Subjective Progress Note Date: 06/15/24 Principal diagnosis: Reason for follow-up is UTI and infected sacral ulcer Patient is a 78-year-old -[place] female with a past medical history significant for diabetes mellitus hypertension osteoarthritis dementia CVA TIA previous episode of sacral osteomyelitis, recent diagnosis of metastatic endometrial cancer has been brought into the hospital concerning for confusion and worsening sacral wound. On today's evaluation that is 06/15/2024, patient is more awake and alert today, has been afebrile, patient is breathing comfortably and is currently on room air, patient denies having any significant cough no chest pain shortness of breath, patient denies nausea vomiting or diarrhea and no abdominal pain, pain to the sacral wound Decreased intensity. Patient white count is 5.82, creatinine 0.46 cultures currently pending Objective - Vital Signs Vital signs: Vital Signs Temp 97.8 F 06/15/24 08:00 Pulse 86 06/15/24 08:00 Resp 20 06/15/24 08:00 BP 135/66 06/15/24 08:00 Pulse Ox 99 06/15/24 08:00 FiO2 Intake & Output 06/14/24 06/15/24 06/15/24 18:59 06:59 18:59 Intake Total 118 118 Balance 118 118 Weight 57.606 kg Intake: Oral 118 118 - Exam GENERAL DESCRIPTION: An elderly male lying in bed in no distress RESPIRATORY SYSTEM: Unlabored breathing , decreased breath sounds at bases HEART: S1 S2 regular rate and rhythm , ABDOMEN: Soft , no tenderness, patient did have a deep sacral ulcer no surro unding redness EXTREMITIES: No edema feet - Labs CBC & Chem 7: 06/15/24 06:42 06/15/24 06:42 Labs: Abnormal Lab Results - Last 24 Hours (Table) 06/14/24 06/14/24 06/15/24 Range/Units 08:57 08:57 06:42 RBC (4.10-5.20) X 10*6/uL Hgb (12.0-15.0) g/dL Hct (37.2-46.3) % MCV (80.0-97.0) FL MCHC (32.0-37.0) g/dL RDW (11.5-14.5) % MPV (9.5-12.2) FL Immature Gran # (0.00-0.04) X 10*3/uL Lymphocytes # (0.90-5.00) X 10*3/uL ESR 66 H (0-30) mm/Hr Sodium 135 L (137-145) mmol/L Creatinine 0.46 L (0.52-1.04) mg/dL Urine Appearance Cloudy H (Clear) Urine Protein Trace H (Negative) Urine Nitrite Positive H (Negative) Ur Leukocyte Esterase Small H (Negative) Urine WBC 24 H (0-5) /hpf Calcium Oxalate Crystal Few H (None) /hpf Urine Bacteria Moderate H (None) /hpf Urine Mucus Occasional H (None) /hpf 06/15/24 Range/Units 06:42 RBC 2.54 L (4.10-5.20) X 10*6/uL Hgb 7.8 L (12.0-15.0) g/dL Hct 25.3 L (37.2-46.3) % MCV 99.6 H (80.0-97.0) FL MCHC 30.8 L (32.0-37.0) g/dL RDW 16.5 H (11.5-14.5) % MPV 9.0 L (9.5-12.2) FL Immature Gran # 0.07 H (0.00-0.04) X 10*3/uL Lymphocytes # 0.50 L (0.90-5.00) X 10*3/uL ESR (0-30) mm/Hr Sodium (137-145) mmol/L Creatinine (0.52-1.04) mg/dL Urine Appearance (Clear) Urine Protein (Negative) Urine Nitrite (Negative) Ur Leukocyte Esterase (Negative) Urine WBC (0-5) /hpf Calcium Oxalate Crystal (None) /hpf Urine Bacteria (None) /hpf Urine Mucus (None) /hpf Microbiology - Last 24 Hours (Table) 06/14/24 10:23 Gram Stain - Preliminary Buttock Wound Culture - Preliminary Gram Neg Bacilli Assessment and Plan (1) Sacral decubitus ulcer Current Visit: Yes Status: Acute Code(s): L89.159 - PRESSURE ULCER OF SACRAL REGION, UNSPECIFIED STAGE SNOMED Code(s): 625832041 (2) Urinary tract infection Current Visit: Yes Status: Acute Code(s): N39.0 - URINARY TRACT INFECTION, SITE NOT SPECIFIED SNOMED Code(s): 01711545 Plan: 1patient presented to hospital with confusion which is likely multifactorial in this patient who did have a positive UA and also noticed to have worsening of her sacral wound concerning for sacral wound infection and possible osteo on the basis of the CT however the wound was not palpable on clinical examination. 2blood urine and sacral wound culture has been obtained, cultures are currently pending 3local wound care to the sacral wound with Aquacel silver dressing change every 48 hours discussed with the nursing staff. 4patient to continue the patient on vancomycin pharmacy to dose and Rocephin while waiting for the culture to finalize Dictation was produced using [employer] dictation software. please excuse any grammatical, word or spelling errors. Time with Patient: Less than 30
[2024-06-16] MEDS: FOLIC ACID 1 MG TAB PO SCH (09:35)
[2024-06-16] MEDS: MULTIVITAMINS, THERA 1 EACH TAB PO SCH (09:35)
[2024-06-16] MEDS: PIPERACILLIN-TAZOBACTAM 3.375 GM in SODIUM CHLORIDE 0.9% 100 ML IVPB SCH (09:42)
[2024-06-16 11:01] LABS: Basophils # (A) 0.02 X 10*3/uL (0.00-0.10); Basophils % (A) 0.4 %; Eosinophils # (A) 0.24 X 10*3/uL (0.04-0.35); Eosinophils % (A) 4.4 %; HGB 7.1 g/dL (12.0-15.0); Lymphocytes % (A) 12.8 %; MCH 30.2 pg (27.0-32.0); MCHC 30.9 g/dL (32.0-37.0); MCV 97.9 FL (80.0-97.0); Mean Platelet Volume 8.9 FL (9.5-12.2); Monocytes # (A) 0.54 X 10*3/uL (0.20-1.00); Monocytes % (A) 9.9 %; NRBC Per 100 WBC 0 X 10*3/uL (0.00-0.01); Neutrophils # (A) 3.93 X 10*3/uL (1.80-7.70); Neutrophils % (A) 71.6 %; Platelet Count 279 X 10*3/uL (140-440); RBC 2.35 X 10*6/uL (4.10-5.20); RDW 16.4 % (11.5-14.5); WBC 5.48 X 10*3/uL (4.50-10.00)
[2024-06-16 11:13] LABS: BUN/Creat Ratio 13.83 Ratio (12.00-20.00); Blood Urea Nitrogen 8.3 mg/dL (9.0-27.0); Calcium 9.3 mg/dL (8.7-10.3); Carbon Dioxide 21.1 mmol/L (21.6-31.8); Chloride 106 mmol/L (96-109); Glucose 90 mg/dL (70-110); Sodium 136 mmol/L (135-145)
[2024-06-16 12:17] VITALS: BMI 21.8
--- NOTE | 2024-06-16 12:23 | P.CONS ---
History of Present Illness - Reason for Consult Consult date: 06/16/24 wound care - History of Present Illness This is a 78-year-old patient known to the wound care center with a stage III pressure ulcer to the sacrum. Patient previously had a negative pressure wound VAC on however it was limiting her mobility and family decided to discontinue the wound VAC. Patient had been following in the wound care center until approximately January when she then went to stay with her son related to ovarian cancer treatment. At this time they have been utilizing absorptive silver rope changing weekly. Patient has history of dementia. Diabetes Review Of Systems: Constitutional: No fever, no chills, no night sweats. No weight change. No weakness, fatigue or lethargy. No daytime sleepiness. Integumentary:reports wounds, no lesions. No rash or pruritus. No unusual bruising. No change in hair or nails. Physical exam: General Appearance: Alert, cooperative, no distress, appears stated age. Skin: See HPI all other Skin color, texture, tugor normal, no rashes or lesions. Neurologic: Alert oriented x3 Assessment: 1. Stage III pressure ulcer sacrum 2. Diabetes with skin ulceration Plan: 1.Apply absorptive silver rope saline moistened gauze and bordered foam to the site. Change Saturday. Turn patient every 2 hours. Utilize a air-filled cushion while sitting. Avoid sitting for prolonged periods. Patient would benefit for advanced wound care and wound care setting will be happy to see her upon discharge. Thank you for the consultation any questions please contact the wound care center DNP note has been reviewed and discussed with Dr. Lim and the impression and plan of care has been directed as dictated. Past Medical History Past Medical History: CVA/TIA, Dementia, Diabetes Mellitus, Hypertension, Osteoarthritis (OA) Additional Past Medical History / Comment(s): Pt states she is on an antibiotic for ear infection/throat infection at this time, TIA which affected speech, pt denies HTN but it is documented in past medical hx, diet controlled diabetes History of Any Multi-Drug Resistant Organisms: None Reported Past Surgical History: Orthopedic Surgery Additional Past Surgical History / Comment(s): I&D tooth abscess, left trigger finger surgery Past Anesthesia/Blood Transfusion Reactions: No Reported Reaction Past Psychological History: Anxiety, Bipolar, Depression Smoking Status: Never smoker Past Alcohol Use History: None Reported Past Drug Use History: None Reported - Past Family History Father Family Medical History: No Reported History Mother Family Medical History: No Reported History Medications and Allergies Home Medications Medication Instructions Recorded Confirmed Type Famotidine [Pepcid] 20 mg PO DAILY 07/29/23 06/14/24 History Metoprolol Tartrate [Lopressor] 25 mg PO TID #0 08/09/23 06/14/24 Rx haloperidoL [Haldol] 2.5 mg PO HS #3 tab 08/09/23 06/14/24 Rx Atorvastatin [Lipitor] 40 mg PO DAILY 06/14/24 06/14/24 History Benztropine Mesylate [Cogentin] 1 mg PO BID 06/14/24 06/14/24 History Celecoxib [CeleBREX] 100 mg PO DAILY 06/14/24 06/14/24 History Ondansetron Odt [Zofran Odt] 4 mg PO Q8HR PRN 06/14/24 06/14/24 History traMADol HCL 25 - 50 mg PO Q4H PRN 06/14/24 06/14/24 History Allergies Allergy/AdvReac Type Severity Reaction Status Date / Time metformin Allergy Unknown Verified 06/14/24 07:55 Sulfa (Sulfonamide Allergy Unknown Verified 06/14/24 07:55 Antibiotics) Physical Exam Vitals: Vital Signs Temp Pulse Resp BP Pulse Ox 06/16/24 08:00 98 F 88 17 130/66 97 06/16/24 01:30 98.3 F 84 16 136/64 97 06/15/24 20:00 18 06/15/24 19:09 98.0 F 76 18 131/71 99 06/15/24 14:00 98.1 F 85 16 137/62 98 Intake and Output 06/15/24 06/16/24 06/16/24 22:59 06:59 14:59 Output Total 1100 1200 Balance -1100 -1200 Output: Urine 1100 1200 Other: Voiding Method Indwelling Catheter Indwelling Catheter Weight 57.606 kg 57.606 kg Results CBC & Chem 7: 06/16/24 06:45 06/16/24 06:45 Labs: Abnormal Lab Results - Last 24 Hours (Table) 06/16/24 06/16/24 Range/Units 06:45 06:45 RBC 2.35 L (4.10-5.20) X 10*6/uL Hgb 7.1 L (12.0-15.0) g/dL Hct 23.0 L (37.2-46.3) % MCV 97.9 H (80.0-97.0) FL MCHC 30.9 L (32.0-37.0) g/dL RDW 16.4 H (11.5-14.5) % MPV 8.9 L (9.5-12.2) FL Immature Gran # 0.05 H (0.00-0.04) X 10*3/uL Lymphocytes # 0.70 L (0.90-5.00) X 10*3/uL Carbon Dioxide 21.1 L (21.6-31.8) mmol/L BUN 8.3 L (9.0-27.0) mg/dL Microbiology - Last 24 Hours (Table) 06/14/24 10:23 Gram Stain - Preliminary Buttock Wound Culture - Preliminary Proteus mirabilis 06/14/24 08:57 Urine Culture - Preliminary Urine,Voided Gram Neg Bacilli Assessment and Plan (1) Pressure ulcer of sacral region, stage 3 Current Visit: No Status: Acute Code(s): L89.153 - PRESSURE ULCER OF SACRAL REGION, STAGE 3 SNOMED Code(s): 34468461976470 (2) Type 2 diabetes mellitus with other skin ulcer Current Visit: No Status: Acute Code(s): E11.622 - TYPE 2 DIABETES MELLITUS WITH OTHER SKIN ULCER; L98.499 - NON-PRESSURE CHRONIC ULCER OF SKIN OF SITES W UNSP SEVERITY SNOMED Code(s): 232501165558075
--- NOTE | 2024-06-16 13:18 | P.PN ---
Subjective Progress Note Date: 06/16/24 Principal diagnosis: Reason for follow-up is UTI and infected sacral ulcer Patient is a 78-year-old -[place]er female with a past medical history significant for diabetes mellitus hypertension osteoarthritis dementia CVA TIA previous episode of sacral osteomyelitis, recent diagnosis of metastatic endometrial cancer has been brought into the hospital concerning for confusion and worsening sacral wound. On today's evaluation that is 06/16/2024, Patient is afebrile this morning patient denies having any chest pain shortness of breath or cough, the patient is breathing comfortably on room air, patient denies any abdominal pain no diarrhea no nausea no vomiting, patient mention feeling slightly better pain to the sacral area is controlled. Patient white count is 5.48, creatinine 0.6 culture currently growing gram- negative Objective - Vital Signs Vital signs: Vital Signs Temp 98 F 06/16/24 08:00 Pulse 88 06/16/24 08:00 Resp 17 06/16/24 08:00 BP 130/66 06/16/24 08:00 Pulse Ox 97 06/16/24 08:00 FiO2 Intake & Output 06/15/24 06/16/24 06/16/24 18:59 06:59 18:59 Intake Total 118 Output Total 1100 1200 Balance -982 -1200 Weight 57.606 kg Intake: Oral 118 Output: Urine 1100 1200 Other: Voiding Method Indwelling Catheter Indwelling Catheter - Exam GENERAL DESCRIPTION: An elderly male lying in bed in no distress RESPIRATORY SYSTEM: Unlabored breathing , decreased breath sounds at bases HEART: S1 S2 regular rate and rhythm , ABDOMEN: Soft , no tenderness, EXTREMITIES: No edema feet - Labs CBC & Chem 7: 06/16/24 06:45 06/16/24 06:45 Labs: Abnormal Lab Results - Last 24 Hours (Table) 06/16/24 06/16/24 Range/Units 06:45 06:45 RBC 2.35 L (4.10-5.20) X 10*6/uL Hgb 7.1 L (12.0-15.0) g/dL Hct 23.0 L (37.2-46.3) % MCV 97.9 H (80.0-97.0) FL MCHC 30.9 L (32.0-37.0) g/dL RDW 16.4 H (11.5-14.5) % MPV 8.9 L (9.5-12.2) FL Immature Gran # 0.05 H (0.00-0.04) X 10*3/uL Lymphocytes # 0.70 L (0.90-5.00) X 10*3/uL Carbon Dioxide 21.1 L (21.6-31.8) mmol/L BUN 8.3 L (9.0-27.0) mg/dL Microbiology - Last 24 Hours (Table) 06/14/24 10:23 Gram Stain - Preliminary Buttock Wound Culture - Preliminary Proteus mirabilis 06/14/24 08:57 Urine Culture - Preliminary Urine,Voided Gram Neg Bacilli Assessment and Plan (1) Sacral decubitus ulcer Current Visit: Yes Status: Acute Code(s): L89.159 - PRESSURE ULCER OF SACRAL REGION, UNSPECIFIED STAGE SNOMED Code(s): 998478508 (2) Urinary tract infection Current Visit: Yes Status: Acute Code(s): N39.0 - URINARY TRACT INFECTION, SITE NOT SPECIFIED SNOMED Code(s): 52765290 Plan: 1patient presented to hospital with confusion which is likely multifactorial in this patient who did have a positive UA and also noticed to have worsening of her sacral wound concerning for sacral wound infection and possible osteo on the basis of the CT however the wound was not palpable on clinical examination. 2blood urine and sacral wound culture has been obtained, currently growing gram-negative with ID sensitivities pending 3local wound care to the sacral wound with Aquacel silver dressing change every 48 hours discussed with the nursing staff. 4we will discontinue vancomycin pharmacy to dose and Rocephin, start the patient on Zosyn while waiting for the culture to finalize we will also check a CT of the sacrum to make sure no evidence of osteomyelitis Dictation was produced using [employer] dictation software. please excuse any grammatical, word or spelling errors. Time with Patient: Less than 30
--- NOTE | 2024-06-16 14:33 | P.PN ---
Subjective Progress Note Date: 06/16/24 No acute events. Pt mentation improved today. She is sitting up in bedside chair, and is answering questions appropriately. Reports sacral pain improved today. Denies SOB and CP Objective - Vital Signs Vital signs: Vital Signs Temp 98 F 06/16/24 08:00 Pulse 88 06/16/24 08:00 Resp 17 06/16/24 08:00 BP 130/66 06/16/24 08:00 Pulse Ox 97 06/16/24 08:00 FiO2 Intake & Output 06/15/24 06/16/24 06/16/24 18:59 06:59 18:59 Intake Total 118 Output Total 1100 1200 Balance -982 -1200 Weight 57.606 kg Intake: Oral 118 Output: Urine 1100 1200 Other: Voiding Method Indwelling Catheter - Constitutional General appearance: Present: no acute distress - EENT Eyes: Present: anicteric sclerae, EOMI ENT: Present: hearing grossly normal - Respiratory Details: breathing is even and unlabored - Cardiovascular Details: skin warm and dry - Gastrointestinal General gastrointestinal: Present: soft. Absent: tenderness - Integumentary Integumentary: Absent: cyanotic - Psychiatric Psychiatric: Present: A&O x's 3 - Labs CBC & Chem 7: 06/16/24 06:45 06/16/24 06:45 Labs: Abnormal Lab Results - Last 24 Hours (Table) 06/16/24 06/16/24 Range/Units 06:45 06:45 RBC 2.35 L (4.10-5.20) X 10*6/uL Hgb 7.1 L (12.0-15.0) g/dL Hct 23.0 L (37.2-46.3) % MCV 97.9 H (80.0-97.0) FL MCHC 30.9 L (32.0-37.0) g/dL RDW 16.4 H (11.5-14.5) % MPV 8.9 L (9.5-12.2) FL Immature Gran # 0.05 H (0.00-0.04) X 10*3/uL Lymphocytes # 0.70 L (0.90-5.00) X 10*3/uL Carbon Dioxide 21.1 L (21.6-31.8) mmol/L BUN 8.3 L (9.0-27.0) mg/dL Microbiology - Last 24 Hours (Table) 06/14/24 10:23 Gram Stain - Preliminary Buttock Wound Culture - Preliminary Gram Neg Bacilli 06/14/24 08:57 Urine Culture - Preliminary Urine,Voided Gram Neg Bacilli Assessment and Plan (1) Confusion Current Visit: Yes Status: Acute Code(s): R41.0 - DISORIENTATION, UNSPECIFIED SNOMED Code(s): 895309132 (2) Sacral decubitus ulcer Current Visit: Yes Status: Acute Code(s): L89.159 - PRESSURE ULCER OF SACRAL REGION, UNSPECIFIED STAGE SNOMED Code(s): 234208664 (3) Urinary tract infection Current Visit: Yes Status: Acute Code(s): N39.0 - URINARY TRACT INFECTION, SITE NOT SPECIFIED SNOMED Code(s): 29327387 (4) Metastatic cancer Current Visit: Yes Status: Acute Priority: High Code(s): C79.9 - SECONDARY MALIGNANT NEOPLASM OF UNSPECIFIED SITE SNOMED Code(s): 775570435 Plan: Confusion, UTI: -UA suspicious for UTI. Urine culture positive for gram negative bacilli -Continues on IV abx -Mentation improving Sacral decubitis ulcer: -ID following -Wound culture positive for Proteus mirabilis -IV abx changed to Zosyn -Wound care consult placed Malignant sarcomatoid carcinoma of endometrium: -Receives oncological care in [place], [place]. Follows with medical oncology and radiation oncology, Dr. Powers and Dr. Encarnacion -Has completed 27 of 28 fractions of RT -Was not felt to be a good surgical candidate, and pt had declined surgical intervention -Considering systemic treatment once RT is complete -CT AP showing abnormal endometrial thickening up to 2.0 cm, shows partial improvement compared to 2.9cm previously. Pulmonary metastases measuring up to 3.1 cm. Son states pt had CT chest in the last 1-2 months which did not show metastasis at that time. Awaiting records from [facility] where imaging was obtained. CT AP obtained on 03/12/24 did not note any suspicious findings for metastatic disease within lung bases -CT chest ordered for further visualization of noted mass. Scan showed diffuse pulmonary nodules/masses, with greater than 100 nodules throughout the lungs -Patient will f/u with her primary medical and radiation oncologist upon discharge for further treatment recommendations and management -Requested CDs of imaging to be given to family so images can be given to her oncology team upon discharge Had long discussion with patient, as well as son via phone today regarding scans/findings. All questions and concerns were addressed
[2024-06-16] MEDS ORDERED: VANCOMYCIN TROUGH DUE 1 EACH MISC MISCELLANE ONE (16:00)
--- NOTE | 2024-06-16 20:24 | CT ---
EXAMINATION TYPE: CT sacrum wo con DATE OF EXAM: 06/16/2024 COMPARISON: CT abdomen pelvis 06/14/2024 HISTORY: pelvic pain CT DLP: 319.6 mGycm Automated exposure control for dose reduction was used. Contrast: None Technique: Axial images 3 mm thick sections. Reconstructed sagittal planes. FINDINGS: The current examination a tiny amount of air is adjacent just posterior to the coccyx which appears t o be related to a posterior. There is some prominence of the sacrococcygeal space. The cortical cherri ns are indistinct. Osteomyelitis to this level should be considered. The distal coccyx appears intact. The dorsal cortical margin is intact. There is cortical disruption of the distal dorsal sacrum suspicious for osteomyelitis adjacent to the patient posterior wound. No acute fractures are evident. No underlying abscess formation is identified. Postsurgical changes a re evident in the lower lumbar spine. Appears to be compression of the S1 vertebral level. IMPRESSION: 1. LOSS OF CORTEX AT THE DISTAL DORSAL SACRUM AND THE SACROCOCCYGEAL VERTEBRAL BODY INTERSPACE. FIND INGS SUSPICIOUS FOR OSTEOMYELITIS. THESE AREAS ARE ADJACENT TO A POSTERIOR BENIGN-APPEARING WOUND. SM ALL AMOUNT OF AIR IS ADJACENT TO THE COCCYX [facility], , 06/16/2024 8:22 PM
--- NOTE | 2024-06-17 05:57 | P.PN ---
Subjective Progress Note Date: 06/16/24 78-year-old female, history of hypertension, diabetes mellitus, dementia, metastatic uterine cancer, who presents to the emergency department for confusion, left-sided rib pain, and a sacral wound. Family states that she started seeming confused a couple of days ago, which typically occurs when she has a UTI. Additionally, she has a pressure ulcer to her sacrum that has been there for about a year. The family had been changing the dressings and monitoring it, however her son states that he started to notice green drainage coming from this a couple of days ago and is worried about infection. States that she has been septic before from this. Not currently on any antibiotics. Patient also complaining of lower back pain. Blood work completed in ED reveals a WBC of 6.3, hemoglobin of 8.1 and platelet count of 401, sodium 136, potassium 4.4, BUN/creatinine of 19/0.53 and blood glucose of 100, lactic acid level of 1.3, UA is positive for nitrites, leukocyte esterase, WBCs and bacteria, troponin is less than 0.012 Sacral decubitus ulcer, crater appears larger and remains full-thickness to the underlying coccyx. Bone loss minimally increased but no osseous disease; new cannonball pulmonary metastases throughout the visualized lungs measuring up to 3.1 cm with trace pleural effusion 06/16/2024 Patient is seen and evaluated in follow-up today currently sitting up in the chair and reports she is not having pain of the sacral wounds. Patient being followed by infectious disease and wound care has been consulted and will consult general surgery as the patient may benefit from some debridement of the sacral ulcer. Appreciate input and recommendations as patient has previously had extensive wound care on this ulcer along with the wound VAC previously. Patient is currently afebrile with no reports of chest pain or shortness of breath. Patient reports to tolerating diet with no reported nausea or vomiting. Review of systems: Constitutional: No reports of fatigue, fever, or chills Cardiovascular: No reports of chest pain or palpitations Respiratory: No reports of shortness of breath or cough GI: No reports of nausea, no reports of vomiting, : No reports of dysuria or retention Neurovascular: reports of generalized weakness, denies sacral pain on exam All medications have been reviewed Active Medications Acetaminophen (Acetaminophen Tab 325 Mg Tab) 650 mg PO Q6HR PRN PRN Reason: Mild Pain or Fever > 100.5 Hydrocodone Bitart/Acetaminophen (Hydrocodone/Apap 5-325mg 1 Each Tab) 1 each PO Q4HR PRN PRN Reason: Moderate Pain (Scale 4 to 6) Last Admin: 06/16/24 13:18 Dose: 1 each Atorvastatin Calcium (Atorvastatin 40 Mg Tab) 40 mg PO DAILY [facility] Last Admin: 06/16/24 09:35 Dose: 40 mg Benztropine Mesylate (Benztropine Mesylate 1 Mg Tab) 1 mg PO BID [facility] Last Admin: 06/16/24 20:39 Dose: 1 mg Famotidine (Famotidine 20 Mg Tab) 20 mg PO DAILY [facility] Last Admin: 06/16/24 09:35 Dose: 20 mg Folic Acid (Folic Acid 1 Mg Tab) 1 mg PO DAILY@1200 [facility] Last Admin: 06/16/24 09:35 Dose: 1 mg Haloperidol (Haloperidol 5 Mg Tab) 2.5 mg PO HS [facility] Last Admin: 06/16/24 20:39 Dose: 2.5 mg Heparin Sodium (Porcine) (Heparin Sodium,Porcine 5,000 Unit/Ml 1 Ml Vial) 5,000 unit SQ Q12HR [facility] Last Admin: 06/16/24 20:40 Dose: 5,000 unit Sodium Chloride (Saline 0.9%) 1,000 mls @ 75 mls/hr IV .[id number] [facility] Last Admin: 06/16/24 17:01 Dose: 75 mls/hr Piperacillin Sod/Tazobactam (Sod 3.375 gm/ Sodium Chloride) 100 mls @ 25 mls/hr IVPB Q8HR [facility]; Protocol Last Admin: 06/17/24 00:08 Dose: 25 mls/hr Ketorolac Tromethamine (Ketorolac 15 Mg/Ml 1 Ml Vial) 15 mg IVP Q6HR PRN PRN Reason: Moderate Pain (Scale 4 to 6) Stop: 06/17/24 14:00 Last Admin: 06/16/24 20:39 Dose: 15 mg Meloxicam (Meloxicam 7.5 Mg Tab) 7.5 mg PO DAILY [facility] Last Admin: 06/16/24 09:35 Dose: 7.5 mg Metoprolol Tartrate (Metoprolol Tartrate 25 Mg Tab) 25 mg PO TID [facility] Last Admin: 06/16/24 20:39 Dose: 25 mg Miscellaneous Information (Rx Info: Iv Contrast Was Given 1 Each Misc) 1 each MISCELLANE DAILY PRN PRN Reason: Per Protocol Stop: 06/17/24 12:20 Morphine Sulfate (Morphine Sulfate 4 Mg/Ml Syringe) 4 mg IV Q4HR PRN PRN Reason: Severe Pain (Scale 7 to 10) Multivitamins (Multivitamins, Thera 1 Each Tab) 1 each PO DAILY@1200 [facility] Last Admin: 06/16/24 09:35 Dose: 1 each Naloxone HCl (Naloxone 0.4 Mg/Ml 1 Ml Vial) 0.2 mg IV Q2M PRN PRN Reason: Opioid Reversal Ondansetron HCl (Ondansetron 4 Mg/2 Ml Vial) 4 mg IVP Q8HR PRN PRN Reason: Nausea And Vomiting Pantoprazole Sodium (Pantoprazole 40 Mg Tablet) 40 mg PO AC-BRKFST [facility] Thiamine HCl (Thiamine 100 Mg Tab) 100 mg PO BID-W/MEALS [facility] Last Admin: 06/16/24 17:00 Dose: 100 mg Tramadol HCl (Tramadol 50 Mg Tab) 25 mg PO Q4H PRN PRN Reason: Moderate Pain Tramadol HCl (Tramadol 50 Mg Tab) 50 mg PO Q4H PRN PRN Reason: Severe Pain PHYSICAL EXAMINATION: GENERAL: The patient is alert and oriented x2, Well developed, elderly appearing, thin built HEENT: Pupils are round and equally reacting to light. EOMI. no scleral icterus. No conjunctival pallor. Normocephalic, atraumatic. No pharyngeal erythema. No thyromegaly. CARDIOVASCULAR: S1 and S2 muffled PULMONARY: diminished breath sounds bilaterally with no wheezing or rhonchi noted. ABDOMEN: soft. Nontender on exam. non-distended, normoactive bowel sounds. No palpable organomegaly. MUSCULOSKELETAL: No joint swelling or deformity. EXTREMITIES: No cyanosis, clubbing, or pedal edema. NEUROLOGICAL: Gross neurological examination did not reveal any focal deficits. Diffuse weakness SKIN: No rashes. Assessment: -Confusion/altered mental status; likely toxic metabolic encephalopathy related to UTI/infected decubitus ulcer, present on admission, improving -Sacral decubitus ulcer, present on admission. 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 Wound care consulted and will also consult general surgery in the event patient may need some debridement of the sacral decub Recommend frequent position changes and offloading of the sacral area at least every 2 hours Encouraged increase activity as tolerated and using an offloading pillow or supportive device to the sacral region while sitting Will follow-up on repeat labs. Replace electrolytes per protocol Oncology on consult Due to multiple complex medical issues, overall prognosis is guarded The impression and plan of care has been dictated by Lianna Avila, nurse practitioner as directed. Dr. Fortino MD I have performed a history and examination and MDM of this patient, discussed the same with the dictator, and agree with the dictator's assessment and plan as written ,documented as a scribe. Based on total visit time, I have performed more than 50% of the visit. Any additional findings or plans will be noted. Objective - Vital Signs Vital signs: Vital Signs Temp 98.0 F 06/16/24 13:04 Pulse 81 06/16/24 13:04 Resp 16 06/16/24 13:04 BP 132/73 06/16/24 13:04 Pulse Ox 97 06/16/24 13:04 FiO2 Intake & Output 06/15/24 06/16/24 06/16/24 18:59 06:59 18:59 Intake Total 118 Output Total 1100 1200 Balance -982 -1200 Weight 57.606 kg 57.606 kg Intake: Oral 118 Output: Urine 1100 1200 Other: Voiding Method Indwelling Catheter Indwelling Catheter - Labs CBC & Chem 7: 06/16/24 06:45 06/16/24 06:45 Labs: Abnormal Lab Results - Last 24 Hours (Table) 06/16/24 06/16/24 Range/Units 06:45 06:45 RBC 2.35 L (4.10-5.20) X 10*6/uL Hgb 7.1 L (12.0-15.0) g/dL Hct 23.0 L (37.2-46.3) % MCV 97.9 H (80.0-97.0) FL MCHC 30.9 L (32.0-37.0) g/dL RDW 16.4 H (11.5-14.5) % MPV 8.9 L (9.5-12.2) FL Immature Gran # 0.05 H (0.00-0.04) X 10*3/uL Lymphocytes # 0.70 L (0.90-5.00) X 10*3/uL Carbon Dioxide 21.1 L (21.6-31.8) mmol/L BUN 8.3 L (9.0-27.0) mg/dL Microbiology - Last 24 Hours (Table) 06/14/24 02:30 Blood Culture - Preliminary Blood 06/14/24 10:23 Gram Stain - Preliminary Buttock Wound Culture - Preliminary Proteus mirabilis 06/14/24 08:57 Urine Culture - Preliminary Urine,Voided Gram Neg Bacilli
[2024-06-17] MEDS: PANTOPRAZOLE 40 MG TABLET PO SCH (08:49)
[2024-06-17 08:57] LABS: Basophils # (A) 0.01 X 10*3/uL (0.00-0.10); Basophils % (A) 0.2 %; Eosinophils # (A) 0.25 X 10*3/uL (0.04-0.35); Eosinophils % (A) 4.1 %; HCT 24.2 % (37.2-46.3); HGB 7.6 g/dL (12.0-15.0); Lymphocytes # (A) 0.78 X 10*3/uL (0.90-5.00); Lymphocytes % (A) 12.8 %; MCH 30.4 pg (27.0-32.0); MCHC 31.4 g/dL (32.0-37.0); MCV 96.8 FL (80.0-97.0); Mean Platelet Volume 8.8 FL (9.5-12.2); Monocytes # (A) 0.55 X 10*3/uL (0.20-1.00); NRBC Per 100 WBC 0 X 10*3/uL (0.00-0.01); Neutrophils # (A) 4.46 X 10*3/uL (1.80-7.70); Neutrophils % (A) 72.9 %; Platelet Count 295 X 10*3/uL (140-440); RDW 16.5 % (11.5-14.5); WBC 6.11 X 10*3/uL (4.50-10.00)
[2024-06-17 09:01] LABS: BUN/Creat Ratio 11.83 Ratio (12.00-20.00); Blood Urea Nitrogen 7.1 mg/dL (9.0-27.0); Calcium 9.7 mg/dL (8.7-10.3); Carbon Dioxide 23.1 mmol/L (21.6-31.8); Chloride 106 mmol/L (96-109); Glucose 91 mg/dL (70-110); Potassium 3.9 mmol/L (3.5-5.5); Sodium 137 mmol/L (135-145)
[2024-06-17 09:54] LABS: Magnesium 1.7 mg/dL (1.5-2.4)
[2024-06-17] MEDS ORDERED: VANCOMYCIN IV PER PHARMACY 1 EACH MISC MISCELLANE PRN (11:15)
[2024-06-17] MEDS: VANCOMYCIN 1,000 MG in SODIUM CHLORIDE 0.9% 250 ML IVPB SCH (13:16)
--- NOTE | 2024-06-17 15:29 | P.GSCN ---
History of Present Illness Consult date: 06/17/24 History of present illness: CHIEF COMPLAINT: Altered mental status HISTORY OF PRESENT ILLNESS: This is a 78-year-old female who presented to the hospital with altered mental status and a sacral wound. She was found to have evidence of a UTI. She is on antibiotics. CT scan of the sacrum was suspicious for osteomyelitis. Surgical consult was placed for possible debridement. Patient has had previous debridement of the sacrum decubitus ulcer in July [address] Atwood. Patient is a diabetic. PAST MEDICAL HISTORY: See below PAST SURGICAL HISTORY: See below MEDICATIONS: See below ALLERGIES: See below SOCIAL HISTORY: No illicit drug use. REVIEW OF SYSTEMS: CONSTITUTIONAL: Denies fever or chills. HEENT: Denies blurred vision, vision changes, or eye pain. Denies hemoptysis CARDIOVASCULAR: Denies chest pain or pressure. RESPIRATORY: No shortness of breath. GASTROINTESTINAL: See HPI for pertinent findings HEMATOLOGIC: Denies bleeding disorders. GENITOURINARY: Denies any blood in urine or increased urinary frequency. SKIN: Denies pruitis. Denies rash. PHYSICAL EXAM: VITAL SIGNS: Reviewed GENERAL: Well-developed in no acute distress. HEENT: No sclera icterus. Extraocular movements grossly intact. Moist buccal mucosa. Head is atraumatic, normocephalic. No nasal drainage. ABDOMEN: Soft. Nondistended. Nondistended NEUROLOGIC: Alert and oriented. Cranial nerves II through XII grossly intact. Skin: Sacral decubitus ulcer. Wound bed is a healthy pink. Minimal drainage noted. LABORATORY DATA: WBC 6.11 Hgb 7.6 platelets 295 Sodium 137 potassium 3.9 creatinine 0.6 IMAGING: CT scan of the sacrum reports loss of cortex at the distal dorsal sacrum and the sacrococcygeal vertebral body interspace findings suspicious for osteomyelitis. ASSESSMENT: 1. Sacral decubitus ulcer 2. Altered mental status 3. 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 Signing provider agrees with the documented findings, assessment, and plan of care. Past Medical History Past Medical History: CVA/TIA, Dementia, Diabetes Mellitus, Hypertension, Osteoarthritis (OA) Additional Past Medical History / Comment(s): Pt states she is on an antibiotic for ear infection/throat infection at this time, TIA which affected speech, pt denies HTN but it is documented in past medical hx, diet controlled diabetes History of Any Multi-Drug Resistant Organisms: None Reported Past Surgical History: Orthopedic Surgery Additional Past Surgical History / Comment(s): I&D tooth abscess, left trigger finger surgery Past Anesthesia/Blood Transfusion Reactions: No Reported Reaction Past Psychological History: Anxiety, Bipolar, Depression Smoking Status: Never smoker Past Alcohol Use History: None Reported Past Drug Use History: None Reported - Past Family History Father Family Medical History: No Reported History Mother Family Medical History: No Reported History Medications and Allergies Home Medications Medication Instructions Recorded Confirmed Type Famotidine [Pepcid] 20 mg PO DAILY 07/29/23 06/14/24 History Metoprolol Tartrate [Lopressor] 25 mg PO TID #0 08/09/23 06/14/24 Rx haloperidoL [Haldol] 2.5 mg PO HS #3 tab 08/09/23 06/14/24 Rx Atorvastatin [Lipitor] 40 mg PO DAILY 06/14/24 06/14/24 History Benztropine Mesylate [Cogentin] 1 mg PO BID 06/14/24 06/14/24 History Celecoxib [CeleBREX] 100 mg PO DAILY 06/14/24 06/14/24 History Ondansetron Odt [Zofran Odt] 4 mg PO Q8HR PRN 06/14/24 06/14/24 History traMADol HCL 25 - 50 mg PO Q4H PRN 06/14/24 06/14/24 History Allergies Allergy/AdvReac Type Severity Reaction Status Date / Time metformin Allergy Unknown Verified 06/14/24 07:55 Sulfa (Sulfonamide Allergy Unknown Verified 06/14/24 07:55 Antibiotics) Surgical - Exam Vital Signs Temp Pulse Resp BP Pulse Ox 97.6 F 86 16 124/74 97 06/14/24 07:52 06/14/24 07:52 06/14/24 07:52 06/14/24 07:52 06/14/24 07:52 Results - Labs 06/17/24 05:54 06/17/24 05:54 Abnormal Lab Results - Last 24 Hours (Table) 06/17/24 06/17/24 Range/Units 05:54 05:54 RBC 2.50 L (4.10-5.20) X 10*6/uL Hgb 7.6 L (12.0-15.0) g/dL Hct 24.2 L (37.2-46.3) % MCHC 31.4 L (32.0-37.0) g/dL RDW 16.5 H (11.5-14.5) % MPV 8.8 L (9.5-12.2) FL Immature Gran # 0.06 H (0.00-0.04) X 10*3/uL Lymphocytes # 0.78 L (0.90-5.00) X 10*3/uL BUN 7.1 L (9.0-27.0) mg/dL BUN/Creatinine Ratio 11.83 L (12.00-20.00) Ratio Microbiology - Last 24 Hours (Table) 06/14/24 02:30 Blood Culture - Preliminary Blood 06/14/24 10:23 Gram Stain - Final Buttock Wound Culture - Final Proteus mirabilis Methicillin resist S. aureus 06/14/24 08:57 Urine Culture - Final Urine,Voided Escherichia coli Diabetes panel 06/17/24 Range/Units 05:54 Sodium 137 (135-145) mmol/L Potassium 3.9 (3.5-5.5) mmol/L Chloride 106 (96-109) mmol/L Carbon Dioxide 23.1 (21.6-31.8) mmol/L BUN 7.1 L (9.0-27.0) mg/dL Creatinine 0.6 (0.6-1.5) mg/dL Glucose 91 (70-110) mg/dL Calcium 9.7 (8.7-10.3) mg/dL Calcium panel 06/17/24 Range/Units 05:54 Calcium 9.7 (8.7-10.3) mg/dL Pituitary panel 06/17/24 Range/Units 05:54 Sodium 137 (135-145) mmol/L Potassium 3.9 (3.5-5.5) mmol/L Chloride 106 (96-109) mmol/L Carbon Dioxide 23.1 (21.6-31.8) mmol/L BUN 7.1 L (9.0-27.0) mg/dL Creatinine 0.6 (0.6-1.5) mg/dL Glucose 91 (70-110) mg/dL Calcium 9.7 (8.7-10.3) mg/dL Adrenal panel 06/17/24 Range/Units 05:54 Sodium 137 (135-145) mmol/L Potassium 3.9 (3.5-5.5) mmol/L Chloride 106 (96-109) mmol/L Carbon Dioxide 23.1 (21.6-31.8) mmol/L BUN 7.1 L (9.0-27.0) mg/dL Creatinine 0.6 (0.6-1.5) mg/dL Glucose 91 (70-110) mg/dL Calcium 9.7 (8.7-10.3) mg/dL
[2024-06-17] MEDS: traMADol 50 MG TAB PO PRN (18:03)
[2024-06-18] MEDS: traMADol 50 MG TAB PO PRN (08:40)
--- NOTE | 2024-06-18 09:25 | P.PN ---
Subjective Progress Note Date: 06/17/24 78-year-old female, history of hypertension, diabetes mellitus, dementia, metastatic uterine cancer, who presents to the emergency department for confusion, left-sided rib pain, and a sacral wound. Family states that she started seeming confused a couple of days ago, which typically occurs when she has a UTI. Additionally, she has a pressure ulcer to her sacrum that has been there for about a year. The family had been changing the dressings and monitoring it, however her son states that he started to notice green drainage coming from this a couple of days ago and is worried about infection. States that she has been septic before from this. Not currently on any antibiotics. Patient also complaining of lower back pain. Blood work completed in ED reveals a WBC of 6.3, hemoglobin of 8.1 and platelet count of 401, sodium 136, potassium 4.4, BUN/creatinine of 19/0.53 and blood glucose of 100, lactic acid level of 1.3, UA is positive for nitrites, leukocyte esterase, WBCs and bacteria, troponin is less than 0.012 Sacral decubitus ulcer, crater appears larger and remains full-thickness to the underlying coccyx. Bone loss minimally increased but no osseous disease; new cannonball pulmonary metastases throughout the visualized lungs measuring up to 3.1 cm with trace pleural effusion 06/16/2024 Patient is seen and evaluated in follow-up today currently sitting up in the chair and reports she is not having pain of the sacral wounds. Patient being followed by infectious disease and wound care has been consulted and will consult general surgery as the patient may benefit from some debridement of the sacral ulcer. Appreciate input and recommendations as patient has previously had extensive wound care on this ulcer along with the wound VAC previously. Patient is currently afebrile with no reports of chest pain or shortness of breath. Patient reports to tolerating diet with no reported nausea or vomiting. 06/17/2024 Patient is seen in follow-up today reports back pain and buttock pain and is extremely weak being followed by multiple consultations. Patient mentation is back to baseline and is continued on ceftriaxone with infectious disease following. Surgery was consulted and evaluated with no plans of surgical intervention at this time recommending to continue with wound care and antibiotics per ID. Patient is afebrile and white count is normal. Hemoglobin maintaining above 7 and currently 7.6. Kidney functions within normal limits. Plan is for patient to go home with family on discharge. Will have PT/OT therapy evaluate. Review of systems: Constitutional: No reports of fatigue, fever, or chills Cardiovascular: No reports of chest pain or palpitations Respiratory: No reports of shortness of breath or cough GI: No reports of nausea, no reports of vomiting, : No reports of dysuria or retention Neurovascular: reports of generalized weakness, denies sacral pain on exam All medications have been reviewed PHYSICAL EXAMINATION: GENERAL: The patient is alert and oriented x2, Well developed, elderly appearing, thin built HEENT: Pupils are round and equally reacting to light. EOMI. no scleral icterus. No conjunctival pallor. Normocephalic, atraumatic. No pharyngeal erythema. No thyromegaly. CARDIOVASCULAR: S1 and S2 muffled PULMONARY: diminished breath sounds bilaterally with no wheezing or rhonchi noted. ABDOMEN: soft. Nontender on exam. non-distended, normoactive bowel sounds. No palpable organomegaly. MUSCULOSKELETAL: No joint swelling or deformity. EXTREMITIES: No cyanosis, clubbing, or pedal edema. NEUROLOGICAL: Gross neurological examination did not reveal any focal deficits. Diffuse weakness SKIN: No rashes. Assessment: -Confusion/altered mental status; likely toxic metabolic encephalopathy related to UTI/infected decubitus ulcer, present on admission, improving -Sacral decubitus ulcer, present on admission. 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 Wound care consulted and making recommendations regarding wound care. General surgery evaluated the patient with no plans for surgical intervention recommending to continue with IV antibiotics and wound care recommendations. Recommend frequent position changes and offloading of the sacral area at least every 2 hours Encouraged increase activity as tolerated and using an offloading pillow or supportive device to the sacral region while sitting. Will have PT/OT therapy evaluate. Oncology on consult and patient will follow-up with her primary oncologist in the outpatient setting Due to multiple complex medical issues, overall prognosis is guarded The impression and plan of care has been dictated by Lianna Avila, nurse practitioner as directed. Dr. Fortino MD I have performed a history and examination and MDM of this patient, discussed the same with the dictator, and agree with the dictator's assessment and plan as written ,documented as a scribe. Based on total visit time, I have performed more than 50% of the visit. Any additional findings or plans will be noted. Objective - Vital Signs Vital signs: Vital Signs Temp 98.5 F 06/17/24 13:14 Pulse 84 06/17/24 13:14 Resp 18 06/17/24 13:14 BP 149/78 06/17/24 13:14 Pulse Ox 97 06/17/24 13:14 FiO2 Intake & Output 06/16/24 06/17/24 06/17/24 18:59 06:59 18:59 Intake Total 0 Output Total 400 1300 Balance -400 -1300 Weight 57.606 kg Intake: Oral 0 Output: Urine 400 1300 Other: Voiding Method Indwelling Catheter Indwelling Catheter Indwelling Catheter # Voids 2 - Labs CBC & Chem 7: 06/17/24 05:54 06/17/24 05:54 Labs: Abnormal Lab Results - Last 24 Hours (Table) 06/17/24 06/17/24 Range/Units 05:54 05:54 RBC 2.50 L (4.10-5.20) X 10*6/uL Hgb 7.6 L (12.0-15.0) g/dL Hct 24.2 L (37.2-46.3) % MCHC 31.4 L (32.0-37.0) g/dL RDW 16.5 H (11.5-14.5) % MPV 8.8 L (9.5-12.2) FL Immature Gran # 0.06 H (0.00-0.04) X 10*3/uL Lymphocytes # 0.78 L (0.90-5.00) X 10*3/uL BUN 7.1 L (9.0-27.0) mg/dL BUN/Creatinine Ratio 11.83 L (12.00-20.00) Ratio Microbiology - Last 24 Hours (Table) 06/14/24 02:30 Blood Culture - Preliminary Blood 06/14/24 10:23 Gram Stain - Final Buttock Wound Culture - Final Proteus mirabilis Methicillin resist S. aureus 06/14/24 08:57 Urine Culture - Final Urine,Voided Escherichia coli
--- NOTE | 2024-06-18 13:01 | P.PN ---
Subjective Progress Note Date: 06/18/24 78-year-old female, history of hypertension, diabetes mellitus, dementia, metastatic uterine cancer, who presents to the emergency department for confusion, left-sided rib pain, and a sacral wound. Family states that she started seeming confused a couple of days ago, which typically occurs when she has a UTI. Additionally, she has a pressure ulcer to her sacrum that has been there for about a year. The family had been changing the dressings and monitoring it, however her son states that he started to notice green drainage coming from this a couple of days ago and is worried about infection. States that she has been septic before from this. Not currently on any antibiotics. Patient also complaining of lower back pain. Blood work completed in ED reveals a WBC of 6.3, hemoglobin of 8.1 and platelet count of 401, sodium 136, potassium 4.4, BUN/creatinine of 19/0.53 and blood glucose of 100, lactic acid level of 1.3, UA is positive for nitrites, leukocyte esterase, WBCs and bacteria, troponin is less than 0.012 Sacral decubitus ulcer, crater appears larger and remains full-thickness to the underlying coccyx. Bone loss minimally increased but no osseous disease; new cannonball pulmonary metastases throughout the visualized lungs measuring up to 3.1 cm with trace pleural effusion 06/16/2024 Patient is seen and evaluated in follow-up today currently sitting up in the chair and reports she is not having pain of the sacral wounds. Patient being followed by infectious disease and wound care has been consulted and will consult general surgery as the patient may benefit from some debridement of the sacral ulcer. Appreciate input and recommendations as patient has previously had extensive wound care on this ulcer along with the wound VAC previously. Patient is currently afebrile with no reports of chest pain or shortness of breath. Patient reports to tolerating diet with no reported nausea or vomiting. 06/17/2024 Patient is seen in follow-up today reports back pain and buttock pain and is extremely weak being followed by multiple consultations. Patient mentation is back to baseline and is continued on ceftriaxone with infectious disease following. Surgery was consulted and evaluated with no plans of surgical intervention at this time recommending to continue with wound care and antibiotics per ID. Patient is afebrile and white count is normal. Hemoglobin maintaining above 7 and currently 7.6. Kidney functions within normal limits. Plan is for patient to go home with family on discharge. Will have PT/OT therapy evaluate. 06/18/2024 Patient is seen and evaluated in follow-up this morning reporting severe pain in her lower back and buttock area and have adjusted medications. Patient is maintained on IV antibiotics in the form of vancomycin along with ceftriaxone and oral Flagyl with infectious disease following and patient will most likely require IV antibiotics on discharge as the patient had another CT of the sacrum done showing a loss of cortex at the distal dorsal sacrum and the sacrococcygeal vertebral body interface suspicious for osteomyelitis in these areas are adjacent to a posterior benign-appearing wound with a small amount of air ad jacent to the coccyx. Patient was evaluated by general surgery with no plans of surgical intervention recommending continuing with wound care. Patient's family plans on taking her home and they live in [place] to the son's home although there has been a discussion of IV antibiotic therapy on discharge which will need to be discussed and arranged with case management/family/infectious disease. Patient is afebrile and extremely weak and recommend PT/OT therapy evaluation. Review of systems: Constitutional: No reports of fatigue, fever, or chills Cardiovascular: No reports of chest pain or palpitations Respiratory: No reports of shortness of breath or cough GI: No reports of nausea, no reports of vomiting, : No reports of dysuria or retention Neurovascular: reports of generalized weakness, reports severe sacral pain on exam All medications have been reviewed PHYSICAL EXAMINATION: GENERAL: The patient is alert and oriented x2, Well developed, elderly appearing, thin built HEENT: Pupils are round and equally reacting to light. EOMI. no scleral icterus. No conjunctival pallor. Normocephalic, atraumatic. No pharyngeal erythema. No thyromegaly. CARDIOVASCULAR: S1 and S2 muffled PULMONARY: diminished breath sounds bilaterally with no wheezing or rhonchi noted. ABDOMEN: soft. Nontender on exam. non-distended, normoactive bowel sounds. No palpable organomegaly. MUSCULOSKELETAL: No joint swelling or deformity. EXTREMITIES: No cyanosis, clubbing, or pedal edema. NEUROLOGICAL: Gross neurological examination did not reveal any focal deficits. Diffuse weakness SKIN: No rashes. Assessment: -Confusion/altered mental status; likely toxic metabolic encephalopathy related to UTI/infected decubitus ulcer, present on admission, improving -Sacral decubitus ulcer, present on admission. 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 Wound care consulted and making recommendations regarding wound care. General surgery evaluated the patient with no plans for surgical intervention recommending to continue with IV antibiotics and wound care recommendations. Patient will likely need IV antibiotics on discharge although patient is from [place] and case management will need to discuss further with infectious disease along with family regarding discharge planning Recommend frequent position changes and offloading of the sacral area at least every 2 hours. Patient reporting 10/10 pain and will adjust medications accordingly. Monitor closely for any altered mentation with narcotic use given this patient's age and dementia history Encouraged increase activity as tolerated and using an offloading pillow or supportive device to the sacral region while sitting. Will have PT/OT therapy evaluate. Oncology on consult and patient will follow-up with her primary oncologist in the outpatient setting Due to multiple complex medical issues, overall prognosis is guarded The impression and plan of care has been dictated by Lianna Avila, nurse practitioner as directed. Dr. Fortino MD I have performed a history and examination and MDM of this patient, discussed the same with the dictator, and agree with the dictator's assessment and plan as written ,documented as a scribe. Based on total visit time, I have performed more than 50% of the visit. Any additional findings or plans will be noted. Objective - Vital Signs Vital signs: Vital Signs Temp 98.0 F 06/18/24 07:23 Pulse 105 H 06/18/24 07:23 Resp 16 06/18/24 07:23 BP 161/77 06/18/24 07:23 Pulse Ox 96 06/18/24 07:23 FiO2 Intake & Output 06/17/24 06/18/24 06/18/24 18:59 06:59 18:59 Intake Total 240 Output Total 1050 1125 Balance -810 -1125 Intake: Oral 240 Output: Urine 1050 1125 Other: Voiding Method Indwelling Catheter Indwelling Catheter # Voids 2 - Labs CBC & Chem 7: 06/17/24 05:54 06/17/24 05:54 Labs: Microbiology - Last 24 Hours (Table) 06/14/24 10:23 Anaerobic Culture - Final Buttock Prevotella denticola 06/14/24 02:30 Blood Culture - Preliminary Blood 06/14/24 10:23 Gram Stain - Final Buttock Wound Culture - Final Proteus mirabilis Methicillin resist S. aureus
--- NOTE | 2024-06-18 13:22 | P.PN ---
Subjective Progress Note Date: 06/18/24 CHIEF COMPLAINT: Sacral decubitus ulcer HISTORY OF PRESENT ILLNESS: Patient sitting up in bed comfortably. No new complaints. Afebrile. WBC 6.11 Hgb 7.6 albumin 3.4 wound culture with Proteus mirabilis and MRSA PHYSICAL EXAM: VITAL SIGNS: Reviewed GENERAL: Well-developed in no acute distress. HEENT: No sclera icterus. Extraocular movements grossly intact. Moist buccal mucosa. Head is atraumatic, normocephalic. Hears conversational speech. No nasal drainage. NECK: Supple without lymphadenopathy. CHEST: Non-labored respirations and equal bilateral excursions. CARDIOVASCULAR: Palpable 2+ radial pulses. ABDOMEN: Soft. Nondistended. Nontender. MUSCULOSKELETAL: No clubbing or cyanosis. NEUROLOGIC: No focal or lateralizing signs. Cranial nerves II through XII grossly intact. PSYCH: Awake and alert. Pleasantly confused. SKIN: Well perfused. Good skin turgor. ASSESSMENT: 1. Sacral decubitus ulcer 2. Altered mental status 3. 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 Moderate protein calorie malnutrition PLAN: -No surgical intervention planned -Continue wound care per wound care service -Antibiotics per infectious disease -Agree with Ensure protein supplement to help promote wound healing Physician Air Shovel Operator note has been reviewed by physician. Signing provider agrees with the documented findings, assessment, and plan of care. Objective - Vital Signs Vital signs: Vital Signs Temp 98.0 F 06/18/24 07:23 Pulse 105 H 06/18/24 07:23 Resp 16 06/18/24 07:23 BP 161/77 06/18/24 07:23 Pulse Ox 96 06/18/24 07:23 FiO2 Intake & Output 06/17/24 06/18/24 06/18/24 18:59 06:59 18:59 Intake Total 240 Output Total 1050 1125 Balance -810 -1125 Intake: Oral 240 Output: Urine 1050 1125 Other: Voiding Method Indwelling Catheter Indwelling Catheter Indwelling Catheter # Voids 2 - Labs CBC & Chem 7: 06/17/24 05:54 06/17/24 05:54 Labs: Microbiology - Last 24 Hours (Table) 06/14/24 02:30 Blood Culture - Preliminary Blood 06/14/24 10:23 Anaerobic Culture - Final Buttock Prevotella denticola 06/14/24 10:23 Gram Stain - Final Buttock Wound Culture - Final Proteus mirabilis Methicillin resist S. aureus
[2024-06-18] MEDS: HYDROcodone/APAP 7.5-325MG 1 EACH TAB PO PRN (15:46)
[2024-06-18] MEDS: metroNIDAZOLE 500 MG TAB PO SCH (15:47)
--- NOTE | 2024-06-18 16:01 | P.PN ---
Subjective Progress Note Date: 06/17/24 Principal diagnosis: Reason for follow-up is UTI and infected sacral ulcer Patient is a 78-year-old -[place] female with a past medical history significant for diabetes mellitus hypertension osteoarthritis dementia CVA TIA previous episode of sacral osteomyelitis, recent diagnosis of metastatic endometrial cancer has been brought into the hospital concerning for confusion and worsening sacral wound. On today's evaluation that is 06/17/2024,the patient denies any fever or any chills, patient is breathing comfortably on room air, the patient denies chest pain shortness of breath and no significant cough, patient denies abdominal pain, no nausea vomiting or diarrhea. Patient did have white count 6.11, creatinine 0.6 Objective - Vital Signs Vital signs: Vital Signs Temp 99.0 F 06/17/24 07:08 Pulse 98 06/17/24 07:08 Resp 20 06/17/24 07:08 BP 142/63 06/17/24 07:08 Pulse Ox 100 06/17/24 07:08 FiO2 Intake & Output 06/16/24 06/17/24 06/17/24 18:59 06:59 18:59 Intake Total 0 Output Total 400 1300 Balance -400 -1300 Weight 57.606 kg Intake: Oral 0 Output: Urine 400 1300 Other: Voiding Method Indwelling Catheter Indwelling Catheter - Exam GENERAL DESCRIPTION: An elderly male lying in bed in no distress RESPIRATORY SYSTEM: Unlabored breathing , decreased breath sounds at bases HEART: S1 S2 regular rate and rhythm , ABDOMEN: Soft , no tenderness, EXTREMITIES: No edema feet - Labs CBC & Chem 7: 06/17/24 05:54 06/17/24 05:54 Labs: Abnormal Lab Results - Last 24 Hours (Table) 06/17/24 06/17/24 Range/Units 05:54 05:54 RBC 2.50 L (4.10-5.20) X 10*6/uL Hgb 7.6 L (12.0-15.0) g/dL Hct 24.2 L (37.2-46.3) % MCHC 31.4 L (32.0-37.0) g/dL RDW 16.5 H (11.5-14.5) % MPV 8.8 L (9.5-12.2) FL Immature Gran # 0.06 H (0.00-0.04) X 10*3/uL Lymphocytes # 0.78 L (0.90-5.00) X 10*3/uL BUN 7.1 L (9.0-27.0) mg/dL BUN/Creatinine Ratio 11.83 L (12.00-20.00) Ratio Microbiology - Last 24 Hours (Table) 06/14/24 10:23 Gram Stain - Final Buttock Wound Culture - Final Proteus mirabilis Methicillin resist S. aureus 06/14/24 08:57 Urine Culture - Final Urine,Voided Escherichia coli 06/14/24 02:30 Blood Culture - Preliminary Blood Assessment and Plan (1) Sacral decubitus ulcer Current Visit: Yes Status: Acute Code(s): L89.159 - PRESSURE ULCER OF SACRAL REGION, UNSPECIFIED STAGE SNOMED Code(s): 204527144 (2) Urinary tract infection Current Visit: Yes Status: Acute Code(s): N39.0 - URINARY TRACT INFECTION, SITE NOT SPECIFIED SNOMED Code(s): 67493663 Plan: 1patient presented to hospital with confusion which is likely multifactorial in this patient who did have a positive UA and also noticed to have worsening of her sacral wound concerning for sacral wound infection and possible osteo on the basis of the CT however the wound was not palpable on clinical examination. 2patient urine culture was finalized with an E. coli sacral ulcer culture growing Proteus and MRSA 3local wound care to the sacral wound with Aquacel silver dressing change every 48 hours discussed with the nursing staff. 4we will restart the patient on vancomycin pharmacy to dose discontinue Zosyn start the patient on Rocephin to cover for the Proteus and E. coli CT sacrum has been ordered Dictation was produced using [employer] dictation software. please excuse any grammatical, word or spelling errors.
--- NOTE | 2024-06-18 16:02 | P.PN ---
Subjective Progress Note Date: 06/18/24 Principal diagnosis: Reason for follow-up is UTI and infected sacral ulcer Patient is a 78-year-old -[place] female with a past medical history significant for diabetes mellitus hypertension osteoarthritis dementia CVA TIA previous episode of sacral osteomyelitis, recent diagnosis of metastatic endometrial cancer has been brought into the hospital concerning for confusion and worsening sacral wound. On today's evaluation that is 06/18/2024,the patient remains to be afebrile, patient is on room air not requiring supplemental oxygen and breathing comfortably no distress the patient was sleepy did respond to her name but did not answer any question. Patient did not have any lab draw today culture positive with MRSA Proteus and Prevotella CT was suspicious for osteo, she did have a sed rate of 66 on admission Objective - Vital Signs Vital signs: Vital Signs Temp 98.0 F 06/18/24 07:23 Pulse 105 H 06/18/24 07:23 Resp 16 06/18/24 07:23 BP 161/77 06/18/24 07:23 Pulse Ox 96 06/18/24 07:23 FiO2 Intake & Output 06/17/24 06/18/24 06/18/24 18:59 06:59 18:59 Intake Total 240 Output Total 1050 1125 Balance -810 -1125 Intake: Oral 240 Output: Urine 1050 1125 Other: Voiding Method Indwelling Catheter Indwelling Catheter # Voids 2 - Exam GENERAL DESCRIPTION: An elderly male lying in bed in no distress RESPIRATORY SYSTEM: Unlabored breathing , decreased breath sounds at bases HEART: S1 S2 regular rate and rhythm , ABDOMEN: Soft , no tenderness, EXTREMITIES: No edema feet - Labs CBC & Chem 7: 06/17/24 05:54 06/17/24 05:54 Labs: Microbiology - Last 24 Hours (Table) 06/14/24 10:23 Anaerobic Culture - Final Buttock Prevotella denticola 06/14/24 02:30 Blood Culture - Preliminary Blood 06/14/24 10:23 Gram Stain - Final Buttock Wound Culture - Final Proteus mirabilis Methicillin resist S. aureus Assessment and Plan (1) Sacral decubitus ulcer Current Visit: Yes Status: Acute Code(s): L89.159 - PRESSURE ULCER OF SACRAL REGION, UNSPECIFIED STAGE SNOMED Code(s): 513444835 (2) Urinary tract infection Current Visit: Yes Status: Acute Code(s): N39.0 - URINARY TRACT INFECTION, SITE NOT SPECIFIED SNOMED Code(s): 17864983 Plan: 1patient presented to hospital with confusion which is likely multifactorial in this patient who did have a positive UA and also noticed to have worsening of her sacral wound concerning for sacral wound infection and possible osteo on the basis of the CT however the wound was not palpable on clinical examination. 2patient urine culture was finalized with an E. coli sacral ulcer culture growing Proteus and MRSA as well as Prevotella 3local wound care to the sacral wound with Aquacel silver dressing change every 48 hours discussed with the nursing staff. 4patient CT sacrum has been suspicious for osteomyelitis patient is covered with the vancomycin Rocephin will add Flagyl to cover for the anaerobes will likely need a PICC line and outpatient IV antibiotics, discussed with the FINGERER for admitting team Dictation was produced using [employer] dictation software. please excuse any grammatical, word or spelling errors. Time with Patient: Less than 30
[2024-06-19] MEDS: ACETAMINOPHEN TAB 325 MG TAB PO PRN (02:55)
--- NOTE | 2024-06-19 09:53 | XR ---
EXAMINATION TYPE: XR chest 1V portable DATE OF EXAM: 06/19/2024 COMPARISON: 06/14/2024 INDICATION: Short of breath TECHNIQUE: Single frontal view of the chest is obtained. FINDINGS: The heart size is normal. The pulmonary vasculature is normal. Extensive pulmonary nodules are present throughout the lung cabrera compatible with metastatic disease . Suspicious consolidation is not identified. Small right pleural effusion may be present. There is some blunting of the left costophrenic angle. Minimal left pleural effusion may be present. IMPRESSION: 1. Extensive pulmonary nodules. 2. Suggestion of small right pleural effusion. Minimal left pleural effusion is not excluded. [facility], , 06/19/2024 9:50 AM
--- NOTE | 2024-06-19 09:56 | P.PN ---
Subjective Progress Note Date: 06/19/24 CHIEF COMPLAINT: Sacral decubitus ulcer HISTORY OF PRESENT ILLNESS: Patient sitting up comfortably bedside chair. Tolerating breakfast. No new complaints. Has been seen by wound care service. Low-grade temp 100.6. WBC 6.11 PHYSICAL EXAM: VITAL SIGNS: Reviewed GENERAL: Well-developed in no acute distress. HEENT: No sclera icterus. Extraocular movements grossly intact. Moist buccal mucosa. Head is atraumatic, normocephalic. Hears conversational speech. No nasal drainage. NECK: Supple without lymphadenopathy. CHEST: Non-labored respirations and equal bilateral excursions. CARDIOVASCULAR: Palpable 2+ radial pulses. ABDOMEN: Soft. Nondistended. Nontender. MUSCULOSKELETAL: No clubbing or cyanosis. NEUROLOGIC: No focal or lateralizing signs. Cranial nerves II through XII grossly intact. PSYCH: Awake and alert. Pleasantly confused. SKIN: Well perfused. Good skin turgor. ASSESSMENT: 1. Sacral decubitus ulcer 2. Altered mental status 3. 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 Moderate protein calorie malnutrition PLAN: -No surgical intervention planned -Continue wound care per wound care service -Antibiotics per infectious disease -Continue Ensure protein supplement to help promote wound healing -Surgical service will sign off. Please call with any questions or concerns. Physician Gasser Machine Operator note has been reviewed by physician. Signing provider agrees with the documented findings, assessment, and plan of care. Objective - Vital Signs Vital signs: Vital Signs Temp 98.7 F 06/19/24 07:58 Pulse 85 06/19/24 07:58 Resp 12 06/19/24 07:58 BP 122/65 06/19/24 07:58 Pulse Ox 91 L 06/19/24 07:58 FiO2 Intake & Output 06/18/24 06/19/24 06/19/24 18:59 06:59 18:59 Intake Total 925 Output Total 1000 Balance -75 Intake: Intake, IV Titration 925 Amount Sodium Chloride 0.9% 1, 625 000 ml @ 20 mls/hr IV . Q24H [facility] Rx#:[id number] Vancomycin 1,000 mg In 250 Sodium Chloride 0.9% 250 ml @ 125 mls/hr IVPB Q12H [facility] Rx#:[id number] cefTRIAXone 2 gm In 50 Sodium Chloride 0.9% 50 ml @ 100 mls/hr IVPB Q24HR [facility] Rx#:[id number] Output: Urine 1000 Other: Voiding Method Indwelling Catheter Indwelling Catheter - Labs CBC & Chem 7: 06/17/24 05:54 06/17/24 05:54 Labs: Microbiology - Last 24 Hours (Table) 06/14/24 02:30 Blood Culture - Preliminary Blood
[2024-06-19] MEDS: VANCOMYCIN TROUGH DUE 1 EACH MISC MISCELLANE ONE (12:34)
[2024-06-19 12:36] LABS: African American GFR (CKD) >90 (>60 ml/min/1.73 sqM); Non-African American GFR(CKD) 89 (>60 ml/min/1.73 sqM)
[2024-06-19] MEDS: VANCOMYCIN 1,250 MG in SODIUM CHLORIDE 0.9% 250 ML IVPB SCH (13:30)
--- NOTE | 2024-06-19 14:20 | P.PN ---
Subjective Progress Note Date: 06/19/24 78-year-old female, history of hypertension, diabetes mellitus, dementia, metastatic uterine cancer, who presents to the emergency department for confusion, left-sided rib pain, and a sacral wound. Family states that she started seeming confused a couple of days ago, which typically occurs when she has a UTI. Additionally, she has a pressure ulcer to her sacrum that has been there for about a year. The family had been changing the dressings and monitoring it, however her son states that he started to notice green drainage coming from this a couple of days ago and is worried about infection. States that she has been septic before from this. Not currently on any antibiotics. Patient also complaining of lower back pain. Blood work completed in ED reveals a WBC of 6.3, hemoglobin of 8.1 and platelet count of 401, sodium 136, potassium 4.4, BUN/creatinine of 19/0.53 and blood glucose of 100, lactic acid level of 1.3, UA is positive for nitrites, leukocyte esterase, WBCs and bacteria, troponin is less than 0.012 Sacral decubitus ulcer, crater appears larger and remains full-thickness to the underlying coccyx. Bone loss minimally increased but no osseous disease; new cannonball pulmonary metastases throughout the visualized lungs measuring up to 3.1 cm with trace pleural effusion 06/16/2024 Patient is seen and evaluated in follow-up today currently sitting up in the chair and reports she is not having pain of the sacral wounds. Patient being followed by infectious disease and wound care has been consulted and will consult general surgery as the patient may benefit from some debridement of the sacral ulcer. Appreciate input and recommendations as patient has previously had extensive wound care on this ulcer along with the wound VAC previously. Patient is currently afebrile with no reports of chest pain or shortness of breath. Patient reports to tolerating diet with no reported nausea or vomiting. 06/17/2024 Patient is seen in follow-up today reports back pain and buttock pain and is extremely weak being followed by multiple consultations. Patient mentation is back to baseline and is continued on ceftriaxone with infectious disease following. Surgery was consulted and evaluated with no plans of surgical intervention at this time recommending to continue with wound care and antibiotics per ID. Patient is afebrile and white count is normal. Hemoglobin maintaining above 7 and currently 7.6. Kidney functions within normal limits. Plan is for patient to go home with family on discharge. Will have PT/OT therapy evaluate. 06/18/2024 Patient is seen and evaluated in follow-up this morning reporting severe pain in her lower back and buttock area and have adjusted medications. Patient is maintained on IV antibiotics in the form of vancomycin along with ceftriaxone and oral Flagyl with infectious disease following and patient will most likely require IV antibiotics on discharge as the patient had another CT of the sacrum done showing a loss of cortex at the distal dorsal sacrum and the sacrococcygeal vertebral body interface suspicious for osteomyelitis in these areas are adjacent to a posterior benign-appearing wound with a small amount of air ad jacent to the coccyx. Patient was evaluated by general surgery with no plans of surgical intervention recommending continuing with wound care. Patient's family plans on taking her home and they live in [place] to the son's home although there has been a discussion of IV antibiotic therapy on discharge which will need to be discussed and arranged with case management/family/infectious disease. Patient is afebrile and extremely weak and recommend PT/OT therapy evaluation. 06/19/2024 Patient is seen in follow-up today with no acute overnight issues noted. Discussed with infectious disease and patient will require a PICC line and IV antibiotics for minimum of 6 weeks outpatient. Per nursing staff patient was noted to have some cheeking with her medications with concerns of aspirations and speech evaluated the patient recommending to continue with current diet and supervision with meals as patient does have history of this previously although is not overtly aspirating on exam. Family will bring in foods of desire as patient prefers this. Patient will receive a PICC line sometime today and case management following arranging for outpatient antibiotics on discharge. Family will be caring for the patient on discharge and will be going home with them. Patient is currently afebrile with no reports of chest pain or shortness of breath. Patient is up in the chair and recommend sitting up in the chair more often. Continue with local wound care and offloading to the buttock area. Review of systems: Constitutional: No reports of fatigue, fever, or chills Cardiovascular: No reports of chest pain or palpitations Respiratory: No reports of shortness of breath or cough GI: No reports of nausea, no reports of vomiting, not tolerating much of diet due to the taste of the food per patient : No reports of dysuria or retention Neurovascular: reports of generalized weakness, reports continued sacral pain on exam All medications have been reviewed PHYSICAL EXAMINATION: GENERAL: The patient is alert and oriented x2, baseline, well developed, elderly appearing, thin built HEENT: Pupils are round and equally reacting to light. EOMI. no scleral icterus. No conjunctival pallor. Normocephalic, atraumatic. No pharyngeal erythema. No thyromegaly. CARDIOVASCULAR: S1 and S2 muffled PULMONARY: diminished breath sounds bilaterally with no wheezing or rhonchi noted. ABDOMEN: soft. Nontender on exam. non-distended, normoactive bowel sounds. No palpable organomegaly. MUSCULOSKELETAL: No joint swelling or deformity. EXTREMITIES: No cyanosis, clubbing, or pedal edema. NEUROLOGICAL: Gross neurological examination did not reveal any focal deficits. Diffuse weakness SKIN: No rashes. Assessment: -Confusion/altered mental status; likely toxic metabolic encephalopathy related to UTI/infected decubitus ulcer, present on admission, improving -Sacral decubitus ulcer, present on admission. Has been ongoing for over a year and did have a wound VAC previously. 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 Wound care following and making recommendations regarding wound care. CT of the sacral area suggestive of osteomyelitis and patient will receive a PICC line and arranging for outpatient IV antibiotics on discharge. Case management is following and patient's family will be taking her home to care for her. General surgery evaluated the patient with no plans for surgical intervention recommending to continue with IV antibiotics and wound care recommendations. Recommend frequent position changes and offloading of the sacral area at least every 2 hours. Patient reporting 10/10 pain and will adjust medications accordingly. Monitor closely for any altered mentation with narcotic use given this patient's age and dementia history Patient was having some issues with cheeking medications per nursing staff and has history of this and given dementia recommend aspiration precautions and supervision with meals. Patient was evaluated by speech recommending continued current diet and family will be bringing food in for her that she enjoys. Encouraged increase activity as tolerated and using an offloading pillow or supportive device to the sacral region while sitting. Recommend PT/OT therapy to follow Oncology on consult and patient will follow-up with her primary oncologist in the outpatient setting Due to multiple complex medical issues, overall prognosis is guarded The impression and plan of care has been dictated by Lianna Avila nurse esmet caron as directed. Dr. Fortino MD I have performed a history and examination and MDM of this patient, discussed the same with the dictator, and agree with the dictator's assessment and plan as written ,documented as a scribe. Based on total visit time, I have performed more than 50% of the visit. Any additional findings or plans will be noted. Objective - Vital Signs Vital signs: Vital Signs Temp 98.7 F 06/19/24 07:58 Pulse 85 06/19/24 07:58 Resp 12 06/19/24 07:58 BP 122/65 06/19/24 07:58 Pulse Ox 91 L 06/19/24 07:58 FiO2 Intake & Output 06/18/24 06/19/24 06/19/24 18:59 06:59 18:59 Intake Total 925 Output Total 1000 Balance -75 Intake: Intake, IV Titration 925 Amount Sodium Chloride 0.9% 1, 625 000 ml @ 20 mls/hr IV . Q24H [facility] Rx#:[id number] Vancomycin 1,000 mg In 250 Sodium Chloride 0.9% 250 ml @ 125 mls/hr IVPB Q12H [facility] Rx#:[id number] cefTRIAXone 2 gm In 50 Sodium Chloride 0.9% 50 ml @ 100 mls/hr IVPB Q24HR [facility] Rx#:[id number] Output: Urine 1000 Other: Voiding Method Indwelling Catheter Indwelling Catheter - Labs CBC & Chem 7: 06/17/24 05:54 06/19/24 11:14 Labs: Microbiology - Last 24 Hours (Table) 06/14/24 02:30 Blood Culture - Preliminary Blood
[2024-06-19 14:29] LABS: INR 1.2 (<1.2); Prothrombin Time 12.3 sec (10.0-12.5)
--- NOTE | 2024-06-19 14:52 | P.PN ---
Subjective Progress Note Date: 06/19/24 Principal diagnosis: Reason for follow-up is UTI and infected sacral ulcer Patient is a 78-year-old -[place] female with a past medical history significant for diabetes mellitus hypertension osteoarthritis dementia CVA TIA previous episode of sacral osteomyelitis, recent diagnosis of metastatic endometrial cancer has been brought into the hospital concerning for confusion and worsening sacral wound. On today's evaluation that is 06/19/2024, the patient did have a fever 100.6 at 2 AM the patient is afebrile since then patient slightly more awake and alert up in the chair no chest pain shortness of breath or cough vomiting or diarrhea has been reported. Patient did have a INR of 1.2 creatinine 0.58 Vanco trough is low at 12.4 Objective - Vital Signs Vital signs: Vital Signs Temp 98.7 F 06/19/24 07:58 Pulse 85 06/19/24 07:58 Resp 12 06/19/24 07:58 BP 122/65 06/19/24 07:58 Pulse Ox 91 L 06/19/24 07:58 FiO2 Intake & Output 06/18/24 06/19/24 06/19/24 18:59 06:59 18:59 Intake Total 925 Output Total 1000 Balance -75 Weight 57.606 kg Intake: Intake, IV Titration 925 Amount Sodium Chloride 0.9% 1, 625 000 ml @ 20 mls/hr IV . Q24H [facility] Rx#:[id number] Vancomycin 1,000 mg In 250 Sodium Chloride 0.9% 250 ml @ 125 mls/hr IVPB Q12H [facility] Rx#:[id number] cefTRIAXone 2 gm In 50 Sodium Chloride 0.9% 50 ml @ 100 mls/hr IVPB Q24HR [facility] Rx#:[id number] Output: Urine 1000 Other: Voiding Method Indwelling Catheter Indwelling Catheter Indwelling Catheter - Exam GENERAL DESCRIPTION: An elderly male lying in bed in no distress RESPIRATORY SYSTEM: Unlabored breathing , decreased breath sounds at bases HEART: S1 S2 regular rate and rhythm , ABDOMEN: Soft , no tenderness, EXTREMITIES: No edema feet - Labs CBC & Chem 7: 06/17/24 05:54 06/19/24 11:14 Labs: Microbiology - Last 24 Hours (Table) 06/14/24 02:30 Blood Culture - Preliminary Blood Assessment and Plan (1) Sacral decubitus ulcer Current Visit: Yes Status: Acute Code(s): L89.159 - PRESSURE ULCER OF SACRAL REGION, UNSPECIFIED STAGE SNOMED Code(s): 771237717 (2) Urinary tract infection Current Visit: Yes Status: Acute Code(s): N39.0 - URINARY TRACT INFECTION, SITE NOT SPECIFIED SNOMED Code(s): 60945304 Plan: 1patient presented to hospital with confusion which is likely multifactorial in this patient who did have a positive UA and also noticed to have worsening of her sacral wound concerning for sacral wound infection and possible osteo on the basis of the CT however the wound was not palpable on clinical examination. 2patient urine culture was finalized with an E. coli sacral ulcer culture growing Proteus and MRSA as well as Prevotella 3local wound care to the sacral wound with Aquacel silver dressing change every 48 hours discussed with the nursing staff. 4patient CT sacrum has been suspicious for osteomyelitis 5patient will need a PICC line and outpatient IV antibiotics, discussed with the BIOMETRICS CONSULTANT for admitting team and continue with the vancomycin Rocephin and Flagyl Dictation was produced using [employer] dictation software. please excuse any gra mmatical, word or spelling errors. Time with Patient: Less than 30
[2024-06-20 05:03] LABS: African American GFR (CKD) >90 (>60 ml/min/1.73 sqM); Non-African American GFR(CKD) >90 (>60 ml/min/1.73 sqM)
--- NOTE | 2024-06-20 16:11 | P.PN ---
Subjective Progress Note Date: 06/20/24 Principal diagnosis: Reason for follow-up is UTI and infected sacral ulcer Patient is a 78-year-old -[place] female with a past medical history significant for diabetes mellitus hypertension osteoarthritis dementia CVA TIA previous episode of sacral osteomyelitis, recent diagnosis of metastatic endometrial cancer has been brought into the hospital concerning for confusion and worsening sacral wound. On today's evaluation that is 06/20/2024, Patient is afebrile patient is currently on room air and denies having any shortness of breath, the patient denies any chest pain or cough, the patient denies any nausea vomiting did not have any abdominal pain and no diarrhea. Patient did have a creatinine 0.54 Objective - Vital Signs Vital signs: Vital Signs Temp 97.7 F 06/20/24 13:50 Pulse 94 06/20/24 13:50 Resp 16 06/20/24 13:50 BP 100/59 06/20/24 13:50 Pulse Ox 96 06/20/24 13:50 FiO2 Intake & Output 06/19/24 06/20/24 06/20/24 18:59 06:59 18:59 Intake Total 640 Output Total 800 700 Balance -800 -60 Weight 57.606 kg Intake: Oral 640 Output: Urine 800 700 Other: Voiding Method Indwelling Catheter Indwelling Catheter Indwelling Catheter # Voids 1 - Exam GENERAL DESCRIPTION: An elderly male lying in bed in no distress RESPIRATORY SYSTEM: Unlabored breathing , decreased breath sounds at bases HEART: S1 S2 regular rate and rhythm , ABDOMEN: Soft , no tenderness, EXTREMITIES: No edema feet - Labs CBC & Chem 7: 06/17/24 05:54 06/20/24 03:24 Labs: Microbiology - Last 24 Hours (Table) 06/14/24 02:30 Blood Culture - Final Blood Assessment and Plan (1) Sacral decubitus ulcer Current Visit: Yes Status: Acute Code(s): L89.159 - PRESSURE ULCER OF SACRAL REGION, UNSPECIFIED STAGE SNOMED Code(s): 376768348 (2) Urinary tract infection Current Visit: Yes Status: Acute Code(s): N39.0 - URINARY TRACT INFECTION, SITE NOT SPECIFIED SNOMED Code(s): 27825464 Plan: 1patient presented to hospital with confusion which is likely multifactorial in this patient who did have a positive UA and also noticed to have worsening of her sacral wound concerning for sacral wound infection and possible osteo on the basis of the CT however the wound was not palpable on clinical examination. 2patient urine culture was finalized with an E. coli sacral ulcer culture growing Proteus and MRSA as well as Prevotella 3local wound care to the sacral wound with Aquacel silver dressing change every 48 hours discussed with the nursing staff. 4patient CT sacrum has been suspicious for osteomyelitis 5patient to continue with the vancomycin Rocephin and Flagyl, currently waiting for outpatient IV antibiotic arrangement Dictation was produced using [employer] dictation software. please excuse any grammatical, word or spelling errors.
--- NOTE | 2024-06-20 17:52 | P.PN ---
Subjective Progress Note Date: 06/20/24 CT scan report reviewed with questionable osteomyelitis. Wound bed pink and robust. Recommend Augmentin nutrition for healing. No acute surgical invention needed at this time. No reports of active fibrinous exudate for resection. Objective - Vital Signs Vital signs: Vital Signs Temp 97.7 F 06/20/24 13:50 Pulse 94 06/20/24 13:50 Resp 16 06/20/24 13:50 BP 100/59 06/20/24 13:50 Pulse Ox 96 06/20/24 13:50 FiO2 Intake & Output 06/19/24 06/20/24 06/20/24 18:59 06:59 18:59 Intake Total 640 840 Output Total 800 700 850 Balance -800 -60 -10 Weight 57.606 kg Intake: Oral 640 840 Output: Urine 800 700 850 Other: Voiding Method Indwelling Catheter Indwelling Catheter Indwelling Catheter # Voids 1 - Labs CBC & Chem 7: 06/17/24 05:54 06/20/24 03:24 Labs: Microbiology - Last 24 Hours (Table) 06/14/24 02:30 Blood Culture - Final Blood
--- NOTE | 2024-06-20 21:39 | PN ---
PROGRESS NOTE DATE OF SERVICE: 06/20/2024 SUBJECTIVE: This 78-year-old woman was admitted with sacral decubitus and possible osteomyelitis, is complaining of severe pain. No chest pain. No palpitations. OBJECTIVE: VITAL SIGNS: Pulse is 103, blood pressure 130/72, respirations 16. CHEST: Clear to auscultation. CARDIOVASCULAR: S1, S2. ABDOMEN: Soft. LABORATORY DATA: Hemoglobin 7.6. Polymicrobial jairon. ASSESSMENT: 1. Sacral decubitus ulcer with possible osteomyelitis. 2. Severe pain. 3. Uterine cancer with cannibal pulmonary mets. 4. Hypertension. 5. Hyperlipidemia. RECOMMEND: To continue current management and continue symptomatic treatment. Recommend pain medications, IV pain medications. Repeat laboratories. Prognosis extremely guarded. IV antibiotics. Further recommendations follow. MMODL / IJN: [id number] /
[2024-06-21 10:01] LABS: BUN/Creat Ratio 14.29 Ratio (12.00-20.00); Calcium 8.8 mg/dL (8.7-10.3); Carbon Dioxide 20.1 mmol/L (21.6-31.8); Chloride 101 mmol/L (96-109); Glucose 120 mg/dL (70-110); Sodium 130 mmol/L (135-145)
[2024-06-21 10:41] LABS: Basophils # (A) 0.02 X 10*3/uL (0.00-0.10); Basophils % (A) 0.2 %; Eosinophils # (A) 0.01 X 10*3/uL (0.04-0.35); Eosinophils % (A) 0.1 %; HCT 21.5 % (37.2-46.3); HGB 6.9 g/dL (12.0-15.0); Lymphocytes # (A) 0.94 X 10*3/uL (0.90-5.00); Lymphocytes % (A) 11.3 %; MCH 30.4 pg (27.0-32.0); MCHC 32.1 g/dL (32.0-37.0); MCV 94.7 FL (80.0-97.0); Monocytes # (A) 0.86 X 10*3/uL (0.20-1.00); Monocytes % (A) 10.3 %; NRBC Per 100 WBC 0 X 10*3/uL (0.00-0.01); Neutrophils % (A) 77.1 %; Platelet Count 273 X 10*3/uL (140-440); RBC 2.27 X 10*6/uL (4.10-5.20); RDW 16.6 % (11.5-14.5); Toxic Vacuolation 2+; WBC 8.31 X 10*3/uL (4.50-10.00)
--- NOTE | 2024-06-21 22:54 | PN ---
PROGRESS NOTE DATE OF SERVICE: 06/21/2024 SUBJECTIVE: This 78-year-old woman is admitted with decubitus ulcer and possible osteomyelitis. She is being closely monitored. No chest pain. No palpitations. No fever. The patient also had recent history of metastatic endometrial cancer. Hemoglobin 6.9 today. PHYSICAL EXAMINATION: VITAL SIGNS: Pulse is 92, blood pressure 150/70, respirations 16. CHEST: Clear to auscultation. ABDOMEN: Soft. LABORATORY STUDIES: Reviewed. ASSESSMENT: 1. Sacral decubitus ulcer with possible osteomyelitis. 2. Symptomatic anemia, multifactorial. 3. Severe pain. 4. Uterine cancer with cannibal pulmonary mets. 5. Hypertension. 6. Hyperlipidemia. Recommend to continue current management. Recommend 1 unit transfusion. Otherwise, continue rest of the medication, antibiotics. Repeat labs in the morning. Further recommendations to follow. Prognosis is guarded. MMVIVIAN / DAVID: [id number] /
[2024-06-22 05:29] LABS: Anisocytosis Slight; Basophils % (A) 0 %; Eosinophils # (A) 0.2 k/uL (0-0.7); Eosinophils % (A) 2 %; HCT 28.1 % (34.0-46.0); HGB 9.2 gm/dL (11.4-16.0); Hypochromasia Slight; Lymphocytes # (A) 0.8 k/uL (1.0-4.8); Lymphocytes % (A) 9 %; MCH 30.8 pg (25.0-35.0); MCHC 32.8 g/dL (31.0-37.0); MCV 94.1 fL (80.0-100.0); Mean Platelet Volume 8.5; Monocytes # (A) 0.5 k/uL (0-1.0); Monocytes % (A) 5 %; Neutrophils # (A) 7.5 k/uL (1.3-7.7); Neutrophils % (A) 81 %; Platelet Count 292 k/uL (150-450); Poikilocytosis Slight; RBC 2.98 m/uL (3.80-5.40); RDW 17.3 % (11.5-15.5); WBC 9.3 k/uL (3.8-10.6)
[2024-06-22 05:46] LABS: African American GFR (CKD) >90 (>60 ml/min/1.73 sqM); Anion Gap 6 mmol/L; Blood Urea Nitrogen 8 mg/dL (7-17); Calcium 9.5 mg/dL (8.4-10.2); Carbon Dioxide 19 mmol/L (22-30); Chloride 107 mmol/L (98-107); Glucose 90 mg/dL (74-99); Non-African American GFR(CKD) >90 (>60 ml/min/1.73 sqM); Potassium 3.7 mmol/L (3.5-5.1); Sodium 132 mmol/L (137-145)
[2024-06-22] MEDS: VANCOMYCIN TROUGH DUE 1 EACH MISC MISCELLANE ONE (13:08)
[2024-06-22 13:09] LABS: African American GFR (CKD) >90 (>60 ml/min/1.73 sqM); Non-African American GFR(CKD) 88 (>60 ml/min/1.73 sqM)
[2024-06-22] MEDS: amLODIPine 10 MG TAB PO SCH (13:57)
--- NOTE | 2024-06-22 17:23 | P.PN ---
Subjective Progress Note Date: 06/22/24 Principal diagnosis: UTI, confusion, decubitus. Hx sarcomatoid malignancy of endometrium. Suspicions for multiple myeloma. In f/u pt son wanted to meet with Hem/Onc. Pt does not arouse while I am talking with son. Does not appear to be in any acute pain or discomfort. Objective - Vital Signs Vital signs: Vital Signs Temp 99.9 F H 06/22/24 13:37 Pulse 96 06/22/24 13:37 Resp 18 06/22/24 13:37 BP 134/72 06/22/24 13:37 Pulse Ox 97 06/22/24 13:37 FiO2 Intake & Output 06/21/24 06/22/24 06/22/24 18:59 06:59 18:59 Intake Total 310 10 Output Total 700 700 Balance -390 -690 Intake: Oral 10 Blood Product 310 Rc As-1 Unit 310 [id number] Output: Urine 700 700 Other: Voiding Method Indwelling Catheter Indwelling Catheter Indwelling Catheter # Bowel Movements 1 1 - Constitutional General appearance: Present: no acute distress, thin - Respiratory Details: resp even and unlabored - Musculoskeletal Musculoskeletal: Present: generalized weakness - Psychiatric Psychiatric Comment(s): Pt did not arouse during my conversation with her son - Labs CBC & Chem 7: 06/22/24 04:10 06/22/24 12:19 Labs: Abnormal Lab Results - Last 24 Hours (Table) 06/22/24 06/22/24 Range/Units 04:10 04:10 RBC 2.98 L (3.80-5.40) m/uL Hgb 9.2 L (11.4-16.0) gm/dL Hct 28.1 L (34.0-46.0) % RDW 17.3 H (11.5-15.5) % Lymphocytes # 0.8 L (1.0-4.8) k/uL Sodium 132 L (137-145) mmol/L Carbon Dioxide 19 L (22-30) mmol/L Assessment and Plan (1) Endometrial adenocarcinoma Current Visit: Yes Status: Acute Priority: High Code(s): C54.1 - MALIGNANT NEOPLASM OF ENDOMETRIUM SNOMED Code(s): 113544575 (2) Multiple myeloma Current Visit: Yes Status: Suspected Priority: Medium Code(s): C90.00 - MULTIPLE MYELOMA NOT HAVING ACHIEVED REMISSION SNOMED Code(s): 438880974 Plan: There is a palliative care note from [place] dated 06/08/2024. Patient's pain was being treated with tramadol as narcotics upset patient's stomach. She was having sacral wounds treated, wound care. Narcotic induced constipation treatme nt. At the time of this note it is reported patient is primarily bedbound, wheelchair. Dependent on caregivers for all ADLs. CODE STATUS was not addressed at that time. Patient has 2 malignancies sarcomatoid endometrial carcinoma as well as suspicions for multiple myeloma. Patient's son asking questions about treatment of malignancy. Currently patient is being treated for infection. She would not be able to have any treatment for malignancy of any kind until infection is adequately treated and she is recovered. Uncertain if patient's performance status would be able to recover adequately enough to treat. Patient is now going to be moving back up to [place] so, we will get pt established with Medical Oncology here. Time with Patient: Greater than 30 (counseling, coordinating care, summarizing reports from outside providers.)
--- NOTE | 2024-06-22 21:13 | PN ---
PROGRESS NOTE DATE OF SERVICE: 06/22/2024 SUBJECTIVE: This 78-year-old woman is admitted with sacral decubitus as well as osteomyelitis, is being closely monitored at this time. The patient also had multiple medications at this time. Hemoglobin improved to 9.2 after transfusion. Currently, we are planning antibiotics and had a detailed discussion with a son who is a chiropractor in [place], [place]. The patient is likely to stay here in [place] with some help and arrange outpatient followup at this time. PAST MEDICAL HISTORY: Reviewed. REVIEW OF SYSTEMS: Fourteen-point review of systems negative except as mentioned earlier. CURRENT MEDICATIONS: Reviewed. PHYSICAL EXAMINATION: VITAL SIGNS: Pulse is 94, blood pressure 160/70, and respirations 16. CHEST: Scattered rhonchi. ABDOMEN: Soft. NERVOUS SYSTEM: Nonfocal. LABORATORY DATA: Noted. ASSESSMENT: 1. Sacral decubitus ulcer with possible osteomyelitis. 2. Hypertension. 3. Symptomatic anemia, multifactorial, status post blood transfusion. 4. Severe pain. 5. Uterine cancer with cannonball pulmonary metastases. 6. Hypertension. 7. Hyperlipidemia. RECOMMENDATION: Recommend to continue current management and continue symptomatic treatment. Monitor lytes tomorrow. Pain management. Otherwise, I would recommend range IV antibiotics and followups including Hematology/Oncology evaluation. The patient is currently stable, but overall prognosis guarded. Further recommendations to follow. See orders for details. MMODL / IJN: [id number] /
[2024-06-23 06:40] LABS: African American GFR (CKD) 45 (>60 ml/min/1.73 sqM); Anion Gap 4 mmol/L; Blood Urea Nitrogen 15 mg/dL (7-17); Calcium 9.7 mg/dL (8.4-10.2); Carbon Dioxide 22 mmol/L (22-30); Chloride 105 mmol/L (98-107); Glucose 95 mg/dL (74-99); Non-African American GFR(CKD) 39 (>60 ml/min/1.73 sqM); Sodium 131 mmol/L (137-145)
[2024-06-23 09:07] LABS: Basophils # (A) 0.02 X 10*3/uL (0.00-0.10); Basophils % (A) 0.2 %; Eosinophils # (A) 0.35 X 10*3/uL (0.04-0.35); Eosinophils % (A) 3.2 %; HCT 26.5 % (37.2-46.3); HGB 8.3 g/dL (12.0-15.0); Lymphocytes # (A) 0.94 X 10*3/uL (0.90-5.00); Lymphocytes % (A) 8.5 %; MCH 30.3 pg (27.0-32.0); MCHC 31.3 g/dL (32.0-37.0); MCV 96.7 FL (80.0-97.0); Mean Platelet Volume 8.7 FL (9.5-12.2); Monocytes # (A) 0.99 X 10*3/uL (0.20-1.00); NRBC Per 100 WBC 0.02 X 10*3/uL (0.00-0.01); Neutrophils # (A) 8.56 X 10*3/uL (1.80-7.70); Neutrophils % (A) 77.5 %; Platelet Count 255 X 10*3/uL (140-440); RBC 2.74 X 10*6/uL (4.10-5.20); RDW 17.1 % (11.5-14.5); WBC 11.04 X 10*3/uL (4.50-10.00)
[2024-06-23] MEDS: DAPTOmycin 350 MG in SODIUM CHLORIDE 0.9% 50 ML IVPB SCH (12:23)
--- NOTE | 2024-06-23 13:22 | P.PN ---
Subjective Progress Note Date: 06/21/24 Principal diagnosis: Reason for follow-up is UTI and infected sacral ulcer Patient is a 78-year-old -[place] female with a past medical history significant for diabetes mellitus hypertension osteoarthritis dementia CVA TIA previous episode of sacral osteomyelitis, recent diagnosis of metastatic endometrial cancer has been brought into the hospital concerning for confusion and worsening sacral wound. On today's evaluation that is 06/21/2024, patient has been afebrile, patient is breathing comfortably and is currently on room air, patient denies having any significant cough no chest pain shortness of breath, patient denies nausea vomiting or diarrhea and no abdominal pain. Patient white count is 8.31 creatinine 0.7 Objective - Vital Signs Vital signs: Vital Signs Temp 98.6 F 06/21/24 13:49 Pulse 98 06/21/24 13:49 Resp 16 06/21/24 13:49 BP 153/75 06/21/24 13:49 Pulse Ox 99 06/21/24 13:49 FiO2 Intake & Output 06/20/24 06/21/24 06/21/24 18:59 06:59 18:59 Intake Total 840 590 0 Output Total 850 600 Balance -10 -10 0 Intake: Oral 840 590 Blood Product 0 Unit 0 Output: Urine 850 600 Other: Voiding Method Indwelling Catheter Indwelling Catheter Indwelling Catheter # Bowel Movements 1 - Exam GENERAL DESCRIPTION: An elderly male lying in bed in no distress RESPIRATORY SYSTEM: Unlabored breathing , decreased breath sounds at bases HEART: S1 S2 regular rate and rhythm , ABDOMEN: Soft , no tenderness, EXTREMITIES: No edema feet - Labs CBC & Chem 7: 06/23/24 05:34 06/23/24 05:34 Labs: Abnormal Lab Results - Last 24 Hours (Table) 06/21/24 06/21/24 06/21/24 Range/Units 04:04 04:04 12:00 RBC 2.27 L (4.10-5.20) X 10*6/uL Hgb 6.9 A* (12.0-15.0) g/dL Hct 21.5 L (37.2-46.3) % RDW 16.6 H (11.5-14.5) % MPV 9.0 L (9.5-12.2) FL Immature Gran # 0.08 H (0.00-0.04) X 10*3/uL Eosinophils # 0.01 L (0.04-0.35) X 10*3/uL Toxic Vacuolation 2+ A Sodium 130 L (135-145) mmol/L Carbon Dioxide 20.1 L (21.6-31.8) mmol/L Glucose 120 H (70-110) mg/dL Crossmatch See Detail Microbiology - Last 24 Hours (Table) 06/14/24 02:30 Blood Culture - Final Blood Assessment and Plan (1) Sacral decubitus ulcer Current Visit: Yes Status: Acute Code(s): L89.159 - PRESSURE ULCER OF SACRAL REGION, UNSPECIFIED STAGE SNOMED Code(s): 043985779 (2) Urinary tract infection Current Visit: Yes Status: Acute Code(s): N39.0 - URINARY TRACT INFECTION, SITE NOT SPECIFIED SNOMED Code(s): 18280958 Plan: 1patient presented to hospital with confusion which is likely multifactorial in this patient who did have a positive UA and also noticed to have worsening of her sacral wound concerning for sacral wound infection and possible osteo on the basis of the CT however the wound was not palpable on clinical examination. 2patient urine culture was finalized with an E. coli sacral ulcer culture growing Proteus and MRSA as well as Prevotella 3local wound care to the sacral wound with Aquacel silver dressing change every 48 hours discussed with the nursing staff. 4patient CT sacrum has been suspicious for osteomyelitis 5patient to continue with the vancomycin Rocephin and Flagyl, x 5 weeks on discharge to finish a 6-week course of therapy Dictation was produced using [employer] dictation software. please excuse any grammatical, word or spelling errors. Time with Patient: Less than 30
--- NOTE | 2024-06-23 13:23 | P.PN ---
Subjective Progress Note Date: 06/22/24 Principal diagnosis: Reason for follow-up is UTI and infected sacral ulcer Patient is a 78-year-old -[place] female with a past medical history significant for diabetes mellitus hypertension osteoarthritis dementia CVA TIA previous episode of sacral osteomyelitis, recent diagnosis of metastatic endometrial cancer has been brought into the hospital concerning for confusion and worsening sacral wound. On today's evaluation that is 06/22/2024, Patient is afebrile this morning patient slightly more awake and alert today denies having any chest pain shortness of breath or cough, the patient is breathing comfortably on room air, patient denies any abdominal pain no diarrhea no nausea no vomiting. Patient white count is 9.3, creatinine 0.56 Vanco trough is 20.5 Objective - Vital Signs Vital signs: Vital Signs Temp 97.9 F 06/22/24 07:32 Pulse 94 06/22/24 07:32 Resp 16 06/22/24 07:32 BP 162/79 06/22/24 07:32 Pulse Ox 93 L 06/22/24 07:32 FiO2 Intake & Output 06/21/24 06/22/24 06/22/24 18:59 06:59 18:59 Intake Total 310 10 Output Total 700 700 Balance -390 -690 Intake: Oral 10 Blood Product 310 Rc As-1 Unit 310 [id number] Output: Urine 700 700 Other: Voiding Method Indwelling Catheter Indwelling Catheter # Bowel Movements 1 1 - Exam GENERAL DESCRIPTION: An elderly male lying in bed in no distress RESPIRATORY SYSTEM: Unlabored breathing , decreased breath sounds at bases HEART: S1 S2 regular rate and rhythm , ABDOMEN: Soft , no tenderness, EXTREMITIES: No edema feet - Labs CBC & Chem 7: 06/23/24 05:34 06/23/24 05:34 Labs: Abnormal Lab Results - Last 24 Hours (Table) 06/21/24 06/22/24 06/22/24 Range/Units 12:00 04:10 04:10 RBC 2.98 L (3.80-5.40) m/uL Hgb 9.2 L (11.4-16.0) gm/dL Hct 28.1 L (34.0-46.0) % RDW 17.3 H (11.5-15.5) % Lymphocytes # 0.8 L (1.0-4.8) k/uL Sodium 132 L (137-145) mmol/L Carbon Dioxide 19 L (22-30) mmol/L Crossmatch See Detail Assessment and Plan (1) Sacral decubitus ulcer Current Visit: Yes Status: Acute Code(s): L89.159 - PRESSURE ULCER OF SACRAL REGION, UNSPECIFIED STAGE SNOMED Code(s): 271539809 (2) Urinary tract infection Current Visit: Yes Status: Acute Code(s): N39.0 - URINARY TRACT INFECTION, SITE NOT SPECIFIED SNOMED Code(s): 76773539 Plan: 1patient presented to hospital with confusion which is likely multifactorial in this patient who did have a positive UA and also noticed to have worsening of her sacral wound concerning for sacral wound infection and possible osteo on the basis of the CT however the wound was not palpable on clinical examination. 2patient urine culture was finalized with an E. coli sacral ulcer culture growing Proteus and MRSA as well as Prevotella 3local wound care to the sacral wound with Aquacel silver dressing change every 48 hours discussed with the nursing staff. 4patient CT sacrum has been suspicious for osteomyelitis 5patient remains to be afebrile, white count has been plan is to to continue with the vancomycin Rocephin and Flagyl to finish 6-week course of therapy including the days of antibiotic the patient has received here Dictation was produced using [employer] dictation software. please excuse any grammatical, word or spelling errors. Time with Patient: Less than 30
--- NOTE | 2024-06-23 13:24 | P.PN ---
Subjective Progress Note Date: 06/23/24 Principal diagnosis: Reason for follow-up is UTI and infected sacral ulcer Patient is a 78-year-old -[place] female with a past medical history significant for diabetes mellitus hypertension osteoarthritis dementia CVA TIA previous episode of sacral osteomyelitis, recent diagnosis of metastatic endometrial cancer has been brought into the hospital concerning for confusion and worsening sacral wound. On today's evaluation that is 06/23/2024,the patient continues to be afebrile and she is breathing comfortably on room air no need for supplemental oxygen patient seen be more sleepy today as reported by the son at the bedside however the patient did open his eyes to her name with a smile no vomiting diarrhea has been reported. Patient white count is 11.04 creatinine is up to 1.32 from a history of 0.61 Vanco trough yesterday was 20.5 Objective - Vital Signs Vital signs: Vital Signs Temp 97.9 F 06/23/24 07:04 Pulse 104 H 06/23/24 07:04 Resp 22 06/23/24 07:04 BP 154/75 06/23/24 07:04 Pulse Ox 97 06/23/24 07:04 FiO2 Intake & Output 06/22/24 06/23/24 06/23/24 18:59 06:59 18:59 Intake Total 580 Output Total 500 310 Balance -500 270 Weight 57.606 kg Intake: Intake, IV Titration 550 Amount Sodium Chloride 0.9% 1, 300 000 ml @ 20 mls/hr IV . Q24H [facility] Rx#:[id number] Vancomycin 1,250 mg In 250 Sodium Chloride 0.9% 250 ml @ 125 mls/hr IVPB Q12H [facility] Rx#:[id number] Oral 30 Output: Urine 500 310 Other: Voiding Method Indwelling Catheter Indwelling Catheter Indwelling Catheter # Bowel Movements 1 - Exam GENERAL DESCRIPTION: An elderly male lying in bed in no distress RESPIRATORY SYSTEM: Unlabored breathing , decreased breath sounds at bases HEART: S1 S2 regular rate and rhythm , ABDOMEN: Soft , no tenderness, EXTREMITIES: No edema feet - Labs CBC & Chem 7: 06/23/24 05:34 06/23/24 05:34 Labs: Abnormal Lab Results - Last 24 Hours (Table) 06/23/24 06/23/24 Range/Units 05:34 05:34 WBC 11.04 H (4.50-10.00) X 10*3/uL RBC 2.74 L (4.10-5.20) X 10*6/uL Hgb 8.3 L (12.0-15.0) g/dL Hct 26.5 L (37.2-46.3) % MCHC 31.3 L (32.0-37.0) g/dL RDW 17.1 H (11.5-14.5) % MPV 8.7 L (9.5-12.2) FL Immature Gran # 0.18 H (0.00-0.04) X 10*3/uL Neutrophils # 8.56 H (1.80-7.70) X 10*3/uL NRBC/100 WBC Diff 0.02 H (0.00-0.01) X 10*3/uL Sodium 131 L (137-145) mmol/L Creatinine 1.32 H (0.52-1.04) mg/dL Assessment and Plan (1) Sacral decubitus ulcer Current Visit: Yes Status: Acute Code(s): L89.159 - PRESSURE ULCER OF SACRAL REGION, UNSPECIFIED STAGE SNOMED Code(s): 306652216 (2) Urinary tract infection Current Visit: Yes Status: Acute Code(s): N39.0 - URINARY TRACT INFECTION, SITE NOT SPECIFIED SNOMED Code(s): 45643243 Plan: 1patient presented to hospital with confusion which is likely multifactorial in this patient who did have a positive UA and also noticed to have worsening of her sacral wound concerning for sacral wound infection and possible osteo on the basis of the CT however the wound was not palpable on clinical examination. 2patient urine culture was finalized with an E. coli sacral ulcer culture growing Proteus and MRSA as well as Prevotella 3local wound care to the sacral wound with Aquacel silver dressing change every 48 hours discussed with the nursing staff. 4patient CT sacrum has been suspicious for osteomyelitis 5patient remains to be afebrile, patient noted to have slight worsening of the creatinine which is likely multifactorial possible prerenal Vanco trough was only 20.5 however has been discontinued patient was started on daptomycin I have detailed discussion with the son at the bedside keeping in mind her metastatic endometrial cancer it may be better to go hospice instead of going home with IV antibiotic therapy multiple question concern has been answered for now continue with the Rocephin daptomycin and Flagyl until final decision is made Dictation was produced using [employer] dictation software. please excuse any gramma tical, word or spelling errors. Time with Patient: Less than 30
--- NOTE | 2024-06-23 15:43 | P.PN ---
Subjective Progress Note Date: 06/23/24 Principal diagnosis: UTI, confusion, decubitus. Hx sarcomatoid malignancy of endometrium. Suspicions for multiple myeloma. In f/u pt son wanted to meet with Hem/Onc again today. Pt is in chair, she is alert, does not speak, does not open her mouth. Objective - Vital Signs Vital signs: Vital Signs Temp 98.4 F 06/23/24 13:21 Pulse 88 06/23/24 13:21 Resp 16 06/23/24 13:21 BP 122/73 06/23/24 13:21 Pulse Ox 96 06/23/24 13:21 FiO2 Intake & Output 06/22/24 06/23/24 06/23/24 18:59 06:59 18:59 Intake Total 580 Output Total 500 310 Balance -500 270 Weight 57.606 kg Intake: Intake, IV Titration 550 Amount Sodium Chloride 0.9% 1, 300 000 ml @ 20 mls/hr IV . Q24H [facility] Rx#:[id number] Vancomycin 1,250 mg In 250 Sodium Chloride 0.9% 250 ml @ 125 mls/hr IVPB Q12H [facility] Rx#:[id number] Oral 30 Output: Urine 500 310 Other: Voiding Method Indwelling Catheter Indwelling Catheter Indwelling Catheter # Bowel Movements 1 - Constitutional General appearance: Present: no acute distress, thin - EENT Eyes: Present: anicteric sclerae, EOMI - Respiratory Details: resp unlabored - Neurologic Neurologic: Present: CNII-XII intact (grossly on observation) - Psychiatric Psychiatric Comment(s): alert, unable to assess orientation - Labs CBC & Chem 7: 06/23/24 05:34 06/23/24 05:34 Labs: Abnormal Lab Results - Last 24 Hours (Table) 06/23/24 06/23/24 Range/Units 05:34 05:34 WBC 11.04 H (4.50-10.00) X 10*3/uL RBC 2.74 L (4.10-5.20) X 10*6/uL Hgb 8.3 L (12.0-15.0) g/dL Hct 26.5 L (37.2-46.3) % MCHC 31.3 L (32.0-37.0) g/dL RDW 17.1 H (11.5-14.5) % MPV 8.7 L (9.5-12.2) FL Immature Gran # 0.18 H (0.00-0.04) X 10*3/uL Neutrophils # 8.56 H (1.80-7.70) X 10*3/uL NRBC/100 WBC Diff 0.02 H (0.00-0.01) X 10*3/uL Sodium 131 L (137-145) mmol/L Creatinine 1.32 H (0.52-1.04) mg/dL Assessment and Plan (1) Endometrial adenocarcinoma Current Visit: Yes Status: Acute Priority: High Code(s): C54.1 - MALIGNANT NEOPLASM OF ENDOMETRIUM SNOMED Code(s): 078012533 (2) Multiple myeloma Current Visit: Yes Status: Suspected Priority: Medium Code(s): C90.00 - MULTIPLE MYELOMA NOT HAVING ACHIEVED REMISSION SNOMED Code(s): 050673336 Plan: All of sons questions were answered to the best of my ability Reviewed with son pt current performance status-3. With a PS of 3 pt is not a candidate for systemic treatment for cancer. Risk of complications from treatment is very high as pt is not ambulatory independently, nutritional status is poor. No treatment could/would be given until infection cleared. Likely pt current presentation is multifactorial including infection and malignancy Discussed option of placing a PEG tube and then trying rehabilitation. If pt was successful, she could be a candidate for treatment. The likely villa of that is statistically very low. We discussed hospice. Encouraged son to talk with family. Order was placed for hospice informational session per family request Time with Patient: Greater than 30 (>60 min spent counseling and coordinating care)
[2024-06-23] MEDS: KETOROLAC 15 MG/ML 1 ML VIAL IVP PRN (18:09)
--- NOTE | 2024-06-24 06:08 | P.PN ---
Subjective Progress Note Date: 06/23/24 78-year-old female, history of hypertension, diabetes mellitus, dementia, metastatic uterine cancer, who presents to the emergency department for confusion, left-sided rib pain, and a sacral wound. Family states that she started seeming confused a couple of days ago, which typically occurs when she has a UTI. Additionally, she has a pressure ulcer to her sacrum that has been there for about a year. The family had been changing the dressings and monitoring it, however her son states that he started to notice green drainage coming from this a couple of days ago and is worried about infection. States that she has been septic before from this. Not currently on any antibiotics. Patient also complaining of lower back pain. Blood work completed in ED reveals a WBC of 6.3, hemoglobin of 8.1 and platelet count of 401, sodium 136, potassium 4.4, BUN/creatinine of 19/0.53 and blood glucose of 100, lactic acid level of 1.3, UA is positive for nitrites, leukocyte esterase, WBCs and bacteria, troponin is less than 0.012 Sacral decubitus ulcer, crater appears larger and remains full-thickness to the underlying coccyx. Bone loss minimally increased but no osseous disease; new cannonball pulmonary metastases throughout the visualized lungs measuring up to 3.1 cm with trace pleural effusion 06/16/2024 Patient is seen and evaluated in follow-up today currently sitting up in the chair and reports she is not having pain of the sacral wounds. Patient being followed by infectious disease and wound care has been consulted and will consult general surgery as the patient may benefit from some debridement of the sacral ulcer. Appreciate input and recommendations as patient has previously had extensive wound care on this ulcer along with the wound VAC previously. Patient is currently afebrile with no reports of chest pain or shortness of breath. Patient reports to tolerating diet with no reported nausea or vomiting. 06/17/2024 Patient is seen in follow-up today reports back pain and buttock pain and is extremely weak being followed by multiple consultations. Patient mentation is back to baseline and is continued on ceftriaxone with infectious disease following. Surgery was consulted and evaluated with no plans of surgical intervention at this time recommending to continue with wound care and antibiotics per ID. Patient is afebrile and white count is normal. Hemoglobin maintaining above 7 and currently 7.6. Kidney functions within normal limits. Plan is for patient to go home with family on discharge. Will have PT/OT therapy evaluate. 06/18/2024 Patient is seen and evaluated in follow-up this morning reporting severe pain in her lower back and buttock area and have adjusted medications. Patient is maintained on IV antibiotics in the form of vancomycin along with ceftriaxone and oral Flagyl with infectious disease following and patient will most likely require IV antibiotics on discharge as the patient had another CT of the sacrum done showing a loss of cortex at the distal dorsal sacrum and the sacrococcygeal vertebral body interface suspicious for osteomyelitis in these areas are adjacent to a posterior benign-appearing wound with a small amount of air ad jacent to the coccyx. Patient was evaluated by general surgery with no plans of surgical intervention recommending continuing with wound care. Patient's family plans on taking her home and they live in [place] to the son's home although there has been a discussion of IV antibiotic therapy on discharge which will need to be discussed and arranged with case management/family/infectious disease. Patient is afebrile and extremely weak and recommend PT/OT therapy evaluation. 06/19/2024 Patient is seen in follow-up today with no acute overnight issues noted. Discussed with infectious disease and patient will require a PICC line and IV antibiotics for minimum of 6 weeks outpatient. Per nursing staff patient was noted to have some cheeking with her medications with concerns of aspirations and speech evaluated the patient recommending to continue with current diet and supervision with meals as patient does have history of this previously although is not overtly aspirating on exam. Family will bring in foods of desire as patient prefers this. Patient will receive a PICC line sometime today and case management following arranging for outpatient antibiotics on discharge. Family will be caring for the patient on discharge and will be going home with them. Patient is currently afebrile with no reports of chest pain or shortness of breath. Patient is up in the chair and recommend sitting up in the chair more often. Continue with local wound care and offloading to the buttock area. 06/23/2024 Patient is seen and evaluated in follow-up this morning and appears to be clinically deteriorating. Patient is not eating and has no desire to eat and was evaluated by speech along with dietary and has no appetite. Patient attempted boost supplements and unsuccessful. Patient with multiple comorbidities ongoing and continued infection of the sacral wounds along with UTI as well as metastatic cancer. Family initially wanted to take the patient home and continue with IV antibiotics although after further discussion with oncology and infectious disease they have requested a hospice informational meeting. [facility] has been consulted and will discuss further with other family members regarding final decision. Review of systems: Constitutional: reports of fatigue, no fever, or chills Cardiovascular: No reports of chest pain or palpitations Respiratory: No reports of shortness of breath or cough GI: No reports of nausea, no reports of vomiting, not tolerating much of diet and has no appetite with no real desire to eat : No reports of dysuria or retention Neurovascular: reports of generalized weakness, no report of acute pain currently All medications have been reviewed Active Medications Acetaminophen (Acetaminophen Tab 325 Mg Tab) 650 mg PO Q6HR PRN PRN Reason: Mild Pain or Fever > 100.5 Last Admin: 06/22/24 13:57 Dose: 650 mg Hydrocodone Bitart/Acetaminophen (Hydrocodone/Apap 7.5-325mg 1 Each Tab) 1 each PO Q6HR PRN PRN Reason: Pain Last Admin: 06/24/24 03:19 Dose: 1 each Amlodipine Besylate (Amlodipine 10 Mg Tab) 10 mg PO DAILY [facility] Last Admin: 06/23/24 08:29 Dose: 10 mg Benztropine Mesylate (Benztropine Mesylate 1 Mg Tab) 1 mg PO BID [facility] Last Admin: 06/23/24 22:26 Dose: Not Given Folic Acid (Folic Acid 1 Mg Tab) 1 mg PO DAILY@1200 [facility] Last Admin: 06/23/24 08:30 Dose: 1 mg Haloperidol (Haloperidol 5 Mg Tab) 2.5 mg PO HS [facility] Last Admin: 06/23/24 22:26 Dose: Not Given Heparin Sodium (Porcine) (Heparin Sodium,Porcine 5,000 Unit/Ml 1 Ml Vial) 5,000 unit SQ Q12HR [facility] Last Admin: 06/23/24 22:27 Dose: Not Given Sodium Chloride (Saline 0.9%) 1,000 mls @ 75 mls/hr IV .[id number] [facility] Last Admin: 06/24/24 00:56 Dose: 75 mls/hr Ceftriaxone Sodium 2 gm/ (Sodium Chloride) 50 mls @ 100 mls/hr IVPB Q24HR [facility]; Protocol Last Admin: 06/23/24 08:30 Dose: 100 mls/hr Daptomycin 350 mg/ Sodium (Chloride) 50 mls @ 100 mls/hr IVPB Q24H [facility]; Protocol Last Admin: 06/23/24 12:23 Dose: 100 mls/hr Ketorolac Tromethamine (Ketorolac 15 Mg/Ml 1 Ml Vial) 15 mg IVP Q6HR PRN PRN Reason: Pain Stop: 06/28/24 18:04 Last Admin: 06/24/24 00:55 Dose: 15 mg Meloxicam (Meloxicam 7.5 Mg Tab) 7.5 mg PO DAILY [facility] Last Admin: 06/23/24 08:30 Dose: 7.5 mg Metoprolol Tartrate (Metoprolol Tartrate 25 Mg Tab) 25 mg PO TID [facility] Last Admin: 06/23/24 22:27 Dose: Not Given Metronidazole (Metronidazole 500 Mg Tab) 500 mg PO TID [facility]; Protocol Last Admin: 06/23/24 22:27 Dose: Not Given Morphine Sulfate (Morphine Sulfate 4 Mg/Ml Syringe) 4 mg IV Q4HR PRN PRN Reason: Severe Pain (Scale 7 to 10) Multivitamins (Multivitamins, Thera 1 Each Tab) 1 each PO DAILY@1200 [facility] Last Admin: 06/23/24 08:30 Dose: 1 each Naloxone HCl (Naloxone 0.4 Mg/Ml 1 Ml Vial) 0.2 mg IV Q2M PRN PRN Reason: Opioid Reversal Ondansetron HCl (Ondansetron 4 Mg/2 Ml Vial) 4 mg IVP Q8HR PRN PRN Reason: Nausea And Vomiting Pantoprazole Sodium (Pantoprazole 40 Mg Tablet) 40 mg PO [id number]-[id number] [facility] Last Admin: 06/23/24 08:30 Dose: 40 mg Thiamine HCl (Thiamine 100 Mg Tab) 100 mg PO BID-W/MEALS [facility] Last Admin: 06/23/24 16:45 Dose: Not Given Tramadol HCl (Tramadol 50 Mg Tab) 25 mg PO Q4H PRN PRN Reason: Moderate Pain Last Admin: 06/17/24 18:03 Dose: 25 mg Tramadol HCl (Tramadol 50 Mg Tab) 50 mg PO Q4H PRN PRN Reason: Severe Pain Last Admin: 06/23/24 05:19 Dose: 50 mg PHYSICAL EXAMINATION: GENERAL: The patient is extremely lethargic, although arousable but fatigues easily, alert and oriented x2, baseline, well developed, elderly appearing, thin built HEENT: Pupils are round and equally reacting to light. EOMI. no scleral icterus. No conjunctival pallor. Normocephalic, atraumatic. No pharyngeal erythema. No thyromegaly. CARDIOVASCULAR: S1 and S2 muffled PULMONARY: diminished breath sounds bilaterally with no wheezing or rhonchi noted. ABDOMEN: soft. Nontender on exam. non-distended, normoactive bowel sounds. No palpable organomegaly. MUSCULOSKELETAL: No joint swelling or deformity. EXTREMITIES: No cyanosis, clubbing, or pedal edema. NEUROLOGICAL: Gross neurological examination did not reveal any focal deficits. Diffuse weakness SKIN: No rashes. Assessment: -Confusion/altered mental status; likely toxic metabolic encephalopathy related to UTI/infected decubitus ulcer, present on admission, improving -Sacral decubitus ulcer, present on admission. Has been ongoing for over a year and did have a wound VAC previously. CT of the sacral region suggestive of osteomyelitis -Uterine cancer with new cannonball pulmonary metastases; patient has known history of uterine cancer with metastatic disease; CT of the abdomen pelvis reveals new cannonball pulmonary metastases -Hypertension -Hyperlipidemia -Dementia with behavioral disturbance -Degenerative joint disease/back pain history -Severe protein calorie malnutrition with a BMI of 21.8 -GI prophylaxis -DVT prophylaxis; SCDs/subcu heparin -No code Plan: Recommend to continue with current medications and management with infectious disease following maintained on IV antibiotics. Wound care following and making recommendations regarding wound care. CT of the sacral area suggestive of osteo myelitis and patient has received a PICC line and arranging for outpatient IV antibiotics on discharge. Case management is following and patient's family reports they would like to take her home to care for her. Patient is clinically declining and has not been eating with multiple disease processes and comorbidities ongoing family has requested a hospice informational and would like to discuss further with other family members regarding final decision. Recommend frequent position changes and offloading of the sacral area at least every 2 hours. Encouraged increase activity as tolerated and using an offloading pillow or supportive device to the sacral region while sitting. Recommend PT/OT therapy to follow Oncology on consult and have had lengthy discussions with the family as they were considering seeking care here as opposed to back in [place] again Due to multiple complex medical issues, overall prognosis is extremely poor and guarded Will discuss further with hospice once family members have discussed. Plan is likely to return to her home for hospice care and comfort measures. The impression and plan of care has been dictated by Lianna Avila, nurse practitioner as directed. Dr. Fortino MD I have performed a history and examination and MDM of this patient, discussed the same with the dictator, and agree with the dictator's assessment and plan as written ,documented as a scribe. Based on total visit time, I have performed more than 50% of the visit. Any additional findings or plans will be noted. Objective - Vital Signs Vital signs: Vital Signs Temp 98.8 F 06/24/24 00:56 Pulse 116 H 06/24/24 00:56 Resp 17 06/24/24 00:56 BP 136/78 06/24/24 00:56 Pulse Ox 97 06/24/24 00:56 FiO2 Intake & Output 06/23/24 06/23/24 06/24/24 06:59 18:59 06:59 Intake Total 580 1020 Output Total 310 350 Balance 270 670 Weight 57.606 kg Intake: Intake, IV Titration 550 900 Amount Sodium Chloride 0.9% 1, 300 900 000 ml @ 75 mls/hr IV . [id number] [facility] Rx#:[id number] Vancomycin 1,250 mg In 250 Sodium Chloride 0.9% 250 ml @ 125 mls/hr IVPB Q12H [facility] Rx#:[id number] Oral 30 120 Output: Urine 310 350 Other: Voiding Method Indwelling Catheter Indwelling Catheter Indwelling Catheter - Labs CBC & Chem 7: 06/23/24 05:34 06/23/24 05:34 Labs: Abnormal Lab Results - Last 24 Hours (Table) 06/23/24 06/23/24 Range/Units 05:34 05:34 WBC 11.04 H (4.50-10.00) X 10*3/uL RBC 2.74 L (4.10-5.20) X 10*6/uL Hgb 8.3 L (12.0-15.0) g/dL Hct 26.5 L (37.2-46.3) % MCHC 31.3 L (32.0-37.0) g/dL RDW 17.1 H (11.5-14.5) % MPV 8.7 L (9.5-12.2) FL Immature Gran # 0.18 H (0.00-0.04) X 10*3/uL Neutrophils # 8.56 H (1.80-7.70) X 10*3/uL NRBC/100 WBC Diff 0.02 H (0.00-0.01) X 10*3/uL Sodium 131 L (137-145) mmol/L Creatinine 1.32 H (0.52-1.04) mg/dL
--- NOTE | 2024-06-25 05:14 | P.PN ---
Subjective Progress Note Date: 06/24/24 78-year-old female, history of hypertension, diabetes mellitus, dementia, metastatic uterine cancer, who presents to the emergency department for confusion, left-sided rib pain, and a sacral wound. Family states that she started seeming confused a couple of days ago, which typically occurs when she has a UTI. Additionally, she has a pressure ulcer to her sacrum that has been there for about a year. The family had been changing the dressings and monitoring it, however her son states that he started to notice green drainage coming from this a couple of days ago and is worried about infection. States that she has been septic before from this. Not currently on any antibiotics. Patient also complaining of lower back pain. Blood work completed in ED reveals a WBC of 6.3, hemoglobin of 8.1 and platelet count of 401, sodium 136, potassium 4.4, BUN/creatinine of 19/0.53 and blood glucose of 100, lactic acid level of 1.3, UA is positive for nitrites, leukocyte esterase, WBCs and bacteria, troponin is less than 0.012 Sacral decubitus ulcer, crater appears larger and remains full-thickness to the underlying coccyx. Bone loss minimally increased but no osseous disease; new cannonball pulmonary metastases throughout the visualized lungs measuring up to 3.1 cm with trace pleural effusion 06/16/2024 Patient is seen and evaluated in follow-up today currently sitting up in the chair and reports she is not having pain of the sacral wounds. Patient being followed by infectious disease and wound care has been consulted and will consult general surgery as the patient may benefit from some debridement of the sacral ulcer. Appreciate input and recommendations as patient has previously had extensive wound care on this ulcer along with the wound VAC previously. Patient is currently afebrile with no reports of chest pain or shortness of breath. Patient reports to tolerating diet with no reported nausea or vomiting. 06/17/2024 Patient is seen in follow-up today reports back pain and buttock pain and is extremely weak being followed by multiple consultations. Patient mentation is back to baseline and is continued on ceftriaxone with infectious disease following. Surgery was consulted and evaluated with no plans of surgical intervention at this time recommending to continue with wound care and antibiotics per ID. Patient is afebrile and white count is normal. Hemoglobin maintaining above 7 and currently 7.6. Kidney functions within normal limits. Plan is for patient to go home with family on discharge. Will have PT/OT therapy evaluate. 06/18/2024 Patient is seen and evaluated in follow-up this morning reporting severe pain in her lower back and buttock area and have adjusted medications. Patient is maintained on IV antibiotics in the form of vancomycin along with ceftriaxone and oral Flagyl with infectious disease following and patient will most likely require IV antibiotics on discharge as the patient had another CT of the sacrum done showing a loss of cortex at the distal dorsal sacrum and the sacrococcygeal vertebral body interface suspicious for osteomyelitis in these areas are adjacent to a posterior benign-appearing wound with a small amount of air ad jacent to the coccyx. Patient was evaluated by general surgery with no plans of surgical intervention recommending continuing with wound care. Patient's family plans on taking her home and they live in [place] to the son's home although there has been a discussion of IV antibiotic therapy on discharge which will need to be discussed and arranged with case management/family/infectious disease. Patient is afebrile and extremely weak and recommend PT/OT therapy evaluation. 06/19/2024 Patient is seen in follow-up today with no acute overnight issues noted. Discussed with infectious disease and patient will require a PICC line and IV antibiotics for minimum of 6 weeks outpatient. Per nursing staff patient was noted to have some cheeking with her medications with concerns of aspirations and speech evaluated the patient recommending to continue with current diet and supervision with meals as patient does have history of this previously although is not overtly aspirating on exam. Family will bring in foods of desire as patient prefers this. Patient will receive a PICC line sometime today and case management following arranging for outpatient antibiotics on discharge. Family will be caring for the patient on discharge and will be going home with them. Patient is currently afebrile with no reports of chest pain or shortness of breath. Patient is up in the chair and recommend sitting up in the chair more often. Continue with local wound care and offloading to the buttock area. 06/23/2024 Patient is seen and evaluated in follow-up this morning and appears to be clinically deteriorating. Patient is not eating and has no desire to eat and was evaluated by speech along with dietary and has no appetite. Patient attempted boost supplements and unsuccessful. Patient with multiple comorbidities ongoing and continued infection of the sacral wounds along with UTI as well as metastatic cancer. Family initially wanted to take the patient home and continue with IV antibiotics although after further discussion with oncology and infectious disease they have requested a hospice informational meeting. [facility] has been consulted and will discuss further with other family members regarding final decision. 06/24/2024 Patient is seen in follow-up today lethargic although arousable with a family member at the bedside today. Family has met with hospice and case management following and would like to look into [facility] in the financials. Patient maintained on IV antibiotics and will continue. Family is concerned about any sedative agents and narcotics to make her more confused and would like to hold close possible. Patient continues to have pain in her lower back and sacral area and has been having some low-grade temps. Encouraged getting out of the bed more often and sitting up in the chair. Patient is extremely weak. Diet continues to be poor. Review of systems: Constitutional: reports of fatigue, no fever, or chills Cardiovascular: No reports of chest pain or palpitations Respiratory: No reports of shortness of breath or cough GI: No reports of nausea, no reports of vomiting, not tolerating much of diet and has no appetite with no real desire to eat : No reports of dysuria or retention Neurovascular: reports of generalized weakness, no report of acute pain currently All medications have been reviewed PHYSICAL EXAMINATION: GENERAL: The patient is extremely lethargic, although arousable but fatigues easily, alert and oriented x2, baseline, well developed, elderly appearing, thin built HEENT: Pupils are round and equally reacting to light. EOMI. no scleral icterus. No conjunctival pallor. Normocephalic, atraumatic. No pharyngeal erythema. No thyromegaly. CARDIOVASCULAR: S1 and S2 muffled PULMONARY: diminished breath sounds bilaterally with no wheezing or rhonchi noted. ABDOMEN: soft. Nontender on exam. non-distended, normoactive bowel sounds. No palpable organomegaly. MUSCULOSKELETAL: No joint swelling or deformity. EXTREMITIES: No cyanosis, clubbing, or pedal edema. NEUROLOGICAL: Gross neurological examination did not reveal any focal deficits. Diffuse weakness SKIN: No rashes. Assessment: -Confusion/altered mental status; likely toxic metabolic encephalopathy related to UTI/infected decubitus ulcer, present on admission, improving -Sacral decubitus ulcer, present on admission. Has been ongoing for over a year and did have a wound VAC previously. 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 Wound care following and making recommendations regarding wound care. CT of the sacral area suggestive of osteomyelitis and patient has received a PICC line and arranging for outpatient IV antibiotics on discharge. Case management is following and patient's family reports they would like to take her home to care for her. Patient is clinically declining and has not been eating with multiple disease processes and comorbidities ongoing family has requested a hospice informational and would like to discuss further with other family members regarding final decision. Would like to look into [facility] hospice house if they can afford. Referral placed and pending Recommend frequent position changes and offloading of the sacral area at least every 2 hours. Encouraged increase activity as tolerated and using an offloading pillow or supportive device to the sacral region while sitting. Recommend PT/OT therapy to follow Oncology on consult and have had lengthy discussions with the family as they were considering seeking care here as opposed to back in [place] again Due to multiple complex medical issues, overall prognosis is extremely poor and guarded Will discuss further with hospice once family members have discussed. Plan is likely to return to her home for hospice care and comfort measures or possibly hospice house. The impression and plan of care has been dictated by Lianna Avila, nurse practitioner as directed. Dr. Fortino MD I have performed a history and examination and MDM of this patient, discussed the same with the dictator, and agree with the dictator's assessment and plan as written ,documented as a scribe. Based on total visit time, I have performed more than 50% of the visit. Any additional findings or plans will be noted. Objective - Vital Signs Vital signs: Vital Signs Temp 99.8 F H 06/24/24 14:13 Pulse 107 H 06/24/24 14:13 Resp 20 06/24/24 14:13 BP 132/62 06/24/24 14:13 Pulse Ox 94 L 06/24/24 14:13 FiO2 Intake & Output 06/23/24 06/24/24 06/24/24 18:59 06:59 18:59 Intake Total 1020 Output Total 350 Balance 670 Weight 57.606 kg Intake: Intake, IV Titration 900 Amount Sodium Chloride 0.9% 1, 900 000 ml @ 75 mls/hr IV . [id number] [facility] Rx#:[id number] Oral 120 Output: Urine 350 Other: Voiding Method Indwelling Catheter Indwelling Catheter Indwelling Catheter - Labs CBC & Chem 7: 06/23/24 05:34 06/23/24 05:34
[2024-06-25 14:43] VITALS: BP 145/66; PULSE 90; RESP 16; TEMP 98.2
--- NOTE | 2024-06-25 14:52 | P.PN ---
Subjective Progress Note Date: 06/24/24 Principal diagnosis: Reason for follow-up is UTI and infected sacral ulcer Patient is a 78-year-old -[place] female with a past medical history significant for diabetes mellitus hypertension osteoarthritis dementia CVA TIA previous episode of sacral osteomyelitis, recent diagnosis of metastatic endometrial cancer has been brought into the hospital concerning for confusion and worsening sacral wound. On today's evaluation that is 06/24/2024,the patient remains to be afebrile, patient is on room air not requiring supplemental oxygen and does not seem to be any distress remains to be lethargic not a very good historian no vomiting or diarrhea has been reported No new lab draw today Objective - Vital Signs Vital signs: Vital Signs Temp 99.8 F H 06/24/24 14:13 Pulse 107 H 06/24/24 14:13 Resp 20 06/24/24 14:13 BP 132/62 06/24/24 14:13 Pulse Ox 94 L 06/24/24 14:13 FiO2 Intake & Output 06/23/24 06/24/24 06/24/24 18:59 06:59 18:59 Intake Total 1020 Output Total 350 Balance 670 Weight 57.606 kg Intake: Intake, IV Titration 900 Amount Sodium Chloride 0.9% 1, 900 000 ml @ 75 mls/hr IV . [id number] [facility] Rx#:[id number] Oral 120 Output: Urine 350 Other: Voiding Method Indwelling Catheter Indwelling Catheter Indwelling Catheter - Exam GENERAL DESCRIPTION: An elderly male lying in bed in no distress RESPIRATORY SYSTEM: Unlabored breathing , decreased breath sounds at bases HEART: S1 S2 regular rate and rhythm , ABDOMEN: Soft , no tenderness, EXTREMITIES: No edema feet - Labs CBC & Chem 7: 06/23/24 05:34 06/23/24 05:34 Assessment and Plan (1) Sacral decubitus ulcer Current Visit: Yes Status: Acute Code(s): L89.159 - PRESSURE ULCER OF SACRAL REGION, UNSPECIFIED STAGE SNOMED Code(s): 909651223 (2) Urinary tract infection Current Visit: Yes Status: Acute Code(s): N39.0 - URINARY TRACT INFECTION, SITE NOT SPECIFIED SNOMED Code(s): 30841975 Plan: 1patient presented to hospital with confusion which is likely multifactorial in this patient who did have a positive UA and also noticed to have worsening of her sacral wound concerning for sacral wound infection and possible osteo on the basis of the CT however the wound was not palpable on clinical examination. 2patient urine culture was finalized with an E. coli sacral ulcer culture growing Proteus and MRSA as well as Prevotella 3local wound care to the sacral wound with Aquacel silver dressing change every 48 hours discussed with the nursing staff. 4patient CT sacrum has been suspicious for osteomyelitis 5patient remains to be afebrile, patient noted to have slight worsening of the creatinine which is likely multifactorial possible prerenal Vanco trough was only 20.5 however has been discontinued patient was started on daptomycin which will be continued with the Rocephin awaiting decision regarding hospice Dictation was produced using [employer] dictation software. please excuse any grammatical, word or spelling errors. Time with Patient: Less than 30
--- NOTE | 2024-06-25 14:53 | P.PN ---
Subjective Progress Note Date: 06/25/24 Principal diagnosis: Reason for follow-up is UTI and infected sacral ulcer Patient is a 78-year-old -Portuguese female with a past medical history significant for diabetes mellitus hypertension osteoarthritis dementia CVA TIA previous episode of sacral osteomyelitis, recent diagnosis of metastatic endometrial cancer has been brought into the hospital concerning for confusion and worsening sacral wound. On today's evaluation that is 06/25/2024, the patient did have a low-grade fever of 99.9 F this morning the patient is afebrile since then the patient is slightly more awake alert today she is breathing comfortably room air no vomiting diarrhea or any the changes reported. Patient did not have the lab draw today Objective - Vital Signs Vital signs: Vital Signs Temp 99.9 F H 06/25/24 07:05 Pulse 111 H 06/25/24 07:05 Resp 22 06/25/24 07:05 BP 150/75 06/25/24 07:05 Pulse Ox 94 L 06/25/24 07:05 FiO2 Intake & Output 06/24/24 06/25/24 06/25/24 18:59 06:59 18:59 Output Total 1100 400 Balance -1100 -400 Weight 57.606 kg Output: Urine 1100 400 Other: Voiding Method Indwelling Catheter Indwelling Catheter Indwelling Catheter - Exam GENERAL DESCRIPTION: An elderly male lying in bed in no distress RESPIRATORY SYSTEM: Unlabored breathing , decreased breath sounds at bases HEART: S1 S2 regular rate and rhythm , ABDOMEN: Soft , no tenderness, EXTREMITIES: No edema feet - Labs CBC & Chem 7: 06/23/24 05:34 06/23/24 05:34 Assessment and Plan (1) Sacral decubitus ulcer Current Visit: Yes Status: Acute Code(s): L89.159 - PRESSURE ULCER OF SACRAL REGION, UNSPECIFIED STAGE SNOMED Code(s): 470264260 (2) Urinary tract infection Current Visit: Yes Status: Acute Code(s): N39.0 - URINARY TRACT INFECTION, SITE NOT SPECIFIED SNOMED Code(s): 62462740 Plan: 1patient presented to hospital with confusion which is likely multifactorial in this patient who did have a positive UA and also noticed to have worsening of her sacral wound concerning for sacral wound infection and possible osteo on the basis of the CT however the wound was not palpable on clinical examination. 2patient urine culture was finalized with an E. coli sacral ulcer culture growing Proteus and MRSA as well as Prevotella 3local wound care to the sacral wound with Aquacel silver dressing change every 48 hours discussed with the nursing staff. 4patient CT sacrum has been suspicious for osteomyelitis 5patient remains to be afebrile, patient noted to have slight worsening of the creatinine which is likely multifactorial possible prerenal Vanco trough was only 20.5 however vancomycin has been discontinued patient was started on daptomycin 6patient is currently on daptomycin and Rocephin awaiting final decision from the family regarding hospice, once switched to hospice antibiotic can be safely discontinued discussed with SHANK CARRIER for admitting team Dictation was produced using [employer] dictation software. please excuse any grammatical, word or spelling errors. Time with Patient: Less than 30
--- NOTE | 2024-06-26 14:11 | P.DS ---
Providers Date of admission: 06/14/24 13:49 Expected date of discharge: 06/25/24 Attending physician: Christa Freitas Consults: 06/14/24 13:58 Consult Physician Urgent Consulting Provider: Lisandro Coffman Consult Reason/Comments: Chest and back pain, suspected mets Do you want consulting provider notified?: Yes Consult Physician Urgent Consulting Provider: Monika Cotto Consult Reason/Comments: Possible infected sacral decubitus ulcer Do you want consulting provider notified?: Yes 06/17/24 07:52 Consult Physician Routine Consulting Provider: Savana Atwood Consult Reason/Comments: sacral ulcer ? debridement Do you want consulting provider notified?: Already Contacted Primary care physician: Stated None Hospital Course: Final diagnosis -Confusion/altered mental status; likely toxic metabolic encephalopathy related to UTI/infected decubitus ulcer, present on admission, improving -Sacral decubitus ulcer, present on admission. Has been ongoing for over a year and did have a wound VAC previously. 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 Patient will follow-up with primary care provider in the outpatient setting upon discharge. Total time taken is greater than 35 minutes. Hospital course This is a 78-year-old female who was recently admitted with altered mental status with toxic metabolic encephalopathy likely secondary to urinary tract infection as well as an infected decubitus ulcer with multiple consultations following. Patient does have a known history of uterine cancer and has received radiation while in [place] with family. Patient was found to have new cannonball pulmonary metastasis with overall 100 nodules on imaging. Patient with extensive decubitus ulcer that required wound VAC previously showing cultures this admission with Proteus Mirabella's, MRSA and initially was arranging for outpatient IV antibiotics with a PICC line per ID recommendations. Patient has clinically deteriorated and is not getting up and moving, is extremely weak and has been refusing to eat. Patient also with history of dementia. Family requested a informational hospice meeting and has met with [facility] as well as [facility] and would have no co-pay if going to the [facility] house. Family wishes to take the patient home with [facility] services. Patient will not be going home on antibiotic therapy per hospice protocol and family was made aware of this. Overall prognosis is extremely poor and guarded at this time. Currently no reports of chest pain, shortness of breath, or palpitations. Patient is afebrile. No reports of nausea or vomiting and barely eating. Patient has been having issues with swallowing at times even applesauce with pills. Patient will be going home with [facility] services today. Physical exam: Gen: This is a 78-year-old female who is awake although lethargic, minimally responsive at times, alert and oriented x 1, well-developed, elderly appearing HEENT: Head is atraumatic, normocephalic. Pupils equal, round. Sclerae is anicteric. NECK: Supple. No JVD. No lymphadenopathy. No thyromegaly. LUNGS: Clear to auscultation. No wheezes or rhonchi. No intercostal retractions. HEART: Regular rate and rhythm. No murmur. ABDOMEN: Soft. Bowel sounds are present. No masses. No tenderness. EXTREMITIES: No pedal edema. No calf tenderness. NEUROLOGICAL: Patient is awake, alert and oriented x1. Cranial nerves 2 through 12 are grossly intact. Diffusely weak Please refer to medication reconciliation sheet for a list of medications. The impression and plan of care has been dictated by Lianna Avila, Nurse Practitioner as directed. Dr. Yuliya MD I have performed a history and examination and MDM of this patient, discussed the same with the dictator, and agree with the dictator's assessment and plan as written ,documented as a scribe. Based on total visit time, I have performed more than 50% of the visit. Patient Condition at Discharge: Fair Plan - Discharge Summary New Discharge Prescriptions: New Acetaminophen Tab [Tylenol] 650 mg PO Q6HR PRN tab PRN Reason: Mild Pain Or Fever > 100.5 Continue Famotidine [Pepcid] 20 mg PO DAILY haloperidoL [Haldol] 2.5 mg PO HS #3 tab traMADol HCL 25 - 50 mg PO Q4H PRN PRN Reason: Pain Ondansetron Odt [Zofran ODT] 4 mg PO Q8HR PRN PRN Reason: Nausea And Vomiting Celecoxib [CeleBREX] 100 mg PO DAILY Benztropine Mesylate [Cogentin] 1 mg PO BID Atorvastatin [Lipitor] 40 mg PO DAILY Metoprolol Tartrate [Lopressor] 25 mg PO TID #0 Discharge Medication List Famotidine [Pepcid] 20 mg PO DAILY 07/29/23 [History] Metoprolol Tartrate [Lopressor] 25 mg PO TID #0 08/09/23 [Rx] haloperidoL [Haldol] 2.5 mg PO HS #3 tab 08/09/23 [Rx] Atorvastatin [Lipitor] 40 mg PO DAILY 06/14/24 [History] Benztropine Mesylate [Cogentin] 1 mg PO BID 06/14/24 [History] Celecoxib [CeleBREX] 100 mg PO DAILY 06/14/24 [History] Ondansetron Odt [Zofran ODT] 4 mg PO Q8HR PRN 06/14/24 [History] traMADol HCL 25 - 50 mg PO Q4H PRN 06/14/24 [History] Acetaminophen Tab [Tylenol] 650 mg PO Q6HR PRN tab 06/25/24 [Rx] Follow up Appointment(s)/Referral(s): [facility] [NON-STAFF] - 1 Week Monika Cotto MD [STAFF PHYSICIAN] - 1 Week [facility] Visiting Nurse, [NON-STAFF] - 1 Week Janet Sultana MD [STAFF PHYSICIAN] - 1-2 days Activity/Diet/Wound Care/Special Instructions: Activity limited until follow-up Follow-up with hospice in the home Continue comfort measures Discharge Disposition: HOME WITH HOSPICE
== END 2024-06-25 18:34 | disposition still patient (30) | DRG 592 ==
LOC: EC 07:24 → SUPCPDRO 07:24 → 5NMEDONC 13:49
PROVIDERS: ADMIT Hospitalist; ATTEND Hospitalist
PROC: 02HV33Z Insertion of Infusion Device into Superior Vena Cava, Percutaneous Approach (ICD-10-PCS; principal; 2024-06-19 17:20)
DX: L89.153 Pressure ulcer of sacral region, stage 3 (principal); E43 Unspecified severe protein-calorie malnutrition; G92.8 Other toxic encephalopathy; C78.02 Secondary malignant neoplasm of left lung; C78.01 Secondary malignant neoplasm of right lung; M86.8X8 Other osteomyelitis, other site; F03.918 Unspecified dementia, unspecified severity, with other behavioral disturbance; C90.00 Multiple myeloma not having achieved remission; N39.0 Urinary tract infection, site not specified; E11.69 Type 2 diabetes mellitus with other specified complication; C54.1 Malignant neoplasm of endometrium; D63.0 Anemia in neoplastic disease; Z51.5 Encounter for palliative care; Z66 Do not resuscitate; I69.328 Other speech and language deficits following cerebral infarction; I10 Essential (primary) hypertension; M19.90 Unspecified osteoarthritis, unspecified site; M47.9 Spondylosis, unspecified; E78.5 Hyperlipidemia, unspecified; B96.20 Unspecified Escherichia coli [E. coli] as the cause of diseases classified elsewhere; B96.4 Proteus (mirabilis) (morganii) as the cause of diseases classified elsewhere; B95.62 Methicillin resistant Staphylococcus aureus infection as the cause of diseases classified elsewhere; B96.89 Other specified bacterial agents as the cause of diseases classified elsewhere; Z68.21 Body mass index [BMI] 21.0-21.9, adult; Z86.19 Personal history of other infectious and parasitic diseases; Z92.3 Personal history of irradiation; Z79.1 Long term (current) use of non-steroidal anti-inflammatories (NSAID); Z79.899 Other long term (current) drug therapy; Z86.14 Personal history of Methicillin resistant Staphylococcus aureus infection
CPT/HCPCS: 36415; 36573; 71045; 71046; 71260; 72192; 74177; 80048; 80053; 80202; 81001; 82565; 83605; 83735; 84100; 84145; 84484; 85025; 85610; 85652; 86140; 86850; 86900; 86901; 86920; 87040; 87070; 87075; 87077; 87086; 87186; 87205; 93005; 96365; 96366; 96375; 96376; 99285